=== PATIENT | female | born 1960 | race Caucasian/White ===

== ENCOUNTER 2021-07-16 17:58 | Inpatient (IN) | payer BC, SELFPAY ==
[2021-07-16] VITALS (7 sets, daily range): BP systolic 101–124; BP diastolic 48–75; PULSE 53–99; RESP 16–18; TEMP 36.3; O2SAT 91–97; BMI 25.3
--- NOTE | 2021-07-16 18:15 | XR_ITS ---
PROCEDURE INFORMATION: Exam: XR Chest Exam date and time: 07/16/2021 6:13 PM Age: 60 years old Clinical indication: Shortness of breath; Additional info: SOA TECHNIQUE: Imaging protocol: XR of the chest. Views: 2 views. COMPARISON: CR KUB KUB (SINGLE VIEW) 07/19/2015 9:05 AM FINDINGS: Lungs: Patchy ground-glass regions of opacification. Pleural spaces: Unremarkable. No pleural effusion. No pneumothorax. Heart/Mediastinum: Unremarkable. No cardiomegaly. Diaphragm: Hyperlucent changes are demonstrated. There is flattening of the hemidiaphragms. Increase in the lung volumes is demonstrated. Superimposed regions of parenchymal scarring in the upper and lower lobes are suggested. Bones/joints: Osteopenia. Scoliosis of the lower thoracic spine convexity to the left. IMPRESSION: 1. Chronic obstructive pulmonary disease. 2. Superimposed findings suggesting regions of interstitial lung disease. Could not exclude atypical viral process. Clinically correlate.
[2021-07-16 19:44] LABS: Coronavirus 19, PCR Not Detected (NotDetected); Influenza A, PCR Not Detected (NotDetected); Influenza B, PCR Not Detected (NotDetected)
[2021-07-16 20:01] LABS: Strep Scrn Group A (Rapid) Negative (Negative)
--- NOTE | 2021-07-16 21:06 | HMH.EDNVD ---
ED Disposition Clinical Impression: COPD with respiratory distress, acute, Severe sepsis with acute organ dysfunction, Hypokalemia Osteopenia Qualifiers: Osteopenia location: unspecified Qualified Code(s): M85.80 - Other specified disorders of bone density and structure, unspecified site Scoliosis Qualifiers: Scoliosis type: unspecified scoliosis Spinal region: thoracic Qualified Code(s): M41.9 - Scoliosis, unspecified Disposition: Admitted As Inpatient Condition on Discharge: Fair - Critical Care Critical Care Time: No Attestation: On 07/16/21, the high probability of a clinically significant, sudden or life threatening deterioration of the following system(s) required my full and direct attention, intervention and personal management. The time I documented below is in addition to time spent performing reported procedures but includes the following listed in this critical care notation. Medical Decision Making - Medical Records Medical records reviewed: Yes: I reviewed the patient's medical records. - Tin Inquiry Pt receiving controlled substance: No Vital Signs: 07/16/21 17:59 07/16/21 18:15 07/16/21 19:30 Temperature 97.3 F L Temperature Source Oral Pulse Rate 70 99 H Pulse Rate [Right Brachial] 53 L Respiratory Rate 16 18 Blood Pressure 111/68 104/71 L Blood Pressure [Right Arm] 121/72 Blood Pressure Mean 79 Blood Pressure Mean [Right Arm] 88 Blood Pressure Source Automatic Cuff Blood Pressure Source [Right Arm] Automatic Cuff Blood Pressure Position Sitting Blood Pressure Position [Right Arm] Sitting 02 Sat by Pulse Oximetry 91 L 94 L 92 L Oxygen Delivery Method Room Air Room Air Room Air 07/16/21 20:00 07/16/21 20:30 Temperature Temperature Source Pulse Rate 98 H 88 Pulse Rate [Right Brachial] Respiratory Rate Blood Pressure 124/75 112/66 Blood Pressure [Right Arm] Blood Pressure Mean 89 85 Blood Pressure Mean [Right Arm] Blood Pressure Source Blood Pressure Source [Right Arm] Blood Pressure Position Blood Pressure Position [Right Arm] 02 Sat by Pulse Oximetry 94 L Oxygen Delivery Method Room Air - Lab Data Lab results reviewed: Yes: I reviewed the patient's lab results. Lab Results 07/16/21 19:37: Group A Strep Rapid Negative 07/16/21 19:38: SARS-CoV-2 (PCR) Not detected, Influenza A Untype (PCR) Not detected, Influenza Type B (PCR) Not detected 07/16/21 21:07: WBC 23.6 H*, RBC 3.93 L, Hgb 13.0, Hct 39.3, MCV 100.0 H, MCH 33.2 H, MCHC 33.1, RDW 15.0, Plt Count 370, MPV 9.8, Neut % (Auto) 78.5, Lymph % (Auto) 13.6, [place] % (Auto) 4.6, Eos % (Auto) 0.7, Baso % (Auto) 2.6 H, Neut # (Auto) 18.6 H, Lymph # (Auto) 3.2, [place] # (Auto) 1.1 H, Eos # (Auto) 0.2, Baso # (Auto) 0.6 H, Total Counted 100, Neutrophils % (Manual) 65, Lymphocytes % (Manual) 30, Monocytes % (Manual) 4, Basophils % (Manual) 1.0, Platelet Estimate Normal, Anisocytosis 1+, Macrocytosis 1+, ESR 57 H 07/16/21 21:07: Sodium 134 L, Potassium 2.5 L*, Chloride 93 L, Carbon Dioxide 32 H, Anion Gap 11.5, BUN 10, Creatinine 1.20 H, Estimated Creat Clear 41, Estimated GFR 46 L, Est GFR ( Amer) 56 L, Glucose 85, Calcium 8.9, Total Bilirubin 0.4, AST 25, ALT 13, Alkaline Phosphatase 121, Troponin I < 0.01, C-Reactive Protein 263.4 H, NT-Pro-B Natriuret Pep 279 H, Total Protein 7.4, Albumin 3.6, Globulin 3.8 H, Albumin/Globulin Ratio 0.9 L, Procalcitonin 0.662, TSH 0.22 L, Thyroxine (T4) 9.2 07/16/21 21:07: Lactate 1.3 07/16/21 22:39: Specimen Source Right radial, O2 % 21, ABG pH 7.44, ABG pCO2 32.4 L, ABG pO2 54.3 L, ABG HCO3 21.6 L, ABG Total CO2 22.6 L, ABG O2 Saturation 89 L, ABG Base Excess -2.6 L, Greg Test Acceptable Result diagrams: 07/16/21 21:07 07/16/21 21:07 Orders (Tests/Meds): ED MEDICATIONS Generic Name Dose Route Start Last Admin Trade Name Freq PRN Reason Stop Dose Admin Sodium Chloride 1,000 mls @ 999 mls/hr 07/16/21 21:15 07/16/21 21:10 Sod Chlor 0.9% 1
--- NOTE | 2021-07-16 21:10 | ECG_ITS ---
APPROVED REPORT Exam: Resting ECG HR:84 bpm ECG Measurements Heart Rate 84 AXES KS 128 P 69 QRSd 82 QRS 60 QT 374 T 77 QTc 416 Conclusion SINUS RHYTHM INDETERMINATE AXIS NORMAL ECG UNCONFIRMED REPORT Electronically signed by : Martin Low MD 07/17/2021 17:23:09
[2021-07-16 21:18] LABS: Basophils # 0.6 K/mm3 (0-0.2); Basophils % 2.6 % (0.1-2.0); Eosinophils # 0.2 K/mm3 (0.0-0.4); Eosinophils % 0.7 % (0.1-12.0); Hematocrit 39.3 % (37.0-47.0); Lymphocytes # 3.2 K/mm3 (0.7-4.5); Lymphocytes % 13.6 % (10-50); Mean Corpuscular HGB Conc 33.1 g/dL (31.8-35.4); Mean Corpuscular Hemoglobin 33.2 pg (27.0-31.2); Mean Platelet Volume 9.8 fl (7.4-10.4); Monocytes # 1.1 K/mm3 (0.1-1.0); Monocytes % 4.6 % (1.7-9.3); Neutrophils # 18.6 K/mm3 (1.8-7.8); Neutrophils % 78.5 % (37.0-80.0); Platelet Count 370 K/mm3 (142-424); Red Blood Count 3.93 M/mm3 (4.20-5.40); White Blood Count 23.6 K/mm3 (4.8-10.8)
[2021-07-16 21:29] LABS: MANUAL DIFFERENTIAL MANUAL DIFFERENTIAL (MANUAL DIFF)
[2021-07-16 21:42] LABS: Alanine Aminotransferase 13 U/L (12-78); Albumin Level 3.6 g/dl (3.5-5.0); Albumin/Globulin Ratio 0.9 (1.1-1.8); Alkaline Phosphatase 121 U/L (38-126); Anion Gap 11.5 mEq/L (5-15); Aspartate Amino Transferase 25 U/L (14-36); Bilirubin,Total 0.4 mg/dl (0.2-1.3); Blood Urea Nitrogen 10 mg/dl (7-17); Calcium 8.9 mg/dl (8.4-10.2); Carbon Dioxide 32 mmol/L (22.0-30.0); Chloride 93 mmol/L (98-107); Creatinine Clearance Estimated 41 mL/min (50-200); Estimated Glomerular Filt Rate 46 ml/min (>60); GFR (African American) 56 ML/MIN (>60); Globulin 3.8 g/dL (1.3-3.2); Glucose 85 mg/dl (74-100); Sodium 134 mmol/L (136-145); Total Protein,Serum 7.4 g/dl (6.3-8.2)
[2021-07-16 21:48] LABS: C-Reactive Protein 263.4 mg/L (0-4)
[2021-07-16 21:49] LABS: Potassium 2.5 mmoL/L (3.5-5.1)
--- NOTE | 2021-07-16 21:52 | PC.NURSE ---
notified luis antonio of critical potassium
[2021-07-16 21:58] LABS: NT Pro Brain Natriuretic Pep. 279 pg/mL (0-125)
[2021-07-16 22:03] LABS: Procalcitonin 0.662 ng/mL (0.0-2.0); T4 (Thyroxine) 9.2 ug/dl (5.53-11.0)
[2021-07-16 22:15] LABS: Troponin I < 0.01 ng/ml (0.00-0.034)
[2021-07-16 22:16] LABS: Thyroid Stimulating Hormone 0.22 uIU/mL (0.465-4.68)
[2021-07-16 22:19] LABS: Anisocytosis 1+; Lymphocytes % 30 % (10-50); Macrocytosis 1+; Monocytes % 4 % (2-9); Neutrophils % 65 % (42-76); Platelet Estimate Normal; Total Cells Counted 100
[2021-07-16 22:25] LABS: Erythrocyte Sedimentation Rate 57 mm/hr (0-30)
[2021-07-16 22:26] LABS: Lactic Acid 1.3 mmol/L (0.7-2.1)
--- NOTE | 2021-07-16 22:40 | PC.NURSE ---
Dr. Allen s/w pt and family. Ambulated pt and she walked 5 feet and became SOA, dizziness and weak. Will obtain orthostatic BP
[2021-07-16 22:50] LABS: ABG Base Excess -2.6 mmol/L (-2.4-2.3); ABG HCO3 21.6 mmhg (22.0-26.0); ABG Oxygen Saturation 89 % (90-100); ABG PCO2 32.4 mmhg (35.0-45.0); ABG PH 7.44 mmol/L (7.35-7.45); ABG PO2 54.3 mmhg (80-100); ABG TCO2 22.6 mmhg (23-27); Allen's Test Acceptable; Oxygen 21 %; Source Right Radial
--- NOTE | 2021-07-16 23:44 | PC.NURSE ---
MD aware of ABG and would like to start pt on Vapotherm
[2021-07-17] VITALS (12 sets, daily range): BP systolic 102–113; BP diastolic 44–70; PULSE 65–102; RESP 16–22; TEMP 36.5–36.8; O2SAT 90–98; BMI 24.4
--- NOTE | 2021-07-17 00:12 | PC.NURSE ---
RT placed pt on vapotherm at 30L and 40%, pt tolerating well.
[2021-07-17 00:39] LABS: Troponin I < 0.01 ng/ml (0.00-0.034)
--- NOTE | 2021-07-17 01:32 | PC.NURSE ---
Patient arrived to the floor at this time via wheelchair.
[2021-07-17 03:48] LABS: Basophils # 0.2 K/mm3 (0-0.2); Basophils % 0.8 % (0.1-2.0); Eosinophils % 0.1 % (0.1-12.0); Hematocrit 36.9 % (37.0-47.0); Hemoglobin 12.1 g/dL (12.2-16.2); Lymphocytes # 1.9 K/mm3 (0.7-4.5); Lymphocytes % 8.7 % (10-50); Mean Corpuscular HGB Conc 32.7 g/dL (31.8-35.4); Mean Corpuscular Hemoglobin 33.2 pg (27.0-31.2); Mean Corpuscular Volume 101.4 fl (81-99); Mean Platelet Volume 9.7 fl (7.4-10.4); Monocytes # 0.2 K/mm3 (0.1-1.0); Neutrophils # 19.3 K/mm3 (1.8-7.8); Neutrophils % 89.3 % (37.0-80.0); Platelet Count 328 K/mm3 (142-424); Red Blood Count 3.64 M/mm3 (4.20-5.40); Red Cell Distribution Width 15.1 % (11.5-17.5)
[2021-07-17 03:49] LABS: White Blood Count 21.6 K/mm3 (4.8-10.8)
[2021-07-17 03:54] LABS: Anion Gap 15.2 mEq/L (5-15); Blood Urea Nitrogen 10 mg/dl (7-17); Calcium 8.1 mg/dl (8.4-10.2); Carbon Dioxide 24 mmol/L (22.0-30.0); Chloride 98 mmol/L (98-107); Creatinine Clearance Estimated 40 mL/min (50-200); Estimated Glomerular Filt Rate 46 ml/min (>60); GFR (African American) 56 ML/MIN (>60); Magnesium 1.7 mg/dl (1.6-2.3); Potassium 3.2 mmoL/L (3.5-5.1); Sodium 134 mmol/L (136-145)
[2021-07-17 03:56] LABS: Glucose 249 mg/dl (74-100)
[2021-07-17 04:09] LABS: Troponin I < 0.01 ng/ml (0.00-0.034)
--- NOTE | 2021-07-17 05:00 | PC.NURSE ---
Patient admitted to floor. Patient A&O x4. Patient tolerating vapotherm well sats in the high 90's. Productive cough noted. Patient now resting no new complaints at this time. VSS.
--- NOTE | 2021-07-17 09:15 | HMH.ACPN2 ---
Internal Medicine - PN: Subj *Date: 07/17/21 *Time: 18:58 Interval history: pt with slight improvement Exam Vital signs and Labs for Last 24 Hours: Temp Pulse Resp BP Pulse Ox 98.3 F 72 22 106/44 L 93 L 07/17/21 04:00 07/17/21 06:55 07/17/21 04:00 07/17/21 04:00 07/17/21 06:55 Laboratory Results - last 24 hr 07/16/21 19:37: Group A Strep Rapid Negative 07/16/21 19:38: SARS-CoV-2 (PCR) Not detected, Influenza A Untype (PCR) Not detected, Influenza Type B (PCR) Not detected 07/16/21 21:07: WBC 23.6 H*, RBC 3.93 L, Hgb 13.0, Hct 39.3, MCV 100.0 H, MCH 33.2 H, MCHC 33.1, RDW 15.0, Plt Count 370, MPV 9.8, Neut % (Auto) 78.5, Lymph % (Auto) 13.6, [place] % (Auto) 4.6, Eos % (Auto) 0.7, Baso % (Auto) 2.6 H, Neut # (Auto) 18.6 H, Lymph # (Auto) 3.2, [place] # (Auto) 1.1 H, Eos # (Auto) 0.2, Baso # (Auto) 0.6 H, Total Counted 100, Neutrophils % (Manual) 65, Lymphocytes % (Manual) 30, Monocytes % (Manual) 4, Basophils % (Manual) 1.0, Platelet Estimate Normal, Anisocytosis 1+, Macrocytosis 1+, ESR 57 H 07/16/21 21:07: Sodium 134 L, Potassium 2.5 L*, Chloride 93 L, Carbon Dioxide 32 H, Anion Gap 11.5, BUN 10, Creatinine 1.20 H, Estimated Creat Clear 41, Estimated GFR 46 L, Est GFR ( Amer) 56 L, Glucose 85, Calcium 8.9, Total Bilirubin 0.4, AST 25, ALT 13, Alkaline Phosphatase 121, Troponin I < 0.01, C-Reactive Protein 263.4 H, NT-Pro-B Natriuret Pep 279 H, Total Protein 7.4, Albumin 3.6, Globulin 3.8 H, Albumin/Globulin Ratio 0.9 L, Procalcitonin 0.662, TSH 0.22 L, Thyroxine (T4) 9.2 07/16/21 21:07: Lactate 1.3 07/16/21 22:39: Specimen Source Right radial, O2 % 21, ABG pH 7.44, ABG pCO2 32.4 L, ABG pO2 54.3 L, ABG HCO3 21.6 L, ABG Total CO2 22.6 L, ABG O2 Saturation 89 L, ABG Base Excess -2.6 L, Greg Test Acceptable 07/17/21 00:06: Troponin I < 0.01 07/17/21 03:35: Sodium 134 L, Potassium 3.2 L D, Chloride 98, Carbon Dioxide 24, Anion Gap 15.2 H, BUN 10, Creatinine 1.20 H, Estimated Creat Clear 40, Estimated GFR 46 L, Est GFR ( Amer) 56 L, Glucose 249 H D, Calcium 8.1 L, Magnesium 1.7, Troponin I < 0.01 07/17/21 03:35: WBC 21.6 H*, RBC 3.64 L, Hgb 12.1 L, Hct 36.9 L, MCV 101.4 H, MCH 33.2 H, MCHC 32.7, RDW 15.1, Plt Count 328, MPV 9.7, Neut % (Auto) 89.3 H, Lymph % (Auto) 8.7 L, [place] % (Auto) 1.0 L, Eos % (Auto) 0.1, Baso % (Auto) 0.8, Neut # (Auto) 19.3 H, Lymph # (Auto) 1.9, [place] # (Auto) 0.2, Eos # (Auto) 0.0, Baso # (Auto) 0.2 I & O for Last 24 hours: Intake & Output 07/14/21 07/15/21 07/16/21 07/17/21 11:59 11:59 11:59 11:59 Intake Total 1300 / 1300 Balance 1300 / 1300 Weight 108 lb 8 oz Microbiology Reports for the Last 24 Hours: Microbiology 07/16/21 21:50 Sputum - Expectorated Sputum Gram Stain - Final - Constitutional no acute distress - *Routine HEENT Exam Head: Present: normocephalic Eye: Present: EOMI, PERRL ENT: Present: mucous membranes dry - *Routine Neck Exam Absent: JVD - *Routine Respiratory Exam Present: decreased breath sounds, wheezes - *Routine Cardiovascular Exam Present: RRR, murmur - *Routine Abdominal Exam Present: soft - *Routine Extremities Exam Absent: calf tenderness - *Routine Skin Exam Present: intact - *Routine Neurological Exam Present: alert, CN II-XII intact - Routine Psychiatric Exam Present: normal affect Assessment and Plan (1) COPD with respiratory distress, acute Status: Acute Category: Medical Code(s): J44.1 - Chronic obstructive pulmonary disease with (acute) exacerbation (2) Osteopenia Status: Acute Qualifiers: Osteopenia location: unspecified Qualified Code(s): M85.80 - Other specified disorders of bone density and structure, unspecified site Category: Medical Code(s): M85.80 - Other specified disorders of bone density and structure, unspecified site (3) Scoliosis Status: Acute Qualifiers: Scoliosis type: unspecified scoliosis Spinal region: thoracic Qualified Code(s): M41.9 - Scolio
--- NOTE | 2021-07-17 13:13 | HMH.PHAVTE ---
[facility] Pharmacy VTE Monitoring - Patient Demographics Allergies/Adverse Reactions: Patient Allergies No Known Allergies Allergy (Verified 04/11/18 09:22) Height: 1.42 m Weight: 49.215 kg Patient Problems: Current Active Problems COPD with respiratory distress, acute (Acute) Osteopenia (Acute) Scoliosis (Acute) Severe sepsis with acute organ dysfunction (Acute) Hypokalemia (Acute) - VTE Risk Labs: VTE Related Lab Results Hgb 12.1 g/dL (12.2-16.2) L 07/17/21 03:35 Hct 36.9 % (37.0-47.0) L 07/17/21 03:35 Plt Count 328 K/mm3 (142-424) 07/17/21 03:35 BUN 10 mg/dl (7-17) 07/17/21 03:35 Creatinine 1.20 mg/dl (0.52-1.04) H 07/17/21 03:35 Estimated Creat Clear 40 mL/min (50-200) 07/17/21 03:35 Was VTE Risk Assessment Performed: Yes VTE Score: 3 VTE Risk Level: Low Risk Clinical Trial Participant: No - Prophylaxis VTE Prophylaxis Ordered?: Yes Types of VTE Prophylaxis: TEDS Knee High Location of Applied Device: Refused
--- NOTE | 2021-07-17 13:14 | HMH.PHAINT ---
MEDICATION RECONCILIATION COMPLETE USING LIST FROM MD OFFICE (DR. MARYBEL ROJAS) AND EXTERNAL PHARMACY FILL HISTORY.
--- NOTE | 2021-07-17 19:00 | HMH.HP ---
*Admission Date: 07/16/21 *Chief complaint: sob *History of present illness: this patient presented to the ed with progressive sob and prod cough over the last few days despite home meds - has known copd and tob use - pt was seen in the ed and noted to have resp failure and sepsis and was admitted with orders [facility] History I have reviewed the patient's past medical history: Yes Medical History: Reports:: Cancer (Past cervical CA) Denies:: Diabetes Mellitus Type 1, Diabetes Mellitus Type 2, Internal Pacemaker, Lung Disease, MRSA, Seizures *Have you ever received a pneumonia vaccine?: Yes *Have you received a flu vaccine this season?: No Other Medical History: Reports: Anemia, Arthritis Other Surgeries: Yes: Colonoscopy, Colon Resection, Other. No: Pacemaker Amputation: No - *Social History Last grade of school completed: 11th or 12th Smoking Status: Former smoker Tobacco Type: cigarettes # Packs/Day (cigarettes): 1 #Yrs smoked (if former smoker): 40 Smoking End Date: 07/14/21 Alcohol Intake: current Alcohol Intake Frequency:: holidays/special occasions only Substance Use Type: denies use *Occupational Status:: unemployed Housing: apartment Household Members: spouse, children *Travel in the last 8 weeks: None Family Hx:: Coronary Artery Disease, Hypertension Review of Systems - Review of Systems Review of systems:: pertinent systems reviewed and negative unless documented below - Constitutional Reports weakness, Denies fever(s) - Eyes Denies change in vision - ENT Denies sore throat - *Cardiovascular Reports shortness of breath - *Respiratory Reports change in phlegm color, Reports cough, Reports wheezing, Denies coughing up blood - *Gastrointestinal Denies abdominal pain - *Genitourinary Denies blood in urine - *Musculoskeletal Denies joint pain - Integumentary/Breasts Denies rash - *Neurologic Denies localized weakness - Psychiatric Reports anxiety Meds Home Medications Medication Instructions Recorded Confirmed Type ibuprofen 800 mg tablet 800 mg PO BID 03/07/18 07/16/21 History Adalimumab [Humira Pen] 40 mg SQ .Q2WEEK 07/16/21 07/17/21 History Albuterol Sulfate [Proair Hfa] 2 puff IH Q4HP PRN 07/16/21 07/16/21 History Escitalopram Oxalate [Lexapro] 20 mg PO DAILY 07/16/21 07/16/21 History Folic Acid [Folic Acid 1mg tablet] 1 mg PO DAILY 07/16/21 07/16/21 History Furosemide [Furosemide 20mg Tab*] 20 mg PO DAILY 07/16/21 07/16/21 History Gabapentin [Neurontin 600mg 600 mg PO DAILY 07/16/21 07/16/21 History tablet] Hydroxychloroquine Sulfate 200 mg PO DAILY 07/16/21 07/17/21 History [Plaquenil 200mg tablet] Potassium Chloride [Klor-con 20 20 meq PO BID 07/16/21 07/16/21 History mEq tablet] metHOTREXate sodium [metHOTREXate 15 mg PO WEEKLY 07/16/21 07/17/21 History 2.5mg Tablet] Famotidine [Pepcid] 40 mg PO DAILY 07/17/21 07/17/21 History Allergies Allergy/AdvReac Type Severity Reaction Status Date / Time No Known Allergies Allergy Verified 04/11/18 09:22 Exam Vital signs and Labs for Last 24 Hours: Temp Pulse Resp BP Pulse Ox 98.3 F 81 16 110/67 94 L 07/17/21 16:00 07/17/21 16:00 07/17/21 16:00 07/17/21 16:00 07/17/21 16:00 Laboratory Results - last 24 hr 07/16/21 19:37: Group A Strep Rapid Negative 07/16/21 19:38: SARS-CoV-2 (PCR) Not detected, Influenza A Untype (PCR) Not detected, Influenza Type B (PCR) Not detected 07/16/21 21:07: WBC 23.6 H*, RBC 3.93 L, Hgb 13.0, Hct 39.3, MCV 100.0 H, MCH 33.2 H, MCHC 33.1, RDW 15.0, Plt Count 370, MPV 9.8, Neut % (Auto) 78.5, Lymph % (Auto) 13.6, [place] % (Auto) 4.6, Eos % (Auto) 0.7, Baso % (Auto) 2.6 H, Neut # (Auto) 18.6 H, Lymph # (Auto) 3.2, [place] # (Auto) 1.1 H, Eos # (Auto) 0.2, Baso # (Auto) 0.6 H, Total Counted 100, Neutrophils % (Manual) 65, Lymphocytes % (Manual) 30, Monocytes % (Manual) 4, Basophils % (Manual) 1.0, Platelet Estimate Normal, Anisocytosis 1+, Macrocytosis 1+, ESR 57 H 06
[2021-07-18] VITALS (9 sets, daily range): BP systolic 98–121; BP diastolic 56–79; PULSE 58–111; RESP 16–22; TEMP 36.4–36.8; O2SAT 92–99; BMI 24.5
--- NOTE | 2021-07-18 04:00 | PC.NURSE ---
pt rested at intervals through night, coughing spells frequently noted, no productive cough, iv restarted, no other issues noted, vital signs stable, o2 at 4L pnc, lungs diminished.
--- NOTE | 2021-07-18 11:55 | HMH.ACPN2 ---
Internal Medicine - PN: Subj *Date: 07/18/21 *Time: 19:47 Interval history: doing better but still on o2 and sob with min exertion Exam Vital signs and Labs for Last 24 Hours: Temp Pulse Resp BP Pulse Ox 97.7 F 111 H 18 107/56 L 92 L 07/18/21 08:00 07/18/21 08:00 07/18/21 08:00 07/18/21 08:00 07/18/21 08:00 I & O for Last 24 hours: Intake & Output 07/15/21 07/16/21 07/17/21 07/18/21 11:59 11:59 11:59 11:59 Intake Total 1540 / 1540 2169 / 2169 Balance 1540 / 1540 2169 / 2169 Weight 108 lb 8 oz 109 lb 2.061 oz Microbiology Reports for the Last 24 Hours: Microbiology 07/16/21 19:37 Throat Group A Streptococcus Screen (LUCIUS) - Final Negative for Group A Streptococcus. 07/16/21 21:50 Sputum - Expectorated Sputum Gram Stain - Final 07/16/21 21:50 Sputum - Expectorated Sputum Sputum Culture - Preliminary - Constitutional no acute distress - *Routine HEENT Exam Head: Present: normocephalic Eye: Present: EOMI, PERRL ENT: Present: mucous membranes dry - *Routine Neck Exam Absent: JVD - *Routine Respiratory Exam Present: decreased breath sounds, prolonged expiratory phase - *Routine Cardiovascular Exam Present: RRR - *Routine Abdominal Exam Present: soft - *Routine Extremities Exam Absent: calf tenderness - *Routine Skin Exam Present: intact - *Routine Neurological Exam Present: alert, CN II-XII intact - Routine Psychiatric Exam Present: normal affect Assessment and Plan (1) COPD with respiratory distress, acute Status: Acute Category: Medical Code(s): J44.1 - Chronic obstructive pulmonary disease with (acute) exacerbation (2) Osteopenia Status: Acute Qualifiers: Osteopenia location: unspecified Qualified Code(s): M85.80 - Other specified disorders of bone density and structure, unspecified site Category: Medical Code(s): M85.80 - Other specified disorders of bone density and structure, unspecified site (3) Scoliosis Status: Acute Qualifiers: Scoliosis type: unspecified scoliosis Spinal region: thoracic Qualified Code(s): M41.9 - Scoliosis, unspecified Category: Medical Code(s): M41.9 - Scoliosis, unspecified (4) Severe sepsis with acute organ dysfunction Status: Acute Category: Medical Code(s): A41.9 - Sepsis, unspecified organism; R65.20 - Severe sepsis without septic shock (5) Hypokalemia Status: Acute Category: Medical Code(s): E87.6 - Hypokalemia
[2021-07-18 13:11] LABS: Hemoglobin A1C 5.3 % (4.0-6.0)
[2021-07-19] VITALS: BP 113/72; PULSE 75; PULSE 89; RESP 18; TEMP 36.8; O2SAT 95
[2021-07-19 04:00] VITALS: BP 117/63; PULSE 69; PULSE 70; RESP 18; TEMP 36.6; O2SAT 97
--- NOTE | 2021-07-19 04:00 | PC.NURSE ---
pt did rest well through the night related to coughing, productive at times, no complaints of pain, pt remains on room air with sats at 97%, no other issues or concerns at this time. lung sounds clear and diminished at bases.
[2021-07-19 05:00] VITALS: BMI 26.0
[2021-07-19 06:16] VITALS: PULSE 67; PULSE 70
[2021-07-19 08:00] VITALS: BP 121/78; PULSE 80; PULSE 86; RESP 18; TEMP 36.7; O2SAT 95
--- NOTE | 2021-07-19 08:00 | CA_ITS ---
APPROVED REPORT EXAM: Comprehensive 2D, Doppler, and color-flow Echocardiogram Water Safety Instructor: Homa Abraham RDCS Ht: 4 ft 7 in Wt: 109lbs BSA: 1.35 BP: 110/67 mmHg Indications: MURMUR,SOA,COPD M-Mode Dimensions RVDd 1.89 cm (0.9-2.6) LA Diam 1.87 cm (1.9-4.0) LVDd 4.82 cm (3.5-5.7) Ao Diam 3.03 cm (2.0-3.7) LVDs 3.22 cm (3.5-5.7) IVSd 0.44 cm (0.6-1.1) PWd 0.46 cm (0.6-1.1) EF (Teich) 61.70% FS 33.20% EDV (Teich) 108.60 mL ESV (Teich) 41.60 mL LV Diastology E Decel Time 243.00 (160-240 msec) E/A Ratio 1.5 Mitral Valve MV E Max Asa. 98.00 (40-130 cm/s) MV A Velocity 64.00 (40-130 cm/s) E/A Ratio 1.52 MV Decel. Time 243.00 (160-240 ms) MV PHT 71.00 ms Left Ventricle Left atrium is normal size, left ventricle is normal size, preserved left ventricular systolic function, estimated ejection fraction 55%, no regional wall motion abnormality, diastolic parameters are within normal range. There is no tissue Doppler performed. Right Ventricle Right atrium and right ventricle are normal size and contractility. Aortic Valve Aortic valve is minimally thickened and fibrosed, there is no aortic stenosis or aortic insufficiency. Mitral Valve Mitral valve grossly normal, there is trace mitral regurgitation. Tricuspid Valve Tricuspid valve grossly normal, there is trace tricuspid regurgitation, tricuspid regurgitation jet velocity is inadequate for calculation of the right ventricular systolic pressure. Pulmonic Valve Pulmonic valve is poorly visualized. Great Vessels Aortic root is normal size. Inferior vena cava normal size with normal inspiratory collapse. Pericardium No significant pericardial effusion noted. Conclusion 1. Normal left ventricular size, preserved left ventricular systolic function, estimated ejection fraction 55% with no regional wall motion abnormality, diastolic parameters are within normal range. 2. Trace mitral and tricuspid regurgitation. 3. No significant pericardial effusion noted. 4. Inferior vena cava is normal 7 normal spectral collapse. Electronically signed by : Deejay Freedman MD 07/19/2021 19:27:45
--- NOTE | 2021-07-19 10:07 | HMH.DCSUM ---
General - General Admission date:: 07/17/21 Discharge date: 07/19/21 HPI HPI: this patient presented to the ed with progressive sob and prod cough over the last few days despite home meds - has known copd and tob use - pt was seen in the ed and noted to have resp failure and sepsis and was admitted with orders Hospital Course Hospital Course: Microbiology 07/16/21 21:50 Sputum - Expectorated Sputum Gram Stain - Final 07/16/21 21:50 Sputum - Expectorated Sputum Sputum Culture - Final Normal Respiratory Katya 07/16/21 21:07 Blood Blood Culture - Preliminary NO GROWTH AFTER 48 HOURS 07/16/21 21:07 Blood Blood Culture - Preliminary NO GROWTH AFTER 48 HOURS 07/16/21 19:37 Throat Group A Streptococcus Screen (LUCIUS) - Final Negative for Group A Streptococcus. Discharge Plan (1) COPD with respiratory distress, acute- xray shows:Chronic obstructive pulmonary disease- slow taper of steroids and levaquin 750 mg po x1, and neb, will send referral to pulm as out pt, stop smoking (2) Osteopenia-continue meds and follow up with pcp (3) Scoliosis-follow up with pcp (4) Severe sepsis with acute organ dysfunction- pt states she is doing much better, weaned from o2. slow taper of steroids and levaquin 750 mg po x1, and neb. continue maintenance meds for copd (5) Hypokalemia- improved, follow up with pcp Objective Vital signs: Temp Pulse Resp BP Pulse Ox 98.0 F 86 18 121/78 95 07/19/21 08:00 07/19/21 08:00 07/19/21 08:00 07/19/21 08:00 07/19/21 08:00 no acute distress - *Routine HEENT Exam Head: Present: normocephalic Eye: Present: PERRL ENT: Present: mucous membranes moist - *Routine Neck Exam Present: supple - *Routine Respiratory Exam Present: wheezes - *Routine Cardiovascular Exam Present: RRR - *Routine Abdominal Exam Present: soft, normoactive bowel sounds. Absent: tenderness - *Routine Extremities Exam Absent: cyanosis, clubbing, edema - *Routine Skin Exam Present: warm. Absent: rash - *Routine Neurological Exam Present: alert, oriented X3 Results Labs on day of discharge: Labs from last 24 hours 07/18/21 12:35 Hemoglobin A1c 5.3 Preliminary micro results at discharge 07/16/21 21:07 Blood Culture - Preliminary Blood NO GROWTH AFTER 48 HOURS 07/16/21 21:07 Blood Culture - Preliminary Blood NO GROWTH AFTER 48 HOURS - Additional Comments rounded with dr salmon all orders per dr salmon DS: Diagnosis - Discharge Diagnosis (1) COPD with respiratory distress, acute Status: Acute (2) Osteopenia Status: Acute (3) Scoliosis Status: Acute (4) Severe sepsis with acute organ dysfunction Status: Acute (5) Hypokalemia Status: Acute Discharge Plan - Patient Discharge Instructions ACTIVITY: Continue current activity DIET: continue same diet Patient Instructions: Chronic Obstructive Pulmonary Disease, Sepsis, DI for Chronic Obstructive Pulmonary Disease, DI for Sepsis -- Adult, DI for Respiratory Failure, Respiratory Failure - Follow up Plan Follow up with: Danyelle Hawley MD [Physician] - 1 month Patsy Hair [Primary Care Provider] - 1 week Disposition: Home, Self-Care Condition at discharge:: Stable Home Medications: Home Medications Medication Instructions Recorded Confirmed Type ibuprofen 800 mg tablet 800 mg PO BID 03/07/18 07/16/21 History Adalimumab [Humira Pen] 40 mg SQ .Q2WEEK 07/16/21 07/17/21 History Albuterol Sulfate [Proair Hfa] 2 puff IH Q4HP PRN 07/16/21 07/16/21 History Escitalopram Oxalate [Lexapro] 20 mg PO DAILY 07/16/21 07/16/21 History Folic Acid [Folic Acid 1mg tablet] 1 mg PO DAILY 07/16/21 07/16/21 History Furosemide [Furosemide 20mg Tab*] 20 mg PO DAILY 07/16/21 07/16/21 History Gabapentin [Neurontin 600mg 600 mg PO DAILY 07/16/21
--- NOTE | 2021-07-20 15:10 | CARE MANAGER ---
Attempted post-discharge phone interview and no answer, will try again in the AM.
== END 2021-07-19 12:22 | disposition home or self-care (01) | DRG 189 ==
LOC: ER 22:42 → 2ND 07-17 00:08
PROVIDERS: Emergency Medicine; Admitting Provider Emergency Medicine; Emergency Provider Emergency Medicine; PCP Family Medicine; Visit Provider Emergency Medicine
DX: J96.90 Respiratory failure, unspecified, unspecified whether with hypoxia or hypercapnia (principal); J44.1 Chronic obstructive pulmonary disease with (acute) exacerbation; E87.6 Hypokalemia; M85.80 Other specified disorders of bone density and structure, unspecified site; Z85.41 Personal history of malignant neoplasm of cervix uteri; F17.210 Nicotine dependence, cigarettes, uncomplicated
CPT/HCPCS: 36415; 71046; 80048; 80053; 82803; 83036; 83605; 83735; 83880; 84145; 84436; 84443; 84484; 85007; 85025; 85651; 86140; 87040; 87070; 87205; 87430; 93005; 93306; 94640; 94760; 94761; 99285; C9803; G0238; J0456; J0696; U0003; U0005

== ENCOUNTER 2022-01-26 09:42 | Emergency (ER) | payer BC, SELFPAY ==
[2022-01-26 09:43] VITALS: BP 92/59; PULSE 97; RESP 18; TEMP 36.8; O2SAT 96; BMI 28.4
--- NOTE | 2022-01-26 09:55 | PC.NURSE ---
DR. PIERSON AT BEDSIDE
[2022-01-26 10:08] VITALS: BP 90/58; PULSE 81; RESP 17; TEMP 36.8; O2SAT 96
--- NOTE | 2022-01-26 11:11 | [facility].EDGENADL ---
Discharge Plan Disposition Patient Disposition: Home, Self-Care Condition: Fair Prescriptions Prescriptions: New valacyclovir [Valtrex] 1 gram tablet 1,000 mg PO Q8H 10 Days Qty: 30 0RF No Action ibuprofen 800 mg tablet 800 mg PO BID prednisone 10 mg tablet 10 mg PO DIRECTED Qty: 18 0RF Rx Instructions: Take 1 tablet (20mg) bid x 5 days; Take 1 tablet (10mg) daily x5 days; Take 1/2 tablet (5 mg) daily x 5 day; TAKE WITH FOOD nicotine 21 mg/24 hr patch 24 hour 21 mg TD DAILYP PRN (Reason: Nicotine Cravings) 30 Days Qty: 30 0RF levofloxacin 750 mg tablet 750 mg PO DAILY 1 Days Qty: 1 1RF [id number]-[id number]-[id number] 2-30-10 mg/5 mL syrup 5 ml PO Q4-6H PRN (Reason: Cough) 14 Days Qty: 100 0RF albuterol sulfate 90 mcg/actuation HFA aerosol inhaler 2 puff IH Q4HP PRN (Reason: Wheezing) Qty: 6.7 1RF gabapentin 600 MG tablet 600 mg PO DAILY potassium chloride 20 MEQ tablet 20 meq PO BID methotrexate sodium 2.5 MG tablet 15 mg PO WEEKLY folic acid 1 MG tablet 1 mg PO DAILY furosemide 20 MG tablet 20 mg PO DAILY hydroxychloroquine 200 MG tablet 200 mg PO DAILY escitalopram oxalate 20 MG tablet 20 mg PO DAILY adalimumab 40 MG/0.8 ML pen injector kit 40 mg SQ .Q2WEEK famotidine 40 MG tablet 40 mg PO DAILY benzonatate 100 MG capsule 100 mg PO BID PRN (Reason: Cough) Qty: 14 0RF albuterol sulfate 2.5 MG/NEB solution for nebulization 2.5 mg IH TID PRN (Reason: Wheezing) 30 Days Qty: 90 0RF Referrals Follow up/Referrals: Patsy Hair [Primary Care Provider] - See instructions Clinical Impressions Clinical Impression: HSV-1 infection Instructions Patient Instructions: DI for Cold Sores Discharge ED Provider: [facility] General Adult HPI General Chief complaint: Dental/Oral Stated complaint: possibly dehydrated, diarrhea Time Seen by Provider: 01/26/22 09:45 Mode of Arrival: Ambulatory Limitations: No Limitations Description of Symptoms (Recalled from ER Triage Doc. by RN): PT PRESENTS WITH BLISTERS TO MOUTHA ND LIPS X 3 DAYS History of Present Illness HPI narrative: Patient is a 61-year-old female who presents with concern for blisters to her lips. She says that her symptoms started 3 days ago. She says that she has had this happen in the past and they have self resolved but she says this is the worst it has ever been. She says that it is very painful. She denies any sores within her actual mouth. Denies any difficulty swallowing. Denies any headache. Denies any visual disturbances. Denies any chest or abdominal pain. She says that they started off as blisters and then have since crusted over. Related Data Home Medications Medication Instructions Recorded Confirmed ibuprofen 800 mg tablet 800 mg PO BID Pain 03/07/18 07/16/21 adalimumab 40 mg/0.8 mL 40 mg SQ .Q2WEEK rhuma arth 07/16/21 07/17/21 subcutaneous pen kit escitalopram oxalate 20 mg tablet 20 mg PO DAILY Depression 07/16/21 07/16/21 folic acid 1 mg tablet 1 mg PO DAILY Supplement 07/16/21 07/16/21 furosemide 20 mg tablet 20 mg PO DAILY Fluid 07/16/21 07/16/21 gabapentin 600 mg tablet 600 mg PO DAILY NEUROPATHY 07/16/21 07/16/21 hydroxychloroquine 200 mg tablet 200 mg PO DAILY Arthritis 07/16/21 07/17/21 methotrexate sodium 2.5 mg tablet 15 mg PO WEEKLY Arthritis 07/16/21 07/17/21 potassium chloride 20 mEq 20 meq PO BID Supplement 07/16/21 07/16/21 tablet,extended release(part/cryst) famotidine 40 mg tablet 40 mg PO DAILY GERD 07/17/21 07/17/21 Previous Rx's Medication Instructions Recorded albuterol sulfate 2.5 mg/3 mL 2.5 mg (3 mL) inhalation TID PRN 07/19/21 (0.083 %) solution for nebulization Wheezing 30 days #90 mL albuterol sulfate 90 mcg/actuation 2 puff inhalation Q4HP PRN 07/19/21 aerosol inhaler Wheezing #6.7 grams benzonatate 100 mg capsule 100 mg PO BID PRN Cough #14 caps 07/19/21 bromphenira
== END 2022-01-26 10:10 | disposition home or self-care (01) ==
PROVIDERS: Emergency Provider Student in an Organized Health Care Education/Training Program; PCP Family Medicine
DX: K13.70 Unspecified lesions of oral mucosa (principal); K13.0 Diseases of lips; B00.1 Herpesviral vesicular dermatitis; R05.9 Cough, unspecified; F17.210 Nicotine dependence, cigarettes, uncomplicated; Z79.1 Long term (current) use of non-steroidal anti-inflammatories (NSAID); Z79.51 Long term (current) use of inhaled steroids; Z79.52 Long term (current) use of systemic steroids; Z79.899 Other long term (current) drug therapy
CPT/HCPCS: 99283

== ENCOUNTER 2023-06-23 13:35 | Observation (INO) | payer OTHER, SELFPAY ==
[2023-06-23] VITALS (17 sets, daily range): BP systolic 111–156; BP diastolic 64–84; PULSE 69–112; RESP 15–21; TEMP 36.9; O2SAT 93–97; BMI 22.4; BMI 23.0
--- NOTE | 2023-06-23 13:59 | CT_ITS ---
FINAL REPORT CLINICAL HISTORY: dyspnea FINDINGS: Thin section axial CT images of the chest were obtained with contrast. 3D reformatted images were also obtained. This study was performed with techniques to keep radiation doses as low as reasonably achievable (ALARA). Individualized dose reduction techniques using automated exposure control or adjustment of mA and/or kV according to the patient''s size were employed. There is no evidence of pulmonary embolism. There is no evidence of thoracic aortic aneurysm or dissection. Multiple borderline sized mediastinal nodes are seen without evidence of adenopathy. No axillary mass or adenopathy is identified. Mild emphysema is noted with mild scarring. There are multiple small nodular opacities in the posterior right upper lobe worrisome for pneumonia or mycobacterial/fungal disease. There is no evidence of pleural effusion. The bony thorax is intact. IMPRESSION: No evidence of pulmonary embolism. Posterior right upper lobe nodular opacities worrisome for pneumonia or mycobacterial/fungal disease. Authenticated and ERN
--- NOTE | 2023-06-23 13:59 | CT_ITS ---
FINAL REPORT CLINICAL HISTORY: diffuse abd pain FINDINGS: CT OF THE ABDOMEN AND PELVIS WITH CONTRAST Axial CT images of the abdomen and pelvis were obtained after the administration of oral and iv contrast. Coronal reformatted images were also obtained and reviewed.This study was performed with techniques to keep radiation doses as low as reasonably achievable (ALARA). Individualized dose reduction techniques using automated exposure control or adjustment of mA and/or kV according to the patient's size were employed. Abdomen: The liver has an unremarkable appearance, without evidence of mass or biliary ductal dilatation. The spleen is unremarkable. No adrenal mass is present. The pancreas has an unremarkable appearance. The kidneys are normal, without evidence of mass or hydronephrosis. The aorta is normal in caliber. There are moderate vascular calcifications. There is no free fluid or adenopathy. There is a supraumbilical midline ventral hernia containing a nonobstructed loop of bowel. Pelvis: The appendix is not well-visualized. The urinary bladder is unremarkable. No inflammatory process is seen. There is no evidence of mass or adenopathy. There is no evidence of bowel obstruction. Dextroscoliosis is noted. There are postoperative changes in the mid pelvis and rectum. Postoperative changes are seen from left hip arthroplasty. IMPRESSION: Supraumbilical midline ventral hernia contains a nonobstructed loop of bowel. No acute inflammatory process. Reviewed, Interpreted and Dictated by Herman Silvestre III, MD Transcribed by Marie Loera Authenticated and . [facility]
--- NOTE | 2023-06-23 14:07 | [facility].EDGENADL ---
Discharge Plan Disposition Patient Disposition: Home, Self-Care Prescriptions Prescriptions: No Action ibuprofen 800 mg tablet 800 mg PO BID prednisone 10 mg tablet 10 mg PO DIRECTED Qty: 18 0RF Rx Instructions: Take 1 tablet (20mg) bid x 5 days; Take 1 tablet (10mg) daily x5 days; Take 1/2 tablet (5 mg) daily x 5 day; TAKE WITH FOOD nicotine 21 mg/24 hr patch 24 hour 21 mg TD DAILYP PRN (Reason: Nicotine Cravings) 30 Days Qty: 30 0RF levofloxacin 750 mg tablet 750 mg PO DAILY 1 Days Qty: 1 1RF stikfdafhncowje-pwpnfinos-SP 2-30-10 mg/5 mL syrup 5 ml PO Q4-6H PRN (Reason: Cough) 14 Days Qty: 100 0RF albuterol sulfate 90 mcg/actuation HFA aerosol inhaler 2 puff IH Q4HP PRN (Reason: Wheezing) Qty: 6.7 1RF gabapentin 600 MG tablet 600 mg PO DAILY potassium chloride 20 MEQ tablet 20 meq PO BID methotrexate sodium 2.5 MG tablet 15 mg PO WEEKLY folic acid 1 MG tablet 1 mg PO DAILY furosemide 20 MG tablet 20 mg PO DAILY hydroxychloroquine 200 MG tablet 200 mg PO DAILY escitalopram oxalate 20 MG tablet 20 mg PO DAILY adalimumab 40 MG/0.8 ML pen injector kit 40 mg SQ .Q2WEEK famotidine 40 MG tablet 40 mg PO DAILY benzonatate 100 MG capsule 100 mg PO BID PRN (Reason: Cough) Qty: 14 0RF albuterol sulfate 2.5 MG/NEB solution for nebulization 2.5 mg IH TID PRN (Reason: Wheezing) 30 Days Qty: 90 0RF valacyclovir [Valtrex] 1 gram tablet 1,000 mg PO Q8H 10 Days Qty: 30 0RF Referrals Follow up/Referrals: Patsy Hair [Primary Care Provider] - See instructions Clinical Impressions Clinical Impression: Acute exacerbation of chronic obstructive pulmonary disease, Abdominal pain, Immunosuppressed status, Sepsis Discharge ED Provider: Brandon Lux General Adult HPI <J Geoff Wu MD - Last Filed: 06/23/23 15:01> General Chief complaint: Weakness Stated complaint: cough, aches, weakness, diarrhea Time Seen by Provider: 06/23/23 13:52 Mode of Arrival: Wheelchair Source of Information: Patient Limitations: No Limitations Description of Symptoms (Recalled from ER Triage Doc. by RN): Patient reports to ED with cough, weakness, diarrhea, and decreased appetite for 1 week. History of Present Illness HPI narrative: Patient is a 62-year-old female here with multiple complaints. States that she feels significant abdominal pain over the last week with associated diarrhea also cough generalized fatigue and weakness and just not feeling well. Also has had decreased p.o. intake during that time. Has felt warm at home but has not had an objective fever. She is immunosuppressed chronically taking methotrexate and Humira for rheumatoid arthritis. She does states she has had increased cough sputum production wheezing and some shortness of breath has a known history of COPD. She has not smoked in the last week. No sick contacts that she is aware of. No blood in her stool and no vomiting. Related Data Home Medications Medication Instructions Recorded Confirmed ibuprofen 800 mg tablet 800 mg PO BID Pain 03/07/18 07/16/21 adalimumab 40 mg/0.8 mL 40 mg SQ .Q2WEEK rhuma arth 07/16/21 07/17/21 subcutaneous pen kit escitalopram oxalate 20 mg tablet 20 mg PO DAILY Depression 07/16/21 07/16/21 folic acid 1 mg tablet 1 mg PO DAILY Supplement 07/16/21 07/16/21 furosemide 20 mg tablet 20 mg PO DAILY Fluid 07/16/21 07/16/21 gabapentin 600 mg tablet 600 mg PO DAILY NEUROPATHY 07/16/21 07/16/21 hydroxychloroquine 200 mg tablet 200 mg PO DAILY Arthritis 07/16/21 07/17/21 methotrexate sodium 2.5 mg tablet 15 mg PO WEEKLY Arthritis 07/16/21 07/17/21 potassium chloride 20 mEq 20 meq PO BID Supplement 07/16/21 07/16/21 tablet,extended release(part/cryst) famotidine 40 mg tablet 40 mg PO DAILY GERD 07/17/21 07/17/21 Previous Rx's Medication Instructions Recorded albuterol sulfate 2.5 mg/3 mL 2.5 mg (3 mL) inhalation TID PRN 07/19/21 (0.083 %) solution for nebulization Wheezing 30 days #90 mL albuterol sulfate 90 mcg/actuation 2 puff inhalation Q4HP PRN 07/19/21 aerosol inhaler Wheezing #6.7 grams benzonatate 100 mg capsule 100 mg PO BID PRN Cough #14 caps 07/19/21 yqndstpgupkzwqk-yagbdcisylqjhka-QG 5 ml PO Q4-6H PRN Cough 14 days 07/19/21 2 mg-30 mg-10 mg/5 mL oral syrup #100 mL levofloxacin 750 mg tablet 750 mg PO DAILY 1 day #1 tab 07/19/21 nicotine 21 mg/24 hr daily 21 mg transdermal DAILYP PRN 07/19/21 transdermal patch Nicotine Cravings 30 days #30 patches prednisone 10 mg tablet 10 mg PO DIRECTED #18 tabs 07/19/21 valacyclovir 1 gram tablet 1,000 mg PO Q8H 10 days #30 tabs 01/26/22 (Valtrex) Allergies Allergy/AdvReac Type Severity Reaction Status Date / Time No Known Allergies Allergy Verified 04/11/18 09:22 [facility] <Hollis Wu MD - Last Filed: 06/23/23 15:01> [facility] Disclaimer: The information contained in this section may have been updated after the patient was seen, as this information can be updated by other users. Social History Smoking Status: Current every day smoker tobacco type: cigarettes packs per day: 1 alcohol intake: current alcohol intake frequency: holidays/special occasions only substance use type: denies use current occupational status: unemployed Travel in the last 8 weeks: None household members: spouse and children housing: apartment caffeine: Yes <Hollis Wu MD - Last Filed: 06/23/23 15:01> ROS Obtained: Yes All systems reviewed & no additional complaints except as documented Physical Exam <Hollis Wu MD - Last Filed: 06/23/23 15:01> General General appearance: cachectic Respiratory Respiratory exam: Present other (Nonfocal lung sounds there is some scant diffuse wheezing no significant respiratory distress she is able to speak in full sentences with normal oxygen saturations on room air) Cardiovascular Cardiovascular exam: Present normal rhythm and tachycardia (Heart rate 110 on my exam) Abdominal Exam Abdominal exam: Present other (Abdomen is nondistended however is diffusely tender no rebound or guarding) Neurological Exam Neurological exam: Present alert and oriented X3 Medical Decision Making <Hollis Wu MD - Last Filed: 06/23/23 15:01> Tin Inquiry Pt receiving controlled substance: No Vital Signs: 06/23/23 13:36 06/23/23 14:00 06/23/23 15:00 Temperature 98.5 F Temperature Source Oral Pulse Rate 101 H 96 H Pulse Rate [Right Radial] 106 H Respiratory Rate 20 15 Blood Pressure 128/75 121/75 Blood Pressure [Right Arm] 132/79 Blood Pressure Mean [Right Arm] 96 Blood Pressure Source [Right Arm] Automatic Cuff Blood Pressure Position [Right Arm] Supine 02 Sat by Pulse Oximetry 97 96 96 Oxygen Delivery Method Room Air Room Air Room Air 06/23/23 15:30 06/23/23 16:15 06/23/23 16:30 Temperature Temperature Source Pulse Rate 102 H 91 H 92 H Pulse Rate [Right Radial] Respiratory Rate 21 18 19 Blood Pressure 142/84 H 121/79 131/73 Blood Pressure [Right Arm] Blood Pressure Mean [Right Arm] Blood Pressure Source [Right Arm] Blood Pressure Position [Right Arm] 02 Sat by Pulse Oximetry 94 L 93 L 94 L Oxygen Delivery Method 06/23/23 17:00 06/23/23 17:30 06/23/23 18:00 Temperature Temperature Source Pulse Rate 87 80 80 Pulse Rate [Right Radial] Respiratory Rate 21 17 17 Blood Pressure 126/75 129/81 119/69 Blood Pressure [Right Arm] Blood Pressure Mean [Right Arm] Blood Pressure Source [Right Arm] Blood Pressure Position [Right Arm] 02 Sat by Pulse Oximetry 93 L 97 94 L Oxygen Delivery Method Lab Data Lab results reviewed: Yes I reviewed the patient's lab results. Lab Results 06/23/23 14:00: VBG pH 7.38, VBG pCO2 35.3, VBG pO2 40.1 H, VBG HCO3 20.2 L, VBG Total CO2 21.3 L, VBG O2 Saturation 76.6 H, VBG Base Excess -5.0 L, VBG Lactic Acid 2.0 06/23/23 14:04: Chlamy pneumoniae PCR Not detected, Adenovirus (PCR) Not detected, B. pertussis DNA (PCR) Not detected, Coronavirus OC43 (PCR) Not detected, Coronavirus HKU1 (PCR) Not detected, Coronavirus 229E (PCR) Not detected, SARS-CoV-2 (PCR) Not detected, Coronavirus NL63 (PCR) Not detected, Human Metapneumovir PCR Not detected, Influenza A (H1) PCR Not detected, Influ A (H1N1/09) PCR Not detected, Influenza A (H3) PCR Not detected, Influenza Type A (PCR) Not detected, Influenza Type B (PCR) Not detected, M. pneumoniae (PCR) Not detected, Parainfluenza 1 (PCR) Not detected, Parainfluenza 2 (PCR) Not detected, Parainfluenza 3 (PCR) Not detected, Parainfluenza 4 (PCR) Not detected, RSV (PCR) Not detected, Entero/Rhino (PCR) Not detected 06/23/23 14:14: WBC 14.3 H, RBC 4.13 L, Hgb 13.0, Hct 40.7, MCV 98.5, MCH 31.4 H, MCHC 31.8, RDW 16.1, Plt Count 290, MPV 9.0, Neut % (Auto) 82.4 H, Lymph % (Auto) 9.4 L, [place] % (Auto) 6.9, Eos % (Auto) 0.8, Baso % (Auto) 0.5, Neut # (Auto) 11.8 H, Lymph # (Auto) 1.4, [place] # (Auto) 1.0, Eos # (Auto) 0.1, Baso # (Auto) 0.1, Sodium 134 L, Potassium 3.2 L, Chloride 101, Carbon Dioxide 25, Anion Gap 11.2, BUN 8, Creatinine 0.90, Estimated Creat Clear 48, Estimated GFR 64, Est GFR ( Amer) 77, Glucose 148 H, Calcium 8.8, Phosphorus 3.3, Magnesium 2.1, Total Bilirubin 0.9, AST 29, ALT 22, Alkaline Phosphatase 95, Troponin I < 0.01, NT-Pro-B Natriuret Pep 308 H, Total Protein 7.7, Albumin 4.0, Globulin 3.7 H, Albumin/Globulin Ratio 1.1, Lipase 48 06/23/23 15:10: Lactate 1.1 06/23/23 16:06: Urine Color Yellow, Urine Appearance Clear, Urine pH 7.0, Ur Specific Lipscomb <= 1.005, Urine Protein Negative, Urine Glucose (UA) Negative, Urine Ketones Negative, Urine Blood 1+, Urine Nitrate Negative, Urine Bilirubin Negative, Urine Urobilinogen 1.0, Ur Leukocyte Esterase Negative, Urine RBC 3-5, Urine WBC Occasional, Ur Squamous Epith Cells Occasional, Urine Bacteria Trace 06/23/23 16:37: Troponin I < 0.01 06/23/23 14:14 06/23/23 14:14 Orders (Tests/Meds): ED MEDICATIONS Generic Name Dose Route Start Last Admin Trade Name Freq PRN Reason Stop Dose Admin Azithromycin 500 mg/ Sodium 250 mls @ 250 mls/hr 06/23/23 16:30 06/23/23 16:29 Chloride IV 07/03/23 16:29 250 mls/hr Q24H MARIPOSA Administration Sodium Chloride 10 ml 06/23/23 14:19 Sodium Chloride 0.9% 10ml Flush Syringe IV 07/23/23 14:18 NEEDED PRN Maintain IV Site Discontinued Medications Generic Name Dose Route Start Last Admin Trade Name Freq PRN Reason Stop Dose Admin Acetaminophen 1,000 mg 06/23/23 14:10 06/23/23 14:12 Acetaminophen 1,000mg/100ml Vial IV 06/23/23 14:11 1,000 mg ONCE ONE Administration Albuterol/Ipratropium 3 ml 06/23/23 13:58 06/23/23 14:10 Ipratropium/Albuterol 3 Ml Neb 06/23/23 13:59 3 ml ONCE ONE Administration Albuterol/Ipratropium 3 ml 06/23/23 19:01 06/23/23 19:05 Ipratropium/Albuterol 3 Ml [facility] 06/23/23 19:02 3 ml ONCE ONE Administration Lactated Ringer's 1,000 mls @ 999 mls/hr 06/23/23 14:00 06/23/23 14:10 Lactated Ringer's 1000 Ml Bag IV 06/23/23 15:00 999 mls/hr .Q1H1M MARIPOSA Administration Ceftriaxone Sodium 1 gm/ 50 mls @ 100 mls/hr 06/23/23 16:16 06/23/23 16:20 Sodium Chloride IV 06/23/23 16:45 100 mls/hr ONCE ONE Administration Lactated Ringer's 1,000 mls @ 999 mls/hr 06/23/23 16:16 06/23/23 16:20 Lactated Ringer's 1000 Ml Bag IV 06/23/23 17:16 999 mls/hr .Q1H1M ONE Administration Iopamidol 70 ml 06/23/23 14:48 06/23/23 14:49 Iopamidol-370 (76%);100ml Bottle IV 06/23/23 14:49 70 ml ONCE ONE Administration Methylprednisolone Sodium Succinate 125 mg 06/23/23 13:58 06/23/23 14:10 Methylprednisolone Sod Succ 125mg Vial IV 06/23/23 13:59 125 mg ONCE ONE Administration Potassium Chloride 40 meq 06/23/23 15:21 06/23/23 15:30 Potassium Chloride 20meq Tab PO 06/23/23 15:22 40 meq ONCE ONE Administration Sodium Chloride 10 ml 06/23/23 14:48 06/23/23 14:49 Sodium Chloride 0.9% 10ml Syr (Rad Only) IV 06/23/23 14:49 10 ml ONCE ONE Administration Sodium Chloride 50 ml 06/23/23 14:48 06/23/23 14:49 0.9 % Sodium Chloride 50 Ml Vial IV 06/23/23 14:49 50 ml ONCE ONE Administration ORDERS Category Date Time Status CT abdomen pelvis w con Stat Cat Scan 06/23/23 13:[address] angio chest PE protocol Stat Cat Scan 06/23/23 13:59 Completed BNP [NT Pro Brain Natriuretic Pep.] Stat Lab 06/23/23 14:14 Completed CBC w/Auto Diff [Complete Blood Count Auto Diff] Stat Lab 06/23/23 14:14 Completed CMP [Comprehensive Metabolic Panel] Stat Lab 06/23/23 14:14 Completed Full Resp Panel w/COVID ([facility]) Routine Lab 06/23/23 14:04 Completed Lactic Acid Stat Lab 06/23/23 15:10 Completed Lipase Stat Lab 06/23/23 14:14 Completed Magnesium Stat Lab 06/23/23 14:14 Completed Phosphorous Stat Lab 06/23/23 14:14 Completed Trop I [Troponin I] Stat Lab 06/23/23 14:14 Completed Troponin I Q3H Lab 06/23/23 16:37 Completed Troponin I Q3H Lab 06/23/23 20:00 Ordered UA [Urinalysis and Microscopic] Stat Lab 06/23/23 16:06 Completed Blood Culture Stat Micro 06/23/23 14:14 Received Venous Blood Gas Stat RT 06/23/23 14:00 Completed Medical Decision Narrative: 62-year-old female immune suppressed with above history and physical. She is tachycardic very ill-appearing and on my exam. Differential is broad which includes viral syndrome, COPD exacerbation, surgical pathology such as diffuse colitis, pulmonary embolism, pneumonia etc. Will get a CT scan of her chest abdomen pelvis cultures comprehensive respiratory viral panel and initiate IV fluids. She will also be given steroids and a breathing treatment for her respiratory distress Reassessment [address] scan of the patient's chest was performed at person interpreted which shows emphysematous changes but no focal consolidation or pulmonary embolism. CT scan of the patient's abdomen still pending also formal reads of both are pending. Patient does have a leukocytosis with a white blood cell count of 14 this in the setting of tachycardia and infectious concerns makes me concerned about sepsis. Remainder of her workup is still pending care will be transitioned to Dr. Nam Lux at 3 PM. <Brandon Lux MD - Last Filed: 06/23/23 19:35> Vital Signs: 06/23/23 13:36 06/23/23 14:00 06/23/23 15:00 Temperature 98.5 F Temperature Source Oral Pulse Rate 101 H 96 H Pulse Rate [Right Radial] 106 H Respiratory Rate 20 15 Blood Pressure 128/75 121/75 Blood Pressure [Right Arm] 132/79 Blood Pressure Mean [Right Arm] 96 Blood Pressure Source [Right Arm] Automatic Cuff Blood Pressure Position [Right Arm] Supine 02 Sat by Pulse Oximetry 97 96 96 Oxygen Delivery Method Room Air Room Air Room Air 06/23/23 15:30 06/23/23 16:15 06/23/23 16:30 Temperature Temperature Source Pulse Rate 102 H 91 H 92 H Pulse Rate [Right Radial] Respiratory Rate 21 18 19 Blood Pressure 142/84 H 121/79 131/73 Blood Pressure [Right Arm] Blood Pressure Mean [Right Arm] Blood Pressure Source [Right Arm] Blood Pressure Position [Right Arm] 02 Sat by Pulse Oximetry 94 L 93 L 94 L Oxygen Delivery Method 06/23/23 17:00 06/23/23 17:30 06/23/23 18:00 Temperature Temperature Source Pulse Rate 87 80 80 Pulse Rate [Right Radial] Respiratory Rate 21 17 17 Blood Pressure 126/75 129/81 119/69 Blood Pressure [Right Arm] Blood Pressure Mean [Right Arm] Blood Pressure Source [Right Arm] Blood Pressure Position [Right Arm] 02 Sat by Pulse Oximetry 93 L 97 94 L Oxygen Delivery Method Lab Data Lab Results 06/23/23 14:00: VBG pH 7.38, VBG pCO2 35.3, VBG pO2 40.1 H, VBG HCO3 20.2 L, VBG Total CO2 21.3 L, VBG O2 Saturation 76.6 H, VBG Base Excess -5.0 L, VBG Lactic Acid 2.0 06/23/23 14:04: Chlamy pneumoniae PCR Not detected, Adenovirus (PCR) Not detected, B. pertussis DNA (PCR) Not detected, Coronavirus OC43 (PCR) Not detected, Coronavirus HKU1 (PCR) Not detected, Coronavirus 229E (PCR) Not detected, SARS-CoV-2 (PCR) Not detected, Coronavirus NL63 (PCR) Not detected, Human Metapneumovir PCR Not detected, Influenza A (H1) PCR Not detected, Influ A (H1N1/09) PCR Not detected, Influenza A (H3) PCR Not detected, Influenza Type A (PCR) Not detected, Influenza Type B (PCR) Not detected, M. pneumoniae (PCR) Not detected, Parainfluenza 1 (PCR) Not detected, Parainfluenza 2 (PCR) Not detected, Parainfluenza 3 (PCR) Not detected, Parainfluenza 4 (PCR) Not detected, RSV (PCR) Not detected, Entero/Rhino (PCR) Not detected 06/23/23 14:14: WBC 14.3 H, RBC 4.13 L, Hgb 13.0, Hct 40.7, MCV 98.5, MCH 31.4 H, MCHC 31.8, RDW 16.1, Plt Count 290, MPV 9.0, Neut % (Auto) 82.4 H, Lymph % (Auto) 9.4 L, [place] % (Auto) 6.9, Eos % (Auto) 0.8, Baso % (Auto) 0.5, Neut # (Auto) 11.8 H, Lymph # (Auto) 1.4, [place] # (Auto) 1.0, Eos # (Auto) 0.1, Baso # (Auto) 0.1, Sodium 134 L, Potassium 3.2 L, Chloride 101, Carbon Dioxide 25, Anion Gap 11.2, BUN 8, Creatinine 0.90, Estimated Creat Clear 48, Estimated GFR 64, Est GFR ( Amer) 77, Glucose 148 H, Calcium 8.8, Phosphorus 3.3, Magnesium 2.1, Total Bilirubin 0.9, AST 29, ALT 22, Alkaline Phosphatase 95, Troponin I < 0.01, NT-Pro-B Natriuret Pep 308 H, Total Protein 7.7, Albumin 4.0, Globulin 3.7 H, Albumin/Globulin Ratio 1.1, Lipase 48 06/23/23 15:10: Lactate 1.1 06/23/23 16:06: Urine Color Yellow, Urine Appearance Clear, Urine pH 7.0, Ur Specific Lipscomb <= 1.005, Urine Protein Negative, Urine Glucose (UA) Negative, Urine Ketones Negative, Urine Blood 1+, Urine Nitrate Negative, Urine Bilirubin Negative, Urine Urobilinogen 1.0, Ur Leukocyte Esterase Negative, Urine RBC 3-5, Urine WBC Occasional, Ur Squamous Epith Cells Occasional, Urine Bacteria Trace 06/23/23 16:37: Troponin I < 0.01 Orders (Tests/Meds): ED MEDICATIONS Generic Name Dose Route Start Last Admin Trade Name Freq PRN Reason Stop Dose Admin Azithromycin 500 mg/ Sodium 250 mls @ 250 mls/hr 06/23/23 16:30 06/23/23 16:29 Chloride IV 07/03/23 16:29 250 mls/hr Q24H MARIPOSA Administration Sodium Chloride 10 ml 06/23/23 14:19 Sodium Chloride 0.9% 10ml Flush Syringe IV 07/23/23 14:18 NEEDED PRN Maintain IV Site Discontinued Medications Generic Name Dose Route Start Last Admin Trade Name Freq PRN Reason Stop Dose Admin Acetaminophen 1,000 mg 06/23/23 14:10 06/23/23 14:12 Acetaminophen 1,000mg/100ml Vial IV 06/23/23 14:11 1,000 mg ONCE ONE Administration Albuterol/Ipratropium 3 ml 06/23/23 13:58 06/23/23 14:10 Ipratropium/Albuterol 3 Ml Neb 06/23/23 13:59 3 ml ONCE ONE Administration Albuterol/Ipratropium 3 ml 06/23/23 19:01 06/23/23 19:05 Ipratropium/Albuterol 3 Ml Neb 06/23/23 19:02 3 ml ONCE ONE Administration Lactated Ringer's 1,000 mls @ 999 mls/hr 06/23/23 14:00 06/23/23 14:10 Lactated Ringer's 1000 Ml Bag IV 06/23/23 15:00 999 mls/hr .Q1H1M MARIPOSA Administration Ceftriaxone Sodium 1 gm/ 50 mls @ 100 mls/hr 06/23/23 16:16 06/23/23 16:20 Sodium Chloride IV 06/23/23 16:45 100 mls/hr ONCE ONE Administration Lactated Ringer's 1,000 mls @ 999 mls/hr 06/23/23 16:16 06/23/23 16:20 Lactated Ringer's 1000 Ml Bag IV 06/23/23 17:16 999 mls/hr .Q1H1M ONE Administration Iopamidol 70 ml 06/23/23 14:48 06/23/23 14:49 Iopamidol-370 (76%);100ml Bottle IV 06/23/23 14:49 70 ml ONCE ONE Administration Methylprednisolone Sodium Succinate 125 mg 06/23/23 13:58 06/23/23 14:10 Methylprednisolone Sod Succ 125mg Vial IV 06/23/23 13:59 125 mg ONCE ONE Administration Potassium Chloride 40 meq 06/23/23 15:21 06/23/23 15:30 Potassium Chloride 20meq Tab PO 06/23/23 15:22 40 meq ONCE ONE Administration Sodium Chloride 10 ml 06/23/23 14:48 06/23/23 14:49 Sodium Chloride 0.9% 10ml Syr (Rad Only) IV 06/23/23 14:49 10 ml ONCE ONE Administration Sodium Chloride 50 ml 06/23/23 14:48 06/23/23 14:49 0.9 % Sodium Chloride 50 Ml Vial IV 06/23/23 14:49 50 ml ONCE ONE Administration ORDERS Category Date Time Status CT abdomen pelvis w con Stat Cat Scan 06/23/23 13:[address] angio chest PE protocol Stat Cat Scan 06/23/23 13:59 Completed BNP [NT Pro Brain Natriuretic Pep.] Stat Lab 06/23/23 14:14 Completed CBC w/Auto Diff [Complete Blood Count Auto Diff] Stat Lab 06/23/23 14:14 Completed CMP [Comprehensive Metabolic Panel] Stat Lab 06/23/23 14:14 Completed Full Resp Panel w/COVID ([facility]) Routine Lab 06/23/23 14:04 Completed Lactic Acid Stat Lab 06/23/23 15:10 Completed Lipase Stat Lab 06/23/23 14:14 Completed Magnesium Stat Lab 06/23/23 14:14 Completed Phosphorous Stat Lab 06/23/23 14:14 Completed Trop I [Troponin I] Stat Lab 06/23/23 14:14 Completed Troponin I Q3H Lab 06/23/23 16:37 Completed Troponin I Q3H Lab 06/23/23 20:00 Ordered UA [Urinalysis and Microscopic] Stat Lab 06/23/23 16:06 Completed Blood Culture Stat Micro 06/23/23 14:14 Received Venous Blood Gas Stat RT 06/23/23 14:00 Completed Medical Decision Narrative: 62-year-old female immune suppressed with above history and physical. She is tachycardic very ill-appearing and on my exam. Differential is broad which includes viral syndrome, COPD exacerbation, surgical pathology such as diffuse colitis, pulmonary embolism, pneumonia etc. Will get a CT scan of her chest abdomen pelvis cultures comprehensive respiratory viral panel and initiate IV fluids. She will also be given steroids and a breathing treatment for her respiratory distress Reassessment [address] scan of the patient's chest was performed at person interpreted which shows emphysematous changes but no focal consolidation or pulmonary embolism. CT scan of the patient's abdomen still pending also formal reads of both are pending. Patient does have a leukocytosis with a white blood cell count of 14 this in the setting of tachycardia and infectious concerns makes me concerned about sepsis. Remainder of her workup is still pending care will be transitioned to Dr. Nam Lux at 3 PM. Brandon Lux upon assumption of care patient was hemodynamically stable, initial workup reviewed by me, hematologic labs remarkable for leukocytosis of 14.3, no acute anemia, compensated acid-base status, mild hypokalemia, initial troponin undetectably low. CT imaging conducted and formal read pending. Upon my evaluation patient had significant improvement improvement in her work of breathing, is currently having volume responsive tachycardia. Patient states that her biggest concern is her cough over the last week, she has chronic nonbloody diarrhea at baseline given that she has history of previous colon pathology status post surgical intervention with ostomy status post takedown. It is unchanged from her baseline. CT imaging concerning for posterior right upper lobe nodular opacities which may be reflective of pneumonia or mycobacterial/fungal disease. Patient is immunocompromised however she has leukocytosis with no suppression of specific cell lines and also has no specific mycobacterial risk factors with the exception of her home medications. Upon repeat evaluation patient appears improved from her initial presentation and shared decision-making discussion was had, patient has sepsis with pneumonia and feels uncomfortable going home at this time. Full sepsis bolus fluids will be deferred given the patient is euvolemic on my exam after previous resuscitation. The case was discussed with hospital medicine regarding management patient be admitted to their service for continued evaluation at this time. Critical Care <Hollis Wu MD - Last Filed: 06/23/23 15:01> Critical Care Time Critical Care Time: Yes Attestation: On 06/23/23, the high probability of a clinically significant, sudden or life threatening deterioration of the following system(s) required my full and direct attention, intervention and personal management. The time I documented below is in addition to time spent performing reported procedures but includes the following listed in this critical care notation. Total Time Total Critical Care Time: 35
[2023-06-23 14:08] LABS: Adenovirus,PCR Not Detected (NotDetected); Bordetella Pertussis Not Detected (NotDetected); Chlamydophila Pneumoniae, PCR Not Detected (NotDetected); Coronavirus 19, PCR Not Detected (NotDetected); Coronavirus 229E Not Detected (NotDetected); Coronavirus NL63 Not Detected (NotDetected); Coronavirus OC43 Not Detected (NotDetected); Coronovirus HKU1,PCR Not Detected (NotDetected); Human Metapneumovirus Not Detected (NotDetected); Influenza A, PCR Not Detected (NotDetected); Influenza AH1, 2009 Not Detected (NotDetected); Influenza AH1, PCR Not Detected (NotDetected); Influenza AH3,PCR Not Detected (NotDetected); Influenza B, PCR Not Detected (NotDetected); Mycoplasma Pneumoniae, PCR Not Detected (NotDetected); Parainfluenza 1, PCR Not Detected (NotDetected); Parainfluenza 2, PCR Not Detected (NotDetected); Parainfluenza 3, PCR Not Detected (NotDetected); Parainfluenza 4, PCR Not Detected (NotDetected); Respiratory Syncytial Virus Not Detected (NotDetected); Rhinovirus/Enterovirus Not Detected (NotDetected)
[2023-06-23] MEDS: METHYLPREDNISOLONE SOD SUCC 125MG VIAL 125 MG IV (14:10)
[2023-06-23] MEDS: LACTATED RINGERS 1000ML 1,000 ML 999 ML IV ×2 (14:10→16:20)
[2023-06-23] MEDS: IPRATROPIUM/ALBUTEROL 3 ML NEB IH ×3 (14:10→23:40)
[2023-06-23] MEDS: ACETAMINOPHEN 1,000MG/100ML VIAL 1000 MG IV (14:12)
--- NOTE | 2023-06-23 14:25 | PC.NURSE ---
Notified RT for VBG in lab
[2023-06-23 14:29] LABS: Basophils # 0.1 K/mm3 (0-0.2); Basophils % 0.5 % (0.1-2.0); Eosinophils # 0.1 K/mm3 (0.0-0.4); Eosinophils % 0.8 % (0.1-12.0); Hematocrit 40.7 % (37.0-47.0); Lymphocytes # 1.4 K/mm3 (0.7-4.5); Lymphocytes % 9.4 % (10-50); Mean Corpuscular HGB Conc 31.8 g/dL (31.8-35.4); Mean Corpuscular Hemoglobin 31.4 pg (27.0-31.2); Mean Corpuscular Volume 98.5 fl (81-99); Monocytes % 6.9 % (1.7-9.3); Neutrophils # 11.8 K/mm3 (1.8-7.8); Neutrophils % 82.4 % (37.0-80.0); Platelet Count 290 K/mm3 (142-424); Red Blood Count 4.13 M/mm3 (4.20-5.40); Red Cell Distribution Width 16.1 % (11.5-17.5); White Blood Count 14.3 K/mm3 (4.8-10.8)
[2023-06-23 14:32] LABS: Chloride 101 mmol/L (98-107); Potassium 3.2 mmoL/L (3.5-5.1); Sodium 134 mmol/L (136-145)
[2023-06-23 14:35] LABS: Alanine Aminotransferase 22 U/L (12-78); Albumin/Globulin Ratio 1.1 (1.1-1.8); Alkaline Phosphatase 95 U/L (38-126); Anion Gap 11.2 mEq/L (5-15); Aspartate Amino Transferase 29 U/L (14-36); Bilirubin,Total 0.9 mg/dl (0.2-1.3); Blood Urea Nitrogen 8 mg/dl (7-17); Carbon Dioxide 25 mmol/L (22.0-30.0); Creatinine Clearance Estimated 48 mL/min (50-200); Estimated Glomerular Filt Rate 64 ml/min (>60); GFR (African American) 77 ML/MIN (>60); Globulin 3.7 g/dL (1.3-3.2); Total Protein,Serum 7.7 g/dl (6.3-8.2)
[2023-06-23 14:36] LABS: Calcium 8.8 mg/dl (8.4-10.2); Glucose 148 mg/dl (74-100)
[2023-06-23 14:38] LABS: VBG HCO3 20.2 mmol/L (23-30); VBG Oxygen Saturation 76.6 % (50-70); VBG PCO2 35.3 mmol/L (35-51); VBG PH 7.38 mmol/L (7.31-7.41); VBG PO2 40.1 mmol/L (28-40); VBG Total CO2 21.3 mmol/L (23-27)
--- NOTE | 2023-06-23 14:39 | PC.NURSE ---
patient gone to CT at this time.
[2023-06-23] MEDS: 0.9 % SODIUM CHLORIDE 50 ML VIAL IV (14:49)
[2023-06-23] MEDS: SODIUM CHLORIDE 0.9% 10ML SYR (RAD ONLY) 10 ML IV (14:49)
[2023-06-23] MEDS: IOPAMIDOL-370 (76%);100ML BOTTLE 70 ML IV (14:49)
[2023-06-23 14:53] LABS: Magnesium 2.1 mg/dl (1.6-2.3); Phosphorous 3.3 mg/dl (2.5-4.5)
--- NOTE | 2023-06-23 14:54 | PC.NURSE ---
patient back in room at this time.
[2023-06-23 15:02] LABS: Troponin I < 0.01 ng/ml (0.00-0.034)
[2023-06-23 15:03] LABS: NT Pro Brain Natriuretic Pep. 308 pg/mL (0-125)
[2023-06-23 15:24] LABS: Lactic Acid 1.1 mmol/L (0.7-2.1)
[2023-06-23] MEDS: POTASSIUM CHLORIDE 20MEQ TAB 40 MEQ PO (15:30)
[2023-06-23 16:08] LABS: Lipase 48 U/L (23-300)
[2023-06-23 16:09] LABS: Microscopic, Urine URINE MICROSCOPIC (MICROSCOPIC)
[2023-06-23 16:13] LABS: Appearance,Urine CLEAR (Clear); Bilirubin,Urine Negative (Negative); Blood, Urine 1+ (Negative); Color,Urine YELLOW (Yellow); Glucose,Urine (UA) Negative (Negative); Ketones,Urine Negative (Negative); Leukocyte Esterase,Urine Negative (Negative); Nitrate,Urine Negative (Negative); Protein,Urine Negative (Negative); Specific Gravity, Urine <= 1.005 (1.005-1.030)
--- NOTE | 2023-06-23 16:14 | PC.NURSE ---
Rounded on patient, provided patient with warm blanket. No other needs voiced at this time.
[2023-06-23] MEDS: CEFTRIAXONE 1 GM 1 GM in 0.9 % SODIUM CHLORIDE 50 ML IV (16:20)
[2023-06-23] MEDS: AZITHROMYCIN 500 MG in 0.9 % SODIUM CHLORIDE 250 ML 250 MG IV (16:29)
[2023-06-23 16:33] LABS: Bacteria,Urine Trace /lpf; Squamous Epithelial Cell,Urine Occasional #/hpf (0-5); WBC,Urine Occasional #/hpf (0-3)
--- NOTE | 2023-06-23 16:40 | PC.NURSE ---
Notified lab of 2 hour trop sent up at this time.
--- NOTE | 2023-06-23 17:00 | PC.NURSE ---
Rounded on patient, helped with needs voiced at this time.
--- NOTE | 2023-06-23 17:02 | PC.NURSE ---
Rounded on patient, patient resting at this time. family at bedside.
[2023-06-23 17:41] LABS: Troponin I < 0.01 ng/ml (0.00-0.034)
--- NOTE | 2023-06-23 19:36 | PC.NURSE ---
called house carpenter helper for admission. pt being admitted to hospitalist for sepsis pna
--- NOTE | 2023-06-23 19:42 | P.HP_ITS ---
History of Present Illness *Admission Date: 06/23/23 *Reason for visit:: SOB, weakness and abdominal pain *History of present illness: This is a 62-year-old female PMHx of COPD, current smoker, non on home oxygen, RA on humira and methotrexate, history of perforated diverticulitis with co ncomitant resection and diverting loop ileostomy back in 2014 at which time she had a tubular adenoma, presented to ED with multiple complaints. States that she feels significant abdominal pain over the last week with associated diarrhea also cough generalized fatigue and weakness and just not feeling well. Also has had decreased p.o. intake during that time. She also report low grade fever, but had not measured. She does states she has had increased cough sputum production wheezing and some shortness of breath has a known history of COPD. She has not smoked in the last week. No sick contacts that she is aware of. No blood in her stool and no vomiting. Admitted for treatment. [facility] Disclaimer: The information contained in this section may have been updated after the patient was seen, as this information can be updated by other users. Medical History (Updated 06/24/23 @ 04:44 by Josh Buchanan APRN) Urinary tract infection Pneumonia Urinary incontinence Osteoarthritis Rheumatoid arthritis History of back pain Surgical History (Updated 06/23/23 @ 22:32 by Halley Whalen RN) History of hip replacement History of colonoscopy History of left hip replacement Family History (Updated 06/23/23 @ 22:32 by Halley Whalen RN) Other Family history of COPD (chronic obstructive pulmonary disease) Family history of arthritis Family history of cancer Family history of diabetes mellitus type I Family history of hypertension Social History Smoking Status: Current every day smoker tobacco type: cigarettes packs per day: 1 alcohol intake: current alcohol intake frequency: holidays/special occasions only substance use type: denies use current occupational status: unemployed Travel in the last 8 weeks: None household members: spouse and children housing: apartment caffeine: Yes Review of Systems Review of Systems Review of systems:: pertinent systems reviewed and negative unless documented below Meds Home Medications and Allergies Home Medications Medication Instructions Recorded Confirmed Type adalimumab 40 mg/0.8 mL 40 mg SQ [id number] 07/16/21 06/24/23 History subcutaneous pen kit escitalopram oxalate 20 mg tablet 20 mg PO DAILY 07/16/21 06/24/23 History folic acid 1 mg tablet 1 mg PO DAILY 07/16/21 06/24/23 History furosemide 20 mg tablet 20 mg PO DAILY 07/16/21 06/24/23 History hydroxychloroquine 200 mg tablet 200 mg PO DAILY 07/16/21 06/24/23 History methotrexate sodium 2.5 mg tablet 15 mg PO WEEKLY Arthritis 07/16/21 06/24/23 History potassium chloride 20 mEq 20 meq PO BID 07/16/21 06/24/23 History tablet,extended release(part/cryst) famotidine 40 mg tablet 40 mg PO DAILY 07/17/21 06/24/23 History albuterol sulfate 90 mcg/actuation 2 puff inhalation Q4HP PRN 07/19/21 06/24/23 Rx aerosol inhaler Wheezing #6.7 grams albuterol sulfate 2.5 mg/3 mL 2.5 mg IH TIDP PRN Wheezing 06/24/23 06/24/23 History (0.083 %) solution for nebulization alendronate 70 mg tablet 70 mg PO WEEKLY 06/24/23 06/24/23 History atorvastatin 40 mg tablet 40 mg PO HS 06/24/23 06/24/23 History azithromycin 500 mg tablet 500 mg PO DAILY 2 days #2 tabs 06/24/23 Rx cefdinir 300 mg capsule 300 mg PO BID 4 days #8 caps 06/24/23 Rx clopidogrel 75 mg tablet 75 mg PO DAILY 06/24/23 06/24/23 History diclofenac sodium 1 % topical gel 1 g topical HS 06/24/23 06/24/23 History duloxetine 60 mg capsule,delayed 60 mg PO HS 06/24/23 06/24/23 History release fluticasone fur. 100 mcg-umeclid 1 inh inhalation DAILY 30 days #28 06/24/23 Rx 62.5 mcg-vilant 25 mcg ea inhalat.powder (Trelegy Ellipta) gabapentin 800 mg tablet 800 mg PO BID 06/24/23 06/24/23 History lidocaine 5 % topical patch 1 patch topical DAILY 06/24/23 06/24/23 History mirtazapine 15 mg tablet 15 mg PO HS 06/24/23 06/24/23 History omeprazole 40 mg capsule,delayed 40 mg PO DAILY 06/24/23 06/24/23 History release prednisone 5 mg tablet 5 mg PO DAILYP PRN ARTHRITIS FLARE 06/24/23 06/24/23 History rimegepant 75 mg disintegrating 75 mg PO DAILYP PRN Migraine 06/24/23 06/24/23 History tablet (Nurtec ODT) Headache rivaroxaban 2.5 mg tablet (Xarelto) 2.5 mg PO BID 06/24/23 06/24/23 History terbinafine HCl 250 mg tablet 250 mg PO DAILY 06/24/23 06/24/23 History New Prescriptions to Start Prescriptions: azithromycin Braulio Soto cefdinir Braulio Soto [id number] [Trelegy Ellipta] Braulio Soto Allergies Allergy/AdvReac Type Severity Reaction Status Date / Time No Known Allergies Allergy Verified 04/11/18 09:22 Exam Data for Last 24 hours Vital signs and Labs for Last 24 Hours: Temp Pulse Resp BP Pulse Ox O2 Del Method 98.5 F 80 17 119/69 94 L Room Air 06/23/23 13:36 06/23/23 18:00 06/23/23 18:00 06/23/23 18:00 06/23/23 18:00 06/23/23 15:00 Laboratory Results - last 24 hr 06/23/23 14:00: VBG pH 7.38, VBG pCO2 35.3, VBG pO2 40.1 H, VBG HCO3 20.2 L, VBG Total CO2 21.3 L, VBG O2 Saturation 76.6 H, VBG Base Excess -5.0 L, VBG Lactic Acid 2.0 06/23/23 14:04: Chlamy pneumoniae PCR Not detected, Adenovirus (PCR) Not detected, B. pertussis DNA (PCR) Not detected, Coronavirus OC43 (PCR) Not detected, Coronavirus HKU1 (PCR) Not detected, Coronavirus 229E (PCR) Not detected, SARS-CoV-2 (PCR) Not detected, Coronavirus NL63 (PCR) Not detected, Human Metapneumovir PCR Not detected, Influenza A (H1) PCR Not detected, Influ A (H1N1/09) PCR Not detected, Influenza A (H3) PCR Not detected, Influenza Type A (PCR) Not detected, Influenza Type B (PCR) Not detected, M. pneumoniae (PCR) Not detected, Parainfluenza 1 (PCR) Not detected, Parainfluenza 2 (PCR) Not detected, Parainfluenza 3 (PCR) Not detected, Parainfluenza 4 (PCR) Not detected, RSV (PCR) Not detected, Entero/Rhino (PCR) Not detected 06/23/23 14:14: WBC 14.3 H, RBC 4.13 L, Hgb 13.0, Hct 40.7, MCV 98.5, MCH 31.4 H , MCHC 31.8, RDW 16.1, Plt Count 290, MPV 9.0, Neut % (Auto) 82.4 H, Lymph % (Auto) 9.4 L, [place] % (Auto) 6.9, Eos % (Auto) 0.8, Baso % (Auto) 0.5, Neut # (Auto) 11.8 H, Lymph # (Auto) 1.4, [place] # (Auto) 1.0, Eos # (Auto) 0.1, Baso # (Auto) 0.1, Sodium 134 L, Potassium 3.2 L, Chloride 101, Carbon Dioxide 25, Anion Gap 11.2, BUN 8, Creatinine 0.90, Estimated Creat Clear 48, Estimated GFR 64, Est GFR ( Amer) 77, Glucose 148 H, Calcium 8.8, Phosphorus 3.3, Magnesium 2.1, Total Bilirubin 0.9, AST 29, ALT 22, Alkaline Phosphatase 95, Troponin I < 0.01, NT-Pro-B Natriuret Pep 308 H, Total Protein 7.7, Albumin 4.0, Globulin 3.7 H, Albumin/Globulin Ratio 1.1, Lipase 48 06/23/23 15:10: Lactate 1.1 06/23/23 16:06: Urine Color Yellow, Urine Appearance Clear, Urine pH 7.0, Ur Specific [place] <= 1.005, Urine Protein Negative, Urine Glucose (UA) Negative, Urine Ketones Negative, Urine Blood 1+, Urine Nitrate Negative, Urine Bilirubin Negative, Urine Urobilinogen 1.0, Ur Leukocyte Esterase Negative, Urine RBC 3-5, Urine WBC Occasional, Ur Squamous Epith Cells Occasional, Urine Bacteria Trace 06/23/23 16:37: Troponin I < 0.01 I & O for Last 24 hours: Intake & Output 06/20/23 06/21/23 06/22/23 06/23/23 23:59 23:59 23:59 23:59 Weight 45.359 kg Constitutional Constitutional: mild distress, thin and cooperative *Routine HEENT Exam Head: Present normocephalic and atraumatic Eye: Present EOMI and PERRL ENT: Present mucous membranes moist *Routine Neck Exam Neck: Present supple; Absent lymphadenopathy *Routine Respiratory Exam Respiratory: Present CTA bilaterally, wheezes, diminished air movement and symmetric chest movement *Routine Cardiovascular Exam Cardiovascular: Present RRR, Normal S1, Normal S2 and tachycardia *Routine Abdominal Exam Abdominal: Present soft, normoactive bowel sounds, tenderness, guarding and surgical scars *Routine Rectal Exam Rectal:: deferred *Routine Genitalia Exam Genitalia:: deferred *Routine Extremities Exam Extremities: Absent cyanosis, clubbing or edema *Routine Skin Exam Skin: Present warm; Absent rash *Routine Neurological Exam Neurological: Present alert, oriented X3, normal reflexes and moving all extremities Routine Psychiatric Exam Psychiatric: Present normal thought process H&P: Result Imaging and Cardiology EKG: Status: image reviewed by me, Preliminary report and final report CT scan - chest: Status: image reviewed by me, Preliminary report and final report CT scan - abdomen: Status: image reviewed by me, Preliminary report and final report Assessment and Plan *Assessment and plan (1) Sepsis: Status: Acute Qualifiers: Acute respiratory failure type: with hypoxia Sepsis acute organ dysfunction status: with acute organ dysfunction Sepsis type: sepsis due to unspecified organism Severe sepsis acute organ dysfunction type: acute respiratory failure Severe sepsis shock status: without septic shock Qualified Code(s): A41.9 - Sepsis, unspecified organism; R65.20 - Severe sepsis without septic shock; J96.01 - Acute respiratory failure with hypoxia Category: Medical Code(s): A41.9 - Sepsis, unspecified organism (2) Pneumonia: Status: Acute Qualifiers: Laterality: right Lung location: upper lobe of lung Pneumonia type: due to unspecified organism Qualified Code(s): J18.9 - Pneumonia, unspecified organism Category: Medical Code(s): J18.9 - Pneumonia, unspecified organism (3) Acute exacerbation of chronic obstructive pulmonary disease: Status: Acute Category: Medical Code(s): J44.1 - Chronic obstructive pulmonary disease with (acute) exacerbation (4) Abdominal pain: Status: Acute Qualifiers: Abdominal location: unspecified location Qualified Code(s): R10.9 - Unspecified abdominal pain Category: Medical Code(s): R10.9 - Unspecified abdominal pain (5) Ventral incisional hernia without obstruction or gangrene: Status: Acute Category: Medical Code(s): K43.2 - Incisional hernia without obstruction or gangrene (6) Hypokalemia: Status: Acute Category: Medical Code(s): E87.6 - Hypokalemia (7) Immunosuppressed status: Status: Acute Category: Medical Code(s): D84.9 - Immunodeficiency, unspecified (8) Rheumatoid arthritis: Status: Acute Qualifiers: Rheumatoid arthritis location: unspecified site Rheumatoid factor presence: unspecified presence Qualified Code(s): M06.9 - Rheumatoid arthritis, unspecified Category: Medical Code(s): M06.9 - Rheumatoid arthritis, unspecified Plan 62-year-old female PMHx of COPD, current smoker, non on home oxygen, history of perforated diverticulitis with concomitant resection and diverting loop ileostomy back in 2014 at which time she had a tubular adenoma, presented to ED with abdominal pain over the last week with associated diarrhea, cough, fatigue and generalized weakness. She is immunosuppressed chronically taking methotrexate and Humira for rheumatoid arthritis. patient initially presented chronically ill appearance, work up positive for leukocytosis with a white blood cell count of 14 this in the setting of tachycardia and infectious, initiated sepsis protocols. mild hypokalemia, initial troponin undetectably low. CT of chest and abdomen obtained. concern for nodular right upper consolidation. On my assessment patient improved sepsis criteria, after fluid, douneb and initial antibiotic therapy. ED requested admission for inpatient management. agreed to proceed. Plan as follow: -Sepsis with out shock. Improved. secondary to right upper PNA Acute on chronic respiratory failure secondary to above, presented with COPD exacerbation: admit patient on continuos oxygen currently on 2L. wean off\ douneb Q 6h Started on zithromax, ceftriaxone 1g [address] of chest reviewed. the aspect nodular of the lesion, fungal, mycoplasma, even malignancy needs to be considered sputum culture BC pending continue IV maintenance. repeat and monitor labs daily VS per unit. monitor for sepsis or organs dysfunction - Abdominal pain. Improved after opiod administration secondary to ventral medial hernia, containing bowel. there is low concern to obstruction and/or encarceration. pain management. may need non urgent surgical consult -Hypokalemia: mild, likely secondary to loop diuretic replaced at ED. repeat labs . monitor for electrolytes imbalances -RA on inmunosupressed states as underlying complicated factor no on flare up pain will be manage tylenol and morphine Lovenox for DVT ppx. On protonix and famotidieb for GERD full code Rounded on patient after nurse practitioner. Personally examined and interviewed patient. Agree with exam findings and care plan as documented.
--- NOTE | 2023-06-23 19:44 | PC.NURSE ---
Report given to ESTHER Clarke
--- NOTE | 2023-06-23 19:54 | PC.NURSE ---
Patient arrived to floor via wheelchair from ED at 19:51.
[2023-06-23] MEDS: LIDOCAINE 2% 20ML VIAL 5 ML IH (20:17)
[2023-06-23 20:30] LABS: Troponin I < 0.01 ng/ml (0.00-0.034)
[2023-06-23] MEDS: PANTOPRAZOLE 40MG TABLET 40 MG PO (20:43)
[2023-06-23] MEDS: ENOXAPARIN 40MG/0.4ML SYRINGE 40 MG SQ (20:43)
[2023-06-23] MEDS: 0.9 % SODIUM CHLORIDE 1000ML 1,000 ML 50 ML IV (20:44)
--- NOTE | 2023-06-23 23:48 | PC.NURSE ---
RESP NOTE: PT ABLE TO PROVIDE SPUTUM SAMPLE WITHOUT INDUCTION. SPECIMEN SENT TO LAB.
[2023-06-24] VITALS (9 sets, daily range): BP systolic 95–128; BP diastolic 50–89; PULSE 70–110; RESP 16–20; TEMP 36.4–36.8; O2SAT 92–95; BMI 23.0
--- NOTE | 2023-06-24 04:48 | PC.NURSE ---
pt has done well through the night. pt had complaints of sob, 2L NC on for comfort. RA sats were >90. pt has a productive cough, sputum sample sent down. receiving iv fluids and breathing tx.
[2023-06-24] MEDS: IPRATROPIUM/ALBUTEROL 3 ML NEB IH ×2 (06:26→11:12)
[2023-06-24 06:52] LABS: Basophils % 0.2 % (0.1-2.0)
[2023-06-24 07:00] LABS: Eosinophils % 0.3 % (0.1-12.0); Hematocrit 36.3 % (37.0-47.0); Lymphocytes % 8.8 % (10-50); Mean Corpuscular HGB Conc 31.1 g/dL (31.8-35.4); Mean Corpuscular Hemoglobin 30.3 pg (27.0-31.2); Mean Corpuscular Volume 97.4 fl (81-99); Mean Platelet Volume 9.4 fl (7.4-10.4); Monocytes # 0.4 K/mm3 (0.1-1.0); Monocytes % 3.4 % (1.7-9.3); Neutrophils # 10.2 K/mm3 (1.8-7.8); Neutrophils % 87.4 % (37.0-80.0); Platelet Count 240 K/mm3 (142-424); Red Blood Count 3.73 M/mm3 (4.20-5.40); Red Cell Distribution Width 16.1 % (11.5-17.5); White Blood Count 11.7 K/mm3 (4.8-10.8)
[2023-06-24 07:01] LABS: Hemoglobin 11.3 g/dL (12.2-16.2)
[2023-06-24 07:02] LABS: MANUAL DIFFERENTIAL MANUAL DIFFERENTIAL (MANUAL DIFF)
[2023-06-24 07:08] LABS: Alanine Aminotransferase 18 U/L (12-78); Albumin Level 3.3 g/dl (3.5-5.0); Albumin/Globulin Ratio 1.1 (1.1-1.8); Alkaline Phosphatase 89 U/L (38-126); Anion Gap 9.8 mEq/L (5-15); Aspartate Amino Transferase 24 U/L (14-36); Bilirubin,Total 0.3 mg/dl (0.2-1.3); Blood Urea Nitrogen 8 mg/dl (7-17); Calcium 8.1 mg/dl (8.4-10.2); Carbon Dioxide 24 mmol/L (22.0-30.0); Chloride 107 mmol/L (98-107); Creatinine Clearance Estimated 63 mL/min (50-200); Estimated Glomerular Filt Rate 85 ml/min (>60); GFR (African American) 103 ML/MIN (>60); Globulin 3.1 g/dL (1.3-3.2); Glucose 143 mg/dl (74-100); Potassium 3.8 mmoL/L (3.5-5.1); Sodium 137 mmol/L (136-145); Total Protein,Serum 6.4 g/dl (6.3-8.2)
[2023-06-24 07:29] LABS: Lymphocytes % 10 % (10-50); Monocytes % 1 % (2-9); Neutrophils % 89 % (42-76); Total Cells Counted 100
[2023-06-24 07:31] LABS: Hypochromasia 1+; Platelet Estimate Normal
[2023-06-24] MEDS: PANTOPRAZOLE 40MG TABLET 40 MG PO (08:41)
[2023-06-24] MEDS: ENOXAPARIN 40MG/0.4ML SYRINGE 40 MG SQ (08:41)
[2023-06-24] MEDS: ACETAMINOPHEN 325MG TAB 650 MG PO (08:41)
--- NOTE | 2023-06-24 10:41 | HMH.PHAINT1 ---
Pharmacy Intervention Comments: MEDICATION RECONCILIATION COMPLETE USING EXTERNAL PHARMACY FILL HISTORY AND PATIENT INTERVIEW.
[2023-06-24] MEDS: FLUTICASONE/UMECLIDIN/VILANTER 100/62.5/25MCG INHALER 1 PUFF IH (11:12)
--- NOTE | 2023-06-24 11:54 | P.DS_ITS ---
General Admission date:: 06/23/23 Discharge date: 06/24/23 HPI HPI HPI: This is a 62-year-old female PMHx of COPD, current smoker, non on home oxygen, RA on humira and methotrexate, history of perforated diverticulitis with concomitant resection and diverting loop ileostomy back in 2014 at which time she had a tubular adenoma, presented to ED with multiple complaints. States that she feels significant abdominal pain over the last week with associated diarrhea also cough generalized fatigue and weakness and just not feeling well. Also has had decreased p.o. intake during that time. She also report low grade fever, but had not measured. She does states she has had increased cough sputum production wheezing and some shortness of breath has a known history of COPD. She has not smoked in the last week. No sick contacts that she is aware of. No blood in her stool and no vomiting. Admitted for treatment. Hospital Course Hospital Course Hospital Course: 62-year-old female PMHx of COPD, current smoker, non on home oxygen, history of perforated diverticulitis with concomitant resection and diverting loop ileostomy back in 2014 at which time she had a tubular adenoma, presented to ED with abdominal pain over the last week with associated diarrhea, cough, fatigue and generalized weakness. She is immunosuppressed chronically taking methotrexate and Humira for rheumatoid arthritis. patient initially presented chronically ill appearance, work up positive for leukocytosis with a white blood cell count of 14 this in the setting of tachycardia and infectious, initiated sepsis protocols. mild hypokalemia, initial troponin undetectably low. CT of chest and abdomen obtained. concern for nodular right upper consolidation. On my assessment patient improved sepsis criteria, after fluid, douneb and initial antibiotic therapy. ED requested admission for inpatient management. Medicine agreed to admit for further management. On room air by morning. White cell count improving. Stable to discharge home with outpatient therapy for community-acquired pneumonia. Would benefit from follow-up with pulmonology in the coming weeks given her emphysema and no establish care with pulmonology. Problems addressed as follows: -Sepsis with out shock. Resolved secondary to right upper PNA Acute on chronic respiratory failure secondary to above, presented with COPD exacerbation: Admitted for management overnight. Initially on 2 L oxygen. Weaned off by morning. No hypoxia below 92 with ambulation on morning of discharge. Overall doing well after receiving 1 dose of ceftriaxone and azithromycin. Transition to oral therapy to complete 5 days of cefdinir and 3 doses of 500 mg azithromycin. Continue inhalers at home. Started on Trelegy 100 inhaler. Would benefit from follow-up with pulmonology for further evaluation. Cultures obtained, still pending at discharge. Given clinical improvement and stability of patient, discharged home in the care of her . - Abdominal pain. Improved after opiod administration secondary to ventral medial hernia, containing bowel. there is low concern to obstruction and/or incarceration. Reducible on exam. -Hypokalemia: mild, likely secondary to loop diuretic. Replaced at ED. normal on morning labs at 3.8. -RA on inmunosupressed states as underlying complicated factor no on flare up. Resume home regimen at discharge. Stable to discharge home. Exam Data for Last 24 hours Vital signs and Labs for Last 24 Hours: Temp Pulse Resp BP Pulse Ox O2 Del Method O2 Flow Rate 98.0 F 99 H 20 98/59 L 92 L Room Air 2 06/24/23 11:06/24/23 11:06/24/23 11:06/24/23 11:06/24/23 11:06/24/23 11:06/24/23 06:53 Laboratory Results - last 24 hr 06/23/23 14:00: VBG pH 7.38, VBG pCO2 35.3, VBG pO2 40.1 H, VBG HCO3 20.2 L, VBG Total CO2 21.3 L, VBG O2 Saturation 76.6 H, VBG Base Excess -5.0 L, VBG Lactic Acid 2.0 06/23/23 14:04: Chlamy pneumoniae PCR Not detected, Adenovirus (PCR) Not dete cted, B. pertussis DNA (PCR) Not detected, Coronavirus OC43 (PCR) Not detected, Coronavirus HKU1 (PCR) Not detected, Coronavirus 229E (PCR) Not detected, SARS-CoV-2 (PCR) Not detected, Coronavirus NL63 (PCR) Not detected, Human Metapneumovir PCR Not detected, Influenza A (H1) PCR Not detected, Influ A (H1N1/09) PCR Not detected, Influenza A (H3) PCR Not detected, Influenza Type A (PCR) Not detected, Influenza Type B (PCR) Not detected, M. pneumoniae (PCR) Not detected, Parainfluenza 1 (PCR) Not detected, Parainfluenza 2 (PCR) Not detected, Parainfluenza 3 (PCR) Not detected, Parainfluenza 4 (PCR) Not detected, RSV (PCR) Not detected, Entero/Rhino (PCR) Not detected 06/23/23 14:14: WBC 14.3 H, RBC 4.13 L, Hgb 13.0, Hct 40.7, MCV 98.5, MCH 31.4 H , MCHC 31.8, RDW 16.1, Plt Count 290, MPV 9.0, Neut % (Auto) 82.4 H, Lymph % (Auto) 9.4 L, [place] % (Auto) 6.9, Eos % (Auto) 0.8, Baso % (Auto) 0.5, Neut # (Auto) 11.8 H, Lymph # (Auto) 1.4, [place] # (Auto) 1.0, Eos # (Auto) 0.1, Baso # (Auto) 0.1, Sodium 134 L, Potassium 3.2 L, Chloride 101, Carbon Dioxide 25, Anion Gap 11.2, BUN 8, Creatinine 0.90, Estimated Creat Clear 48, Estimated GFR 64, Est GFR ( Amer) 77, Glucose 148 H, Calcium 8.8, Phosphorus 3.3, Magnesium 2.1, Total Bilirubin 0.9, AST 29, ALT 22, Alkaline Phosphatase 95, Troponin I < 0.01, NT-Pro-B Natriuret Pep 308 H, Total Protein 7.7, Albumin 4.0, Globulin 3.7 H, Albumin/Globulin Ratio 1.1, Lipase 48 06/23/23 15:10: Lactate 1.1 06/23/23 16:06: Urine Color Yellow, Urine Appearance Clear, Urine pH 7.0, Ur Specific [place] <= 1.005, Urine Protein Negative, Urine Glucose (UA) Negative, Urine Ketones Negative, Urine Blood 1+, Urine Nitrate Negative, Urine Bilirubin Negative, Urine Urobilinogen 1.0, Ur Leukocyte Esterase Negative, Urine RBC 3-5, Urine WBC Occasional, Ur Squamous Epith Cells Occasional, Urine Bacteria Trace 06/23/23 16:37: Troponin I < 0.01 06/23/23 19:59: Troponin I < 0.01 06/24/23 06:33: WBC 11.7 H, RBC 3.73 L, Hgb 11.3 L D, Hct 36.3 L, MCV 97.4, MCH 30.3, MCHC 31.1 L, RDW 16.1, Plt Count 240, MPV 9.4, Neut % (Auto) 87.4 H, Lymph % (Auto) 8.8 L, [place] % (Auto) 3.4, Eos % (Auto) 0.3, Baso % (Auto) 0.2, Neut # (Auto) 10.2 H, Lymph # (Auto) 1.0, [place] # (Auto) 0.4, Eos # (Auto) 0.0, Baso # (Auto) 0.0, Total Counted 100, Neutrophils % (Manual) 89 H, Lymphocytes % (Manual) 10, Monocytes % (Manual) 1 L, Platelet Estimate Normal, Hypochromasia 1+, Sodium 137, Potassium 3.8, Chloride 107, Carbon Dioxide 24, Anion Gap 9.8, BUN 8, Creatinine 0.70 D, Estimated Creat Clear 63, Estimated GFR 85, Est GFR ( Amer) 103 D, Glucose 143 H, Calcium 8.1 L, Magnesium 2.0, Total Bilirubin 0.3, AST 24, ALT 18, Alkaline Phosphatase 89, Total Protein 6.4, Albumin 3.3 L D, Globulin 3.1, Albumin/Globulin Ratio 1.1 I & O for Last 24 hours: Intake & Output 06/21/23 06/22/23 06/23/23 06/24/23 23:59 23:59 23:59 23:59 Intake Total 470 / 470 Output Total 0 / 0 0 / 0 Balance 0 / 200 470 / 470 Weight 46.448 kg 46.448 kg Constitutional Constitutional: no acute distress, average body habitus and chronically ill appearing *Routine HEENT Exam Head: Present normocephalic Eye: Present EOMI and PERRL ENT: Present mucous membranes moist *Routine Neck Exam Neck: Present supple; Absent lymphadenopathy *Routine Respiratory Exam Respiratory: Present prolonged expiratory phase, wheezes and normal respiratory effort; Absent rhonchi or crackles *Routine Cardiovascular Exam Cardiovascular: Present RRR *Routine Abdominal Exam Abdominal: Present soft and normoactive bowel sounds; Absent tenderness *Routine Rectal Exam Patient deferred: visual exam *Routine Exam Patient deferred: external exam *Routine Extremities Exam Extremities: Absent cyanosis, clubbing or edema Comments: Changes in PIP and DIP joints consistent with arthritis *Routine Skin Exam Skin: Present warm; Absent rash *Routine Neurological Exam Neurological: Present alert, oriented X3 and moving all extremities; Absent altered mental status Results Data Completed and Pending Labs on day of discharge: Labs from last 24 hours 06/24/23 06/23/23 06/23/23 06:33 19:59 16:37 WBC 11.7 H RBC 3.73 L Hgb 11.3 L D Hct 36.3 L MCV 97.4 MCH 30.3 MCHC 31.1 L RDW 16.1 Plt Count 240 MPV 9.4 Neut % (Auto) 87.4 H Lymph % (Auto) 8.8 L [place] % (Auto) 3.4 Eos % (Auto) 0.3 Baso % (Auto) 0.2 Neut # (Auto) 10.2 H Lymph # (Auto) 1.0 [place] # (Auto) 0.4 Eos # (Auto) 0.0 Baso # (Auto) 0.0 Total Counted 100 Neutrophils % (Manual) 89 H Lymphocytes % (Manual) 10 Monocytes % (Manual) 1 L Platelet Estimate Normal Hypochromasia 1+ VBG pH VBG pCO2 VBG pO2 VBG HCO3 VBG Total CO2 VBG O2 Saturation VBG Base Excess VBG Lactic Acid Sodium 137 Potassium 3.8 Chloride 107 Carbon Dioxide 24 Anion Gap 9.8 BUN 8 Creatinine 0.70 D Estimated Creat Clear 63 Estimated GFR 85 Est GFR ( Amer) 103 D Glucose 143 H Lactate Calcium 8.1 L Phosphorus Magnesium 2.0 Total Bilirubin 0.3 AST 24 ALT 18 Alkaline Phosphatase 89 Troponin I < 0.01 < 0.01 NT-Pro-B Natriuret Pep Total Protein 6.4 Albumin 3.3 L D Globulin 3.1 Albumin/Globulin Ratio 1.1 Lipase Urine Color Urine Appearance Urine pH Ur Specific [place] Urine Protein Urine Glucose (UA) Urine Ketones Urine Blood Urine Nitrate Urine Bilirubin Urine Urobilinogen Ur Leukocyte Esterase Urine RBC Urine WBC Ur Squamous Epith Cells Urine Bacteria Chlamy pneumoniae PCR Adenovirus (PCR) B. pertussis DNA (PCR) Coronavirus OC43 (PCR) Coronavirus HKU1 (PCR) Coronavirus 229E (PCR) SARS-CoV-2 (PCR) Coronavirus NL63 (PCR) Human Metapneumovir PCR Influenza A (H1) PCR Influ A (H1N1/09) PCR Influenza A (H3) PCR Influenza Type A (PCR) Influenza Type B (PCR) M. pneumoniae (PCR) Parainfluenza 1 (PCR) Parainfluenza 2 (PCR) Parainfluenza 3 (PCR) Parainfluenza 4 (PCR) RSV (PCR) Entero/Rhino (PCR) 06/23/23 06/23/23 06/23/23 16:06 15:10 14:14 WBC 14.3 H RBC 4.13 L Hgb 13.0 Hct 40.7 MCV 98.5 MCH 31.4 H MCHC 31.8 RDW 16.1 Plt Count 290 MPV 9.0 Neut % (Auto) 82.4 H Lymph % (Auto) 9.4 L [place] % (Auto) 6.9 Eos % (Auto) 0.8 Baso % (Auto) 0.5 Neut # (Auto) 11.8 H Lymph # (Auto) 1.4 [place] # (Auto) 1.0 Eos # (Auto) 0.1 Baso # (Auto) 0.1 Total Counted Neutrophils % (Manual) Lymphocytes % (Manual) Monocytes % (Manual) Platelet Estimate Hypochromasia VBG pH VBG pCO2 VBG pO2 VBG HCO3 VBG Total CO2 VBG O2 Saturation VBG Base Excess VBG Lactic Acid Sodium 134 L Potassium 3.2 L Chloride 101 Carbon Dioxide 25 Anion Gap 11.2 BUN 8 Creatinine 0.90 Estimated Creat Clear 48 Estimated GFR 64 Est GFR ( Amer) 77 Glucose 148 H Lactate 1.1 Calcium 8.8 Phosphorus 3.3 Magnesium 2.1 Total Bilirubin 0.9 AST 29 ALT 22 Alkaline Phosphatase 95 Troponin I < 0.01 NT-Pro-B Natriuret Pep 308 H Total Protein 7.7 Albumin 4.0 Globulin 3.7 H Albumin/Globulin Ratio 1.1 Lipase 48 Urine Color Yellow Urine Appearance Clear Urine pH 7.0 Ur Specific [place] <= 1.005 Urine Protein Negative Urine Glucose (UA) Negative Urine Ketones Negative Urine Blood 1+ Urine Nitrate Negative Urine Bilirubin Negative Urine Urobilinogen 1.0 Ur Leukocyte Esterase Negative Urine RBC 3-5 Urine WBC Occasional Ur Squamous Epith Cells Occasional Urine Bacteria Trace Chlamy pneumoniae PCR Adenovirus (PCR) B. pertussis DNA (PCR) Coronavirus OC43 (PCR) Coronavirus HKU1 (PCR) Coronavirus 229E (PCR) SARS-CoV-2 (PCR) Coronavirus NL63 (PCR) Human Metapneumovir PCR Influenza A (H1) PCR Influ A (H1N1/) PCR Influenza A (H3) PCR Influenza Type A (PCR) Influenza Type B (PCR) M. pneumoniae (PCR) Parainfluenza 1 (PCR) Parainfluenza 2 (PCR) Parainfluenza 3 (PCR) Parainfluenza 4 (PCR) RSV (PCR) Entero/Rhino (PCR) 06/23/23 06/23/23 14:04 14:00 WBC RBC Hgb Hct MCV MCH MCHC RDW Plt Count MPV Neut % (Auto) Lymph % (Auto) [place] % (Auto) Eos % (Auto) Baso % (Auto) Neut # (Auto) Lymph # (Auto) [place] # (Auto) Eos # (Auto) Baso # (Auto) Total Counted Neutrophils % (Manual) Lymphocytes % (Manual) Monocytes % (Manual) Platelet Estimate Hypochromasia VBG pH 7.38 VBG pCO2 35.3 VBG pO2 40.1 H VBG HCO3 20.2 L VBG Total CO2 21.3 L VBG O2 Saturation 76.6 H VBG Base Excess -5.0 L VBG Lactic Acid 2.0 Sodium Potassium Chloride Carbon Dioxide Anion Gap BUN Creatinine Estimated Creat Clear Estimated GFR Est GFR ( Amer) Glucose Lactate Calcium Phosphorus Magnesium Total Bilirubin AST ALT Alkaline Phosphatase Troponin I NT-Pro-B Natriuret Pep Total Protein Albumin Globulin Albumin/Globulin Ratio Lipase Urine Color Urine Appearance Urine pH Ur Specific [place] Urine Protein Urine Glucose (UA) Urine Ketones Urine Blood Urine Nitrate Urine Bilirubin Urine Urobilinogen Ur Leukocyte Esterase Urine RBC Urine WBC Ur Squamous Epith Cells Urine Bacteria Chlamy pneumoniae PCR Not detected Adenovirus (PCR) Not detected B. pertussis DNA (PCR) Not detected Coronavirus OC43 (PCR) Not detected Coronavirus HKU1 (PCR) Not detected Coronavirus 229E (PCR) Not detected SARS-CoV-2 (PCR) Not detected Coronavirus NL63 (PCR) Not detected Human Metapneumovir PCR Not detected Influenza A (H1) PCR Not detected Influ A (H1N1/09) PCR Not detected Influenza A (H3) PCR Not detected Influenza Type A (PCR) Not detected Influenza Type B (PCR) Not detected M. pneumoniae (PCR) Not detected Parainfluenza 1 (PCR) Not detected Parainfluenza 2 (PCR) Not detected Parainfluenza 3 (PCR) Not detected Parainfluenza 4 (PCR) Not detected RSV (PCR) Not detected Entero/Rhino (PCR) Not detected DS: Diagnosis Discharge Diagnosis (1) Sepsis: Status: Acute Code(s): A41.9 - Sepsis, unspecified organism Qualifiers: Acute respiratory failure type: with hypoxia Sepsis acute organ dysfunction status: with acute organ dysfunction Sepsis type: sepsis due to unspecified organism Severe sepsis acute organ dysfunction type: acute respiratory failure Severe sepsis shock status: without septic shock Qualified Code(s): A41.9 - Sepsis, unspecified organism; R65.20 - Severe sepsis without septic shock; J96.01 - Acute respiratory failure with hypoxia (2) Pneumonia: Status: Acute Code(s): J18.9 - Pneumonia, unspecified organism Qualifiers: Laterality: right Lung location: upper lobe of lung Pneumonia type: due to unspecified organism Qualified Code(s): J18.9 - Pneumonia, unspecified organism (3) Acute exacerbation of chronic obstructive pulmonary disease: Status: Acute Code(s): J44.1 - Chronic obstructive pulmonary disease with (acute) exacerbation (4) Abdominal pain: Status: Acute Code(s): R10.9 - Unspecified abdominal pain Qualifiers: Abdominal location: unspecified location Qualified Code(s): R10.9 - Unspecified abdominal pain (5) Ventral incisional hernia without obstruction or gangrene: Status: Acute Code(s): K43.2 - Incisional hernia without obstruction or gangrene (6) Hypokalemia: Status: Acute Code(s): E87.6 - Hypokalemia (7) Immunosuppressed status: Status: Acute Code(s): D84.9 - Immunodeficiency, unspecified (8) Rheumatoid arthritis: Status: Acute Code(s): M06.9 - Rheumatoid arthritis, unspecified Qualifiers: Rheumatoid arthritis location: unspecified site Rheumatoid factor presence: unspecified presence Qualified Code(s): M06.9 - Rheumatoid arthritis, unspecified Meds Home Medications and Allergies Home Medications Medication Instructions Recorded Confirmed Type adalimumab 40 mg/0.8 mL 40 mg SQ [id number] 07/16/21 06/24/23 History subcutaneous pen kit escitalopram oxalate 20 mg tablet 20 mg PO DAILY 07/16/21 06/24/23 History folic acid 1 mg tablet 1 mg PO DAILY 07/16/21 06/24/23 History furosemide 20 mg tablet 20 mg PO DAILY 07/16/21 06/24/23 History hydroxychloroquine 200 mg tablet 200 mg PO DAILY 07/16/21 06/24/23 History methotrexate sodium 2.5 mg tablet 15 mg PO WEEKLY Arthritis 07/16/21 06/24/23 History potassium chloride 20 mEq 20 meq PO BID 07/16/21 06/24/23 History tablet,extended release(part/cryst) famotidine 40 mg tablet 40 mg PO DAILY 07/17/21 06/24/23 History albuterol sulfate 90 mcg/actuation 2 puff inhalation Q4HP PRN 07/19/21 06/24/23 Rx aerosol inhaler Wheezing #6.7 grams albuterol sulfate 2.5 mg/3 mL 2.5 mg IH TIDP PRN Wheezing 06/24/23 06/24/23 History (0.083 %) solution for nebulization alendronate 70 mg tablet 70 mg PO WEEKLY 06/24/23 06/24/23 History atorvastatin 40 mg tablet 40 mg PO HS 06/24/23 06/24/23 History azithromycin 500 mg tablet 500 mg PO DAILY 2 days #2 tabs 06/24/23 Rx cefdinir 300 mg capsule 300 mg PO BID 4 days #8 caps 06/24/23 Rx clopidogrel 75 mg tablet 75 mg PO DAILY 06/24/23 06/24/23 History diclofenac sodium 1 % topical gel 1 g topical HS 06/24/23 06/24/23 History duloxetine 60 mg capsule,delayed 60 mg PO HS 06/24/23 06/24/23 History release fluticasone fur. 100 mcg-umeclid 1 inh inhalation DAILY 30 days #28 06/24/23 Rx 62.5 mcg-vilant 25 mcg ea inhalat.powder (Trelegy Ellipta) gabapentin 800 mg tablet 800 mg PO BID 06/24/23 06/24/23 History lidocaine 5 % topical patch 1 patch topical DAILY 06/24/23 06/24/23 History mirtazapine 15 mg tablet 15 mg PO HS 06/24/23 06/24/23 History omeprazole 40 mg capsule,delayed 40 mg PO DAILY 06/24/23 06/24/23 History release prednisone 5 mg tablet 5 mg PO DAILYP PRN ARTHRITIS FLARE 06/24/23 06/24/23 History rimegepant 75 mg disintegrating 75 mg PO DAILYP PRN Migraine 06/24/23 06/24/23 History tablet (Nurtec ODT) Headache rivaroxaban 2.5 mg tablet (Xarelto) 2.5 mg PO BID 06/24/23 06/24/23 History terbinafine HCl 250 mg tablet 250 mg PO DAILY 06/24/23 06/24/23 History New Prescriptions to Start Prescriptions: Braulio Luz cefdinir Braulio Soto [id number] [Trelegy Ellipta] Braulio Soto Allergies Allergy/AdvReac Type Severity Reaction Status Date / Time No Known Allergies Allergy Verified 04/11/18 09:22 Discharge Plan Disposition Patient Disposition: Home, Self-Care Condition: Fair Follow up Plan Follow up with: Danyelle Hawley MD [Physician] - Enter time for follow up (please call for appointment ) Patsy Hair [Primary Care Provider] - Enter time for follow up (please call for appointment) Prescriptions/Medication Reconciliation: New Trelegy Ellipta 100-62.5-25 mcg Blister With Device 1 inh inhalation DAILY 30 Days Qty: 28 0RF azithromycin 500 mg tablet 500 mg PO DAILY 2 Days Qty: 2 0RF Rx Instructions: take first dose tonight cefdinir 300 mg capsule 300 mg PO BID 4 Days Qty: 8 0RF Continued albuterol sulfate 90 mcg/actuation HFA aerosol inhaler 2 puff IH Q4HP PRN (Reason: Wheezing) Qty: 6.7 1RF potassium chloride 20 MEQ tablet 20 meq PO BID methotrexate sodium 2.5 MG tablet 15 mg PO WEEKLY Rx Instructions: PATIENT TAKES ON MONDAYS folic acid 1 MG tablet 1 mg PO DAILY furosemide 20 MG tablet 20 mg PO DAILY hydroxychloroquine 200 MG tablet 200 mg PO DAILY escitalopram oxalate 20 MG tablet 20 mg PO DAILY adalimumab 40 MG/0.8 ML pen injector kit 40 mg SQ [id number] Rx Instructions: PATIENT TAKES ON MONDAYS EVERY 2 WEEKS famotidine 40 MG tablet 40 mg PO DAILY atorvastatin 40 mg tablet 40 mg PO HS alendronate 70 mg tablet 70 mg PO WEEKLY Rx Instructions: PATIENT TAKES ON FRIDAYS prednisone 5 mg tablet 5 mg PO DAILYP PRN (Reason: ARTHRITIS FLARE) Rx Instructions: PATIENT STATES SHE ONLY TAKES THIS DAILY NEEDED FOR AN ARTHRITIS FLARE. clopidogrel 75 mg tablet 75 mg PO DAILY omeprazole 40 mg capsule,delayed release(DR/EC) 40 mg PO DAILY terbinafine HCl 250 mg tablet 250 mg PO DAILY gabapentin 800 mg tablet 800 mg PO BID lidocaine 5 % adhesive patch,medicated 1 patch topical DAILY mirtazapine 15 mg tablet 15 mg PO HS diclofenac sodium 1 % gel 1 g TOPICAL HS Xarelto 2.5 mg tablet 2.5 mg PO BID Nurtec ODT 75 mg tablet,disintegrating 75 mg PO DAILYP PRN (Reason: Migraine Headache) albuterol sulfate 2.5 MG/NEB solution for nebulization 2.5 mg IH TIDP PRN (Reason: Wheezing) duloxetine 60 mg capsule,delayed release(DR/EC) 60 mg PO HS Problem Reconciliation Problems Reviewed?: Yes Patient Discharge Instructions ACTIVITY: Continue current activity DIET: continue same diet Patient Instructions: DI for Pneumonia -- Adult, DI for Shortness of Breath, DI for Muscle Weakness, DI for Sepsis -- Adult Providers Primary Care Provider: Patsy Hair Admit Provider: Braulio Soto Attending Provider: Braulio Soto
--- NOTE | 2023-06-24 14:10 | HMH.PHAINT1 ---
Pharmacy Intervention Comments: DISCHARGE MEDICATION COUNSELING PROVIDED. DISCUSSED STARTING THE FOLLOWING: -CEFDINIR (ANTIBIOTIC, TWICE DAILY, START TONIGHT, TAKE WITH FOOD, N/V/D POSSIBLE) -AZITHROMYCIN (ANTIBIOTIC, DAILY, START TONIGHT, TAKE WITH FOOD, N/V/D POSSIBLE) -TRELEGY (MAINTENANCE INHALER FOR COPD, HAS TO BE TAKEN DAILY TO BE EFFECTIVE, ONE PUFF DAILY, RINSE MOUTH AFTER USE TO AVOID THRUSH) PATIENT VERBALIZED NO QUESTIONS AT THIS TIME.
--- NOTE | 2023-06-26 13:05 | CARE MANAGER ---
Contacted patient related to hospital discharge. She states she still feels pretty lousy. She is taking her antibiotics and using nebulizers. She has not made her follow up appointments yet. She is going to call her PCP and I transferred her to pulmonology to make an appointment. ESTHER Hinton
== END 2023-06-24 14:57 | disposition home or self-care (01) ==
LOC: ER 16:32 → 2ND 19:54
PROVIDERS: Nurse Practitioner Family; Student in an Organized Health Care Education/Training Program; Admitting Provider Internal Medicine Adolescent Medicine; Emergency Provider Emergency Medicine; PCP Family Medicine; Visit Provider Internal Medicine Adolescent Medicine
DX: J96.01 Acute respiratory failure with hypoxia (principal); F17.210 Nicotine dependence, cigarettes, uncomplicated; Z79.899 Other long term (current) drug therapy; Z79.01 Long term (current) use of anticoagulants; D84.9 Immunodeficiency, unspecified; R06.02 Shortness of breath; J44.1 Chronic obstructive pulmonary disease with (acute) exacerbation; E87.6 Hypokalemia; M06.9 Rheumatoid arthritis, unspecified; K43.2 Incisional hernia without obstruction or gangrene
CPT/HCPCS: 36415; 71275; 74177; 80053; 81001; 82803; 83605; 83690; 83735; 83880; 84100; 84484; 85007; 85025; 87040; 87070; 87205; 87581; 87632; 87635; 87798; 94640; 99291; G0378; J0131; J0456; J0696; Q9967

== ENCOUNTER 2023-10-10 19:51 | Emergency (ER) | payer OTHER, SELFPAY ==
[2023-10-10] VITALS (8 sets, daily range): BP systolic 102–124; BP diastolic 63–71; PULSE 88–100; RESP 12–22; TEMP 36.7–37.2; O2SAT 92–100; BMI 28.4
--- NOTE | 2023-10-10 20:03 | HMH.EDGENADL ---
Discharge Plan Disposition Patient Disposition: Home, Self-Care Prescriptions Prescriptions: New prednisone 20 mg tablet 40 mg PO DAILY 5 Days Qty: 10 0RF No Action albuterol sulfate 90 mcg/actuation HFA aerosol inhaler 2 puff IH Q4HP PRN (Reason: Wheezing) Qty: 6.7 1RF potassium chloride 20 MEQ tablet 20 meq PO BID methotrexate sodium 2.5 MG tablet 15 mg PO WEEKLY Rx Instructions: PATIENT TAKES ON MONDAYS folic acid 1 MG tablet 1 mg PO DAILY furosemide 20 MG tablet 20 mg PO DAILY hydroxychloroquine 200 MG tablet 200 mg PO DAILY escitalopram oxalate 20 MG tablet 20 mg PO DAILY adalimumab 40 MG/0.8 ML pen injector kit 40 mg SQ .[id number] Rx Instructions: PATIENT TAKES ON MONDAYS EVERY 2 WEEKS famotidine 40 MG tablet 40 mg PO DAILY atorvastatin 40 mg tablet 40 mg PO HS alendronate 70 mg tablet 70 mg PO WEEKLY Rx Instructions: PATIENT TAKES ON FRIDAYS prednisone 5 mg tablet 5 mg PO DAILYP PRN (Reason: ARTHRITIS FLARE) Rx Instructions: PATIENT STATES SHE ONLY TAKES THIS DAILY NEEDED FOR AN ARTHRITIS FLARE. clopidogrel 75 mg tablet 75 mg PO DAILY omeprazole 40 mg capsule,delayed release(DR/EC) 40 mg PO DAILY terbinafine HCl 250 mg tablet 250 mg PO DAILY gabapentin 800 mg tablet 800 mg PO BID lidocaine 5 % adhesive patch,medicated 1 patch topical DAILY mirtazapine 15 mg tablet 15 mg PO HS diclofenac sodium 1 % gel 1 g TOPICAL HS Xarelto 2.5 mg tablet 2.5 mg PO BID Nurtec ODT 75 mg tablet,disintegrating 75 mg PO DAILYP PRN (Reason: Migraine Headache) albuterol sulfate 2.5 MG/NEB solution for nebulization 2.5 mg IH TIDP PRN (Reason: Wheezing) duloxetine 60 mg capsule,delayed release(DR/EC) 60 mg PO HS Trelegy Ellipta 100-62.5-25 mcg Blister With Device 1 inh inhalation DAILY 30 Days Qty: 28 0RF azithromycin 500 mg tablet 500 mg PO DAILY 2 Days Qty: 2 0RF Rx Instructions: take first dose tonight cefdinir 300 mg capsule 300 mg PO BID 4 Days Qty: 8 0RF Referrals Follow up/Referrals: Patsy Hair [Primary Care Provider] - See instructions Activity Restrictions/Add. Instructions Additional Instructions/Restrictions: Follow-up with your family doctor regarding this visit to the emergency department and need for orthopedic follow-up. Prednisone 40 mg the next 5 days. Be sure to ice your knee as well. Call your family doctor to establish care for this visit to the emergency department and schedule follow-up within 48 hours to ensure improvement. If you have any worsening of your condition or any other concerning signs or symptoms, return to the emergency department or your primary care doctor for further evaluation. Clinical Impressions Clinical Impression: Acute pain of left knee Print Language Print Language: Kittitian Discharge ED Provider: Ryley Kaplan General Adult HPI <LA Cox - Last Filed: 10/10/23 20:13> General Chief complaint: Recheck/Abnormal Lab/Rx Stated complaint: bilateral leg swelling , out of meds Time Seen by Provider: 10/10/23 19:57 Related Data Home Medications ?Medication ?Instructions ?Recorded ?Confirmed adalimumab 40 mg/0.8 mL 40 mg SQ .[id number] 07/16/21 06/24/23 subcutaneous pen kit escitalopram oxalate 20 mg tablet 20 mg PO DAILY 07/16/21 06/24/23 folic acid 1 mg tablet 1 mg PO DAILY 07/16/21 06/24/23 furosemide 20 mg tablet 20 mg PO DAILY 07/16/21 06/24/23 hydroxychloroquine 200 mg tablet 200 mg PO DAILY 07/16/21 06/24/23 methotrexate sodium 2.5 mg tablet 15 mg PO WEEKLY Arthritis 07/16/21 06/24/23 potassium chloride 20 mEq 20 meq PO BID 07/16/21 06/24/23 tablet,extended release(part/cryst) famotidine 40 mg tablet 40 mg PO DAILY 07/17/21 06/24/23 albuterol sulfate 2.5 mg/3 mL 2.5 mg IH TIDP PRN Wheezing 06/24/23 06/24/23 (0.083 %) solution for nebulizat
--- NOTE | 2023-10-10 20:07 | ECG_ITS ---
APPROVED REPORT Exam: Resting ECG HR:93 bpm ECG Measurements Heart Rate 93 AXES OH 146 P 69 QRSd 87 QRS 80 QT 356 T 75 QTc 406 Conclusion Sinus rhythm Electronically signed by : ETHAN DOVE, 10/10/2023 21:29:48
--- NOTE | 2023-10-10 20:18 | XR_ITS ---
PROCEDURE INFORMATION: Exam: XR Right Hip Exam date and time: 10/10/2023 8:24 PM Age: 63 years old Clinical indication: Injury or trauma; Other: Fall with severe pain after; Additional info: Right hip and knee pain after fall TECHNIQUE: Imaging protocol: Radiologic exam of the right hip. Views: 2 or 3 views hip with pelvis when performed. COMPARISON: CT ABDOMEN PELVIS W CON 06/23/2023 2:39 PM FINDINGS: Bones/joints: Osseous alignment is normal. No acute fracture. No significant arthritic change. Soft tissues: Unremarkable. IMPRESSION: Negative right hip
--- NOTE | 2023-10-10 20:18 | XR_ITS ---
PROCEDURE INFORMATION: Exam: XR Right Knee Exam date and time: 10/10/2023 8:24 PM Age: 63 years old Clinical indication: Injury or trauma; Other: Fall with severe pain after; Additional info: Moderat pain after fall TECHNIQUE: Imaging protocol: Radiologic exam of the right knee. Views: 3 views. COMPARISON: CR XR FEMUR RT 2V 10/10/2023 8:24 PM FINDINGS: Bones/joints: Bones are diffusely osteopenic. Chronic appearing deformity of the proximal tibial diaphysis and lateral tibial plateau compatible with old, healed fractures. No acute fracture. Moderate degenerative changes noted in the right knee. No significant joint fluid. Soft tissues: Normal. IMPRESSION: No acute abnormality. Chronic findings as noted.
--- NOTE | 2023-10-10 20:18 | XR_ITS ---
PROCEDURE INFORMATION: Exam: XR Left Hip Exam date and time: 10/10/2023 8:24 PM Age: 63 years old Clinical indication: Injury or trauma; Other: Fall with severe pain after; Additional info: Left hip and knee pain after fall TECHNIQUE: Imaging protocol: Radiologic exam of the left hip. Views: 2 or 3 views hip with pelvis when performed. COMPARISON: CT ABDOMEN PELVIS W CON 06/23/2023 2:39 PM FINDINGS: Bones/joints: Left hip prosthesis in place. No evidence of hardware failure or loosening. No acute fracture. Bones appear osteopenic. Degenerative changes noted in the lower lumbar spine Soft tissues: Unremarkable. IMPRESSION: No acute abnormality
--- NOTE | 2023-10-10 20:18 | XR_ITS ---
PROCEDURE INFORMATION: Exam: XR Left Femur Exam date and time: 10/10/2023 8:24 PM Age: 63 years old Clinical indication: Injury or trauma; Other: Fall with severe pain after; Additional info: Bilateral hip and knee pain after fall TECHNIQUE: Imaging protocol: Radiologic exam of the left femur. Views: 2 views. COMPARISON: CR XR FEMUR LT 2V 10/10/2023 8:24 PM FINDINGS: Bones/joints: Left hip prosthesis in place. Osseous alignment appears normal. No evidence of acute fracture. Mottled lucency and adjacent sclerosis noted in the mid femoral diaphysis. Adjacent nonaggressive appearing periosteal thickening. No frankly destructive changes noted. Soft tissues: Unremarkable. IMPRESSION: 1. No acute fracture 2. Mottled lucency in the mid femoral diaphysis possibly sequela of old injury, surgery or stress reaction. Infectious or neoplastic etiology not excluded. Correlation with prior studies recommended if available. If there is pain referable to this area, consider further evaluation with CT or MRI.
--- NOTE | 2023-10-10 20:18 | XR_ITS ---
PROCEDURE INFORMATION: Exam: XR Right Femur Exam date and time: 10/10/2023 8:24 PM Age: 63 years old Clinical indication: Injury or trauma; Other: Fall with severe pain after; Additional info: Bilateral hip and knee pain after fall TECHNIQUE: Imaging protocol: Radiologic exam of the right femur. Views: 2 views. COMPARISON: CR XR FEMUR RT 2V 10/10/2023 8:24 PM FINDINGS: Bones/joints: Bones appear osteopenic. Osseous alignment is normal. No acute fracture. Degenerative changes noted in the right knee. Soft tissues: Unremarkable. IMPRESSION: No acute abnormality.
--- NOTE | 2023-10-10 20:18 | XR_ITS ---
PROCEDURE INFORMATION: Exam: XR Left Knee Exam date and time: 10/10/2023 8:24 PM Age: 63 years old Clinical indication: Injury or trauma; Other: Fall with severe pain after; Additional info: Severe left knee pain after fall TECHNIQUE: Imaging protocol: Radiologic exam of the left knee. Views: 3 views. COMPARISON: CR XR FEMUR LT 2V 10/10/2023 8:24 PM FINDINGS: Bones/joints: Bones are diffusely osteopenic. Osseous alignment is normal. No acute fracture. No significant joint fluid. Soft tissues: Normal. IMPRESSION: No acute abnormality
--- NOTE | 2023-10-10 20:21 | PC.NURSE ---
patient placed on cafeteria monitor
[2023-10-10 20:45] LABS: Basophils % 0.4 % (0.1-2.0); Eosinophils # 0.3 K/mm3 (0.0-0.4); Hematocrit 33.3 % (37.0-47.0); Hemoglobin 10.3 g/dL (12.2-16.2); Lymphocytes # 2.6 K/mm3 (0.7-4.5); Lymphocytes % 29.4 % (10-50); Mean Corpuscular Volume 93.3 fl (81-99); Mean Platelet Volume 9.7 fl (7.4-10.4); Monocytes # 0.7 K/mm3 (0.1-1.0); Monocytes % 8.5 % (1.7-9.3); Neutrophils # 5.1 K/mm3 (1.8-7.8); Neutrophils % 58.7 % (37.0-80.0); Platelet Count 276 K/mm3 (142-424); Red Blood Count 3.57 M/mm3 (4.20-5.40); Red Cell Distribution Width 18.8 % (11.5-17.5); White Blood Count 8.7 K/mm3 (4.8-10.8)
[2023-10-10 21:06] LABS: Alanine Aminotransferase 17 U/L (12-78); Albumin Level 3.6 g/dl (3.5-5.0); Albumin/Globulin Ratio 1.2 (1.1-1.8); Alkaline Phosphatase 64 U/L (38-126); Anion Gap 7.2 mEq/L (5-15); Aspartate Amino Transferase 37 U/L (14-36); Bilirubin,Total 0.4 mg/dl (0.2-1.3); Blood Urea Nitrogen 12 mg/dl (7-17); Carbon Dioxide 30 mmol/L (22.0-30.0); Chloride 102 mmol/L (98-107); Creatinine Clearance Estimated 49 mL/min (50-200); Estimated Glomerular Filt Rate 50 ml/min (>60); GFR (African American) 61 ML/MIN (>60); Globulin 2.9 g/dL (1.3-3.2); Glucose 85 mg/dl (74-100); Potassium 4.2 mmoL/L (3.5-5.1); Sodium 135 mmol/L (136-145); Total Protein,Serum 6.5 g/dl (6.3-8.2)
[2023-10-10 21:17] LABS: Erythrocyte Sedimentation Rate 51 mm/hr (0-30)
== END 2023-10-10 22:50 | disposition home or self-care (01) ==
PROVIDERS: Emergency Provider Emergency Medicine; PCP Family Medicine
DX: M25.562 Pain in left knee (principal); W19.XXXA Unspecified fall, initial encounter; M25.551 Pain in right hip; M06.9 Rheumatoid arthritis, unspecified
CPT/HCPCS: 73502; 73552; 73562; 80053; 85025; 85651; 86140; 93005; 96374; 96375; 99284; J0131; J1885; J2919

== ENCOUNTER 2023-10-11 16:09 | Outpatient (CLI) | payer OTHER, SELFPAY ==
[2023-10-11 16:53] LABS: C-Reactive Protein 29.2 mg/L (0-4)
[2023-10-13 21:40] LABS: QuantiFERON-TB Gold Plus Negative (Negative)
== END 2023-10-11 23:59 | disposition home or self-care (01) ==
LOC: LAB 16:11
PROVIDERS: PCP Family Medicine; Visit Provider Internal Medicine Pulmonary Disease
DX: R06.09 Other forms of dyspnea (principal); J18.9 Pneumonia, unspecified organism; Z72.0 Tobacco use
CPT/HCPCS: 36415; 86140; 86480

== ENCOUNTER 2023-10-19 20:22 | Observation (INO) | payer OTHER, SELFPAY ==
[2023-10-19] VITALS (7 sets, daily range): BP systolic 104–128; BP diastolic 74–90; PULSE 83–105; RESP 16; TEMP 36.6; O2SAT 92–100; BMI 28.4
--- NOTE | 2023-10-19 21:27 | XR_ITS ---
PROCEDURE INFORMATION: Exam: XR Chest Exam date and time: 10/19/2023 9:40 PM Age: 63 years old Clinical indication: Shortness of breath; Additional info: SOB TECHNIQUE: Imaging protocol: Radiologic exam of the chest. Views: 2 views. COMPARISON: CT ANGIO CHEST PE PROTOCOL 06/23/2023 2:39 PM FINDINGS: Lungs: No evidence of acute pulmonary disease or infiltrates Pleural spaces: No large effusion or pneumothorax. Heart/Mediastinum: Stable cardiac and mediastinal contours. Bones/joints: No evidence of acute osseous abnormalities within the visualized portions of the thoracic spine and ribs. Osseous structures appear appropriate for patient age. IMPRESSION: No dense parenchymal consolidation, pleural effusion, or pneumothorax.
--- NOTE | 2023-10-19 21:27 | CT_ITS ---
PROCEDURE INFORMATION: Exam: CT Abdomen And Pelvis With Contrast Exam date and time: 10/19/2023 10:10 PM Age: 63 years old Clinical indication: Abdominal pain; Additional info: Upper abd pain TECHNIQUE: Imaging protocol: Computed tomography of the abdomen and pelvis with contrast. Radiation optimization: All CT scans at this facility use at least one of these dose optimization techniques: automated exposure control; mA and/or kV adjustment per patient size (includes targeted exams where dose is matched to clinical indication); or iterative reconstruction. Contrast material: ISOVUE; Contrast volume: 75 ml; Contrast route: IV; COMPARISON: 1. CT ABDOMEN PELVIS W CON 06/23/2023 2:39 PM 2. CR XR HIP LT 2-3V W/PELVIS 10/10/2023 8:24 PM 3. CR XR HIP RT 2-3V W/PELVIS 10/10/2023 8:24 PM FINDINGS: Lungs: Scattered areas of bronchial wall thickening which are likely chronic inflammatory. A few areas of subpleural reticulation are noted, nonspecific. Liver: Normal. Gallbladder and biliary ducts: No acute process. Pancreas: Normal. Spleen: Normal. Adrenal glands: The adrenal glands appear normal. Kidneys and ureters: There are no soft tissue renal masses or hydronephrosis. Stomach and bowel: The patient is status post prior partial colectomy. Appendix: No evidence of appendicitis. Intraperitoneal space: Unremarkable. Vasculature: There is atherosclerotic disease of the visualized aorta and its major branch vessels. The aorta demonstrates significant tortuosity. Lymph nodes: No lymphadenopathy. Urinary bladder: Unremarkable as visualized. Reproductive: The patient has undergone prior hysterectomy. Bones/joints: There is a left hip arthroplasty with associated streak artifact mildly limits evaluation of the pelvis. There is a dextroscoliotic curvature of the spine. There is diffuse degenerative disease of the visualized osseous structures. Soft tissues: There are calcifications within the buttocks which most likely reflect injection granulomas. There are postsurgical changes of the ventral abdominal wall. There is a supraumbilical abdominal hernia containing nonobstructed loop of bowel. IMPRESSION: Supraumbilical abdominal wall hernia containing a nonobstructed loop bowel. No acute obstructive or inflammatory pathology is seen.
[2023-10-19 21:42] LABS: Basophils # 0.1 K/mm3 (0-0.2); Basophils % 0.6 % (0.1-2.0); Eosinophils # 0.1 K/mm3 (0.0-0.4); Eosinophils % 0.7 % (0.1-12.0); Hematocrit 47.9 % (37.0-47.0); Hemoglobin 15.3 g/dL (12.2-16.2); Lymphocytes # 3.2 K/mm3 (0.7-4.5); Lymphocytes % 22.1 % (10-50); Mean Corpuscular HGB Conc 31.9 g/dL (31.8-35.4); Mean Corpuscular Volume 91.1 fl (81-99); Mean Platelet Volume 9.9 fl (7.4-10.4); Monocytes # 0.9 K/mm3 (0.1-1.0); Monocytes % 6.1 % (1.7-9.3); Neutrophils # 10.1 K/mm3 (1.8-7.8); Neutrophils % 70.4 % (37.0-80.0); Platelet Count 466 K/mm3 (142-424); Red Blood Count 5.26 M/mm3 (4.20-5.40); Red Cell Distribution Width 18.7 % (11.5-17.5); White Blood Count 14.4 K/mm3 (4.8-10.8)
--- NOTE | 2023-10-19 21:42 | HMH.EDGENADL ---
Discharge Plan Disposition Patient Disposition: Admitted Condition: Fair Chief Complaint: Abdominal Pain Prescriptions Prescriptions: No Action albuterol sulfate 90 mcg/actuation HFA aerosol inhaler 2 puff IH Q4HP PRN (Reason: Wheezing) Qty: 6.7 1RF potassium chloride 20 MEQ tablet 20 meq PO BID methotrexate sodium 2.5 MG tablet 15 mg PO WEEKLY Rx Instructions: PATIENT TAKES ON MONDAYS folic acid 1 MG tablet 1 mg PO DAILY furosemide 20 MG tablet 20 mg PO DAILY hydroxychloroquine 200 MG tablet 200 mg PO DAILY escitalopram oxalate 20 MG tablet 20 mg PO DAILY adalimumab 40 MG/0.8 ML pen injector kit 40 mg SQ .[id number] Rx Instructions: PATIENT TAKES ON MONDAYS EVERY 2 WEEKS famotidine 40 MG tablet 40 mg PO DAILY prednisone 20 mg tablet 40 mg PO DAILY 5 Days Qty: 10 0RF atorvastatin 40 mg tablet 40 mg PO HS alendronate 70 mg tablet 70 mg PO WEEKLY Rx Instructions: PATIENT TAKES ON FRIDAYS prednisone 5 mg tablet 5 mg PO DAILYP PRN (Reason: ARTHRITIS FLARE) Rx Instructions: PATIENT STATES SHE ONLY TAKES THIS DAILY NEEDED FOR AN ARTHRITIS FLARE. clopidogrel 75 mg tablet 75 mg PO DAILY omeprazole 40 mg capsule,delayed release(DR/EC) 40 mg PO DAILY terbinafine HCl 250 mg tablet 250 mg PO DAILY gabapentin 800 mg tablet 800 mg PO BID lidocaine 5 % adhesive patch,medicated 1 patch topical DAILY diclofenac sodium 1 % gel 1 g TOPICAL HS Xarelto 2.5 mg tablet 2.5 mg PO BID Nurtec ODT 75 mg tablet,disintegrating 75 mg PO DAILYP PRN (Reason: Migraine Headache) albuterol sulfate 2.5 MG/NEB solution for nebulization 2.5 mg inhalation TIDP PRN (Reason: Wheezing) duloxetine 60 mg capsule,delayed release(DR/EC) 60 mg PO HS Trelegy Ellipta 100-62.5-25 mcg Blister With Device 1 inh inhalation DAILY 30 Days Qty: 28 0RF Referrals Follow up/Referrals: Patsy Hiar [Primary Care Provider] - See instructions Clinical Impressions Clinical Impression: JAMISON (acute kidney injury), Abdominal pain, Nausea & vomiting Instructions Patient Instructions: DI for Acute Abdominal Pain Print Language Print Language: Albanian Discharge ED Provider: Kalen Pablo Adult HPI General Chief complaint: Abdominal Pain Stated complaint: body aches, vomiting Time Seen by Provider: 10/19/23 20:35 Mode of Arrival: Wheelchair Source of Information: Patient Limitations: No Limitations Description of Symptoms (Recalled from ER Triage Doc. by RN): Pt presents with overall body aches, decreased appettite, abdominal pain, nausea and vomiting x 2 days. Pt denies any recent falls or injury to knees but states they are both hurting as well. History of Present Illness HPI narrative: 63-year-old female with past medical history significant for interstitial lung disease, OA, RA, COPD, on Xarelto after having a hip surgery, presents today for evaluation concerning generalized weakness, myalgias, shortness of breath over the past couple days. She also reports that she continues to have knee pain after her fall and negative x-rays on 10/09. She has been ambulatory however. She denies have any chest pain, fevers, chills, nausea, vomiting but does report upper abdominal pain associated with her hernia. Continues to tolerate oral intake. No further complaints Related Data Home Medications ?Medication ?Instructions ?Recorded ?Confirmed adalimumab 40 mg/0.8 mL 40 mg SQ .[id number] 07/16/21 10/11/23 subcutaneous pen kit escitalopram oxalate 20 mg tablet 20 mg PO DAILY 07/16/21 10/11/23 folic acid 1 mg tablet 1 mg PO DAILY 07/16/21 10/11/23 furosemide 20 mg tablet 20 mg PO DAILY 07/16/21 10/11/23 hydroxychloroquine 200 mg tablet 200 mg PO DAILY 07/16/21 10/11/23 methotrexate sodium 2.5 mg tablet 15 mg PO WEEKLY Arthritis 07/16/21 10/11/23 potassium chloride 20 mEq 20 meq PO BI
[2023-10-19 21:53] LABS: Lactic Acid 1.9 mmol/L (0.7-2.1)
[2023-10-19 21:55] LABS: Coronavirus 19, PCR Not Detected (NotDetected); Influenza A, PCR Not Detected (NotDetected); Influenza B, PCR Not Detected (NotDetected)
[2023-10-19 22:04] LABS: Alanine Aminotransferase 42 U/L (12-78); Albumin Level 4.8 g/dl (3.5-5.0); Albumin/Globulin Ratio 1.2 (1.1-1.8); Alkaline Phosphatase 60 U/L (38-126); Anion Gap 14.8 mEq/L (5-15); Aspartate Amino Transferase 56 U/L (14-36); Bilirubin,Total 1.2 mg/dl (0.2-1.3); Blood Urea Nitrogen 33 mg/dl (7-17); Calcium 9.3 mg/dl (8.4-10.2); Carbon Dioxide 26 mmol/L (22.0-30.0); Chloride 99 mmol/L (98-107); Creatinine Clearance Estimated 32 mL/min (50-200); Estimated Glomerular Filt Rate 31 ml/min (>60); GFR (African American) 37 ML/MIN (>60); Globulin 4.1 g/dL (1.3-3.2); Glucose 114 mg/dl (74-100); Lipase 124 U/L (23-300); Potassium 4.8 mmoL/L (3.5-5.1); Sodium 135 mmol/L (136-145); Total Protein,Serum 8.9 g/dl (6.3-8.2)
[2023-10-19 22:09] LABS: D-Dimer 0.52 ug/mL (0.0-0.5)
[2023-10-19 22:19] LABS: Troponin I < 0.01 ng/ml (0.00-0.034)
--- NOTE | 2023-10-19 22:20 | ECG_ITS ---
APPROVED REPORT Exam: Resting ECG HR:87 bpm ECG Measurements Heart Rate 87 AXES ID 146 P 62 QRSd 68 QRS 110 QT 352 T 75 QTc 397 Conclusion SINUS RHYTHM POSSIBLE RIGHT VENTRICULAR HYPERTROPHY [SOME/ALL OF: PROMINENT R IN V1, LATE TRANSITION, RAD, TOM, SSS] NONSPECIFIC T-WAVE ABNORMALITY ABNORMAL ECG UNCONFIRMED REPORT Electronically signed by : SUDHIR VENCES, 10/20/2023 00:31:36
[2023-10-19 22:30] LABS: Lactate Venous 2.4 mmol/L (0.4-2.0); VBG Base Excess -0.4 mmol/L (-2.4-2.3); VBG HCO3 25.2 mmol/L (23-30); VBG Oxygen Saturation 71.8 % (50-70); VBG PCO2 46.9 mmol/L (35-51); VBG PH 7.35 mmol/L (7.31-7.41); VBG PO2 42.2 mmol/L (28-40); VBG Total CO2 26.6 mmol/L (23-27)
[2023-10-20] VITALS (7 sets, daily range): BP systolic 92–112; BP diastolic 58–72; PULSE 69–101; RESP 16–18; TEMP 36.6–37.6; O2SAT 91–97; BMI 27.7
--- NOTE | 2023-10-20 00:43 | PC.NURSE ---
pt arrived to floor via wheelchair @00:42
[2023-10-20 00:50] LABS: Troponin I < 0.01 ng/ml (0.00-0.034)
[2023-10-20 01:45] LABS: Reflex Lactic Add Lactic Reflex
--- NOTE | 2023-10-20 02:50 | EXP.HP ---
History of Present Illness *Admission Date: 10/19/23 *Reason for visit:: Abdominal pain with vomiting, COPD, elevated white count *History of present illness: Patient long-term smoker a very similar episode on 06/23/2023 admitted for a day, tuned up and released. Patient continues to smoke daily, on on multiple medications for her RA [facility] Disclaimer: The information contained in this section may have been updated after the patient was seen, as this information can be updated by other users. Medical History Fibrosis of lung Smoking greater than 30 pack years Pulmonary emphysema ILD (interstitial lung disease) HSV-1 infection Urinary tract infection Pneumonia Urinary incontinence Osteoarthritis Rheumatoid arthritis History of back pain Surgical History History of hip replacement History of colonoscopy History of left hip replacement Family History Other Family history of COPD (chronic obstructive pulmonary disease) Family history of arthritis Family history of cancer Family history of diabetes mellitus type I Family history of hypertension Social History Smoking Status: Current every day smoker tobacco type: cigarettes packs per day: 1 alcohol intake: current alcohol intake frequency: holidays/special occasions only substance use type: denies use current occupational status: unemployed Travel in the last 8 weeks: None household members: spouse and children housing: apartment caffeine: Yes Review of Systems Review of Systems Review of systems:: pertinent systems reviewed and negative unless documented below Review of systems (narrative): Patient comes in mainly for abdominal pain with some vomiting for her not particularly short of breath but some Constitutional Constitutional: Reports anorexia and Reports body ache(s) Eyes Eyes: Reports system reviewed and no additional complaints, except as documented ENT Ears, Nose, Mouth, and Throat: Reports system reviewed and no additional complaints, except as documented *Cardiovascular Cardiovascular: Reports system reviewed and no additional complaints, except as documented, Reports dyspnea and Reports dyspnea on exertion *Respiratory Respiratory: Reports as per HPI, Reports dyspnea and Reports dyspnea on exertion *Gastrointestinal Gastrointestinal: Reports abdominal pain and Reports bloating *Genitourinary Genitourinary: Reports system reviewed and no additional complaints, except as documented *Musculoskeletal Musculoskeletal: Reports atrophy, Reports myalgias and Reports stiffness Integumentary/Breasts Skin/Breast: Reports system reviewed and no additional complaints, except as documented *Neurologic Neurologic: Reports system reviewed and no additional complaints, except as documented Psychiatric Psychiatric: Reports system reviewed and no additional complaints, except as documented Endocrine Endocrine: Reports system reviewed and no additional complaints, except as documented Hematologic/Lymphatic Hematologic/Lymphatic: Reports system reviewed and no additional complaints, except as documented Allergic/Immunologic Allergic/Immunologic: Reports system reviewed and no additional complaints, except as documented Meds Home Medications and Allergies Home Medications ?Medication ?Instructions ?Recorded ?Confirmed ?Type adalimumab 40 mg/0.8 mL 40 mg SQ WEEKLY 07/16/21 10/20/23 History subcutaneous pen kit (Humira Pen) escitalopram oxalate 20 mg tablet 20 mg PO DAILY 07/16/21 10/20/23 History folic acid 1 mg tablet 1 mg PO DAILY 07/16/21 10/20/23 History furosemide 20 mg tablet 20 mg PO DAILY 07/16/21 10/20/23 History hydroxychloroquine 200 mg tablet 200 mg PO DAILY 07/16/21 10/20/23 History methotrexate sodium 2.5 mg tablet 15 mg PO WEEKLY Arthritis 0
[2023-10-20 03:14] LABS: Lactic Acid Follow Up (RFLX 1) 1.8 mmol/L (0.7-2.1)
[2023-10-20 03:27] LABS: Troponin I < 0.01 ng/ml (0.00-0.034)
--- NOTE | 2023-10-20 05:08 | PC.NURSE ---
Pt has remained alert and oriented most of the shift but did have a couple episodes of confusion throughout the night. He has remained on room air with O2 sats greater than 90%. Lung sounds clear and bowel sounds active in all quadrants. Pt has had around seven large bm throughout the shift. He states he feels much better after. He has complained of back pain a couple times this shift and was treated per the MAR. No complaints at this time, call light within reach.
--- NOTE | 2023-10-20 05:35 | PC.NURSE ---
Pt is A&OX4 and has tolerated room air. Expiratory wheezing heard in lungs and bowel sounds active in all quadrants. Pt has ambulated to the restroom with x1 assist. She has complained of leg pain and was treated per APR. No other complaints at this time, call light within reach.
[2023-10-20 05:54] LABS: Basophils # 0.1 K/mm3 (0-0.2); Basophils % 0.5 % (0.1-2.0); Eosinophils # 0.1 K/mm3 (0.0-0.4); Eosinophils % 1.1 % (0.1-12.0); Hematocrit 38.9 % (37.0-47.0); Lymphocytes # 1.8 K/mm3 (0.7-4.5); Lymphocytes % 17.6 % (10-50); Mean Corpuscular HGB Conc 31.1 g/dL (31.8-35.4); Mean Corpuscular Hemoglobin 28.7 pg (27.0-31.2); Mean Corpuscular Volume 92.3 fl (81-99); Mean Platelet Volume 9.5 fl (7.4-10.4); Monocytes # 0.6 K/mm3 (0.1-1.0); Monocytes % 6.3 % (1.7-9.3); Neutrophils # 7.6 K/mm3 (1.8-7.8); Neutrophils % 74.5 % (37.0-80.0); Platelet Count 307 K/mm3 (142-424); Red Blood Count 4.22 M/mm3 (4.20-5.40); Red Cell Distribution Width 18.8 % (11.5-17.5); White Blood Count 10.2 K/mm3 (4.8-10.8)
[2023-10-20 06:16] LABS: Lactic Acid 1.9 mmol/L (0.7-2.1)
[2023-10-20 06:17] LABS: Alanine Aminotransferase 32 U/L (12-78); Albumin Level 3.5 g/dl (3.5-5.0); Albumin/Globulin Ratio 1.3 (1.1-1.8); Alkaline Phosphatase 51 U/L (38-126); Anion Gap 9.8 mEq/L (5-15); Aspartate Amino Transferase 30 U/L (14-36); Bilirubin,Total 0.3 mg/dl (0.2-1.3); Blood Urea Nitrogen 32 mg/dl (7-17); Carbon Dioxide 27 mmol/L (22.0-30.0); Chloride 100 mmol/L (98-107); Estimated Glomerular Filt Rate 31 ml/min (>60); GFR (African American) 37 ML/MIN (>60); Globulin 2.8 g/dL (1.3-3.2); Glucose 138 mg/dl (74-100); Magnesium 2.1 mg/dl (1.6-2.3); Potassium 3.8 mmoL/L (3.5-5.1); Sodium 133 mmol/L (136-145); Total Protein,Serum 6.3 g/dl (6.3-8.2)
[2023-10-20 06:23] LABS: Creatinine Clearance Estimated 31 mL/min (50-200)
--- NOTE | 2023-10-20 09:13 | HMH.PHAINT1 ---
Pharmacy Intervention Comments: HOME MEDICATION LIST VERIFIED USING LIST FROM OUTPATIENT PHARMACY
[2023-10-20 09:23] LABS: Hemoglobin 12.1 g/dL (12.2-16.2)
--- NOTE | 2023-10-20 13:32 | HMH.PTEV ---
Physical Therapy Evaluation Rehab PT IP Evaluation Start: 10/20/23 11:35 Freq: ONCE Status: Active Protocol: Document 10/20/23 13:28 LUDIN (Rec: 10/20/23 13:31 LUDIN [id number]) Subjective/History History History Per H&P: Patient long-term smoker a very similar episode on 06/23/2023 admitted for a day, tuned up and released. Patient continues to smoke daily, on on multiple medications for her RA Subjective Subjective Pt lives at home with her in a single story home with 4 DUSTIN. Pt used a cane for Mod IND ambulation and was IND with mobility. Pt was driving prior. Pt has a daughter who can stay and help as needed. Pt owns a RW. New diagnosis of cancer in past 12 No months? Rehab PT IP Eval Objective Appearance Patient Behavior Appropriate,Cooperative Patient Orientation Person,Place Difficulty following instructions none Speech Pattern Clear Ambulation Patient Able to Ambulate Yes Ambulation Observation IP General Gait Pattern Observation Antalgic Gait Ambulation Distance (feet) 25 Ambulation Assistive Device None Ambulation Ability Contact Guard/Hand Hold Balance Ability to Arise Able, uses arms to help Sitting Balance Steady, safe Standing Balance Steady, wide stance Transfers Bed Transfer Ability Supervision/Stand by Sit to Stand Bed Transfer Ability Supervision/Stand by Rehab PT IP prob,goals,plan Problems Date of Evaluation: 10/20/23 PT IP Problems Bed Mobility,Transfers,Gait, Balance Rehab Potential Rehab Potential Good Equipment Needs Assistive Devices Rolling / Wheeled Walker Plan PT Intervention Plan Bed Mobility,Transfers,Balance ,Therapeutic Exercise Other Intervention Plan 1-2 times PT Plan Frequency Daily Duration LOS Discharge Goals Bed Transfer Ability Independent Sit to Stand Chair Transfer Ability Independent Ambulation Assistive Device Rolling Walker Ambulation Distance (feet) 30 Discharge Plan PT Discharge Plan Initial physical therapy evaluation performed. Patient presents below baseline at
--- NOTE | 2023-10-20 13:43 | HMH.OTEV ---
OT Inpatient Evaluation Rehab OT IP Evaluation Start: 10/20/23 11:35 Freq: ONCE Status: Active Protocol: Document 10/20/23 13:36 THEODORA (Rec[facility] 10/20/23 13[facility]43 [id number] Re[facility] OT IP Assessment Subjective History Pt oriented x3 on arrival. Pt agreeable to engage in therapy evaluation. Pt admitted on 10/19/23 due to JAMISON. History and physical report: Patient long-term smoker a very similar episode on 2023 admitted for a day, tuned up and released. Patient continues to smoke daily, on on multiple medications for her RA Subjective I think I am doing better. Prior to being in the hospital , pt lived at home with her . Pt claims normally she is independent with all ADLs and IADLS. She does use a cane at times during functional transfers. Pt also still drives. She has 4 steps to enter home, but lives in a single floor home. Pt reports having difficulty with transfers within the past few weeks. Pt does have a rolling walker at home. Pt's friend present and reports she plans to stay with patient upon her returning home to provide assistance as needed. Objective Patient Orientation Person,Place,Name Right Upper Extremity Gross ROM WFL Left Upper Extremity Gross ROM WFL Transfer Training Sit/Stand Transfer Assist Level Supervision/Stand by Rehab OT IP prob,goals,plan Problems Date of Evaluation: 10/20/23 OT IP Problems Bed Mobility,Transfers,Balance ,Self care,Safety Rehab Potential Rehab Potential Good Equipment Needs Assistive Devices Rolling / Wheeled Walker Plan OT intervention Plan Bed Mobility,Transfers,Balance ,Self care,Safety,Therapeutic Exercise OT Plan Frequency Daily Duration LOS Discharge Goals Bed Mobility Ability Standby Assist
--- NOTE | 2023-10-20 18:39 | EXP.ACUTE.PN ---
Subjective *Date: 10/20/23 *Time: 18:46 Interval history: Patient complains of shortness of breath, weakness for approximately 1 week prior to admission. Admits to history of COPD. States her rheumatoid arthritis is treated by manager science with methotrexate, folic acid, and Humira. Reports issues with bilateral knee pain for several months worse in the morning. Patient did complain of some abdominal discomfort during interview with Dr. Manjarrez today. Medical Exam Vital signs and Labs for Last 24 Hours: Vital Signs Temp Pulse Pulse Resp BP BP Pulse Ox 10/20/23 16:00 98.8 F 92 H 18 106/60 L 94 L 10/20/23 08:00 98 F 91 H 18 102/58 L 94 L 10/20/23 06:46 10/20/23 05:00 10/20/23 04:00 99.6 F 96 H 18 92/61 L 95 10/20/23 03:00 10/20/23 01:34 10/20/23 01:00 10/20/23 00:42 98 F 69 16 112/72 10/19/23 23:30 84 122/80 95 10/19/23 23:00 83 122/81 100 10/19/23 23:00 84 10/19/23 22:47 87 10/19/23 22:30 86 115/74 92 L 10/19/23 22:25 89 104/83 L 96 10/19/23 21:30 103 H 128/83 94 L 10/19/23 20:23 97.8 F 105 H 16 124/90 94 L O2 Del Method 10/20/23 16:00 Room Air 10/20/23 08:00 Room Air 10/20/23 06:46 Room Air 10/20/23 05:00 Room Air 10/20/23 04:00 Room Air 10/20/23 03:00 Room Air 10/20/23 01:34 Room Air 10/20/23 01:00 Room Air 10/20/23 00:42 Room Air 10/19/23 23:30 10/19/23 23:00 10/19/23 23:00 10/19/23 22:47 10/19/23 22:30 10/19/23 22:25 10/19/23 21:30 10/19/23 20:23 Room Air Intake and Output 09/08/0610/20/23 10/20/23 07:59 15:59 23:59 Intake Total 460 / 460 0 / 460 Output Total 200 / 200 0 / 200 0 / 200 Balance -200 / 260 460 / 260 0 / 260 Intake: Intake, Oral Amount 460 / 460 0 / 460 Output: Output, Urine Amount 200 / 200 0 / 200 0 / 200 Other: Weight 55.973 kg Patient Weight 10/20/23 23:59 Weight 55.973 kg Laboratory Results - last 24 hr 10/19/23 20:36: WBC 14.4 H, RBC 5.26, Hgb 15.3, Hct 47.9 H, MCV 91.1, MCH 29.0, MCHC 31.9, RDW 18.7 H, Plt Count 466 H, MPV 9.9, Neut % (Auto) 70.4, Lymph % (Auto) 22.1, [place] % (Auto) 6.1, Eos % (Auto) 0.7, Baso % (Auto) 0.6, Neut # (Auto) 10.1 H, Lymph # (Auto) 3.2, [place] # (Auto) 0.9, Eos # (Auto) 0.1, Baso # (Auto) 0.1, D-Dimer 0.52 H, Sodium 135 L, Potassium 4.8, Chloride 99, Carbon Dioxide 26, Anion Gap 14.8, BUN 33 H, Creatinine 1.70 H, Estimated Creat Clear 32, Estimated GFR 31 L, Est GFR ( Amer) 37 L, Glucose 114 H, Lactate 1.9, Calcium 9.3, Total Bilirubin 1.2, AST 56 H, ALT 42, Alkaline Phosphatase 60, Troponin I < 0.01, Total Protein 8.9 H D, Albumin 4.8, Globulin 4.1 H, Albumin/Globulin Ratio 1.2, Lipase 124 10/19/23 20:40: SARS-CoV-2 (PCR) Not detected, Influenza A Untype (PCR) Not detected, Influenza Type B (PCR) Not detected 10/19/23 21:27: VBG pH 7.35, VBG pCO2 46.9, VBG pO2 42.2 H, VBG HCO3 25.2, VBG Total CO2 26.6, VBG O2 Saturation 71.8 H, VBG Base Excess -0.4, VBG Lactic Acid 2.4 H 10/20/23 00:20: Troponin I < 0.01 10/20/23 02:40: Lactate 1.8, Troponin I < 0.01 10/20/23 05:31: WBC 10.2 D, RBC 4.22, Hgb 12.1 L D, Hct 38.9, MCV 92.3, MCH 28.7, MCHC 31.1 L, RDW 18.8 H, Plt Count 307 D, MPV 9.5, Neut % (Auto) 74.5, Lymph % (Auto) 17.6, [place] % (Auto) 6.3, Eos % (Auto) 1.1, Baso % (Auto) 0.5, Neut # (Auto) 7.6, Lymph # (Auto) 1.8, [place] # (Auto) 0.6, Eos # (Auto) 0.1, Baso # (Auto) 0.1, Sodium 133 L, Potassium 3.8 D, Chloride 100, Carbon Dioxide 27, Anion Gap 9.8, BUN 32 H, Creatinine 1.70 H, Estimated Creat Clear 31, Estimated GFR 31 L, Est GFR ( Amer) 37 L, Glucose 138 H D, Lactate 1.9, Calcium 8.0 L, Magnesium 2.1, Total Bilirubin 0.3, AST 30 D, ALT 32, Alkaline Phosphatase 51, Total Protein 6.3 D, Albumin 3.5 D, Globulin 2.8, Albumin/Globulin Ratio 1.3 I & O for Labs for Last 24 Hours: Intake & Output 10/17/23 10/18/23 10/19/23 10/20/23 23:59 23:59 23:59 23:59 Intake Tot
[2023-10-21] VITALS (8 sets, daily range): BP systolic 103–139; BP diastolic 58–78; PULSE 87–109; RESP 16–18; TEMP 36.6–37.2; O2SAT 91–97; BMI 27.7
--- NOTE | 2023-10-21 00:15 | PC.NURSE ---
Addendum entered by Jenna Johnston RN 10/21/23 00:20: cb within reach, no needs at this time Original Note: pt is pleasant, cooperative and doing well so far this shift, only complaints is generalized pain, treated per mar. pts son and his friends are at bs being loud at times. this nurse asked the visitors to lower voices, pt agreed. shut the room door.
--- NOTE | 2023-10-21 05:43 | PC.NURSE ---
Care taken over from ESTHER Crawford at 0100. pt has been asleep most of the shift. she is a&ox4 and has been ambulating to the bathroom independently this shift. she has not complained of any pain. pt informed of need for stool sample. no bm has been had yet this am. call light within reach, bed in low and locked position.
[2023-10-21 07:42] LABS: Basophils % 0.1 % (0.1-2.0); Eosinophils % 0.2 % (0.1-12.0); Hematocrit 34.9 % (37.0-47.0); Hemoglobin 10.5 g/dL (12.2-16.2); Lymphocytes # 0.7 K/mm3 (0.7-4.5); Lymphocytes % 8.9 % (10-50); Mean Corpuscular Hemoglobin 28.1 pg (27.0-31.2); Mean Corpuscular Volume 93.6 fl (81-99); Mean Platelet Volume 9.7 fl (7.4-10.4); Monocytes # 0.2 K/mm3 (0.1-1.0); Monocytes % 2.3 % (1.7-9.3); Neutrophils # 6.5 K/mm3 (1.8-7.8); Neutrophils % 88.5 % (37.0-80.0); Platelet Count 236 K/mm3 (142-424); Red Blood Count 3.73 M/mm3 (4.20-5.40); Red Cell Distribution Width 18.7 % (11.5-17.5); White Blood Count 7.4 K/mm3 (4.8-10.8)
[2023-10-21 07:44] LABS: MANUAL DIFFERENTIAL MANUAL DIFFERENTIAL (MANUAL DIFF)
[2023-10-21 07:48] LABS: Anion Gap 8.5 mEq/L (5-15); Blood Urea Nitrogen 28 mg/dl (7-17); Calcium 8.8 mg/dl (8.4-10.2); Carbon Dioxide 26 mmol/L (22.0-30.0); Chloride 108 mmol/L (98-107); Creatinine Clearance Estimated 37 mL/min (50-200); Estimated Glomerular Filt Rate 38 ml/min (>60); GFR (African American) 46 ML/MIN (>60); Glucose 174 mg/dl (74-100); Potassium 4.5 mmoL/L (3.5-5.1); Sodium 138 mmol/L (136-145)
[2023-10-21 08:28] LABS: Lymphocytes % 5 % (10-50); Monocytes % 1 % (2-9); Neutrophils % 94 % (42-76); Platelet Estimate Normal; RBC Morphology Normal; Total Cells Counted 100
--- NOTE | 2023-10-21 15:13 | PC.NURSE ---
pt has had no complaints this shift. pt ambulated w/ standby assistance in hallway. pt has remained a&ox4 this shift. pt has also remained on room air. no new orders at this time. call light within reach.
--- NOTE | 2023-10-21 16:19 | EXP.PN ---
Subjective *Date: 10/21/23 *Time: 16:19 Interval history: The patient is seen and examined at bedside today. I am accompanied by her nurse and the patient is accompanied by her friend. She reports that she is breathing better and has no GI symptomatology. Nursing staff report that she remains afebrile and saturating appropriately on room air. She was able to walk up and down the hallway with physical therapy. Her labs identified improved leukocytoses and downward trending creatinine to 1.4 with a baseline of 0.7. Exam Data for Last 24 hours Vital signs and Labs for Last 24 Hours: Temp Pulse Resp BP Pulse Ox O2 Del Method 98.7 F 108 H 16 103/69 L 91 L Room Air 10/21/23 08:00 10/21/23 11:14 10/21/23 08:00 10/21/23 08:00 10/21/23 11:14 10/21/23 14:57 Laboratory Results - last 24 hr 10/20/23 19:05: Procalcitonin 0.070 10/21/23 06:00: WBC 7.4 D, RBC 3.73 L, Hgb 10.5 L, Hct 34.9 L, MCV 93.6, MCH 28.1, MCHC 30.0 L, RDW 18.7 H, Plt Count 236, MPV 9.7, Neut % (Auto) 88.5 H, Lymph % (Auto) 8.9 L, [place] % (Auto) 2.3, Eos % (Auto) 0.2, Baso % (Auto) 0.1, Neut # (Auto) 6.5, Lymph # (Auto) 0.7, [place] # (Auto) 0.2, Eos # (Auto) 0.0, Baso # (Auto) 0.0, Total Counted 100, Neutrophils % (Manual) 94 H, Lymphocytes % (Manual) 5 L, Monocytes % (Manual) 1 L, Platelet Estimate Normal, RBC Morphology Normal, Sodium 138, Potassium 4.5, Chloride 108 H, Carbon Dioxide 26, Anion Gap 8.5, BUN 28 H, Creatinine 1.40 H, Estimated Creat Clear 37, Estimated GFR 38 L, Est GFR ( Amer) 46 L D, Glucose 174 H, Calcium 8.8, Magnesium 2.0 10/21/23 06:25: Procalcitonin 0.060 I & O for Last 24 hours: Intake & Output 10/18/23 10/19/23 10/20/23 10/21/23 23:59 23:59 23:59 23:59 Intake Total 920 / 920 1320 / 1320 Output Total 200 / 200 Balance 720 / 720 1320 / 1320 Weight 57.606 kg 55.973 kg 55.973 kg Constitutional Constitutional: no acute distress and cooperative *Routine HEENT Exam Head: Present normocephalic and atraumatic Eye: Present EOMI and PERRL ENT: Present mucous membranes moist *Routine Neck Exam Neck: Absent JVD *Routine Respiratory Exam Respiratory: Present rhonchi, wheezes, normal respiratory effort and symmetric chest movement; Absent respiratory distress *Routine Cardiovascular Exam Cardiovascular: Present RRR *Routine Abdominal Exam Abdominal: Present soft and normoactive bowel sounds; Absent tenderness *Routine Extremities Exam Extremities: Absent edema *Routine Skin Exam Skin: Absent rash *Routine Neurological Exam Neurological: Present alert, oriented X3, vision grossly intact, hearing grossly intact and normal speech; Absent sensory deficit or motor deficit Routine Psychiatric Exam Psychiatric: Present normal affect, cooperative and good insight Assessment and Plan *Assessment and plan (1) JAMISON (acute kidney injury): Status: Acute Category: Medical Code(s): N17.9 - Acute kidney failure, unspecified (2) Acute exacerbation of chronic obstructive pulmonary disease: Status: Acute Category: Medical Code(s): J44.1 - Chronic obstructive pulmonary disease with (acute) exacerbation (3) Tobacco dependence in remission: Status: Acute Category: Medical Code(s): F17.201 - Nicotine dependence, unspecified, in remission Plan 63-year-old female with recent hip surgery and rheumatoid arthritis medications. Acute kidney injury was identified. Problems addressed as follows: Acute kidney injury Baseline creatinine 0.7 Recent surgical procedure Home medications reviewed IV fluid resuscitation Trending electrolytes and creatinine with improvement noted Acute exacerbation of COPD Pulmonary fibrosis Tobacco dependence in remission Pulse oximetry monitoring Oxygen therapy to maintain appropriate oxygen saturations Now oxygenating appropriately on room air Appropriate saturations with ambulation CT chest imaging with emphysema Soumya/Zohaib inhalation therapy Steroid
[2023-10-22 04:00] VITALS: BP 121/77; PULSE 86; RESP 16; TEMP 36.6; O2SAT 95; BMI 30.4
--- NOTE | 2023-10-22 04:34 | PC.NURSE ---
63 yo fe, A/O x 4. She is able to ambulate to BR and reports feeling better . Pt was medicated with pain meds early in shift due to reports of left upper quad abd pain and pain to her knee. Pain meds effective and pt was able to rest through the night. VS WNL for pt. 02 sats maintained above 90s on RA.
[2023-10-22 06:49] VITALS: PULSE 86; PULSE 99; O2SAT 93
[2023-10-22 07:54] LABS: Basophils # 0.1 K/mm3 (0-0.2); Basophils % 0.3 % (0.1-2.0); Eosinophils % 0.2 % (0.1-12.0); Hematocrit 32.7 % (37.0-47.0); Hemoglobin 9.9 g/dL (12.2-16.2); Lymphocytes # 2.1 K/mm3 (0.7-4.5); Lymphocytes % 12.8 % (10-50); Mean Corpuscular HGB Conc 30.3 g/dL (31.8-35.4); Mean Corpuscular Hemoglobin 28.4 pg (27.0-31.2); Mean Corpuscular Volume 93.6 fl (81-99); Mean Platelet Volume 9.9 fl (7.4-10.4); Monocytes # 0.7 K/mm3 (0.1-1.0); Monocytes % 4.3 % (1.7-9.3); Neutrophils # 13.4 K/mm3 (1.8-7.8); Neutrophils % 82.4 % (37.0-80.0); Platelet Count 235 K/mm3 (142-424); Red Blood Count 3.49 M/mm3 (4.20-5.40); Red Cell Distribution Width 19.1 % (11.5-17.5); White Blood Count 16.3 K/mm3 (4.8-10.8)
[2023-10-22 08:01] LABS: MANUAL DIFFERENTIAL MANUAL DIFFERENTIAL (MANUAL DIFF)
[2023-10-22 08:04] LABS: Anion Gap 4.2 mEq/L (5-15); Blood Urea Nitrogen 25 mg/dl (7-17); Calcium 8.9 mg/dl (8.4-10.2); Carbon Dioxide 30 mmol/L (22.0-30.0); Chloride 109 mmol/L (98-107); Creatinine Clearance Estimated 44 mL/min (50-200); Estimated Glomerular Filt Rate 42 ml/min (>60); GFR (African American) 50 ML/MIN (>60); Glucose 89 mg/dl (74-100); Potassium 4.2 mmoL/L (3.5-5.1); Sodium 139 mmol/L (136-145)
[2023-10-22 08:14] VITALS: BP 122/69; PULSE 89; RESP 15; TEMP 36.4; O2SAT 93
[2023-10-22 08:28] LABS: Lymphocytes % 12 % (10-50); Monocytes % 5 % (2-9); Neutrophils % 83 % (42-76); Platelet Estimate Normal; RBC Morphology Normal; Total Cells Counted 100
[2023-10-22 08:46] LABS: Procalcitonin 0.064 ng/mL (0.0-2.0)
[2023-10-22 11:24] VITALS: PULSE 102; PULSE 99; O2SAT 91
--- NOTE | 2023-10-22 11:34 | EXP.DC.SUM ---
General Admission date:: 10/20/23 Discharge date: 10/22/23 HPI HPI HPI: 63-year-old female with past medical history significant for rheumatoid arthritis on multiple immunosuppressive therapies, interstitial lung disease, OA, COPD, on Xarelto after having a hip surgery, presents today for evaluation concerning generalized weakness, myalgias, shortness of breath over the past couple days. She also reports that she continues to have knee pain after her fall and negative x-rays on 10/09. She has been ambulatory however. She denies have any chest pain, fevers, chills, nausea, vomiting but does report upper abdominal pain associated with her hernia. Continues to tolerate oral intake. Labs identified JAMISON. Hospital Course Hospital Course Hospital Course: The patient was admitted to the telemetry unit. Imaging, labs and inflammatory markers were assessed and trended. She was provided IV fluid resuscitation with improving creatinine down to 1.3 with baseline 0.9. She continued on supplemental oxygen and inhalation therapy for chronic pulmonary disease. She was maintained on anticoagulation therapy for her recent orthopedic procedure. The patient identified improvement and interacted with ancillary staff. She requested to be discharged home to follow-up with her primary care provider and middleware administrator. She understands the importance of follow-up renal profile with PCP follow-up. We have recommended that she discuss her medications with her outpatient care team and recent renal function changes. I spent 35 minutes in [id number] time with the patient and nursing staff ([facility]) concerning the discharge process. We discussed the admitting diagnoses and hospital course. We discussed identified improvement and the patient's desire to be discharged. We reviewed inpatient studies and imaging. The patient voiced understanding on the importance of follow-up with her primary care provider and middleware administrator. The patient plans to be compliant with the medication regimen prescribed and follow-up appointments. She understands that she can return to the emergency department with any sudden changes or concerns. Exam Data for Last 24 hours Vital signs and Labs for Last 24 Hours: Temp Pulse Resp BP Pulse Ox O2 Del Method 97.5 F L 102 H 15 122/69 91 L Room Air 10/22/23 08:14 10/22/23 11:24 10/22/23 08:14 10/22/23 08:14 10/22/23 11:24 10/22/23 11:24 Laboratory Results - last 24 hr 10/22/23 07:15: WBC 16.3 H D, RBC 3.49 L, Hgb 9.9 L, Hct 32.7 L, MCV 93.6, MCH 28.4, MCHC 30.3 L, RDW 19.1 H, Plt Count 235, MPV 9.9, Neut % (Auto) 82.4 H, Lymph % (Auto) 12.8, [place] % (Auto) 4.3, Eos % (Auto) 0.2, Baso % (Auto) 0.3, Neut # (Auto) 13.4 H, Lymph # (Auto) 2.1, [place] # (Auto) 0.7, Eos # (Auto) 0.0, Baso # (Auto) 0.1, Total Counted 100, Neutrophils % (Manual) 83 H, Lymphocytes % (Manual) 12, Monocytes % (Manual) 5, Platelet Estimate Normal, RBC Morphology Normal, Sodium 139, Potassium 4.2, Chloride 109 H, Carbon Dioxide 30, Anion Gap 4.2 L, BUN 25 H, Creatinine 1.30 H, Estimated Creat Clear 44, Estimated GFR 42 L, Est GFR ( Amer) 50 L, Glucose 89, Calcium 8.9, Magnesium 2.0, Procalcitonin 0.064 I & O for Last 24 hours: Intake & Output 10/19/23 10/20/23 10/21/23 10/22/23 23:59 23:59 23:59 23:59 Intake Total 920 / 920 1860 / 2360 1220 / 1220 Output Total 200 / 200 0 / 0 Balance 720 / 720 1860 / 2360 1220 / 1220 Weight 57.606 kg 55.973 kg 55.973 kg 61.507 kg Microbiology Reports for the Last 24 Hours: Microbiology 10/20/23 19:20 Blood Blood Culture - Preliminary NO GROWTH AFTER 24 HOURS 10/20/23 19:25 Blood Blood Culture - Preliminary NO GROWTH AFTER 24 HOURS Constitutional Constitutional: no acute distress and cooperative *Routine HEENT Exam Head: Present normocephalic and atraumatic Eye: Present EOMI and PERRL ENT: Present mucous membranes moist *Routine
--- NOTE | 2023-10-24 13:32 | CARE MANAGER ---
Called and spoke with patient regarding recent discharge. She stated that she plans to call and schedule a f/u appt with PCP today. She voiced no concerns at time of call.
== END 2023-10-22 12:23 | disposition home or self-care (01) ==
LOC: ER 10-20 00:03 → 2ND 10-20 00:10
PROVIDERS: Nurse Practitioner Family; Admitting Provider Internal Medicine; Emergency Provider Emergency Medicine; PCP Family Medicine; Visit Provider Internal Medicine
DX: J44.1 Chronic obstructive pulmonary disease with (acute) exacerbation (principal); N17.9 Acute kidney failure, unspecified; R06.02 Shortness of breath; R11.2 Nausea with vomiting, unspecified; R10.10 Upper abdominal pain, unspecified; K43.9 Ventral hernia without obstruction or gangrene; D72.829 Elevated white blood cell count, unspecified; J43.9 Emphysema, unspecified; F17.210 Nicotine dependence, cigarettes, uncomplicated; M06.9 Rheumatoid arthritis, unspecified; M41.9 Scoliosis, unspecified; Z79.899 Other long term (current) drug therapy; Z79.620 Long term (current) use of immunosuppressive biologic
CPT/HCPCS: 36415; 71046; 74177; 80048; 80053; 82803; 83605; 83690; 83735; 84145; 84484; 85007; 85025; 85378; 87040; 87636; 93005; 94640; 97116; 97162; 97166; 99285; G0378; J0696; J2270; J2405; J2919; J7030; J7120; J7620; Q9967

== ENCOUNTER 2023-11-23 17:40 | Observation (INO) | payer MEDICARE, OTHER, SELFPAY ==
[2023-11-23] VITALS (10 sets, daily range): BP systolic 110–153; BP diastolic 59–99; PULSE 80–102; RESP 14–20; TEMP 36.7–36.9; O2SAT 95–97; BMI 28.7
--- NOTE | 2023-11-23 17:42 | ED_ITS ---
Discharge Plan Disposition Patient Disposition: Admitted Condition: Good Clinical Impressions Clinical Impression: Acute colitis, Immunosuppressed status, Hypokalemia Urinary tract infection Qualifiers: Urinary tract infection type: site unspecified Hematuria presence: with hematuria Qualified Code(s): N39.0 - Urinary tract infection, site not specified Discharge ED Provider: Gilmer Sahu General Adult HPI <LA Cox - Last Filed: 11/23/23 21:35> General Chief complaint: Nausea/Vomiting/Diarrhea Stated complaint: diarrhea Time Seen by Provider: 11/23/23 17:42 History of Present Illness HPI narrative: Patient presents for 3 days of nausea vomiting and diarrhea. Patient states that she has had nausea vomiting and diarrhea with any oral intake. She denies fever chills hemoptysis hematochezia melena hematemesis hematuria dysuria or abdominal pain. Patient does have rheumatoid arthritis and is chronically immunosuppressed with Biologics that she takes for rheumatoid arthritis. Patient also reports she has a known umbilical hernia however she is having no abdominal pain and is passing flatus easily Related Data Home Medications ?Medication ?Instructions ?Recorded ?Confirmed adalimumab 40 mg/0.8 mL 40 mg SQ WEEKLY 07/16/21 11/23/23 subcutaneous pen kit (Humira Pen) escitalopram oxalate 20 mg tablet 20 mg PO DAILY 07/16/21 11/23/23 folic acid 1 mg tablet 1 mg PO DAILY 07/16/21 11/23/23 furosemide 20 mg tablet 20 mg PO DAILY 07/16/21 11/23/23 hydroxychloroquine 200 mg tablet 200 mg PO DAILY 07/16/21 11/23/23 potassium chloride 20 mEq 20 meq PO DAILY 07/16/21 11/23/23 tablet,extended release(part/cryst) famotidine 40 mg tablet 40 mg PO DAILY 07/17/21 11/23/23 albuterol sulfate 2.5 mg/3 mL 2.5 mg inhalation TIDP PRN Wheezing 06/24/23 11/23/23 (0.083 %) solution for nebulization alendronate 70 mg tablet 70 mg PO WEEKLY 06/24/23 11/23/23 atorvastatin 40 mg tablet 40 mg PO HS 06/24/23 11/23/23 clopidogrel 75 mg tablet 75 mg PO DAILY 06/24/23 11/23/23 duloxetine 60 mg capsule,delayed 60 mg PO BID 06/24/23 11/23/23 release gabapentin 800 mg tablet 800 mg PO BID 06/24/23 11/23/23 omeprazole 40 mg capsule,delayed 40 mg PO DAILY 06/24/23 11/23/23 release prednisone 5 mg tablet 5 mg PO DAILYP PRN ARTHRITIS 06/24/23 11/23/23 FLAREUP rimegepant 75 mg disintegrating 75 mg PO DAILYP PRN Migraine 06/24/23 11/23/23 tablet (Nurtec ODT) Headache rivaroxaban 2.5 mg tablet (Xarelto) 2.5 mg PO BID 06/24/23 11/23/23 terbinafine HCl 250 mg tablet 250 mg PO DAILY 06/24/23 11/23/23 doxepin 25 mg capsule 10 mg PO HS 10/20/23 11/23/23 mirtazapine 15 mg tablet 15 mg PO DAILY 10/20/23 11/23/23 cyanocobalamin (vitamin B-12) 1,000 mcg IM MONTHLY 11/23/23 11/23/23 1,000 mcg/mL injection solution doxycycline hyclate 100 mg tablet 100 mg PO BID 11/23/23 11/23/23 hydrocodone 10 mg-acetaminophen 1 tab PO BID PRN chronic pain 11/23/23 11/23/23 325 mg tablet Previous Rx's ?Medication ?Instructions ?Recorded fluticasone fur. 100 mcg-umeclid 1 inh inhalation DAILY 30 days #28 06/24/23 62.5 mcg-vilant 25 mcg ea inhalat.powder (Trelegy Ellipta) Allergies Allergy/AdvReac Type Severity Reaction Status Date / Time No Known Allergies Allergy Verified 10/11/23 14:44 [facility] <LA Cox - Last Filed: 11/23/23 21:35> [facility] Disclaimer: The information contained in this section may have been updated after the patient was seen, as this information can be updated by other users. Medical History Acute exacerbation of chronic obstructive pulmonary disease Fibrosis of lung Smoking greater than 30 pack years Pulmonary emphysema ILD (interstitial lung disease) HSV-1 infection Urinary tract infection Pneumonia Urinary incontinence Osteoarthritis Rheumatoid arthritis History of back pain Surgical History History of hip replacement History of colonoscopy History of left hip replacement Family History Other Family history of COPD (chronic obstructive pulmonary disease) Family history of arthritis Family history of cancer Family history of diabetes mellitus type I Family history of hypertension Social History Smoking Status: Current every day smoker tobacco type: cigarettes packs per day: 1 alcohol intake: former substance use type: denies use current occupational status: unemployed Travel in the last 8 weeks: None household members: spouse and children housing: apartment caffeine: Yes Other Medical History Have you received the Flu Vaccine for this season: No Have you received the Pneumonia Vaccine: No <LA Cox - Last Filed: 11/23/23 21:35> ROS Obtained: Yes Systems reviewed as appropriate & no additional complaints except as documented Physical Exam <LA Cox - Last Filed: 11/23/23 21:35> General General appearance: alert and in no apparent distress Respiratory Respiratory exam: Present normal lung sounds bilaterally Cardiovascular Cardiovascular exam: Present regular rate Neurological Exam Neurological exam: Present alert and oriented X3 Medical Decision Making <LA Cox - Last Filed: 11/23/23 21:35> Medical Records Medical records reviewed: Yes I reviewed the patient's medical records. Screening: Per USPSTF and CDC recommendations, given the prevalence of disease in our region, it is our hospital?s policy to screen for HIV and viral Hepatitis for all patients aged 18 and over and those with ongoing risk factors. Tin Inquiry Pt receiving controlled substance: No Vital Signs: 11/23/23 17:41 11/23/23 18:18 11/23/23 18:30 Temperature 98.5 F Temperature Source Oral Pulse Rate 102 H 84 Pulse Rate [Right Radial] 94 H Respiratory Rate 20 Blood Pressure 153/99 H 132/89 Blood Pressure [Right Arm] 131/84 Blood Pressure Mean 103 Blood Pressure Mean [Right Arm] 99 02 Sat by Pulse Oximetry 96 97 96 Oxygen Delivery Method Room Air Room Air 11/23/23 19:02 11/23/23 19:30 11/23/23 20:00 Temperature Temperature Source Pulse Rate 91 H 92 H 88 Pulse Rate [Right Radial] Respiratory Rate 14 Blood Pressure 144/95 H 110/77 128/76 Blood Pressure [Right Arm] Blood Pressure Mean 111 Blood Pressure Mean [Right Arm] 02 Sat by Pulse Oximetry 95 95 96 Oxygen Delivery Method Room Air 11/23/23 20:30 11/23/23 21:00 11/23/23 21:37 Temperature 98.0 F Temperature Source Pulse Rate 90 80 83 Pulse Rate [Right Radial] Respiratory Rate 15 14 20 Blood Pressure 112/74 117/59 L 121/81 Blood Pressure [Right Arm] Blood Pressure Mean Blood Pressure Mean [Right Arm] 02 Sat by Pulse Oximetry 95 96 Oxygen Delivery Method Room Air Lab Data Lab results reviewed: Yes I reviewed the patient's lab results. Lab Results 11/23/23 18:06: WBC 6.5, RBC 4.69, Hgb 13.6, Hct 41.6, MCV 88.8, MCH 28.9, MCHC 32.6, RDW 19.0 H, Plt Count 269, MPV 9.4, Neut % (Auto) 54.8, Lymph % (Auto) 35.0, [place] % (Auto) 7.6, Eos % (Auto) 1.5, Baso % (Auto) 1.1, Neut # (Auto) 3.6, Lymph # (Auto) 2.3, [place] # (Auto) 0.5, Eos # (Auto) 0.1, Baso # (Auto) 0.1, Sodium 140, Potassium 2.9 L*, Chloride 105, Carbon Dioxide 27, Anion Gap 10.9, BUN 13, Creatinine 1.30 H, Estimated Creat Clear 42, Estimated GFR 42 L, Est GFR ( Amer) 50 L, Glucose 138 H, Lactate 1.7, Calcium 9.3, Magnesium 2.2, Total Bilirubin 0.6, AST 41 H, ALT 30, Alkaline Phosphatase 75, Total Protein 7.7, Albumin 4.6, Globulin 3.1, Albumin/Globulin Ratio 1.5, Procalcitonin 0.046 11/23/23 18:17: Urine Color Yellow, Urine Appearance Clear, Urine pH 6.0, Ur Specific Hamer >= 1.030, Urine Protein 1+ A, Urine Glucose (UA) Negative, Urine Ketones Trace, Urine Blood Negative, Urine Nitrate Negative, Urine Bilirubin Negative, Urine Urobilinogen 1.0, Ur Leukocyte Esterase Trace A, Urine RBC 3-5, Urine WBC 5-10, Ur Squamous Epith Cells 10-20, Urine Bacteria 4+, Urine Mucus 4+, Urine Yeast Occasional 11/23/23 18:19: SARS-CoV-2 (PCR) Not detected, Influenza A Untype (PCR) Not detected, Influenza Type B (PCR) Not detected 11/23/23 19:26: Stl Aeromonas (PCR) Not detected, Stl C. cayetanensis PCR Not detected, Stool Rotavirus (PCR) Not detected, Stl Adenov F 40/41 PCR Not detected, Stool Astrovirus (PCR) Not detected, Stool Campylobacter PCR Not detected, Stl C.difficile Tox PCR Not detected, Stool Cryptosporidium PCR Not detected, Stl E.coli Shiga Tox PCR Not detected, Stool E coli O157 PCR Not detected, Stl Enterotoxigenic E PCR Not detected, Stool EPEC (PCR) Not detected, Stool EAEC (PCR) Not detected, Stl E. histolytica PCR Not detected, Stool Giardia Lamblia PCR Not detected, Stool Salmonella PCR Not detected, Stool Sapovirus (PCR) Not detected, Stl P. shigelloides PCR Not detected, Stl Shigella/EIEC PCR Not detected, St Y.enterocolitica PCR Not detected, Stool Vibrio (PCR) Not detected, Stl Vibrio cholerae PCR Not detected, Stl Norovirus GI/GII PCR Not detected 11/23/23 18:06 11/23/23 18:06 Orders (Tests/Meds): ED MEDICATIONS Generic Name Dose Route Start Last Admin Trade Name Freq PRN Reason Stop Dose Admin Acetaminophen 650 mg 11/23/23 22:03 Acetaminophen 325mg Tab PO 12/23/23 22:02 Q4HP PRN Fever or Mild Pain (1-3) Doxepin HCl 10 mg 11/24/23 21:00 Doxepin Hcl 10 Mg Capsule PO 12/24/23 20:59 HS MARIPOSA Enoxaparin Sodium 40 mg 11/24/23 09:00 Enoxaparin 40mg/0.4ml Syringe SQ 12/24/23 08:59 DAILY MARIPOSA Potassium Chloride/Sodium Chloride 1,000 mls @ 100 mls/hr 11/23/23 19:00 11/23/23 19:15 Kcl 40 Meq-Ns 1,000ml Iv Soln IV 12/23/23 18:59 100 mls/hr .Q10H MARIPOSA Administration Melatonin 10 mg 11/24/23 21:00 Melatonin 5mg Tablet PO 12/24/23 20:59 HS MARIPOSA Ondansetron HCl 4 mg 11/23/23 22:03 Ondansetron 4mg/2ml Vial IV 12/23/23 22:02 Q8HP PRN Nausea Pantoprazole Sodium 40 mg 11/24/23 21:00 Pantoprazole 40mg Tablet PO 12/24/23 20:59 HS MARIPOSA Promethazine HCl 12.5 mg 11/23/23 22:03 Promethazine Hcl 25mg/Ml 1ml Vial IV 12/23/23 22:02 Q6HP PRN Nausea And Vomiting Sodium Chloride 10 ml 11/23/23 19:06 11/23/23 19:07 Sodium Chloride 0.9% 10ml Syr (Rad Only) IV 12/23/23 19:05 10 ml NEEDED PRN Administration Maintain IV Site Sodium Chloride 10 ml 11/23/23 22:03 Sodium Chloride 0.9% 10ml Flush Syringe IV 12/23/23 22:02 NEEDED PRN Maintain IV Site Sodium Chloride 10 ml 11/23/23 22:03 Sodium Chloride 0.9% 10ml Flush Syringe IV 12/23/23 22:02 NEEDED PRN Maintain IV Site Sodium Chloride 25 ml 11/23/23 22:03 Sodium Chloride 0.9% 25ml Bag IV 12/23/23 22:02 NEEDED PRN for Use with IV Promethazine Discontinued Medications Generic Name Dose Route Start Last Admin Trade Name Freq PRN Reason Stop Dose Admin Lactated Ringer's 1,000 mls @ 50 mls/hr 11/23/23 22:15 11/23/23 22:39 Lactated Ringer's 1000 Ml Bag IV 12/23/23 22:14 Not Given .Q20H MARIPOSA Iopamidol 75 ml 11/23/23 19:06 11/23/23 19:07 Iopamidol-370 (76%);100ml Bottle IV 11/23/23 19:07 75 ml ONCE ONE Administration Levofloxacin 250 mg 11/23/23 22:35 11/23/23 22:47 Levofloxacin 250mg Tab PO 11/23/23 22:36 Not Given ONCE ONE Levofloxacin 250 mg 11/24/23 11:00 Levofloxacin 250mg Tab PO 12/04/23 10:59 1100 [facility] Ondansetron HCl 4 mg 11/23/23 18:01 11/23/23 18:14 Ondansetron 4mg/2ml Vial IV 11/23/23 18:02 4 mg ONCE ONE Administration Potassium Chloride 60 meq 11/23/23 18:51 11/23/23 19:11 Potassium Chloride 20meq Tab PO 11/23/23 18:52 60 meq ONCE ONE Administration Trimethoprim/Sulfamethoxazole 1 each 11/23/23 20:29 11/23/23 20:37 Sulfa/Trimethoprim 1 Tablet PO 11/23/23 20:30 1 each ONCE ONE Administration ORDERS Category Date Time Status CT abdomen pelvis w con Stat Cat Scan 11/23/23 18:02 Completed CBC w/Auto Diff [Complete Blood Count Auto Diff] Stat Lab 11/23/23 18:06 Completed CMP [Comprehensive Metabolic Panel] Stat Lab 11/23/23 18:06 Completed Diarrhea 23 Panel, PCR Stat Lab 11/23/23 19:26 Completed Lactic Acid Stat Lab 11/23/23 18:06 Completed Magnesium Stat Lab 11/23/23 18:06 Completed Procalcitonin Stat Lab 11/23/23 18:06 Completed Rapid PCR Covid and Flu A/B Stat Lab 11/23/23 18:19 Completed UA [Urinalysis and Microscopic] Stat Lab 11/23/23 18:17 Completed Urine Culture Stat Micro 11/23/23 18:17 Received Medical Decision Narrative: In summary patient is a 63-year-old female who presents to the emergency department for evaluation of nausea vomiting diarrhea. Patient is hemodynamically stable upon arrival, afebrile. Physical exam is remarkable for a nontender abdomen with hyperactive bowel sounds normal breath sounds normal heart sounds normal sinus rhythm on the bedside monitor. Differential diagnosis includes immunosuppression, infectious or viral gastroenteritis, infection of other site including urinary or urinary tract infection etc. Initial workup will be conducted with hematologic labs CT scan abdomen pelvis urinalysis. Initial interventions include Zofran. Initial workup reviewed by me shows hypokalemia of 2.9 but a normal white count with no shift however urinalysis while appearing contaminated also has a significant bacteria and my informal interpretation of her CT scan abdomen pelvis shows ascending through mid transverse colon colitis, there are chronic appearing umbilical hernia that does not show any evidence of bowel obstruction prior to radiology read.. Upon repeat evaluation patient is able to tolerate oral intake without vomiting. Given this it is can take several hours to replete her potassium and results her diarrhea panel and given that the patient is immunosuppressed had interact discussion with hospital medicine about patient management and she will be admitted for further evaluation and care <Gilmer Sahu MD - Last Filed: 11/24/23 00:30> Vital Signs: 11/23/23 17:41 11/23/23 18:18 11/23/23 18:30 Temperature 98.5 F Temperature Source Oral Pulse Rate 102 H 84 Pulse Rate [Right Radial] 94 H Respiratory Rate 20 Blood Pressure 153/99 H 132/89 Blood Pressure [Right Arm] 131/84 Blood Pressure Mean 103 Blood Pressure Mean [Right Arm] 99 02 Sat by Pulse Oximetry 96 97 96 Oxygen Delivery Method Room Air Room Air 11/23/23 19:02 11/23/23 19:30 11/23/23 20:00 Temperature Temperature Source Pulse Rate 91 H 92 H 88 Pulse Rate [Right Radial] Respiratory Rate 14 Blood Pressure 144/95 H 110/77 128/76 Blood Pressure [Right Arm] Blood Pressure Mean 111 Blood Pressure Mean [Right Arm] 02 Sat by Pulse Oximetry 95 95 96 Oxygen Delivery Method Room Air 11/23/23 20:30 11/23/23 21:00 11/23/23 21:37 Temperature 98.0 F Temperature Source Pulse Rate 90 80 83 Pulse Rate [Right Radial] Respiratory Rate 15 14 20 Blood Pressure 112/74 117/59 L 121/81 Blood Pressure [Right Arm] Blood Pressure Mean Blood Pressure Mean [Right Arm] 02 Sat by Pulse Oximetry 95 96 Oxygen Delivery Method Room Air Lab Data Lab Results 11/23/23 18:06: WBC 6.5, RBC 4.69, Hgb 13.6, Hct 41.6, MCV 88.8, MCH 28.9, MCHC 32.6, RDW 19.0 H, Plt Count 269, MPV 9.4, Neut % (Auto) 54.8, Lymph % (Auto) 35.0, [place] % (Auto) 7.6, Eos % (Auto) 1.5, Baso % (Auto) 1.1, Neut # (Auto) 3.6, Lymph # (Auto) 2.3, [place] # (Auto) 0.5, Eos # (Auto) 0.1, Baso # (Auto) 0.1, Sodium 140, Potassium 2.9 L*, Chloride 105, Carbon Dioxide 27, Anion Gap 10.9, BUN 13, Creatinine 1.30 H, Estimated Creat Clear 42, Estimated GFR 42 L, Est GFR ( Amer) 50 L, Glucose 138 H, Lactate 1.7, Calcium 9.3, Magnesium 2.2, Total Bilirubin 0.6, AST 41 H, ALT 30, Alkaline Phosphatase 75, Total Protein 7.7, Albumin 4.6, Globulin 3.1, Albumin/Globulin Ratio 1.5, Procalcitonin 0.046 11/23/23 18:17: Urine Color Yellow, Urine Appearance Clear, Urine pH 6.0, Ur Specific [place] >= 1.030, Urine Protein 1+ A, Urine Glucose (UA) Negative, Urine Ketones Trace, Urine Blood Negative, Urine Nitrate Negative, Urine Bilirubin Negative, Urine Urobilinogen 1.0, Ur Leukocyte Esterase Trace A, Urine RBC 3-5, Urine WBC 5-10, Ur Squamous Epith Cells 10-20, Urine Bacteria 4+, Urine Mucus 4+, Urine Yeast Occasional 11/23/23 18:19: SARS-CoV-2 (PCR) Not detected, Influenza A Untype (PCR) Not detected, Influenza Type B (PCR) Not detected 11/23/23 19:26: Stl Aeromonas (PCR) Not detected, Stl C. cayetanensis PCR Not detected, Stool Rotavirus (PCR) Not detected, Stl Adenov F 40/41 PCR Not detected, Stool Astrovirus (PCR) Not detected, Stool Campylobacter PCR Not detected, Stl C.difficile Tox PCR Not detected, Stool Cryptosporidium PCR Not detected, Stl E.coli Shiga Tox PCR Not detected, Stool E coli O157 PCR Not detected, Stl Enterotoxigenic E PCR Not detected, Stool EPEC (PCR) Not detected, Stool EAEC (PCR) Not detected, Stl E. histolytica PCR Not detected, Stool Giardia Lamblia PCR Not detected, Stool Salmonella PCR Not detected, Stool Sapovirus (PCR) Not detected, Stl P. shigelloides PCR Not detected, Stl Shigella/EIEC PCR Not detected, St Y.enterocolitica PCR Not detected, Stool Vibrio (PCR) Not detected, Stl Vibrio cholerae PCR Not detected, Stl Norovirus GI/GII PCR Not detected Orders (Tests/Meds): ED MEDICATIONS Generic Name Dose Route Start Last Admin Trade Name Freq PRN Reason Stop Dose Admin Acetaminophen 650 mg 11/23/23 22:03 Acetaminophen 325mg Tab PO 12/23/23 22:02 Q4HP PRN Fever or Mild Pain (1-3) Doxepin HCl 10 mg 11/24/23 21:00 Doxepin Hcl 10 Mg Capsule PO 12/24/23 20:59 HS MARIPOSA Enoxaparin Sodium 40 mg 11/24/23 09:00 Enoxaparin 40mg/0.4ml Syringe SQ 12/24/23 08:59 DAILY [facility] Potassium Chloride/Sodium Chloride 1,000 mls @ 100 mls/hr 11/23/23 19:00 11/23/23 19:15 Kcl 40 Meq-Ns 1,000ml Iv Soln IV 12/23/23 18:59 100 mls/hr .Q10H MARIPOSA Administration Melatonin 10 mg 11/24/23 21:00 Melatonin 5mg Tablet PO 12/24/23 20:59 HS MARIPOSA Ondansetron HCl 4 mg 11/23/23 22:03 Ondansetron 4mg/2ml Vial IV 12/23/23 22:02 Q8HP PRN Nausea Pantoprazole Sodium 40 mg 11/24/23 21:00 Pantoprazole 40mg Tablet PO 12/24/23 20:59 HS MARIPOSA Promethazine HCl 12.5 mg 11/23/23 22:03 Promethazine Hcl 25mg/Ml 1ml Vial IV 12/23/23 22:02 Q6HP PRN Nausea And Vomiting Sodium Chloride 10 ml 11/23/23 19:06 11/23/23 19:07 Sodium Chloride 0.9% 10ml Syr (Rad Only) IV 12/23/23 19:05 10 ml NEEDED PRN Administration Maintain IV Site Sodium Chloride 10 ml 11/23/23 22:03 Sodium Chloride 0.9% 10ml Flush Syringe IV 12/23/23 22:02 NEEDED PRN Maintain IV Site Sodium Chloride 10 ml 11/23/23 22:03 Sodium Chloride 0.9% 10ml Flush Syringe IV 12/23/23 22:02 NEEDED PRN Maintain IV Site Sodium Chloride 25 ml 11/23/23 22:03 Sodium Chloride 0.9% 25ml Bag IV 12/23/23 22:02 NEEDED PRN for Use with IV Promethazine Discontinued Medications Generic Name Dose Route Start Last Admin Trade Name Freq PRN Reason Stop Dose Admin Lactated Ringer's 1,000 mls @ 50 mls/hr 11/23/23 22:15 11/23/23 22:39 Lactated Ringer's 1000 Ml Bag IV 12/23/23 22:14 Not Given .Q20H MARIPOSA Iopamidol 75 ml 11/23/23 19:06 11/23/23 19:07 Iopamidol-370 (76%);100ml Bottle IV 11/23/23 19:07 75 ml ONCE ONE Administration Levofloxacin 250 mg 11/23/23 22:35 11/23/23 22:47 Levofloxacin 250mg Tab PO 11/23/23 22:36 Not Given ONCE ONE Levofloxacin 250 mg 11/24/23 11:00 Levofloxacin 250mg Tab PO 12/04/23 10:59 1100 [facility] Ondansetron HCl 4 mg 11/23/23 18:01 11/23/23 18:14 Ondansetron 4mg/2ml Vial IV 11/23/23 18:02 4 mg ONCE ONE Administration Potassium Chloride 60 meq 11/23/23 18:51 11/23/23 19:11 Potassium Chloride 20meq Tab PO 11/23/23 18:52 60 meq ONCE ONE Administration Trimethoprim/Sulfamethoxazole 1 each 11/23/23 20:29 11/23/23 20:37 Sulfa/Trimethoprim 1 Tablet PO 11/23/23 20:30 1 each ONCE ONE Administration ORDERS Category Date Time Status CT abdomen pelvis w con Stat Cat Scan 11/23/23 18:02 Completed CBC w/Auto Diff [Complete Blood Count Auto Diff] Stat Lab 11/23/23 18:06 Completed CMP [Comprehensive Metabolic Panel] Stat Lab 11/23/23 18:06 Completed Diarrhea 23 Panel, PCR Stat Lab 11/23/23 19:26 Completed Lactic Acid Stat Lab 11/23/23 18:06 Completed Magnesium Stat Lab 11/23/23 18:06 Completed Procalcitonin Stat Lab 11/23/23 18:06 Completed Rapid PCR Covid and Flu A/B Stat Lab 11/23/23 18:19 Completed UA [Urinalysis and Microscopic] Stat Lab 11/23/23 18:17 Completed Urine Culture Stat Micro 11/23/23 18:17 Received ECG Data Tracing #1: I reviewed this ECG and interpreted as documented below: EKG interpreted by me, Richard Cosme MD, personally at 1999. Normal sinus rhythm. No ST elevations or depressions. No peaked or depressed T waves. Normal QTc of 441. Medical Decision Narrative: In summary patient is a 63-year-old female who presents to the emergency department for evaluation of nausea vomiting diarrhea. Patient is hemodynamically stable upon arrival, afebrile. Physical exam is remarkable for a nontender abdomen with hyperactive bowel sounds normal breath sounds normal heart sounds normal sinus rhythm on the bedside monitor. Differential diagnosis includes immunosuppression, infectious or viral gastroenteritis, infection of other site including urinary or urinary tract infection etc. Initial workup will be conducted with hematologic labs CT scan abdomen pelvis urinalysis. Initial interventions include Zofran. Initial workup reviewed by me shows hypokalemia of 2.9 but a normal white count with no shift however urinalysis while appearing contaminated also has a significant bacteria and my informal interpretation of her CT scan abdomen pelvis shows ascending through mid transverse colon colitis, there are chronic appearing umbilical hernia that does not show any evidence of bowel obstruction prior to radiology read.. Upon repeat evaluation patient is able to tolerate oral intake without vomiting. Given this it is can take several hours to replete her potassium and results her diarrhea panel and given that the patient is immunosuppressed had interact discussion with hospital medicine about patient management and she will be admitted for further evaluation and care. I, Gilmer Sahu MD, was present at the time of patient arrival to the emergency department and agree with plan and management as stated above. Critical Care <LA Cox - Last Filed: 11/23/23 21:35> Critical Care Time Critical Care Time: No
--- NOTE | 2023-11-23 18:02 | CT_ITS ---
PROCEDURE INFORMATION: Exam: CT Abdomen And Pelvis With Contrast Exam date and time: 11/23/2023 7:09 PM Age: 63 years old Clinical indication: Nausea and vomiting; Additional info: Nvd, immunosuppresed TECHNIQUE: Imaging protocol: Computed tomography of the abdomen and pelvis with contrast. Radiation optimization: All CT scans at this facility use at least one of these dose optimization techniques: automated exposure control; mA and/or kV adjustment per patient size (includes targeted exams where dose is matched to clinical indication); or iterative reconstruction. Contrast material: ISOVUE; Contrast volume: 75 ml; Contrast route: IV; COMPARISON: 1. CT ABDOMEN PELVIS W CON 10/19/2023 10:[address] ABDOMEN PELVIS W CON 06/23/2023 2:39 PM 3. CR XR HIP LT 2-3V W/PELVIS 10/10/2023 8:24 PM FINDINGS: Lungs: There are scattered areas of emphysema throughout the lungs. Scattered areas of bronchial wall thickening which are likely chronic inflammatory. A few areas of subpleural reticulation are noted, nonspecific. Liver: Normal. Gallbladder and biliary ducts: No acute process. Pancreas: Normal. Spleen: Normal. Adrenal glands: The adrenal glands appear normal. Kidneys and ureters: There are no soft tissue renal masses or hydronephrosis. Stomach and bowel: There is mild diffuse wall thickening of the colon. The patient is status post prior partial colectomy. Appendix: No evidence of appendicitis. Intraperitoneal space: Unremarkable. Vasculature: The aorta demonstrates significant tortuosity. There is atherosclerotic disease of the visualized aorta and its major branch vessels. Lymph nodes: No lymphadenopathy. Urinary bladder: Unremarkable as visualized. Reproductive: The patient has undergone prior hysterectomy. Bones/joints: There is a left hip arthroplasty with associated streak artifact mildly limits evaluation of the pelvis. There is diffuse degenerative disease of the visualized osseous structures. There is a dextroscoliotic curvature of the spine. Soft tissues: There is a supraumbilical hernia containing a loop of nonobstructed bowel. Other findings: Motion artifact mildly limits evaluation. IMPRESSION: Wall thickening of the colon extending from the cecum to the mid transverse colon is concerning for colitis.
[2023-11-23] MEDS: ONDANSETRON 4MG/2ML VIAL 4 MG IV (18:14)
[2023-11-23 18:16] LABS: Appearance,Urine CLEAR (Clear); Bilirubin,Urine Negative (Negative); Blood, Urine Negative (Negative); Color,Urine YELLOW (Yellow); Glucose,Urine (UA) Negative (Negative); Nitrate,Urine Negative (Negative); Specific Gravity, Urine >= 1.030 (1.005-1.030)
[2023-11-23 18:17] LABS: Microscopic, Urine URINE MICROSCOPIC (MICROSCOPIC)
[2023-11-23 18:25] LABS: Basophils # 0.1 K/mm3 (0-0.2); Basophils % 1.1 % (0.1-2.0); Eosinophils # 0.1 K/mm3 (0.0-0.4); Eosinophils % 1.5 % (0.1-12.0); Hematocrit 41.6 % (37.0-47.0); Hemoglobin 13.6 g/dL (12.2-16.2); Lymphocytes # 2.3 K/mm3 (0.7-4.5); Mean Corpuscular HGB Conc 32.6 g/dL (31.8-35.4); Mean Corpuscular Hemoglobin 28.9 pg (27.0-31.2); Mean Corpuscular Volume 88.8 fl (81-99); Mean Platelet Volume 9.4 fl (7.4-10.4); Monocytes # 0.5 K/mm3 (0.1-1.0); Monocytes % 7.6 % (1.7-9.3); Neutrophils # 3.6 K/mm3 (1.8-7.8); Neutrophils % 54.8 % (37.0-80.0); Platelet Count 269 K/mm3 (142-424); Red Blood Count 4.69 M/mm3 (4.20-5.40); White Blood Count 6.5 K/mm3 (4.8-10.8)
[2023-11-23 18:25] LABS: Coronavirus 19, PCR Not Detected (NotDetected); Influenza A, PCR Not Detected (NotDetected); Influenza B, PCR Not Detected (NotDetected)
[2023-11-23 18:27] LABS: Albumin Level 4.6 g/dl (3.5-5.0); Chloride 105 mmol/L (98-107); Sodium 140 mmol/L (136-145)
[2023-11-23 18:30] LABS: Alanine Aminotransferase 30 U/L (12-78); Albumin/Globulin Ratio 1.5 (1.1-1.8); Alkaline Phosphatase 75 U/L (38-126); Anion Gap 10.9 mEq/L (5-15); Aspartate Amino Transferase 41 U/L (14-36); Bilirubin,Total 0.6 mg/dl (0.2-1.3); Blood Urea Nitrogen 13 mg/dl (7-17); Carbon Dioxide 27 mmol/L (22.0-30.0); Creatinine Clearance Estimated 42 mL/min (50-200); Estimated Glomerular Filt Rate 42 ml/min (>60); GFR (African American) 50 ML/MIN (>60); Globulin 3.1 g/dL (1.3-3.2); Total Protein,Serum 7.7 g/dl (6.3-8.2)
[2023-11-23 18:31] LABS: Calcium 9.3 mg/dl (8.4-10.2); Glucose 138 mg/dl (74-100); Lactic Acid 1.7 mmol/L (0.7-2.1); Magnesium 2.2 mg/dl (1.6-2.3)
[2023-11-23 18:33] LABS: Leukocyte Esterase,Urine Trace (Negative); Protein,Urine 1+ (Negative)
[2023-11-23 18:34] LABS: Ketones,Urine Trace (Negative)
[2023-11-23 18:38] LABS: Bacteria,Urine 4+ /lpf
[2023-11-23 18:39] LABS: Mucus,Urine 4+ /lpf; Yeast,Urine Occasional /lpf
[2023-11-23 18:49] LABS: Potassium 2.9 mmoL/L (3.5-5.1)
--- NOTE | 2023-11-23 18:49 | PC.NURSE ---
Delano Unger PA-C notified critical potassium
[2023-11-23] MEDS: IOPAMIDOL-370 (76%);100ML BOTTLE 75 ML IV (19:07)
[2023-11-23] MEDS: SODIUM CHLORIDE 0.9% 10ML SYR (RAD ONLY) 10 ML IV (19:07)
[2023-11-23 19:11] LABS: Procalcitonin 0.046 ng/mL (0.0-2.0)
[2023-11-23] MEDS: POTASSIUM CHLORIDE 20MEQ TAB 60 MEQ PO (19:11)
[2023-11-23] MEDS: 0.9% NaCl w/40mEq KCL 1,000 ML 100 ML IV (19:15)
[2023-11-23 19:31] LABS: Adenovirus F 40/41, stool Not Detected (NotDetected); Astrovirus Not Detected (NotDetected); Campylobacter Not Detected (NotDetected); Clostridium Difficile A/B, PCR Not Detected (NotDetected); Cryptosporidium Not Detected (NotDetected); Cyclospora Cayetanesis Not Detected (NotDetected); Entamoeba histolytica Not Detected (NotDetected); Enteroaggregative E coli Not Detected (NotDetected); Enteropathogenic E coli Not Detected (NotDetected); Enterotoxigenic E coli Not Detected (NotDetected); Giardia lamblia Not Detected (NotDetected); Norovirus Not Detected (NotDetected); Plesimonas Shigalloides, PCR Not Detected (NotDetected); Rotavirus A Not Detected (NotDetected); Salmonella, PCR Not Detected (NotDetected); Sapovirus Not Detected (NotDetected); Shiga-like toxin E coli Not Detected (NotDetected); Shigella Enterovasive E coli Not Detected (NotDetected); Vibrio Cholerae Not Detected (NotDetected); Vibrio, PCR Not Detected (NotDetected); Yersinia Entercolitica, PCR Not Detected (NotDetected)
--- NOTE | 2023-11-23 19:58 | ECG_ITS ---
APPROVED REPORT Exam: Resting ECG HR:84 bpm ECG Measurements Heart Rate 84 AXES IA 151 P 76 QRSd 81 QRS 80 QT 399 T 75 QTc 441 Conclusion SINUS RHYTHM NORMAL ECG Electronically signed by : DIANA PRITCHARD, 11/24/2023 03:23:30
[2023-11-23] MEDS: SULFA/TRIMETHOPRIM 1 TABLET 1 EACH PO (20:37)
--- NOTE | 2023-11-23 21:36 | PC.NURSE ---
Called report to araceli arevalo on second floor and answered all questions
--- NOTE | 2023-11-23 22:16 | EXP.HP ---
History of Present Illness *Admission Date: 11/23/23 *Reason for visit:: Nausea vomiting diarrhea with colitis and hypokalemia *History of present illness: This 63-year-old female who looks much older than her stated age, has been having nausea vomiting and diarrhea with some abdominal discomfort. She has come to the emergency room for this reason. Patient was noted for renal insufficiency hypokalemia kalemia hyperglycemia and may be a mild urinary tract infection, CT scan of the abdomen pelvis shows thickening of the colon wall that would indicate colitis. This she also has a past medical history of rheumatoid arthritis on immune suppressive drugs. History of OA, long-term smoker with significant COPD. [facility] Disclaimer: The information contained in this section may have been updated after the patient was seen, as this information can be updated by other users. Medical History Acute exacerbation of chronic obstructive pulmonary disease Fibrosis of lung Smoking greater than 30 pack years Pulmonary emphysema ILD (interstitial lung disease) HSV-1 infection Urinary tract infection Pneumonia Urinary incontinence Osteoarthritis Rheumatoid arthritis History of back pain Surgical History History of hip replacement History of colonoscopy History of left hip replacement Family History Other Family history of COPD (chronic obstructive pulmonary disease) Family history of arthritis Family history of cancer Family history of diabetes mellitus type I Family history of hypertension Social History Smoking Status: Current every day smoker tobacco type: cigarettes packs per day: 1 alcohol intake: former substance use type: denies use current occupational status: unemployed Travel in the last 8 weeks: None household members: spouse and children housing: apartment caffeine: Yes Other Medical History Have you received the Flu Vaccine for this season: Yes Have you received the Pneumonia Vaccine: Yes Review of Systems Review of Systems Review of systems:: pertinent systems reviewed and negative unless documented below Constitutional Constitutional: Reports system reviewed and no additional complaints, except as documented, Reports poor appetite and Reports malaise Comments: Patient noted that she is fairly comfortable at the present time without too much nausea., States that she has had diarrhea for 4 days. But she answers questions well and is alert and oriented, family member that is in and is in the room also, and noting when discussing CODE STATUS the patient wanted to be a DNR. This will be done Eyes Eyes: Reports system reviewed and no additional complaints, except as documented ENT Ears, Nose, Mouth, and Throat: Reports system reviewed and no additional complaints, except as documented *Cardiovascular Cardiovascular: Reports system reviewed and no additional complaints, except as documented Comments: Denies any chest pain or chest tightness at this time *Respiratory Respiratory: Reports system reviewed and no additional complaints, except as documented and Reports chest congestion Comments: Patient states her last cigarette was 7 days ago, that she does not feel any more short of breath than normal *Gastrointestinal Gastrointestinal: Reports system reviewed and no additional complaints, except as documented and Reports abdominal pain Comments: Mild abdominal pain to palpation without guarding, patient states she is able to control her bowel and bladder at this time *Genitourinary Genitourinary: Reports system reviewed and no additional complaints, except as documented *Musculoskeletal Musculoskeletal: Reports system reviewed and no additional complaints, except as documented Comments: Patient noted she has no problem ambulating Integumentary/Breasts Skin/Breast: Reports system reviewed and no additional complaints, except as documented *Neurologic Neurologic: Reports system reviewed and no additional complaints, except as documented Psychiatric Psychiatric: Reports system reviewed and no additional complaints, except as documented Endocrine Endocrine: Reports system reviewed and no additional complaints, except as documented Hematologic/Lymphatic Hematologic/Lymphatic: Reports system reviewed and no additional complaints, except as documented Allergic/Immunologic Allergic/Immunologic: Reports system reviewed and no additional complaints, except as documented Meds Home Medications and Allergies Home Medications ?Medication ?Instructions ?Recorded ?Confirmed ?Type adalimumab 40 mg/0.8 mL 40 mg SQ WEEKLY 07/16/21 11/23/23 History subcutaneous pen kit (Humira Pen) escitalopram oxalate 20 mg tablet 20 mg PO DAILY 07/16/21 11/23/23 History folic acid 1 mg tablet 1 mg PO DAILY 07/16/21 11/23/23 History hydroxychloroquine 200 mg tablet 200 mg PO DAILY 07/16/21 11/23/23 History famotidine 40 mg tablet 40 mg PO DAILY 07/17/21 11/23/23 History albuterol sulfate 2.5 mg/3 mL 2.5 mg inhalation TIDP PRN Wheezing 06/24/23 11/23/23 History (0.083 %) solution for nebulization alendronate 70 mg tablet 70 mg PO WEEKLY 06/24/23 11/23/23 History atorvastatin 40 mg tablet 40 mg PO HS 06/24/23 11/23/23 History clopidogrel 75 mg tablet 75 mg PO DAILY 06/24/23 11/23/23 History duloxetine 60 mg capsule,delayed 60 mg PO BID 06/24/23 11/23/23 History release fluticasone fur. 100 mcg-umeclid 1 inh inhalation DAILY 30 days #28 06/24/23 11/23/23 Rx 62.5 mcg-vilant 25 mcg ea inhalat.powder (Trelegy Ellipta) gabapentin 800 mg tablet 800 mg PO BID 06/24/23 11/23/23 History omeprazole 40 mg capsule,delayed 40 mg PO DAILY 06/24/23 11/23/23 History release prednisone 5 mg tablet 5 mg PO DAILYP PRN ARTHRITIS 06/24/23 11/23/23 History FLAREUP rimegepant 75 mg disintegrating 75 mg PO DAILYP PRN Migraine 06/24/23 11/23/23 History tablet (Nurtec ODT) Headache rivaroxaban 2.5 mg tablet (Xarelto) 2.5 mg PO BIDWMEAL 06/24/23 11/24/23 History terbinafine HCl 250 mg tablet 250 mg PO DAILY 06/24/23 11/23/23 History doxepin 25 mg capsule 25 mg PO HS 10/20/23 11/24/23 History mirtazapine 15 mg tablet 15 mg PO DAILY 10/20/23 11/23/23 History cyanocobalamin (vitamin B-12) 1,000 mcg IM MONTHLY 11/23/23 11/23/23 History 1,000 mcg/mL injection solution doxycycline hyclate 100 mg tablet 100 mg PO BID 11/23/23 11/23/23 History hydrocodone 10 mg-acetaminophen 0.5 tab PO BIDP PRN Moderate Pain 11/23/23 11/24/23 History 325 mg tablet (Scale Score 5-6) furosemide 20 mg tablet 20 mg PO DAILY 11/24/23 11/24/23 History levofloxacin 250 mg tablet 250 mg PO 1100 5 days #5 tabs 11/24/23 Rx potassium chloride 20 mEq 20 meq PO DAILY 11/24/23 11/24/23 History tablet,extended release(part/cryst) New Prescriptions to Start Prescriptions: levofloxacin Braulio Soto Allergies Allergy/AdvReac Type Severity Reaction Status Date / Time No Known Allergies Allergy Verified 10/11/23 14:44 Exam Data for Last 24 hours Vital signs and Labs for Last 24 Hours: Temp Pulse Resp BP Pulse Ox O2 Del Method 98.0 F 83 20 121/81 96 Room Air 11/23/23 21:37 11/23/23 21:37 11/23/23 21:37 11/23/23 21:37 11/23/23 21:00 11/23/23 21:37 Laboratory Results - last 24 hr 11/23/23 18:06: WBC 6.5, RBC 4.69, Hgb 13.6, Hct 41.6, MCV 88.8, MCH 28.9, MCHC 32.6, RDW 19.0 H, Plt Count 269, MPV 9.4, Neut % (Auto) 54.8, Lymph % (Auto) 35.0, [place] % (Auto) 7.6, Eos % (Auto) 1.5, Baso % (Auto) 1.1, Neut # (Auto) 3.6, Lymph # (Auto) 2.3, [place]kinson # (Auto) 0.5, Eos # (Auto) 0.1, Baso # (Auto) 0.1, Sodium 140, Potassium 2.9 L*, Chloride 105, Carbon Dioxide 27, Anion Gap 10.9, BUN 13, Creatinine 1.30 H, Estimated Creat Clear 42, Estimated GFR 42 L, Est GFR ( Amer) 50 L, Glucose 138 H, Lactate 1.7, Calcium 9.3, Magnesium 2.2, Total Bilirubin 0.6, AST 41 H, ALT 30, Alkaline Phosphatase 75, Total Protein 7.7, Albumin 4.6, Globulin 3.1, Albumin/Globulin Ratio 1.5, Procalcitonin 0.046 11/23/23 18:17: Urine Color Yellow, Urine Appearance Clear, Urine pH 6.0, Ur Specific [place] >= 1.030, Urine Protein 1+ A, Urine Glucose (UA) Negative, Urine Ketones Trace, Urine Blood Negative, Urine Nitrate Negative, Urine Bilirubin Negative, Urine Urobilinogen 1.0, Ur Leukocyte Esterase Trace A, Urine RBC 3-5, Urine WBC 5-10, Ur Squamous Epith Cells 10-20, Urine Bacteria 4+, Urine Mucus 4+, Urine Yeast Occasional 11/23/23 18:19: SARS-CoV-2 (PCR) Not detected, Influenza A Untype (PCR) Not detected, Influenza Type B (PCR) Not detected I & O for Last 24 hours: Intake & Output 11/20/23 11/21/23 11/22/23 11/23/23 23:59 23:59 23:59 23:59 Weight 58.06 kg Radiology Reports for the Last 24 Hours: Reviewed CT scan, of abdomen and pelvis, reviewed narrative from radiologist Constitutional Constitutional: mild distress, thin and chronically ill appearing Comments: Patient appears at least 15 years older than her stated age, *Routine HEENT Exam Head: Present normocephalic and atraumatic Eye: Present EOMI and PERRL ENT: Present mucous membranes moist Comments: Patient does not have any teeth *Routine Neck Exam Neck: Present supple and full ROM Comments: Moves her neck well with no signs of discomfort or masses Routine Chest/Breast/Axilla Exam Comments: No lymphadenopathy or chest wall pain found patient able to take breath and expand both sides equally *Routine Respiratory Exam Respiratory: Present decreased breath sounds, wheezes, distant breath sounds, diminished air movement, normal respiratory effort and able to speak in complete sentences Comments: Patient is in no respiratory distress but on listening to her lungs posteriorly, significant decrease with adventitious sounds throughout inspiration and expiration. *Routine Cardiovascular Exam Cardiovascular: Present RRR, Normal S1 and Normal S2 Comments: Heart tones are distant but she does have brisk risk her capillary refill in her fingers. Skin turgor is poor , *Routine Abdominal Exam Abdominal: Present soft Comments: Hyperactive bowel sounds noted in all wesley. Generalized tenderness throughout abdomen *Routine Rectal Exam Rectal:: deferred *Routine Genitalia Exam Genitalia:: deferred *Routine Extremities Exam Extremities: Present pulses intact, normal capillary refill, tenderness and joint swelling Comments: Patient has several joints especially the joints of the hands and fingers, which showed rheumatoid arthritis swelling and decreased range of motion Routine Back/Spine/Pelvis Exam Back/Spine: Present full ROM Comments: Patient is able to stand walk and transfer without any assistance., She moves well in the bed with no significant back pain noted *Routine Skin Exam Skin: Present intact Comments: Skin turgor is actually poor, and she has darkening of the skin showing many years of smoking *Routine Neurological Exam Neurological: Present alert, oriented X3, moving all extremities, normal tone, vision grossly intact and hearing grossly intact Routine Psychiatric Exam Psychiatric: Present normal affect, normal thought process, cooperative and good judgment Comments: Pleasant, easy to talk with, answers questions well H&P: Result Impressions 1. Nauseating vomiting and diarrhea possible flareup of colitis. Changes in electrolytes., WBCs are not elevated but with her being on immunosuppressive drugs for the rheumatoid arthritis, this can be deceptive. Will consult GI. Monitor her labs and replace fluid and KCl as needed. Will continue on clear liquids as tolerated and treat nausea as needed, no plans to give anything to stop diarrhea at this time. 2. Significant COPD long-term smoker; will start on nebulizers. Her O2 saturation is good at this point in time and she has no cough, 3. Urinary tract infection: Labs indicate may be a mild urinary tract infection we will make sure that she has been covered by an antibiotic for tonight and treat as needed depending upon symptoms.. Imaging and Cardiology CT scan - abdomen: Additional comments: Showing some bowel wall thickening,. Without any free fluid Assessment and Plan *Assessment and plan (1) Acute colitis: Status: Acute Category: Medical Code(s): K52.9 - Noninfective gastroenteritis and colitis, unspecified (2) Hypokalemia: Status: Acute Category: Medical Code(s): E87.6 - Hypokalemia (3) Nausea & vomiting: Status: Acute Category: Medical Code(s): R11.2 - Nausea with vomiting, unspecified (4) Abdominal pain: Status: Acute Category: Medical Code(s): R10.9 - Unspecified abdominal pain (5) JAMISON (acute kidney injury): Status: Acute Category: Medical Code(s): N17.9 - Acute kidney failure, unspecified (6) Urinary tract infection: Status: Acute Qualifiers: Hematuria presence: with hematuria Urinary tract infection type: site unspecified Qualified Code(s): N39.0 - Urinary tract infection, site not specified; R31.9 - Hematuria, unspecified Category: Medical Code(s): N39.0 - Urinary tract infection, site not specified (7) Smoking greater than 30 pack years: Status: Acute Category: Social Hx Code(s): F17.210 - Nicotine dependence, cigarettes, uncomplicated (8) Rheumatoid arthritis: Status: Acute Qualifiers: Rheumatoid arthritis location: unspecified site Rheumatoid factor presence: unspecified presence Qualified Code(s): M06.9 - Rheumatoid arthritis, unspecified Category: Medical Code(s): M06.9 - Rheumatoid arthritis, unspecified Plan 63-year-old female with history of RA who presented with nausea, vomiting, abdominal pain. Workup in the ER concerning for colitis and UTI. Case discussed with ER physician, request admission for further management of colitis and UTI with advancement of diet. Medicine agreed to admit for further management. Problems addressed as follows: Colitis UTI - nausea vomiting abdominal pain and hypokalemia -Initiate clear liquids. Monitor for tolerance overnight. -Per my review of CT, has inflammation of colon from cecum to transverse - 1 dose of Bactrim given in the ER for urinary tract infection, further antibiotics pending urine culture and evaluation in the morning. - White count normal at 6.5. Urine abnormal with leuk esterase positive, 5-10 white cells, 4+ bacteria; repeat CBC, CMP, magnesium ordered for the morning. - Will treat abdominal pain as needed also treating diarrhea and nausea vomiting -GI consult placed over there not in the office on Monday. If symptoms improved, will transition to outpatient eval/referral Hypokalemia: Will continue upon normal saline with 40 of K tonight recheck labs in the a.m., IV at 100 an hour; Potassium low at 2.9. Kidney function normal with creatinine 1.3. COPD with wheezing, patient long-term smoker stated she does not need a nicotine patch, but will add DuoNebs regular every 6 to help her with the adventitious lung sounds, Full code Rounded on patient after nurse practitioner. Personally examined and interviewed patient. Agree with exam findings and care plan as documented. Adjustments made to plan above.
[2023-11-24] VITALS: BP 131/77; PULSE 79; RESP 19; TEMP 36.8; O2SAT 98
[2023-11-24] MEDS: MELATONIN 5MG TABLET 10 MG PO (00:34)
[2023-11-24] MEDS: DOXEPIN HCL 25 MG CAPSULE PO (00:35)
[2023-11-24 04:00] VITALS: BP 144/90; PULSE 83; PULSE 85; RESP 16; TEMP 37; O2SAT 95; BMI 28.8
--- NOTE | 2023-11-24 05:31 | PC.NURSE ---
Alert and oriented. Complained of feeling anxious once resting in bed, Fatou Quach APRN notified, reordered home medication and melatonin to assist. Pt has rested well since administration of medications per apr. Pt has not had any diarrhea since arriving, ambulates to bathroom with standby assist. Tolerating room air, O2 sat >90%, wheezing noted to bilateral upper lobes. Abdomen soft and nontender, hyperactive bowel sounds, passing gas. Call light in reach.
[2023-11-24 06:56] LABS: Albumin Level 3.2 g/dl (3.5-5.0); Basophils # 0.1 K/mm3 (0-0.2); Basophils % 1.1 % (0.1-2.0); Chloride 119 mmol/L (98-107); Eosinophils # 0.2 K/mm3 (0.0-0.4); Eosinophils % 2.7 % (0.1-12.0); Hematocrit 34.9 % (37.0-47.0); Lymphocytes # 1.8 K/mm3 (0.7-4.5); Lymphocytes % 33.5 % (10-50); Mean Corpuscular HGB Conc 32.7 g/dL (31.8-35.4); Mean Corpuscular Hemoglobin 29.4 pg (27.0-31.2); Mean Corpuscular Volume 89.9 fl (81-99); Mean Platelet Volume 9.9 fl (7.4-10.4); Monocytes # 0.5 K/mm3 (0.1-1.0); Monocytes % 8.6 % (1.7-9.3); Neutrophils % 54.2 % (37.0-80.0); Platelet Count 197 K/mm3 (142-424); Potassium 5.3 mmoL/L (3.5-5.1); Red Blood Count 3.89 M/mm3 (4.20-5.40); Red Cell Distribution Width 18.8 % (11.5-17.5); Sodium 142 mmol/L (136-145); White Blood Count 5.5 K/mm3 (4.8-10.8)
[2023-11-24 06:59] LABS: Alanine Aminotransferase 15 U/L (12-78); Albumin/Globulin Ratio 1.3 (1.1-1.8); Alkaline Phosphatase 68 U/L (38-126); Anion Gap 9.3 mEq/L (5-15); Aspartate Amino Transferase 27 U/L (14-36); Bilirubin,Total 0.6 mg/dl (0.2-1.3); Blood Urea Nitrogen 9 mg/dl (7-17); Calcium 8.3 mg/dl (8.4-10.2); Carbon Dioxide 19 mmol/L (22.0-30.0); Creatinine Clearance Estimated 49 mL/min (50-200); Estimated Glomerular Filt Rate 50 ml/min (>60); GFR (African American) 61 ML/MIN (>60); Globulin 2.5 g/dL (1.3-3.2); Glucose 81 mg/dl (74-100); Magnesium 2.1 mg/dl (1.6-2.3); Total Protein,Serum 5.7 g/dl (6.3-8.2)
[2023-11-24 07:45] LABS: C-Reactive Protein 0.9 mg/L (0-4)
[2023-11-24 07:50] VITALS: BP 154/94; PULSE 82; RESP 16; TEMP 37; O2SAT 97
--- NOTE | 2023-11-24 07:53 | HMH.PHAINT1 ---
Pharmacy Intervention Comments: MEDICATION RECONCILIATION COMPLETED ON PATIENT USING EXTERNAL FILL HISTORY FROM PHARMACY AND DISCHARGE SUMMARY FROM PREVIOUS ADMISSION. -HECTOR TAN, MADELINED
[2023-11-24] MEDS: DULOXETINE 30MG CAPSULE.DR 60 MG PO (07:58)
[2023-11-24] MEDS: predniSONE 5MG TAB 5 MG PO (07:59)
[2023-11-24] MEDS: MIRTAZAPINE 15 MG TABLET PO (07:59)
[2023-11-24] MEDS: RIVAROXABAN 2.5MG TABLET 2.5 MG PO (07:59)
[2023-11-24] MEDS: CLOPIDOGREL 75MG TAB 75 MG PO (07:59)
[2023-11-24] MEDS: GABAPENTIN 800MG TABLET 800 MG PO (07:59)
[2023-11-24] MEDS: CITALOPRAM 40MG TABLET 40 MG PO (07:59)
[2023-11-24 08:00] VITALS: PULSE 80
[2023-11-24 08:17] LABS: Hemoglobin 11.5 g/dL (12.2-16.2)
[2023-11-24] MEDS: FLUTICASONE/UMECLIDIN/VILANTER 100/62.5/25MCG INHALER 1 PUFF IH (11:44)
[2023-11-24 12:00] VITALS: BP 138/90; PULSE 90; RESP 16; TEMP 37; O2SAT 94
[2023-11-24 13:24] LABS: NT Pro Brain Natriuretic Pep. 150 pg/mL (0-125)
[2023-11-24 13:59] LABS: Chloride 114 mmol/L (98-107); Sodium 141 mmol/L (136-145)
[2023-11-24 14:00] LABS: Potassium 4.4 mmoL/L (3.5-5.1)
[2023-11-24 14:02] LABS: Blood Urea Nitrogen 8 mg/dl (7-17); Creatinine Clearance Estimated 42 mL/min (50-200); Estimated Glomerular Filt Rate 42 ml/min (>60); GFR (African American) 50 ML/MIN (>60)
[2023-11-24 14:03] LABS: Anion Gap 10.4 mEq/L (5-15); Calcium 8.8 mg/dl (8.4-10.2); Carbon Dioxide 21 mmol/L (22.0-30.0); Glucose 150 mg/dl (74-100)
--- NOTE | 2023-11-24 14:13 | EXP.DC.SUM ---
General Admission date:: 11/23/23 Discharge date: 11/24/23 HPI HPI HPI: This 63-year-old female who looks much older than her stated age, has been having nausea vomiting and diarrhea with some abdominal discomfort. She has come to the emergency room for this reason. Patient was noted for renal insufficiency hypokalemia kalemia hyperglycemia and may be a mild urinary tract infection, CT scan of the abdomen pelvis shows thickening of the colon wall that would indicate colitis. This she also has a past medical history of rheumatoid arthritis on immune suppressive drugs. History of OA, long-term smoker with significant COPD. Hospital Course Hospital Course Hospital Course: 63-year-old female with history of RA who presented with nausea, vomiting, abdominal pain. Workup in the ER concerning for colitis and UTI. Case discussed with ER physician, request admission for further management of colitis and UTI with advancement of diet. Medicine agreed to admit for further management. Did well overnight. Tolerating p.o. intake. Overall feeling better. Will continue antibiotics for UTI. Needs follow-up with GI as an outpatient. Stable discharge home. Problems addressed as follows: Colitis UTI - nausea vomiting abdominal pain and hypokalemia. Initiated on clear liquid diet. Tolerated overnight. Able to advance on day of discharge. Per my review of CT, has inflammation of colon from cecum to transverse. 1 dose of Bactrim given in the ER for urinary tract infection, will continue levofloxacin daily for 5 days to treat UTI. White count normal at 6.5. Urine abnormal with leuk esterase positive, 5-10 white cells, 4+ bacteria. Abdominal pain showed some improvement. No significant additional diarrhea. Concern for infectious versus inflammatory colitis. Patient already on Humira and hydroxychloroquine for RA. Stool lactoferrin and calprotectin ordered and pending at discharge. As she is tolerating oral intake and feeling better with normal white count of 5.5, will refer to GI as an outpatient. Hypokalemia: Replaced during admission. Normalized. In the mid 4 range at time of discharge. Magnesium normal at 2.1 COPD with wheezing, patient long-term smoker stated she does not need a nicotine patch. Treated with DuoNebs. Stable on room air during admission Total time spent on discharge 32 minutes in counseling, documentation, chart review, and direct care with patient. Exam Data for Last 24 hours Vital signs and Labs for Last 24 Hours: Temp Pulse Resp BP Pulse Ox O2 Del Method 98.6 F 90 16 138/90 94 L Room Air 11/24/23 12:00 11/24/23 12:00 11/24/23 12:00 11/24/23 12:00 11/24/23 12:00 11/24/23 12:00 Laboratory Results - last 24 hr 11/23/23 18:06: WBC 6.5, RBC 4.69, Hgb 13.6, Hct 41.6, MCV 88.8, MCH 28.9, MCHC 32.6, RDW 19.0 H, Plt Count 269, MPV 9.4, Neut % (Auto) 54.8, Lymph % (Auto) 35.0, [place] % (Auto) 7.6, Eos % (Auto) 1.5, Baso % (Auto) 1.1, Neut # (Auto) 3.6, Lymph # (Auto) 2.3, [place] # (Auto) 0.5, Eos # (Auto) 0.1, Baso # (Auto) 0.1, Sodium 140, Potassium 2.9 L*, Chloride 105, Carbon Dioxide 27, Anion Gap 10.9, BUN 13, Creatinine 1.30 H, Estimated Creat Clear 42, Estimated GFR 42 L, Est GFR ( Amer) 50 L, Glucose 138 H, Lactate 1.7, Calcium 9.3, Magnesium 2.2, Total Bilirubin 0.6, AST 41 H, ALT 30, Alkaline Phosphatase 75, Total Protein 7.7, Albumin 4.6, Globulin 3.1, Albumin/Globulin Ratio 1.5, Procalcitonin 0.046 11/23/23 18:17: Urine Color Yellow, Urine Appearance Clear, Urine pH 6.0, Ur Specific [place] >= 1.030, Urine Protein 1+ A, Urine Glucose (UA) Negative, Urine Ketones Trace, Urine Blood Negative, Urine Nitrate Negative, Urine Bilirubin Negative, Urine Urobilinogen 1.0, Ur Leukocyte Esterase Trace A, Urine RBC 3-5, Urine WBC 5-10, Ur Squamous Epith Cells 10-20, Urine Bacteria 4+, Urine Mucus 4+, Urine Yeast Occasional 11/23/23 18:19: SARS-CoV-2 (PCR) Not detected, Influenza A Untype (PCR) Not detected, Influenza Type B (PCR) Not detected 11/23/23 19:26: Stl Aeromonas (PCR) Not detected, Stl C. cayetanensis PCR Not detected, Stool Rotavirus (PCR) Not detected, Stl Adenov F 40/41 PCR Not detected, Stool Astrovirus (PCR) Not detected, Stool Campylobacter PCR Not detected, Stl C.difficile Tox PCR Not detected, Stool Cryptosporidium PCR Not detected, Stl E.coli Shiga Tox PCR Not detected, Stool E coli O157 PCR Not detected, Stl Enterotoxigenic E PCR Not detected, Stool EPEC (PCR) Not detected, Stool EAEC (PCR) Not detected, Stl E. histolytica PCR Not detected, Stool Giardia Lamblia PCR Not detected, Stool Salmonella PCR Not detected, Stool Sapovirus (PCR) Not detected, Stl P. shigelloides PCR Not detected, Stl Shigella/EIEC PCR Not detected, St Y.enterocolitica PCR Not detected, Stool Vibrio (PCR) Not detected, Stl Vibrio cholerae PCR Not detected, Stl Norovirus GI/GII PCR Not detected 11/24/23 06:03: WBC 5.5, RBC 3.89 L, Hgb 11.5 L D, Hct 34.9 L, MCV 89.9, MCH 29.4, MCHC 32.7, RDW 18.8 H, Plt Count 197 D, MPV 9.9, Neut % (Auto) 54.2, Lymph % (Auto) 33.5, [place] % (Auto) 8.6, Eos % (Auto) 2.7, Baso % (Auto) 1.1, Neut # (Auto) 3.0, Lymph # (Auto) 1.8, [place] # (Auto) 0.5, Eos # (Auto) 0.2, Baso # (Auto) 0.1, Sodium 142, Potassium 5.3 H D, Chloride 119 H, Carbon Dioxide 19 L, Anion Gap 9.3, BUN 9 D, Creatinine 1.10 H, Estimated Creat Clear 49, Estimated GFR 50 L, Est GFR ( Amer) 61 D, Glucose 81 D, Calcium 8.3 L, Magnesium 2.1, Total Bilirubin 0.6, AST 27 D, ALT 15 D, Alkaline Phosphatase 68, C-Reactive Protein 0.9, Total Protein 5.7 L D, Albumin 3.2 L D, Globulin 2.5, Albumin/Globulin Ratio 1.3 11/24/23 12:59: Sodium 141, Potassium 4.4, Chloride 114 H, Carbon Dioxide 21 L, Anion Gap 10.4, BUN 8, Creatinine 1.30 H, Estimated Creat Clear 42, Estimated GFR 42 L, Est GFR ( Amer) 50 L, Glucose 150 H D, Calcium 8.8, NT-Pro-B Natriuret Pep 150 H I & O for Last 24 hours: Intake & Output 11/21/23 11/22/23 11/23/23 11/24/23 23:59 23:59 23:59 23:59 Intake Total 0 / 0 Output Total 0 / 0 0 / 0 Balance 0 / 0 0 / 0 Weight 58.06 kg 58.06 kg Constitutional Constitutional: no acute distress, average body habitus, chronically ill appearing and cooperative *Routine HEENT Exam Head: Present normocephalic and atraumatic Eye: Present EOMI and PERRL ENT: Present mucous membranes moist *Routine Neck Exam Neck: Absent JVD *Routine Respiratory Exam Respiratory: Present crackles (fine in bases), normal respiratory effort and symmetric chest movement; Absent respiratory distress, rhonchi or wheezes *Routine Cardiovascular Exam Cardiovascular: Present RRR *Routine Abdominal Exam Abdominal: Present soft, normoactive bowel sounds and tenderness (mild in RLQ) *Routine Rectal Exam Patient deferred: visual exam *Routine Exam Patient deferred: external exam *Routine Extremities Exam Extremities: Absent cyanosis, clubbing or edema Comments: Prominent knuckles on hands, lateral deviation of fingers. Findings consistent with arthritis *Routine Skin Exam Skin: Present intact; Absent rash *Routine Neurological Exam Neurological: Present alert, oriented X3, vision grossly intact, hearing grossly intact and normal speech; Absent sensory deficit or motor deficit Routine Psychiatric Exam Psychiatric: Present normal affect, cooperative and good insight Results Data Completed and Pending Labs on day of discharge: Labs from last 24 hours 11/24/23 11/24/23 11/23/23 12:59 06:03 19:26 WBC 5.5 RBC 3.89 L Hgb 11.5 L D Hct 34.9 L MCV 89.9 MCH 29.4 MCHC 32.7 RDW 18.8 H Plt Count 197 D MPV 9.9 Neut % (Auto) 54.2 Lymph % (Auto) 33.5 [place] % (Auto) 8.6 Eos % (Auto) 2.7 Baso % (Auto) 1.1 Neut # (Auto) 3.0 Lymph # (Auto) 1.8 [place] # (Auto) 0.5 Eos # (Auto) 0.2 Baso # (Auto) 0.1 Sodium 141 142 Potassium 4.4 5.3 H D Chloride 114 H 119 H Carbon Dioxide 21 L 19 L Anion Gap 10.4 9.3 BUN 8 9 D Creatinine 1.30 H 1.10 H Estimated Creat Clear 42 49 Estimated GFR 42 L 50 L Est GFR ( Amer) 50 L 61 D Glucose 150 H D 81 D Lactate Calcium 8.8 8.3 L Magnesium 2.1 Total Bilirubin 0.6 AST 27 D ALT 15 D Alkaline Phosphatase 68 C-Reactive Protein 0.9 NT-Pro-B Natriuret Pep 150 H Total Protein 5.7 L D Albumin 3.2 L D Globulin 2.5 Albumin/Globulin Ratio 1.3 Procalcitonin Urine Color Urine Appearance Urine pH Ur Specific [place] Urine Protein Urine Glucose (UA) Urine Ketones Urine Blood Urine Nitrate Urine Bilirubin Urine Urobilinogen Ur Leukocyte Esterase Urine RBC Urine WBC Ur Squamous Epith Cells Urine Bacteria Urine Mucus Urine Yeast Stl Aeromonas (PCR) Not detected Stl C. cayetanensis PCR Not detected Stool Rotavirus (PCR) Not detected Stl Adenov F 40/41 PCR Not detected Stool Astrovirus (PCR) Not detected Stool Campylobacter PCR Not detected Stl C.difficile Tox PCR Not detected Stool Cryptosporidium PCR Not detected Stl E.coli Shiga Tox PCR Not detected Stool E coli O157 PCR Not detected Stl Enterotoxigenic E PCR Not detected Stool EPEC (PCR) Not detected Stool EAEC (PCR) Not detected Stl E. histolytica PCR Not detected Stool Giardia Lamblia PCR Not detected Stool Salmonella PCR Not detected Stool Sapovirus (PCR) Not detected Stl P. shigelloides PCR Not detected Stl Shigella/EIEC PCR Not detected St Y.enterocolitica PCR Not detected Stool Vibrio (PCR) Not detected Stl Vibrio cholerae PCR Not detected Stl Norovirus GI/GII PCR Not detected SARS-CoV-2 (PCR) Influenza A Untype (PCR) Influenza Type B (PCR) 11/23/23 11/23/23 11/23/23 18:19 18:17 18:06 WBC 6.5 RBC 4.69 Hgb 13.6 Hct 41.6 MCV 88.8 MCH 28.9 MCHC 32.6 RDW 19.0 H Plt Count 269 MPV 9.4 Neut % (Auto) 54.8 Lymph % (Auto) 35.0 [place] % (Auto) 7.6 Eos % (Auto) 1.5 Baso % (Auto) 1.1 Neut # (Auto) 3.6 Lymph # (Auto) 2.3 [place] # (Auto) 0.5 Eos # (Auto) 0.1 Baso # (Auto) 0.1 Sodium 140 Potassium 2.9 L* Chloride 105 Carbon Dioxide 27 Anion Gap 10.9 BUN 13 Creatinine 1.30 H Estimated Creat Clear 42 Estimated GFR 42 L Est GFR ( Amer) 50 L Glucose 138 H Lactate 1.7 Calcium 9.3 Magnesium 2.2 Total Bilirubin 0.6 AST 41 H ALT 30 Alkaline Phosphatase 75 C-Reactive Protein NT-Pro-B Natriuret Pep Total Protein 7.7 Albumin 4.6 Globulin 3.1 Albumin/Globulin Ratio 1.5 Procalcitonin 0.046 Urine Color Yellow Urine Appearance Clear Urine pH 6.0 Ur Specific [place] >= 1.030 Urine Protein 1+ A Urine Glucose (UA) Negative Urine Ketones Trace Urine Blood Negative Urine Nitrate Negative Urine Bilirubin Negative Urine Urobilinogen 1.0 Ur Leukocyte Esterase Trace A Urine RBC 3-5 Urine WBC 5-10 Ur Squamous Epith Cells 10-20 Urine Bacteria 4+ Urine Mucus 4+ Urine Yeast Occasional Stl Aeromonas (PCR) Stl C. cayetanensis PCR Stool Rotavirus (PCR) Stl Adenov F 40/41 PCR Stool Astrovirus (PCR) Stool Campylobacter PCR Stl C.difficile Tox PCR Stool Cryptosporidium PCR Stl E.coli Shiga Tox PCR Stool E coli O157 PCR Stl Enterotoxigenic E PCR Stool EPEC (PCR) Stool EAEC (PCR) Stl E. histolytica PCR Stool Giardia Lamblia PCR Stool Salmonella PCR Stool Sapovirus (PCR) Stl P. shigelloides PCR Stl Shigella/EIEC PCR St Y.enterocolitica PCR Stool Vibrio (PCR) Stl Vibrio cholerae PCR Stl Norovirus GI/GII PCR SARS-CoV-2 (PCR) Not detected Influenza A Untype (PCR) Not detected Influenza Type B (PCR) Not detected DS: Diagnosis Discharge Diagnosis (1) Acute colitis: Status: Acute Code(s): K52.9 - Noninfective gastroenteritis and colitis, unspecified (2) Hypokalemia: Status: Acute Code(s): E87.6 - Hypokalemia (3) Nausea & vomiting: Status: Acute Code(s): R11.2 - Nausea with vomiting, unspecified (4) Abdominal pain: Status: Acute Code(s): R10.9 - Unspecified abdominal pain (5) JAMISON (acute kidney injury): Status: Acute Code(s): N17.9 - Acute kidney failure, unspecified (6) Urinary tract infection: Status: Acute Code(s): N39.0 - Urinary tract infection, site not specified Qualifiers: Hematuria presence: with hematuria Urinary tract infection type: site unspecified Qualified Code(s): N39.0 - Urinary tract infection, site not specified; R31.9 - Hematuria, unspecified (7) Smoking greater than 30 pack years: Status: Acute Code(s): F17.210 - Nicotine dependence, cigarettes, uncomplicated (8) Rheumatoid arthritis: Status: Acute Code(s): M06.9 - Rheumatoid arthritis, unspecified Qualifiers: Rheumatoid arthritis location: unspecified site Rheumatoid factor presence: unspecified presence Qualified Code(s): M06.9 - Rheumatoid arthritis, unspecified Meds Home Medications and Allergies Home Medications ?Medication ?Instructions ?Recorded ?Confirmed ?Type adalimumab 40 mg/0.8 mL 40 mg SQ WEEKLY 07/16/21 11/23/23 History subcutaneous pen kit (Humira Pen) escitalopram oxalate 20 mg tablet 20 mg PO DAILY 07/16/21 11/23/23 History folic acid 1 mg tablet 1 mg PO DAILY 07/16/21 11/23/23 History hydroxychloroquine 200 mg tablet 200 mg PO DAILY 07/16/21 11/23/23 History famotidine 40 mg tablet 40 mg PO DAILY 07/17/21 11/23/23 History albuterol sulfate 2.5 mg/3 mL 2.5 mg inhalation TIDP PRN Wheezing 06/24/23 11/23/23 History (0.083 %) solution for nebulization alendronate 70 mg tablet 70 mg PO WEEKLY 06/24/23 11/23/23 History atorvastatin 40 mg tablet 40 mg PO HS 06/24/23 11/23/23 History clopidogrel 75 mg tablet 75 mg PO DAILY 06/24/23 11/23/23 History duloxetine 60 mg capsule,delayed 60 mg PO BID 06/24/23 11/23/23 History release fluticasone fur. 100 mcg-umeclid 1 inh inhalation DAILY 30 days #28 06/24/23 11/23/23 Rx 62.5 mcg-vilant 25 mcg ea inhalat.powder (Trelegy Ellipta) gabapentin 800 mg tablet 800 mg PO BID 06/24/23 11/23/23 History omeprazole 40 mg capsule,delayed 40 mg PO DAILY 06/24/23 11/23/23 History release prednisone 5 mg tablet 5 mg PO DAILYP PRN ARTHRITIS 06/24/23 11/23/23 History FLAREUP rimegepant 75 mg disintegrating 75 mg PO DAILYP PRN Migraine 06/24/23 11/23/23 History tablet (Nurtec ODT) Headache rivaroxaban 2.5 mg tablet (Xarelto) 2.5 mg PO BIDWMEAL 06/24/23 11/24/23 History terbinafine HCl 250 mg tablet 250 mg PO DAILY 06/24/23 11/23/23 History doxepin 25 mg capsule 25 mg PO HS 10/20/23 11/24/23 History mirtazapine 15 mg tablet 15 mg PO DAILY 10/20/23 11/23/23 History cyanocobalamin (vitamin B-12) 1,000 mcg IM MONTHLY 11/23/23 11/23/23 History 1,000 mcg/mL injection solution doxycycline hyclate 100 mg tablet 100 mg PO BID 11/23/23 11/23/23 History hydrocodone 10 mg-acetaminophen 0.5 tab PO BIDP PRN Moderate Pain 11/23/23 11/24/23 History 325 mg tablet (Scale Score 5-6) furosemide 20 mg tablet 20 mg PO DAILY 11/24/23 11/24/23 History levofloxacin 250 mg tablet 250 mg PO 1100 5 days #5 tabs 11/24/23 Rx potassium chloride 20 mEq 20 meq PO DAILY 11/24/23 11/24/23 History tablet,extended release(part/cryst) New Prescriptions to Start Prescriptions: levofloxacin Braulio Soto Allergies Allergy/AdvReac Type Severity Reaction Status Date / Time No Known Allergies Allergy Verified 10/11/23 14:44 Discharge Plan Disposition Patient Disposition: Home, Self-Care Condition: Good Follow up Plan Follow up with: Derik Jaimes II, MD [Staff Physician] - 12/07/23 11:30 am Prescriptions/Medication Reconciliation: New levofloxacin 250 mg Tablet 250 mg PO 1100 5 Days Qty: 5 0RF Continued folic acid 1 MG tablet 1 mg PO DAILY hydroxychloroquine 200 MG tablet 200 mg PO DAILY escitalopram oxalate 20 MG tablet 20 mg PO DAILY Humira Pen 40 MG/0.8 ML pen injector kit 40 mg SQ WEEKLY Rx Instructions: PATIENT TAKES ON MONDAYS famotidine 40 MG tablet 40 mg PO DAILY doxepin 25 mg capsule 25 mg PO HS mirtazapine 15 mg tablet 15 mg PO DAILY atorvastatin 40 mg tablet 40 mg PO HS alendronate 70 mg tablet 70 mg PO WEEKLY Rx Instructions: PATIENT TAKES ON FRIDAYS prednisone 5 mg tablet 5 mg PO DAILYP PRN (Reason: ARTHRITIS FLAREUP) Rx Instructions: PATIENT STATES SHE ONLY TAKES THIS DAILY NEEDED FOR AN ARTHRITIS FLARE. clopidogrel 75 mg tablet 75 mg PO DAILY omeprazole 40 mg capsule,delayed release(DR/EC) 40 mg PO DAILY terbinafine HCl 250 mg tablet 250 mg PO DAILY gabapentin 800 mg tablet 800 mg PO BID Xarelto 2.5 mg tablet 2.5 mg PO BIDWMEAL Nurtec ODT 75 mg tablet,disintegrating 75 mg PO DAILYP PRN (Reason: Migraine Headache) albuterol sulfate 2.5 MG/NEB solution for nebulization 2.5 mg inhalation TIDP PRN (Reason: Wheezing) duloxetine 60 mg capsule,delayed release(DR/EC) 60 mg PO BID Trelegy Ellipta 100-62.5-25 mcg Blister With Device 1 inh inhalation DAILY 30 Days Qty: 28 0RF hydrocodone-acetaminophen 10-325 mg tablet 0.5 tab PO BIDP PRN (Reason: Moderate Pain (Scale Score 5-6)) cyanocobalamin (vitamin B-12) 1,000 mcg/mL solution 1,000 mcg IM MONTHLY doxycycline hyclate 100 mg tablet 100 mg PO BID potassium chloride 20 mEq tablet,ER particles/crystals 20 meq PO DAILY Held furosemide 20 mg tablet 20 mg PO DAILY Hold Instructions: pending follow-up with PCP and repeat labs Problem Reconciliation Problems Reviewed?: Yes Patient Discharge Instructions ACTIVITY: Continue current activity DIET: continue same diet Patient Instructions: DI for Diarrhea and Traveler's Diarrhea -- Adult, DI for Nausea -- Adult, DI for Colitis Print Language: Czech Providers Primary Care Provider: Patsy Hair [place] Provider: Braulio Soto Attending Provider: Braulio Soto
--- NOTE | 2023-11-27 13:47 | CARE MANAGER ---
Called and spoke with patient regarding recent discharge. Patient stated that she is doing well, was aware of her scheduled f/u appt and has made changes to medication ordered at discharge. No concerns/questions voiced at time of call.
== END 2023-11-24 17:13 | disposition home or self-care (01) ==
LOC: ER 21:26 → 2ND 22:25
PROVIDERS: Nurse Practitioner Family; Physician Assistant; Admitting Provider Internal Medicine Adolescent Medicine; Emergency Provider Student in an Organized Health Care Education/Training Program; PCP Family Medicine; Visit Provider Internal Medicine Adolescent Medicine
DX: K52.9 Noninfective gastroenteritis and colitis, unspecified (principal); E87.6 Hypokalemia; R11.2 Nausea with vomiting, unspecified; N17.9 Acute kidney failure, unspecified; N39.0 Urinary tract infection, site not specified; F17.210 Nicotine dependence, cigarettes, uncomplicated; R31.9 Hematuria, unspecified; M06.9 Rheumatoid arthritis, unspecified; D84.9 Immunodeficiency, unspecified; J44.9 Chronic obstructive pulmonary disease, unspecified; Z79.899 Other long term (current) drug therapy
CPT/HCPCS: 36415; 74177; 80048; 80053; 81001; 83605; 83735; 83880; 84145; 85025; 86140; 87086; 87088; 87186; 87507; 87636; 93005; 99285; G0378; J2405; J7512; Q9967

== ENCOUNTER 2023-12-05 12:14 | Emergency (ER) | payer MEDICARE, SELFPAY ==
--- NOTE | 2023-12-05 12:28 | XR_ITS ---
PROCEDURE INFORMATION: Exam: XR Chest Exam date and time: 12/05/2023 1:11 PM Age: 63 years old Clinical indication: Cough and shortness of breath; Additional info: SOA, cough TECHNIQUE: Imaging protocol: Radiologic exam of the chest. Views: 2 views. COMPARISON: CT ABDOMEN PELVIS W CON 11/23/2023 7:09 PM FINDINGS: Lungs: There are subtle patchy opacities in the peripheral bilateral lower lungs. Lungs are otherwise clear. Pleural spaces: Unremarkable. No pleural effusion. No pneumothorax. Heart/Mediastinum: Unremarkable. No cardiomegaly. Bones/joints: Dextroscoliosis of the thoracic spine. IMPRESSION: There are subtle patchy opacities in the peripheral bilateral lower lungs. May be infectious or inflammatory.
--- NOTE | 2023-12-05 12:29 | HMH.EDGENADL ---
Discharge Plan Disposition Patient Disposition: Home, Self-Care Prescriptions Prescriptions: New azithromycin [Zithromax Z-Paolo] 250 mg tablet See Rx Instructions .ROUTE .COMPLEX Qty: 6 0RF Rx Instructions: For 250 mg dose pack: take 500 mg today (day 1), then 250 mg for 4 days (days 2-5) prednisone 50 mg tablet 50 mg PO DAILY 5 Days Qty: 5 0RF No Action folic acid 1 MG tablet 1 mg PO DAILY hydroxychloroquine 200 MG tablet 200 mg PO DAILY escitalopram oxalate 20 MG tablet 20 mg PO DAILY Humira Pen 40 MG/0.8 ML pen injector kit 40 mg SQ WEEKLY Rx Instructions: PATIENT TAKES ON MONDAYS famotidine 40 MG tablet 40 mg PO DAILY doxepin 25 mg capsule 25 mg PO HS mirtazapine 15 mg tablet 15 mg PO DAILY atorvastatin 40 mg tablet 40 mg PO HS alendronate 70 mg tablet 70 mg PO WEEKLY Rx Instructions: PATIENT TAKES ON FRIDAYS prednisone 5 mg tablet 5 mg PO DAILYP PRN (Reason: ARTHRITIS FLAREUP) Rx Instructions: PATIENT STATES SHE ONLY TAKES THIS DAILY NEEDED FOR AN ARTHRITIS FLARE. clopidogrel 75 mg tablet 75 mg PO DAILY omeprazole 40 mg capsule,delayed release(DR/EC) 40 mg PO DAILY terbinafine HCl 250 mg tablet 250 mg PO DAILY gabapentin 800 mg tablet 800 mg PO BID Xarelto 2.5 mg tablet 2.5 mg PO BIDWMEAL Nurtec ODT 75 mg tablet,disintegrating 75 mg PO DAILYP PRN (Reason: Migraine Headache) albuterol sulfate 2.5 MG/NEB solution for nebulization 2.5 mg inhalation TIDP PRN (Reason: Wheezing) duloxetine 60 mg capsule,delayed release(DR/EC) 60 mg PO BID Trelegy Ellipta 100-62.5-25 mcg Blister With Device 1 inh inhalation DAILY 30 Days Qty: 28 0RF hydrocodone-acetaminophen 10-325 mg tablet 0.5 tab PO BIDP PRN (Reason: Moderate Pain (Scale Score 5-6)) cyanocobalamin (vitamin B-12) 1,000 mcg/mL solution 1,000 mcg IM MONTHLY doxycycline hyclate 100 mg tablet 100 mg PO BID potassium chloride 20 mEq tablet,ER particles/crystals 20 meq PO DAILY furosemide 20 mg tablet 20 mg PO DAILY levofloxacin 250 mg Tablet 250 mg PO 1100 5 Days Qty: 5 0RF Referrals Follow up/Referrals: Patsy Hair [Primary Care Provider] - See instructions Activity Restrictions/Add. Instructions Additional Instructions/Restrictions: Take prednisone as prescribed, beginning tomorrow. Take azithromycin as prescribed. Use albuterol inhaler as needed. Please return the emerged part with any new, concerning, or worsening symptoms including but not limited to difficulty breathing, worsening shortness of breath. Clinical Impressions Clinical Impression: Shortness of breath, Acute exacerbation of chronic obstructive pulmonary disease (COPD) Print Language Print Language: Portuguese Discharge ED Provider: Armin Gramajo General Adult HPI General Chief complaint: Upper Respiratory Infection Stated complaint: soa, cough, congestion Time Seen by Provider: 12/05/23 12:17 Mode of Arrival: Ambulatory Source of Information: Patient Limitations: No Limitations History of Present Illness HPI narrative: This is a 63-year-old female with a history of COPD and rheumatoid arthritis who presents with cough, congestion, shortness of breath for the last 2 days. Reports nonproductive cough. Denies fever. Denies history of heart failure. Uses albuterol treatments as needed. Related Data Home Medications ?Medication ?Instructions ?Recorded ?Confirmed adalimumab 40 mg/0.8 mL 40 mg SQ WEEKLY 07/16/21 11/23/23 subcutaneous pen kit (Humira Pen) escitalopram oxalate 20 mg tablet 20 mg PO DAILY 07/16/21 11/23/23 folic acid 1 mg tablet 1 mg PO DAILY 07/16/21 11/23/23 hydroxychloroquine 200 mg tablet 200 mg PO DAILY 07/16/21 11/23/23 famotidine 40 mg tablet 40 mg PO DAILY 07/17/21 11/23/23 albuterol sulfate 2.5 mg/3 mL 2.5 mg inhalation TIDP PRN Wheezing 06/24/23 11/23/23 (0.083 %) solution for nebulization alendronate 70 mg tablet 70 mg PO WEEKLY 06/24/23 11/23/23 atorvastatin 40 mg tablet 40 mg PO HS 06/24/23 11/23/23 clopidogrel 75 mg tablet 75 mg PO DAILY 06/24/23 11/23/23 duloxetine 60 mg capsule,delayed 60 mg PO BID 06/24/23 11/23/23 release gabapentin 800 mg tablet 800 mg PO BID 06/24/23 11/23/23 omeprazole 40 mg capsule,delayed 40 mg PO DAILY 06/24/23 11/23/23 release prednisone 5 mg tablet 5 mg PO DAILYP PRN ARTHRITIS 06/24/23 11/23/23 FLAREUP rimegepant 75 mg disintegrating 75 mg PO DAILYP PRN Migraine 06/24/23 11/23/23 tablet (Nurtec ODT) Headache rivaroxaban 2.5 mg tablet (Xarelto) 2.5 mg PO BIDWMEAL 06/24/23 11/24/23 terbinafine HCl 250 mg tablet 250 mg PO DAILY 06/24/23 11/23/23 doxepin 25 mg capsule 25 mg PO HS 10/20/23 11/24/23 mirtazapine 15 mg tablet 15 mg PO DAILY 10/20/23 11/23/23 cyanocobalamin (vitamin B-12) 1,000 mcg IM MONTHLY 11/23/23 11/23/23 1,000 mcg/mL injection solution doxycycline hyclate 100 mg tablet 100 mg PO BID 11/23/23 11/23/23 hydrocodone 10 mg-acetaminophen 0.5 tab PO BIDP PRN Moderate Pain 11/23/23 11/24/23 325 mg tablet (Scale Score 5-6) furosemide 20 mg tablet 20 mg PO DAILY 11/24/23 11/24/23 potassium chloride 20 mEq 20 meq PO DAILY 11/24/23 11/24/23 tablet,extended release(part/cryst) Previous Rx's ?Medication ?Instructions ?Recorded fluticasone fur. 100 mcg-umeclid 1 inh inhalation DAILY 30 days #28 06/24/23 62.5 mcg-vilant 25 mcg ea inhalat.powder (Trelegy Ellipta) levofloxacin 250 mg tablet 250 mg PO 1100 5 days #5 tabs 11/24/23 azithromycin 250 mg tablet See Rx Instructions PO .COMPLEX #6 12/05/23 (Zithromax Z-Paolo) tabs prednisone 50 mg tablet 50 mg PO DAILY 5 days #5 tabs 12/05/23 Allergies Allergy/AdvReac Type Severity Reaction Status Date / Time No Known Allergies Allergy Verified 12/05/23 12:42 [facility] Disclaimer: The information contained in this section may have been updated after the patient was seen, as this information can be updated by other users. Medical History Acute exacerbation of chronic obstructive pulmonary disease Fibrosis of lung Smoking greater than 30 pack years Pulmonary emphysema ILD (interstitial lung disease) HSV-1 infection Urinary tract infection Pneumonia Urinary incontinence Osteoarthritis Rheumatoid arthritis History of back pain Surgical History History of hip replacement History of colonoscopy History of left hip replacement Family History Other Family history of COPD (chronic obstructive pulmonary disease) Family history of arthritis Family history of cancer Family history of diabetes mellitus type I Family history of hypertension Social History Smoking Status: Current every day smoker tobacco type: cigarettes packs per day: 1 alcohol intake: former substance use type: denies use current occupational status: unemployed Travel in the last 8 weeks: None household members: spouse and children housing: apartment caffeine: Yes Other Medical History Have you received the Flu Vaccine for this season: No Have you received the Pneumonia Vaccine: No ROS Obtained: Yes All systems reviewed & no additional complaints except as documented Physical Exam General General appearance: alert and in no apparent distress Eye Eye exam: Present normal appearance, PERRL and EOMI Respiratory Respiratory exam: Present normal lung sounds bilaterally, wheezes (Scattered, bilateral) and other (Bibasilar crackles); Absent respiratory distress Cardiovascular Cardiovascular exam: Present regular rate and normal rhythm Abdominal Exam Abdominal exam: Present soft and distention; Absent tenderness, guarding or rebound Extremities Exam Extremities exam: Present normal inspection Neurological Exam Neurological exam: Present alert and oriented X3 Skin Skin exam: Present warm and dry Medical Decision Making Medical Records Medical records reviewed: Yes I reviewed the patient's medical records. Screening: Per USPSTF and CDC recommendations, given the prevalence of disease in our region, it is our hospital?s policy to screen for HIV and viral Hepatitis for all patients aged 18 and over and those with ongoing risk factors. Tin Inquiry Pt receiving controlled substance: No Vital Signs: 12/05/23 12:30 12/05/23 12:37 12/05/23 13:00 Temperature 97.8 F Temperature Source Oral Pulse Rate 92 H 69 Pulse Rate [Left] 96 H Respiratory Rate 16 Blood Pressure 147/95 H 120/77 Blood Pressure [Right Arm] 137/95 H Blood Pressure Mean Blood Pressure Mean [Right Arm] 109 Blood Pressure Source [Right Arm] Automatic Cuff Blood Pressure Position [Right Arm] Sitting 02 Sat by Pulse Oximetry 94 L 95 99 Oxygen Delivery Method Room Air Room Air Room Air 12/05/23 13:30 12/05/23 14:00 12/05/23 14:27 Temperature 98.3 F Temperature Source Pulse Rate 95 H 101 H 77 Pulse Rate [Left] Respiratory Rate 18 Blood Pressure 136/80 126/81 126/81 Blood Pressure [Right Arm] Blood Pressure Mean 91 Blood Pressure Mean [Right Arm] Blood Pressure Source [Right Arm] Blood Pressure Position [Right Arm] 02 Sat by Pulse Oximetry 95 91 L Oxygen Delivery Method Room Air Lab Data Lab Results 12/05/23 12:31: WBC 5.6, RBC 4.03 L, Hgb 11.5 L, Hct 36.0 L, MCV 89.4, MCH 28.6, MCHC 32.0, RDW 18.9 H, Plt Count 273, MPV 10.2, Neut % (Auto) 54.0, Lymph % (Auto) 33.8, Fannin % (Auto) 7.8, Eos % (Auto) 3.8, Baso % (Auto) 0.7, Neut # (Auto) 3.0, Lymph # (Auto) 1.9, Fannin # (Auto) 0.4, Eos # (Auto) 0.2, Baso # (Auto) 0.0, Sodium 141, Potassium 3.6, Chloride 109 H, Carbon Dioxide 31 H, Anion Gap 4.6 L, BUN 9, Creatinine 1.10 H, Estimated Creat Clear 46, Estimated GFR 50 L, Est GFR ( Amer) 61, Glucose 91, Calcium 8.5, Total Bilirubin 0.5, AST 33, ALT 18, Alkaline Phosphatase 72, NT-Pro-B Natriuret Pep 592 H, Total Protein 6.3, Albumin 3.6, Globulin 2.7, Albumin/Globulin Ratio 1.3 12/05/23 12:37: HIV 1&2 Antibody Rapid Nonreactive 12/05/23 12:45: VBG pH 7.44 H, VBG pCO2 42.0, VBG pO2 70.0 H, VBG HCO3 27.7, VBG Total CO2 29.0 H, VBG O2 Saturation 93.5 H, VBG Base Excess 3.5 H, VBG Lactic Acid 1.5 12/05/23 12:31 12/05/23 12:31 Orders (Tests/Meds): ED MEDICATIONS Discontinued Medications Generic Name Dose Route Start Last Admin Trade Name Oscar PRN Reason Stop Dose Admin Albuterol/Ipratropium 9 ml 12/05/23 12:28 12/05/23 12:43 Ipratropium/Albuterol 3 Ml Neb IH 12/05/23 12:29 9 ml ONCE ONE Administration Methylprednisolone Sodium Succinate 125 mg 12/05/23 12:28 12/05/23 12:34 Methylprednisolone Sod Succ 125mg Vial IV 12/05/23 12:29 125 mg ONCE ONE Administration ORDERS Category Date Time Status Chest XR 2 view (NOT portable) [XR chest 2V] Stat Exams 12/05/23 12:28 Completed BNP [NT Pro Brain Natriuretic Pep.] Stat Lab 12/05/23 12:31 Completed CBC w/Auto Diff [Complete Blood Count Auto Diff] Stat Lab 12/05/23 12:31 Completed CMP [Comprehensive Metabolic Panel] Stat Lab 12/05/23 12:31 Completed HIV (1&2) Antibody Rapid Stat Lab 12/05/23 12:37 Completed Hep C Ab with Reflex to RNA Stat Lab 12/05/23 12:37 Received VBG [Venous Blood Gas] Stat RT 12/05/23 12:45 Completed ECG Data Tracing #1: I reviewed this ECG and interpreted as documented below: Normal sinus rhythm at a rate of 83, QTc 429, normal axis, no STEMI Medical Decision Narrative: In summary, this 63-year-old female with COPD and rheumatoid arthritis presents to the emergency department today with shortness of breath, cough, and congestion for the last 2 days. On initial evaluation patient is afebrile, hemodynamically stable, nontoxic-appearing, satting 94% on room air. Differential diagnosis includes but is not limited to COPD exacerbation, pneumonia, viral illness, CHF. Based on these concerns, I ordered CBC, CMP, BNP, two-view chest x-ray. EKG was independently interpreted by me as noted above. Patient received DuoNebs x 3 and 125 Solu-Medrol for treatment. Labs personally reviewed demonstrate no evidence of respiratory acidosis or CO2 retention on VBG, chronic anemia on CBC with hemoglobin of 11.5, mildly elevated BNP at 592 which could also be chronically elevated with patient's COPD, baseline renal function with a creatinine of 1.1. XR personally interpreted demonstrates patchy opacities in bilateral lower lungs which is likely consistent with viral etiology of patient's COPD exacerbation versus atypical infection. On reassessment patient was in stable condition with improvement in symptoms satting 95% on room air. Appropriate for discharge and outpatient management of COPD exacerbation. Was prescribed 5-day course of prednisone and azithromycin. She is to use albuterol at home as needed. Critical Care Critical Care Time Critical Care Time: No
[2023-12-05 12:30] VITALS: BP 147/95; PULSE 92; O2SAT 94
[2023-12-05] MEDS: METHYLPREDNISOLONE SOD SUCC 125MG VIAL 125 MG IV (12:34)
[2023-12-05 12:37] VITALS: BP 137/95; PULSE 96; RESP 16; TEMP 36.6; O2SAT 95; BMI 26.9
--- NOTE | 2023-12-05 12:38 | ECG_ITS ---
APPROVED REPORT Exam: Resting ECG HR:83 bpm ECG Measurements Heart Rate 83 AXES TX 153 P 59 QRSd 74 QRS 63 QT 389 T 70 QTc 429 Conclusion Sinus rhythm Electronically signed by : ETHAN DOVE, 12/05/2023 20:54:33
[2023-12-05] MEDS: IPRATROPIUM/ALBUTEROL 3 ML NEB 9 ML IH (12:43)
[2023-12-05 12:49] LABS: Lactate Venous 1.5 mmol/L (0.4-2.0); VBG Base Excess 3.5 mmol/L (-2.4-2.3); VBG HCO3 27.7 mmol/L (23-30); VBG Oxygen Saturation 93.5 % (50-70); VBG PH 7.44 mmol/L (7.31-7.41)
[2023-12-05 12:50] LABS: Basophils % 0.7 % (0.1-2.0); Eosinophils # 0.2 K/mm3 (0.0-0.4); Eosinophils % 3.8 % (0.1-12.0); Hemoglobin 11.5 g/dL (12.2-16.2); Lymphocytes # 1.9 K/mm3 (0.7-4.5); Lymphocytes % 33.8 % (10-50); Mean Corpuscular Hemoglobin 28.6 pg (27.0-31.2); Mean Corpuscular Volume 89.4 fl (81-99); Mean Platelet Volume 10.2 fl (7.4-10.4); Monocytes # 0.4 K/mm3 (0.1-1.0); Monocytes % 7.8 % (1.7-9.3); Platelet Count 273 K/mm3 (142-424); Red Blood Count 4.03 M/mm3 (4.20-5.40); Red Cell Distribution Width 18.9 % (11.5-17.5); White Blood Count 5.6 K/mm3 (4.8-10.8)
[2023-12-05 13:00] VITALS: BP 120/77; PULSE 69; O2SAT 99
[2023-12-05 13:01] LABS: Alanine Aminotransferase 18 U/L (12-78); Albumin Level 3.6 g/dl (3.5-5.0); Albumin/Globulin Ratio 1.3 (1.1-1.8); Alkaline Phosphatase 72 U/L (38-126); Anion Gap 4.6 mEq/L (5-15); Aspartate Amino Transferase 33 U/L (14-36); Bilirubin,Total 0.5 mg/dl (0.2-1.3); Blood Urea Nitrogen 9 mg/dl (7-17); Calcium 8.5 mg/dl (8.4-10.2); Carbon Dioxide 31 mmol/L (22.0-30.0); Chloride 109 mmol/L (98-107); Creatinine Clearance Estimated 46 mL/min (50-200); Estimated Glomerular Filt Rate 50 ml/min (>60); GFR (African American) 61 ML/MIN (>60); Globulin 2.7 g/dL (1.3-3.2); Glucose 91 mg/dl (74-100); Potassium 3.6 mmoL/L (3.5-5.1); Sodium 141 mmol/L (136-145); Total Protein,Serum 6.3 g/dl (6.3-8.2)
[2023-12-05 13:10] LABS: NT Pro Brain Natriuretic Pep. 592 pg/mL (0-125)
[2023-12-05 13:30] VITALS: BP 136/80; PULSE 95; O2SAT 95
[2023-12-05 13:55] LABS: HIV (1&2) Antibody Rapid NONREACTIVE (NONREACTIVE)
[2023-12-05 14:00] VITALS: BP 126/81; PULSE 101; O2SAT 91
[2023-12-05 14:27] VITALS: BP 126/81; PULSE 77; RESP 18; TEMP 36.8; O2SAT 97
[2023-12-06 09:20] LABS: HCV Ab Non Reactive (Non Reactive)
== END 2023-12-05 14:28 | disposition home or self-care (01) ==
PROVIDERS: Emergency Provider Student in an Organized Health Care Education/Training Program; PCP Family Medicine
DX: J44.1 Chronic obstructive pulmonary disease with (acute) exacerbation (principal); R05.9 Cough, unspecified; R09.81 Nasal congestion; R06.02 Shortness of breath
CPT/HCPCS: 71046; 80053; 82803; 83880; 85025; 86803; 87389; 93005; 96374; 99284; J2919; J7620

== ENCOUNTER 2023-12-13 17:25 | Emergency (ER) | payer MEDICARE, OTHER, SELFPAY ==
[2023-12-13 17:47] VITALS: BP 129/84; PULSE 105; RESP 16; TEMP 36.7; O2SAT 100; BMI 26.9
[2023-12-13 18:00] VITALS: BP 108/81; PULSE 78; O2SAT 96
[2023-12-13 18:08] LABS: Coronavirus 19, PCR Not Detected (NotDetected); Influenza A, PCR Not Detected (NotDetected); Influenza B, PCR Not Detected (NotDetected)
--- NOTE | 2023-12-13 18:09 | XR_ITS ---
PROCEDURE INFORMATION: Exam: XR Chest Exam date and time: 12/13/2023 6:31 PM Age: 63 years old Clinical indication: Cough and shortness of breath; Additional info: Cough, SOA TECHNIQUE: Imaging protocol: Radiologic exam of the chest. Views: 1 view. COMPARISON: CR Chest 12/05/2023 1:11 PM FINDINGS: Lungs: Unremarkable. No consolidation. Pleural spaces: Unremarkable. No pleural effusion. No pneumothorax. Heart/Mediastinum: Unremarkable. No cardiomegaly. Bones/joints: Unremarkable. IMPRESSION: Stable chest x-ray with no acute disease.
--- NOTE | 2023-12-13 18:12 | HMH.EDGENADL ---
Discharge Plan Disposition Patient Disposition: Home, Self-Care Condition: Good Prescriptions Prescriptions: New ondansetron 4 mg tablet,disintegrating 4 mg PO Q8H PRN (Reason: nausea and vomiting) 4 Days Qty: 12 0RF tcihzawynxejfxb-slfleecta-WO [Bromfed DM] 2-30-10 mg/5 mL syrup 5 ml PO Q6H PRN (Reason: cold symptoms) Qty: 118 0RF No Action folic acid 1 MG tablet 1 mg PO DAILY hydroxychloroquine 200 MG tablet 200 mg PO DAILY escitalopram oxalate 20 MG tablet 20 mg PO DAILY Humira Pen 40 MG/0.8 ML pen injector kit 40 mg SQ WEEKLY Rx Instructions: PATIENT TAKES ON MONDAYS famotidine 40 MG tablet 40 mg PO DAILY doxepin 25 mg capsule 25 mg PO HS mirtazapine 15 mg tablet 15 mg PO DAILY azithromycin [Zithromax Z-Paolo] 250 mg tablet See Rx Instructions .ROUTE .COMPLEX Qty: 6 0RF Rx Instructions: For 250 mg dose pack: take 500 mg today (day 1), then 250 mg for 4 days (days 2-5) prednisone 50 mg tablet 50 mg PO DAILY 5 Days Qty: 5 0RF atorvastatin 40 mg tablet 40 mg PO HS alendronate 70 mg tablet 70 mg PO WEEKLY Rx Instructions: PATIENT TAKES ON FRIDAYS prednisone 5 mg tablet 5 mg PO DAILYP PRN (Reason: ARTHRITIS FLAREUP) Rx Instructions: PATIENT STATES SHE ONLY TAKES THIS DAILY NEEDED FOR AN ARTHRITIS FLARE. clopidogrel 75 mg tablet 75 mg PO DAILY omeprazole 40 mg capsule,delayed release(DR/EC) 40 mg PO DAILY terbinafine HCl 250 mg tablet 250 mg PO DAILY gabapentin 800 mg tablet 800 mg PO BID Xarelto 2.5 mg tablet 2.5 mg PO BIDWMEAL Nurtec ODT 75 mg tablet,disintegrating 75 mg PO DAILYP PRN (Reason: Migraine Headache) albuterol sulfate 2.5 MG/NEB solution for nebulization 2.5 mg inhalation TIDP PRN (Reason: Wheezing) duloxetine 60 mg capsule,delayed release(DR/EC) 60 mg PO BID Trelegy Ellipta 100-62.5-25 mcg Blister With Device 1 inh inhalation DAILY 30 Days Qty: 28 0RF hydrocodone-acetaminophen 10-325 mg tablet 0.5 tab PO BIDP PRN (Reason: Moderate Pain (Scale Score 5-6)) cyanocobalamin (vitamin B-12) 1,000 mcg/mL solution 1,000 mcg IM MONTHLY doxycycline hyclate 100 mg tablet 100 mg PO BID potassium chloride 20 mEq tablet,ER particles/crystals 20 meq PO DAILY furosemide 20 mg tablet 20 mg PO DAILY levofloxacin 250 mg Tablet 250 mg PO 1100 5 Days Qty: 5 0RF Referrals Follow up/Referrals: Patsy Hair [Primary Care Provider] - See instructions Activity Restrictions/Add. Instructions Additional Instructions/Restrictions: You were evaluated in the emergency department today. At this time, we feel that you likely have a viral infection causing your symptoms. At this time, your labs are reassuring, your x-ray does not show any big pneumonia, and your lungs sound good and clear. Please keep an eye on symptoms as an outpatient and follow-up very closely with your primary care provider as well as your chemist intern, as you are high risk for developing pneumonia/COPD exacerbation given your history. 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 You may also take Tylenol and ibuprofen every 4-6 hours at home as needed for pain/fever. Make sure you stay hydrated. Return to the emergency department for new or worsening symptoms. Clinical Impressions Clinical Impression: Acute viral syndrome Instructions Patient Instructions: DI for Diarrhea and Traveler's Diarrhea -- Adult, DI for Viral Syndrome, DI for Nausea -- Adult Print Language Print Language: Icelandic Discharge ED Provider: Ana Jeronimo General Adult HPI General Chief complaint: Nausea/Vomiting/Diarrhea Stated complaint: nausea,headache,vomiting Time Seen by Provider: 12/13/23 17:48 Mode of Arrival: Wheelchair Source of Information: Patient and Relative Limitations: No Limitations Description of Symptoms (Recalled from ER Triage Doc. by RN): Pt. presents to the ED with complaints of diarrhea, chills, body aches, cough, congestion, and shortness of air for 2 days. She states she was exposed to covid last week. Denies fever or vomiting. History of Present Illness HPI narrative: This patient is a 63-year-old female with a history of tobacco dependence, pulmonary fibrosis, rheumatoid arthritis presented to the emergency department for evaluation with concern for chills, body aches, headache, sore throat, cough, congestion, shortness of breath, and nonbloody diarrhea for the last 2 days. She notes she was exposed to COVID last week. No fevers or vomiting. She does complain of some epigastric/chest pain on review of systems. She has not tried any medications at home for symptoms. No other concerns noted at this time. Related Data Home Medications ?Medication ?Instructions ?Recorded ?Confirmed adalimumab 40 mg/0.8 mL 40 mg SQ WEEKLY 07/16/21 11/23/23 subcutaneous pen kit (Humira Pen) escitalopram oxalate 20 mg tablet 20 mg PO DAILY 07/16/21 11/23/23 folic acid 1 mg tablet 1 mg PO DAILY 07/16/21 11/23/23 hydroxychloroquine 200 mg tablet 200 mg PO DAILY 07/16/21 11/23/23 famotidine 40 mg tablet 40 mg PO DAILY 07/17/21 11/23/23 albuterol sulfate 2.5 mg/3 mL 2.5 mg inhalation TIDP PRN Wheezing 06/24/23 11/23/23 (0.083 %) solution for nebulization alendronate 70 mg tablet 70 mg PO WEEKLY 06/24/23 11/23/23 atorvastatin 40 mg tablet 40 mg PO HS 06/24/23 11/23/23 clopidogrel 75 mg tablet 75 mg PO DAILY 06/24/23 11/23/23 duloxetine 60 mg capsule,delayed 60 mg PO BID 06/24/23 11/23/23 release gabapentin 800 mg tablet 800 mg PO BID 06/24/23 11/23/23 omeprazole 40 mg capsule,delayed 40 mg PO DAILY 06/24/23 11/23/23 release prednisone 5 mg tablet 5 mg PO DAILYP PRN ARTHRITIS 06/24/23 11/23/23 FLAREUP rimegepant 75 mg disintegrating 75 mg PO DAILYP PRN Migraine 06/24/23 11/23/23 tablet (Nurtec ODT) Headache rivaroxaban 2.5 mg tablet (Xarelto) 2.5 mg PO BIDWMEAL 06/24/23 11/24/23 terbinafine HCl 250 mg tablet 250 mg PO DAILY 06/24/23 11/23/23 doxepin 25 mg capsule 25 mg PO HS 10/20/23 11/24/23 mirtazapine 15 mg tablet 15 mg PO DAILY 10/20/23 11/23/23 cyanocobalamin (vitamin B-12) 1,000 mcg IM MONTHLY 11/23/23 11/23/23 1,000 mcg/mL injection solution doxycycline hyclate 100 mg tablet 100 mg PO BID 11/23/23 11/23/23 hydrocodone 10 mg-acetaminophen 0.5 tab PO BIDP PRN Moderate Pain 11/23/23 11/24/23 325 mg tablet (Scale Score 5-6) furosemide 20 mg tablet 20 mg PO DAILY 11/24/23 11/24/23 potassium chloride 20 mEq 20 meq PO DAILY 11/24/23 11/24/23 tablet,extended release(part/cryst) Previous Rx's ?Medication ?Instructions ?Recorded fluticasone fur. 100 mcg-umeclid 1 inh inhalation DAILY 30 days #28 06/24/23 62.5 mcg-vilant 25 mcg ea inhalat.powder (Trelegy Ellipta) levofloxacin 250 mg tablet 250 mg PO 1100 5 days #5 tabs 11/24/23 azithromycin 250 mg tablet See Rx Instructions PO .COMPLEX #6 12/05/23 (Zithromax Z-Paolo) tabs prednisone 50 mg tablet 50 mg PO DAILY 5 days #5 tabs 12/05/23 fxanyezpmegampo-kotjdfjzqgtzsgw-QK 5 ml PO Q6H PRN cold symptoms #118 12/13/23 2 mg-30 mg-10 mg/5 mL oral syrup mL (Bromfed DM) ondansetron 4 mg disintegrating 4 mg PO Q8H PRN nausea and 12/13/23 tablet vomiting 4 days #12 tabs Allergies Allergy/AdvReac Type Severity Reaction Status Date / Time No Known Allergies Allergy Verified 12/05/23 12:42 [facility] Disclaimer: The information contained in this section may have been updated after the patient was seen, as this information can be updated by other users. Medical History Acute exacerbation of chronic obstructive pulmonary disease Fibrosis of lung Smoking greater than 30 pack years Pulmonary emphysema ILD (interstitial lung disease) HSV-1 infection Urinary tract infection Pneumonia Urinary incontinence Osteoarthritis Rheumatoid arthritis History of back pain Surgical History History of hip replacement History of colonoscopy History of left hip replacement Family History Other Family history of COPD (chronic obstructive pulmonary disease) Family history of arthritis Family history of cancer Family history of diabetes mellitus type I Family history of hypertension Social History Smoking Status: Current every day smoker tobacco type: cigarettes packs per day: 1 alcohol intake: former substance use type: denies use current occupational status: unemployed Travel in the last 8 weeks: None household members: spouse and children housing: apartment caffeine: Yes Other Medical History Have you received the Flu Vaccine for this season: No Have you received the Pneumonia Vaccine: No ROS Obtained: Yes All systems reviewed & no additional complaints except as documented Physical Exam General General appearance: alert and in no apparent distress Head Head exam: atraumatic and normocephalic Eye Eye exam: Present normal appearance, PERRL and EOMI ENT ENT exam: Present normal exam, normal oropharynx, mucous membranes moist and normal external ear exam Neck Neck exam: Present normal inspection, full ROM and trachea midline; Absent tenderness Chest Chest inspection: Present normal inspection and symmetric chest wall rise; Absent tenderness Respiratory Respiratory exam: Present normal lung sounds bilaterally; Absent respiratory distress, wheezes, stridor or accessory muscle use Cardiovascular Cardiovascular exam: Present regular rate and normal rhythm Abdominal Exam Abdominal exam: Present soft; Absent distention, tenderness or guarding Extremities Exam Extremities exam: Present normal inspection, full ROM and normal capillary refill; Absent tenderness or edema Back Exam Back exam: Present normal inspection and full ROM; Absent tenderness Neurological Exam Neurological exam: Present alert, oriented X3, CN II-XII intact and normal gait; Absent motor sensory deficit Psychiatric Psychiatric exam: Present normal affect and normal mood Skin Skin exam: Present warm and dry Medical Decision Making Medical Records Medical records reviewed: Yes I reviewed the patient's medical records. Screening: Per USPSTF and CDC recommendations, given the prevalence of disease in our region, it is our hospital?s policy to screen for HIV and viral Hepatitis for all patients aged 18 and over and those with ongoing risk factors. Tin Inquiry Pt receiving controlled substance: No Vital Signs: 12/13/23 17:47 12/13/23 18:00 12/13/23 18:30 Temperature 98.1 F Temperature Source Oral Pulse Rate 78 91 H Pulse Rate [Right Brachial] 105 H Respiratory Rate 16 Blood Pressure 108/81 L 118/62 Blood Pressure [Left Arm] 129/84 Blood Pressure Mean 90 80 Blood Pressure Mean [Left Arm] 99 Blood Pressure Source Blood Pressure Source [Left Arm] Automatic Cuff Blood Pressure Position Blood Pressure Position [Left Arm] Sitting 02 Sat by Pulse Oximetry 100 96 96 Oxygen Delivery Method Room Air Room Air Room Air 12/13/23 19:42 Temperature 98.1 F Temperature Source Oral Pulse Rate 90 Pulse Rate [Right Brachial] Respiratory Rate 18 Blood Pressure 114/70 Blood Pressure [Left Arm] Blood Pressure Mean Blood Pressure Mean [Left Arm] Blood Pressure Source Automatic Cuff Blood Pressure Source [Left Arm] Blood Pressure Position Supine Blood Pressure Position [Left Arm] 02 Sat by Pulse Oximetry Oxygen Delivery Method Room Air Lab Data Lab results reviewed: Yes I reviewed the patient's lab results. Lab Results 12/13/23 17:19: WBC 10.2, RBC 4.64, Hgb 13.4, Hct 42.1, MCV 90.7, MCH 28.8, MCHC 31.8, RDW 18.1 H, Plt Count 265, MPV 10.2, Neut % (Auto) 76.0, Lymph % (Auto) 19.0, [place] % (Auto) 3.2, Eos % (Auto) 1.4, Baso % (Auto) 0.5, Neut # (Auto) 7.8, Lymph # (Auto) 1.9, [place] # (Auto) 0.3, Eos # (Auto) 0.2, Baso # (Auto) 0.1, Sodium 137, Potassium 4.6, Chloride 104, Carbon Dioxide 25, Anion Gap 12.6, BUN 15, Creatinine 1.00, Estimated Creat Clear 51, Estimated GFR 56 L, Est GFR ( Amer) 68, Glucose 136 H, Calcium 8.4, Total Bilirubin 0.9, AST 33, ALT 23, Alkaline Phosphatase 82, Troponin I < 0.01, Total Protein 7.1, Albumin 4.2, Globulin 2.9, Albumin/Globulin Ratio 1.4, Lipase 69 12/13/23 17:49: HIV 1&2 Antibody Rapid Nonreactive 12/13/23 18:02: SARS-CoV-2 (PCR) Not detected, Influenza A Untype (PCR) Not detected, Influenza Type B (PCR) Not detected 12/13/23 17:19 12/13/23 17:19 Orders (Tests/Meds): ED MEDICATIONS Discontinued Medications Generic Name Dose Route Start Last Admin Trade Name Oscar PRN Reason Stop Dose Admin Acetaminophen 1,000 mg 12/13/23 18:09 12/13/23 18:20 Acetaminophen 500mg Tab PO 12/13/23 18:10 1,000 mg ONCE ONE Administration Ketorolac Tromethamine 15 mg 12/13/23 18:09 12/13/23 18:20 Ketorolac 30mg/Ml Vial IV 12/13/23 18:10 15 mg ONCE ONE Administration Ondansetron HCl 4 mg 12/13/23 18:10 12/13/23 18:20 Ondansetron 4mg/2ml Vial IV 12/13/23 18:11 4 mg ONCE ONE Administration ORDERS Category Date Time Status CXR --portable [XR chest portable] Stat Exams 12/13/23 18:09 Completed CBC w/Auto Diff [Complete Blood Count Auto Diff] Stat Lab 12/13/23 17:19 Completed CMP [Comprehensive Metabolic Panel] Stat Lab 12/13/23 17:19 Completed HIV (1&2) Antibody Rapid Stat Lab 12/13/23 17:49 Completed Hep C Ab with Reflex to RNA Stat Lab 12/13/23 17:49 Received Lipase Stat Lab 12/13/23 17:19 Completed Rapid PCR Covid and Flu A/B Stat Lab 12/13/23 18:02 Completed Trop I [Troponin I] Stat Lab 12/13/23 17:19 Completed ECG Data Tracing #1: I reviewed this ECG and interpreted as documented below: Normal sinus rhythm with a ventricular rate of [address] changes concerning for ischemia. Normal axis and intervals ECG initial impression date: 12/13/23 ECG initial impression time: 18:20 Medical Decision Narrative: In summary, this patient is a 63-year-old female presenting to the Emergency Department for evaluation of headache, sore throat, cough, congestion, shortness of breath, epigastric pain, nausea, and diarrhea in the setting of recent COVID-19 exposure. Differential diagnoses considered include but are not limited to viral syndrome, pneumonia, COPD exacerbation, ACS, pancreatitis, colitis, dehydration, electrolyte derangement. Ruling out the most morbid conditions drove assessment. It should be noted patient's history includes COPD and rheumatoid arthritis which may or may not be at goal therapy. This complicates all aspects of care by increasing patient's risk for morbidity. I reviewed patient's past medical records and noted previous evaluation 8 days ago with concern for COPD exacerbation as well as evaluation just prior to that with concern for JAMISON. On exam, the patient is lying in bed in no acute distress with reassuring vital signs on cardiac telemetry. Cardiopulmonary and abdominal exams are benign. Workup included CBC, CMP, lipase, troponin, EKG, viral swab, chest x-ray. She was given IV Toradol, oral Tylenol, IV Zofran for symptomatic improvement. I independently interpreted x-ray prior to the radiologist read and noted no acute focal consolidation concerning for pneumonia. Please see their read for final interpretation. Labs were obtained that demonstrated no significant leukocytosis, no significant transaminitis, normal lipase, normal kidney function. On reassessment, the patient states she is feeling a lot better. She is able to tolerate oral intake. I feel she likely has viral syndrome. She is negative for COVID and flu, based on her constellation of symptoms this is my most likely diagnosis. Ultimately, I feel that she is appropriate for discharge home with instructions for supportive management and close follow-up with primary care and pulmonology. I do not feel antibiotics or steroids are indicated at this time, as she has no wheezing or evidence of COPD exacerbation. Critical Care Critical Care Time Critical Care Time: No
[2023-12-13 18:15] LABS: Basophils # 0.1 K/mm3 (0-0.2); Basophils % 0.5 % (0.1-2.0); Eosinophils # 0.2 K/mm3 (0.0-0.4); Eosinophils % 1.4 % (0.1-12.0); Hematocrit 42.1 % (37.0-47.0); Hemoglobin 13.4 g/dL (12.2-16.2); Lymphocytes # 1.9 K/mm3 (0.7-4.5); Mean Corpuscular HGB Conc 31.8 g/dL (31.8-35.4); Mean Corpuscular Hemoglobin 28.8 pg (27.0-31.2); Mean Corpuscular Volume 90.7 fl (81-99); Mean Platelet Volume 10.2 fl (7.4-10.4); Monocytes # 0.3 K/mm3 (0.1-1.0); Monocytes % 3.2 % (1.7-9.3); Neutrophils # 7.8 K/mm3 (1.8-7.8); Platelet Count 265 K/mm3 (142-424); Red Blood Count 4.64 M/mm3 (4.20-5.40); Red Cell Distribution Width 18.1 % (11.5-17.5); White Blood Count 10.2 K/mm3 (4.8-10.8)
--- NOTE | 2023-12-13 18:18 | ECG_ITS ---
APPROVED REPORT Exam: Resting ECG HR:89 bpm ECG Measurements Heart Rate 89 AXES [place] 135 P 66 QRSd 74 QRS 79 QT 380 T 74 QTc 427 Conclusion SINUS RHYTHM NORMAL ECG UNCONFIRMED REPORT Electronically signed by : ASHLEY LIND, 12/14/2023 06:51:11
[2023-12-13 18:20] LABS: Chloride 104 mmol/L (98-107)
[2023-12-13] MEDS: KETOROLAC 30MG/ML VIAL 15 MG IV (18:20)
[2023-12-13] MEDS: ACETAMINOPHEN 500MG TAB 1000 MG PO (18:20)
[2023-12-13] MEDS: ONDANSETRON 4MG/2ML VIAL 4 MG IV (18:20)
[2023-12-13 18:21] LABS: Albumin Level 4.2 g/dl (3.5-5.0); Potassium 4.6 mmoL/L (3.5-5.1); Sodium 137 mmol/L (136-145)
[2023-12-13 18:23] LABS: Blood Urea Nitrogen 15 mg/dl (7-17); Creatinine Clearance Estimated 51 mL/min (50-200); Estimated Glomerular Filt Rate 56 ml/min (>60); GFR (African American) 68 ML/MIN (>60)
[2023-12-13 18:24] LABS: Alanine Aminotransferase 23 U/L (12-78); Albumin/Globulin Ratio 1.4 (1.1-1.8); Alkaline Phosphatase 82 U/L (38-126); Anion Gap 12.6 mEq/L (5-15); Aspartate Amino Transferase 33 U/L (14-36); Bilirubin,Total 0.9 mg/dl (0.2-1.3); Calcium 8.4 mg/dl (8.4-10.2); Carbon Dioxide 25 mmol/L (22.0-30.0); Globulin 2.9 g/dL (1.3-3.2); Glucose 136 mg/dl (74-100); Lipase 69 U/L (23-300); Total Protein,Serum 7.1 g/dl (6.3-8.2)
[2023-12-13 18:30] VITALS: BP 118/62; PULSE 91; O2SAT 96
[2023-12-13 18:44] LABS: Troponin I < 0.01 ng/ml (0.00-0.034)
[2023-12-13 19:42] VITALS: BP 114/70; PULSE 90; RESP 18; TEMP 36.7; O2SAT 96
[2023-12-13 20:15] LABS: HIV (1&2) Antibody Rapid NONREACTIVE (NONREACTIVE)
[2023-12-15 08:21] LABS: HCV Ab Non Reactive (Non Reactive)
== END 2023-12-13 19:43 | disposition home or self-care (01) ==
PROVIDERS: Emergency Provider Emergency Medicine; PCP Family Medicine
DX: B34.9 Viral infection, unspecified (principal); R19.7 Diarrhea, unspecified; M79.10 Myalgia, unspecified site; R05.9 Cough, unspecified; R09.81 Nasal congestion; R06.02 Shortness of breath; R68.83 Chills (without fever); Z20.822 Contact with and (suspected) exposure to COVID-19
CPT/HCPCS: 71045; 80053; 83690; 84484; 85025; 86803; 87389; 87636; 93005; 96374; 96375; 99284; J1885; J2405

== ENCOUNTER 2024-01-22 11:13 | Outpatient (POV) | payer MEDICARE, OTHER, SELFPAY ==
[2024-01-22 11:18] VITALS: BP 139/79; PULSE 88; RESP 18; O2SAT 98; BMI 31.0
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
== END 2024-01-22 23:59 | disposition home or self-care (01) ==
PROVIDERS: PCP Family Medicine; Visit Provider Nurse Practitioner Family
DX: M25.561 Pain in right knee (principal); M25.562 Pain in left knee; G89.29 Other chronic pain; M54.50 Low back pain, unspecified; M25.511 Pain in right shoulder; Z73.89 Other problems related to life management difficulty; F17.210 Nicotine dependence, cigarettes, uncomplicated; Z96.642 Presence of left artificial hip joint; Z79.899 Other long term (current) drug therapy
CPT/HCPCS: 99202; G0463

== ENCOUNTER 2024-02-14 18:45 | Observation (INO) | payer MEDICARE, OTHER, SELFPAY ==
[2024-02-14 18:53] VITALS: BP 141/88; PULSE 98; RESP 22; TEMP 37.3; O2SAT 92; BMI 28.4
--- NOTE | 2024-02-14 19:07 | XR_ITS ---
PROCEDURE INFORMATION: Exam: XR Chest Exam date and time: 02/14/2024 7:17 PM Age: 63 years old Clinical indication: Cough and shortness of breath; Additional info: SOA cough productive TECHNIQUE: Imaging protocol: Radiologic exam of the chest. Views: 1 view. COMPARISON: CR XR CHEST PORTABLE 12/13/2023 6:31 PM FINDINGS: Lungs: Mildly low lung volumes with bronchovascular crowding. Bilateral lower lobe linear densities. Pleural spaces: No pleural effusion. No pneumothorax. Heart/Mediastinum: No cardiomegaly. Bones/joints: No acute findings. IMPRESSION: Bilateral lower lobe linear densities likely representing atelectasis although infection cannot be excluded.
--- NOTE | 2024-02-14 19:13 | [facility].EDCP ---
Discharge Plan Disposition Patient Disposition: Admitted Chief Complaint: Shortness of Breath/Dyspnea Prescriptions Prescriptions: No Action folic acid 1 MG tablet 1 mg PO DAILY hydroxychloroquine 200 MG tablet 200 mg PO DAILY escitalopram oxalate 20 MG tablet 20 mg PO DAILY Humira Pen 40 MG/0.8 ML pen injector kit 40 mg SQ WEEKLY Rx Instructions: PATIENT TAKES ON MONDAYS famotidine 40 MG tablet 40 mg PO DAILY doxepin 25 mg capsule 25 mg PO HS mirtazapine 15 mg tablet 15 mg PO DAILY atorvastatin 40 mg tablet 40 mg PO HS alendronate 70 mg tablet 70 mg PO WEEKLY Rx Instructions: PATIENT TAKES ON FRIDAYS clopidogrel 75 mg tablet 75 mg PO DAILY omeprazole 40 mg capsule,delayed release(DR/EC) 40 mg PO DAILY terbinafine HCl 250 mg tablet 250 mg PO DAILY gabapentin 800 mg tablet 800 mg PO BID Xarelto 2.5 mg tablet 2.5 mg PO BIDWMEAL Nurtec ODT 75 mg tablet,disintegrating 75 mg PO DAILYP PRN (Reason: Migraine Headache) albuterol sulfate 2.5 MG/NEB solution for nebulization 2.5 mg inhalation TIDP PRN (Reason: Wheezing) duloxetine 60 mg capsule,delayed release(DR/EC) 60 mg PO BID Trelegy Ellipta 100-62.5-25 mcg Blister With Device 1 inh inhalation DAILY 30 Days Qty: 28 0RF hydrocodone-acetaminophen 10-325 mg tablet 0.5 tab PO BIDP PRN (Reason: Moderate Pain (Scale Score 5-6)) cyanocobalamin (vitamin B-12) 1,000 mcg/mL solution 1,000 mcg IM MONTHLY doxycycline hyclate 100 mg tablet 100 mg PO BID potassium chloride 20 mEq tablet,ER particles/crystals 20 meq PO DAILY furosemide 20 mg tablet 20 mg PO DAILY lidocaine 5 % adhesive patch,medicated 1 patch topical DAILY Qty: 30 0RF Rx Instructions: leave on most painful area for up to 12 hrs lidocaine [Salonpas (lidocaine)] 4 % adhesive patch,medicated 1 patch topical DAILY PRN (Reason: pain) Qty: 30 0RF Referrals Follow up/Referrals: Patsy Hair [Primary Care Provider] - See instructions Clinical Impressions Clinical Impression: Acute hypoxemic respiratory failure, Pneumonia, Acute exacerbation of chronic obstructive pulmonary disease Print Language Print Language: French Discharge ED Provider: Rosaura,Ross A HPI General Chief Complaint: Shortness of Breath/Dyspnea Stated Complaint: ba cough soa diarrhea Time Seen by Provider: 02/14/24 18:51 Mode of Arrival: Family Vehicle Source of Information: Patient Limitations: No Limitations Description of Symptoms (Recalled from ER Triage Doc. by RN): Pt. presents to the ED with complaints shortness of air, productive cough, and wheezing for 2-3 days. She denies fevers. She does have COPD and states she feels like she is having a flare up . History of Present Illness HPI narrative: Please note that above description of symptoms, in this electronic medical record under categorization of recalled from ER triage doctor by RN are reflective of an initial nursing assessment, however, is not reflective of my full history and physical exam that was personally taken and clarified. Consequentially, this preceding description of symptoms, which may include the patient's categorized chief complaint in the EMR, do not reflect my personal clinical impression, and the ultimate description of history of present illness and patient stated complaints should be deferred to this section of the note. Unless stated otherwise or congruent with this section of the note, additional signs, symptoms, or incongruence should be interpreted as inaccurate with my clinical impression. Related Data Home Medications ?Medication ?Instructions ?Recorded ?Confirmed adalimumab 40 mg/0.8 mL 40 mg SQ WEEKLY 07/16/21 01/22/24 subcutaneous pen kit (Humira Pen) escitalopram oxalate 20 mg tablet 20 mg PO DAILY 07/16/21 01/22/24 folic acid 1 mg tablet 1 mg PO DAILY 07/16/21 01/22/24 hydroxychloroquine 200 mg tablet 200 mg PO DAILY 07/16/21 01/22/24 famotidine 40 mg tablet 40 mg PO DAILY 07/17/21 01/22/24 albuterol sulfate 2.5 mg/3 mL 2.5 mg inhalation TIDP PRN Wheezing 06/24/23 01/22/24 (0.083 %) solution for nebulization alendronate 70 mg tablet 70 mg PO WEEKLY 06/24/23 01/22/24 atorvastatin 40 mg tablet 40 mg PO HS 06/24/23 01/22/24 clopidogrel 75 mg tablet 75 mg PO DAILY 06/24/23 01/22/24 duloxetine 60 mg capsule,delayed 60 mg PO BID 06/24/23 01/22/24 release gabapentin 800 mg tablet 800 mg PO BID 06/24/23 01/22/24 omeprazole 40 mg capsule,delayed 40 mg PO DAILY 06/24/23 01/22/24 release rimegepant 75 mg disintegrating 75 mg PO DAILYP PRN Migraine 06/24/23 01/22/24 tablet (Nurtec ODT) Headache rivaroxaban 2.5 mg tablet (Xarelto) 2.5 mg PO BIDWMEAL 06/24/23 01/22/24 terbinafine HCl 250 mg tablet 250 mg PO DAILY 06/24/23 01/22/24 doxepin 25 mg capsule 25 mg PO HS 10/20/23 01/22/24 mirtazapine 15 mg tablet 15 mg PO DAILY 10/20/23 01/22/24 cyanocobalamin (vitamin B-12) 1,000 mcg IM MONTHLY 11/23/23 01/22/24 1,000 mcg/mL injection solution doxycycline hyclate 100 mg tablet 100 mg PO BID 11/23/23 01/22/24 hydrocodone 10 mg-acetaminophen 0.5 tab PO BIDP PRN Moderate Pain 11/23/23 01/22/24 325 mg tablet (Scale Score 5-6) furosemide 20 mg tablet 20 mg PO DAILY 11/24/23 01/22/24 potassium chloride 20 mEq 20 meq PO DAILY 11/24/23 01/22/24 tablet,extended release(part/cryst) Previous Rx's ?Medication ?Instructions ?Recorded fluticasone fur. 100 mcg-umeclid 1 inh inhalation DAILY 30 days #28 06/24/23 62.5 mcg-vilant 25 mcg ea inhalat.powder (Trelegy Ellipta) lidocaine 5 % topical patch 1 patch topical DAILY #30 ea 01/22/24 lidocaine 4 % topical patch 1 patch topical DAILY PRN pain #30 01/31/24 (Salonpas (lidocaine)) ea Allergies Allergy/AdvReac Type Severity Reaction Status Date / Time No Known Allergies Allergy Verified 12/05/23 12:42 [facility] Disclaimer: The information contained in this section may have been updated after the patient was seen, as this information can be updated by other users. Medical History Acute exacerbation of chronic obstructive pulmonary disease Fibrosis of lung Smoking greater than 30 pack years Pulmonary emphysema ILD (interstitial lung disease) HSV-1 infection Urinary tract infection Pneumonia Urinary incontinence Osteoarthritis Rheumatoid arthritis History of back pain Surgical History History of hip replacement History of colonoscopy History of left hip replacement Family History Other Family history of COPD (chronic obstructive pulmonary disease) Family history of arthritis Family history of cancer Family history of diabetes mellitus type I Family history of hypertension Social History (Updated 01/22/24 @ 11:40 by Zahra Coyne RN) Smoking Status: Current every day smoker tobacco type: cigarettes packs per day: 1 alcohol intake: former substance use type: denies use current occupational status: unemployed Travel in the last 8 weeks: None household members: spouse and children housing: apartment caffeine: Yes Have you lived/traveled outside [place] in past 30 days?: No Contact w/someone who lives/traveled outside [place] past 30 days?: No Exposure to someone with infectious disease in past 14 days?: No Do you have a fever (greater than 100.4 F or 38 C)?: No Have you tested positive for COVID-19: No Exposed to someone with COVID-19 in past 14 days?: No Do you have a sore throat?: No Do you have a cough?: Yes Do you have any weakness?: Yes Do you have any diarrhea?: Yes Are you experiencing any unusual bleeding?: No Do you have any muscle aches/pain?: No Do you have any abdominal pain?: No Are you experiencing loss of taste or smell?: No Other Medical History Have you received the Flu Vaccine for this season: Yes Have you received the Pneumonia Vaccine: No ROS Obtained: Yes All systems reviewed & no additional complaints except as documented Physical Exam General General appearance: alert and in distress (Mild respiratory distress) Neck Neck exam: Present trachea midline Chest Chest inspection: Present normal inspection and symmetric chest wall rise Respiratory Respiratory exam: Present respiratory distress, wheezes, accessory muscle use, prolonged expiratory phase and other (Tachypnea 25 to 30 breaths per min); Absent normal lung sounds bilaterally or stridor Cardiovascular Cardiovascular exam: Present regular rate, normal rhythm and other (Pulses equal and symmetric in upper and lower extremities) Extremities Exam Extremities exam: Absent edema Neurological Exam Neurological exam: Present alert, oriented X3 and CN II-XII intact Skin Skin exam: Present warm and dry; Absent cyanosis, diaphoresis or pallor HEART Score HEART Score HEART Score assessment performed?: Yes HEART Score: 4 Critical Care Critical Care Time Critical Care Time: Yes (Respiratory) Attestation: On 02/14/24, the high probability of a clinically significant, sudden or life threatening deterioration of the following system(s) required my full and direct attention, intervention and personal management. The time I documented below is in addition to time spent performing reported procedures but includes the following listed in this critical care notation. Total Time Total Critical Care Time: 45 Medical Decision Making Medical Records Medical records reviewed: Yes I reviewed the patient's medical records. Tin Inquiry Pt receiving controlled substance: No Tin was queried for this patient: No Vital Signs Vital Signs: 02/14/24 18:53 02/14/24 19:28 02/14/24 19:28 Temperature 99.2 F Temperature Source Oral Pulse Rate 93 H Pulse Rate [Right Brachial] 98 H Respiratory Rate 22 Blood Pressure [Right Arm] 141/88 H Blood Pressure Mean [Right Arm] 105 Blood Pressure Source [Right Arm] Automatic Cuff Blood Pressure Position [Right Arm] Sitting 02 Sat by Pulse Oximetry 92 L 92 L Oxygen Delivery Method Room Air Room Air Oxygen Flow Rate (LPM) 02/14/24 19:28 02/14/24 21:19 02/14/24 21:19 Temperature Temperature Source Pulse Rate 89 98 H 94 H Pulse Rate [Right Brachial] Respiratory Rate Blood Pressure [Right Arm] Blood Pressure Mean [Right Arm] Blood Pressure Source [Right Arm] Blood Pressure Position [Right Arm] 02 Sat by Pulse Oximetry Oxygen Delivery Method Oxygen Flow Rate (LPM) 02/14/24 21:19 Temperature Temperature Source Pulse Rate Pulse Rate [Right Brachial] Respiratory Rate Blood Pressure [Right Arm] Blood Pressure Mean [Right Arm] Blood Pressure Source [Right Arm] Blood Pressure Position [Right Arm] 02 Sat by Pulse Oximetry 94 L Oxygen Delivery Method Nasal Cannula Oxygen Flow Rate (LPM) 2 Lab Data Labs: Lab Results 02/14/24 19:07: VBG pH 7.40, VBG pCO2 42.8, VBG pO2 57.7 H, VBG HCO3 25.8, VBG Total CO2 27.1 H, VBG O2 Saturation 90.1 H, VBG Base Excess 1.0, VBG Lactic Acid 1.2 02/14/24 19:36: WBC 5.6, RBC 3.89 L, Hgb 10.7 L, Hct 34.0 L, MCV 87.4, MCH 27.5, MCHC 31.5 L, RDW 16.9, Plt Count 182, MPV 12.2 H, Neut % (Auto) 80.3 H, Lymph % (Auto) 17.1, [place] % (Auto) 2.2, Eos % (Auto) 0.0 L, Baso % (Auto) 0.2, Neut # (Auto) 4.5, Lymph # (Auto) 1.0, [place] # (Auto) 0.1, Eos # (Auto) 0.0, Baso # (Auto) 0.0, Sodium 138, Potassium 3.8, Chloride 106, Carbon Dioxide 27, Anion Gap 8.8, BUN 11, Creatinine 1.00, Estimated Creat Clear 54, Estimated GFR 56 L, Est GFR ( Amer) 68, Glucose 77, Calcium 8.5, Total Bilirubin 0.4, AST 36, ALT 17, Alkaline Phosphatase 60, Troponin I < 0.01, Total Protein 6.3, Albumin 3.6, Globulin 2.7, Albumin/Globulin Ratio 1.3 02/14/24 19:36 02/14/24 19:36 Response Orders (Tests/Meds): ED MEDICATIONS Discontinued Medications Generic Name Dose Route Start Last Admin Trade Name Freq PRN Reason Stop Dose Admin Albuterol/Ipratropium 9 ml 02/14/24 19:08 02/14/24 19:28 Ipratropium/Albuterol 3 Ml [facility] 02/14/24 19:09 9 ml ONCE ONE Administration Albuterol/Ipratropium 9 ml 02/14/24 20:37 02/14/24 21:19 Ipratropium/Albuterol 3 Ml Former[facility] 02/14/24 20:38 9 ml ONCE ONE Administration Magnesium Sulfate 2 gm in 50 mls @ 50 mls/hr 02/14/24 19:08 02/14/24 19:28 Magnesium Sulfate 2gm/50ml Premix IV 02/14/24 20:07 50 mls/hr ONCE ONE Administration Ceftriaxone Sodium 2 gm/ 100 mls @ 200 mls/hr 02/14/24 20:06 02/14/24 20:19 Sodium Chloride IV 02/14/24 20:35 200 mls/hr ONCE ONE Administration Methylprednisolone Sodium Succinate 125 mg 02/14/24 19:08 02/14/24 19:29 Methylprednisolone Sod Succ 125mg Vial IV 02/14/24 19:09 125 mg ONCE ONE Administration ORDERS Category Date Time Status CXR --portable [XR chest portable] Stat Exams 02/14/24 19:07 Completed CBC w/Auto Diff [Complete Blood Count Auto Diff] Stat Lab 02/14/24 19:36 Completed CMP [Comprehensive Metabolic Panel] Stat Lab 02/14/24 19:36 Completed Trop I [Troponin I] Stat Lab 02/14/24 19:36 Completed Troponin I Q3H Lab 02/14/24 22:15 Ordered Troponin I Q3H Lab 02/15/24 01:15 Ordered VBG [Venous Blood Gas] Stat RT 02/14/24 19:07 Completed MDM Narrative Medical Decision Narrative: 63-year-old female history of COPD still smoking a pack per day not on home oxygen presenting with shortness of breath. Patient states that she has been feeling short of breath for about the past 5 days. Getting worse progressively each day. Nonpositional, but it is exertional. No fevers or chills, but she now has a new cough that is productive of yellow sputum and more sputum than she is used to. Feeling generally weak, fatigued. No chest pain, nausea, vomiting, but she has had a couple episodes of nonbloody diarrhea. Sick contact with viral symptoms. History was obtained via conversation with patient. On arrival, patient hemodynamically stable, alert, [oriented x4, ][appropriate, ]GCS [15], moving all extremities spontaneously, pupils equal and reactive to light. Full physical exam performed and significant for chronically ill-appearing female in mild to moderate respiratory distress. She is tachypneic, using accessory muscles on expiration, breathing through pursed lips and has diffuse wheezes heard throughout expiration. Patient speaking in partial sentences. No focal breath sounds. Cardiac exam otherwise normal. No lower extremity edema. Differential includes COPD exacerbation, ACS, OH, pneumothorax, pneumonia, sepsis, among others. Patient was given Solu-Medrol, DuoNebs, IV magnesium for symptomatic management[ and correction of underlying abnormalities]. Patient placed on continuous cardiac monitoring and continuous pulse ox with initial blood pressure 141/88, heart rate 98, saturation 92% on room air. [Independent interpretation of EKG shows] sinus rhythm [address] or T wave changes concerning for acute ischemia. ME interval 141, QRS 77, QTc 414. Normal axis.. Workup independently interpreted and significant for nonactionable CBC. Patient's gas nonactionable as well. Chemistry overall normal. Troponin negative. Chest x-ray with opacity starting to form in the right lower lobe consistent with developing pneumonia. Patient was given oral Augmentin for this. Heart score 4. On reevaluation, patient is breathing much more easily and states that she feels a little bit better. Oxygen still within normal limits within the confines of COPD. On reevaluation, patient continuing to desaturate. Patient was given 3 more DuoNebs and supplemental oxygen. Patient was observed a couple of hours later and still desaturating into the mid to high 80s with increased respiratory rate with removal of supplemental oxygen. Hospital medicine was consulted and case was discussed, to be admitted. Given patient presentation, workup, history, this most likely represents COPD exacerbation in the setting of pneumonia with hypoxemic respiratory failure. Because patient high risk for clinical decompensation, deemed appropriate for inpatient admission. Results were relayed to patient who voiced understanding and patient was agreeable to inpatient admission and management. Patient was admitted to the hospital for further definitive management. Financial Center Manager disclaimer Much of this encounter note is an electronic chiller operator spoken language to printed text. Electronic chiller operator of the spoken language may permit errors. Although I have reviewed the note, some errors may still exist.
[2024-02-14 19:28] VITALS: PULSE 89; PULSE 93; O2SAT 92
[2024-02-14] MEDS: IPRATROPIUM/ALBUTEROL 3 ML NEB 9 ML IH ×2 (19:28→21:19)
[2024-02-14] MEDS: MAGNESIUM SULFATE IN WATER 2 GM/50 ML PIGGYBACK IV (19:28)
[2024-02-14] MEDS: METHYLPREDNISOLONE SOD SUCC 125MG VIAL 125 MG IV (19:29)
--- NOTE | 2024-02-14 19:35 | ECG_ITS ---
APPROVED REPORT Exam: Resting ECG HR:94 bpm ECG Measurements Heart Rate 94 AXES ID 141 P 77 QRSd 77 QRS 72 QT 363 T 80 QTc 414 Conclusion Sinus rhythm Electronically signed by : ETHAN DOVE, 02/14/2024 21:52:50
[2024-02-14 19:44] LABS: Basophils % 0.2 % (0.1-2.0); Hemoglobin 10.7 g/dL (12.2-16.2); Lymphocytes % 17.1 % (10-50); Mean Corpuscular HGB Conc 31.5 g/dL (31.8-35.4); Mean Corpuscular Hemoglobin 27.5 pg (27.0-31.2); Mean Corpuscular Volume 87.4 fl (81-99); Mean Platelet Volume 12.2 fl (7.4-10.4); Monocytes # 0.1 K/mm3 (0.1-1.0); Monocytes % 2.2 % (1.7-9.3); Neutrophils # 4.5 K/mm3 (1.8-7.8); Neutrophils % 80.3 % (37.0-80.0); Platelet Count 182 K/mm3 (142-424); Red Blood Count 3.89 M/mm3 (4.20-5.40); Red Cell Distribution Width 16.9 % (11.5-17.5); White Blood Count 5.6 K/mm3 (4.8-10.8)
[2024-02-14 19:47] LABS: Lactate Venous 1.2 mmol/L (0.4-2.0); VBG HCO3 25.8 mmol/L (23-30); VBG Oxygen Saturation 90.1 % (50-70); VBG PCO2 42.8 mmol/L (35-51); VBG PO2 57.7 mmol/L (28-40); VBG Total CO2 27.1 mmol/L (23-27)
[2024-02-14 19:51] LABS: Albumin Level 3.6 g/dl (3.5-5.0); Chloride 106 mmol/L (98-107); Sodium 138 mmol/L (136-145)
[2024-02-14 19:52] LABS: Potassium 3.8 mmoL/L (3.5-5.1)
[2024-02-14 19:54] LABS: Alanine Aminotransferase 17 U/L (12-78); Anion Gap 8.8 mEq/L (5-15); Aspartate Amino Transferase 36 U/L (14-36); Blood Urea Nitrogen 11 mg/dl (7-17); Carbon Dioxide 27 mmol/L (22.0-30.0); Creatinine Clearance Estimated 54 mL/min (50-200); Estimated Glomerular Filt Rate 56 ml/min (>60); GFR (African American) 68 ML/MIN (>60)
[2024-02-14 19:55] LABS: Albumin/Globulin Ratio 1.3 (1.1-1.8); Alkaline Phosphatase 60 U/L (38-126); Bilirubin,Total 0.4 mg/dl (0.2-1.3); Calcium 8.5 mg/dl (8.4-10.2); Globulin 2.7 g/dL (1.3-3.2); Glucose 77 mg/dl (74-100); Total Protein,Serum 6.3 g/dl (6.3-8.2)
[2024-02-14 20:07] LABS: Troponin I < 0.01 ng/ml (0.00-0.034)
[2024-02-14] MEDS: CEFTRIAXONE SODIUM 2 GM in 0.9 % SODIUM CHLORIDE 100 ML IV (20:19)
--- NOTE | 2024-02-14 20:26 | PC.NURSE ---
as per the MAR ceftraxione administered
[2024-02-14 21:19] VITALS: PULSE 94; PULSE 98; O2SAT 94
[2024-02-14 23:02] VITALS: BP 109/76; PULSE 103; RESP 20; TEMP 37.3; O2SAT 90
[2024-02-14 23:15] VITALS: O2SAT 92
[2024-02-14 23:30] VITALS: BP 109/76; PULSE 105; RESP 19; TEMP 37.1; O2SAT 93; BMI 25.1
--- NOTE | 2024-02-14 23:42 | PC.NURSE ---
Spoke with pt upon admission and pt stated that she wanted to be a full code. This nurse educated pt on what a full code status entailed. JERMAIN Hogue aware. Order changed
--- NOTE | 2024-02-14 23:45 | P.HP_ITS ---
<Statement entered by Fuentes Zapata MD - 02/20/24 22:27> I personally evaluated the patient and agree with the plan as outlined by the DIRECTOR SPECIAL EDUCATION. History of Present Illness *Admission Date: 02/14/24 *Reason for visit:: Acute exacerbation of COPD with increased oxygen requirements *History of present illness: Ms. Gonzalez is a 63-year-old female that is well-known to us. She has come in today little worse than she normally is. Complaining of shortness of breath c ough being ill for approximately a week, Patient has been seen by the ER and she has been admitted at least 3 times in the last 6 months.. Patient has over a [id number] history of smoking. Patient's weight has decreased from October 21 129 pounds to 111 pounds now. Are approximately a 14% body weight loss in 4 months. She looks more ill than she normally does and malnourished. I have spoken with the ER physician and examined her old records and present labs and chest x-ray. Remarkably her labs do not show anything particularly concerning at this time. Chest x-ray just shows chronic changes no acute, no accumulation of fluid.. The ER provider has given the equivalent of 6 nebulizers steroids antibiotics with very little improvement in the patient's condition. Most concerning is her lack of improvement with all she has received in the emergency room. She is still requiring oxygen and looks very frail and worn out. I spoke to the patient my concerns that if she did not improve if she worsened I might have to put her on BiPAP and if that did not work to possibly intubate her. So discussed with her what that meant she understood that and she decided to be a DNR/DNI. Have received a phone call from the nurse on the floor that the patient has changed her mind she is now full code. I do feel that there is a significant chance of decompensation in this patient over the next few days if treatment does not start to have some effect.. So I do agree with the ER provider that she needs to be admitted at this time. I will keep her on monitor cardiac and continuous ox monitoring while on the floor maximizing pulmonary toileting continuing antibiotics adding steroids and will make sure she gets her necessary home medications restarted as soon as possible. [facility] Disclaimer: The information contained in this section may have been updated after the patient was seen, as this information can be updated by other users. Medical History (Updated 02/15/24 @ 00:25 by Mykel Quach APRN) COPD with respiratory distress, acute Osteopenia Scoliosis Hypokalemia Abdominal pain Ventral incisional hernia without obstruction or gangrene Acute pain of left knee Abdominal pain JAMISON (acute kidney injury) Tobacco dependence in remission Nausea & vomiting Acute colitis Hypokalemia Urinary tract infection Acute exacerbation of chronic obstructive pulmonary disease (COPD) Low back pain Bilateral knee pain Right shoulder pain Acute exacerbation of chronic obstructive pulmonary disease Fibrosis of lung Smoking greater than 30 pack years Pulmonary emphysema ILD (interstitial lung disease) HSV-1 infection Urinary tract infection Pneumonia Urinary incontinence Osteoarthritis Rheumatoid arthritis History of back pain Surgical History History of hip replacement History of colonoscopy History of left hip replacement Family History Other Family history of COPD (chronic obstructive pulmonary disease) Family history of arthritis Family history of cancer Family history of diabetes mellitus type I Family history of hypertension Social History Smoking Status: Current every day smoker tobacco type: cigarettes packs per day: 1 alcohol intake: former substance use type: denies use current occupational status: unemployed Travel in the last 8 weeks: None household members: spouse and children housing: apartment caffeine: Yes Have you lived/traveled outside [place] in past 30 days?: No Contact w/someone who lives/traveled outside [place] past 30 days?: No Exposure to someone with infectious disease in past 14 days?: No Do you have a fever (greater than 100.4 F or 38 C)?: No Have you tested positive for COVID-19: No Exposed to someone with COVID-19 in past 14 days?: No Do you have a sore throat?: No Do you have a cough?: Yes Do you have any weakness?: Yes Do you have any diarrhea?: Yes Are you experiencing any unusual bleeding?: No Do you have any muscle aches/pain?: No Do you have any abdominal pain?: No Are you experiencing loss of taste or smell?: No Other Medical History Have you received the Flu Vaccine for this season: No Have you received the Pneumonia Vaccine: No Review of Systems Review of Systems Review of systems:: pertinent systems reviewed and negative unless documented below Review of systems (narrative): Patient is able to knowledge she understands all teaching given to her. But she is only able to speak in very quiet short phrases of 3-4 words Constitutional Constitutional: Reports as per HPI, Reports fatigue, Reports lethargy and Reports weight loss Comments: Loss of 14% body weight in the last 4 months Eyes Eyes: Reports as per HPI ENT Ears, Nose, Mouth, and Throat: Reports as per HPI and Reports dry mouth *Cardiovascular Cardiovascular: Reports as per HPI, Reports dyspnea and Reports dyspnea on exertion Comments: Patient denies any chest pain *Respiratory Respiratory: Reports as per HPI, Reports change in phlegm color, Reports chest congestion, Reports cough, Reports dyspnea, Reports dyspnea on exertion and Reports wheezing Comments: Very diminished in all wesley. Noting patient is on oxygen but is unable to talk in full sentences *Gastrointestinal Gastrointestinal: Reports as per HPI Comments: There was no abdominal pain to deep palpation *Genitourinary Genitourinary: Reports as per HPI *Musculoskeletal Musculoskeletal: Reports as per HPI and Reports atrophy Integumentary/Breasts Skin/Breast: Reports as per HPI *Neurologic Neurologic: Reports as per HPI Psychiatric Psychiatric: Reports as per HPI Endocrine Endocrine: Reports as per HPI and Reports fatigue Hematologic/Lymphatic Hematologic/Lymphatic: Reports as per HPI Allergic/Immunologic Allergic/Immunologic: Reports as per HPI and Reports wheezing Meds Home Medications and Allergies Home Medications ?Medication ?Instructions ?Recorded ?Confirmed ?Type adalimumab 40 mg/0.8 mL 40 mg SQ WEEKLY 07/16/21 01/22/24 History subcutaneous pen kit (Humira Pen) escitalopram oxalate 20 mg tablet 20 mg PO DAILY 07/16/21 01/22/24 History folic acid 1 mg tablet 1 mg PO DAILY 07/16/21 01/22/24 History hydroxychloroquine 200 mg tablet 200 mg PO DAILY 07/16/21 01/22/24 History famotidine 40 mg tablet 40 mg PO DAILY 07/17/21 01/22/24 History albuterol sulfate 2.5 mg/3 mL 2.5 mg inhalation TIDP PRN Wheezing 06/24/23 01/22/24 History (0.083 %) solution for nebulization alendronate 70 mg tablet 70 mg PO WEEKLY 06/24/23 01/22/24 History atorvastatin 40 mg tablet 40 mg PO HS 06/24/23 01/22/24 History clopidogrel 75 mg tablet 75 mg PO DAILY 06/24/23 01/22/24 History duloxetine 60 mg capsule,delayed 60 mg PO BID 06/24/23 01/22/24 History release fluticasone fur. 100 mcg-umeclid 1 inh inhalation DAILY 30 days #28 06/24/23 01/22/24 Rx 62.5 mcg-vilant 25 mcg ea inhalat.powder (Trelegy Ellipta) gabapentin 800 mg tablet 800 mg PO BID 06/24/23 01/22/24 History omeprazole 40 mg capsule,delayed 40 mg PO DAILY 06/24/23 01/22/24 History release rimegepant 75 mg disintegrating 75 mg PO DAILYP PRN Migraine 06/24/23 01/22/24 History tablet (Nurtec ODT) Headache rivaroxaban 2.5 mg tablet (Xarelto) 2.5 mg PO BIDWMEAL 06/24/23 01/22/24 History terbinafine HCl 250 mg tablet 250 mg PO DAILY 06/24/23 01/22/24 History doxepin 25 mg capsule 25 mg PO HS 10/20/23 01/22/24 History mirtazapine 15 mg tablet 15 mg PO DAILY 10/20/23 01/22/24 History cyanocobalamin (vitamin B-12) 1,000 mcg IM MONTHLY 11/23/23 01/22/24 History 1,000 mcg/mL injection solution doxycycline hyclate 100 mg tablet 100 mg PO BID 11/23/23 01/22/24 History hydrocodone 10 mg-acetaminophen 0.5 tab PO BIDP PRN Moderate Pain 11/23/2301/21 History 325 mg tablet (Scale Score 5-6) furosemide 20 mg tablet 20 mg PO DAILY 11/24/23 01/22/24 History potassium chloride 20 mEq 20 meq PO DAILY 11/24/23 01/22/24 History tablet,extended release(part/cryst) lidocaine 5 % topical patch 1 patch topical DAILY #30 ea 01/22/24 Rx lidocaine 4 % topical patch 1 patch topical DAILY PRN pain #30 01/31/24 Rx (Salonpas (lidocaine)) ea New Prescriptions to Start Prescriptions: Allergies Allergy/AdvReac Type Severity Reaction Status Date / Time No Known Allergies Allergy Verified 12/05/23 12:42 Exam Data for Last 24 hours Vital signs and Labs for Last 24 Hours: Temp Pulse Resp BP Pulse Ox O2 Del Method O2 Flow Rate 98.7 F 105 H 19 109/76 L 93 L Nasal Cannula 2 02/14/24 23:30 02/14/24 23:30 02/14/24 23:30 02/14/24 23:30 02/14/24 23:30 02/14/24 23:30 02/14/24 23:30 Laboratory Results - last 24 hr 02/14/24 19:07: VBG pH 7.40, VBG pCO2 42.8, VBG pO2 57.7 H, VBG HCO3 25.8, VBG Total CO2 27.1 H, VBG O2 Saturation 90.1 H, VBG Base Excess 1.0, VBG Lactic Acid 1.2 02/14/24 19:36: WBC 5.6, RBC 3.89 L, Hgb 10.7 L, Hct 34.0 L, MCV 87.4, MCH 27.5, MCHC 31.5 L, RDW 16.9, Plt Count 182, MPV 12.2 H, Neut % (Auto) 80.3 H, Lymph % (Auto) 17.1, [place] % (Auto) 2.2, Eos % (Auto) 0.0 L, Baso % (Auto) 0.2, Neut # (Auto) 4.5, Lymph # (Auto) 1.0, [place] # (Auto) 0.1, Eos # (Auto) 0.0, Baso # (Auto) 0.0, Sodium 138, Potassium 3.8, Chloride 106, Carbon Dioxide 27, Anion Gap 8.8, BUN 11, Creatinine 1.00, Estimated Creat Clear 54, Estimated GFR 56 L, Est GFR ( Amer) 68, Glucose 77, Calcium 8.5, Total Bilirubin 0.4, AST 36, ALT 17, Alkaline Phosphatase 60, Troponin I < 0.01, Total Protein 6.3, Albumin 3.6, Globulin 2.7, Albumin/Globulin Ratio 1.3 I & O for Last 24 hours: Intake & Output 02/12/24 02/13/24 02/14/24 02/15/24 05:59 05:59 05:59 05:59 Weight 111 lb 11.2 oz Radiology Reports for the Last 24 Hours: No acute findings on chest x-ray Constitutional Constitutional: moderate distress, thin, chronically ill appearing, disheveled and cooperative *Routine HEENT Exam Head: Present normocephalic and atraumatic Eye: Present EOMI, PERRL and normal accommodation ENT: Present mucous membranes moist and oropharynx clear Comments: Patient has no teeth and she did not bring her dentures with her *Routine Neck Exam Neck: Present supple and full ROM Routine Chest/Breast/Axilla Exam Comments: During the exam found no chest wall pain *Routine Respiratory Exam Respiratory: Present accessory muscle use, decreased breath sounds, prolonged expiratory phase, rales, respiratory distress, rhonchi, wheezes and diminished air movement Comments: All wesley have significantly decreased air movement in them. Rales and rhonchi throughout slight wheezing at end expiratory, after several nebulizer treatments *Routine Cardiovascular Exam Cardiovascular: Present RRR, Normal S1, Normal S2 and tachycardia Comments: No edema to lower extremities actually looks to be slightly dehydrated *Routine Abdominal Exam Abdominal: Present soft and normoactive bowel sounds Comments: No tenderness to palpation *Routine Rectal Exam Rectal:: deferred *Routine Genitalia Exam Genitalia:: deferred *Routine Extremities Exam Extremities: Present full ROM, pulses intact and normal capillary refill Comments: Both arms and legs extremely small limbs. Decrease in muscle mass there is no edema at all fact turgor is kind of poor, does have full sensation to all distal extremities able to move her feet and hands without any difficulty Routine Back/Spine/Pelvis Exam Back/Spine: Present full ROM Comments: Patient had really difficulty just sitting up in the bed. I had to help her not a lot of strength. But there was no sign of injury no sign of pain just deconditioning and being ill *Routine Skin Exam Skin: Present dry Comments: Patient's face slight redness around the nose the mouth very poor skin condition looks to be malnourished, very poor turgor, skin is thin there is really very little fat pad beneath *Routine Neurological Exam Neurological: Present alert, oriented X3, CN II-XII intact, vision grossly intact and hearing grossly intact Comments: Her speech is normal but she is just too out of breath to talk for more than 2 or 3 word, But she indicates to me that she does understand all the teaching I did for her, including CODE STATUS. And that there was a possibility if she did not improve and got worse she would have to be intubated Routine Psychiatric Exam Psychiatric: Present normal affect, normal thought process, cooperative and good insight Comments: Spoke to the patient she did not feel she would need a nicotine patch, she understands that the smoking has caused her lung disease and is part of the reason she is in the emergency room, H&P: Result Impressions 1. Exacerbation of COPD with slowly decreasing yellow lung function related to years of smoking and now with malnourishment and weight loss 2. Depression/anxiety. Also noting from formation received from a friend that was with her in the room that her is very demanding expecting her to do everything No indication of physical abuse 3. Weight loss in the last 4-month, poor nutrition just from visual exam Imaging and Cardiology Chest x-ray: Additional comments: No acute findings or consolidation just emphysema/COPD Assessment and Plan *Assessment and plan (1) Acute exacerbation of chronic obstructive pulmonary disease: Status: Acute Category: Medical Code(s): J44.1 - Chronic obstructive pulmonary disease with (acute) exacerbation (2) Pneumonia: Status: Acute Qualifiers: Pneumonia type: due to unspecified organism Laterality: bilateral Lung location: unspecified part of lung Qualified Code(s): J18.9 - Pneumonia, unspecified organism Category: Medical Code(s): J18.9 - Pneumonia, unspecified organism (3) Acute hypoxemic respiratory failure: Status: Acute Category: Medical Code(s): J96.01 - Acute respiratory failure with hypoxia (4) Acute viral syndrome: Status: Acute Category: Medical Code(s): B34.9 - Viral infection, unspecified (5) Shortness of breath: Status: Acute Category: Medical Code(s): R06.02 - Shortness of breath (6) Fibrosis of lung: Status: Acute Category: Medical Code(s): J84.10 - Pulmonary fibrosis, unspecified (7) Smoking greater than 30 pack years: Status: Acute Category: Social Hx Code(s): F17.210 - Nicotine dependence, cigarettes, uncomplicated (8) Pulmonary emphysema: Status: Acute Qualifiers: Emphysema type: unilateral Qualified Code(s): J43.0 - Unilateral pulmonary emphysema [MacLeod's syndrome] Category: Medical Code(s): J43.9 - Emphysema, unspecified (9) Rheumatoid arthritis: Status: Acute Qualifiers: Rheumatoid arthritis location: unspecified site Rheumatoid factor presence: unspecified presence Qualified Code(s): M06.9 - Rheumatoid arthritis, unspecified Category: Medical Code(s): M06.9 - Rheumatoid arthritis, unspecified Plan 1. For this acute exacerbation of pulmonary disease requiring increased use of oxygen potentially viral in nature. Also related to the fact that she has continued to smoke. Will maximize pulmonary toileting add steroids and antibiotics. Will continue the patient upon a monitor and continuous pulse ox for evaluation.. Plans to check venous blood gas as needed to adjust if needed to BiPAP and and worst-case to intubate as needed 2. Rheumatoid arthritis the patient is on multiple medicines that can affect her immune response., Noted long history of chronic pain 3. Weight loss and malnutrition will continue with regular diet. Have attempted to soft since she did not bring her dentures with her, in the future may need ovulation for of of why she is having a 14% weight loss of body mass in 4 months. May need complete workup to rule out a malignancy 4. The patient is very frail at this time I do feel there is a significant probability she will decompensate requiring BiPAP and may be in for an intubation over the next couple days if we do not see an improvement. Will continue IV fluid resuscitation as needed without causing fluid overload patient may need rally pack might be helpful.
[2024-02-15] MEDS: LEVALBUTEROL 1.25MG/3ML NEB 1.25 MG IH ×4 (01:08→14:06)
[2024-02-15] MEDS: IPRATROPIUM BROMIDE 0.5 MG/2.5ML SOLUTION IH ×4 (01:08→14:05)
[2024-02-15 01:09] VITALS: PULSE 94; PULSE 98
[2024-02-15 02:01] LABS: Troponin I < 0.01 ng/ml (0.00-0.034)
[2024-02-15 02:08] LABS: Troponin I < 0.01 ng/ml (0.00-0.034)
[2024-02-15 04:00] VITALS: BP 106/68; PULSE 103; RESP 22; TEMP 36.7; O2SAT 95; BMI 25.1
[2024-02-15] MEDS: ACETAMINOPHEN 325MG TAB 650 MG PO (04:09)
[2024-02-15 06:07] VITALS: PULSE 76; PULSE 77; O2SAT 97
[2024-02-15 06:28] LABS: Lactate Venous 1.6 mmol/L (0.4-2.0); VBG Base Excess 0.6 mmol/L (-2.4-2.3); VBG Oxygen Saturation 99.5 % (50-70); VBG PCO2 39.2 mmol/L (35-51); VBG PH 7.42 mmol/L (7.31-7.41); VBG PO2 202.1 mmol/L (28-40); VBG Total CO2 26.2 mmol/L (23-27)
[2024-02-15] MEDS: KETOROLAC 30MG/ML VIAL 15 MG IV (06:30)
[2024-02-15 07:08] LABS: Hematocrit 33.3 % (37.0-47.0); Hemoglobin 10.2 g/dL (12.2-16.2); Lymphocytes # 0.3 K/mm3 (0.7-4.5); Lymphocytes % 7.1 % (10-50); Mean Corpuscular HGB Conc 30.6 g/dL (31.8-35.4); Mean Corpuscular Hemoglobin 26.9 pg (27.0-31.2); Mean Corpuscular Volume 87.9 fl (81-99); Mean Platelet Volume 13.3 fl (7.4-10.4); Neutrophils # 3.8 K/mm3 (1.8-7.8); Neutrophils % 91.7 % (37.0-80.0); Platelet Count 156 K/mm3 (142-424); Red Blood Count 3.79 M/mm3 (4.20-5.40); Red Cell Distribution Width 16.8 % (11.5-17.5); White Blood Count 4.1 K/mm3 (4.8-10.8)
[2024-02-15 07:10] LABS: MANUAL DIFFERENTIAL MANUAL DIFFERENTIAL (MANUAL DIFF)
[2024-02-15 07:38] LABS: Alanine Aminotransferase 16 U/L (12-78); Albumin Level 3.4 g/dl (3.5-5.0); Albumin/Globulin Ratio 1.5 (1.1-1.8); Alkaline Phosphatase 54 U/L (38-126); Aspartate Amino Transferase 34 U/L (14-36); Bilirubin,Total 0.4 mg/dl (0.2-1.3); Blood Urea Nitrogen 12 mg/dl (7-17); Calcium 7.8 mg/dl (8.4-10.2); Carbon Dioxide 25 mmol/L (22.0-30.0); Chloride 105 mmol/L (98-107); Creatinine Clearance Estimated 47 mL/min (50-200); Estimated Glomerular Filt Rate 64 ml/min (>60); GFR (African American) 77 ML/MIN (>60); Globulin 2.2 g/dL (1.3-3.2); Glucose 115 mg/dl (74-100); Sodium 136 mmol/L (136-145); Total Protein,Serum 5.6 g/dl (6.3-8.2)
[2024-02-15 07:58] LABS: Hypochromasia 2+; Lymphocytes % 4 % (10-50); Neutrophils % 96 % (42-76); Platelet Estimate Normal; Total Cells Counted 100
[2024-02-15 08:00] VITALS: BP 115/74; PULSE 88; RESP 17; TEMP 36.8; O2SAT 93
[2024-02-15] MEDS: DOCUSATE SODIUM 100 MG CAPSULE PO (08:50)
[2024-02-15] MEDS: guaiFENesin 600 MG TAB.ER.12H PO (08:50)
[2024-02-15] MEDS: ENOXAPARIN 40MG/0.4ML SYRINGE 40 MG SUBCUT (08:50)
[2024-02-15] MEDS: METHYLPREDNISOLONE SOD SUCC 40MG VIAL 40 MG IV (08:50)
[2024-02-15 09:05] LABS: Free T4 (Free Thyroxine) 1.05 ng/dl (0.78-2.19)
[2024-02-15 09:22] LABS: NT Pro Brain Natriuretic Pep. 578 pg/mL (0-125)
[2024-02-15 09:40] LABS: Anion Gap 9.5 mEq/L (5-15); Potassium 3.5 mmoL/L (3.5-5.1)
[2024-02-15 09:43] LABS: Magnesium 2.3 mg/dl (1.6-2.3)
[2024-02-15 09:44] LABS: Thyroid Stimulating Hormone 0.44 uIU/mL (0.465-4.68)
[2024-02-15 09:45] LABS: Hemoglobin A1C 5.7 % (4.0-6.0)
[2024-02-15] MEDS: BUDESONIDE 0.5MG/2ML NEB 0.5 MG IH (10:03)
[2024-02-15 10:04] VITALS: PULSE 86; PULSE 88; O2SAT 96
[2024-02-15 11:29] VITALS: BMI 25.1
[2024-02-15] MEDS: FLUTICASONE/UMECLIDIN/VILANTER 100/62.5/25MCG INHALER 1 PUFF IH (11:41)
--- NOTE | 2024-02-15 14:00 | EXP.DC.SUM ---
General Admission date:: 02/14/24 HPI HPI HPI: Ms. Gonzalez is a 63-year-old female that is well-known to us. She has come in today little worse than she normally is. Complaining of shortness of breath cough being ill for approximately a week, Patient has been seen by the ER and she has been admitted at least 3 times in the last 6 months.. Patient has over a [id number] history of smoking. Patient's weight has decreased from October 21 129 pounds to 111 pounds now. Are approximately a 14% body weight loss in 4 months. She looks more ill than she normally does and malnourished. I have spoken with the ER physician and examined her old records and present labs and chest x-ray. Remarkably her labs do not show anything particularly concerning at this time. Chest x-ray just shows chronic changes no acute, no accumulation of fluid.. The ER provider has given the equivalent of 6 nebulizers steroids antibiotics with very little improvement in the patient's condition. Most concerning is her lack of improvement with all she has received in the emergency room. She is still requiring oxygen and looks very frail and worn out. I spoke to the patient my concerns that if she did not improve if she worsened I might have to put her on BiPAP and if that did not work to possibly intubate her. So discussed with her what that meant she understood that and she decided to be a DNR/DNI. Have received a phone call from the nurse on the floor that the patient has changed her mind she is now full code. I do feel that there is a significant chance of decompensation in this patient over the next few days if treatment does not start to have some effect.. So I do agree with the ER provider that she needs to be admitted at this time. I will keep her on monitor cardiac and continuous ox monitoring while on the floor maximizing pulmonary toileting continuing antibiotics adding steroids and will make sure she gets her necessary home medications restarted as soon as possible. Hospital Course Hospital Course Hospital Course: Janee Gonzalez is a 63 year old female who was admitted for COPD exacerbation. #Acute hypoxic respiratory failure #Acute COPD exacerbation #Suspected community acquired pneumonia - Clinically improved with Duoneb and Pulmicort breathing treatments, prednisone, antibiotics. - Weaned from 2L to room air. - Discharged with Trelegy 100, prednisone and levofloxacin for 4 more days. - Will follow-up with pulmonolgy within 1 week. Exam Data for Last 24 hours Vital signs and Labs for Last 24 Hours: Temp Pulse Resp BP Pulse Ox O2 Del Method O2 Flow Rate 98.3 F 86 17 115/74 96 Room Air 2 02/15/24 08:00 02/15/24 10:04 02/15/24 08:00 02/15/24 08:00 02/15/24 10:04 02/15/24 12:48 02/15/24 10:04 Laboratory Results - last 24 hr 02/14/24 19:07: VBG pH 7.40, VBG pCO2 42.8, VBG pO2 57.7 H, VBG HCO3 25.8, VBG Total CO2 27.1 H, VBG O2 Saturation 90.1 H, VBG Base Excess 1.0, VBG Lactic Acid 1.2 02/14/24 19:36: WBC 5.6, RBC 3.89 L, Hgb 10.7 L, Hct 34.0 L, MCV 87.4, MCH 27.5, MCHC 31.5 L, RDW 16.9, Plt Count 182, MPV 12.2 H, Neut % (Auto) 80.3 H, Lymph % (Auto) 17.1, [place] % (Auto) 2.2, Eos % (Auto) 0.0 L, Baso % (Auto) 0.2, Neut # (Auto) 4.5, Lymph # (Auto) 1.0, [place] # (Auto) 0.1, Eos # (Auto) 0.0, Baso # (Auto) 0.0, Sodium 138, Potassium 3.8, Chloride 106, Carbon Dioxide 27, Anion Gap 8.8, BUN 11, Creatinine 1.00, Estimated Creat Clear 54, Estimated GFR 56 L, Est GFR ( Amer) 68, Glucose 77, Calcium 8.5, Total Bilirubin 0.4, AST 36, ALT 17, Alkaline Phosphatase 60, Troponin I < 0.01, Total Protein 6.3, Albumin 3.6, Globulin 2.7, Albumin/Globulin Ratio 1.3 02/14/24 22:53: Troponin I < 0.01 02/15/24 01:25: Troponin I < 0.01 02/15/24 06:00: VBG pH 7.42 H, VBG pCO2 39.2, VBG pO2 202.1 H, VBG HCO3 25.0, VBG Total CO2 26.2, VBG O2 Saturation 99.5 H, VBG Base Excess 0.6, VBG Lactic Acid 1.6 02/15/24 06:13: WBC 4.1 L D, RBC 3.79 L, Hgb 10.2 L, Hct 33.3 L, MCV 87.9, MCH 26.9 L, MCHC 30.6 L, RDW 16.8, Plt Count 156, MPV 13.3 H, Neut % (Auto) 91.7 H, Lymph % (Auto) 7.1 L, [place] % (Auto) 1.0 L, Eos % (Auto) 0.0 L, Baso % (Auto) 0.0 L, Neut # (Auto) 3.8, Lymph # (Auto) 0.3 L, [place] # (Auto) 0.0 L, Eos # (Auto) 0.0, Baso # (Auto) 0.0, Total Counted 100, Neutrophils % (Manual) 96 H, Lymphocytes % (Manual) 4 L, Platelet Estimate Normal, Hypochromasia 2+, Sodium 136, Potassium 3.5, Chloride 105, Carbon Dioxide 25, Anion Gap 9.5, BUN 12, Creatinine 0.90, Estimated Creat Clear 47, Estimated GFR 64, Est GFR ( Amer) 77, Glucose 115 H D, Hemoglobin A1c 5.7, Lactate 1.0, Calcium 7.8 L, Magnesium 2.3, Total Bilirubin 0.4, AST 34, ALT 16, Alkaline Phosphatase 54, NT-Pro-B Natriuret Pep 578 H, Total Protein 5.6 L, Albumin 3.4 L, Globulin 2.2, Albumin/Globulin Ratio 1.5, TSH 0.44 L, Free T4 1.05 I & O for Last 24 hours: Intake & Output 02/12/24 02/13/24 02/14/24 02/15/24 23:59 23:59 23:59 23:59 Intake Total 620 / 620 Output Total 0 / 0 Balance 620 / 620 Weight 50.666 kg 50.66 kg Constitutional Constitutional: no acute distress *Routine HEENT Exam Head: Present normocephalic Eye: Present EOMI and PERRL ENT: Present mucous membranes moist *Routine Neck Exam Neck: Present supple; Absent lymphadenopathy *Routine Respiratory Exam Respiratory: Present CTA bilaterally *Routine Cardiovascular Exam Cardiovascular: Present RRR *Routine Abdominal Exam Abdominal: Present soft and normoactive bowel sounds; Absent tenderness *Routine Extremities Exam Extremities: Absent cyanosis, clubbing or edema *Routine Skin Exam Skin: Present warm; Absent rash *Routine Neurological Exam Neurological: Present alert and oriented X3 Results Data Completed and Pending Labs on day of discharge: Labs from last 24 hours 02/15/24 02/15/24 02/15/24 06:13 06:00 01:25 WBC 4.1 L D RBC 3.79 L Hgb 10.2 L Hct 33.3 L MCV 87.9 MCH 26.9 L MCHC 30.6 L RDW 16.8 Plt Count 156 MPV 13.3 H Neut % (Auto) 91.7 H Lymph % (Auto) 7.1 L [place] % (Auto) 1.0 L Eos % (Auto) 0.0 L Baso % (Auto) 0.0 L Neut # (Auto) 3.8 Lymph # (Auto) 0.3 L [place] # (Auto) 0.0 L Eos # (Auto) 0.0 Baso # (Auto) 0.0 Total Counted 100 Neutrophils % (Manual) 96 H Lymphocytes % (Manual) 4 L Platelet Estimate Normal Hypochromasia 2+ VBG pH 7.42 H VBG pCO2 39.2 VBG pO2 202.1 H VBG HCO3 25.0 VBG Total CO2 26.2 VBG O2 Saturation 99.5 H VBG Base Excess 0.6 VBG Lactic Acid 1.6 Sodium 136 Potassium 3.5 Chloride 105 Carbon Dioxide 25 Anion Gap 9.5 BUN 12 Creatinine 0.90 Estimated Creat Clear 47 Estimated GFR 64 Est GFR ( Amer) 77 Glucose 115 H D Hemoglobin A1c 5.7 Lactate 1.0 Calcium 7.8 L Magnesium 2.3 Total Bilirubin 0.4 AST 34 ALT 16 Alkaline Phosphatase 54 Troponin I < 0.01 NT-Pro-B Natriuret Pep 578 H Total Protein 5.6 L Albumin 3.4 L Globulin 2.2 Albumin/Globulin Ratio 1.5 TSH 0.44 L Free T4 1.05 02/14/24 02/14/24 02/14/24 22:53 19:36 19:07 WBC 5.6 RBC 3.89 L Hgb 10.7 L Hct 34.0 L MCV 87.4 MCH 27.5 MCHC 31.5 L RDW 16.9 Plt Count 182 MPV 12.2 H Neut % (Auto) 80.3 H Lymph % (Auto) 17.1 [place] % (Auto) 2.2 Eos % (Auto) 0.0 L Baso % (Auto) 0.2 Neut # (Auto) 4.5 Lymph # (Auto) 1.0 [place] # (Auto) 0.1 Eos # (Auto) 0.0 Baso # (Auto) 0.0 Total Counted Neutrophils % (Manual) Lymphocytes % (Manual) Platelet Estimate Hypochromasia VBG pH 7.40 VBG pCO2 42.8 VBG pO2 57.7 H VBG HCO3 25.8 VBG Total CO2 27.1 H VBG O2 Saturation 90.1 H VBG Base Excess 1.0 VBG Lactic Acid 1.2 Sodium 138 Potassium 3.8 Chloride 106 Carbon Dioxide 27 Anion Gap 8.8 BUN 11 Creatinine 1.00 Estimated Creat Clear 54 Estimated GFR 56 L Est GFR ( Amer) 68 Glucose 77 Hemoglobin A1c Lactate Calcium 8.5 Magnesium Total Bilirubin 0.4 AST 36 ALT 17 Alkaline Phosphatase 60 Troponin I < 0.01 < 0.01 NT-Pro-B Natriuret Pep Total Protein 6.3 Albumin 3.6 Globulin 2.7 Albumin/Globulin Ratio 1.3 TSH Free T4 DS: Diagnosis Discharge Diagnosis (1) Acute exacerbation of chronic obstructive pulmonary disease: Status: Acute Code(s): J44.1 - Chronic obstructive pulmonary disease with (acute) exacerbation (2) Pneumonia: Status: Acute Code(s): J18.9 - Pneumonia, unspecified organism Qualifiers: Laterality: bilateral Lung location: unspecified part of lung Pneumonia type: due to unspecified organism Qualified Code(s): J18.9 - Pneumonia, unspecified organism (3) Acute hypoxemic respiratory failure: Status: Acute Code(s): J96.01 - Acute respiratory failure with hypoxia (4) Acute viral syndrome: Status: Acute Code(s): B34.9 - Viral infection, unspecified (5) Shortness of breath: Status: Acute Code(s): R06.02 - Shortness of breath (6) Fibrosis of lung: Status: Acute Code(s): J84.10 - Pulmonary fibrosis, unspecified (7) Smoking greater than 30 pack years: Status: Acute Code(s): F17.210 - Nicotine dependence, cigarettes, uncomplicated (8) Pulmonary emphysema: Status: Acute Code(s): J43.9 - Emphysema, unspecified Qualifiers: Emphysema type: unilateral Qualified Code(s): J43.0 - Unilateral pulmonary emphysema [MacLeod's syndrome] (9) Rheumatoid arthritis: Status: Acute Code(s): M06.9 - Rheumatoid arthritis, unspecified Qualifiers: Rheumatoid arthritis location: unspecified site Rheumatoid factor presence: unspecified presence Qualified Code(s): M06.9 - Rheumatoid arthritis, unspecified Meds Home Medications and Allergies Home Medications ?Medication ?Instructions ?Recorded ?Confirmed ?Type adalimumab 40 mg/0.8 mL 40 mg SQ WEEKLY 07/16/21 02/15/24 History subcutaneous pen kit (Humira Pen) escitalopram oxalate 20 mg tablet 20 mg PO DAILY 07/16/21 02/15/24 History hydroxychloroquine 200 mg tablet 200 mg PO DAILY 07/16/21 02/15/24 History albuterol sulfate 2.5 mg/3 mL 2.5 mg inhalation TIDP PRN Wheezing 06/24/23 02/15/24 History (0.083 %) solution for nebulization duloxetine 60 mg capsule,delayed 60 mg PO BID 06/24/23 02/15/24 History release gabapentin 800 mg tablet 800 mg PO BID 06/24/23 02/15/24 History omeprazole 40 mg capsule,delayed 40 mg PO DAILY 06/24/23 02/15/24 History release cyanocobalamin (vitamin B-12) 1,000 mcg IM MONTHLY 11/23/23 02/15/24 History 1,000 mcg/mL injection solution hydrocodone 10 mg-acetaminophen 0.5 tab PO BIDP PRN Moderate Pain 11/23/23 02/15/24 History 325 mg tablet (Scale Score 5-6) cariprazine 1.5 mg capsule 1.5 mg PO DAILY 02/15/24 02/15/24 History (Vraylar) fluticasone fur. 100 mcg-umeclid 1 inh inhalation DAILY 30 days #60 02/15/24 Rx 62.5 mcg-vilant 25 mcg ea inhalat.powder (Trelegy Ellipta) levofloxacin 750 mg tablet 750 mg PO DAILY 4 days #4 tabs 02/15/24 Rx prednisone 20 mg tablet 20 mg PO DAILY 4 days #4 tabs 02/15/24 Rx albuterol sulfate 90 mcg/actuation 4 inh inhalation Q4H PRN shortness 02/22/24 Rx aerosol inhaler of breath or wheezing #8.5 grams amoxicillin 875 mg-potassium 1 tab PO BID 10 days #20 tabs 02/22/24 Rx clavulanate 125 mg tablet benzonatate 100 mg capsule 100 mg PO TID PRN cough 5 days #20 02/22/24 Rx caps bjnpkfatxzhoiyt-pzawtmwxdhpfolx-GI 5 ml PO Q6H PRN cold symptoms 7 02/22/24 Rx 2 mg-30 mg-10 mg/5 mL oral syrup days #118 mL New Prescriptions to Start Prescriptions: [id number]-[id number]-[id number] [Trelegy Ellipta] Fuentes Zapata levofloxacin Jodi,Fuentes prednisone Fuentes Zapata Allergies Allergy/AdvReac Type Severity Reaction Status Date / Time No Known Allergies Allergy Verified 12/05/23 12:42 Discharge Plan Disposition Patient Disposition: Home, Self-Care Condition: Fair Follow up Plan Follow up with: Danyelle Hawley MD [Physician] - 03/04/24 1:00 pm Patsy Hair [Primary Care Provider] - 02/21/24 10:45 am Prescriptions/Medication Reconciliation: New Trelegy Ellipta 100-62.5-25 mcg Blister With Device 1 inh inhalation DAILY 30 Days Qty: 60 0RF levofloxacin 750 mg tablet 750 mg PO DAILY 4 Days Qty: 4 0RF prednisone 20 mg tablet 20 mg PO DAILY 4 Days Qty: 4 0RF Continued hydroxychloroquine 200 MG tablet 200 mg PO DAILY escitalopram oxalate 20 MG tablet 20 mg PO DAILY Humira Pen 40 MG/0.8 ML pen injector kit 40 mg SQ WEEKLY Rx Instructions: PATIENT TAKES ON MONDAYS omeprazole 40 mg capsule,delayed release(DR/EC) 40 mg PO DAILY gabapentin 800 mg tablet 800 mg PO BID albuterol sulfate 2.5 MG/NEB solution for nebulization 2.5 mg inhalation TIDP PRN (Reason: Wheezing) duloxetine 60 mg capsule,delayed release(DR/EC) 60 mg PO BID hydrocodone-acetaminophen 10-325 mg tablet 0.5 tab PO BIDP PRN (Reason: Moderate Pain (Scale Score 5-6)) cyanocobalamin (vitamin B-12) 1,000 mcg/mL solution 1,000 mcg IM MONTHLY Vraylar 1.5 mg capsule 1.5 mg PO DAILY No Action albuterol sulfate 90 mcg/actuation HFA aerosol inhaler 4 inh inhalation Q4H PRN (Reason: shortness of breath or wheezing) Qty: 8.5 0RF Rx Instructions: 4 puffs every 4 hours for 48 hours then as needed for shortness of breath or wheezing following benzonatate 100 mg capsule 100 mg PO TID PRN (Reason: cough) 5 Days Qty: 20 0RF ctbhrhcallbubfr-jjtiqmfmt-PM 2-30-10 mg/5 mL syrup 5 ml PO Q6H PRN (Reason: cold symptoms) 7 Days Qty: 118 0RF amoxicillin-pot clavulanate 875-125 mg tablet 1 tab PO BID 10 Days Qty: 20 0RF Problem Reconciliation Problems Reviewed?: Yes Patient Discharge Instructions Print Language: [place]i Providers Primary Care Provider: Patsy Hair Admit Provider: Fuentes Zapata Attending Provider: Fuentes Zapata
[2024-02-15] MEDS: SODIUM CHLORIDE 3% 15ML NEB 3 ML IH (14:07)
[2024-02-15 14:08] VITALS: PULSE 93; PULSE 95; RESP 15; O2SAT 91
--- NOTE | 2024-02-20 11:20 | SW/DCPLANNER ---
Phoned patient x2 and left a call back number. Ish Castro [employer]
== END 2024-02-15 15:00 | disposition home or self-care (01) ==
LOC: ER 22:29 → 2ND 23:21
PROVIDERS: Nurse Practitioner Family; Admitting Provider Student in an Organized Health Care Education/Training Program; Emergency Provider Emergency Medicine; PCP Family Medicine; Visit Provider Student in an Organized Health Care Education/Training Program
DX: J44.1 Chronic obstructive pulmonary disease with (acute) exacerbation (principal); J18.9 Pneumonia, unspecified organism; J96.01 Acute respiratory failure with hypoxia; F17.210 Nicotine dependence, cigarettes, uncomplicated; J43.0 Unilateral pulmonary emphysema [MacLeod's syndrome]; M06.9 Rheumatoid arthritis, unspecified; Z79.69 Long term (current) use of other immunomodulators and immunosuppressants; Z79.51 Long term (current) use of inhaled steroids; Z79.01 Long term (current) use of anticoagulants
CPT/HCPCS: 36415; 71045; 80053; 82803; 83036; 83605; 83735; 83880; 84439; 84443; 84484; 85007; 85025; 85027; 93005; 94640; 99291; G0378; J0696; J1650; J1885; J2919; J3475; J7614; J7620; J7644

== ENCOUNTER 2024-02-22 16:52 | Emergency (ER) | payer MEDICARE, OTHER, SELFPAY ==
--- NOTE | 2024-02-22 16:53 | ECG_ITS ---
APPROVED REPORT Exam: Resting ECG HR:100 bpm ECG Measurements Heart Rate 100 AXES OK 144 P 69 QRSd 73 QRS 83 QT 347 T 79 QTc 404 Conclusion SINUS TACHYCARDIA NONSPECIFIC ST & T-WAVE ABNORMALITY ABNORMAL RHYTHM ECG UNCONFIRMED REPORT Electronically signed by : Braulio Wu, 02/22/2024 23:16:25
[2024-02-22 17:01] VITALS: PULSE 101; RESP 20; TEMP 36.8; O2SAT 88; BMI 24.6
[2024-02-22 17:07] VITALS: O2SAT 93
[2024-02-22 17:30] VITALS: BP 125/84; PULSE 97; O2SAT 91
--- NOTE | 2024-02-22 17:42 | XR_ITS ---
PROCEDURE INFORMATION: Exam: XR Chest Exam date and time: 02/22/2024 5:50 PM Age: 63 years old Clinical indication: Dyspnea TECHNIQUE: Imaging protocol: Radiologic exam of the chest. Views: 1 view. COMPARISON: CR XR CHEST PORTABLE 02/14/2024 7:17 PM FINDINGS: Lungs: No evidence of acute pulmonary disease or infiltrates Pleural spaces: No large effusion or pneumothorax. Heart/Mediastinum: Stable cardiac and mediastinal contours. Diaphragm: There is elevation of the right hemidiaphragm. Bones/joints: No evidence of acute osseous abnormalities within the visualized portions of the thoracic spine and ribs. Osseous structures appear appropriate for patient age. IMPRESSION: No dense parenchymal consolidation, pleural effusion, or pneumothorax.
[2024-02-22 17:46] LABS: Basophils % 0.4 % (0.1-2.0); Eosinophils # 0.1 K/mm3 (0.0-0.4); Eosinophils % 0.8 % (0.1-12.0); Hematocrit 38.7 % (37.0-47.0); Hemoglobin 12.3 g/dL (12.2-16.2); Lymphocytes # 2.3 K/mm3 (0.7-4.5); Lymphocytes % 21.7 % (10-50); Mean Corpuscular HGB Conc 31.8 g/dL (31.8-35.4); Mean Corpuscular Hemoglobin 27.5 pg (27.0-31.2); Mean Corpuscular Volume 86.4 fl (81-99); Mean Platelet Volume 13.6 fl (7.4-10.4); Monocytes # 0.5 K/mm3 (0.1-1.0); Monocytes % 4.8 % (1.7-9.3); Neutrophils # 7.6 K/mm3 (1.8-7.8); Neutrophils % 72.1 % (37.0-80.0); Platelet Count 211 K/mm3 (142-424); Red Blood Count 4.48 M/mm3 (4.20-5.40); Red Cell Distribution Width 16.4 % (11.5-17.5); White Blood Count 10.5 K/mm3 (4.8-10.8)
[2024-02-22 17:51] LABS: Albumin Level 3.9 g/dl (3.5-5.0); Chloride 107 mmol/L (98-107); Potassium 3.5 mmoL/L (3.5-5.1); Sodium 142 mmol/L (136-145)
--- NOTE | 2024-02-22 17:52 | ED_ITS ---
Discharge Plan Disposition Patient Disposition: Home, Self-Care Prescriptions Prescriptions: New albuterol sulfate 90 mcg/actuation HFA aerosol inhaler 4 inh inhalation Q4H PRN (Reason: shortness of breath or wheezing) Qty: 8.5 0RF Rx Instructions: 4 puffs every 4 hours for 48 hours then as needed for shortness of breath or wheezing following benzonatate 100 mg capsule 100 mg PO TID PRN (Reason: cough) 5 Days Qty: 20 0RF rxfbnvbnzpmxzov-ucrbanlli-YA 2-30-10 mg/5 mL syrup 5 ml PO Q6H PRN (Reason: cold symptoms) 7 Days Qty: 118 0RF amoxicillin-pot clavulanate 875-125 mg tablet 1 tab PO BID 10 Days Qty: 20 0RF No Action hydroxychloroquine 200 MG tablet 200 mg PO DAILY escitalopram oxalate 20 MG tablet 20 mg PO DAILY Humira Pen 40 MG/0.8 ML pen injector kit 40 mg SQ WEEKLY Rx Instructions: PATIENT TAKES ON MONDAYS omeprazole 40 mg capsule,delayed release(DR/EC) 40 mg PO DAILY gabapentin 800 mg tablet 800 mg PO BID albuterol sulfate 2.5 MG/NEB solution for nebulization 2.5 mg inhalation TIDP PRN (Reason: Wheezing) duloxetine 60 mg capsule,delayed release(DR/EC) 60 mg PO BID hydrocodone-acetaminophen 10-325 mg tablet 0.5 tab PO BIDP PRN (Reason: Moderate Pain (Scale Score 5-6)) cyanocobalamin (vitamin B-12) 1,000 mcg/mL solution 1,000 mcg IM MONTHLY Vraylar 1.5 mg capsule 1.5 mg PO DAILY Trelegy Ellipta 100-62.5-25 mcg Blister With Device 1 inh inhalation DAILY 30 Days Qty: 60 0RF levofloxacin 750 mg tablet 750 mg PO DAILY 4 Days Qty: 4 0RF prednisone 20 mg tablet 20 mg PO DAILY 4 Days Qty: 4 0RF Activity Restrictions/Add. Instructions Additional Instructions/Restrictions: Please follow-up with your primary care doctor early next week and return with any significant worsening of your symptoms. Clinical Impressions Clinical Impression: Acute exacerbation of chronic obstructive pulmonary disease, Influenza A Print Language Print Language: French Discharge ED Provider: Hollis Wu General Adult HPI General Chief complaint: Shortness of Breath/Dyspnea Stated complaint: Shortness of breath Time Seen by Provider: 02/22/24 17:37 Mode of Arrival: EMS Source of Information: Patient and EMS Limitations: No Limitations Description of Symptoms (Recalled from ER Triage Doc. by RN): pt c/o SOA and a productive cough with clear spututm. pt was seen here in the ED on 02/13, then d/c from med surg on 02/14. pt had a dx of PNA. pt reports she was never told anything about prescriptions so if any were called in she never picked them up. Pt states she is not feeling any worse shes just not feeling better. pt is 88% on RA, once placed on 2LNC she wewnt up to 93% pt received 1 duo neb and 125mg IV solumedrol in route. History of Present Illness HPI narrative: Patient is a 63-year-old female with a history of COPD presents today with increased cough sputum production shortness of breath. She does not wear supplemental oxygen at home. Denies any significant fevers or chills. States she has had recent hospitalizations. She did receive a DuoNeb and Solu-Medrol en route by EMS. Related Data Home Medications ?Medication ?Instructions ?Recorded ?Confirmed adalimumab 40 mg/0.8 mL 40 mg SQ WEEKLY 07/16/21 02/15/24 subcutaneous pen kit (Humira Pen) escitalopram oxalate 20 mg tablet 20 mg PO DAILY 07/16/21 02/15/24 hydroxychloroquine 200 mg tablet 200 mg PO DAILY 07/16/21 02/15/24 albuterol sulfate 2.5 mg/3 mL 2.5 mg inhalation TIDP PRN Wheezing 06/24/23 02/15/24 (0.083 %) solution for nebulization duloxetine 60 mg capsule,delayed 60 mg PO BID 06/24/23 02/15/24 release gabapentin 800 mg tablet 800 mg PO BID 06/24/23 02/15/24 omeprazole 40 mg capsule,delayed 40 mg PO DAILY 06/24/23 02/15/24 release cyanocobalamin (vitamin B-12) 1,000 mcg IM MONTHLY 11/23/23 02/15/24 1,000 mcg/mL injection solution hydrocodone 10 mg-acetaminophen 0.5 tab PO BIDP PRN Moderate Pain 11/23/23 02/15/24 325 mg tablet (Scale Score 5-6) cariprazine 1.5 mg capsule 1.5 mg PO DAILY 02/15/24 02/15/24 (Vraylar) Previous Rx's ?Medication ?Instructions ?Recorded fluticasone fur. 100 mcg-umeclid 1 inh inhalation DAILY 30 days #60 02/15/24 62.5 mcg-vilant 25 mcg ea inhalat.powder (Trelegy Ellipta) levofloxacin 750 mg tablet 750 mg PO DAILY 4 days #4 tabs 02/15/24 prednisone 20 mg tablet 20 mg PO DAILY 4 days #4 tabs 02/15/24 albuterol sulfate 90 mcg/actuation 4 inh inhalation Q4H PRN shortness 02/22/24 aerosol inhaler of breath or wheezing #8.5 grams amoxicillin 875 mg-potassium 1 tab PO BID 10 days #20 tabs 02/22/24 clavulanate 125 mg tablet benzonatate 100 mg capsule 100 mg PO TID PRN cough 5 days #20 02/22/24 caps fyvhkgnyuemyrwp-cxarszwojknzdho-JM 5 ml PO Q6H PRN cold symptoms 7 02/22/24 2 mg-30 mg-10 mg/5 mL oral syrup days #118 mL Allergies Allergy/AdvReac Type Severity Reaction Status Date / Time No Known Allergies Allergy Verified 12/05/23 12:42 [facility] Disclaimer: The information contained in this section may have been updated after the patient was seen, as this information can be updated by other users. Medical History (Updated 02/22/24 @ 19:17 by Hollis Wu MD) COPD with respiratory distress, acute Osteopenia Scoliosis Hypokalemia Abdominal pain Ventral incisional hernia without obstruction or gangrene Acute pain of left knee Abdominal pain JAMISON (acute kidney injury) Tobacco dependence in remission Nausea & vomiting Acute colitis Hypokalemia Urinary tract infection Acute exacerbation of chronic obstructive pulmonary disease (COPD) Low back pain Bilateral knee pain Right shoulder pain Acute exacerbation of chronic obstructive pulmonary disease Fibrosis of lung Smoking greater than 30 pack years Pulmonary emphysema ILD (interstitial lung disease) HSV-1 infection Urinary tract infection Pneumonia Urinary incontinence Osteoarthritis Rheumatoid arthritis History of back pain Surgical History History of hip replacement History of colonoscopy History of left hip replacement Family History Other Family history of COPD (chronic obstructive pulmonary disease) Family history of arthritis Family history of cancer Family history of diabetes mellitus type I Family history of hypertension Social History Smoking Status: Current every day smoker tobacco type: cigarettes packs per day: 1 alcohol intake: former substance use type: denies use current occupational status: unemployed Travel in the last 8 weeks: None household members: spouse and children housing: apartment caffeine: Yes Have you lived/traveled outside [place] in past 30 days?: No Contact w/someone who lives/traveled outside [place] past 30 days?: No Exposure to someone with infectious disease in past 14 days?: No Do you have a fever (greater than 100.4 F or 38 C)?: No Have you tested positive for COVID-19: No Exposed to someone with COVID-19 in past 14 days?: No Do you have a sore throat?: No Do you have a cough?: No Do you have any weakness?: No Do you have any diarrhea?: No Are you experiencing any unusual bleeding?: No Do you have any muscle aches/pain?: No Do you have any abdominal pain?: No Are you experiencing loss of taste or smell?: No Other Medical History Have you received the Flu Vaccine for this season: No Have you received the Pneumonia Vaccine: No ROS Obtained: Yes All systems reviewed & no additional complaints except as documented Physical Exam General General appearance: alert and in no apparent distress Respiratory Respiratory exam: Present other (No significant respiratory distress she is wheezing diffusely does have mild prolonged expiratory phase no focal adventitious lung sounds she is speaking to me in full sentences oxygen saturations with no supplemental oxygen 90% on my exam) Cardiovascular Cardiovascular exam: Present regular rate and normal rhythm Neurological Exam Neurological exam: Present alert and oriented X3 Medical Decision Making Medical Records Screening: Per USPSTF and CDC recommendations, given the prevalence of disease in our region, it is our hospital?s policy to screen for HIV and viral Hepatitis for all patients aged 18 and over and those with ongoing risk factors. Tin Inquiry Pt receiving controlled substance: No Vital Signs: 02/22/24 17:01 02/22/24 17:07 02/22/24 17:30 Temperature 98.2 F Temperature Source Oral Pulse Rate 97 H Pulse Rate [Left] 101 H Respiratory Rate 20 Blood Pressure 125/84 Blood Pressure Source [Right Arm] Automatic Cuff Blood Pressure Position [Right Arm] Sitting 02 Sat by Pulse Oximetry 88 L 93 L 91 L Oxygen Delivery Method Room Air Nasal Cannula Oxygen Flow Rate (LPM) 2 02/22/24 18:00 Temperature Temperature Source Pulse Rate 95 H Pulse Rate [Left] Respiratory Rate Blood Pressure 110/80 Blood Pressure Source [Right Arm] Blood Pressure Position [Right Arm] 02 Sat by Pulse Oximetry 91 L Oxygen Delivery Method Oxygen Flow Rate (LPM) Lab Data Lab results reviewed: Yes I reviewed the patient's lab results. Lab Results 02/22/24 16:55: WBC 10.5, RBC 4.48, Hgb 12.3, Hct 38.7, MCV 86.4, MCH 27.5, MCHC 31.8, RDW 16.4, Plt Count 211, MPV 13.6 H, Neut % (Auto) 72.1, Lymph % (Auto) 21.7, [place] % (Auto) 4.8, Eos % (Auto) 0.8, Baso % (Auto) 0.4, Neut # (Auto) 7.6, Lymph # (Auto) 2.3, [place] # (Auto) 0.5, Eos # (Auto) 0.1, Baso # (Auto) 0.0, Sodium 142, Potassium 3.5, Chloride 107, Carbon Dioxide 24, Anion Gap 14.5, BUN 13, Creatinine 1.00, Estimated Creat Clear 47, Estimated GFR 56 L, Est GFR ( Amer) 68, Glucose 197 H, Calcium 9.0, Total Bilirubin 0.5, AST 35, ALT 21, Alkaline Phosphatase 55, Troponin I < 0.01, Total Protein 7.0, Albumin 3.9, Globulin 3.1, Albumin/Globulin Ratio 1.3 02/22/24 18:37: SARS-CoV-2 (PCR) Not detected, Influenza A Untype (PCR) Detected A, Influenza Type B (PCR) Not detected 02/22/24 16:55 02/22/24 16:55 Orders (Tests/Meds): ED MEDICATIONS Discontinued Medications Generic Name Dose Route Start Last Admin Trade Name Freq PRN Reason Stop Dose Admin Albuterol/Ipratropium 3 ml 02/22/24 17:41 02/22/24 18:07 Ipratropium/Albuterol 3 Ml Neb IH 02/22/24 17:42 3 ml ONCE ONE Administration Dexamethasone Sodium Phosphate 10 mg 02/22/24 17:41 02/22/24 18:07 Dexamethasone 4mg/Ml 1ml Vial IV 02/22/24 17:42 10 mg ONCE ONE Administration Lactated Ringer's 1,000 mls @ 999 mls/hr 02/22/24 17:45 02/22/24 18:07 Lactated Ringer's 1000 Ml Bag IV 02/22/24 18:45 999 mls/hr .Q1H1M MARIPOSA Administration Magnesium Sulfate 2 gm in 50 mls @ 50 mls/hr 02/22/24 17:41 02/22/24 18:07 Magnesium Sulfate 2gm/50ml Premix IV 02/22/24 18:40 50 mls/hr ONCE ONE Administration ORDERS Category Date Time Status CXR --portable [XR chest portable] Stat Exams 02/22/24 17:42 Completed CBC w/Auto Diff [Complete Blood Count Auto Diff] Stat Lab 02/22/24 16:55 Completed CMP [Comprehensive Metabolic Panel] Stat Lab 02/22/24 16:55 Completed Rapid PCR Covid and Flu A/B Stat Lab 02/22/24 18:37 Completed Trop I [Troponin I] Stat Lab 02/22/24 16:55 Completed Troponin I Q3H Lab 02/22/24 20:45 Ordered Troponin I Q3H Lab 02/22/24 23:45 Ordered Medical Decision Narrative: 63-year-old presented today with increased cough sputum production wheezing consistent with a COPD exacerbation. Will get a chest x-ray to rule out pneumonia. Nebs steroids magnesium have been administered. She will be swabbed for COVID and flu and will be reassessed after this initial workup is completed. Reassessment 7:16 PM patient appears very well symptomatically improved vital signs have improved serial respiratory exams are normal. No supplemental oxygen is needed. Chest x-ray was performed which I personally interpreted which shows no focal consolidation or acute cardiopulmonary emergency. Labs unremarkable aside from having positive influenza A. Symptoms have been ongoing greater than 48 hours she is not a candidate for antiviral therapy. She is stable for outpatient management symptomatic care has been prescribed also antibiotics if prescribed that she may have a bacterial superinfection on top of her influenza and her COPD exacerbation. Return precautions emphasized patient was discharged in stable condition. Critical Care Critical Care Time Critical Care Time: No
[2024-02-22 17:54] LABS: Alanine Aminotransferase 21 U/L (12-78); Albumin/Globulin Ratio 1.3 (1.1-1.8); Alkaline Phosphatase 55 U/L (38-126); Anion Gap 14.5 mEq/L (5-15); Aspartate Amino Transferase 35 U/L (14-36); Bilirubin,Total 0.5 mg/dl (0.2-1.3); Blood Urea Nitrogen 13 mg/dl (7-17); Carbon Dioxide 24 mmol/L (22.0-30.0); Creatinine Clearance Estimated 47 mL/min (50-200); Estimated Glomerular Filt Rate 56 ml/min (>60); GFR (African American) 68 ML/MIN (>60); Globulin 3.1 g/dL (1.3-3.2); Glucose 197 mg/dl (74-100)
[2024-02-22 18:00] VITALS: BP 110/80; PULSE 95; O2SAT 91
[2024-02-22] MEDS: DEXAMETHASONE 4MG/ML 1ML VIAL 10 MG IV (18:07)
[2024-02-22] MEDS: IPRATROPIUM/ALBUTEROL 3 ML NEB IH (18:07)
[2024-02-22] MEDS: LACTATED RINGERS 1000ML 1,000 ML 999 ML IV (18:07)
[2024-02-22] MEDS: MAGNESIUM SULFATE IN WATER 2 GM/50 ML PIGGYBACK IV (18:07)
[2024-02-22 18:11] LABS: Troponin I < 0.01 ng/ml (0.00-0.034)
[2024-02-22 18:42] LABS: Coronavirus 19, PCR Not Detected (NotDetected); Influenza B, PCR Not Detected (NotDetected)
[2024-02-22 19:09] LABS: Influenza A, PCR Detected (NotDetected)
[2024-02-22 19:15] VITALS: BP 114/71; PULSE 90; RESP 14; TEMP 36.6; O2SAT 98
--- NOTE | 2024-02-22 19:17 | PC.NURSE ---
Patient IV removed. Catheter tip intact. Bleeding controlled.
--- NOTE | 2024-02-22 19:21 | PC.NURSE ---
Patient is in room waiting for ride.
== END 2024-02-22 19:52 | disposition home or self-care (01) ==
PROVIDERS: Emergency Provider Student in an Organized Health Care Education/Training Program; PCP Family Medicine
DX: J44.1 Chronic obstructive pulmonary disease with (acute) exacerbation (principal); R06.02 Shortness of breath; R05.8 Other specified cough
CPT/HCPCS: 71045; 80053; 84484; 85025; 87636; 93005; 96361; 96365; 96374; 99283; J1100; J3475; J7120; J7620

== ENCOUNTER 2024-02-29 16:25 | Outpatient (CLI) | payer MEDICARE, SELFPAY ==
[2024-02-29 17:25] LABS: C-Reactive Protein 63.1 mg/L (0-4)
[2024-03-01 13:09] LABS: Antinuclear Antibodies (ANA) Negative (Negative)
== END 2024-02-29 23:59 | disposition home or self-care (01) ==
LOC: LAB 16:26
PROVIDERS: PCP Family Medicine; Visit Provider Internal Medicine Pulmonary Disease
DX: R06.09 Other forms of dyspnea (principal); J84.9 Interstitial pulmonary disease, unspecified
CPT/HCPCS: 36415; 86038; 86140

== ENCOUNTER 2024-03-28 15:14 | Emergency (ER) | payer MEDICARE, MEDICAID, SELFPAY ==
[2024-03-28 15:32] VITALS: BP 99/64; PULSE 68; RESP 18; TEMP 36.3; O2SAT 98; BMI 25.3
[2024-03-28 15:41] LABS: Coronavirus 19, PCR Not Detected (NotDetected); Influenza A, PCR Not Detected (NotDetected); Influenza B, PCR Not Detected (NotDetected)
--- NOTE | 2024-03-28 16:43 | XR_ITS ---
PROCEDURE INFORMATION: Exam: XR Chest Exam date and time: 03/28/2024 4:55 PM Age: 63 years old Clinical indication: Shortness of breath; Sternal or substernal pain; Additional info: Cp SOA TECHNIQUE: Imaging protocol: Radiologic exam of the chest. Views: 1 view. COMPARISON: CR XR CHEST PORTABLE 02/22/2024 5:50 PM FINDINGS: Lungs: Unremarkable. No consolidation. Pleural spaces: Unremarkable. No pleural effusion. No pneumothorax. Heart/Mediastinum: Unremarkable. No cardiomegaly. Bones/joints: Old left-sided rib fractures redemonstrated. IMPRESSION: Stable chest x-ray with no acute disease.
--- NOTE | 2024-03-28 16:52 | ECG_ITS ---
APPROVED REPORT Exam: Resting ECG HR:85 bpm ECG Measurements Heart Rate 85 AXES VT 160 P 61 QRSd 65 QRS 42 QT 391 T 63 QTc 433 Conclusion SINUS RHYTHM NORMAL ECG Electronically signed by : DIANA PRITCHARD, 03/29/2024 06:03:41
[2024-03-28 16:53] VITALS: BP 138/84; PULSE 87; O2SAT 97
[2024-03-28 16:55] LABS: Basophils % 0.3 % (0.1-2.0); Eosinophils # 0.1 K/mm3 (0.0-0.4); Eosinophils % 0.9 % (0.1-12.0); Hematocrit 37.8 % (37.0-47.0); Hemoglobin 11.6 g/dL (12.2-16.2); Lymphocytes % 37.6 % (10-50); Mean Corpuscular HGB Conc 30.7 g/dL (31.8-35.4); Mean Corpuscular Hemoglobin 26.2 pg (27.0-31.2); Mean Corpuscular Volume 85.5 fl (81-99); Mean Platelet Volume 11.9 fl (7.4-10.4); Monocytes # 0.7 K/mm3 (0.1-1.0); Neutrophils # 5.7 K/mm3 (1.8-7.8); Neutrophils % 53.9 % (37.0-80.0); Platelet Count 352 K/mm3 (142-424); Red Blood Count 4.42 M/mm3 (4.20-5.40); Red Cell Distribution Width 17.6 % (11.5-17.5); White Blood Count 10.6 K/mm3 (4.8-10.8)
[2024-03-28] MEDS: ONDANSETRON 4MG/2ML VIAL 4 MG IV ×2 (16:55→19:22)
--- NOTE | 2024-03-28 16:55 | PC.NURSE ---
xr at bedside
[2024-03-28 17:00] VITALS: BP 116/82; PULSE 90; O2SAT 95
[2024-03-28 17:05] LABS: Albumin Level 4.7 g/dl (3.5-5.0); Chloride 103 mmol/L (98-107); Potassium 3.5 mmoL/L (3.5-5.1); Sodium 140 mmol/L (136-145)
[2024-03-28 17:08] LABS: Alanine Aminotransferase 23 U/L (12-78); Albumin/Globulin Ratio 1.1 (1.1-1.8); Alkaline Phosphatase 64 U/L (38-126); Anion Gap 13.5 mEq/L (5-15); Aspartate Amino Transferase 43 U/L (14-36); Bilirubin,Total 0.4 mg/dl (0.2-1.3); Blood Urea Nitrogen 13 mg/dl (7-17); Calcium 9.2 mg/dl (8.4-10.2); Carbon Dioxide 27 mmol/L (22.0-30.0); Creatinine Clearance Estimated 40 mL/min (50-200); Estimated Glomerular Filt Rate 46 ml/min (>60); GFR (African American) 55 ML/MIN (>60); Globulin 4.2 g/dL (1.3-3.2); Glucose 96 mg/dl (74-100); Lipase 81 U/L (23-300); Total Protein,Serum 8.9 g/dl (6.3-8.2)
[2024-03-28 17:20] LABS: Troponin I < 0.01 ng/ml (0.00-0.034)
[2024-03-28 17:30] VITALS: BP 130/77; PULSE 93; O2SAT 94
--- NOTE | 2024-03-28 17:42 | PC.NURSE ---
ROUNDED ON THE PT. THE PT VOICES THAT SHE DOES NOT NEED ANYTHING AT THIS TIME. CALL LIGHT IS WITHIN REACH OF THE PT.
--- NOTE | 2024-03-28 17:55 | HMH.EDGENADL ---
Discharge Plan Disposition Patient Disposition: Home, Self-Care Condition: Good Prescriptions Prescriptions: New ondansetron 4 mg tablet,disintegrating 4 mg PO DAILY 5 Days Qty: 5 0RF No Action Nurtec ODT 75 mg tablet,disintegrating 75 mg PO ONCE hydroxychloroquine 200 MG tablet 200 mg PO DAILY escitalopram oxalate 20 MG tablet 20 mg PO DAILY Humira Pen 40 MG/0.8 ML pen injector kit 40 mg SQ WEEKLY Rx Instructions: PATIENT TAKES ON MONDAYS omeprazole 40 mg capsule,delayed release(DR/EC) 40 mg PO DAILY gabapentin 800 mg tablet 800 mg PO BID albuterol sulfate 2.5 MG/NEB solution for nebulization 2.5 mg inhalation TIDP PRN (Reason: Wheezing) duloxetine 60 mg capsule,delayed release(DR/EC) 60 mg PO BID cyanocobalamin (vitamin B-12) 1,000 mcg/mL solution 1,000 mcg IM MONTHLY Vraylar 1.5 mg capsule 1.5 mg PO DAILY Trelegy Ellipta 100-62.5-25 mcg Blister With Device 1 inh inhalation DAILY 30 Days Qty: 60 0RF albuterol sulfate 90 mcg/actuation HFA aerosol inhaler 4 inh inhalation Q4H PRN (Reason: shortness of breath or wheezing) Qty: 8.5 0RF Rx Instructions: 4 puffs every 4 hours for 48 hours then as needed for shortness of breath or wheezing following benzonatate 100 mg capsule 100 mg PO TID PRN (Reason: cough) 5 Days Qty: 20 0RF yfobimslhadburd-tyvqtbvku-QC 2-30-10 mg/5 mL syrup 5 ml PO Q6H PRN (Reason: cold symptoms) 7 Days Qty: 118 0RF amoxicillin-pot clavulanate 875-125 mg tablet 1 tab PO BID 10 Days Qty: 20 0RF Referrals Follow up/Referrals: Patsy Hair [Primary Care Provider] - See instructions Activity Restrictions/Add. Instructions Additional Instructions/Restrictions: Rest. Increase your fluid intake. Take Zofran as prescribed. Follow-up with your PCP within 1 week. Return to the ED for worsening of condition. Clinical Impressions Clinical Impression: Nausea & vomiting Qualifiers: Vomiting type: unspecified Qualified Code(s): R11.2 - Nausea with vomiting, unspecified Diarrhea Qualifiers: Diarrhea type: unspecified type Qualified Code(s): R19.7 - Diarrhea, unspecified Instructions Patient Instructions: DI for Diarrhea and Traveler's Diarrhea -- Adult, DI for Diarrhea and Traveler's Diarrhea -- Child, DI for Nausea -- Adult, DI for Nausea -- Child Print Language Print Language: [place] Discharge ED Provider: Ryley Kaplan General Adult HPI <Aga Polo APRN - Last Filed: 03/28/24 21:27> General Chief complaint: Nausea/Vomiting/Diarrhea Stated complaint: chills, diarrhea Time Seen by Provider: 03/28/24 16:40 Mode of Arrival: Ambulatory Source of Information: Patient Limitations: No Limitations Description of Symptoms (Recalled from ER Triage Doc. by RN): Pt presents with c/o diarrhea since yesterday and fatigue/chills since monday. PT states she also has had a decreased appetite. History of Present Illness HPI narrative: Patient is a 63-year-old female presents to the ED with complaints of nausea, vomiting and diarrhea for the past several days. Patient states she has not been around anyone sick that she is aware of. She states she has not been on any recent antibiotics. Denies any abdominal pain. Related Data Home Medications ?Medication ?Instructions ?Recorded ?Confirmed adalimumab 40 mg/0.8 mL 40 mg SQ WEEKLY 07/16/21 02/29/24 subcutaneous pen kit (Humira Pen) escitalopram oxalate 20 mg tablet 20 mg PO DAILY 07/16/21 02/29/24 hydroxychloroquine 200 mg tablet 200 mg PO DAILY 07/16/21 02/29/24 albuterol sulfate 2.5 mg/3 mL 2.5 mg inhalation TIDP PRN Wheezing 06/24/23 02/29/24 (0.083 %) solution for nebulization duloxetine 60 mg capsule,delayed 60 mg PO BID 06/24/23 02/29/24 release gabapentin 800 mg tablet 800 mg PO BID 06/24/23 02/29/24 omeprazole 40 mg capsule,delayed 40 mg PO DAILY 06/24/23 02/29/24 release cyanocobalamin (vitamin B-12) 1,000 mcg IM MONTHLY 11/23/23 02/29/24 1,000 mcg/mL injection solution cariprazine 1.5 mg capsule 1.5 mg PO DAILY 02/15/24 02/29/24 (Vraylar) rimegepant 75 mg disintegrating 75 mg PO ONCE 02/29/24 02/29/24 tablet (Nurtec ODT) Previous Rx's ?Medication ?Instructions ?Recorded fluticasone fur. 100 mcg-umeclid 1 inh inhalation DAILY 30 days #60 02/15/24 62.5 mcg-vilant 25 mcg ea inhalat.powder (Trelegy Ellipta) albuterol sulfate 90 mcg/actuation 4 inh inhalation Q4H PRN shortness 02/22/24 aerosol inhaler of breath or wheezing #8.5 grams amoxicillin 875 mg-potassium 1 tab PO BID 10 days #20 tabs 02/22/24 clavulanate 125 mg tablet benzonatate 100 mg capsule 100 mg PO TID PRN cough 5 days #20 02/22/24 caps rfcrvqgxtkgjnio-rogycpyqozrynvb-PJ 5 ml PO Q6H PRN cold symptoms 7 02/22/24 2 mg-30 mg-10 mg/5 mL oral syrup days #118 mL ondansetron 4 mg disintegrating 4 mg PO DAILY 5 days #5 tabs 03/28/24 tablet Allergies Allergy/AdvReac Type Severity Reaction Status Date / Time No Known Allergies Allergy Verified 02/29/24 15:28 [facility] <Aga Polo APRN - Last Filed: 03/28/24 21:27> [facility] Disclaimer: The information contained in this section may have been updated after the patient was seen, as this information can be updated by other users. Medical History Influenza A Acute exacerbation of chronic obstructive pulmonary disease Acute viral syndrome Shortness of breath COPD with respiratory distress, acute Osteopenia Scoliosis Hypokalemia Abdominal pain Ventral incisional hernia without obstruction or gangrene Acute pain of left knee Abdominal pain JAMISON (acute kidney injury) Tobacco dependence in remission Nausea & vomiting Acute colitis Hypokalemia Urinary tract infection Acute exacerbation of chronic obstructive pulmonary disease (COPD) Low back pain Bilateral knee pain Right shoulder pain Acute exacerbation of chronic obstructive pulmonary disease Fibrosis of lung Smoking greater than 30 pack years Pulmonary emphysema ILD (interstitial lung disease) HSV-1 infection Urinary tract infection Pneumonia Urinary incontinence Osteoarthritis Rheumatoid arthritis History of back pain Surgical History History of hip replacement History of colonoscopy History of left hip replacement Family History Other Family history of COPD (chronic obstructive pulmonary disease) Family history of arthritis Family history of cancer Family history of diabetes mellitus type I Family history of hypertension Social History Smoking Status: Current every day smoker tobacco type: cigarettes packs per day: 1 alcohol intake: former substance use type: denies use current occupational status: unemployed Travel in the last 8 weeks: None household members: spouse and children housing: apartment caffeine: Yes Have you lived/traveled outside [place] in past 30 days?: No Contact w/someone who lives/traveled outside [place] past 30 days?: No Exposure to someone with infectious disease in past 14 days?: No Do you have a fever (greater than 100.4 F or 38 C)?: No Have you tested positive for COVID-19: No Exposed to someone with COVID-19 in past 14 days?: No Do you have a sore throat?: No Do you have a cough?: No Do you have any weakness?: No Do you have any diarrhea?: Yes Are you experiencing any unusual bleeding?: No Do you have any muscle aches/pain?: No Do you have any abdominal pain?: No Are you experiencing loss of taste or smell?: No Other Medical History Have you received the Flu Vaccine for this season: No Have you received the Pneumonia Vaccine: No <Aga Polo APRN - Last Filed: 03/28/24 21:27> ROS Obtained: Yes Systems reviewed as appropriate & no additional complaints except as documented Physical Exam <Aga Polo APRN - Last Filed: 03/28/24 21:27> General General appearance: alert and in no apparent distress Head Head exam: atraumatic and normocephalic Eye Eye exam: Present normal appearance and PERRL ENT ENT exam: Present normal exam Neck Neck exam: Present normal inspection Chest Chest inspection: Present normal inspection and symmetric chest wall rise; Absent tenderness Respiratory Respiratory exam: Present normal lung sounds bilaterally Cardiovascular Cardiovascular exam: Present regular rate Abdominal Exam Abdominal exam: Present soft and normal bowel sounds; Absent tenderness Extremities Exam Extremities exam: Present normal inspection and full ROM Back Exam Back exam: Present normal inspection and full ROM Neurological Exam Neurological exam: Present alert and oriented X3 Psychiatric Psychiatric exam: Present normal affect and normal mood Skin Skin exam: Present warm and dry Medical Decision Making <Aga Polo APRN - Last Filed: 03/28/24 21:27> Medical Records Screening: Per USPSTF and CDC recommendations, given the prevalence of disease in our region, it is our hospital?s policy to screen for HIV and viral Hepatitis for all patients aged 18 and over and those with ongoing risk factors. Tin Inquiry Pt receiving controlled substance: No Tin was queried for this patient: No Vital Signs: 03/28/24 15:32 03/28/24 16:53 03/28/24 17:00 Temperature 97.4 F L Temperature Source Oral Pulse Rate 87 90 Pulse Rate [Right] 68 Respiratory Rate 18 Blood Pressure 138/84 116/82 Blood Pressure [Right Arm] 99/64 L Blood Pressure Mean [Right Arm] 75 Blood Pressure Source Blood Pressure Source [Right Arm] Automatic Cuff Blood Pressure Position Blood Pressure Position [Right Arm] Sitting 02 Sat by Pulse Oximetry 98 97 95 Oxygen Delivery Method Room Air Room Air Room Air 03/28/24 17:30 03/28/24 20:17 Temperature 97.9 F Temperature Source Oral Pulse Rate 93 H 74 Pulse Rate [Right] Respiratory Rate 16 Blood Pressure 130/77 124/72 Blood Pressure [Right Arm] Blood Pressure Mean [Right Arm] Blood Pressure Source Automatic Cuff Blood Pressure Source [Right Arm] Blood Pressure Position Supine Blood Pressure Position [Right Arm] 02 Sat by Pulse Oximetry 94 L Oxygen Delivery Method Room Air Room Air Lab Data Lab Results 03/28/24 15:36: SARS-CoV-2 (PCR) Not detected, Influenza A Untype (PCR) Not detected, Influenza Type B (PCR) Not detected 03/28/24 16:42: WBC 10.6, RBC 4.42, Hgb 11.6 L, Hct 37.8, MCV 85.5, MCH 26.2 L, MCHC 30.7 L, RDW 17.6 H, Plt Count 352, MPV 11.9 H, Neut % (Auto) 53.9, Lymph % (Auto) 37.6, [place] % (Auto) 7.0, Eos % (Auto) 0.9, Baso % (Auto) 0.3, Neut # (Auto) 5.7, Lymph # (Auto) 4.0, [place] # (Auto) 0.7, Eos # (Auto) 0.1, Baso # (Auto) 0.0, Sodium 140, Potassium 3.5, Chloride 103, Carbon Dioxide 27, Anion Gap 13.5, BUN 13, Creatinine 1.20 H, Estimated Creat Clear 40, Estimated GFR 46 L, Est GFR ( Amer) 55 L, Glucose 96, Calcium 9.2, Total Bilirubin 0.4, AST 43 H, ALT 23, Alkaline Phosphatase 64, Troponin I < 0.01, Total Protein 8.9 H D, Albumin 4.7, Globulin 4.2 H, Albumin/Globulin Ratio 1.1, Lipase 81 03/28/24 17:53: Urine Color Yellow, Urine Appearance Sl cloudy, Urine pH 6.0, Ur Specific [place] 1.025, Urine Protein Trace, Urine Glucose (UA) Negative, Urine Ketones Trace, Urine Blood Negative, Urine Nitrate Negative, Urine Bilirubin 1+ A, Urine Urobilinogen 1.0, Ur Leukocyte Esterase Trace, Urine RBC Occasional, Urine WBC 10-20, Ur Squamous Epith Cells 5-10, Urine Bacteria 3+ 03/28/24 16:42 03/28/24 16:42 Orders (Tests/Meds): ED MEDICATIONS Discontinued Medications Generic Name Dose Route Start Last Admin Trade Name Oscar PRN Reason Stop Dose Admin Lactated Ringer's 500 mls @ 999 mls/hr 03/28/24 19:04 03/28/24 19:22 Lactated Ringer's 1000 Ml Bag IV 03/28/24 19:34 999 mls/hr .Q31M ONE Administration Ondansetron HCl 4 mg 03/28/24 16:44 03/28/24 16:55 Ondansetron 4mg/2ml Vial IV 03/28/24 16:45 4 mg ONCE ONE Administration Ondansetron HCl 4 mg 03/28/24 19:04 03/28/24 19:22 Ondansetron 4mg/2ml Vial IV 03/28/24 19:05 4 mg ONCE ONE Administration ORDERS Category Date Time Status CXR --portable [XR chest portable] Stat Exams 03/28/24 16:43 Completed CBC w/Auto Diff [Complete Blood Count Auto Diff] Stat Lab 03/28/24 16:42 Completed CMP [Comprehensive Metabolic Panel] Stat Lab 03/28/24 16:42 Completed Lipase Stat Lab 03/28/24 16:42 Completed Rapid PCR Covid and Flu A/B Stat Lab 03/28/24 15:36 Completed Trop I [Troponin I] Stat Lab 03/28/24 16:42 Completed Urinalysis and Microscopic Stat Lab 03/28/24 17:53 Completed Urine Culture Stat Micro 03/28/24 17:53 Received Medical Decision Narrative: In summary, patient is a 63-year-old female who presents to the ED with complaints of nausea, vomiting and diarrhea x 4 days. Patient states she is unable to eat or drink today due to symptoms. She adds that she had 1 episode of chest pain earlier that lasted approximately 1 hour, describes it as a chest pressure. Chest pressure resolved on its own. She has not been around anyone sick that she is aware of. She has not been on any recent antibiotics. Patient denies any abdominal pain. She has not taken anything prior to arrival. Patient denies fever, chills, body aches, headache, visual disturbances, shortness of breath, abdominal pain, dysuria. Differential diagnosis includes ACS, dissection, pulmonary embolism, pneumonia, pneumothorax, gastroenteritis, viral illness, among others Initial inventions include Zofran. Will obtain hematologic labs and chest x-ray. Initial workup reviewed by me. CBC unremarkable for any leukocytosis, stable H&H. CMP remarkable for creatinine of 1.20, BUN 13. GFR 46. Upon repeat evaluation, patient states her condition has improved. She was able to keep down a bottle of water while in the ED. I discussed with patient that I will send Zofran to the pharmacy. Advised her she will need to follow-up with her PCP within 7 days. We discussed return precautions to the ED and patient verbalized understanding. She was hemodynamically stable and ambulatory without difficulty from the ED. <Rlyey Kaplan MD - Last Filed: 03/28/24 22:06> Vital Signs: 03/28/24 15:32 03/28/24 16:53 03/28/24 17:00 Temperature 97.4 F L Temperature Source Oral Pulse Rate 87 90 Pulse Rate [Right] 68 Respiratory Rate 18 Blood Pressure 138/84 116/82 Blood Pressure [Right Arm] 99/64 L Blood Pressure Mean [Right Arm] 75 Blood Pressure Source Blood Pressure Source [Right Arm] Automatic Cuff Blood Pressure Position Blood Pressure Position [Right Arm] Sitting 02 Sat by Pulse Oximetry 98 97 95 Oxygen Delivery Method Room Air Room Air Room Air 03/28/24 17:30 03/28/24 20:17 Temperature 97.9 F Temperature Source Oral Pulse Rate 93 H 74 Pulse Rate [Right] Respiratory Rate 16 Blood Pressure 130/77 124/72 Blood Pressure [Right Arm] Blood Pressure Mean [Right Arm] Blood Pressure Source Automatic Cuff Blood Pressure Source [Right Arm] Blood Pressure Position Supine Blood Pressure Position [Right Arm] 02 Sat by Pulse Oximetry 94 L Oxygen Delivery Method Room Air Room Air Lab Data Lab Results 03/28/24 15:36: SARS-CoV-2 (PCR) Not detected, Influenza A Untype (PCR) Not detected, Influenza Type B (PCR) Not detected 03/28/24 16:42: WBC 10.6, RBC 4.42, Hgb 11.6 L, Hct 37.8, MCV 85.5, MCH 26.2 L, MCHC 30.7 L, RDW 17.6 H, Plt Count 352, MPV 11.9 H, Neut % (Auto) 53.9, Lymph % (Auto) 37.6, [place] % (Auto) 7.0, Eos % (Auto) 0.9, Baso % (Auto) 0.3, Neut # (Auto) 5.7, Lymph # (Auto) 4.0, [place] # (Auto) 0.7, Eos # (Auto) 0.1, Baso # (Auto) 0.0, Sodium 140, Potassium 3.5, Chloride 103, Carbon Dioxide 27, Anion Gap 13.5, BUN 13, Creatinine 1.20 H, Estimated Creat Clear 40, Estimated GFR 46 L, Est GFR ( Amer) 55 L, Glucose 96, Calcium 9.2, Total Bilirubin 0.4, AST 43 H, ALT 23, Alkaline Phosphatase 64, Troponin I < 0.01, Total Protein 8.9 H D, Albumin 4.7, Globulin 4.2 H, Albumin/Globulin Ratio 1.1, Lipase 81 03/28/24 17:53: Urine Color Yellow, Urine Appearance Sl cloudy, Urine pH 6.0, Ur Specific [place] 1.025, Urine Protein Trace, Urine Glucose (UA) Negative, Urine Ketones Trace, Urine Blood Negative, Urine Nitrate Negative, Urine Bilirubin 1+ A, Urine Urobilinogen 1.0, Ur Leukocyte Esterase Trace, Urine RBC Occasional, Urine WBC 10-20, Ur Squamous Epith Cells 5-10, Urine Bacteria 3+ Orders (Tests/Meds): ED MEDICATIONS Discontinued Medications Generic Name Dose Route Start Last Admin Trade Name Oscar PRN Reason Stop Dose Admin Lactated Ringer's 500 mls @ 999 mls/hr 03/28/24 19:04 03/28/24 19:22 Lactated Ringer's 1000 Ml Bag IV 03/28/24 19:34 999 mls/hr .Q31M ONE Administration Ondansetron HCl 4 mg 03/28/24 16:44 03/28/24 16:55 Ondansetron 4mg/2ml Vial IV 03/28/24 16:45 4 mg ONCE ONE Administration Ondansetron HCl 4 mg 03/28/24 19:04 03/28/24 19:22 Ondansetron 4mg/2ml Vial IV 03/28/24 19:05 4 mg ONCE ONE Administration ORDERS Category Date Time Status CXR --portable [XR chest portable] Stat Exams 03/28/24 16:43 Completed CBC w/Auto Diff [Complete Blood Count Auto Diff] Stat Lab 03/28/24 16:42 Completed CMP [Comprehensive Metabolic Panel] Stat Lab 03/28/24 16:42 Completed Lipase Stat Lab 03/28/24 16:42 Completed Rapid PCR Covid and Flu A/B Stat Lab 03/28/24 15:36 Completed Trop I [Troponin I] Stat Lab 03/28/24 16:42 Completed Urinalysis and Microscopic Stat Lab 03/28/24 17:53 Completed Urine Culture Stat Micro 03/28/24 17:53 Received Medical Decision Narrative: In summary, patient is a 63-year-old female who presents to the ED with complaints of nausea, vomiting and diarrhea x 4 days. Patient states she is unable to eat or drink today due to symptoms. She adds that she had 1 episode of chest pain earlier that lasted approximately 1 hour, describes it as a chest pressure. Chest pressure resolved on its own. She has not been around anyone sick that she is aware of. She has not been on any recent antibiotics. Patient denies any abdominal pain. She has not taken anything prior to arrival. Patient denies fever, chills, body aches, headache, visual disturbances, shortness of breath, abdominal pain, dysuria. Differential diagnosis includes ACS, dissection, pulmonary embolism, pneumonia, pneumothorax, gastroenteritis, viral illness, among others Initial inventions include Zofran. Will obtain hematologic labs and chest x-ray. Initial workup reviewed by me. CBC unremarkable for any leukocytosis, stable H&H. CMP remarkable for creatinine of 1.20, BUN 13. GFR 46. Upon repeat evaluation, patient states her condition has improved. She was able to keep down a bottle of water while in the ED. I discussed with patient that I will send Zofran to the pharmacy. Advised her she will need to follow-up with her PCP within 7 days. We discussed return precautions to the ED and patient verbalized understanding. She was hemodynamically stable and ambulatory without difficulty from the ED. I was consulted by the KIM, and we discussed the complexity of the problems being addressed. I approved the treatment and management plan for this patient's care in the Emergency Department, thus performing a substantive portion of the medical decision making. Ryley Kaplan MD Critical Care <Aga Polo, WHOLESALER - Last Filed: 03/28/24 21:27> Critical Care Time Critical Care Time: No
[2024-03-28 17:59] LABS: Microscopic, Urine URINE MICROSCOPIC (MICROSCOPIC)
[2024-03-28 18:18] LABS: Appearance,Urine SL CLOUDY (Clear); Blood, Urine Negative (Negative); Color,Urine YELLOW (Yellow); Glucose,Urine (UA) Negative (Negative); Ketones,Urine TRACE (Negative); Leukocyte Esterase,Urine TRACE (Negative); Nitrate,Urine Negative (Negative); Protein,Urine TRACE (Negative); Specific Gravity, Urine 1.025 (1.005-1.030)
[2024-03-28 18:51] LABS: Bilirubin,Urine 1+ (Negative)
[2024-03-28 19:06] LABS: Bacteria,Urine 3+ /lpf; RBC,Urine Occasional #/hpf (0-3)
[2024-03-28] MEDS: LACTATED RINGERS 1000ML 500 ML 999 ML IV (19:22)
--- NOTE | 2024-03-28 19:40 | PC.NURSE ---
Rounding complete; no needs at this time
--- NOTE | 2024-03-28 20:00 | PC.NURSE ---
Rounding done. No needs at this time.
[2024-03-28 20:17] VITALS: BP 124/72; PULSE 74; RESP 16; TEMP 36.6; O2SAT 98
--- NOTE | 2024-03-28 20:19 | PC.NURSE ---
IV removed. Catheter tip intact. Bleeding controlled.
--- NOTE | 2024-03-28 20:29 | PC.NURSE ---
Getting dressed and waiting for a ride
== END 2024-03-28 20:30 | disposition home or self-care (01) ==
PROVIDERS: Nurse Practitioner; Emergency Provider Emergency Medicine; PCP Family Medicine
DX: R19.7 Diarrhea, unspecified (principal); R11.2 Nausea with vomiting, unspecified; R53.83 Other fatigue; R68.83 Chills (without fever); R63.8 Other symptoms and signs concerning food and fluid intake; F17.210 Nicotine dependence, cigarettes, uncomplicated
CPT/HCPCS: 71045; 80053; 81001; 83690; 84484; 85025; 87086; 87636; 93005; 96361; 96374; 96375; 99284; J2405; J7120

== ENCOUNTER 2024-04-25 14:18 | Outpatient (CLI) | payer MEDICARE, SELFPAY ==
--- NOTE | 2024-04-25 14:18 | CT_ITS ---
FINAL REPORT TECHNIQUE: Axial images were obtained through the chest without contrast. High resolution technique was utilized with supine inspiration and expiration and prone inspiration sequences. This study was performed with techniques to keep radiation doses as low as reasonably achievable, (ALARA). Individualized dose reduction techniques using automated exposure control or adjustment of mA and/or kV according to the patient's size were employed. CLINICAL HISTORY: high resolution chest x3 supine inspiration, supine expiration, prone inspiration soa and nodule COMPARISON: 06/23/2023 FINDINGS: There is no mediastinal mass or adenopathy. There is moderate coronary artery calcification. There is a significant thoracolumbar scoliosis convex to the right measuring 70 degrees. Mild to moderate changes of centrilobular emphysema is identified. There is scarring in the lung bases. There is no significant air trapping. There is fibrosis at the bases. Paraseptal emphysema is seen in the lung bases bilaterally, stable from previous. IMPRESSION: Stable bibasilar pulmonary fibrosis and paraseptal emphysema in the lung bases. Reviewed, Interpreted and Dictated by Pietro Banks MD Transcribed by Ro Marcano Authenticated and . [facility]
[2024-04-25] MEDS: ALBUTEROL 0.083% 2.5 MG/3 ML NEB IH (15:30)
--- NOTE | 2024-04-25 15:30 | PC.NURSE ---
PFT and 6 Minute walk test completed without incident. Albuterol 0.083% given via HHN, per written protocol, Pt tolerated tx well.
== END 2024-04-25 23:59 | disposition home or self-care (01) ==
LOC: RAD 14:18
PROVIDERS: PCP Family Medicine; Visit Provider Internal Medicine Pulmonary Disease
DX: R06.09 Other forms of dyspnea (principal); J84.9 Interstitial pulmonary disease, unspecified
CPT/HCPCS: 71250; 94060; 94618; 94726; 94729; J7613

== ENCOUNTER 2024-05-27 18:13 | Emergency (ER) | payer MEDICARE, SELFPAY ==
[2024-05-27] VITALS (9 sets, daily range): BP systolic 114–136; BP diastolic 64–97; PULSE 78–104; RESP 13–19; TEMP 36.6; O2SAT 95–98; BMI 26.2
--- NOTE | 2024-05-27 18:17 | ED_ITS ---
<Statement entered by Hollis Wu MD - 05/27/24 22:51> I was consulted by the KIM, and we discussed the complexity of the problems being addressed. I approved the treatment and management plan for this patient's care in the emergency department, thus performing a substantive portion of the medical decision making. Hollis Wu MD, [place]HAM, FACEP Discharge Plan Disposition Patient Disposition: Home, Self-Care Condition: Good Prescriptions Prescriptions: New doxycycline hyclate 100 mg capsule 100 mg PO BID 10 Days Qty: 20 0RF No Action Nurtec ODT 75 mg tablet,disintegrating 75 mg PO ONCE Xarelto 2.5 mg tablet 2.5 mg PO DAILY furosemide 20 mg tablet 20 mg PO DAILY clopidogrel 75 mg tablet 75 mg PO DAILY mirtazapine 15 mg tablet 15 mg PO Anoro Ellipta 62.5-25 mcg/actuation blister with device 1 inh inhalation DAILY 30 Days Qty: 180 2RF nicotine (polacrilex) 2 mg gum 2 mg buccal Q2H PRN (Reason: nicotine cravings) Qty: 100 2RF hydroxychloroquine 200 MG tablet 200 mg PO DAILY escitalopram oxalate 20 MG tablet 20 mg PO DAILY Humira Pen 40 MG/0.8 ML pen injector kit 40 mg SQ WEEKLY Rx Instructions: PATIENT TAKES ON MONDAYS ondansetron 4 mg tablet,disintegrating 4 mg PO DAILY 5 Days Qty: 5 0RF omeprazole 40 mg capsule,delayed release(DR/EC) 40 mg PO DAILY gabapentin 800 mg tablet 800 mg PO BID albuterol sulfate 2.5 MG/NEB solution for nebulization 2.5 mg inhalation TIDP PRN (Reason: Wheezing) duloxetine 60 mg capsule,delayed release(DR/EC) 60 mg PO BID cyanocobalamin (vitamin B-12) 1,000 mcg/mL solution 1,000 mcg IM MONTHLY Vraylar 1.5 mg capsule 1.5 mg PO DAILY Trelegy Ellipta 100-62.5-25 mcg Blister With Device 1 inh inhalation DAILY 30 Days Qty: 60 0RF albuterol sulfate 90 mcg/actuation HFA aerosol inhaler 4 inh inhalation Q4H PRN (Reason: shortness of breath or wheezing) Qty: 8.5 0RF Rx Instructions: 4 puffs every 4 hours for 48 hours then as needed for shortness of breath or wheezing following Referrals Follow up/Referrals: Provider,Referral, [Primary Care Provider] - See instructions Activity Restrictions/Add. Instructions Additional Instructions/Restrictions: As we discussed please call your [employer] to have them come service your nebulizer machine. Please take your steroids to help. Please Follow-Up with Your PCP within 48 Hours If You Have Continued New or Worsening Signs or Symptoms or Return to the ER As Needed. Clinical Impressions Clinical Impression: Acute exacerbation of chronic obstructive pulmonary disease Print Language Print Language: Upper Sorbian Discharge ED Provider: Hollis Wu General Adult HPI General Chief complaint: Shortness of Breath/Dyspnea Stated complaint: SOA Time Seen by Provider: 05/27/24 18:16 History of Present Illness HPI narrative: Patient presents for evaluation of dyspnea. Patient has a past medical history of COPD and is a current smoker however she is not normally on home oxygen. Patient does have a home nebulizer machine however she reports that it is not working correctly so she was unable to nebulize. She gives a history of 2 days of increasing wheezing and shortness of breath. She denies fever chills chest pain hemoptysis hematochezia melena nausea vomiting diarrhea. Related Data Home Medications ?Medication ?Instructions ?Recorded ?Confirmed adalimumab 40 mg/0.8 mL 40 mg SQ WEEKLY 07/16/21 05/07/24 subcutaneous pen kit (Humira Pen) escitalopram oxalate 20 mg tablet 20 mg PO DAILY 07/16/21 05/07/24 hydroxychloroquine 200 mg tablet 200 mg PO DAILY 07/16/21 05/07/24 albuterol sulfate 2.5 mg/3 mL 2.5 mg inhalation TIDP PRN Wheezing 06/24/23 05/07/24 (0.083 %) solution for nebulization duloxetine 60 mg capsule,delayed 60 mg PO BID 06/24/23 05/07/24 release gabapentin 800 mg tablet 800 mg PO BID 06/24/23 05/07/24 omeprazole 40 mg capsule,delayed 40 mg PO DAILY 06/24/23 05/07/24 release cyanocobalamin (vitamin B-12) 1,000 mcg IM MONTHLY 11/23/23 05/07/24 1,000 mcg/mL injection solution cariprazine 1.5 mg capsule 1.5 mg PO DAILY 02/15/24 05/07/24 (Vraylar) rimegepant 75 mg disintegrating 75 mg PO ONCE 02/29/24 05/07/24 tablet (Nurtec ODT) clopidogrel 75 mg tablet 75 mg PO DAILY 05/07/24 05/07/24 furosemide 20 mg tablet 20 mg PO DAILY 05/07/24 05/07/24 mirtazapine 15 mg tablet 15 mg PO 05/07/24 05/07/24 rivaroxaban 2.5 mg tablet (Xarelto) 2.5 mg PO DAILY 05/07/24 05/07/24 Previous Rx's ?Medication ?Instructions ?Recorded fluticasone fur. 100 mcg-umeclid 1 inh inhalation DAILY 30 days #60 02/15/24 62.5 mcg-vilant 25 mcg ea inhalat.powder (Trelegy Ellipta) albuterol sulfate 90 mcg/actuation 4 inh inhalation Q4H PRN shortness 02/22/24 aerosol inhaler of breath or wheezing #8.5 grams ondansetron 4 mg disintegrating 4 mg PO DAILY 5 days #5 tabs 03/28/24 tablet nicotine (polacrilex) 2 mg gum 2 mg buccal Q2H PRN nicotine 05/13/24 cravings #100 ea umeclidinium 62.5 mcg-vilanterol 1 inh inhalation DAILY 30 days 05/13/24 25 mcg/actuation powdr for #180 ea inhalation (Anoro Ellipta) doxycycline hyclate 100 mg capsule 100 mg PO BID 10 days #20 caps 05/27/24 Allergies Allergy/AdvReac Type Severity Reaction Status Date / Time No Known Allergies Allergy Verified 05/07/24 13:05 [facility] Disclaimer: The information contained in this section may have been updated after the patient was seen, as this information can be updated by other users. Medical History Influenza A Acute exacerbation of chronic obstructive pulmonary disease Acute viral syndrome Shortness of breath COPD with respiratory distress, acute Osteopenia Scoliosis Hypokalemia Abdominal pain Ventral incisional hernia without obstruction or gangrene Acute pain of left knee Abdominal pain JAMISON (acute kidney injury) Tobacco dependence in remission Nausea & vomiting Acute colitis Hypokalemia Urinary tract infection Acute exacerbation of chronic obstructive pulmonary disease (COPD) Low back pain Bilateral knee pain Right shoulder pain Acute exacerbation of chronic obstructive pulmonary disease Fibrosis of lung Smoking greater than 30 pack years Pulmonary emphysema ILD (interstitial lung disease) HSV-1 infection Urinary tract infection Pneumonia Urinary incontinence Osteoarthritis Rheumatoid arthritis History of back pain Surgical History History of hip replacement History of colonoscopy History of left hip replacement Family History Other Family history of COPD (chronic obstructive pulmonary disease) Family history of arthritis Family history of cancer Family history of diabetes mellitus type I Family history of hypertension Social History Smoking Status: Current every day smoker tobacco type: cigarettes packs per day: 1 alcohol intake: former substance use type: denies use current occupational status: unemployed Travel in the last 8 weeks: None household members: spouse and children housing: apartment caffeine: Yes Have you lived/traveled outside [place] in past 30 days?: No Contact w/someone who lives/traveled outside [place] past 30 days?: No Exposure to someone with infectious disease in past 14 days?: No Do you have a fever (greater than 100.4 F or 38 C)?: No Have you tested positive for COVID-19: No Exposed to someone with COVID-19 in past 14 days?: No Do you have a sore throat?: No Do you have a cough?: No Do you have any weakness?: No Do you have any diarrhea?: No Are you experiencing any unusual bleeding?: No Do you have any muscle aches/pain?: No Do you have any abdominal pain?: No Are you experiencing loss of taste or smell?: No Other Medical History Have you received the Flu Vaccine for this season: No Have you received the Pneumonia Vaccine: Yes ROS Obtained: Yes Systems reviewed as appropriate & no additional complaints except as documented Physical Exam General General appearance: alert Respiratory Respiratory exam: Present wheezes Cardiovascular Cardiovascular exam: Present tachycardia Neurological Exam Neurological exam: Present alert, oriented X3 and CN II-XII intact Medical Decision Making Medical Records Medical records reviewed: Yes I reviewed the patient's medical records. Screening: Per USPSTF and CDC recommendations, given the prevalence of disease in our region, it is our hospital?s policy to screen for HIV and viral Hepatitis for all patients aged 18 and over and those with ongoing risk factors. Tin Inquiry Pt receiving controlled substance: No Vital Signs: 05/27/24 18:28 05/27/24 18:45 05/27/24 19:01 Temperature 97.9 F Temperature Source Oral Pulse Rate Pulse Rate [Left Radial] 101 H Respiratory Rate 19 Blood Pressure 123/89 126/74 Blood Pressure [Right Arm] 136/97 H Blood Pressure Mean 100 91 Blood Pressure Mean [Right Arm] 110 Blood Pressure Source Blood Pressure Position 02 Sat by Pulse Oximetry 96 Oxygen Delivery Method Room Air 05/27/24 19:15 05/27/24 19:30 05/27/24 19:45 Temperature Temperature Source Pulse Rate 104 H 102 H Pulse Rate [Left Radial] Respiratory Rate 14 14 Blood Pressure 134/79 121/71 116/69 Blood Pressure [Right Arm] Blood Pressure Mean 91 Blood Pressure Mean [Right Arm] Blood Pressure Source Blood Pressure Position 02 Sat by Pulse Oximetry 96 95 Oxygen Delivery Method 05/27/24 20:00 05/27/24 20:15 05/27/24 20:16 Temperature 97.9 F Temperature Source Oral Pulse Rate 103 H 103 H 78 Pulse Rate [Left Radial] Respiratory Rate 14 13 16 Blood Pressure 114/72 121/64 127/64 Blood Pressure [Right Arm] Blood Pressure Mean Blood Pressure Mean [Right Arm] Blood Pressure Source Automatic Cuff Blood Pressure Position Supine 02 Sat by Pulse Oximetry 95 96 Oxygen Delivery Method Room Air Lab Data Lab results reviewed: Yes I reviewed the patient's lab results. Lab Results 05/27/24 18:00: WBC 7.6, RBC 4.56, Hgb 12.8, Hct 40.7, MCV 89.3, MCH 28.1, MCHC 31.4 L, RDW 19.4 H, Plt Count 259, MPV 12.2 H, Neut % (Auto) 50.0, Lymph % (Auto) 42.9, Luna % (Auto) 5.8, Eos % (Auto) 1.1, Baso % (Auto) 0.1, Neut # (Auto) 3.8, Lymph # (Auto) 3.3, Luna # (Auto) 0.4, Eos # (Auto) 0.1, Baso # (Auto) 0.0, PT 10.3, INR 0.91, Sodium 138, Potassium 4.3, Chloride 104, Carbon Dioxide 24, Anion Gap 14.3, BUN 9, Creatinine 1.00, Estimated Creat Clear 49, E stimated GFR 56 L, Est GFR ( Amer) 68, Glucose 87, Calcium 9.0, Magnesium 2.0, Total Bilirubin 0.6, AST 42 H, ALT 25, Alkaline Phosphatase 86, Troponin I < 0.01, NT-Pro-B Natriuret Pep 2210 H, Total Protein 7.0, Albumin 3.9, Globulin 3.1, Albumin/Globulin Ratio 1.3, Procalcitonin 0.051 05/27/24 18:23: VBG pH 7.39, VBG pCO2 37.9, VBG pO2 125.6 H, VBG HCO3 22.5 L, VBG Total CO2 23.7, VBG O2 Saturation 98.3 H, VBG Base Excess -2.4, VBG Lactic Acid 2.1 H 05/27/24 18:52: HCV Ab SAKSHI w/Rflx PCR Qn Negative, HIV Ag/Ab Combo Qual Negative 05/27/24 19:25: Urine Color Yellow, Urine Appearance Clear, Urine pH 6.0, Ur Specific [place] >= 1.030, Urine Protein 1+ A, Urine Glucose (UA) Negative, Urine Ketones 1+, Urine Blood Negative, Urine Nitrate Negative, Urine Bilirubin Negative, Urine Urobilinogen 1.0, Ur Leukocyte Esterase Negative 05/27/24 18:00 05/27/24 18:00 Orders (Tests/Meds): ED MEDICATIONS Discontinued Medications Generic Name Dose Route Start Last Admin Trade Name Freq PRN Reason Stop Dose Admin Albuterol/Ipratropium 9 ml 05/27/24 18:20 05/27/24 18:40 Ipratropium/Albuterol 3 Ml Neb IH 05/27/24 18:21 9 ml ONCE ONE Administration Dexamethasone Sodium Phosphate 10 mg 05/27/24 18:20 05/27/24 18:37 Dexamethasone 4mg/Ml 5ml Mdv IV 05/27/24 18:21 10 mg ONCE ONE Administration ORDERS Category Date Time Status Chest XR 2 view (NOT portable) [XR chest 2V] Stat Exams 05/27/24 18:20 Completed BNP [NT Pro Brain Natriuretic Pep.] Stat Lab 05/27/24 18:00 Completed CBC w/Auto Diff [Complete Blood Count Auto Diff] Stat Lab 05/27/24 18:00 Completed CMP [Comprehensive Metabolic Panel] Stat Lab 05/27/24 18:00 Completed Full Resp Panel w/COVID ([facility]) Routine Lab 05/27/24 18:24 Received HIV Combo Stat Lab 05/27/24 18:52 Completed Hepatitis C Ab Qual. W/ RFX Stat Lab 05/27/24 18:52 Completed INR [Prothrombin Time INR] Stat Lab 05/27/24 18:00 Completed Magnesium Stat Lab 05/27/24 18:00 Completed Procalcitonin Stat Lab 05/27/24 18:00 Completed Trop I [Troponin I] Stat Lab 05/27/24 18:00 Completed UA [Urinalysis and Microscopic] Stat Lab 05/27/24 19:25 Results VBG [Venous Blood Gas] Stat RT 05/27/24 18:23 Completed Medical Decision Narrative: In summary patient is a 63-year-old female who presents to the emergency department for evaluation of dyspnea. Patient is normotensive at 136/97 slightly tachycardic at 101 with sinus tachycardia the bedside monitor breathing 19 times a minute satting at 96% on room air upon arrival, afebrile at 97.9.. Sickle exam is remarkable for end-expiratory wheezes in all 4 wesley however the right feels worse than the left, there is no accessory muscle use or increased work of breathing currently. Heart sounds are S1-S2 rapid but regular rate and rhythm without murmurs gallops rubs or thrills or dependent edema noted.. Differential diagnosis includes COPD exacerbation versus lower respiratory tract infection versus pneumonia etc. Initial workup will be conducted with hematologic labs plain film chest x-ray twelve-lead EKG.. Initial interventions include DuoNeb Decadron Toradol Tylenol. Initial workup reviewed by me shows her hematologic labs are nonactionable with normal white count with no neutrophilic shift VBG with a pH of 7.39 VBG lactic acid 2.1 NT proBNP of 2210 urinalysis is bland full respiratory panel is pending. Upon repeat evaluation patient had complete resolution of her wheezing and her dyspnea.. Given this patient is appropriate for discharge. A prescription for prednisone and doxycycline sent to her pharmacy. Patient will check the portal for her full respiratory panel. Patient to follow-up closely with her PCP for no improvement or worsening signs or symptoms or return to the ER as needed. Patient will contact her [employer] to service her nebulizer machine. Critical Care Critical Care Time Critical Care Time: Yes Attestation: On 05/27/24, the high probability of a clinically significant, sudden or life threatening deterioration of the following system(s) required my full and direct attention, intervention and personal management. The time I documented below is in addition to time spent performing reported procedures but includes the following listed in this critical care notation. Total Time Total Critical Care Time: 35
--- NOTE | 2024-05-27 18:20 | XR_ITS ---
PROCEDURE INFORMATION: Exam: XR Chest Exam date and time: 05/27/2024 6:17 PM Age: 63 years old Clinical indication: Dyspnea TECHNIQUE: Imaging protocol: Radiologic exam of the chest. Views: 2 views. COMPARISON: CT HR CHEST X3 04/25/2024 2:22 PM FINDINGS: Lungs: Unremarkable. No consolidation. Pleural spaces: Unremarkable. No pleural effusion. No pneumothorax. Heart/Mediastinum: Unremarkable. No cardiomegaly. Bones/joints: Remote left rib fractures. IMPRESSION: No acute findings.
--- NOTE | 2024-05-27 18:22 | ECG_ITS ---
APPROVED REPORT Exam: Resting ECG HR:95 bpm ECG Measurements Heart Rate 95 AXES TN 139 P 62 QRSd 74 QRS 61 QT 370 T 76 QTc 423 Conclusion SINUS RHYTHM NORMAL ECG UNCONFIRMED REPORT Electronically signed by : Braulio Wu, 05/27/2024 23:01:24
[2024-05-27 18:27] LABS: Lactate Venous 2.1 mmol/L (0.4-2.0); VBG Base Excess -2.4 mmol/L (-2.4-2.3); VBG HCO3 22.5 mmol/L (23-30); VBG Oxygen Saturation 98.3 % (50-70); VBG PCO2 37.9 mmol/L (35-51); VBG PH 7.39 mmol/L (7.31-7.41); VBG PO2 125.6 mmol/L (28-40); VBG Total CO2 23.7 mmol/L (23-27)
[2024-05-27 18:29] LABS: Adenovirus,PCR Not Detected (NotDetected); Bordetella Pertussis Not Detected (NotDetected); Chlamydophila Pneumoniae, PCR Not Detected (NotDetected); Coronavirus 19, PCR Not Detected (NotDetected); Coronavirus 229E Not Detected (NotDetected); Coronavirus NL63 Not Detected (NotDetected); Coronavirus OC43 Not Detected (NotDetected); Coronovirus HKU1,PCR Not Detected (NotDetected); Human Metapneumovirus Not Detected (NotDetected); Influenza A, PCR Not Detected (NotDetected); Influenza AH1, 2009 Not Detected (NotDetected); Influenza AH1, PCR Not Detected (NotDetected); Influenza AH3,PCR Not Detected (NotDetected); Influenza B, PCR Not Detected (NotDetected); Mycoplasma Pneumoniae, PCR Not Detected (NotDetected); Parainfluenza 1, PCR Not Detected (NotDetected); Parainfluenza 2, PCR Not Detected (NotDetected); Parainfluenza 3, PCR Not Detected (NotDetected); Parainfluenza 4, PCR Not Detected (NotDetected); Respiratory Syncytial Virus Not Detected (NotDetected); Rhinovirus/Enterovirus Not Detected (NotDetected)
[2024-05-27 18:32] LABS: Basophils % 0.1 % (0.1-2.0); Eosinophils # 0.1 K/mm3 (0.0-0.4); Eosinophils % 1.1 % (0.1-12.0); Hematocrit 40.7 % (37.0-47.0); Hemoglobin 12.8 g/dL (12.2-16.2); Lymphocytes # 3.3 K/mm3 (0.7-4.5); Lymphocytes % 42.9 % (10-50); Mean Corpuscular HGB Conc 31.4 g/dL (31.8-35.4); Mean Corpuscular Hemoglobin 28.1 pg (27.0-31.2); Mean Corpuscular Volume 89.3 fl (81-99); Mean Platelet Volume 12.2 fl (7.4-10.4); Monocytes # 0.4 K/mm3 (0.1-1.0); Monocytes % 5.8 % (1.7-9.3); Neutrophils # 3.8 K/mm3 (1.8-7.8); Nucleated Red Blood Cells # 0 10^3/uL; Nucleated Red Blood Cells % 0 %; Platelet Count 259 K/mm3 (142-424); Red Blood Count 4.56 M/mm3 (4.20-5.40); Red Cell Distribution Width 19.4 % (11.5-17.5); Red Cell Distribution Width-SD 64.5 fL; White Blood Count 7.6 K/mm3 (4.8-10.8)
[2024-05-27] MEDS: DEXAMETHASONE 4MG/ML 5ML MDV 10 MG IV (18:37)
[2024-05-27] MEDS: IPRATROPIUM/ALBUTEROL 3 ML NEB 9 ML IH (18:40)
[2024-05-27 18:41] LABS: INR 0.91 (0.9-1.1); Prothrombin Time 10.3 seconds (10.1-12.5)
[2024-05-27 19:00] LABS: Alanine Aminotransferase 25 U/L (12-78); Albumin Level 3.9 g/dl (3.5-5.0); Albumin/Globulin Ratio 1.3 (1.1-1.8); Alkaline Phosphatase 86 U/L (38-126); Anion Gap 14.3 mEq/L (5-15); Aspartate Amino Transferase 42 U/L (14-36); Bilirubin,Total 0.6 mg/dl (0.2-1.3); Blood Urea Nitrogen 9 mg/dl (7-17); Carbon Dioxide 24 mmol/L (22.0-30.0); Chloride 104 mmol/L (98-107); Creatinine Clearance Estimated 49 mL/min (50-200); Estimated Glomerular Filt Rate 56 ml/min (>60); GFR (African American) 68 ML/MIN (>60); Globulin 3.1 g/dL (1.3-3.2); Glucose 87 mg/dl (74-100); Potassium 4.3 mmoL/L (3.5-5.1); Sodium 138 mmol/L (136-145)
[2024-05-27 19:12] LABS: NT Pro Brain Natriuretic Pep. 2210 pg/mL (0-125)
[2024-05-27 19:17] LABS: Procalcitonin 0.051 ng/mL (0.0-2.0)
[2024-05-27 19:27] LABS: Troponin I < 0.01 ng/ml (0.00-0.034)
[2024-05-27 19:31] LABS: Microscopic, Urine URINE MICROSCOPIC (MICROSCOPIC)
--- NOTE | 2024-05-27 20:25 | PC.NURSE ---
Patient does not have a ride home; she is calling the [employer] to attempt to get a ride
[2024-05-27 20:28] LABS: Appearance,Urine CLEAR (Clear); Blood, Urine Negative (Negative); Color,Urine YELLOW (Yellow); Glucose,Urine (UA) Negative (Negative); Ketones,Urine 1+ (Negative); Leukocyte Esterase,Urine Negative (Negative); Nitrate,Urine Negative (Negative); Protein,Urine 1+ (Negative); Specific Gravity, Urine >= 1.030 (1.005-1.030)
[2024-05-27 20:38] LABS: Bilirubin,Urine Negative (Negative)
[2024-05-27 20:57] LABS: HIV Combo NEGATIVE (Negative)
[2024-05-27 21:05] LABS: Hepatitis C Ab Qual. W/ RFX NEGATIVE (Negative)
[2024-05-27 21:33] LABS: RBC,Urine Occasional #/hpf (0-3); Squamous Epithelial Cell,Urine 20-50 #/hpf (0-5)
[2024-05-27 21:34] LABS: Bacteria,Urine 3+ /lpf
--- NOTE | 2024-05-29 10:45 | PC.NURSE ---
I discussed the pts prelim urine micro results with . She states there is no change in treatment plan at this time.
== END 2024-05-27 21:19 | disposition home or self-care (01) ==
PROVIDERS: Physician Assistant; Emergency Provider Student in an Organized Health Care Education/Training Program
DX: J44.1 Chronic obstructive pulmonary disease with (acute) exacerbation (principal); F17.210 Nicotine dependence, cigarettes, uncomplicated; Z11.59 Encounter for screening for other viral diseases; Z11.4 Encounter for screening for human immunodeficiency virus [HIV]
CPT/HCPCS: 71046; 80053; 81001; 82803; 83735; 83880; 84145; 84484; 85025; 85610; 86803; 87086; 87088; 87186; 87389; 87633; 93005; 96374; 99291; J1100

== ENCOUNTER 2024-10-04 12:04 | Inpatient (IN) | payer MEDICARE, SELFPAY ==
--- OUTSIDE RECORDS SUMMARY | 2024-08-23 08:36 | XMS_ITS | Encounter Summary ---
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, unspecified ulceration site (HCC) Claudication of lower extremity with history of revascularization Procedures [facility] LOWER EXTREMITY ARTERIAL DUPLEX COMPLETE Amaris Sommer APRN [address]AN [address] [place] [address] Phone: tel: fax: Referral ID Status Reason Start Date Expiration Date Visits Re quested Visits Authorized [id number] Closed 08/10/2023 08/09/2024 1 1 Reason for Visit * Vascular Imaging (Routine) - Closed Specialty Diagnoses / Procedures Referred By Boubacar brown Referred To Contact Radiology Diagnoses PAD (peripheral artery disease) 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 [address] June, Amaris Camacho, BAKER PASTRY [address] CHAN [address] [place] [id number] PAD (peripheral artery disease); Claudication of lower extremity with history of revascularization Discharge Disposition: Home or Self Care Social History Tobacco Use Types Packs/Day Years Used Date Smoking Tobacco: Every Day Cigarettes 1 72.6 Started: 02/13/1977 Passive Smoke Exposure: Current Smokeless Tobacco: Never Comments:Quit in the past bu t always start back. Alcohol Use Standard Drinks/Week Comments Never 0 (1 standard drink = 0.6 oz pur e alcohol) occ PHQ-2 Answer Date Recorded PHQ-2 Total Score 0 04/06/2024 Sexually Active Control Partners Comments Not Currently Post-menopausal Male Comments No Sex and Gender Information Value Date Recorded Sex Assigned at Not on file Legal Sex Female 4:52 PM EDT Gender Identity Not on file Sexual Orientation Not on file documented as of this encounter Functional Status * Is the person deaf or does he/she have serious difficulty hearing? Answer Date of Assessment Author No 04/06/2024 9:40 AM Winnie Pinto RMA * Is the person blind or does he/she have serious difficulty seeing even when wearing glasses? Answer Date of Assessment Author No 04/06/2024 9:40 AM Winnie Pinto RMA * Does this person have serious difficulty walking or climbing stairs? Answer Date of Assessment Author No 04/06/2024 9:40 AM Winnie Pinto RMA * Does this person have difficulty dressing or bathing? Answer Date of Assessment Author No 04/06/2024 9:40 AM Winnie Pinto RMA * Because of a physical, mental or emotional condition, does this person have difficulty doing errands alone such as visiting a doctor's office or shopping? Answer Date of Assessment Author No 04/06/2024 9:40 AM Winnie Pinto RMA documented as of this encounter Mental Status * Because of a physical, mental or emotional condition, does this person have serious difficulty concentrating, remembering or making decisions? Answer Entry Date Author No 04/06/2024 9:40 AM DOMO Winnie Miller RMA documented in this encounter Medications at Time of Discharge albuterol (PROVENTIL) 2.5 mg /3 mL (0.083 %) Inhl Solution for NebulizationIndic ations:Dyspnea, unspecified type Take 3 mL by nebulization every 4 hours as needed for Wheezing. 1620 mL 07/02/2024 Brompheniramine-P seudoeph-DM 2-30-10 mg/5 mL Oral Syrup Take 10 mL by mouth every 4 hours as needed. 240 mL 1 07/22/2024 clotrimazole (LOTRIMIN) 1 % Top Cream Apply topically 2 times daily. 24 g 10/23/2021 cyanocobalamin 1,000 mcg/mL Inj SolutionIndicatio ns:Vitamin B 12 deficiency Inject 1 mL into the muscle every 30 days. [place]/syringe also please 1 mL 11 10/31/2023 diclofenac (VOLTAREN) 1 % Top Gel 07/19/2023 ferrous sulfate 325 mg (65 mg iron) Oral Tablet Take 1 Tablet by mouth daily. 90 Tablet 3 12/18/2023 folic acid (FOLVITE) 1 mg Oral Tablet Take 1 mg by mouth daily. HUMIRA PEN 40 mg/0.8 mL SubQ Pen Injector KitIndications:Rh eumatoid arthritis, involving unspecified site, unspecified whether rheumatoid factor present ([facility]) 07/22/2021 hydrOXYchloroQUIN E (PLAQUENIL) 200 mg Oral TabletIndications :Rheumatoid arthritis, involving unspecified site, unspecified whether rheumatoid factor present ([facility]) 07/09/2021 lidocaine (LIDODERM) 5 % Top Adhesive Patch, Medicated Place 1 Patch onto the skin daily. 30 Patch 11 06/05/2024 methotrexate 2.5 mg Oral Tablet Take 2.5 mg by mouth once a week. Take 6 tabs PO every week mirtazapine (REMERON) 15 mg Oral TabletIndications :Rheumatoid arthritis, involving unspecified site, unspecified whether rheumatoid factor present (HCC),Unintended weight loss Take 1 Tablet by mouth nightly. 90 Tablet 3 06/05/2024 mupirocin (BACTROBAN) 2 % Top OintmentIndicatio ns:Cellulitis of leg, left Apply topically 3 times daily. 15 g 10/23/2021 nicotine (NICODERM CQ) 21 mg/24 hr TD Patch [address] 1 Patch onto the skin every 24 hours. 28 Patch 1 12/16/2023 predniSONE (DELTASONE) 20 mg Oral TabletIndications :COPD with acute exacerbation (HCC) TAKE 3 TABLETS BY MOUTH ONCE A DAY FOR 3 DAYS THEN DECREASE BY 1 TABLET EVERY 3 DAYS UNTIL GONE 18 Tablet 2 07/03/2024 Syringe with Needle, Disp, (BD LUER-SUSAN SYRINGE) 3 mL 25 x 5/8 Misc Syringe USE DIRECTED ONCE MONTHLY 1 Each 06/05/2024 terbinafine HCL (LAMISIL) 250 mg Oral TabletIndications :Tinea pedis of both feet TAKE 1 TABLET BY MOUTH ONCE A DAY 30 Tablet 1 07/24/2024 triamcinolone (KENALOG) 0.1 % Top OintmentIndicatio ns:Cracked skin APPLY TOPICALLY TO AFFECTED AREA 2 TIMES A DAY FOR 10 DAYS 80 g 10/23/2021 gabapentin (NEURONTIN) 800 mg Oral TabletIndications :Rheumatoid arthritis, involving unspecified site, unspecified whether rheumatoid factor present (HCC),Vitamin B 12 deficiency,Gastro esophageal reflux disease without esophagitis,Immun ocompromised,Athe rosclerosis of [place] artery of both lower extremities with intermittent claudication,PAD (peripheral artery disease),Stage 3b chronic kidney disease (HCC) TAKE 1 TABLET BY MOUTH EVERY EVENING, MAY TAKE ADDITIONAL 1/2 TABLET EVERY MORNING AND EVERY AFTERNOON NEEDED 60 Tablet 08/02/2024 5 documented as of this encounter Discharge Disposition Disposition Code Departure Means Destination Home or Self Care documented in this encounter Plan of Treatment Upcoming Encounters Date Type Department Care Team (Late st Contact Info) Description 10/30/2024 9:40 AM EDT Office Visit [facility] [address] [address] Tiago Franz MD [address] [place] [address] [address] [place], [place] [id number] 01/20/2025 3:15 PM EST Office Visit [facility] Nephrology Amandeep [address] [place], [place] [id number] Crystal Osborne MD [address] [facility] [address] [place] [address] 09/25/2025 10:00 AM EDT Appointment [facility] [address] [facility] [address] [place] [address] Amaris Sommer [address] [place], [place] [id number] 09/25/2025 11:00 AM EDT Office Visit [facility] [address] [facility] [address] [place] [address] JuneAmaris APRN [address] [place] [address] [address] [place], [place] [id number] documented as of this encounter Goals Goal Patient Goal Type Associated Problems Recent Progress Patient-Stated? Author Eat better, exercise, reach an ideal body weight General No Vanna Rooney RMA Stay Tobacco Free Lifestyle No Vanna Rooney RMA documented as of this encounter Procedures Procedure Name Priority Date/Time Associated Diagnosis Comments [facility] LOWER EXTREMITY ARTERIAL DUPLEX COMPLETE Routine 08/23/2024 9:57 AM EDT PAD (peripheral artery disease) Claudication of lower extremity with history of revascularization documented in this encounter Results * [facility] LOWER EXTREMITY ARTERIAL DUPLEX COMPLETE (08/23/2024 9:57 AM EDT) Anatomical Region Laterality Modality Vascular, Leg Vascular Imaging 08/23/2024 8:41 AM EDT Impressions 08/23/2024 10:36 AM EDT Conclusions * RIGHT: * RABI: 1.03 Normal (1.14 on 08/08/23). * RDBI: .92 1st lower digit pressures and waveforms within healing range. * Triphasic Doppler flow pattern is noted throughout the right lower extremity. * Arterial atherosclerosis noted throughout the right lower extremity. * Patency of the right common femoral, proximal profunda femoris, superficial femoral, popliteal, posterior tibial, peroneal and anterior tibial arteries. * LEFT: * LABI: .53 Severe claudication (.84 on 08/08/23). * LDBI: .52 1st lower digit pressures and waveforms are Below the healing range. * Triphasic Doppler flow pattern is noted in the left NETWORK SYSTEMS CONSULTANT and SFA. Monophasic doppler flow pattern in the HOUSEKEEPING WORKER and NIURKA arteries. * Arterial atherosclerosis noted throughout the left lower extremity. * Patency of the left common femoral, proximal profunda femoris, proximal to mid superficial femoral artery. Occlusion of the distal superficial femoral and popliteal arteries. Reconstitution of arterial flow seen in the proximal posterior tibial arteries secondary to collateral vessels. Collateral vessels appear to be much smaller than the previous 08/08/23 study. Intermittent flow seen in the proximal and distal anterior tibial artery. Occlusion of the left peroneal artery. Narrative Procedure Note Abdiel Dale MD - 08/23/2024 IMPRESSION Conclusions * RIGHT: * RABI: 1.03 Normal (1.14 on 08/08/23). * RDBI: .92 1st lower digit pressures and waveforms within healingrange. * Triphasic Doppler flow pattern is noted throughout the right lower extremity. * Arterial atherosclerosis noted throughout the right lower extremity. * Patency of the right common femoral, proximal profunda femoris, superficial femoral, popliteal, posterior tibial, peroneal and anteriortibial arteries. * LEFT: * LABI: .53 Severe claudication (.84 on 08/08/23). * LDBI: .52 1st lower digit pressures and waveforms are Below thehealing range. * Triphasic Doppler flow pattern is noted in the left NETWORK SYSTEMS CONSULTANT and SFA. Monophasic doppler flow pattern in the HOUSEKEEPING WORKER and NIURKA arteries. * Arterial atherosclerosis noted throughout the left lower extremity. * Patency of the left common femoral, proximal profunda femoris,proximal to mid superficial femoral artery. Occlusion of the distal superficialfemoral and popliteal arteries. Reconstitution of arterial flow seen in theproximal posterior tibial arteries secondary to collateral vessels. Collateralvessels appear to be much smaller than the previous 08/08/23 study. Intermittentflow seen in the proximal and distal anterior tibial artery. Occlusion of theleft peroneal artery. us Amaris Camacho Ros BAKER PASTRY IMG VASCULAR ORDERABLES Final R esult documented in this encounter Visit Diagnoses Diagnosis PAD (peripheral artery disease) Unspecified disorders of arteries and arterioles Claudication of lower extremity with history of revascularization documented in this encounter Care Teams Chromium Plater Relationship Specialty Start Date End Date Patsy Hair MD [address] [id number] PCP - General Family Medicine 07/19/13 Crystal Osborne MD [address] [address] Internal Medicine-Nephrology 12/06/23 documented as of this encounter
--- OUTSIDE RECORDS SUMMARY | 2024-08-23 08:36 | XMS_ITS | Encounter Summary ---
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 LOWER EXTREMITY ARTERIAL DUPLEX COMPLETE Amaris Sommer APRN [address] [facility] [address] [place] [address] Phone: tel: fax: Referral ID Status Reason Start Date Expiration Date Visits Re quested Visits Authorized [id number] Closed 08/10/2023 08/09/2024 1 1 Encounter Details Date Type Department Care Team (Latest Contact Info) Description 08/23/2024 8:36 AM EDT - 08/23/2024 11:59 PM EDT Hospital Encounter [facility] [address] [place] [address] June, Amaris Camacho, SCALP TREATMENT OPERATOR [address] [facility] [address] [place] [id number] PAD (peripheral artery disease); Claudication of [...] mL into the muscle every 30 days. [place]/syringe also please 1 mL 11 10/31/2023 diclofenac [...] unspecified site, unspecified whether rheumatoid factor present ([facility]) 07/22/2021 hydrOXYchloroQUIN E (PLAQUENIL) 200 mg Oral TabletIndications :Rheumatoid arthritis, involving unspecified site, unspecified whether rheumatoid factor present ([facility]) 07/09/2021 lidocaine (LIDODERM) 5 % Top Adhesive [...] reflux disease without esophagitis,Immun ocompromised,Athe rosclerosis of [place] artery of both lower extremities with intermittent [...] 9:40 AM EDT Office Visit [facility] [address] [address] Tiago Franz MD [address] [place] [address] [address] [place], [place] [id number] 01/20/2025 3:15 PM EST Office Visit [facility] Nephrology [address]ep [address] [place], [place] [phone] Crystal Osborne MD [address] [facility] [address] [place] [address] 09/25/2025 10:00 AM EDT Appointment [facility] 20 [facility] [address] [place] [address] Amaris Sommer [address] [place], [place] [id number] 09/25/2025 11:00 AM EDT Office Visit [facility] [address] [facility] [address] [place] [address] JuneAmaris APRN [address] [place] [address] [address] [place], [place] [phone] documented as of this encounter Goals Goal Patient Goal Type Associated Problems Recent Progress Patient-Stated? Author Eat better, exercise, reach an ideal body weight General No Vanna Rooney RMA Stay Tobacco Free Lifestyle No Vanna Rooney RMA documented as of this encounter Procedures Procedure Name Priority Date/Time Associated Diagnosis Comments [facility] LOWER EXTREMITY ARTERIAL DUPLEX COMPLETE Routine 08/23/2024 9:57 AM EDT PAD (peripheral artery disease) Claudication of lower extremity with history of revascularization documented in this encounter Results * [facility] LOWER EXTREMITY ARTERIAL DUPLEX COMPLETE (08/23/2024 9:57 [...] flow pattern is noted in the left COAL TRAM DRIVER and SFA. Monophasic doppler flow pattern in the JIG BUILDER and NIURKA arteries. * Arterial atherosclerosis noted [...] flow pattern is noted in the left COAL TRAM DRIVER and SFA. Monophasic doppler flow pattern in the JIG BUILDER and [place] arteries. * Arterial atherosclerosis noted [...] theleft peroneal artery. us Amaris Camacho Ros SCALP TREATMENT OPERATOR IMG VASCULAR ORDERABLES Final R esult documented in this encounter Visit Diagnoses Diagnosis PAD (peripheral artery disease) Unspecified disorders of arteries and arterioles Claudication of lower extremity with history of revascularization documented in this encounter Care Teams Automobile Relocation Engineer Relationship Specialty Start Date End Date Patsy Hair MD [address] [id number] PCP - General Family Medicine 07/19/13 Crystal Osborne MD [address] [address] Internal Medicine-Nephrology 12/06/23 documented as of this encounter
--- OUTSIDE RECORDS SUMMARY | 2024-08-26 09:00 | XMS_ITS | Encounter Summary ---
Author Organization [place] [address] Care Team Providers [employer] Salesperson Name Role Phone Patsy Hair MD Primary Care Provider [phone] Crystal Osborne MD Unavailable [phone] Reason for Referral * Vascular Imaging (Routine) - Pending Review Specialty Diagnoses / Procedures Referred By Boubacar brown Referred To Contact Radiology Diagnoses PAD (peripheral artery disease) Claudication of lower extremity with history of revascularization Procedures [facility] LOWER EXTREMITY ARTERIAL DUPLEX COMPLETE Amaris Sommer APRN [address] [place] [phone] Phone: tel: fax: Referral ID Status Reason Start Date Expiration Date V isits Requested Visits Authorized [id number] Pending Review 08/26/2024 08/26/2025 1 1 Reason for Visit * Reason Comments Follow-up Encounter Details Date Type Department Care Team (Late st Contact Info) Description 08/26/2024 9:00 AM EDT Office Visit SEP Vascular Surg Edg [address] [facility] [address] [place] [phone] Amaris Sommer APRN [address] [place] [phone] PAD (peripheral artery disease) (Primary Dx); Claudication of lower extremity with history of revascularization; Atherosclerosis of lummi artery of both lower extremities with intermittent claudication; Stage 3a chronic kidney disease (HCC); Varicose veins of bilateral lower extremities with other complications; Cigarette nicotine dependence with nicotine-induced disorder; Rheumatoid arthritis of both hips, unspecified whether rheumatoid factor present (HCC) Social History Tobacco Use Types Packs/Day Years [...] on file documented as of this encounter Last Filed Vital Signs Vital Sign Reading Time Taken Comments Blood Pressure 108/78 08/26/2024 9:04 AM EDT Pulse 92 08/26/2024 8:58 AM EDT Temperature 36.3 C (97.4 F) 08/26/2024 8:58 AM EDT Respiratory Rate - - Oxygen Saturation - - Inhaled Oxygen Concentration - - Weight 50.8 kg (112 lb) 08/26/2024 8:58 AM EDT Height - - Body Mass Index 25.11 06/05/2024 10:39 AM EDT documented in this encounter Functional Status * Is the [...] Entry Date Author No 04/06/2024 9:40 AM Winnie Pinto RMA documented in this encounter Patient Instructions * Attachments The following attachments cannot be sent through Care Everywhere. * Atherosclerosis (Persian) documented in this encounter Progress Notes * Amaris Sommer APRN - 08/26/2024 9:00 AM EDT Patient of Dr. Santamaria Subjective: Ms. Gonzalez is here for a scheduled routine follow-up visit History of Present Illness The patient is a 63 y.o. female: Peripheral Arterial Disease Denies pain with ambulation. Reports cramping at night. Denies open wounds. Reports history of previous vascular procedures on legs. Takes statin, Plavix, and Xarelto daily. Daily smoker 1 ppd over 40 years. Vascular Surgery History: 02/16/2022: left SFA and popliteal artery atherectomy, left TPT and peroneal artery atherectomy (Hill Santamaria MD) I have confirmed and addended the above HPI, and therefore it represents my work. Amaris Sommer APRN HPI Patients past medical, family and social histories were reviewed and updated. There are no changes except as noted. 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 Iron deficiency anemia 12/18/2023 Acute colitis 12/16/2023 Acute pain of left knee 12/16/2023 Fibrosis of lung ([facility]) 12/16/2023 ILD (interstitial lung disease) ([facility]) 12/16/2023 Nausea & vomiting 12/16/2023 Urinary tract infection 12/16/2023 Abnormal x-ray of femur 10/11/2023 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 Chronic right shoulder pain 09/22/2023 Rotator cuff arthropathy of right shoulder 09/22/2023 Traumatic tear of right rotator cuff 09/22/2023 Immunosuppressed status 08/10/2023 Osteopenia 08/10/2023 Scoliosis 08/10/2023 Ventral incisional hernia without obstruction or gangrene 08/10/2023 COPD (chronic obstructive pulmonary disease) ([facility]) 08/10/2023 Atherosclerosis of lummi artery of both lower extremities with intermittent claudication 01/11/2022 Smoking 01/11/2022 Cigarette nicotine dependence with nicotine-induced disorder 01/11/2022 Varicose veins of bilateral lower extremities with other complications 01/11/2022 PAD (peripheral artery disease) 11/18/2021 Stage 3a chronic kidney disease ([facility]) 10/28/2021 History of colon polyps 10/01/2021 Immunocompromised 01/27/2021 Vitamin B 12 deficiency 09/05/2015 Gastroesophageal reflux disease without esophagitis 09/05/2015 Urinary incontinence 02/11/2011 Hand arthritis 02/11/2011 Pain medication agreement completed 01/10/2011 Menopause IBS (irritable bowel syndrome) 12/11/2010 Diverticulitis 12/11/2010 Arthritis, rheumatoid ([facility]) Generalized anxiety disorder Past Surgical History: Procedure Laterality Date ABDOMEN SURGERY CATARACT REMOVAL 09/22/2011 LEFT EYE CATARACT EXTRACTION WITH PHACOEMULSIFICATION AND INTRAOCULAR LENS ; Surgeon: Mitesh Hammond MD; Location: [facility]; Service: Ophthalmology CATARACT REMOVAL 10/06/2011 RIGHT EYE CATARACT EXTRACTION WITH PHACOEMULSIFICATION AND INTRAOCULAR LENS ; Surgeon: Mitesh Hammond MD; Location: [facility]; Service: Ophthalmology CERVIX SURGERY dysplasia COLON SURGERY COLONOSCOPY COLOSTOMY ECTOPIC SURGERY abdominal surgery ENDOMETRIAL ABLATION EYE SURGERY Both eyes cataracts IR ABDOMINAL AORTOGRAM SERIALOGRAM 02/16/2022 IR ABDOMINAL AORTOGRAM SERIALOGRAM 02/16/2022 Hill Santamaria MD [facility] IR IR ANGIOGRAM FEMORAL ARTERIO SHIFT 02/16/2022 IR ANGIOGRAM FEMORAL ARTERIO SHIFT 02/16/2022 Hill Santamaria MD [facility] IR IR ULTRASOUND GUIDED VASCULAR ACCESS 02/16/2022 IR ULTRASOUND GUIDED VASCULAR ACCESS 02/16/2022 Hill Santamaria MD [facility] IR JOINT REPLACEMENT Left hip LEG SURGERY fracture - both legs TUBAL LIGATION VASCULAR SURGERY Family History Problem Relation Age of Onset Hypertension Father High Blood Pressure Father Cancer Father Esopagal then spread everwhere High Cholesterol Father Colon Polyps Father Esophageal Cancer Father Irritable Bowel Syndrome Father Kidney Disease Paternal Grandmother O Diabetes Paternal Grandmother Arthritis Paternal Grandmother Diabetes Hearing Loss Paternal Grandmother Had to wear hearing aids. Hearing Loss Mother Sudden hearing loss Diabetes Brother Insulin no longer needed Anesth Problems Neg Hx Social History Tobacco Use Smoking status: Every Day Current packs/day: 1.00 Average packs/day: 1 pack/day for 72.5 years (72.5 ttl pk-yrs) Types: Cigarettes Start date: 02/13/1977 Passive exposure: Current Smokeless tobacco: Never Tobacco comments: Quit in the past but always start back. Substance Use Topics Alcohol use: Never Comment: occ Current Outpatient Medications Medication Instructions albuterol (PROVENTIL HFA;VENTOLIN HFA) 90 mcg/actuation Inhl HFA Aerosol Inhaler 2 Puffs, Inhalation, EVERY 4 HOURS PRN, for wheezing albuterol (PROVENTIL) 2.5 mg, Nebulization, EVERY 4 HOURS PRN alendronate (FOSAMAX) 70 mg, Oral, WEEKLY FOSAMAX ANORO ELLIPTA 62.5-25 mcg/actuation Inhl Disk with Device 1 Puff, DAILY atorvastatin (LIPITOR) 40 mg, Oral, DAILY Iabbwrhpvbqmfrj-Cmgtcojoa-PA 2-30-10 mg/5 mL Oral Syrup 10 mL, Oral, EVERY 4 HOURS PRN jzrkdhtfbx-cnslfjfp-ibwvdtkrag (BREZTRI AEROSPHERE) 160-9-4.8 mcg/actuation Inhl HFA Aerosol Inhaler 2 Puffs, Inhalation, 2 TIMES DAILY cariprazine (VRAYLAR) 1.5 mg, Oral, DAILY clopidogreL (PLAVIX) 75 mg, Oral, DAILY clotrimazole (LOTRIMIN) 1 % Top Cream Topical, 2 TIMES DAILY cyanocobalamin 1,000 mcg, Intramuscular, EVERY 30 DAYS, [place]/syringe also please cyclobenzaprine (FLEXERIL) 10 mg, Oral, EVERY 8 HOURS PRN diclofenac (VOLTAREN) 1 % Top Gel doxepin (SINEQUAN) 10 mg, Oral, NIGHTLY DULoxetine (CYMBALTA) 120 mg, Oral, DAILY escitalopram oxalate (LEXAPRO) 20 mg, Oral, DAILY famotidine (PEPCID) 40 mg, Oral, EVERY EVENING ferrous sulfate 325 mg, Oral, DAILY folic acid (FOLVITE) 1 mg, DAILY fUROsemide (LASIX) 20 mg Oral Tablet TAKE 1 TABLET BY MOUTH ONCE A DAY NEEDED FOR SWELLING gabapentin (NEURONTIN) 800 mg Oral Tablet TAKE 1 TABLET BY MOUTH EVERY EVENING, MAY TAKE ADDITIONAL1/2 TABLET EVERY MORNING AND EVERY AFTERNOON NEEDED HUMIRA PEN 40 mg/0.8 mL SubQ Pen Injector Kit No dose, route, or frequency recorded. hydrOXYchloroQUINE (PLAQUENIL) 200 mg Oral Tablet No dose, route, or frequency recorded. lidocaine (LIDODERM) 5 % Top Adhesive Patch, Medicated 1 Patch, Transdermal, DAILY methotrexate 2.5 mg, WEEKLY mirtazapine (REMERON) 15 mg, Oral, NIGHTLY mupirocin (BACTROBAN) 2 % Top Ointment Topical, 3 TIMES DAILY nicotine (NICODERM CQ) 21 mg/24 hr TD Patch 24 hr 1 Patch, Transdermal, *EVERY 24 HOURS omeprazole (PRILOSEC) 40 mg Oral Capsule, Delayed Release(E.C.) TAKE 1 CAPSULE BY MOUTH ONCE A DAY potassium chloride (KLOR-CON M) 20 mEq Oral Tab Sust.Rel. Particle/Crystal 20 mEq, Oral, DAILY predniSONE (DELTASONE) 20 mg Oral Tablet TAKE 3 TABLETS BY MOUTH ONCE A DAY FOR 3 DAYS THEN DECREASE BY 1 TABLET EVERY 3 DAYS UNTIL GONE rimegepant (NURTEC ODT) 75 mg Oral Tablet, Rapid Dissolve DISSOLVE 1 TABLET ON THE TONGUE EVERY 48 HOURS ONLY NEEDED FOR MIGRAINE Syringe with Needle, Disp, (BD LUER-SUSAN SYRINGE) 3 mL 25 x 5/8 Misc Syringe USE DIRECTED ONCE MONTHLY terbinafine HCL (LAMISIL) 250 mg, Oral, DAILY triamcinolone (KENALOG) 0.1 % Top Ointment APPLY TOPICALLY TO AFFECTED AREA 2 TIMES A DAY FOR 10 DAYS Xarelto 2.5 mg, Oral, 2 TIMES DAILY No Known Allergies Review of Systems Constitutional: Negative for appetite change, chills, fatigue and fever. Respiratory: Negative for chest tightness and shortness of breath. Cardiovascular: Negative for chest pain and leg swelling. Musculoskeletal: Negative for gait problem and joint swelling. Skin: Negative for color change and wound. All other systems reviewed and are negative. Objective: Vitals: 08/26/24 0858 08/26/24 0904 BP: 110/78 108/78 BP Location: Right arm Left arm Patient Position: Sitting Sitting Pulse: 92 Temp: 97.4 ??F (36.3 ??C) TempSrc: Forehead Weight: 112 lb (50.8 kg) Body mass index is 25.11 kg/m??. Physical Exam Vitals reviewed. Constitutional: Appearance: Normal appearance. She is well-developed. HENT: Head: Normocephalic and atraumatic. Eyes: General: No scleral icterus. Conjunctiva/sclera: Conjunctivae normal. Neck: Vascular: No JVD. Cardiovascular: Rate and Rhythm: Normal rate and regular rhythm. Pulses: Radial pulses are 2+ on the right side and 2+ on the left side. Femoral pulses are 2+ on the right side and 2+ on the left side. Dorsalis pedis pulses are 2+ on the right side and 0 on the left side. Posterior tibial pulses are 2+ on the right side and 0 on the left side. Heart sounds: Normal heart sounds, S1 normal and S2 normal. No murmur heard. Comments: Spider and reticular veins bilateral lower extremities with healed ulceration Trace BLE edema Left foot warm and pink, motor and sensation intact Pulmonary: Effort: Pulmonary effort is normal. Breath sounds: Normal breath sounds. No wheezing, rhonchi or rales. Abdominal: General: There is no abdominal bruit. Palpations: There is no pulsatile mass. Musculoskeletal: General: Normal range of motion. Cervical back: Normal range of motion. Right lower leg: Edema present. Left lower leg: Edema present. Skin: General: Skin is warm and dry. Neurological: Mental Status: She is alert and oriented to person, place, and time. Psychiatric: Attention and Perception: Attention and perception normal. Mood and Affect: Mood and affect normal. Speech: Speech normal. Behavior: Behavior normal. Behavior is cooperative. Thought Content: Thought content normal. Imaging: Peripheral Arterial Disease Imaging [facility] LOWER EXTREMITY ARTERIAL DUPLEX COMPLETE Result Date: 08/23/2024 Conclusions * RIGHT: * RABI: 1.03 Normal [...] LABI: .53 Severe claudication (.84 on 08/08/23). *LDBI: .52 1st lower digit pressures and waveforms are Below the healing range. * Triphasic Doppler flow pattern is noted in the left CYBERATHLETE and SFA. Monophasic doppler flow pattern in the CLOUD SERVICES ARCHITECT and NIURKA art eries. * Arterial atherosclerosis noted throughout the left [...] artery. Occlusion of the left peroneal artery. [facility] LOWER EXTREMITY ARTERIAL DUPLEX COMPLETE Result Date: 08/08/2023 Conclusions * RABI: 1.14 Normal RDBI: .95 Within healing range (Previous study 07/14/22 RABI: 1.2).* Occlusion of the left distal popliteal artery with a large collateral noted in the proximal popliteal artery just before the occlusion. * Patency of the right common femoral, proximal profunda femoris, superficial femoral, popliteal, posterior tibial, peroneal and anterior tibial arteries. * LABI: .84 Mild claudication LDBI: .61 Within healing range (Previous study 07/14/22 .79). * Occlusion of the left distal popliteal artery with a large collateral noted in the proximal popliteal artery justbefore the occlusion. * Patency of the left common femoral, proximal profunda femoris, superficial f emoral, proximal popliteal, posterior tibial and proximal and distal anterior tibial artery. Intermittent flow channel narrowing seen in the mid left anterior tibial artery. Occlusion of the left peroneal artery. * Right proximal posterior tibial artery 20-49% stenosis is new from the previous study of 07/14/22. Assessment and Plan: Janee Mendez was seen today for follow-up. Diagnoses and all orders for this visit: PAD (peripheral artery disease) - [place] US LOWER EXTREMITY ARTERIAL DUPLEX COMPLETE; Future Claudication of lower extremity with history of revascularization - [facility] LOWER EXTREMITY ARTERIAL DUPLEX COMPLETE; Future Atherosclerosis of lummi artery of both lower extremities with intermittent claudication Stage 3a chronic kidney disease (HCC) Varicose veins of bilateral lower extremities with other complications Cigarette nicotine dependence with nicotine-induced disorder Rheumatoid arthritis of both hips, unspecified whether rheumatoid factor present (HCC) Vanessa was seen today for a follow up for PAD. She denies claudication, rest pain and tissue loss. Reports intermittent cramping at night. Reports joint pain related to arthritis. Upon exam, BLE and feet are warm and pink. Motor and sensation intact. No tissue loss. Palpable right DP and PT pulse. Unable to palpate left DP or PT pulses. The PRADEEP was reviewed and shows triphasic flow throughout the RLE. There is occlusion of the left distal SFA/pop with reconstitution of flow in the proximal [employer]OUD [employer] ARCHITECT. RABO WNL. LABI 0.53, severe claudication range. Intervention is not currently indicated as she denies claudication, rest pain and is negative for tissue loss on exam. Advised to continue an exercise program, walking. Advised to call for any new symptoms including pain, numbness, discoloration or wounds that are not healing. Follow up: 1 year OV, PRADEEP prior Amaris Sommer APRN Cosigned by Sathish Greenfield MD at 08/26/2024 5:48 PM EDT Associated attestation - Sathish Greenfield MD - 08/26/2024 5:48 PM EDT I have provided supervision as needed. I provided medical management, monitoring and treatment of this patient. Sathish Greenfield MD documented in this encounter Plan of Treatment Upcoming Encounters Date Type Department Care Team (Late st Contact Info) Description 10/30/2024 9:40 AM EDT Office Visit [facility] H&V [address] [phone] Tiago Franz MD [address] [place] [address] 01/20/2025 3:15 PM EST Office Visit [facility] Nephrology Amandeep [address] [place] [address] Crystal Osborne MD [address] [place] [address] 09/25/2025 10:00 AM EDT Appointment [facility] OFC VASCULAR [address] [facility] [address] [place] [address] Amaris Sommer [address] [place] [address] 09/25/2025 11:00 AM EDT Office Visit [facility] Vascular Surg Edg [address] [facility] [address] [place] [address] Amaris Sommer [address] [place], [place] [id number] Scheduled Orders Name Type Priority Associated Diagnoses Orde r Schedule [facility] LOWER EXTREMITY ARTERIAL DUPLEX COMPLETE Imaging Cardiology Routine PAD (peripheral artery disease) Claudication of lower extremity with history of revascularization 1 Occurrences starting 08/26/2024 until 08/26/2026 documented as of this encounter Goals Goal Patient Goal Type Associated Problems Recent Progress Patient-Stated? Author Eat better, exercise, reach an ideal body weight General No Vanna Rooney RMA Stay Tobacco Free Lifestyle No Vanna Rooney RMA documented as of this encounter Visit Diagnoses Diagnosis PAD (peripheral artery disease)- Primary Unspecified disorders of arteries and arterioles Claudication of lower extremity with history of revascularization Atherosclerosis of lummi artery of both lower extremities with intermittent claudication Atherosclerosis of lummi arteries of the extremities with intermittent claudication Stage 3a chronic kidney disease (HCC) Varicose veins of bilateral lower extremities with other complications Cigarette nicotine dependence with nicotine-induced disorder Unspecified drug-induced mental disorder Rheumatoid arthritis of both hips, unspecified whether rheumatoid factor present (HCC) documented in this encounter Care Teams [employer] Salesperson Relationship Specialty Start Date End Date Patsy Hair MD [address] [place] [address] PCP - General Family Medicine 07/19/13 Crystal Osborne MD [address] [phone] Internal Medicine-Nephrology 12/06/23 documented as of this encounter
--- OUTSIDE RECORDS SUMMARY | 2024-08-26 09:00 | XMS_ITS | Encounter Summary ---
Author Organization [place] [address] Care Team Providers Care Medical Reception Specialist Name Role Phone Patsy Hair MD Primary Care Provider [phone] Crystal Osborne MD Unavailable [phone] Reason for Referral * Vascular Imaging (Routine) - Pending Review Specialty Diagnoses / Procedures Referred By Boubacar brown Referred To Contact Radiology Diagnoses PAD (peripheral artery disease) Claudication of lower extremity with history of revascularization Procedures [facility] LOWER EXTREMITY ARTERIAL DUPLEX COMPLETE Amaris Sommer APRN [address] [facility] [address] [place] [address] Phone: tel: fax: Referral ID Status Reason Start Date Expiration Date V isits Requested Visits Authorized [id number] Pending Review 08/26/2024 08/26/2025 1 1 Reason for Visit * Reason Comments Follow-up Encounter Details Date Type Department Care Team (Late st Contact Info) Description 08/26/2024 9:00 AM EDT Office Visit [facility] Vascular Surg Edg [address] [facility] [address] [place] [address] Amaris Sommer APRN [address] [facility] [facility] [facility] [address] [place] [address] PAD (peripheral artery disease) (Primary Dx); Claudication of lower extremity with history of revascularization; Atherosclerosis of [place] artery of both lower extremities with intermittent [...] be sent through Care Everywhere. * Atherosclerosis ([place]) documented in this encounter Progress Notes * [...] Colon polyp COPD (chronic obstructive pulmonary disease) ([facility]) Depression Encounter for blood transfusion GERD (gastroesophageal reflux disease) Headache(784.0) occasional Hyperlipidemia Hypoglycemia history of- not been a problem in awhile Irritable bowel syndrome Osteoarthritis Osteoporosis Patient Active Problem List Diagnosis Date Noted CYP2C9 intermediate metabolizer ([facility]) 01/19/2024 Iron deficiency anemia 12/18/2023 Acute colitis 12/16/2023 Acute pain of left knee 12/16/2023 Fibrosis of lung ([facility]) 12/16/2023 ILD (interstitial lung disease) ([facility]) 12/16/2023 Nausea & vomiting 12/16/2023 Urinary tract infection 12/16/2023 Abnormal x-ray of femur 10/11/2023 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 Chronic right shoulder pain 09/22/2023 Rotator cuff arthropathy of right shoulder 09/22/2023 Traumatic tear of right rotator cuff 09/22/2023 Immunosuppressed status 08/10/2023 Osteopenia 08/10/2023 Scoliosis 08/10/2023 Ventral incisional hernia without obstruction or gangrene 08/10/2023 COPD (chronic obstructive pulmonary disease) ([facility]) 08/10/2023 Atherosclerosis of [place] artery of both lower extremities with intermittent claudication 01/11/2022 Smoking 01/11/2022 Cigarette nicotine dependence with nicotine-induced disorder 01/11/2022 Varicose veins of bilateral lower extremities with other complications 01/11/2022 PAD (peripheral artery disease) 11/18/2021 Stage 3a chronic kidney disease ([facility]) 10/28/2021 History of colon polyps 10/01/2021 Immunocompromised 01/27/2021 Vitamin B 12 deficiency 09/05/2015 Gastroesophageal reflux disease without esophagitis 09/05/2015 Urinary incontinence 02/11/2011 Hand arthritis 02/11/2011 Pain medication agreement completed 01/10/2011 Menopause IBS (irritable bowel syndrome) 12/11/2010 Diverticulitis 12/11/2010 Arthritis, rheumatoid ([facility]) Generalized anxiety disorder Past Surgical History: Procedure Laterality Date ABDOMEN SURGERY CATARACT REMOVAL 09/22/2011 LEFT EYE CATARACT EXTRACTION WITH PHACOEMULSIFICATION AND INTRAOCULAR LENS ; Surgeon: Mitesh Hammond MD; Location: [facility]; Service: Ophthalmology CATARACT REMOVAL 10/06/2011 RIGHT EYE CATARACT EXTRACTION WITH PHACOEMULSIFICATION AND INTRAOCULAR LENS ; Surgeon: Mitesh Hammond MD; Location: [facility]; Service: Ophthalmology CERVIX SURGERY dysplasia COLON SURGERY [...] DAILY atorvastatin (LIPITOR) 40 mg, Oral, DAILY Mfhflobxotthsqz-Ubzadevsm-MC 2-30-10 mg/5 mL Oral Syrup 10 mL, Oral, EVERY 4 HOURS PRN qmflydknyg-mksicevu-jicqvikwzh (BREZTRI AEROSPHERE) 160-9-4.8 mcg/actuation Inhl HFA Aerosol Inhaler 2 Puffs, Inhalation, 2 TIMES DAILY cariprazine (VRAYLAR) 1.5 mg, Oral, DAILY clopidogreL (PLAVIX) 75 mg, Oral, DAILY clotrimazole (LOTRIMIN) 1 % Top Cream Topical, 2 TIMES DAILY cyanocobalamin 1,000 mcg, Intramuscular, EVERY 30 DAYS, [place]/syringe also please cyclobenzaprine (FLEXERIL) 10 mg, Oral, [...] flow pattern is noted in the left MILL OPERATOR and SFA. Monophasic doppler flow pattern in the CENTER MEDICAL SPECIALIST and NIURKA art eries. * Arterial atherosclerosis [...] artery. Occlusion of the left peroneal artery. [facility] LOWER EXTREMITY ARTERIAL DUPLEX COMPLETE Result [...] this visit: PAD (peripheral artery disease) - [place] LOWER EXTREMITY ARTERIAL DUPLEX COMPLETE; Future Claudication of lower extremity with history of revascularization - [facility] LOWER EXTREMITY ARTERIAL DUPLEX COMPLETE; Future Atherosclerosis of [place] artery of both lower extremities with intermittent [...] with reconstitution of flow in the proximal CENTER MEDICAL SPECIALIST. RABO WNL. LABI 0.53, severe claudication range. [...] 9:40 AM EDT Office Visit [facility] H&V [address] [address] Tiago Franz MD [address] [facility] [place] [address] 01/20/2025 3:15 PM EST Office Visit [facility] Nephrology Amandeep [address] [place] [address] Crystal Osborne MD [address] [facility] [address] [place] [address] 09/25/2025 10:00 AM EDT Appointment [facility] MED OFC VASCULAR 20 [facility] [address] [place] [address] Amaris Sommer [address] [place] [address] 09/25/2025 11:00 AM EDT Office Visit SEP Vascular Surg Edg [address] [facility] [address] [place] [address] Amaris Sommer [address] [place], [place] [id number] Scheduled Orders Name Type Priority Associated Diagnoses Orde r Schedule [facility] LOWER EXTREMITY ARTERIAL DUPLEX COMPLETE Imaging [...] extremity with history of revascularization Atherosclerosis of [place] artery of both lower extremities with intermittent claudication Atherosclerosis of [place] arteries of the extremities with intermittent claudication Stage 3a chronic kidney disease (HCC) Varicose veins of bilateral lower extremities with other complications Cigarette nicotine dependence with nicotine-induced disorder Unspecified drug-induced mental disorder Rheumatoid arthritis of both hips, unspecified whether rheumatoid factor present (HCC) documented in this encounter Care Teams Medical Reception Specialist Relationship Specialty Start Date End Date Patsy Hair MD [address] [place] [address] PCP - General Family Medicine 07/19/13 Crystal Osborne MD [address] [address] Internal Medicine-Nephrology 12/06/23 documented as of this encounter
--- OUTSIDE RECORDS SUMMARY | 2024-08-30 11:16 | XMS_ITS | Encounter Summary ---
Author Organization [place] [address] Care Team Providers Care Firmware Manager Name Role Phone Patsy Hair MD Primary Care Provider [phone] Crystal Osborne MD Unavailable [phone] Reason for Referral * MRI/CAT Scan (Routine) - Closed Specialty Diagnoses / Procedures Referred By Boubacar brown Referred To Contact Radiology Diagnoses Screening for malignant neoplasm of respiratory organ Personal history of tobacco use, presenting hazards to health Procedures CT LUNG CANCER SCREENING LOW DOSE Patsy Hair MD [address] [place] [address] Phone: tel: fax: Referral ID Status Reason Start Date Expiration Date Visits Re quested Visits Authorized [id number] Closed 09/01/2023 08/31/2024 1 1 Reason for Visit * MRI/CAT Scan (Routine) - Closed Specialty Diagnoses / Procedures Referred By Boubacar brown Referred To Contact Radiology Diagnoses Screening for malignant neoplasm of respiratory organ Personal history of tobacco use, presenting hazards to health Procedures CT LUNG CANCER SCREENING LOW DOSE Patsy Hair MD [address] [place] [address] Phone: tel: fax: Referral ID Status Reason Start Date Expiration Date Visits Re quested Visits Authorized [id number] Closed 09/01/2023 08/31/2024 1 1 Encounter Details Date Type Department Care Team (Late st Contact Info) Description 08/30/2024 11:16 AM EDT - 08/30/2024 11:59 PM EDT Hospital Encounter [facility] [address] [facility] [place], [place] [phone] Patsy Hair MD [address] [place], [place] [phone] Screening for malignant neoplasm of respiratory organ; Personal history of tobacco use, presenting hazards to health Discharge Disposition: Home or Self Care Social [...] Winnie Pinto RMA documented in this encounter Medications at [...] mL into the muscle every 30 days. [place]/syringe also please 1 mL 11 10/31/2023 diclofenac [...] unspecified site, unspecified whether rheumatoid factor present ([facility]) 07/22/2021 hydrOXYchloroQUIN E (PLAQUENIL) 200 mg Oral TabletIndications :Rheumatoid arthritis, involving unspecified site, unspecified whether rheumatoid factor present ([facility]) 07/09/2021 lidocaine (LIDODERM) 5 % Top Adhesive Patch, Medicated Place 1 Patch onto the skin daily. 30 Patch 11 06/05/2024 methotrexate 2.5 mg Oral Tablet Take 2.5 mg by mouth once a week. Take 6 tabs PO every week mirtazapine (REMERON) 15 mg Oral TabletIndications :Rheumatoid arthritis, involving unspecified site, unspecified whether rheumatoid factor present ([facility]),Unintended weight loss Take 1 Tablet by mouth [...] unspecified site, unspecified whether rheumatoid factor present ([facility]),Vitamin B 12 deficiency,Gastro esophageal reflux disease without esophagitis,Immun ocompromised,Athe rosclerosis of [place] artery of both lower extremities with intermittent [...] 9:40 AM EDT Office Visit [facility] H&V [address] [address] Tiago Franz MD [address] [place] [address] [place] [address] 01/20/2025 3:15 PM EST Office Visit [facility] Nephrology Amandeep [address] [place] [address] Crystal Osborne MD [address] [place] [address] 09/25/2025 10:00 AM EDT Appointment [facility] MED OFC VASCULAR [address] [facility] [address] [place] [address] May, Amaris Camacho [facility] [address] [facility] [facility] [address] [place], [place] [phone] 09/25/2025 11:00 AM EDT Office Visit SEP Vascular Surg Edg [address] [facility] [address] [place] [address] [address] [place], [place] [id number] documented as of this encounter Goals Goal Patient Goal Type Associated Problems Recent Progress Patient-Stated? Author Eat better, exercise, reach an ideal body weight General No Vanna Rooney RMA Stay Tobacco Free Lifestyle No Vanna Rooney RMA documented as of this encounter Procedures Procedure Name Priority Date/Time Associated Diagnosis Comments CT LUNG CANCER SCREENING LOW DOSE Routine 08/30/2024 11:35 AM EDT Screening for malignant neoplasm of respiratory organ Personal history of tobacco use, presenting hazards to health documented in this encounter Results * CT LUNG CANCER SCREENING LOW DOSE (08/30/2024 11:35 AM EDT) Anatomical Region Laterality Modality Lung Computed Tomogra phy 08/30/2024 11:3 5 AM EDT Impressions 08/30/2024 11:49 AM EDT 1. Unremarkable low-dose screening chest CT. 2. Ventral hernia upper abdomen containing colon. No definite obstruction or incarceration. RECOMMENDATION: Low Dose CT - 1 Yr A summary letter communicating these results will be mailed to the patient's address of record. - Note: Radiology results need to be interpreted within a comprehensive clinical context. If you have questions about the radiology report, please contact the office of the ordering clinician. [email or web address] Narrative 08/30/2024 11:[address] LUNG CANCER SCREENING LOW DOSE 08/30/2024 11:35 AM CLINICAL HISTORY: Asymptomatic patient meeting NCCN high risk criteria for lung screening. Z12.2-Encounter for screening for malignant neoplasm of respiratory hmcyxw-XJR-37-CM Z87.891-Personal history of nicotine lyvdaamztl-YRV-84-CM. COMPARISON: 08/30/2023 07/27/2021 PROCEDURE COMMENTS: Noncontrast, low-dose, multidetector CT chest per department protocol. Interactive 3-D postprocessing done by the reviewing physician on a [employer] workstation, using Maximum intensity projections (MIPS) and [employer] LUNG CAD for improved lesion detection. Ramos images archived to PACS. Dose 1 : CT DLP Total : 30.7 mGycm DLP Spiral Max : 30.7 mGycm Maximum CTDI Vol : 0.9 mGy SSDE : 1.278 mGy SSDE Diameter : 26.2 cm SSDE Source : [employer] FINDINGS: No suspicious pulmonary nodule. No acute inflammatory process. Heart and mediastinum unremarkable. There is a ventral hernia in the upper abdomen containing colon. No definite obstruction or incarceration. Coronary artery calcification: Moderate. FOLLOW-UP CODE: Lung-RADS Category 1: Negative: No nodule or definitely benign nodule(s). Continued ANNUAL LOW-DOSE SCREENING CT SCAN ([id number]) suggested if age <78. Lung-RADS Modifier S: Clinically Significant or Potentially Significant Findings (Non Lung Cancer) Procedure Note Jose Calix MD - 08/30/2024 CT LUNG CANCER SCREENING LOW DOSE 08/30/2024 11:35 AM CLINICAL HISTORY: Asymptomatic patient meeting NCCN high risk criteria forlung screening. Z12.2-Encounter for screening for malignant neoplasm ofrespiratory rciuzc-PHC-90-CM Z87.891-Personal history of nicotine sofsrxksrh-SES-69-CM. COMPARISON: 08/30/2023 07/27/2021 PROCEDURE COMMENTS: Noncontrast, low-dose, multidetector CT chest perdepartment protocol. Interactive 3-D postprocessing done by the reviewing physicianon a [employer] workstation, using Maximum intensity projections (MIPS) and [employer]UNG CAD for improved lesion detection. Ramos images archived to PACS. Dose 1 : CT DLP Total : 30.7 mGycm DLP Spiral Max : 30.7 mGycm Maximum CTDI Vol : 0.9 mGy SSDE : 1.278 mGy SSDE Diameter : 26.2 cm SSDE Source : [employer] FINDINGS: No suspicious pulmonary nodule. No acute inflammatory process. Heart and mediastinum unremarkable. There is a ventral hernia in theupper abdomen containing colon. No definite obstruction or incarceration. Coronary artery calcification: Moderate. FOLLOW-UP CODE: Lung-RADS Category 1: Negative: No nodule or definitelybenign nodule(s). Continued ANNUAL LOW-DOSE SCREENING [place] ([id number])suggested if age <78. Lung-RADS Modifier S: Clinically Significant or Potentially Significant Findings (Non Lung Cancer) IMPRESSION: 1. Unremarkable low-dose screening chest CT. 2. Ventral hernia upper abdomen containing colon. No definite obstructionor incarceration. RECOMMENDATION: Low Dose CT - 1 Yr A summary letter communicating these results will be mailed to thepatient's address of record. - Note: Radiology results need to be interpreted within a comprehensiveclinical context. If you have questions about the radiology report, please contactthe office of the ordering clinician. [email or web address] Patsy Hair MD [facility] CT ORDERABLES Final Result documented in this encounter Visit Diagnoses Diagnosis Screening for malignant neoplasm of respiratory organ Special screening for malignant neoplasm of the respiratory organs Personal history of tobacco use, presenting hazards to health documented in this encounter Care Teams Firmware Manager Relationship Specialty Start Date End Date Patsy Hair MD [address] [place] [address] PCP - General Family Medicine 07/19/13 Crystal Osborne MD [address] [place] [address] [address] [place] [address] Internal Medicine-Nephrology 12/06/23 documented as of this encounter
--- OUTSIDE RECORDS SUMMARY | 2024-08-30 11:16 | XMS_ITS | Encounter Summary ---
Author Organization [place] [address] Care Team Providers Care Wood Fence Erector Name Role Phone Patsy Hair MD Primary Care Provider [phone] Crystal Osborne MD Unavailable [phone] Reason for Referral * MRI/CAT Scan (Routine) - Closed Specialty Diagnoses / Procedures Referred By Boubacar brown Referred To Contact Radiology Diagnoses Screening for malignant neoplasm of respiratory organ Personal history of tobacco use, presenting hazards to health Procedures CT LUNG CANCER SCREENING LOW DOSE Patsy Hair MD [address] [place] [address] Phone: tel: fax: Referral ID Status Reason Start Date Expiration Date Visits Re quested Visits Authorized [id number] Closed 09/01/2023 08/31/2024 1 1 Reason for Visit * MRI/CAT Scan (Routine) - Closed Specialty Diagnoses / Procedures Referred By Boubacar brown Referred To Contact Radiology Diagnoses Screening for malignant neoplasm of respiratory organ Personal history of tobacco use, presenting hazards to health Procedures CT LUNG CANCER SCREENING LOW DOSE Patsy Hair MD [address] [place] [address] Phone: tel: fax: Referral ID Status Reason Start Date Expiration Date Visits Re quested Visits Authorized [id number] Closed 09/01/2023 08/31/2024 1 1 Encounter Details Date Type Department Care Team (Late st Contact Info) Description 08/30/2024 11:16 AM EDT - 08/30/2024 11:59 PM EDT Hospital Encounter [facility] [address] [facility]. [place], [place] [phone] Patsy Hair MD [address] [place], [place] [phone] Screening for malignant neoplasm of respiratory organ; [...] mL into the muscle every 30 days. [place]/syringe also please 1 mL 11 10/31/2023 diclofenac [...] site, unspecified whether rheumatoid factor present ([facility]) 07/22/2021 hydrOXYchloroQUIN E (PLAQUENIL) 200 mg Oral TabletIndications :Rheumatoid arthritis, involving unspecified site, unspecified whether rheumatoid factor present ([facility]) 07/09/2021 lidocaine (LIDODERM) 5 % Top Adhesive Patch, Medicated Place 1 Patch onto the skin daily. 30 Patch 11 06/05/2024 methotrexate 2.5 mg Oral Tablet Take 2.5 mg by mouth once a week. Take 6 tabs PO every week mirtazapine (REMERON) 15 mg Oral TabletIndications :Rheumatoid arthritis, involving unspecified site, unspecified whether rheumatoid factor present ([facility]),Unintended weight loss Take 1 Tablet by [...] site, unspecified whether rheumatoid factor present ([facility]),Vitamin B 12 deficiency,Gastro esophageal reflux disease without esophagitis,Immun ocompromised,Athe rosclerosis of [place] artery of both lower extremities with intermittent [...] 9:40 AM EDT Office Visit SEP H&V [address] [address] Tiago Franz MD [address] [place] [address] [place] [address] 01/20/2025 3:15 PM EST Office Visit [facility] Nephrology Amandepe [address] [place] [address] Crystal Osborne MD [address] [place] [address] 09/25/2025 10:00 AM EDT Appointment [facility] MED OFC VASCULAR 20 [facility] [address] [place] [address] May, Amaris Camacho [facility] [address] [facility] [address] [place], [place] [id number] 09/25/2025 11:00 AM EDT Office Visit SEP Vascular Surg Edg [address] [facility] [address] [place] [address] [address]is [address] [place], [place] [phone] documented as of this encounter Goals Goal [...] contact the office of the ordering clinician. [email or web address] Narrative 08/30/2024 11:[address] LUNG CANCER SCREENING LOW DOSE 08/30/2024 11:35 AM CLINICAL HISTORY: Asymptomatic patient meeting NCCN high risk criteria for lung screening. Z12.2-Encounter for screening for malignant neoplasm of respiratory kotmqp-LLM-66-CM Z87.891-Personal history of nicotine rfjhozghkc-ALL-11-CM. COMPARISON: 08/30/2023 07/27/2021 PROCEDURE COMMENTS: Noncontrast, low-dose, multidetector CT chest per department protocol. Interactive 3-D postprocessing done by the reviewing physician on a [employer] workstation, using Maximum intensity projections (MIPS) and [employer] LUNG CAD for improved lesion detection. Ramos images archived to PACS. Dose 1 : CT DLP Total : 30.7 mGycm DLP Spiral Max : 30.7 mGycm Maximum CTDI Vol : 0.9 mGy SSDE : 1.278 mGy SSDE Diameter : 26.2 cm SSDE Source : [employer] FINDINGS: No suspicious pulmonary nodule. No acute inflammatory process. Heart and mediastinum unremarkable. There is a ventral hernia in the upper abdomen containing colon. No definite obstruction or incarceration. Coronary artery calcification: Moderate. FOLLOW-UP CODE: Lung-RADS Category 1: Negative: No nodule or definitely benign nodule(s). Continued ANNUAL LOW-DOSE SCREENING CT SCAN (IMG [id number]) suggested if age <78. Lung-RADS Modifier S: Clinically Significant or Potentially Significant Findings (Non Lung Cancer) Procedure Note Jose Calix MD - 08/30/2024 CT LUNG CANCER SCREENING LOW DOSE 08/30/2024 11:35 AM CLINICAL HISTORY: Asymptomatic patient meeting NCCN high risk criteria forlung screening. Z12.2-Encounter for screening for malignant neoplasm ofrespiratory plzscz-ENK-55-CM Z87.891-Personal history of nicotine tplgnkprft-WOS-55-CM. COMPARISON: 08/30/2023 07/27/2021 PROCEDURE COMMENTS: Noncontrast, low-dose, multidetector CT chest perdepartment protocol. Interactive 3-D postprocessing done by the reviewing physicianon a [employer] workstation, using Maximum intensity projections (MIPS) and [employer] Aer[employer]G CAD for improved lesion detection. Ramos images [...] Continued ANNUAL LOW-DOSE SCREENING CT SCAN ([place] [id number])suggested if age <78. Lung-RADS Modifier S: Clinically [...] please contactthe office of the ordering clinician. [email or web address] Patsy Hair MD [facility] CT ORDERABLES Final Result documented in this encounter Visit Diagnoses Diagnosis Screening for malignant neoplasm of respiratory organ Special screening for malignant neoplasm of the respiratory organs Personal history of tobacco use, presenting hazards to health documented in this encounter Care Teams Wood Fence Erector Relationship Specialty Start Date End Date Patsy Hair MD [address] [place] [address] PCP - General Family Medicine 07/19/13 Crystal Osborne MD [address] [place] [address] [address] [place] [address] Internal Medicine-Nephrology 12/06/23 documented as of this encounter
--- OUTSIDE RECORDS SUMMARY | 2024-09-11 10:45 | XMS_ITS | Encounter Summary ---
Author Organization [place] [address] Care Team Providers Care Associate Director Of Biostatistics Name Role Phone Patsy Hair MD Primary Care Provider [phone] Crystal Osborne MD Unavailable [phone] Reason for Referral * Consultation (Routine) - Authorization Not Needed Specialty Diagnoses / Procedures Referred By Contac t Referred To Contact Cardiology Diagnoses Atherosclerosis of hopi artery of both lower extremities with intermittent claudication PAD (peripheral artery disease) Coronary artery calcification seen on CT scan Procedures IN OFFICE/OUTPATIENT NEW MODERATE MDM 45 MINUTES Patsy Hair MD [address] [place] [address] Phone: tel: fax: Chidi Enriquez MD [address] [place] [address] Phone: tel: fax: Referral ID Status Reason Start Date Expiration Date Visits Requested Visits Authorized [id number] Authorization Not Needed 09/11/2024 09/11/2025 99 99 Reason for Visit * Reason Comments Diarrhea Emesis Arthritis Medication Refill Encounter Details Date Type Department Care Team (Late st Contact Info) Description 09/11/2024 10:45 AM EDT Office Visit [facility] [address] [phone] Patsy Hair MD [address] [place] [address] Diverticulitis of large intestine without perforation or abscess without bleeding (Primary Dx); Rheumatoid arthritis, involving unspecified site, unspecified whether rheumatoid factor present (HCC); Vitamin B 12 deficiency; Gastroesophageal reflux disease without esophagitis; Immunocompromised; Atherosclerosis of hopi artery of both lower extremities with intermittent claudication; PAD (peripheral artery disease); Stage 3b chronic kidney disease (HCC); Wheeze; COPD with acute exacerbation (HCC); Generalized anxiety disorder; Recurrent major depression resistant to treatment; Generalized abdominal pain; Migraine without aura and without status migrainosus, not intractable; Peripheral edema; Ventral incisional hernia without obstruction or gangrene; Coronary artery calcification seen on CT scan Social History Tobacco Use Types Packs/Day Years Used Date Smoking Tobacco: Every Day Cigarettes 1 72.6 Started: 02/13/1977 Passive Smoke Exposure: Current Smokeless Tobacco: Never Tobacco Cessation:Ready to Q uit: Not Asked; Counseling Given: Not Answered Comments:Quit in the past but always start back. Alcohol Use Standard Drinks/Week [...] Sign Reading Time Taken Comments Blood Pressure 92/60 09/11/2024 10:43 AM EDT Pulse - - Temperature 36.7 C (98.1 F) 09/11/2024 10:43 AM EDT Respiratory Rate - - Oxygen Saturation - - Inhaled Oxygen Concentration - - Weight 48.5 kg (107 lb) 09/11/2024 10:43 AM EDT Height 142.2 cm (4' 8 ) 09/11/2024 10:43 AM EDT Body Mass Index 23.99 09/11/2024 10:43 AM EDT documented in this encounter Functional [...] Winnie Pinto RMA documented in this encounter Ordered Prescriptions Prescription Sig Dispense Quantity Refills Last Filled Start Date End Date fUROsemide (LASIX) 20 mg Oral TabletIndications: Peripheral edema TAKE 1 TABLET BY MOUTH ONCE A DAY NEEDED FOR SWELLING 90 Tablet 1 09/11/2024 ANORO ELLIPTA 62.5-25 mcg/actuation Inhl Disk with DeviceIndications: COPD with acute exacerbation (HCC) Inhale 1 Puff into the lungs daily. 60 Each 2 09/11/2024 atorvastatin (LIPITOR) 40 mg Oral Tablet Take 1 Tablet by mouth daily. 90 Tablet 3 09/11/2024 rimegepant (NURTEC ODT) 75 mg Oral Tablet, Rapid DissolveIndication s:Migraine without aura and without status migrainosus, not intractable DISSOLVE 1 TABLET ON THE TONGUE EVERY 48 HOURS ONLY NEEDED FOR MIGRAINE 8 Tablet 6 09/11/2024 omeprazole (PRILOSEC) 40 mg Oral Capsule, Delayed Release(E.C.) TAKE 1 CAPSULE BY MOUTH ONCE A DAY 90 Capsule 3 09/11/2024 famotidine (PEPCID) 40 mg Oral TabletIndications: Generalized abdominal pain Take 1 Tablet by mouth every evening. 90 Tablet 3 09/11/2024 escitalopram oxalate (LEXAPRO) 20 mg Oral TabletIndications: Generalized anxiety disorder Take 1 Tablet by mouth daily. 90 Tablet 3 09/11/2024 DULoxetine (CYMBALTA) 60 mg Oral Capsule, Delayed Release(E.C.)Indic ations:Generalized anxiety disorder,Recurrent major depression resistant to treatment Take 2 Capsules by mouth daily. 200 Capsule 1 09/11/2024 doxepin (SINEQUAN) 10 mg Oral Capsule Take 1 Capsule by mouth nightly. 90 Capsule 3 09/11/2024 clopidogreL (PLAVIX) 75 mg Oral Tablet Take 1 Tablet by mouth daily. 90 Tablet 3 09/11/2024 cariprazine (VRAYLAR) 1.5 mg Oral CapsuleIndications :Generalized anxiety disorder,Recurrent major depression resistant to treatment Take 1 Capsule by mouth daily. 90 Capsule 3 09/11/2024 alendronate (FOSAMAX) 70 mg Oral Tablet Take 1 Tablet by mouth once a week. 12 Tablet 3 09/11/2024 budesonide-glycopy r-formoterol (BREZTRI AEROSPHERE) 160-9-4.8 mcg/actuation Inhl HFA Aerosol InhalerIndications :COPD with acute exacerbation (HCC) Inhale 2 Puffs into the lungs 2 times daily. 10.7 g 11 09/11/2024 albuterol (PROVENTIL HFA;VENTOLIN HFA) 90 mcg/actuation Inhl HFA Aerosol InhalerIndications :Wheeze Inhale 2 Puffs into the lungs every 4 hours as needed. for wheezing 18 g 2 09/11/2024 rivaroxaban (XARELTO) 2.5 mg Oral Tablet Take 1 Tablet by mouth 2 times daily. 60 Tablet 5 09/11/2024 cyclobenzaprine (FLEXERIL) 10 mg Oral Tablet Take 1 Tablet by mouth every 8 hours as needed for Muscle spasms for up to 30 days. 90 Tablet 2 09/11/2024 gabapentin (NEURONTIN) 800 mg Oral TabletIndications: Rheumatoid arthritis, involving unspecified site, unspecified whether rheumatoid factor present (HCC),Vitamin B 12 deficiency,Gastroe sophageal reflux disease without esophagitis,Immuno compromised,Athero sclerosis of hopi artery of both lower extremities with intermittent claudication,PAD (peripheral artery disease),Stage 3b chronic kidney disease (HCC) TAKE 1 TABLET BY MOUTH EVERY EVENING MAY TAKE ADDITIONAL 1/2 TABLET EVERY MORNING AND EVERY AFTERNOON NEEDED 60 Tablet 09/11/2024 metroNIDAZOLE (FLAGYL) 500 mg Oral TabletIndications: Diverticulitis of large intestine without perforation or abscess without bleeding Take 1 Tablet by mouth 3 times daily for 7 days. 21 Tablet 09/11/2024 5 ciprofloxacin HCl (CIPRO) 500 mg Oral TabletIndications: Diverticulitis of large intestine without perforation or abscess without bleeding Take 1 Tablet by mouth 2 times daily for 7 days. 14 Tablet 09/11/2024 5 documented in this encounter Progress Notes * Patsy Hair MD - 09/11/2024 10:45 AM EDT Assessment & Plan 1. Diarrhea. - Ongoing diarrhea with associated cramping, despite taking Imodium. - No blood in the stool or high fever; unable to eat for the past 2 to 3 days. - History of diverticulitis with perforation and abscess. - Prescription for Cipro and Flagyl sent to pharmacy. 2. Ventral hernia. - Ventral hernia with colon protruding through, risk of twisting and infection. - Advised to consult with a surgeon, preferably Dr. Miner in [facility]. - Will inform the office if a surgeon is found in [facility]. - Incisional hernia likely related to previous colonoscopy. 3. Coronary artery disease. - History of coronary artery disease; has not seen a front tender in a long time. - Referral to Dr. Enriquez at the [facility] for cardiac evaluation. - Previously managed by a heart doctor; now needs follow-up. - Coronary artery disease also present in legs. 4. Lung screening. - Lung screening results are stable. - Repeat screening scheduled for next year. - No immediate concerns from the lung screening. Dx/Orders: Diagnoses and all orders for this visit: Diverticulitis of large intestine without perforation or abscess without bleeding - ciprofloxacin HCl (CIPRO) 500 mg Oral Tablet; Take 1 Tablet by mouth 2 times daily for 7 days. Dispense: 14 Tablet; Refill: 0 - metroNIDAZOLE (FLAGYL) 500 mg Oral Tablet; Take 1 Tablet by mouth 3 times daily for 7 days. Dispense: 21 Tablet; Refill: 0 - CBC WITH DIFF; Future - COMPREHENSIVE METABOLIC PANEL; Future - LIPID SCREEN; Future - TSH REFLEX TO FT4; Future - VITAMIN B12/ FOLIC ACID; Future - VITAMIN D 25 HYDROXY; Future Rheumatoid arthritis, involving unspecified site, unspecified whether rheumatoid factor present (HCC) (Chronic) - gabapentin (NEURONTIN) 800 mg Oral Tablet; TAKE 1 TABLET BY MOUTH EVERY EVENING MAY TAKE ADDITIONAL 1/2 TABLET EVERY MORNING AND EVERY AFTERNOON NEEDED Dispense: 60 Tablet; Refill: 0 - CBC WITH DIFF; Future - COMPREHENSIVE METABOLIC PANEL; Future - LIPID SCREEN; Future - TSH REFLEX TO FT4; Future - VITAMIN B12/ FOLIC ACID; Future - VITAMIN D 25 HYDROXY; Future - methylPREDNISolone acetate (DEPO-Medrol) injection 120 mg - ketorolac (TORADOL) injection 60 mg Vitamin B 12 deficiency - gabapentin (NEURONTIN) 800 mg Oral Tablet; TAKE 1 TABLET BY MOUTH EVERY EVENING MAY TAKE ADDITIONAL 1/2 TABLET EVERY MORNING AND EVERY AFTERNOON NEEDED Dispense: 60 Tablet; Refill: 0 - CBC WITH DIFF; Future - COMPREHENSIVE METABOLIC PANEL; Future - LIPID SCREEN; Future - TSH REFLEX TO FT4; Future - VITAMIN B12/ FOLIC ACID; Future - VITAMIN D 25 HYDROXY; Future Gastroesophageal reflux disease without esophagitis - gabapentin (NEURONTIN) 800 mg Oral Tablet; TAKE 1 TABLET BY MOUTH EVERY EVENING MAY TAKE ADDITIONAL 1/2 TABLET EVERY MORNING AND EVERY AFTERNOON NEEDED Dispense: 60 Tablet; Refill: 0 - CBC WITH DIFF; Future - COMPREHENSIVE METABOLIC PANEL; Future - LIPID SCREEN; Future - TSH REFLEX TO FT4; Future - VITAMIN B12/ FOLIC ACID; Future - VITAMIN D 25 HYDROXY; Future Immunocompromised (Chronic) Overview: On humira. rheumatology Orders: - gabapentin (NEURONTIN) 800 mg Oral Tablet; TAKE 1 TABLET BY MOUTH EVERY EVENING MAY TAKE ADDITIONAL 1/2 TABLET EVERY MORNING AND EVERY AFTERNOON NEEDED Dispense: 60 Tablet; Refill: 0 - CBC WITH DIFF; Future - COMPREHENSIVE METABOLIC PANEL; Future - LIPID SCREEN; Future - TSH REFLEX TO FT4; Future - VITAMIN B12/ FOLIC ACID; Future - VITAMIN D 25 HYDROXY; Future Atherosclerosis of hopi artery of both lower extremities with intermittent claudication (Chronic) - gabapentin (NEURONTIN) 800 mg Oral Tablet; TAKE 1 TABLET BY MOUTH EVERY EVENING MAY TAKE ADDITIONAL 1/2 TABLET EVERY MORNING AND EVERY AFTERNOON NEEDED Dispense: 60 Tablet; Refill: 0 - AMB REFERRAL TO CARDIOLOGY - CBC WITH DIFF; Future - COMPREHENSIVE METABOLIC PANEL; Future - LIPID SCREEN; Future - TSH REFLEX TO FT4; Future - VITAMIN B12/ FOLIC ACID; Future - VITAMIN D 25 HYDROXY; Future PAD (peripheral artery disease) (Chronic) Overview: Worse on the left leg Orders: - gabapentin (NEURONTIN) 800 mg Oral Tablet; TAKE 1 TABLET BY MOUTH EVERY EVENING MAY TAKE ADDITIONAL 1/2 TABLET EVERY MORNING AND EVERY AFTERNOON NEEDED Dispense: 60 Tablet; Refill: 0 - AMB REFERRAL TO CARDIOLOGY - CBC WITH DIFF; Future - COMPREHENSIVE METABOLIC PANEL; Future - LIPID SCREEN; Future - TSH REFLEX TO FT4; Future - VITAMIN B12/ FOLIC ACID; Future - VITAMIN D 25 HYDROXY; Future Stage 3b chronic kidney disease (HCC) (Chronic) - gabapentin (NEURONTIN) 800 mg Oral Tablet; TAKE 1 TABLET BY MOUTH EVERY EVENING MAY TAKE ADDITIONAL 1/2 TABLET EVERY MORNING AND EVERY AFTERNOON NEEDED Dispense: 60 Tablet; Refill: 0 - CBC WITH DIFF; Future - COMPREHENSIVE METABOLIC PANEL; Future - LIPID SCREEN; Future - TSH REFLEX TO FT4; Future - VITAMIN B12/ FOLIC ACID; Future - VITAMIN D 25 HYDROXY; Future Wheeze - albuterol (PROVENTIL HFA;VENTOLIN HFA) 90 mcg/actuation Inhl HFA Aerosol Inhaler; Inhale 2 Puffs into the lungs every 4 hours as needed. for wheezing Dispense: 18 g; Refill: 2 - CBC WITH DIFF; Future - COMPREHENSIVE METABOLIC PANEL; Future - LIPID SCREEN; Future - TSH REFLEX TO FT4; Future - VITAMIN B12/ FOLIC ACID; Future - VITAMIN D 25 HYDROXY; Future COPD with acute exacerbation (HCC) (Chronic) - vvtzoklrxj-jqpknwma-pyphbvdptq (BREZTRI AEROSPHERE) 160-9-4.8 mcg/actuation Inhl HFA Aerosol Inhaler; Inhale 2 Puffs into the lungs 2 times daily. Dispense: 10.7 g; Refill: 11 - ANORO ELLIPTA 62.5-25 mcg/actuation Inhl Disk with Device; Inhale 1 Puff into the lungs daily. Dispense: 60 Each; Refill: 2 - CBC WITH DIFF; Future - COMPREHENSIVE METABOLIC PANEL; Future - LIPID SCREEN; Future - TSH REFLEX TO FT4; Future - VITAMIN B12/ FOLIC ACID; Future - VITAMIN D 25 HYDROXY; Future Generalized anxiety disorder - cariprazine (VRAYLAR) 1.5 mg Oral Capsule; Take 1 Capsule by mouth daily. Dispense: 90 Capsule; Refill: 3 - DULoxetine (CYMBALTA) 60 mg Oral Capsule, Delayed Release(E.C.); Take 2 Capsules by mouth daily. Dispense: 200 Capsule; Refill: 1 - escitalopram oxalate (LEXAPRO) 20 mg Oral Tablet; Take 1 Tablet by mouth daily. Dispense: 90 Tablet; Refill: 3 - CBC WITH DIFF; Future - COMPREHENSIVE METABOLIC PANEL; Future - LIPID SCREEN; Future - TSH REFLEX TO FT4; Future - VITAMIN B12/ FOLIC ACID; Future - VITAMIN D 25 HYDROXY; Future Recurrent major depression resistant to treatment (Chronic) - cariprazine (VRAYLAR) 1.5 mg Oral Capsule; Take 1 Capsule by mouth daily. Dispense: 90 Capsule; Refill: 3 - DULoxetine (CYMBALTA) 60 mg Oral Capsule, Delayed Release(E.C.); Take 2 Capsules by mouth daily. Dispense: 200 Capsule; Refill: 1 - CBC WITH DIFF; Future - COMPREHENSIVE METABOLIC PANEL; Future - LIPID SCREEN; Future - TSH REFLEX TO FT4; Future - VITAMIN B12/ FOLIC ACID; Future - VITAMIN D 25 HYDROXY; Future Generalized abdominal pain - famotidine (PEPCID) 40 mg Oral Tablet; Take 1 Tablet by mouth every evening. Dispense: 90 Tablet;Refill: 3 - CBC WITH DIFF; Future - COMPREHENSIVE METABOLIC PANEL; Future - LIPID SCREEN; Future - TSH REFLEX TO FT4; Future - VITAMIN B12/ FOLIC ACID; Future - VITAMIN D 25 HYDROXY; Future Migraine without aura and without status migrainosus, not intractable - rimegepant (NURTEC ODT) 75 mg Oral Tablet, Rapid Dissolve; DISSOLVE 1 TABLET ON THE TONGUE EVERY 48 HOURS ONLY NEEDED FOR MIGRAINE Dispense: 8 Tablet; Refill: 6 - CBC WITH DIFF; Future - COMPREHENSIVE METABOLIC PANEL; Future - LIPID SCREEN; Future - TSH REFLEX TO FT4; Future - VITAMIN B12/ FOLIC ACID; Future - VITAMIN D 25 HYDROXY; Future Peripheral edema - fUROsemide (LASIX) 20 mg Oral Tablet; TAKE 1 TABLET BY MOUTH ONCE A DAY NEEDED FOR SWELLING Dispense: 90 Tablet; Refill: 1 - CBC WITH DIFF; Future - COMPREHENSIVE METABOLIC PANEL; Future - LIPID SCREEN; Future - TSH REFLEX TO FT4; Future - VITAMIN B12/ FOLIC ACID; Future - VITAMIN D 25 HYDROXY; Future Ventral incisional hernia without obstruction or gangrene - CBC WITH DIFF; Future - COMPREHENSIVE METABOLIC PANEL; Future - LIPID SCREEN; Future - TSH REFLEX TO FT4; Future - VITAMIN B12/ FOLIC ACID; Future - VITAMIN D 25 HYDROXY; Future Coronary artery calcification seen on CT scan - AMB REFERRAL TO CARDIOLOGY - CBC WITH DIFF; Future - COMPREHENSIVE METABOLIC PANEL; Future - LIPID SCREEN; Future - TSH REFLEX TO FT4; Future - VITAMIN B12/ FOLIC ACID; Future - VITAMIN D 25 HYDROXY; Future Other orders - cyclobenzaprine (FLEXERIL) 10 mg Oral Tablet; Take 1 Tablet by mouth every 8 hours as needed for Muscle spasms for up to 30 days. Dispense: 90 Tablet; Refill: 2 - rivaroxaban (XARELTO) 2.5 mg Oral Tablet; Take 1 Tablet by mouth 2 times daily. Dispense: 60 Tablet; Refill: 5 - alendronate (FOSAMAX) 70 mg Oral Tablet; Take 1 Tablet by mouth once a week. Dispense: 12 Tablet;Refill: 3 - clopidogreL (PLAVIX) 75 mg Oral Tablet; Take 1 Tablet by mouth daily. Dispense: 90 Tablet; Refill: 3 - doxepin (SINEQUAN) 10 mg Oral Capsule; Take 1 Capsule by mouth nightly. Dispense: 90 Capsule; Refill: 3 - omeprazole (PRILOSEC) 40 mg Oral Capsule, Delayed Release(E.C.); TAKE 1 CAPSULE BY MOUTH ONCE A DAY Dispense: 90 Capsule; Refill: 3 - atorvastatin (LIPITOR) 40 mg Oral Tablet; Take 1 Tablet by mouth daily. Dispense: 90 Tablet; Refill: 3 No follow-ups on file. Subjective Vanessa Gonzalez is a 63 y.o. female Chief Complaint Patient presents with Diarrhea Emesis Arthritis Medication Refill Diarrhea This is a new problem. The current episode started in the past 7 days. The problem occurs 2 to 4 times per day. The problem has been unchanged. Associated symptoms include arthralgias and vomiting. Emesis This is a new problem. The current episode started in the past 7 days. The problem occurs 2 to 4 times per day. The problem has been unchanged. Associated symptoms include arthralgias and diarrhea. Arthritis This is a chronic problem. The current episode started more than 1 year ago. The problem occurs constantly. The problem is unchanged. Medication Refill This is a new problem. The current episode started today. The problem occurs constantly. The problem has been unchanged. Associated symptoms include arthralgias and vomiting. History of Present Illness The patient presents for evaluation of diarrhea, ventral hernia, and coronary artery disease. She reports ongoing diarrhea, although the vomiting has ceased. She has not noticed any blood in her stool or experienced high fevers. Despite taking Imodium, she continues to experience cramping. Anattempt to eat this morning resulted in immediate diarrhea. She feels weak and suspects overexertion over the weekend may have contributed to her current state. She has not eaten anything for the past 2 to 3 days. She considered seeking emergency care in [facility] but decided against it. She is not currently on any blood pressure medication. She has a history of diverticulitis with perforation and abscess. She mentions an issue identified during a lung screening but is unsure of the details. The screening is scheduled to be repeated next year. She has coronary artery disease in her heart and legs. She does not currently see a front tender and is interested in finding one in [facility] or [place]. She has a ventral hernia in her abdomen that is causing discomfort. She is interested in having it repaired if possible. She wonders if it could be related to a previous colonoscopy. She has an appointment with her crm administrator tomorrow. PAST SURGICAL HISTORY: Colonoscopy Review of Systems Constitutional: Negative. HENT: Negative. Respiratory: Negative. Cardiovascular: Negative. Gastrointestinal: Positive for diarrhea and vomiting. Genitourinary: Negative. Musculoskeletal: Positive for arthralgias, arthritis and back pain. Negative for gait problem. Skin: Negative. Psychiatric/Behavioral: Positive for sleep disturbance. Negative for self-injury and suicidal ideas. The patient is nervous/anxious. Objective Blood pressure 92/60, temperature 98.1 ??F (36.7 ??C), height 4' 8 (1.422 m), weight 107 lb (48.5 kg), not currently . Body mass index is 23.99 kg/m??. Physical Exam Respiratory: Clear to auscultation, no wheezing, rales or rhonchi Physical Exam Vitals and nursing note reviewed. HENT: Head: Normocephalic. Cardiovascular: Rate and Rhythm: Normal rate. Heart sounds: No murmur heard. Pulmonary: Effort: Pulmonary effort is normal. Breath sounds: No wheezing. Abdominal: Palpations: Abdomen is soft. Tenderness: There is no abdominal tenderness. Musculoskeletal: General: Tenderness present. Neurological: General: No focal deficit present. Mental Status: She is alert. Psychiatric: Mood and Affect: Mood normal. Results Imaging - Lung screening: Stable results Results for orders placed or performed in visit on 09/11/24 CBC WITH DIFF Result Value Ref Range WBC 7.6 3.7 - 10.3 x10(3)/mcL RBC 4.99 3.90 - 5.20 x10(6)/mcL Hgb 15.2 11.2 - 15.7 g/dL Hct 46.9 (H) 34.0 - 45.0 % MCV 94.0 80.0 - 100.0 fL MCH 30.5 26.0 - 34.0 pg MCHC 32.4 30.7 - 35.5 g/dL RDW 14.4 <=14.9 % Platelet 253 155 - 369 x10(3)/mcL MPV 13.0 (H) 8.8 - 12.5 fL Neut Percent 53.4 % Imm Gran% 0.3 % Lymph Percent 36.4 % [place] Percent 6.2 % Eos Percent 3.2 % Baso Percent 0.5 % Neut # 4.1 1.6 - 6.1 x10(3)/mcL IMMGRAN# 0.0 0.0 - 0.1 x10(3)/mcL Lymph # 2.8 1.2 - 3.9 x10(3)/mcL [place] # 0.5 0.3 - 0.9 x10(3)/mcL Eos# 0.2 0.0 - 0.5 x10(3)/mcL Baso # 0.0 0.0 - 0.1 x10(3)/mcL COMPREHENSIVE METABOLIC PANEL Result Value Ref Range Sodium 142 136 - 145 mmol/L Potassium 3.1 (L) 3.5 - 5.0 mmol/L Chloride 103 98 - 107 mmol/L Total CO2 28 22 - 29 mmol/L Anion Gap 11 7 - 16 mmol/L Calcium 9.2 8.8 - 10.4 mg/dL Glucose Lvl 123 (H) 70 - 99 mg/dL BUN 10 8 - 23 mg/dL Creatinine 1.37 (H) 0.51 - 1.30 mg/dL Albumin 3.9 3.2 - 4.6 gm/dL Total Protein 7.1 6.4 - 8.3 gm/dL Bili Total 0.4 0.2 - 1.3 mg/dL ALT 11 <=41 U/L AST 24 <=40 U/L Alk Phos 73 36 - 123 U/L eGFR (CKD-EPIcr 2020) 44 (L) >=60 mL/min/1.73 m2 LIPID SCREEN Result Value Ref Range Cholesterol 189 <200 mg/dL Triglyceride 93 <150 mg/dL HDL 86 >=40 mg/dL LDL Calculated 87 <100 mg/dL Non-HDL-C Calculated 103 <=129 mg/dL Fasting Specimen? Yes None TSH REFLEX TO FT4 Result Value Ref Range TSH Reflex 1.730 0.270 - 4.200 mcIU/mL Narrative Ingestion of eh doses of biotin (>5 mg/day) taken within 8 hours of drawing blood sample can interfere with this immunoassay test. VITAMIN B12/ FOLIC ACID Result Value Ref Range Vitamin B12 >1,600 (H) 232 - 1,245 pg/mL Folate >16.00 >=4.80 ng/mL Narrative Ingestion of eh doses of biotin (>5 mg/day) taken within 8 hours of drawing blood sample can interfere with this immunoassay test. VITAMIN D 25 HYDROXY Result Value Ref Range Vit D 25 OH 44.0 30.0 - 150.0 ng/mL The provider educated the patient (or legal practice representative) on the use of the ambient listening artificial intelligence tool, App[employer]io. They were informed that this AI tool processes the conversation to generate a clinical note with the expected benefit of improved accuracy while achieving an improved encounter experience for the patient and provider.?The provider explained that the medical information captured by the AI tool including, but not limited to, diagnoses and treatment plan would be protected in accordance with applicable privacy laws and that all diagnoses and treatment decisions would be made by the provider. The provider explained that the note generated will be reviewed bythe provider for accuracy to minimize potential errors.? The patient was given an opportunity to ask questions and opt out of proceeding with the use of the AI tool. After being informed of such information, the patient (or legal practice representative), and each individual in attendance with the patient, verbally consented to the use of the AI tool. documented in this encounter Plan of Treatment Upcoming Encounters Date Type Department Care Team (Late st Contact Info) Description 10/30/2024 9:40 AM EDT Office Visit [facility] [place] [address] [place] [address] Tiago Franz MD [address] [place], [place] [id number] 01/20/2025 3:15 PM EST Office Visit [facility] Nephrology [address] [place] [address] Crystal Osborne MD [address] [facility] [address] [place] [address] 09/25/2025 10:00 AM EDT Appointment [facility] [address] [facility] [address] [place] [address] JuneAmaris APRN [address] [place] [address] [address] [place], [place] [id number] 09/25/2025 11:00 AM EDT Office Visit [facility] [address] [place] [address] [address] [place] [address] JuneAmaris APRN [address] [place] [address] [address] [place], [place] [id number] Scheduled Referrals Name Type Priority Associated Diagnoses Orde r Schedule AMB REFERRAL TO CARDIOLOGY Outpatient Referral Routine Atherosclerosis of hopi artery of both lower extremities with intermittent claudication PAD (peripheral artery disease) Coronary artery calcification seen on CT scan Ordered: 09/11/2024 documented as of this encounter Goals Goal Patient Goal Type Associated Problems Recent Progress Patient-Stated? Author Eat better, exercise, reach an ideal body weight General No Vanna Rooney RMA Stay Tobacco Free Lifestyle No Vanna Rooney RMA documented as of this encounter Procedures Procedure Name Priority Date/Time Associated Diagnosis Comments VITAMIN B12/ FOLIC ACID Routine 09/11/2024 11:17 AM EDT Rheumatoid arthritis, involving unspecified site, unspecified whether rheumatoid factor present (HCC) Vitamin B 12 deficiency Gastroesophageal reflux disease without esophagitis Immunocompromised Atherosclerosis of hopi artery of both lower extremities with intermittent claudication PAD (peripheral artery disease) Stage 3b chronic kidney disease (HCC) Wheeze COPD with acute exacerbation (HCC) Generalized anxiety disorder Recurrent major depression resistant to treatment Generalized abdominal pain Migraine without aura and without status migrainosus, not intractable Peripheral edema Diverticulitis of large intestine without perforation or abscess without bleeding Ventral incisional hernia without obstruction or gangrene Coronary artery calcification seen on CT scan TSH REFLEX TO FT4 Routine 09/11/2024 11: 17 AM EDT Rheumatoid arthritis, involving unspecified site, unspecified whether rheumatoid factor present (HCC) Vitamin B 12 deficiency Gastroesophageal reflux disease without esophagitis Immunocompromised Atherosclerosis of hopi artery of both lower extremities with intermittent claudication PAD (peripheral artery disease) Stage 3b chronic kidney disease (HCC) Wheeze COPD with acute exacerbation (HCC) Generalized anxiety disorder Recurrent major depression resistant to treatment Generalized abdominal pain Migraine without aura and without status migrainosus, not intractable Peripheral edema Diverticulitis of large intestine without perforation or abscess without bleeding Ventral incisional hernia without obstruction or gangrene Coronary artery calcification seen on CT scan VITAMIN D 25 HYDROXY Routine 09/11/2024 11:17 AM EDT Rheumatoid arthritis, involving unspecified site, unspecified whether rheumatoid factor present (HCC) Vitamin B 12 deficiency Gastroesophageal reflux disease without esophagitis Immunocompromised Atherosclerosis of hopi artery of both lower extremities with intermittent claudication PAD (peripheral artery disease) Stage 3b chronic kidney disease (HCC) Wheeze COPD with acute exacerbation (HCC) Generalized anxiety disorder Recurrent major depression resistant to treatment Generalized abdominal pain Migraine without aura and without status migrainosus, not intractable Peripheral edema Diverticulitis of large intestine without perforation or abscess without bleeding Ventral incisional hernia without obstruction or gangrene Coronary artery calcification seen on CT scan CBC WITH DIFF Routine 09/11/2024 11:17 AM EDT Rheumatoid arthritis, involving unspecified site, unspecified whether rheumatoid factor present (HCC) Vitamin B 12 deficiency Gastroesophageal reflux disease without esophagitis Immunocompromised Atherosclerosis of hopi artery of both lower extremities with intermittent claudication PAD (peripheral artery disease) Stage 3b chronic kidney disease (HCC) Wheeze COPD with acute exacerbation (HCC) Generalized anxiety disorder Recurrent major depression resistant to treatment Generalized abdominal pain Migraine without aura and without status migrainosus, not intractable Peripheral edema Diverticulitis of large intestine without perforation or abscess without bleeding Ventral incisional hernia without obstruction or gangrene Coronary artery calcification seen on CT scan LIPID SCREEN Routine 09/11/2024 11:17 AM EDT Rheumatoid arthritis, involving unspecified site, unspecified whether rheumatoid factor present (HCC) Vitamin B 12 deficiency Gastroesophageal reflux disease without esophagitis Immunocompromised Atherosclerosis of hopi artery of both lower extremities with intermittent claudication PAD (peripheral artery disease) Stage 3b chronic kidney disease (HCC) Wheeze COPD with acute exacerbation (HCC) Generalized anxiety disorder Recurrent major depression resistant to treatment Generalized abdominal pain Migraine without aura and without status migrainosus, not intractable Peripheral edema Diverticulitis of large intestine without perforation or abscess without bleeding Ventral incisional hernia without obstruction or gangrene Coronary artery calcification seen on CT scan COMPREHENSIVE METABOLIC PANEL Routine 09/11/2024 11:17 AM EDT Rheumatoid arthritis, involving unspecified site, unspecified whether rheumatoid factor present (HCC) Vitamin B 12 deficiency Gastroesophageal reflux disease without esophagitis Immunocompromised Atherosclerosis of hopi artery of both lower extremities with intermittent claudication PAD (peripheral artery disease) Stage 3b chronic kidney disease (HCC) Wheeze COPD with acute exacerbation (HCC) Generalized anxiety disorder Recurrent major depression resistant to treatment Generalized abdominal pain Migraine without aura and without status migrainosus, not intractable Peripheral edema Diverticulitis of large intestine without perforation or abscess without bleeding Ventral incisional hernia without obstruction or gangrene Coronary artery calcification seen on CT scan documented in this encounter Results * VITAMIN D 25 HYDROXY (09/11/2024 11:17 AM EDT) Vit D 25 OH 44.0 30.0 - 150.0 ng/mL 09/11/2024 5:04 PM EDT We Comment: Preferred: >= 30 ng/mL Insufficient: 21-29 ng/mL Deficient <= 20 ng/mL Possible Toxicity: >150 ng/mL Samples should not be taken from patients receiving therapy with high biotin doses (i.e. > 5 mg/day) until at least 8 hours following the last biotin administration. Blood VENOUS BLOOD / Unknown Venipuncture / Unknown 09/11/2024 11:17 AM EDT 09/11/2024 11:17 AM EDT Patsy Hair MD CHEMISTRY ORDERABLES Final Res ult Performing Organization Address [facility] Phone Number [facility] [employer], [place] [address] * (ABNORMAL) VITAMIN B12/ FOLIC ACID (09/11/2024 11:17 AM EDT) Vitamin B12 >1,600(H) 232 - 1,245 pg/mL 09/11/2024 5:04 PM EDT [facility] [facility] Folate >16.00 >=4.80 ng/mL 09/11/2024 5:04 PM EDT [facility] [employer] Blood VENOUS BLOOD / Unknown Venipuncture / Unknown 09/11/2024 11:17 AM EDT 09/11/2024 11:17 AM EDT Narrative [facility] [employer] - 09/11/2024 5:04 PM EDT Ingestion of eh doses of biotin (>5 mg/day) taken within 8 hours of drawing blood sample can interfere with this immunoassay test. us Patsy Hair MD CHEMISTRY ORDERABLES Final Res ult Performing Organization Address [facility] Phone Number [facility] [employer] [address] * TSH REFLEX TO FT4 (09/11/2024 11:17 AM EDT) TSH Reflex 1.730 0.270 - 4.200 mcIU/mL 09/11/2024 3:17 PM EDT [facility] [employer] Blood VENOUS BLOOD / Unknown Venipuncture / Unknown 09/11/2024 11:17 AM EDT 09/11/2024 11:17 AM EDT Narrative [facility] [employer] - 09/11/2024 3:17 PM EDT Ingestion of eh doses of biotin (>5 mg/day) taken within 8 hours of drawing blood sample can interfere with this immunoassay test. us Patsy Hair MD CHEMISTRY ORDERABLES Final Res ult We [address] [facility] , [place] [address] * LIPID SCREEN (09/11/2024 11:17 AM EDT) Cholesterol 189 <200 mg/dL 09/11/2024 3:17 PM EDT We Comment: < 200 Desirable 200 - 239 Borderline High >= 240 High Triglyceride 93 <150 mg/dL 09/11/2024 3:17 PM EDT We Comment: < 150 Normal 150 - 199 Borderline High 200 - 499 High >= 500 Very High HDL 86 >=40 mg/dL 09/11/2024 3:17 PM EDT We Comment: > 60 Optimal 40 - 60 Acceptable < 40 Low LDL Calculated 87 <100 mg/dL 09/11/2024 3:17 PM EDT We Comment: < 100 Optimal 100 - 129 Near or above optimal 130 - 159 Borderline High 160 - 189 High >= 190 Very High The National Institutes of Health (NIH) equation is used for all lipid panels that report calculated LDL (LDL-C). Non-HDL-C Calculated 103 <=129 mg/dL 09/11/2024 3:17 PM EDT We Comment: <130 Desirable 130-159 Above Desirable 160-189 Borderline High 190-219 High >= 220 Very High Fasting Specimen? Yes None 025 3:17 PM EDT We Blood VENOUS BLOOD / Unknown Venipuncture / Unknown 09/11/2024 11:17 AM EDT 09/11/2024 11:17 AM EDT us Patsy Hair MD CHEMISTRY ORDERABLES Final Res ult Performing Organization Address City/[facility]/ZIP Co de Phone Number We [address] [facility] , [place] [address] * (ABNORMAL) COMPREHENSIVE METABOLIC PANEL (09/11/2024 11:17 AM EDT) Sodium 142 136 - 145 mmol/L 09/11/2024 3:17 PM EDT [facility] Potassium 3.1(L) 3.5 - 5.0 mmol/L 09/11/2024 3:17 PM EDT [facility] Chloride 103 98 - 107 mmol/L 09/11/2024 3:17 PM EDT [facility] Total CO2 28 22 - 29 mmol/L 09/11/2024 3:17 PM EDT [facility] Anion Gap 11 7 - 16 mmol/L 09/11/2024 3:17 PM EDT [facility] Calcium 9.2 8.8 - 10.4 mg/dL 09/11/2024 3:17 PM EDT [facility] Glucose Lvl 123(H) 70 - 99 mg/dL 09/11/2024 3:17 PM EDT [facility] BUN 10 8 - 23 mg/dL 09/11/2024 3:17 PM EDT [facility] Creatinine 1.37(H) 0.51 - 1.30 mg/dL 09/11/2024 3:17 PM EDT [facility] Albumin 3.9 3.2 - 4.6 gm/dL 09/11/2024 3:17 PM EDT [facility] Total Protein 7.1 6.4 - 8.3 gm/dL 09/11/2024 3:17 PM EDT [facility] Bili Total 0.4 0.2 - 1.3 mg/dL 09/11/2024 3:17 PM EDT [facility] ALT 11 <=41 U/L 09/11/2024 3:17 PM EDT [facility] AST 24 <=40 U/L 09/11/2024 3:17 PM EDT [facility] Alk Phos 73 36 - 123 U/L 09/11/2024 3:17 PM EDT [facility] eGFR (CKD-EPIcr 2020) 44(L) >=60 mL/min/1.7 3 m2 09/11/2024 3:17 PM EDT [facility] Comment:Estimated GFR was ca lculated using the CKD-EPIcr (2020) equation refit without race. The equation is recommended by the National Kidney [employer] - [place] [employer] Neph[employer] Task Force. Blood VENOUS BLOOD / Unknown Venipuncture / Unknown 09/11/2024 11:17 AM EDT 09/11/2024 11:17 AM EDT us Patsy Hair MD CHEMISTRY ORDERABLES Final Res ult [facility] [address] [facility] , [place] [address] * (ABNORMAL) CBC WITH DIFF (09/11/2024 11:17 AM EDT) WBC 7.6 3.7 - 10.3 x10(3)/mcL 09/11/2024 2:35 PM EDT [facility] RBC 4.99 3.90 - 5.20 x10(6)/mcL 09/11/2024 2:35 PM EDT [facility] Hgb 15.2 11.2 - 15.7 g/dL 09/11/2024 2:35 PM EDT [facility] Hct 46.9(H) 34.0 - 45.0 % 09/11/2024 2:35 PM EDT [facility] MCV 94.0 80.0 - 100.0 fL 09/11/2024 2:35 PM EDT [facility] MCH 30.5 26.0 - 34.0 pg 09/11/2024 2:35 PM EDT [facility] MCHC 32.4 30.7 - 35.5 g/dL 09/11/2024 2:35 PM EDT [facility] RDW 14.4 <=14.9 % 09/11/2024 2:35 PM EDT [facility] Platelet 253 155 - 369 x10(3)/mcL 09/11/2024 2:35 PM EDT [facility] MPV 13.0(H) 8.8 - 12.5 fL 09/11/2024 2:35 PM EDT [facility] Neut Percent 53.4 % 09/11/2024 2:35 PM EDT [facility] Comment:Neutrophils equals s egs plus bands Imm Gran% 0.3 % 09/11/2024 2:35 PM EDT [facility] Comment:Automated count of m etamyelocytes, myelocytes and promyelocytes. Lymph Percent 36.4 % 09/11/2024 2:35 PM EDT [facility] [place] Percent 6.2 % 09/11/2024 2:35 PM EDT [facility] Eos Percent 3.2 % 09/11/2024 2:35 PM EDT [facility] Baso Percent 0.5 % 09/11/2024 2:35 PM EDT [facility] Neut # 4.1 1.6 - 6.1 x10(3)/mcL 09/11/2024 2:35 PM EDT [facility] Comment:Neutrophils equals s egs plus bands IMMGRAN# 0.0 0.0 - 0.1 x10(3)/mcL 09/11/2024 2:35 PM EDT [facility] Comment:Automated count of m etamyelocytes, myelocytes and promyelocytes. An absolute IG <0.1 is reported as 0.0. Lymph # 2.8 1.2 - 3.9 x10(3)/mcL 09/11/2024 2:35 PM EDT [facility] [place] # 0.5 0.3 - 0.9 x10(3)/mcL 09/11/2024 2:35 PM EDT [facility] Eos# 0.2 0.0 - 0.5 x10(3)/mcL 09/11/2024 2:35 PM EDT [facility] Baso # 0.0 0.0 - 0.1 x10(3)/mcL 09/11/2024 2:35 PM EDT [facility] Blood VENOUS BLOOD / Unknown Venipuncture / Unknown 09/11/2024 11:17 AM EDT 09/11/2024 11:17 AM EDT us Patsy Hair MD HEMATOLOGY ORDERABLES Final Re sult [facility] [address] [facility] , [address] [place] [id number] documented in this encounter Visit Diagnoses Diagnosis Diverticulitis of large intestine without perforation or abscess without bleeding- Primary Diverticulitis of colon (without mention of hemorrhage) Rheumatoid arthritis, involving unspecified site, unspecified whether rheumatoid factor present (HCC) Vitamin B 12 deficiency Other B-complex deficiencies Gastroesophageal reflux disease without esophagitis Esophageal reflux Immunocompromised Unspecified immunity deficiency Atherosclerosis of hopi artery of both lower extremities with intermittent claudication Atherosclerosis of hopi arteries of the extremities with intermittent claudication PAD (peripheral artery disease) Unspecified disorders of arteries and arterioles Stage 3b chronic kidney disease (HCC) Wheeze Wheezing COPD with acute exacerbation (HCC) Obstructive chronic bronchitis with exacerbation Generalized anxiety disorder Recurrent major depression resistant to treatment Major depressive disorder, recurrent episode, unspecified Generalized abdominal pain Abdominal pain, generalized Migraine without aura and without status migrainosus, not intractable Migraine without aura, without mention of intractable migraine without mention of status migrainosus Peripheral edema Edema Ventral incisional hernia without obstruction or gangrene Coronary artery calcification seen on CT scan documented in this encounter Administered Medications Inactive Administered Medications - up to 1 most recent administrations Medication Order MAR Action Action Date Dose Rate Site ketorolac (TORADOL) injection 60 mg 60 mg, Intramuscular, ONCE, 1 dose, On Mon09/11/24 at 1130, For IM Administration: Give undiluted, slowly and deeply into the muscle., Dx: 1. Rheumatoid arthritis, involving unspecified site, unspecified whether rheumatoid factor present (HCC)Indications:Rheumat oid arthritis, involving unspecified site, unspecified whether rheumatoid factor present (HCC) Given 09/11/2024 11:23 AM EDT 60 mg Left Upper Outer Quadrant methylPREDNISolone acetate (DEPO-Medrol) injection 120 mg 120 mg, Intramuscular, ONCE, 1 dose, On Mon09/11/24 at 1130, Dx: 1. Rheumatoid arthritis, involving unspecified site, unspecified whether rheumatoid factor present (HCC)Indications:Rheumat oid arthritis, involving unspecified site, unspecified whether rheumatoid factor present (HCC) Given 09/11/2024 11:24 AM EDT 120 mg Left Upper Outer Quadrant documented in this encounter Discontinued Medications Medication Sig Discontinue Reason Start Date End Da te fUROsemide (LASIX) 20 mg Oral TabletIndications:Perip heral edema TAKE 1 TABLET BY MOUTH ONCE A DAY NEEDED FOR SWELLING Reorder 10/11/2023 09/11/2024 atorvastatin (LIPITOR) 40 mg Oral Tablet Take 1 Tablet by mouth daily. Reorder 05/15/2024 09/11/2024 ANORO ELLIPTA 62.5-25 mcg/actuation Inhl Disk with Device Inhale 1 Puff into the lungs daily. Reorder 05/13/2024 09/11/2024 alendronate (FOSAMAX) 70 mg Oral Tablet Take 1 Tablet by mouth once a week. Reorder 06/05/2024 09/11/2024 cariprazine (VRAYLAR) 1.5 mg Oral CapsuleIndications:Gene ralized anxiety disorder,Recurrent major depression resistant to treatment Take 1 Capsule by mouth daily. Reorder 06/05/2024 09/11/2024 clopidogreL (PLAVIX) 75 mg Oral Tablet Take 1 Tablet by mouth daily. Reorder 06/05/2024 09/11/2024 doxepin (SINEQUAN) 10 mg Oral Capsule Take 1 Capsule by mouth nightly. Reorder 06/05/2024 09/11/2024 escitalopram oxalate (LEXAPRO) 20 mg Oral TabletIndications:Gener alized anxiety disorder Take 1 Tablet by mouth daily. Reorder 06/05/2024 09/11/2024 famotidine (PEPCID) 40 mg Oral TabletIndications:Gener alized abdominal pain Take 1 Tablet by mouth every evening. Reorder 06/05/2024 09/11/2024 omeprazole (PRILOSEC) 40 mg Oral Capsule, Delayed Release(E.C.) TAKE 1 CAPSULE BY MOUTH ONCE A DAY Reorder 06/05/2024 09/11/2024 DULoxetine (CYMBALTA) 60 mg Oral Capsule, Delayed Release(E.C.)Indication s:Generalized anxiety disorder,Recurrent major depression resistant to treatment Take 2 Capsules by mouth daily. Reorder 06/05/2024 09/11/2024 rimegepant (NURTEC ODT) 75 mg Oral Tablet, Rapid DissolveIndications:Rodney kevyn without aura and without status migrainosus, not intractable DISSOLVE 1 TABLET ON THE TONGUE EVERY 48 HOURS ONLY NEEDED FOR MIGRAINE Reorder 06/05/2024 09/11/2024 vzgycmnsyr-lqakdsmj-tko moterol (BREZTRI AEROSPHERE) 160-9-4.8 mcg/actuation Inhl HFA Aerosol InhalerIndications:COPD with acute exacerbation (HCC) Inhale 2 Puffs into the lungs 2 times daily. Reorder 07/02/2024 09/11/2024 albuterol (PROVENTIL HFA;VENTOLIN HFA) 90 mcg/actuation Inhl HFA Aerosol InhalerIndications:Whee ze INHALE 2 PUFFS BY MOUTH EVERY 4 HOURS NEEDED FOR WHEEZING Reorder 08/13/2024 09/11/2024 XARELTO 2.5 mg Oral Tablet TAKE ONE TABLET BY MOUTH 2 TIMES A DAY Reorder 08/22/2024 09/11/2024 cyclobenzaprine (FLEXERIL) 10 mg Oral Tablet Take 1 Tablet by mouth every 8 hours as needed for Muscle spasms for up to 30 days. Reorder 08/23/2024 09/11/2024 gabapentin (NEURONTIN) 800 mg Oral TabletIndications:Rheum atoid arthritis, involving unspecified site, unspecified whether rheumatoid factor present ([facility]),Vitamin B 12 deficiency,Gastroesopha geal reflux disease without esophagitis,Immunocompr omised,Atherosclerosis of hopi artery of both lower extremities with intermittent claudication,PAD (peripheral artery disease),Stage 3b chronic kidney disease (HCC) TAKE 1 TABLET BY MOUTH EVERY EVENING, MAY TAKE ADDITIONAL 1/2 TABLET EVERY MORNING AND EVERY AFTERNOON NEEDED Reorder 09/02/2024 09/11/2024 documented as of this encounter Care Teams Associate Director Of Biostatistics Relationship Specialty Start Date End Date Patsy Hair MD [address] [place] [address] PCP - General Family Medicine 07/19/13 Crystal Osborne MD [address] [facility] [address] [place] [address] Internal Medicine-Nephrology 12/06/23 documented as of this encounter
--- OUTSIDE RECORDS SUMMARY | 2024-09-11 10:45 | XMS_ITS | Encounter Summary ---
Author Organization [place] [address] Care Team Providers Care Rn Gynecology Name Role Phone Patsy Hair MD Primary Care Provider [phone] Crystal Osborne MD Unavailable [phone] Reason for Referral * Consultation (Routine) - Authorization Not Needed Specialty Diagnoses / Procedures Referred By Contac t Referred To Contact Cardiology Diagnoses Atherosclerosis of [place] artery of both lower extremities with intermittent claudication PAD (peripheral artery disease) Coronary artery calcification seen on CT scan Procedures [place] OFFICE/OUTPATIENT NEW MODERATE MDM 45 MINUTES Patsy Hair MD [address] [place] [address] Phone: tel: fax: Chidi Enriquez MD [address] [place] [address] Phone: tel: fax: Referral ID Status Reason Start Date Expiration Date Visits Requested Visits Authorized [id number] Authorization Not Needed 09/11/2024 09/11/2025 99 99 Reason for Visit * Reason Comments Diarrhea Emesis Arthritis Medication Refill Encounter Details Date Type Department Care Team (Late st Contact Info) Description 09/11/2024 10:45 AM EDT Office Visit [facility] [address] [place] [id number] Patsy Hair MD [address] [place] [address] Diverticulitis of large intestine without perforation or abscess without bleeding (Primary Dx); Rheumatoid arthritis, involving unspecified site, unspecified whether rheumatoid factor present (HCC); Vitamin B 12 deficiency; Gastroesophageal reflux disease without esophagitis; Immunocompromised; Atherosclerosis of guid[place] artery of both lower extremities with intermittent [...] reflux disease without esophagitis,Immuno compromised,Athero sclerosis of guidivil[place] artery of both lower extremities with intermittent [...] with a surgeon, preferably Dr. Miner in [facility]. - Will inform the office if a surgeon is found in [facility]. - Incisional hernia likely related to previous colonoscopy. 3. Coronary artery disease. 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 - Referral to Dr. Enriquez at the [facility] for cardiac evaluation. - Previously managed by [...] VITAMIN D 25 HYDROXY; Future Atherosclerosis of guid[place] artery of both lower extremities with intermittent [...] COPD with acute exacerbation (HCC) (Chronic) - dyovfopsct-fntbuptw-ekljqpztsb (BREZTRI AEROSPHERE) 160-9-4.8 mcg/actuation Inhl HFA Aerosol [...] days. She considered seeking emergency care in [facility] but decided against it. She is [...] legs. She does not currently see a member of the legislative council and is interested in finding one in [facility] or [place]. She has a ventral hernia in her abdomen that is causing discomfort. She is interested in having it repaired if possible. She wonders if it could be related to a previous colonoscopy. She has an appointment with her housecleaner tomorrow. PAST SURGICAL HISTORY: Colonoscopy Review of [...] Gran% 0.3 % Lymph Percent 36.4 % Ellis Percent 6.2 % Eos Percent 3.2 % Baso Percent 0.5 % Neut # 4.1 1.6 - 6.1 x10(3)/mcL IMMGRAN# 0.0 0.0 - 0.1 x10(3)/mcL Lymph # 2.8 1.2 - 3.9 x10(3)/mcL Ellis # 0.5 0.3 - 0.9 x10(3)/mcL Eos# [...] The provider educated the patient (or legal termite control representative) on the use of the ambient listening artificial intelligence tool, EGT. They were informed that this AI tool [...] of such information, the patient (or legal termite control representative), and each individual in attendance with the patient, verbally consented to the use of the AI tool. documented in this encounter Plan of Treatment Upcoming Encounters Date Type Department Care Team (Late st Contact Info) Description 10/30/2024 9:40 AM EDT Office Visit [facility] [address] [place] [address] Tiago Franz MD [address] [place], [place] [id number] 01/20/2025 3:15 PM EST Office Visit [facility] Nephrology [address] [place] [address] Crystal Osborne MD [address] [facility] [address] [place] [address] 09/25/2025 10:00 AM EDT Appointment [facility] [address] [facility] [address] [place] [address] JuneAmaris APRN [address] [place] [address] [address] [place], [place] [id number] 09/25/2025 11:00 AM EDT Office Visit [facility] [address] [place] [address] [address] [place] [address] JuneAmaris APRN [address] [place] [address] [address] [place], [place] [id number] Scheduled Referrals Name Type Priority Associated Diagnoses Orde r Schedule AMB REFERRAL TO CARDIOLOGY Outpatient Referral Routine Atherosclerosis of guid[place] artery of both lower extremities with intermittent [...] reflux disease without esophagitis Immunocompromised Atherosclerosis of [place] artery of both lower extremities with intermittent [...] reflux disease without esophagitis Immunocompromised Atherosclerosis of guid[place] artery of both lower extremities with intermittent [...] reflux disease without esophagitis Immunocompromised Atherosclerosis of guid[place] artery of both lower extremities with intermittent [...] reflux disease without esophagitis Immunocompromised Atherosclerosis of guid[place] artery of both lower extremities with intermittent [...] reflux disease without esophagitis Immunocompromised Atherosclerosis of guid[place] artery of both lower extremities with intermittent [...] reflux disease without esophagitis Immunocompromised Atherosclerosis of guid[place] artery of both lower extremities with intermittent [...] - 150.0 ng/mL 09/11/2024 5:04 PM EDT [facility] Comment: Preferred: >= 30 ng/mL Insufficient: 21-29 [...] ORDERABLES Final Res ult Performing Organization Address [facility] Phone Number [facility] [employer], [place] [address] * (ABNORMAL) VITAMIN B12/ FOLIC ACID (09/11/2024 11:17 AM EDT) Vitamin B12 >1,600(H) 232 - 1,245 pg/mL 09/11/2024 5:04 PM EDT [facility] Folate >16.00 >=4.80 ng/mL 09/11/2024 5:04 PM EDT [facility] 2 Minutes Blood VENOUS BLOOD / Unknown Venipuncture / Unknown 09/11/2024 11:17 AM EDT 09/11/2024 11:17 AM EDT Narrative [facility] 2 Minutes - 09/11/2024 5:04 PM EDT Ingestion of eh doses of biotin (>5 mg/day) taken within 8 hours of drawing blood sample can interfere with this immunoassay test. us Patsy Hair MD CHEMISTRY ORDERABLES Final Res ult Performing Organization Address [facility] Phone Number [facility] [employer] [address] * TSH REFLEX TO FT4 (09/11/2024 11:17 AM EDT) TSH Reflex 1.730 0.270 - 4.200 mcIU/mL 09/11/2024 3:17 PM EDT [facility] 2 Minutes Blood VENOUS BLOOD / Unknown Venipuncture / Unknown 09/11/2024 11:17 AM EDT 09/11/2024 11:17 AM EDT Narrative [facility] 2 Minutes - 09/11/2024 3:17 PM EDT Ingestion of eh doses of biotin (>5 mg/day) taken within 8 hours of drawing blood sample can interfere with this immunoassay test. us Patsy Hair MD CHEMISTRY ORDERABLES Final Res ult [facility] [address] [facility] , [place] [address] * LIPID SCREEN (09/11/2024 11:17 AM EDT) Cholesterol 189 <200 mg/dL 09/11/2024 3:17 PM EDT [facility] Comment: < 200 Desirable 200 - 239 Borderline High >= 240 High Triglyceride 93 <150 mg/dL 09/11/2024 3:17 PM EDT [facility] Comment: < 150 Normal 150 - 199 Borderline High 200 - 499 High >= 500 Very High HDL 86 >=40 mg/dL 09/11/2024 3:17 PM EDT [facility] Comment: > 60 Optimal 40 - 60 Acceptable < 40 Low LDL Calculated 87 <100 mg/dL 09/11/2024 3:17 PM EDT [facility] Comment: < 100 Optimal 100 - 129 Near or above optimal 130 - 159 Borderline High 160 - 189 High >= 190 Very High The National Institutes of Health (NIH) equation is used for all lipid panels that report calculated LDL (LDL-C). Non-HDL-C Calculated 103 <=129 mg/dL 09/11/2024 3:17 PM EDT [facility] Comment: <130 Desirable 130-159 Above Desirable 160-189 Borderline High 190-219 High >= 220 Very High Fasting Specimen? Yes None 025 3:17 PM EDT [facility] Blood VENOUS BLOOD / Unknown Venipuncture / Unknown 09/11/2024 11:17 AM EDT 09/11/2024 11:17 AM EDT us Patsy Hair MD CHEMISTRY ORDERABLES Final Res ult Performing Organization Address City/[facility]/ZIP Co de Phone Number [facility] [address] [facility] , [place] [address] * (ABNORMAL) COMPREHENSIVE METABOLIC PANEL [...] recommended by the National Kidney Foundation - [place] [employer] of Nephrology Task Force. Blood VENOUS BLOOD / Unknown Venipuncture / Unknown 09/11/2024 11:17 AM EDT 09/11/2024 11:17 AM EDT us Patsy Hair MD CHEMISTRY ORDERABLES Final Res ult [facility] [address] [facility] , [place] [address] * (ABNORMAL) CBC WITH DIFF (09/11/2024 11:17 [...] 09/11/2024 2:35 PM EDT [facility] Comment:Automated count of m etamyelocytes, myelocytes and promyelocytes. Lymph Percent 36.4 % 09/11/2024 2:35 PM EDT [facility] Ellis Percent 6.2 % 09/11/2024 2:35 PM EDT [facility] Eos Percent 3.2 % 09/11/2024 2:35 PM EDT [facility] Baso Percent 0.5 % 09/11/2024 2:35 PM EDT [facility] Neut # 4.1 1.6 - 6.1 x10(3)/mcL 09/11/2024 2:35 PM EDT [facility] Comment:Neutrophils equals s egs plus bands IMMGRAN# 0.0 0.0 - 0.1 x10(3)/mcL 09/11/2024 2:35 PM EDT [facility] Comment:Automated count of m etamyelocytes, myelocytes and promyelocytes. An absolute IG <0.1 is reported as 0.0. Lymph # 2.8 1.2 - 3.9 x10(3)/mcL 09/11/2024 2:35 PM EDT [facility] Ellis # 0.5 0.3 - 0.9 x10(3)/mcL 09/11/2024 2:35 PM EDT [facility] Eos# 0.2 0.0 - 0.5 x10(3)/mcL 09/11/2024 2:35 PM EDT [facility] Baso # 0.0 0.0 - 0.1 x10(3)/mcL 09/11/2024 2:35 PM EDT [facility] Blood VENOUS BLOOD / Unknown Venipuncture / Unknown 09/11/2024 11:17 AM EDT 09/11/2024 11:17 AM EDT us Patsy Hair MD HEMATOLOGY ORDERABLES Final Re sult [facility] [address] [facility] , [address] [place] [id number] documented in this encounter Visit Diagnoses Diagnosis Diverticulitis of large intestine without perforation or abscess without bleeding- Primary Diverticulitis of colon (without mention of hemorrhage) Rheumatoid arthritis, involving unspecified site, unspecified whether rheumatoid factor present (HCC) Vitamin B 12 deficiency Other B-complex deficiencies Gastroesophageal reflux disease without esophagitis Esophageal reflux Immunocompromised Unspecified immunity deficiency Atherosclerosis of guid[place] artery of both lower extremities with intermittent claudication Atherosclerosis of [place] arteries of the extremities with intermittent claudication [...] ONLY NEEDED FOR MIGRAINE Reorder 06/05/2024 09/11/2024 rwlerhyugn-xnmggslx-sgj moterol (BREZTRI AEROSPHERE) 160-9-4.8 mcg/actuation Inhl HFA [...] unspecified site, unspecified whether rheumatoid factor present ([facility]),Vitamin B 12 deficiency,Gastroesopha geal reflux disease without esophagitis,Immunocompr omised,Atherosclerosis of [place] artery of both lower extremities with intermittent claudication,PAD (peripheral artery disease),Stage 3b chronic kidney disease (HCC) TAKE 1 TABLET BY MOUTH EVERY EVENING, MAY TAKE ADDITIONAL 1/2 TABLET EVERY MORNING AND EVERY AFTERNOON NEEDED Reorder 09/02/2024 09/11/2024 documented as of this encounter Care Teams Rn Gynecology Relationship Specialty Start Date End Date Patsy Hair MD [address] [place] [address] PCP - General Family Medicine 07/19/13 Crystal Osborne MD [address] [facility] [address] [place] [address] Internal Medicine-Nephrology 12/06/23 documented as of this encounter
--- OUTSIDE RECORDS SUMMARY | 2024-09-20 08:45 | XMS_ITS | Encounter Summary ---
Author Organization [place] [address] Care Team Providers Care Revolving Field Assembler Name Role Phone Patsy Hair MD Primary Care Provider Crystal Osborne MD Unavailable [phone] Reason for Visit * Reason Comments Lab Orders Encounter Details Date Type Department Care Team (Latest Contact Info) Description 09/20/2024 8:45 AM EDT Clinical Support [facility] [address] [place] [address] Shani Jimenez MA Decreased potassium in the blood Social History Tobacco Use Types Packs/Day Years [...] Winnie Pinto RMA documented in this encounter Plan of Treatment Upcoming Encounters Date Type Department Care Team (Late st Contact Info) Description 10/30/2024 9:40 AM EDT Office Visit [facility] [place] [address] [place] [address] Tiago Franz MD [address] [facility] [place] [id number] 01/20/2025 3:15 PM EST Office Visit [facility] Nephrology [address]ep [address] [place] [address] Crystal Osborne MD [address] [facility] [address] [place] [address] 09/25/2025 10:00 AM EDT Appointment [facility] VASCULAR [address] [facility] [address] [place] [address] Amaris Sommer APRN [address] [facility] [address] [place] [address] 09/25/2025 11:00 AM EDT Office Visit [facility] [address] [facility] [address] [place] [address] Amaris Sommer APRN [address] [place] [address] [address] [place] [address] documented as of this encounter Goals Goal Patient Goal Type Associated Problems Recent Progress Patient-Stated? Author Eat better, exercise, reach an ideal body weight General No Vanna Rooney RMA Stay Tobacco Free Lifestyle No Vanna Rooney RMA documented as of this encounter Procedures Procedure Name Priority Date/Time Associated Diagnosis Comments COMPREHENSIVE METABOLIC PANEL Routine 09/20/2024 8:42 AM EDT Decreased potassium in the blood documented in this encounter Results * (ABNORMAL) COMPREHENSIVE METABOLIC PANEL (09/20/2024 8:42 AM EDT) Sodium 143 136 - 145 mmol/L 09/20/2024 4:30 PM EDT [facility] Potassium 4.1 3.5 - 5.0 mmol/L 09/20/2024 4:30 PM EDT [facility] Chloride 109(H) 98 - 107 mmol/L 09/20/2024 4:30 PM EDT [facility] Total CO2 22 22 - 29 mmol/L 09/20/2024 4:30 PM EDT [facility] Anion Gap 12 7 - 16 mmol/L 09/20/2024 4:30 PM EDT [facility] Calcium 8.9 8.8 - 10.4 mg/dL 09/20/2024 4:30 PM EDT [facility] Glucose Lvl 98 70 - 99 mg/dL 09/20/2024 4:30 PM EDT [facility] BUN 12 8 - 23 mg/dL 09/20/2024 4:30 PM EDT [facility] Creatinine 1.38(H) 0.51 - 1.30 mg/dL 09/20/2024 4:30 PM EDT [facility] Albumin 3.9 3.2 - 4.6 gm/dL 09/20/2024 4:30 PM EDT [facility] Total Protein 6.6 6.4 - 8.3 gm/dL 09/20/2024 4:30 PM EDT [facility] Bili Total 0.3 0.2 - 1.3 mg/dL 09/20/2024 4:30 PM EDT [facility] ALT 12 <=41 U/L 09/20/2024 4:30 PM EDT [facility] AST 21 <=40 U/L 09/20/2024 4:30 PM EDT [facility] Alk Phos 59 36 - 123 U/L 09/20/2024 4:30 PM EDT [facility] eGFR (CKD-EPIcr 2020) 43(L) >=60 mL/min/1.7 3 m2 09/20/2024 4:30 PM EDT [facility] Comment:Estimated GFR was ca lculated using the CKD-EPIcr (2020) equation refit without race. The equation is recommended by the National Kidney Foundation - [place] [employer] of Nephrology Task Force. Blood VENOUS BLOOD / Unknown Venipuncture / Unknown 09/20/2024 8:42 AM EDT 09/20/2024 8:42 AM EDT us Patsy Hair MD CHEMISTRY ORDERABLES Final Res ult [facility], [facility] [address] [facility], [place] [address] documented in this encounter Visit Diagnoses Diagnosis Decreased potassium in the blood Hypopotassemia documented in this encounter Care Teams Revolving Field Assembler Relationship Specialty Start Date End Date Patsy Hair MD [address] [place] [address] PCP - General Family Medicine 07/19/13 Crystal Osborne MD [address] [place] [address] Internal Medicine-Nephrology 12/06/23 documented as of this encounter
--- OUTSIDE RECORDS SUMMARY | 2024-09-20 08:45 | XMS_ITS | Encounter Summary ---
Author Organization [place] [address] Care Team Providers Care Naturalist Name Role Phone Patsy Hair MD Primary Care Provider [phone] Crystal Osborne MD Unavailable [phone] Reason for Visit * Reason Comments Lab Orders Encounter Details Date Type Department Care Team (Latest Contact Info) Description 09/20/2024 8:45 AM EDT Clinical Support [facility] [address] [place] [address] Shani Jimenez MA Decreased potassium [...] 9:40 AM EDT Office Visit [facility] [place] [address] [place] [address] Tiago Franz MD [address] [facility] [place] [id number] 01/20/2025 3:15 PM EST [facility] Am[address]ep [address] [place] [address] Crystal Osborne MD [address] [facility] [address] [place] [address] 09/25/2025 10:00 AM EDT Appointment [facility] VASCULAR [address] [facility] [address] [place] [address] Amaris Sommer APRN [address] [facility] [address] [place] [address] 09/25/2025 11:00 AM EDT Office Visit [facility] [address] [facility] [address] [place] [address] Amaris Sommer APRN [address] [place] [address] [address] [place] [address] documented as of this encounter [...] 09/20/2024 4:30 PM EDT [facility] Bili Total 0.3 0.2 - 1.3 mg/dL 09/20/2024 4:30 PM EDT [facility] ALT 12 <=41 U/L 09/20/2024 4:30 PM EDT [facility] AST 21 <=40 U/L 09/20/2024 4:30 PM EDT [facility] Alk Phos 59 36 - 123 U/L 09/20/2024 4:30 PM EDT [facility] eGFR (CKD-EPIcr 2020) 43(L) >=60 mL/min/1.7 3 m2 09/20/2024 4:30 PM EDT [facility] Comment:Estimated GFR was ca lculated using the CKD-EPIcr (2020) equation refit without race. The equation is recommended by the National Kidney Foundation - [place] Society of Nephrology Task Force. Blood VENOUS BLOOD / Unknown Venipuncture / Unknown 09/20/2024 8:42 AM EDT 09/20/2024 8:42 AM EDT us Patsy Hair MD CHEMISTRY ORDERABLES Final Res ult [facility], [facility] [address] [facility], [place] [address] documented in this encounter Visit Diagnoses Diagnosis Decreased potassium in the blood Hypopotassemia documented in this encounter Care Teams Naturalist Relationship Specialty Start Date End Date Patsy Hair MD [address] [place] [address] PCP - General Family Medicine 07/19/13 Crystal Osborne MD [address] [place] [address] Internal Medicine-Nephrology 12/06/23 documented as of this encounter
[2024-10-04] VITALS (15 sets, daily range): BP systolic 110–154; BP diastolic 74–92; PULSE 91–116; RESP 14–25; TEMP 36.6–37.6; O2SAT 90–97; BMI 23.6; BMI 24.3
--- NOTE | 2024-10-04 12:12 | ECG_ITS ---
APPROVED REPORT Exam: Resting ECG HR:109 bpm ECG Measurements Heart Rate 109 AXES ME 126 P 58 QRSd 69 QRS 74 QT 335 T 72 QTc 399 Conclusion SINUS TACHYCARDIA ABNORMAL RHYTHM ECG No STEMI Electronically signed by : DIANA PRITCHARD, 10/05/2024 07:42:28
--- OUTSIDE RECORDS SUMMARY | 2024-10-04 12:16 | XMS_ITS | Encounter Summary ---
Author Organization [place] [address] Care Team Providers Care Fur Cutting Machine Operator Name Role Phone Patsy Hair MD Primary Care Provider [phone] Crystal Osborne MD Unavailable [phone] Reason for Referral * MRI/CAT Scan (Routine) - Pending Review Specialty Diagnoses / Procedures Referred By Contac t Referred To Contact Radiology Diagnoses Screening for malignant neoplasm of respiratory organ Personal history of tobacco use, presenting hazards to health Procedures CT LUNG CANCER SCREENING LOW DOSE Patsy Hair MD [address] [place] [address] Phone: tel: fax: Referral ID Status Reason Start Date Expiration Date V isits Requested Visits Authorized [id number] Pending Review 08/30/2024 11/30/2025 1 1 Encounter Details Date Type Department Care Team (Late st Contact Info) Description 08/30/2024 Orders Only [facility] 100 [place] [address] Patsy Hair MD [address] [place] [address] Screening for malignant neoplasm of respiratory organ (Primary Dx); Personal history of tobacco use, presenting hazards to health Social History Tobacco Use Types Packs/Day Years [...] 9:40 AM EDT Office Visit [facility] [address] [address] Tiago Franz MD [address] [place] [address] [address], [place] [address] 01/20/2025 3:15 PM EST Office Visit [facility] Nephrology Amandeep [address] [place], [place] [phone] Crystal Osborne MD [address] [facility] [address] [place] [address] 09/25/2025 10:00 AM EDT Appointment [facility] VASCULAR [address] [place] [address] [address] [place] [address] [address] [place] [address] 09/25/2025 11:00 AM EDT Office Visit [facility] [address] [place] [address] [address] [place] [address] [address] [place], [place] [id number] Scheduled Orders Name Type Priority Associated Diagnoses Orde r Schedule CT LUNG CANCER SCREENING LOW DOSE Imaging Routine Screening for malignant neoplasm of respiratory organ Personal history of tobacco use, presenting hazards to health Expected: 08/31/2025, Expires: 11/30/2025 documented as of this encounter Goals Goal Patient Goal Type Associated Problems Recent Progress Patient-Stated? Author Eat better, exercise, reach an ideal body weight General No Vanna Rooney RMA Stay Tobacco Free Lifestyle No Vanna Rooney RMA documented as of this encounter Visit Diagnoses Diagnosis Screening for malignant neoplasm of respiratory organ- Primary Special screening for malignant neoplasm of the respiratory organs Personal history of tobacco use, presenting hazards to health documented in this encounter Care Teams Fur Cutting Machine Operator Relationship Specialty Start Date End Date Patsy Hair MD 100 [place], [place] [id number] PCP - General Family Medicine 07/19/13 Crystal Osborne MD [address] [place] [address] Internal Medicine-Nephrology 12/06/23 documented as of this encounter
--- OUTSIDE RECORDS SUMMARY | 2024-10-04 12:16 | XMS_ITS | Encounter Summary ---
Author Organization [place] [address] Care Team Providers Care Core Composer Feeder Name Role Phone Patsy Hair MD Primary Care Provider [phone] Crystal Osborne MD Unavailable [phone] Reason for Visit * Reason Comments Medication Refill Encounter Details Date Type Department Care Team (Late st Contact Info) Description 08/27/2024 Refill [facility] 100 [place] [address] Patsy Hair MD [address] [place], [place] [id number] Medication Refill Social History Tobacco Use Types Packs/Day Years [...] Date Author No 04/06/2024 9:40 AM Winnie Pitno RMA documented in this encounter Plan of Treatment Upcoming Encounters Date Type Department Care Team (Late st Contact Info) Description 10/30/2024 9:40 AM EDT Office Visit [facility] [place] 238 [place] [address] Tiago Franz MD [address] [facility] [address] 01/20/2025 3:15 PM EST Office Visit [facility] Nephrology Amandeep [address] [place] [address] Crystal Osborne MD [address] [facility] [address] [place] [address] 09/25/2025 10:00 AM EDT Appointment [facility] VASCULAR [address] [place] [address] Amaris Sommer APRN [address] [facility] [address] [place] [address] 09/25/2025 11:00 AM EDT Office Visit [facility] [address] [place] [address] [facility] APRN [address] [facility] [address] [place], [place] [id number] documented as of this encounter Goals Goal Patient Goal Type Associated Problems Recent Progress Patient-Stated? Author Eat better, exercise, reach an ideal body weight General No Vanna Rooney, RMAyaz Stay Tobacco Free Lifestyle No Vanna Rooney RMAyaz documented as of this encounter Visit Diagnoses Not on filedocumented in this encounter Care Teams Core Composer Feeder Relationship Specialty Start Date End Date Patsy Hair MD 100 [place], [place] [phone] PCP - General Family Medicine 07/19/13 [place] Osborne MD [address] [place] [address] [address] [place] [address] Internal Medicine-Nephrology 12/06/23 documented as of this encounter
--- OUTSIDE RECORDS SUMMARY | 2024-10-04 12:16 | XMS_ITS | Encounter Summary ---
Author Organization [facility] Address [address] [place] [address] Care Team Providers Care Opener Tender Name Role Phone Patsy Hair MD Primary Care Provider [phone] Crystal Osborne MD Unavailable [phone] Reason for Visit * Reason Onset Date Comments Results 09/03/2024 Encounter Details Date Type Department Care Team (Noelle Contact Info) Description 09/03/2024 Telephone [facility] ATTN: Appointments in this department are performed at various locations in the community on our Cardiovascular mobile health unit. You can look online to verify your site or call [phone] [address] Promise Marroquin, ESTHER Results Social History Tobacco Use Types Packs/Day Years [...] of Assessment Author No 04/06/2024 9:40 AM EST Winnie Miller RMA * Because of a physical, mental [...] Winnie Pinto RMA documented in this encounter Miscellaneous Notes * Telephone Encounter - Promise Marroquin RN - 09/03/2024 11:12 AM EDT Discussed results and recs of LCS with pt including the significant finding, they verbalized understanding. Pt plans to reach out to pcp for futher recs regarding significant finding. documented in this encounter Plan of Treatment Upcoming Encounters Date Type Department Care Team (Late st Contact Info) Description 10/30/2024 9:40 AM EDT Office Visit [facility] [place] 238 [place] [address] Tiago Franz MD [address] [place] [address] [place] [address] 01/20/2025 3:15 PM EST Office Visit [facility] Nephrology Amandeep [address] [place] [address] Crystal Osborne MD [address] [facility] [address] [place] [address] 09/25/2025 10:00 AM EDT Appointment [facility] VASCULAR 20 [facility] [address] [place] [address] Amaris Sommer [employer] [address] [place] [address] [address] [place] [address] 09/25/2025 11:00 AM EDT Office Visit [facility] 20 [facility] [address] [place] [address] Amaris Sommer [employer] [place], [place] [phone] documented as of this encounter Goals Goal Patient Goal Type Associated Problems Recent Progress Patient-Stated? Author Eat better, exercise, reach an ideal body weight General No Vanna Rooney, RMA Stay Tobacco Free Lifestyle No Vanna Rooney, RMA documented as of this encounter Visit Diagnoses Not on filedocumented in this encounter Care Teams Opener Tender Relationship Specialty Start Date End Date Patsy Hair MD [address] [place] [id number] PCP - General Family Medicine 07/19/13 [place] Osborne MD [address] [place] [address] Internal Medicine-Nephrology 12/06/23 documented as of this encounter
--- OUTSIDE RECORDS SUMMARY | 2024-10-04 12:16 | XMS_ITS | Encounter Summary ---
Author Organization [place] [address] Care Team Providers Care Packaging Inspector Name Role Phone Patsy Hair MD Primary Care Provider [phone] Crystal Osborne MD Unavailable [phone] Reason for Visit * Reason Onset Date Comments Symptoms (Only Use If Pt Pushes Back On Scheduli ng A Visit) 09/03/2024 Hernia Encounter Details Date Type Department Care Team (Late st Contact Info) Description 09/03/2024 Telephone [facility] 100 [place] [address] Patsy Hair MD [address] [place] [id number] Symptoms (Only Use If Pt Pushes Back On Scheduling A Visit) (Hernia) Social History Tobacco Use Types Packs/Day Years [...] Assessment Author No 04/06/2024 9:40 AM DOMO Miller Winniekavon Hurley ALESIA * Is the person blind or does he/she have serious difficulty seeing even when wearing glasses? Answer Date of Assessment Author No 04/06/2024 9:40 AM DOMO Miller Winniekavon Hurley RMA * Does this person have serious difficulty walking or climbing stairs? Answer Date of Assessment Author No 04/06/2024 9:40 AM DOMO MillerWinnie RMA * Does this person have difficulty dressing or bathing? Answer Date of Assessment Author No 04/06/2024 9:40 AM Salome Pintokavon Hurley RMA * Because of a physical, mental or emotional condition, does this person have difficulty doing errands alone such as visiting a doctor's office or shopping? Answer Date of Assessment Author No 04/06/2024 9:40 AM DOMO Miller Winniekavon Hurley ALESIA documented as of this encounter Mental Status * Because of a physical, mental or emotional condition, does this person have serious difficulty concentrating, remembering or making decisions? Answer Entry Date Author No 04/06/2024 9:40 AM Salome Pintokavon Hurley ALESIA documented in this encounter Miscellaneous Notes * Telephone Encounter - Flakito De La Torre RMA - 09/03/2024 5:00 PM EDT Left message informing Pt. Instructed to call back with which specialist she is needing. * Telephone Encounter - Patsy Hair MD - 09/03/2024 4:53 PM EDT Recommend gastroenterology or if she sees a visible bulge rec general surgery * Telephone Encounter - Lyssa Whitlock - 09/03/2024 11:15 AM EDT Select the most appropriate reason for this telephone message: Symptoms Call Who is reporting the symptoms: Patient What symptom(s) is the patient experiencing: Hernia in upper stomach that causes pain.Pt is lookingfor advice from her pcp in regards to what is best to do and if she should see a specialist. How long have symptoms been present: 2 year(s) ago Has the patient been seen for this:Yes Has the patient tried anything to relieve the symptoms and did it help: No If pain, what level on scale 1-10 (10 being the greatest): 7 Desired Outcome: Advice Pharmacy & Location: [facility] - [place] [address] - [address] [place] [address] [address] - [phone] [place] [address], [place] [address] SHANDA #: -- Return Method of Communication: Phone Call Was patient transferred to Nurse Triage for additional help? N/A Additional Information: N/A documented in this encounter Plan of Treatment Upcoming Encounters Date Type Department Care Team (Late st Contact Info) Description 10/30/2024 9:40 AM EDT Office Visit [facility] [place] 238 [place] [address] Tiago Franz MD [address] [place] [address] 01/20/2025 3:15 PM EST Office Visit [facility] Nephrology Amandeep 238 [place] [address] Crystal Osborne MD [address] [facility] [address] [place] [address] 09/25/2025 10:00 AM EDT Appointment [facility] VASCULAR [address] [place] [address] Drive [address] [place] [address] Amaris Somemr APRN [address] [place] [address] [address] [place] [address] 09/25/2025 11:00 AM EDT Office Visit [facility] [address] [place] [address] [address] [place] [address] [facility] APRN [address] [facility] [address] [place], [place] [id number] documented as of this encounter Goals Goal Patient Goal Type Associated Problems Recent Progress Patient-Stated? Author Eat better, exercise, reach an ideal body weight General No Vanna Rooney RMA Stay Tobacco Free Lifestyle No Vanna Rooney RMA documented as of this encounter Visit Diagnoses Not on filedocumented in this encounter Care Teams Packaging Inspector Relationship Specialty Start Date End Date Patsy Hair MD 100 [place], [place] [id number] PCP - General Family Medicine 07/19/13 [place] Osborne MD 0 [facility] [address] [place] [address] Internal Medicine-Nephrology 12/06/23 documented as of this encounter
--- OUTSIDE RECORDS SUMMARY | 2024-10-04 12:16 | XMS_ITS | Encounter Summary ---
Author Organization [place] [address] Care Team Providers Care Cleaning Staff Supervisor Name Role Phone Patsy Hair MD Primary Care Provider [phone] Crystal Osborne MD Unavailable [phone] Encounter Details Date Type Department Care Team (Late st Contact Info) Description 09/20/2024 Orders Only [facility] 100 [place] [address] Patsy Hair MD 100 [place] [address] Decreased potassium in the blood (Primary Dx) Social History Tobacco Use Types Packs/Day Years [...] 9:40 AM EDT Office Visit [facility] [place] 238 [place] [address] Tiago Franz MD [address] [place] [address] 01/20/2025 3:15 PM EST Office Visit [facility] Nephrology Amandeep 238 [place] [address] Crystal Osborne MD [address] [facility] [address] [place] [address] 09/25/2025 10:00 AM EDT Appointment [facility] [address] [facility] [address] [place] [address] Amaris Sommer APRN [address] [facility] [address] [address] 09/25/2025 11:00 AM EDT Office Visit [facility] [address] [facility] [address] [place] [address] Amaris Sommer APRN [address] [facility] [address] [place] [address] documented as of this encounter Goals Goal Patient Goal Type Associated Problems Recent Progress Patient-Stated? Author Eat better, exercise, reach an ideal body weight General No Vanna Rooney RMAyaz Stay Tobacco Free Lifestyle No Vanna Rooney RMAyaz documented as of this encounter Results * (ABNORMAL) COMPREHENSIVE METABOLIC [...] 4:30 PM EDT [facility] Bili Total 0.3 0.2 - 1.3 mg/dL 09/20/2024 4:30 PM EDT [facility] ALT 12 <=41 U/L 09/20/2024 4:30 PM EDT [facility] AST 21 <=40 U/L 09/20/2024 4:30 PM EDT [facility] Alk Phos 59 36 - 123 U/L 09/20/2024 4:30 PM EDT [facility] eGFR (CKD-EPIcr 2020) 43(L) >=60 mL/min/1.7 3 m2 09/20/2024 4:30 PM EDT [facility] Comment:Estimated GFR was ca lculated using the CKD-EPIcr (2020) equation refit without race. The equation is recommended by the National Kidney Foundation - [place] [employer] of Nephrology Task Force. Blood VENOUS BLOOD / Unknown Venipuncture / Unknown 09/20/2024 8:42 AM EDT 09/20/2024 8:42 AM EDT us Patsy Hair MD CHEMISTRY ORDERABLES Final Res ult [facility] [address] [facility], [address] [place] [id number] documented in this encounter Visit Diagnoses Diagnosis Decreased potassium in the blood- Primary Hypopotassemia documented in this encounter Care Teams Cleaning Staff Supervisor Relationship Specialty Start Date End Date Patsy Hair MD 100 [place] [address] PCP - General Family Medicine 07/19/13 Crystal Osborne MD [address] [facility] [address] [place] [address] Internal Medicine-Nephrology 12/06/23 documented as of this encounter
--- OUTSIDE RECORDS SUMMARY | 2024-10-04 12:16 | XMS_ITS | Encounter Summary ---
Author Organization [place] [address] Care Team Providers Care Choir Singer Name Role Phone Patsy Hair MD Primary Care Provider [phone] Crystal Osborne MD Unavailable Reason for Visit * Reason Onset Date Comments Relaying Information 09/24/2024 Case Manage ment Plan from [facility] faxed Encounter Details Date Type Department Care Team (Late st Contact Info) Description 09/24/2024 Telephone [facility] [address] [place] [address] Patsy Hair MD [address] [place] [address] Relaying Information (Case Management Plan from [facility] faxed) Social History Tobacco Use Types Packs/Day Years [...] Author No 04/06/2024 9:40 AM Winnie Pinto Mei, ALESIA * Is the person blind or does he/she have serious difficulty seeing even when wearing glasses? Answer Date of Assessment Author No 04/06/2024 9:40 AM Winnie Pinto, VALEA * Does this person have serious difficulty walking or climbing stairs? Answer Date of Assessment Author No 04/06/2024 9:40 AM Winnie Pinto Mei VALEA * Does this person have difficulty dressing or bathing? Answer Date of Assessment Author No 04/06/2024 9:40 AM Winnie Pinto MeiVALEA * Because of a physical, mental or emotional condition, does this person have difficulty doing errands alone such as visiting a doctor's office or shopping? Answer Date of Assessment Author No 04/06/2024 9:40 AM Winnie Pinto Mei ALESIA documented as of this encounter Mental Status * Because of a physical, mental or emotional condition, does this person have serious difficulty concentrating, remembering or making decisions? Answer Entry Date Author No 04/06/2024 9:40 AM Winnie Pinto Mei ALESIA documented in this encounter Miscellaneous Notes * Telephone Encounter - Promise Mccann - 09/24/2024 4:39 PM EDT Select the most appropriate reason for this telephone message: Relaying Information Relaying Information Who is Calling: Insurance Company/Law Office [facility]: Brigitte (include office company andcaller's name) What information is the caller relaying:Patient called [facility] Case Management reporting the following: - Using tobacco products (unsure of how much) - Limited mobility concerns (falls in the home) - Chronic Pain (over 8 medication for this) - Reported COPD - End Stage Renal Disease. [facility] is following up with PCP who participates in the case management program to develop a care plan for the patient. This care plan was faxed to the provider by the weapons electrical engineering officer yesterday. If this fax is returned, Brigitte does not need a return call back. Further follow-up needed? No Return Method of Communication:N/A Additional Information:N/A documented in this encounter Plan of Treatment Upcoming Encounters Date Type Department Care Team (Late st Contact Info) Description 10/30/2024 9:40 AM EDT Office Visit [facility] [place] [address] [place] [address] Tiago Franz MD [address] [facility] [address] [place] [id number] 01/20/2025 3:15 PM EST Office Visit [facility] Nephrology [address] [place] [address] Crystal Osborne MD 0 [facility] [address] [place] [address] 09/25/2025 10:00 AM EDT Appointment [facility] 20 [facility] [address] [place] [address] Amaris Sommer [address] [place] [address] 09/25/2025 11:00 AM EDT Office Visit [facility] [address] [facility] [address] [place] [address] [address]is [address] [place] [address] documented as of this encounter Goals Goal Patient Goal Type Associated Problems Recent Progress Patient-Stated? Author Eat better, exercise, reach an ideal body weight General No Vanna Rooney RMAyaz Stay Tobacco Free Lifestyle No Vanna Rooney RMA documented as of this encounter Visit Diagnoses Not on filedocumented in this encounter Care Teams Choir Singer Relationship Specialty Start Date End Date Patsy Hair MD [address] [place] [address] PCP - General Family Medicine 07/19/13 Crystal Osborne MD [address] [facility] [address] [place] [address] Internal Medicine-Nephrology 12/06/23 documented as of this encounter
--- OUTSIDE RECORDS SUMMARY | 2024-10-04 12:16 | XMS_ITS | Encounter Summary ---
Author Organization [place] [address] Care Team Providers Care Label Pinker Name Role Phone Patsy Hair MD Primary Care Provider Crystal Osborne MD Unavailable [phone] Reason for Visit * Reason Comments Medication Refill Encounter Details Date Type Department Care Team (Late st Contact Info) Description 09/02/2024 Refill [facility] [address] [place] [address] Patsy Hair MD 100 [place], [place] [id number] Medication Refill Social History Tobacco Use Types [...] Refills Last Filled Start Date End Date gabapentin (NEURONTIN) 800 mg Oral TabletIndications: Rheumatoid arthritis, involving unspecified site, unspecified whether rheumatoid factor present (HCC),Vitamin B 12 deficiency,Gastroe sophageal reflux disease without esophagitis,Immuno compromised,Athero sclerosis of navajo artery of both lower extremities with intermittent claudication,PAD (peripheral artery disease),Stage 3b chronic kidney disease (HCC) TAKE 1 TABLET BY MOUTH EVERY EVENING, MAY TAKE ADDITIONAL 1/2 TABLET EVERY MORNING AND EVERY AFTERNOON NEEDED 60 Tablet 09/02/2024 documented in this encounter Miscellaneous Notes * Telephone Encounter - Angel Crawford DO - 09/02/2024 11:39 AM EDT Med refilled * Telephone Encounter - Becca Dinh MA - 09/02/2024 11:26 AM EDT Last refill 08/02/24 [place] 06/05/24 documented in this encounter Plan of Treatment Upcoming Encounters Date Type Department Care Team (Late st Contact Info) Description 10/30/2024 9:40 AM EDT Office Visit [facility] [place] [address] [place] [address] Tiago Franz MD [address] [facility] [place], [place] [id number] 01/20/2025 3:15 PM EST Office Visit [facility] Nephrology Am[address] [place] [address] Crystal Osborne MD [address] [facility] [address] [place] [address] 09/25/2025 10:00 AM EDT Appointment [facility] 20 [facility] [address] [place] [address] Amaris Sommer APRN [address] [facility] [facility] [address] [place], [place] [id number] 09/25/2025 11:00 AM EDT Office Visit [facility] 20 [facility] [address] [place] [address] Amaris Sommer BOILERMAKER PIPE FITTER [address] [place] [address] [address] [place], [place] [id number] documented as of this encounter Goals Goal Patient Goal Type Associated Problems Recent Progress Patient-Stated? Author Eat better, exercise, reach an ideal body weight General No Vanna Rooney RMA Stay Tobacco Free Lifestyle No Vanna Rooney RMA documented as of this encounter Visit Diagnoses Diagnosis Rheumatoid arthritis, involving unspecified site, unspecified whether rheumatoid factor present ([facility]) Vitamin B 12 deficiency Other B-complex deficiencies Gastroesophageal reflux disease without esophagitis Esophageal reflux Immunocompromised Unspecified immunity deficiency Atherosclerosis of navajo artery of both lower extremities with intermittent claudication Atherosclerosis of navajo arteries of the extremities with intermittent claudication PAD (peripheral artery disease) Unspecified disorders of arteries and arterioles Stage 3b chronic kidney disease (HCC) documented in this encounter Discontinued Medications Medication Sig Discontinue Reason Start Date End Da te gabapentin (NEURONTIN) 800 mg Oral TabletIndications:Rheum atoid arthritis, involving unspecified site, unspecified whether rheumatoid factor present (HCC),Vitamin B 12 deficiency,Gastroesopha geal reflux disease without esophagitis,Immunocompr omised,Atherosclerosis of navajo artery of both lower extremities with intermittent claudication,PAD (peripheral artery disease),Stage 3b chronic kidney disease (HCC) TAKE 1 TABLET BY MOUTH EVERY EVENING, MAY TAKE ADDITIONAL 1/2 TABLET EVERY MORNING AND EVERY AFTERNOON NEEDED 08/02/2024 09/02/2024 documented as of this encounter Care Teams Label Pinker Relationship Specialty Start Date End Date Patsy Hair MD 100 [place] [address] PCP - General Family Medicine 07/19/13 Crystal Osborne MD [address] [place] [phone] Internal Medicine-Nephrology 12/06/23 documented as of this encounter
--- OUTSIDE RECORDS SUMMARY | 2024-10-04 12:16 | XMS_ITS | Encounter Summary ---
Author Organization [facility] [place] [address] Care Team Providers Care Machine Former Name Role Phone Patsy Hair MD Primary Care Provider [phone] Crystal Osborne MD Unavailable [phone] Encounter Details Date Type Department Care Team (Latest Contact Info) Description 08/22/2024 Travel Social History Tobacco Use Types Packs/Day Years [...] Assessment Author No 04/06/2024 9:40 AM EST Miller, Winnie Mei, RMA * Does this person have difficulty [...] 9:40 AM EDT Office Visit [facility] [place] [address] [place] [phone] Tiago Franz MD [address] [facility] [address] 01/20/2025 3:15 PM EST Office Visit [facility] Nephrology Amandeep [address] [place] [address] Crystal Osborne MD [address] [facility] [address] [place] [address] 09/25/2025 10:00 AM EDT Appointment [facility] [address] [place] [address] [address] [place] [address] Amaris Sommer APRN [address] [place] [address] [address] [place] [address] 09/25/2025 11:00 AM EDT Office Visit [facility] 20 [facility] [address] [place] [address] Amaris Sommer APRN [address] [place] [address] [address] [place] [address] documented as of this encounter Goals Goal Patient Goal Type Associated Problems Recent Progress Patient-Stated? Author Eat better, exercise, reach an ideal body weight General No Vanna Rooney RMA Stay Tobacco Free Lifestyle No Vanna Rooney RMA documented as of this encounter Visit Diagnoses Not on filedocumented in this encounter Care Teams Machine Former Relationship Specialty Start Date End Date Patsy Hair MD [address] [place] [id number] PCP - General Family Medicine 07/19/13 Crystal Osborne MD [address] [address] Internal Medicine-Nephrology 12/06/23 documented as of this encounter
--- OUTSIDE RECORDS SUMMARY | 2024-10-04 12:16 | XMS_ITS | Encounter Summary ---
Author Organization [place] [address] Care Team Providers Care Business Analytics Faculty Member Name Role Phone Patsy Hair MD Primary Care Provider [phone] Crystal Osborne MD Unavailable Reason for Visit * Reason Comments Medication Refill Encounter Details Date Type Department Care Team (Late st Contact Info) Description 08/22/2024 Refill [facility] 20 [facility] [address] [place] [address] Hill Santamaria MD 20 [facility] [address] [place] [address] Medication Refill Social History Tobacco Use Types [...] Refills Last Filled Start Date End Date XARELTO 2.5 mg Oral Tablet TAKE ONE TABLET BY MOUTH 2 TIMES A DAY 60 Tablet 5 08/22/2024 09/11/2024 documented in this encounter Plan of Treatment Upcoming Encounters Date Type Department Care Team (Late st Contact Info) Description 10/30/2024 9:40 AM EDT Office Visit [facility] [place] [address] [place] [address] iTago Franz MD 1 [place] [address] 01/20/2025 3:15 PM EST Office Visit [facility] Nephrology Amandeep [address] [place] [address] Crystal Osborne MD 830 [facility] [address] [place] [address] 09/25/2025 10:00 AM EDT Appointment [facility] 20 [facility] [address] [place] [address] June, Amaris Camacho LIVESTOCK FARMWORKER [address] [facility] [address] [place] [address] 09/25/2025 11:00 AM EDT Office Visit [facility] 20 [facility] [address] [place] [address] JuneAmaris APRN [address] [facility] [address] [place], [place] [id number] documented as of this encounter Goals Goal Patient Goal Type Associated Problems Recent Progress Patient-Stated? Author Eat better, exercise, reach an ideal body weight General No Vanna Rooney RMA Stay Tobacco Free Lifestyle No Vanna Rooney RMA documented as of this encounter Visit Diagnoses Not on filedocumented in this encounter Discontinued Medications Medication Sig Discontinue Reason Start Date End Da te rivaroxaban (XARELTO) 2.5 mg Oral Tablet TAKE ONE TABLET BY MOUTH 2 TIMES A DAY 10/18/2023 08/22/2024 documented as of this encounter Care Teams Business Analytics Faculty Member Relationship Specialty Start Date End Date Patsy Hair MD [address] [place], [place] [id number] PCP - General Family Medicine 07/19/13 Crystal Osborne MD [address] [place] [address] Internal Medicine-Nephrology 12/06/23 documented as of this encounter
--- OUTSIDE RECORDS SUMMARY | 2024-10-04 12:16 | XMS_ITS | Encounter Summary ---
Author Organization [place] [address] Care Team Providers Care Instructor Of Spanish Name Role Phone Patsy Hair MD Primary Care Provider [phone] Crystal Osborne MD Unavailable [phone] Reason for Visit * Reason Comments Medication Refill Encounter Details Date Type Department Care Team (Late st Contact Info) Description 08/10/2024 Refill [facility] 100 [place] [phone] Patsy Hair MD [address] [place], [place] [id number] Medication Refill Social History Tobacco Use Types [...] Refills Last Filled Start Date End Date albuterol (PROVENTIL HFA;VENTOLIN HFA) 90 mcg/actuation Inhl HFA Aerosol InhalerIndications :Wheeze INHALE 2 PUFFS BY MOUTH EVERY 4 HOURS NEEDED FOR WHEEZING 18 g 2 08/13/2024 documented in this encounter Miscellaneous Notes * Telephone Encounter - Itzel Webster CPhT - 08/13/2024 7:22 AM EDT Albuterol Future Visit: na Last Assessed Visit: 04/06/24 Follow-Up Date: 10/04/24 All protocols passed. Refills approved and sent to requesting pharmacy. Routed to [facility] if applicable. documented in this encounter Plan of Treatment Upcoming Encounters Date Type Department Care Team (Late st Contact Info) Description 10/30/2024 9:40 AM EDT Office Visit [facility] [address] [address] Tiago Franz MD [address] [facility] [place] [address] 01/20/2025 3:15 PM EST Office Visit [facility] Nephrology Amandeep [address] [place], [place] [phone] Crystal Osborne MD [address] [place] [address] [place] [address] 09/25/2025 10:00 AM EDT Appointment [facility] 20 [facility] [address] [place] [address] Amaris Sommer [address] [place] [address] 09/25/2025 11:00 AM EDT Office Visit [facility] 20 [facility] [address] [place] [address] Amaris Sommer [address] [place] [address] documented as of this encounter Goals Goal Patient Goal Type Associated Problems Recent Progress Patient-Stated? Author Eat better, exercise, reach an ideal body weight General No Vanna Rooney RMA Stay Tobacco Free Lifestyle No Vanna Rooney RMA documented as of this encounter Visit Diagnoses Diagnosis Wheeze Wheezing documented in this encounter Discontinued Medications Medication Sig Discontinue Reason Start Date End Da te albuterol (PROVENTIL HFA;VENTOLIN HFA) 90 mcg/actuation Inhl HFA Aerosol InhalerIndications:Whee ze INHALE 2 PUFFS BY MOUTH EVERY 4 HOURS NEEDED FOR WHEEZING 06/12/2024 08/13/2024 documented as of this encounter Care Teams Instructor Of Spanish Relationship Specialty Start Date End Date Patsy Hair MD [address] [place] [address] PCP - General Family Medicine 07/19/13 Crystal Osborne MD [address] [facility] [address] [place] [address] Internal Medicine-Nephrology 12/06/23 documented as of this encounter
--- OUTSIDE RECORDS SUMMARY | 2024-10-04 12:16 | XMS_ITS | Encounter Summary ---
Author Organization [facility] Address [address] [place] [address] Care Team Providers Care Hot Stamp Operator Name Role Phone Patsy Hair MD Primary Care Provider Reason for Visit * Reason Comments Med Refill Encounter Details Date Type Department Care Team (Late st Contact Info) Description 09/30/2024 Refill [facility] [address] [place] [address] Marta Willis L, ACTIVITIES COORDINATOR [address] [place] [address] Social History Tobacco Use Types Packs/Day Years Used Date Smoking Tobacco: Every Day Cigarettes 1 15 Smokeless Tobacco: Never Comments:Quit from time to t debra but always go back to smoking 1 oack a day- 01/18/24 Alcohol Use Standard Drinks/Week Comments Never 0 (1 standard drink = 0.6 oz pure alcohol) Alcoholic Drinks/day: Occasional alcohol use PHQ-2 Answer Date Recorded Patient Health Questionnaire-2 Score 0 01/18/2024 PHQ-2A Answer Date Recorded Patient Health Questionnaire-2 Score 0 08/22/2022 Comments No Sex and Gender Information Value Date Recorded Sex Assigned at Female 05/12/2021 10:43 AM EDT Legal Sex Female 5:59 PM EDT Gender Identity Female 05/12/2021 10:43 AM EDT Sexual Orientation Straight 05/12/2021 10 :43 AM EDT documented as of this encounter Miscellaneous Notes * Telephone Encounter - Duncan Carrillo PharmD - 10/04/2024 7:42 AM EDT 1 medication(s) has been denied per protocol due to: Patient needs appointment * Telephone Encounter - Rosalia Hall - 2024 4:39 PM EDT LVM for PT to call to r/s. PT no showed last appt, letter sent w/ no response. documented in this encounter Plan of Treatment Not on file documented as of this encounter Visit Diagnoses Not on filedocumented in this encounter Additional Health Concerns Assessment Noted Time A fall risk assessment has been complete d for the patient 01/18/2024 8:55 AM EST A Body Mass Index follow-up plan has been documented for the patient 01/18/2024 9:38 AM EST documented as of this encounter Care Teams Hot Stamp Operator Relationship Specialty Start Date End Date Patsy Hair MD [address] [place] [address] PCP - General 06/26/20 documented as of this encounter
--- OUTSIDE RECORDS SUMMARY | 2024-10-04 12:16 | XMS_ITS | Clinical Summary ---
Author Organization [facility] Address [address] [place] [address] Care Team Providers Care Second Hand Name Role Phone Patsy Hair MD Primary Care Provider [phone] Allergies No known active allergies Medications triamcinolone (Kenalog) 0.1 % ointment 1 Active potassium chloride CR (Klor-Con M20) 20 MEQ ER tablet 9 Active ondansetron (Zofran) 4 MG tablet 1 Active furosemide (Lasix) 20 MG tablet 8 Active fluticasone-salm eterol (Advair Diskus) 250-50 MCG/DOSE diskus inhaler 0 Active DULoxetine (Cymbalta) [address] capsule 0 Active Nurtec 75 MG tablet dispersible 1 Active albuterol 108 (90 Base) MCG/ACT inhaler Inhale 2 puffs every 4 (four) hours if needed. 1 Active escitalopram (Lexapro) 20 MG tablet Take 1 tablet (20 mg) by mouth 1 (one) time each day. 1 Active gabapentin (Neurontin) 600 MG tablet if needed. 2 Active valACYclovir (Valtrex) 1 g tablet 2 Active benzonatate (Tessalon) 100 MG capsule 2 Active famotidine (Pepcid) 40 MG tablet 2 Active ofloxacin (Floxin) 0.3 % otic solution 2 Active alendronate (Fosamax) 70 MG tablet 3 Active clopidogrel (Plavix) 75 MG tablet 3 Active DULoxetine (Cymbalta) [address] capsule 3 Active gabapentin (Neurontin) 800 MG tablet 3 Active Xarelto 2.5 MG tablet 3 Active Anoro Ellipta 62.5-25 MCG/ACT aerosol powder 3 Active omeprazole (PriLOSEC) [address] capsule 3 Active brompheniramine- pseudoephedrine- DM 30-2-10 MG/5ML syrup 3 Active terbinafine (LamISIL) 250 MG tablet 3 Active predniSONE (Deltasone) 5 MG tablet Take 3 tablets for 5 days, then take 2 tablets for 5 days, then take 1 tablet for 5 days. 30 tablet 3 Active atorvastatin (Lipitor) 40 MG tablet Take 1 tablet (40 mg) by mouth 1 (one) time each day. 3 Active dextromethorphan -guaiFENesin (MUCINEX DM MAX STRENGTH) 60-1200 MG 12 hr tablet Take 1 tablet by mouth 2 (two) times a day if needed. 3 Active HYDROcodone-acet aminophen ([place]) 10-325 MG tablet Take 0.5 tablets (5 mg of hydrocodone) by mouth 2 (two) times a day if needed. 3 Active levoFLOXacin (Levaquin) 500 MG tablet 3 Active promethazine-dex tromethorphan (Phenergan-DM) 6.25-15 MG/5ML syrup Take 5 mL by mouth every 6 (six) hours if needed. 3 Active traMADol (Ultram) 50 MG tablet Take 1 tablet (50 mg) by mouth every 6 (six) hours if needed. 4 Active predniSONE (Deltasone) 5 MG tablet TAKE 1 TO 2 TABLETSBY MOUTH ONCE A DAY NEEDED FOR SEVERE PAIN 30 tablet 4 Active folic acid (Folvite) 1 MG tablet Take 1 tablet (1,000 mcg) by mouth 1 (one) time each day. 30 tablet 11 4 Active methotrexate 2.5 MG tabletIndication s:Seropositive rheumatoid arthritis of multiple sites (CMS/HCC) TAKE 6 TABLETS BYMOUTH ONCE WEEKLY 24 tablet 4 Active predniSONE (Deltasone) 5 MG tablet TAKE 1 TO 2 TABLETS BY MOUTH ONCE A DAY NEEDED FOR SEVERE PAIN 30 tablet 2 4 Active cyclobenzaprine (Flexeril) 10 MG tablet Take 1 tablet (10 mg) by mouth 3 (three) times a day if needed for muscle spasms for up to 21 days. 32 tablet 4 Active diclofenac (Voltaren) 1 % topical gelIndications:C hronic right shoulder pain APPLY 2 GRAMS TO AFFECTED AREA 2 TIMES A DAY 300 g 4 Active predniSONE (Deltasone) 5 MG tablet TAKE 1 TO 2 TABLETS BY MOUTH ONCE A DAY NEEDED FOR SEVERE PAIN 30 tablet 4 Active hydroxychloroqui ne (Plaquenil) 200 MG tablet TAKE ONE TABLET BY MOUTH ONCE A DAY 30 tablet 4 Active Adalimumab (Humira, 2 Pen,) 40 MG/0.8ML Auto-injector KitIndications:S eropositive rheumatoid arthritis of multiple sites (CMS/HCC) Inject 40 mg under the skin 1 (one) time per week. 4 each 4 4 Active lidocaine (Lidoderm) 5 % patchIndications :Left shoulder pain, unspecified chronicity,Traum atic tear of right rotator cuff, unspecified tear extent, initial encounter Apply 1 patch topically 1 (one) time each day over 12 hours. Remove & discard patch within 12 hours or as directed by . 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 09/22/2023 Tobacco abuse 09/22/2023 Traumatic tear of right rotator cuff 09/22/2023 Chronic right shoulder pain 09/22/2023 Rheumatoid arthritis involving multiple sites Stage 3 chronic kidney disease 09/22/2023 Rotator cuff arthropathy of right shoulder 09/21 Resolved Problems Problem Noted Date Diagnosed Date Resolved Date Generalized anxiety disorder 01/18/2024 01/18/2024 Iron deficiency anemia 12/18/202301/17 Acute colitis 12/16/2023 01/18/2024 Fibrosis of lung 12/16/2023 01/18/2024 ILD (interstitial lung disease) 12/16/2023 01/18/2024 Urinary tract infection 12/16/202306/2023 Abnormal findings on diagnos tic imaging of limbs 11/08/2023 01/18/2024 Migraine without aura, not i ntractable, without status migrainosus 10/31/2023 01/18/2024 JAMISON (acute kidney injury) 10/22/2023 Diverticulosis of intestine, part unspecified, without perforation or abscess without bleeding 10/22/2023 01/18/2024 Elevated white blood cell count, unspecified 01/18/2024 Abdominal pain 10/19/2023 01/18/2024 Shortness of breath 10/19/2023 01/18/20 Nausea & vomiting 10/19/2023 01/18/2024 Abnormal x-ray of femur 10/11/202306/2023 Localized edema 10/11/2023 01/18/2024 Tachycardia, unspecified 10/10/202306/2023 Unspecified injury of right hip, initial encounter 10/10/2023 01/18/2024 Cellulitis of right lower limb 10/02/2023 01/18/2024 Chondrocostal junction syndrome (tietze) 10/02/2023 01/18/2024 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 01/18/2024 Strain of muscle(s) and tend on(s) of the rotator cuff of right shoulder, initial encounter 09/22/2023 01/18/2024 Unspecified protein-calorie malnutrition 09/22/2023 01/18/2024 Chronic patellofemoral pain of right knee 08/30/2023 01/18/2024 Overview (01/18/2024): Feels like shooting and knee is warm to the touch. It?s hard to get comfortable before going to sleep. Pain is worse when I get up and continues throughout the day Anemia, unspecified 08/28/2023 01/18/20 Hypokalemia 08/28/2023 01/18/2024 Immunosuppressed status 08/10/202306/2023 Osteopenia 08/10/2023 01/18/2024 Scoliosis 08/10/2023 01/18/2024 Unspecified injury of right shoulder and upper arm, initial encounter 08/09/2023 01/18/2024 Pneumonia 06/24/2023 01/18/2024 Other nonspecific abnormal f inding of lung field 06/23/2023 01/18/2024 Ventral incisional hernia wi thout obstruction or gangrene 06/23/2023 01/18/2024 Abnormal weight loss 06/09/2023 024 Benign neoplasm of ascending colon 06/07/2023 01/18/2024 Unspecified fall, initial encounter 05/12/2023 01/18/2024 Activity, unspecified 04/24/20232023 Other displaced fracture of upper end of unspecified humerus, initial encounter for closed fracture 04/24/2023 01/18/2024 Effusion, right shoulder 04/24/202306/2023 Other fall from one level to another, initial encounter 04/04/2023 01/18/2024 Other specified disorders of bone density and structure, left shoulder 04/04/2023 01/18/2024 Generalized hyperhidrosis 03/22/2023 Spinal stenosis, site unspecified 03/22/2023 01/18/2024 Immunodeficiency, unspecified 12/22/2022 01/18/2024 Fatigue 11/13/2022 01/18/2024 Overview (01/18/2024): Had bronchitis and a cough also pneumonia for almost 6 weeks. Starts to go away and comes back. Missed 6 humira injections and have taken 2 since. Pain in both upper arms 11/13/2022 1206/2023 Overview (01/18/2024): Patient n with movement, lifting continuously Atherosclerosis of tunica-biloxi ar addi of both lower extremities with intermittent claudication 01/11/2022 01/18/2024 Cigarette nicotine dependenc e with nicotine-induced disorder 01/11/2022 01/18/2024 Atherosclerosis of tunica-biloxi ar addi of both lower extremities with bilateral ulceration 01/11/2022 01/18/2024 Ulcer of extremity due to ch ronic venous insufficiency 01/11/2022 01/18/2024 Varicose veins of bilateral lower extremities with other complications 01/11/2022 01/18/2024 History of colon polyps 10/01/202106/2023 Overview (01/18/2024): Diverticulitis with history of resection and tubular adenoma [address] silva at [facility] Wrist pain 01/01/2020 01/18/2024 Acute bronchitis, unspecified 04/17/2019 01/18/2024 S/P total hip arthroplasty 09/26/2018 1 03/20/2023 Basal cell carcinoma of skin, unspecified 08/14/2018 01/18/2024 Osteoarthritis of left hip 07/18/2018 1 03/20/2023 Gastroesophageal reflux dise ase without esophagitis 09/05/2015 01/18/2024 Vitamin B 12 deficiency 09/05/201506/2023 Symptomatic menopausal or fe male climacteric states 02/28/2013 01/18/2024 Urinary incontinence 02/11/2011 024 Diverticulitis 12/11/2010 01/18/2024 IBS (irritable bowel syndrome) 12/11/2010 01/18/2024 Encounters Date Type Department Care Team Description 09/30/2024 Refill [facility] [address] [place] [address] Marta Willis, BASS GUITAR TEACHER 09/02/2024 Refill [facility] [address] [place] [address] Marta Willis, BASS GUITAR TEACHER 07/31/2024 Telephone [facility] [address] [place] [address] Braulio Scott 07/16/2024 Telephone [facility] [address] [place] [address] Batch, Macho J, PharmD from Last 3 Months Immunizations Immunization Administration Dates Next Due Influenza Vaccine, Quadrivalent, Adjuvanted 11/14,11/24/2009 Influenza, recombinant, quad rivalent, injectable, preservative free 11/26/2021 Influenza, seasonal, injectable, preservative fr ee 12/16/2023 Moderna COVID-19 Vaccine (Clinical Exercise Specialist) 12+ years ,10/08/2020 Pneumococcal 20-ventura Conj Vaccine 07/09/2021 Tdap 10/01/2021,09/21/2011 Family History Medical History Relation Name Comments No Known Problems Brother 1 Diabetes Brother 2 Tim [place] neurological disorder Brother 2 Tim [place] Cancer Father Vern [place] Hypertension Father Vern [place] Arthritis Maternal Grandmother Danay Lopez Hearing loss Mother Alvina [place] Hypertension Mother Alvina Erin Arthritis Other 1 Other cancer Other 2 Heart Problem Other 3 Arthritis Paternal Grandmother Izzy [place] Diabetes Paternal Grandmother Izzy Erin Kidney disease Paternal Grandmother Izzy Erin Fibromyalgia Sister Char Calix Heart disease Sister Charasia Calix Relation Name Status Comments Brother 1 Brother 2 Tim Erin Father Vern [place] Maternal Grandmother Danay Lopez Mother Alvina Blackmoncaid Other 1 Other 2 Other 3 Paternal Grandmother Izzy Erin Sister Char Jaymaría Calix Social History Tobacco Use Types Packs/Day Years [...] Orientation Straight 05/12/2021 10 :43 AM EDT Last Filed Vital Signs Vital Sign Reading Time Taken Comments Blood Pressure 117/79 01/18/2024 8:47 AM EST Pulse 91 01/18/2024 8:47 AM EST Temperature 36.9 C (98.4 F) 01/18/2024 8:47 AM EST Respiratory Rate 16 03/07/2023 2:11 PM EST Oxygen Saturation 97% 01/18/2024 8:47 AM EST Inhaled Oxygen Concentration - - Weight 56.3 kg (124 lb 1.9 oz) 01/18/2024 8:47 A M EST Height 135.9 cm (4' 5.5 ) 01/18/2024 8:47 AM EST Body Mass Index 30.49 01/18/2024 8:47 AM EST Plan of Treatment Health Maintenance Due Date Last Done Comments [facility]-Infant/Child/Adol SDOH Screenings 1962 [facility]- SDOH Screenings 1980 [facility]-Adult SDOH Screenings 1980 [facility]-Zoster Vaccines (1 of 2) 1981 [facility]-HPV/Cotest 1992 CT Colonography 10/04/2007 Colonoscopy 10/04/2007 FIT-DNA 10/04/2007 FIT 10/04/2007 FOBT 10/04/2007 Sigmoidoscopy 10/04/2007 [facility]-Colorectal Cancer Screening 10/04/2007 [id number] Vaccine (3 - Moderna risk series) 12/08/2020 11/10/2020, 10/08/2020 [facility]-RSV Vaccine: 60+ Years or (1 - Risk 60-74 years 1-dose series) 2022 [facility]-Bone Density Scan 11/24/2022 11/24/2021, 022 [facility]-Influenza Vaccine (#1) 10/14/202412/15, 11/26/2021, 12/11/2010, Additional history exists [facility]-Medicare Annual Wellness (AWV) 12/15/2024 12/16/2023 [facility]-Depression Screening 01/17/2025 01/18/2024 [facility]-Cervical Cancer Screening 03/30/2025 [facility]-Pap Smear 03/30/2025 03/30/2022 [facility]-Breast Cancer Screening 04/16/2025 03/0 05/2023, 04/17/2023, 04/27/2021, Additional history exists [facility]-DTaP,Tdap,and Td Vaccines (3 - Td or Tdap) 10/02/2031 10/01/2021, 09/21/2011 [facility]-HIV Screening Completed 12/31/2019 [facility]-Hepatitis C Screening Completed 12/31/2019 [facility]-Pneumococcal Vaccine: 50+ Years Completed 07/09/2021 [facility]-Lung Cancer Screening Discontinued 08/30/2023, [facility]-Obesity Intervention Completed 024, 09/22/2023, 08/09/2023, Additional history exists HPV Vaccines Aged Out No longer eligi ble based on patient's age to complete this topic [facility]-HIB Vaccines Aged Out No longer e ligible based on patient's age to complete this topic [facility]-Hepatitis A Vaccines Aged Out No longer eligible based on patient's age to complete this topic [facility]-IPV Vaccines Aged Out No longer e ligible based on patient's age to complete this topic [facility]-Rotavirus Vaccines Aged Out No lo nger eligible based on patient's age to complete this topic Procedures Procedure Name Priority Date/Time Associated Diagnosis Comments HEPATITIS C ANTIBODY W/REFLEX TO HCV QUANT PCR Routine 12/31/2019 10:47 AM EST HIV 1/2 ANTIBODY/ANTIGEN SCREEN WITH REFLEX TO HIV I/II DIFFERENTIATION Routine 12/31/2019 10:47 AM EST from Last 3 Months or Most Recently Relevant to Health Maintenance Results * HIV 1 & 2 Antibody/Antigen Screen (12/31/2019 10:47 AM EST) HIV 1 Result NONREACTIVE Screening for HIV 1 and 2 antibodies is NONREACTIVE. No confirmatory testing is required. SUNQUEST 12/31/2019 10:4 7 AM EST 12/31/2019 12:05 PM EST us Yarelis Hutchison BASS GUITAR TEACHER, DNP LAB BLOOD ORDERABLE S Final Result SUNQUEST * Hepatitis C Antibody (12/31/2019 10:47 AM EST) Hepatitis C Antibody NEGATIVE Reference Range: Negative SUNQUEST 12/31/2019 10:4 7 AM EST 12/31/2019 12:05 PM EST us Yarelis Hutchison BASS GUITAR TEACHER, DNP LAB BLOOD ORDERABLE S Final Result SUNQUEST from Last 3 Months or Most Recently Relevant to Health Maintenance Insurance [employer] Care Teams Second Hand Relationship Specialty Start Date End Date Patsy Hair MD [address] [place] [id number] PCP - General 06/26/20
--- OUTSIDE RECORDS SUMMARY | 2024-10-04 12:16 | XMS_ITS | Encounter Summary ---
Author Organization [facility] [place] [address] Care Team Providers Care Tool Lapper Hand Name Role Phone Patsy Hair MD Primary Care Provider [phone] Crystal Osborne MD Unavailable [phone] Reason for Visit * Reason Onset Date Comments Medication Refill 09/24/2024 Encounter Details Date Type Department Care Team (Late st Contact Info) Description 09/24/2024 Refill [facility] [address] [place] [id number] Patsy Hair MD [address] [place] [address] Medication Refill Social History Tobacco Use Types [...] 9:40 AM EDT Office Visit [facility] [address] [place] [address] Tiago Franz MD [address] [place] [address] 01/20/2025 3:15 PM EST Office Visit [facility] Neph[facility] [address] [place] [address] Crystal Osborne MD [address] [facility] [address] [place] [address] 09/25/2025 10:00 AM EDT Appointment [facility] [address] [place] [address] Amaris Sommer APRN [address] [place] [address] 09/25/2025 11:00 AM EDT Office Visit [facility] [address] [place] [address] Amaris Sommer APRN [address] [place], [place] [id number] documented as of this encounter Goals Goal Patient Goal Type Associated Problems Recent Progress Patient-Stated? Author Eat better, exercise, reach an ideal body weight General No Vanna Rooney, RMA Stay Tobacco Free Lifestyle No Vanna Rooney RMA documented as of this encounter Visit Diagnoses Diagnosis Wheeze Wheezing COPD with acute exacerbation (HCC) Obstructive chronic bronchitis with exacerbation documented in this encounter Care Teams Tool Lapper Hand Relationship Specialty Start Date End Date Patsy Hair MD [address] [place] [address] PCP - General Family Medicine 07/19/13 Crystal Osborne MD [address] [facility] [facility] [address] [place] [address] Internal Medicine-Nephrology 12/06/23 documented as of this encounter
--- OUTSIDE RECORDS SUMMARY | 2024-10-04 12:16 | XMS_ITS | Encounter Summary ---
Author Organization [facility] Address [address] [place] [address] Care Team Providers Care Printing Estimator Name Role Phone Patsy Hair MD Primary Care Provider [phone] Reason for Visit * Reason Comments Med Refill Encounter Details Date Type Department Care Team (Late st Contact Info) Description 09/02/2024 Refill [facility] [address] [place] [address] Marta Willis L, BREAK AND LOAD OPERATOR [address] [place] [address] Social History Tobacco Use Types [...] as of this encounter Miscellaneous Notes * Progress Notes - Christine Fermin, PharmD - 09/09/2024 7:35 AM EDT 1 medication(s) has been denied per protocol due to: Patient with appt today documented in this encounter Plan of Treatment [...] documented as of this encounter Care Teams Printing Estimator Relationship Specialty Start Date End Date Patsy Hair MD [address] [place] [address] PCP - General 06/26/20 documented as of this encounter
--- OUTSIDE RECORDS SUMMARY | 2024-10-04 12:16 | XMS_ITS | Clinical Summary ---
Author Organization [facility] Address [address] [place] [address] Care Team Providers Care Clinical Trial Head Name Role Phone Patsy Hair MD Primary Care Provider [phone] Source Comments This information has been disclosed to you from confidential records protectedfrom disclosure by state law. You shall make no further disclosure of thisinformation without the specific, written, and informed release of theindividual to whom it pertains, or as otherwise permitted by law. A generalauthorization for the release of medical or other information is not sufficientfor the purposes of therelease of HIV test results or diagnoses. [id number] Allergies No known active allergies Medications acetaminophen (TYLENOL) 500 MG tablet Take by mouth. 11/24/2018 Active DULoxetine (CYMBALTA) 60 MG capsule Take by mouth. 11/15/2018 Active furosemide (LASIX) 20 MG tablet 0 12/12/2018 Active ibuprofen (ADVIL,MOTRIN) 800 MG tablet 0 12/12/2018 Activ e omeprazole (PRILOSEC) 20 MG capsule 0 12/29/2018 Active potassium chloride (KLOR-CON M20) 20 MEQ tablet Take 20 mEq by mouth 2 times a day. 0 12/29/2018 Active cyanocobalamin (VITAMIN B-12) 500 MCG tablet Take 500 mcg by mouth daily. Active Social History Tobacco Use Types Packs/Day Years Used Date Smoking Tobacco: Every Day Cigarettes Smokeless Tobacco: Never Alcohol Use Standard Drinks/Week Comments Yes 0 (1 standard drink = 0.6 oz pur e alcohol) Comments Unknown Sex and Gender Information Value Date Recorded Sex Assigned at Not on file Legal Sex Female 7:49 AM EDT Gender Identity Not on file Sexual Orientation Not on file Last Filed Vital Signs Vital Sign Reading Time Taken Comments Blood Pressure 128/78 01/03/2019 11:07 AM EST Pulse - - Temperature - - Respiratory Rate - - Oxygen Saturation - - Inhaled Oxygen Concentration - - Weight - - Height - - Body Mass Index - - Plan of Treatment Not on file Insurance [facility] Address: [facility] [id number] [place] [address] Care Teams Clinical Trial Head Relationship Specialty Start Date End Date Patsy Hair MD PCP - General Family Medicine 12/10/18
--- OUTSIDE RECORDS SUMMARY | 2024-10-04 12:16 | XMS_ITS | Clinical Summary ---
Author Organization [facility] Address [address] [place] [address] Phone Care Team Providers Care Forestry Consultant Name Role Phone Patsy Hair MD Primary Care Provider [phone] Crystal Osborne MD Unavailable [phone] Allergies No known active allergies Medications folic acid (FOLVITE) 1 mg Oral Tablet Take 1 mg by mouth daily. Active methotrexate 2.5 mg Oral Tablet Take 2.5 mg by mouth once a week. Take 6 tabs PO every week Active hydrOXYchloroQUI NE (PLAQUENIL) 200 mg Oral TabletIndication s:Rheumatoid arthritis, involving unspecified site, unspecified whether rheumatoid factor present ([facility]) 07/10/19 22 Active HUMIRA PEN 40 mg/0.8 mL SubQ Pen Injector KitIndications:R heumatoid arthritis, involving unspecified site, unspecified whether rheumatoid factor present ([facility]) 07/23/19 22 Active triamcinolone (KENALOG) 0.1 % Top OintmentIndicati ons:Cracked skin APPLY TOPICALLY TO AFFECTED AREA 2 TIMES A DAY FOR 10 DAYS 80 g 10/24/19 22 Active clotrimazole (LOTRIMIN) 1 % Top Cream Apply topically 2 times daily. 24 g 10/24/19 22 Active mupirocin (BACTROBAN) 2 % Top OintmentIndicati ons:Cellulitis of leg, left Apply topically 3 times daily. 15 g 10/24/19 22 Active diclofenac (VOLTAREN) 1 % Top Gel 07/19/19 24 Active cyanocobalamin 1,000 mcg/mL Inj SolutionIndicati ons:Vitamin B 12 deficiency Inject 1 mL into the muscle every 30 days. [place]/syringe also please 1 mL 10/31/19 24 Active nicotine (NICODERM CQ) 21 mg/24 hr TD Patch [address] 1 Patch onto the skin every 24 hours. 28 Patch 1 12/16/19 24 Active ferrous sulfate 325 mg (65 mg iron) Oral Tablet Take 1 Tablet by mouth daily. 90 Tablet 3 12/18/19 24 Active Syringe with Needle, Disp, (BD LUER-SUSAN SYRINGE) 3 mL 25 x 5/8 Misc Syringe USE DIRECTED ONCE MONTHLY 1 Each 06/06/19 25 Active lidocaine (LIDODERM) 5 % Top Adhesive Patch, Medicated Place 1 Patch onto the skin daily. 30 Patch 06/06/19 25 Active mirtazapine (REMERON) 15 mg Oral TabletIndication s:Rheumatoid arthritis, involving unspecified site, unspecified whether rheumatoid factor present (HCC),Unintended weight loss Take 1 Tablet by mouth nightly. 90 Tablet 3 06/06/19 25 Active albuterol (PROVENTIL) 2.5 mg /3 mL (0.083 %) Inhl Solution for NebulizationIndi cations:Dyspnea, unspecified type Take 3 mL by nebulization every 4 hours as needed for Wheezing. 1620 mL 07/03/19 25 Active predniSONE (DELTASONE) 20 mg Oral TabletIndication s:COPD with acute exacerbation (HCC) TAKE 3 TABLETS BY MOUTH ONCE A DAY FOR 3 DAYS THEN DECREASE BY 1 TABLET EVERY 3 DAYS UNTIL GONE 18 Tablet 2 07/04/19 25 Active Brompheniramine- Pseudoeph-DM 2-30-10 mg/5 mL Oral Syrup Take 10 mL by mouth every 4 hours as needed. 240 mL 1 07/23/19 25 Active terbinafine HCL (LAMISIL) 250 mg Oral TabletIndication s:Tinea pedis of both feet TAKE 1 TABLET BY MOUTH ONCE A DAY 30 Tablet 1 07/25/19 25 Active potassium chloride (KLOR-CON M) 20 mEq Oral Tab Sust.Rel. Particle/Crystal Indications:Hypo kalemia Take 1 Tablet by mouth daily. 90 Tablet 3 09/10/19 25 Active gabapentin (NEURONTIN) 800 mg Oral TabletIndication s:Rheumatoid arthritis, involving unspecified site, unspecified whether rheumatoid factor present ([facility]),Vitamin B 12 deficiency,Gastr oesophageal reflux disease without esophagitis,Immu nocompromised,At herosclerosis of [place] artery of both lower extremities with intermittent claudication,PAD (peripheral artery disease),Stage 3b chronic kidney disease (HCC) TAKE 1 TABLET BY MOUTH EVERY EVENING MAY TAKE ADDITIONAL 1/2 TABLET EVERY MORNING AND EVERY AFTERNOON NEEDED 60 Tablet 09/12/19 25 Active cyclobenzaprine (FLEXERIL) 10 mg Oral Tablet Take 1 Tablet by mouth every 8 hours as needed for Muscle spasms for up to 30 days. 90 Tablet 2 09/12/19 25 025 Active rivaroxaban (XARELTO) 2.5 mg Oral Tablet Take 1 Tablet by mouth 2 times daily. 60 Tablet 5 09/12/19 25 Active albuterol (PROVENTIL HFA;VENTOLIN HFA) 90 mcg/actuation Inhl HFA Aerosol InhalerIndicatio ns:Wheeze Inhale 2 Puffs into the lungs every 4 hours as needed. for wheezing 18 g 2 09/12/19 25 Active budesonide-glyco pyr-formoterol (BREZTRI AEROSPHERE) 160-9-4.8 mcg/actuation Inhl HFA Aerosol InhalerIndicatio ns:COPD with acute exacerbation ([facility]) Inhale 2 Puffs into the lungs 2 times daily. 10.7 g 11 09/12/19 25 Active alendronate (FOSAMAX) 70 mg Oral Tablet Take 1 Tablet by mouth once a week. 12 Tablet 3 09/12/19 25 Active cariprazine (VRAYLAR) 1.5 mg Oral CapsuleIndicatio ns:Generalized anxiety disorder,Recurre nt major depression resistant to treatment Take 1 Capsule by mouth daily. 90 Capsule 3 09/12/19 25 Active clopidogreL (PLAVIX) 75 mg Oral Tablet Take 1 Tablet by mouth daily. 90 Tablet 3 09/12/19 25 Active doxepin (SINEQUAN) 10 mg Oral Capsule Take 1 Capsule by mouth nightly. 90 Capsule 3 09/12/19 25 Active DULoxetine (CYMBALTA) 60 mg Oral Capsule, Delayed Release(E.C.)Ind ications:General ized anxiety disorder,Recurre nt major depression resistant to treatment Take 2 Capsules by mouth daily. 200 Capsule 1 09/12/19 25 Active escitalopram oxalate (LEXAPRO) 20 mg Oral TabletIndication s:Generalized anxiety disorder Take 1 Tablet by mouth daily. 90 Tablet 3 09/12/19 25 Active famotidine (PEPCID) 40 mg Oral TabletIndication s:Generalized abdominal pain Take 1 Tablet by mouth every evening. 90 Tablet 3 09/12/19 25 Active omeprazole (PRILOSEC) 40 mg Oral Capsule, Delayed Release(E.C.) TAKE 1 CAPSULE BY MOUTH ONCE A DAY 90 Capsule 3 09/12/19 25 Active rimegepant (NURTEC ODT) 75 mg Oral Tablet, Rapid DissolveIndicati ons:Migraine without aura and without status migrainosus, not intractable DISSOLVE 1 TABLET ON THE TONGUE EVERY 48 HOURS ONLY NEEDED FOR MIGRAINE 8 Tablet 6 09/12/19 25 Active atorvastatin (LIPITOR) 40 mg Oral Tablet Take 1 Tablet by mouth daily. 90 Tablet 3 09/12/19 25 Active ANORO ELLIPTA 62.5-25 mcg/actuation Inhl Disk with DeviceIndication s:COPD with acute exacerbation (HCC) Inhale 1 Puff into the lungs daily. 60 Each 2 09/12/19 25 Active fUROsemide (LASIX) 20 mg Oral TabletIndication s:Peripheral edema TAKE 1 TABLET BY MOUTH ONCE A DAY NEEDED FOR SWELLING 90 Tablet 1 09/12/19 25 Active ciprofloxacin HCl (CIPRO) 500 mg Oral TabletIndication s:Diverticulitis of large intestine without perforation or abscess without bleeding Take 1 Tablet by mouth 2 times daily for 7 days. 14 Tablet 09/12/19 25 025 metroNIDAZOLE (FLAGYL) 500 mg Oral TabletIndication s:Diverticulitis of large intestine without perforation or abscess without bleeding Take 1 Tablet by mouth 3 times daily for 7 days. 21 Tablet 09/12/19 25 025 Hospital, Clinic, or Other Facility Administered Medication Ordered Dose Route Frequency Start Date End Date Status methylPREDNISolone acetate (DEPO-Medrol) injection 120 mgIndications:Rheumatoid arthritis, involving unspecified site, unspecified whether rheumatoid factor present (HCC) 120 mg IM ONCE 09/11/2024 09/11/2024 Ended ketorolac (TORADOL) injection 60 mgIndications:Rheumatoid arthritis, involving unspecified site, unspecified whether rheumatoid factor present (HCC) 60 mg IM ONCE 09/11/2024 09/11/2024 Ended Active Problems Patient Care Coordination No te Formatting of this note migh t be different from the original. Care gap audit completed by Lisa Gerber RN on 12/21/2021. CSTA: 06/01/18 (TYPE): Chronic pain KEN: 04/15/17, 03/15/17 UDS: 06/01/18 GALO: 06/01/18 01/11/22 KEN #[id number] (as expected) Hill Santamaria MD Problem Noted Date Diagnosed Date CYP2C9 intermediate metabolizer 01/19/2024 Assessment & Plan (06/08/2024 7:02 PM EDT): stable Iron deficiency anemia 12/18/2023 Acute colitis 12/16/2023 Acute pain of left knee 12/16/2023 Fibrosis of lung 12/16/2023 ILD (interstitial lung disease) 12/16/2023 Nausea & vomiting 12/16/2023 Urinary tract infection 12/16/2023 Abnormal x-ray of femur 10/11/2023 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 Chronic right shoulder pain 09/22/2023 Rotator cuff arthropathy of right shoulder 09/21 Traumatic tear of right rotator cuff 09/22/2023 Immunosuppressed status 08/10/2023 Osteopenia 08/10/2023 Scoliosis 08/10/2023 Ventral incisional hernia without obstruction or gangrene 08/10/2023 COPD (chronic obstructive pulmonary disease) Atherosclerosis of [place] ar addi of both lower extremities with intermittent claudication 01/11/2022 Assessment & Plan (06/08/2024 7:02 PM EDT): Orders: gabapentin (NEURONTIN) 800 mg Oral Tablet; TAKE ONE TABLET BY MOUTH EVERY NIGHT, MAY TAKE ADDITIONAL 1/2 TABLET IN THE MORNING AND 1/2 TABLET IN THE AFTERNOON IF NEEDED Assessment & Plan (04/09/2024 9:52 PM EST): stable Assessment & Plan (12/17/2023 9:49 PM EST): stable Orders: PHARMACOGENOMIC PANEL; Future PHARMACOGENOMIC PANEL Smoking 01/11/2022 Cigarette nicotine dependenc e with nicotine-induced disorder 01/11/2022 Varicose veins of bilateral lower extremities with other complications 01/11/2022 PAD (peripheral artery disease) 11/18/2021 Overview (11/18/2021): Worse on the left leg Assessment & Plan (06/08/2024 7:02 PM EDT): Orders: gabapentin (NEURONTIN) 800 mg Oral Tablet; TAKE ONE TABLET BY MOUTH EVERY NIGHT, MAY TAKE ADDITIONAL 1/2 TABLET IN THE MORNING AND 1/2 TABLET IN THE AFTERNOON IF NEEDED Assessment & Plan (04/09/2024 9:52 PM EST): stable Assessment & Plan (12/17/2023 9:49 PM EST): stable Orders: PHARMACOGENOMIC PANEL; Future PHARMACOGENOMIC PANEL Stage 3a chronic kidney disease 10/28/2021 History of colon polyps 10/01/2021 Overview (10/01/2021): Diverticulitis with history of resection and tubular adenoma [address] silva at [facility] 01/27/2021 Overview (01/27/2021): On [facility]. rheumatology Assessment & Plan (06/08/2024 7:02 PM EDT): Orders: gabapentin (NEURONTIN) 800 mg Oral Tablet; TAKE ONE TABLET BY MOUTH EVERY NIGHT, MAY TAKE ADDITIONAL 1/2 TABLET IN THE MORNING AND 1/2 TABLET IN THE AFTERNOON IF NEEDED Assessment & Plan (04/09/2024 9:52 PM EST): stable Assessment & Plan (12/17/2023 9:49 PM EST): stable Orders: PHARMACOGENOMIC PANEL; Future PHARMACOGENOMIC PANEL Vitamin B 12 deficiency 09/05/2015 Assessment & Plan (06/08/2024 7:02 PM EDT): Orders: gabapentin (NEURONTIN) 800 mg Oral Tablet; TAKE ONE TABLET BY MOUTH EVERY NIGHT, MAY TAKE ADDITIONAL 1/2 TABLET IN THE MORNING AND 1/2 TABLET IN THE AFTERNOON IF NEEDED Assessment & Plan (04/09/2024 9:52 PM EST): Assessment & Plan (12/17/2023 9:49 PM EST): Orders: cyanocobalamin injection 1,000 mcg PHARMACOGENOMIC PANEL; Future PHARMACOGENOMIC PANEL Gastroesophageal reflux disease without esophagi tis 09/05/2015 Assessment & Plan (06/08/2024 7:02 PM EDT): Orders: gabapentin (NEURONTIN) 800 mg Oral Tablet; TAKE ONE TABLET BY MOUTH EVERY NIGHT, MAY TAKE ADDITIONAL 1/2 TABLET IN THE MORNING AND 1/2 TABLET IN THE AFTERNOON IF NEEDED Assessment & Plan (04/09/2024 9:52 PM EST): Assessment & Plan (12/17/2023 9:49 PM EST): Orders: PHARMACOGENOMIC PANEL; Future PHARMACOGENOMIC PANEL Urinary incontinence 02/11/2011 Hand arthritis 02/11/2011 Pain medication agreement completed 01/10/2011 IBS (irritable bowel syndrome) 12/11/2010 Assessment & Plan (12/17/2023 9:49 PM EST): Orders: PHARMACOGENOMIC PANEL; Future PHARMACOGENOMIC PANEL Diverticulitis 12/11/2010 Arthritis, rheumatoid Assessment & Plan (06/08/2024 7:02 PM EDT): stable Orders: mirtazapine (REMERON) 15 mg Oral Tablet; Take 1 Tablet by mouth nightly. gabapentin (NEURONTIN) 800 mg Oral Tablet; TAKE ONE TABLET BY MOUTH EVERY NIGHT, MAY TAKE ADDITIONAL 1/2 TABLET IN THE MORNING AND 1/2 TABLET IN THE AFTERNOON IF NEEDED Assessment & Plan (04/09/2024 9:52 PM EST): stable Orders: ketorolac (TORADOL) injection 60 mg Assessment & Plan (12/17/2023 9:49 PM EST): Orders: HYDROcodone-acetaminophen (NORCO) 10-325 mg Oral Tablet; Take 0.5 Tablets by mouth 2 times daily as needed for Chronic Pain (G89.29). AMB RE[facility]ERRAL TO [facility] PHARMACOGENOMIC PANEL; Future PHARMACOGENOMIC PANEL stable Generalized anxiety disorder Assessment & Plan (06/08/2024 7:02 PM EDT): Orders: cariprazine (VRAYLAR) 1.5 mg Oral Capsule; Take 1 Capsule by mouth daily. escitalopram oxalate (LEXAPRO) 20 mg Oral Tablet; Take 1 Tablet by mouth daily. DULoxetine (CYMBALTA) 60 mg Oral Capsule, Delayed Release(E.C.); Take 2 Capsules by mouth daily. Assessment & Plan (04/09/2024 9:52 PM EST): Assessment & Plan (12/17/2023 9:49 PM EST): Orders: PHARMACOGENOMIC PANEL; Future PHARMACOGENOMIC PANEL Menopause Resolved Problems Problem Noted Date Diagnosed Date Resolved Date JAMISON (acute kidney injury) 12/16/2023 Malnutrition due to renal disease 09/22/2023 12/17/2023 Atherosclerosis of [place] ar addi of both lower extremities with bilateral ulceration 01/11/2022 06/08/2024 Ulcer of extremity due to ch ronic venous insufficiency 01/11/2022 06/08/2024 Basal cell carcinoma of skin, unspecified 08/14/2018 08/10/2023 Overview (08/10/2023): Ileostomy in place 09/05/2015 8 Overview (09/05/2015): Due to diverticulitis surgery Encounters Date Type Department Care Team Description 09/24/2024 Refill [facility] [address] [place] [address] Patsy Hair MD Medication Refill 09/24/2024 Telephone [facility] [address] [place], [place] [phone] Patsy Hair MD Relaying Information (Case Management Plan from [facility] faxed) 09/20/2024 8:45 AM EDT Clinical Support [facility] [address] [place], [place] [phone] Shani Jimenez MA Decreased potassium in the blood 09/20/2024 Results Follow-Up [facility] [address] [place], [place] [phone] Patsy Hair MD COMPREHENSIVE METABOLIC PANEL 09/20/2024 Orders Only [facility] [place] [phone] Patsy Hair MD Decreased potassium in the blood (Primary Dx) 09/18/2024 Travel 09/15/2024 Results Follow-Up [facility] [place], [place] [phone] Patsy Hair MD CBC WITH DIFF, COMPREHENSIVE METABOLIC PANEL, LIPID SCREEN, Additional followed-up results: 3 09/11/2024 10:45 AM EDT Office Visit [facility] [place], [place] [phone] Patsy Hair MD Diverticulitis of large intestine without perforation or abscess without bleeding (Primary Dx); Rheumatoid arthritis, involving unspecified site, unspecified whether rheumatoid factor present (HCC); Vitamin B 12 deficiency; Gastroesophageal reflux disease without esophagitis; Immunocompromised; Atherosclerosis of [place] artery of both lower extremities with intermittent claudication; PAD (peripheral artery disease); Stage 3b chronic kidney disease (HCC); Wheeze; COPD with acute exacerbation (HCC); Generalized anxiety disorder; Recurrent major depression resistant to treatment; Generalized abdominal pain; Migraine without aura and without status migrainosus, not intractable; Peripheral edema; Ventral incisional hernia without obstruction or gangrene; Coronary artery calcification seen on CT scan 09/11/2024 Telephone [facility] [address] [place] [phone] Yulissa Conti, Clerical Staff Referral 09/09/2024 [facility] Nephrology [place] [address] [place], [place] [id number] Crystal Osborne MD Medication Refill 09/03/[address] [phone] Patsy Hair MD Symptoms (Only Use If Pt Pushes Back On Scheduling A Visit) (Hernia) 09/03/2024 Telephone [facility] ATTN: Appointments in this department are performed at various locations in the community on our Cardiovascular mobile health unit. You can look online to verify your site or call [phone] [address] [facility] Marroquin RN Results 09/02/2024 Refill [facility] [address] [place] [phone] Patsy Hair MD Medication Refill 08/30/2024 11:16 AM EDT - 08/30/2024 11:59 PM EDT Hospital Encounter [address] [place] [address] Patsy Hair MD Screening for malignant neoplasm of respiratory organ; Personal history of tobacco use, presenting hazards to health Discharge Disposition: Home or Self Care 08/30/2024 Orders Only [facility] [address] [place] [phone] Patsy Hair MD Screening for malignant neoplasm of respiratory organ (Primary Dx); Personal history of tobacco use, presenting hazards to health 08/27/[address] [phone] Patsy Hair MD Medication Refill 08/26/2024 9:00 AM EDT Office Visit [facility] [address] [facility] [address] [place] [address] Amaris Sommer APRN PAD (peripheral artery disease) (Primary Dx); Claudication of lower extremity with history of revascularization; Atherosclerosis of [place] artery of both lower extremities with intermittent claudication; Stage 3a chronic kidney disease (HCC); Varicose veins of bilateral lower extremities with other complications; Cigarette nicotine dependence with nicotine-induced disorder; Rheumatoid arthritis of both hips, unspecified whether rheumatoid factor present (HCC) 08/23/2024 8:36 AM EDT - 08/23/2024 11:59 PM EDT Hospital Encounter [facility] [address] [facility] [place] [address] Amaris Sommer APRN PAD (peripheral artery disease); Claudication of lower extremity with history of revascularization Discharge Disposition: Home or Self Care 08/23/2024 Telephone [facility] [address] [place] [address] Patsy Hair MD Relaying Information (pt stating has had cramps in legs and feet at night time for the last 3 week/ pt is taking the potassium and looking for advice ) 08/22/2024 Travel 08/22/2024 Refill [facility] [address] [facility] [address] [place] [phone] Hill Santamaria MD Medication Refill 08/10/2024 Refill [facility] [address] [place] [phone] Patsy Hair MD Medication Refill 08/02/2024 Refill [facility] [address] [place] [address] Patsy Hair MD Medication Refill 08/01/2024 Refill [facility] [address] [place] [phone] Patsy Hair MD Medication Refill 07/23/2024 Refill [facility] [address] [place] [phone] Patsy Hair MD Medication Refill 07/21/2024 Refill [facility] [address] [place] [phone] Patsy Hair MD Medication Refill from Last 3 Months Immunizations Immunization Administration Dates Next Due Influenza Seasonal Injectable PF 12/16/2023 Influenza Vaccine Quadrivalent Adjuvanted 2010,11/24/2009 Influenza Vaccine, Unspecified Formulation 12/11,11/24/2009 Influenza Virus Vaccine Quadrivalant, Flublok Moderna SARS-CoV-2 Vaccine 12+ Yrs (Light blue b order) 11/10/2020,10/08/2020 Pneumococcal Conjugate Vaccine 20 Valent 022 Tdap 10/01/2021,09/21/2011 Surgical History Surgery Date Site/Laterality Comments LEG SURGERY fracture - both legs ECTOPIC SURGERY abdominal surgery CERVIX SURGERY dysplasia ENDOMETRIAL ABLATION CATARACT REMOVAL 09/22/2011 Eye/Left LEFT EYE CATARACT EXTRACTION WITH PHACOEMULSIFICATION AND INTRAOCULAR LENS ; Surgeon: Mitesh Hammond MD; Location: [facility]; Service: Ophthalmology Medical devices from this surgery are in the Medical Devices section. CATARACT REMOVAL 10/06/2011 Right RIGHT EYE CATARACT EXTRACTION WITH PHACOEMULSIFICATION AND INTRAOCULAR LENS ; Surgeon: Mitesh Hammond MD; Location: [facility]; Service: Ophthalmology Medical devices from this surgery are in the Medical Devices section. IR ANGIOGRAM FEMORAL ARTERIO SHIFT 02/16/2022 IR ANGIOGRAM FEMORAL ARTERIO SHIFT 02/16/2022 Hill Santamaria MD [facility] IR IR ULTRASOUND GUIDED VASCULAR ACCESS 02/16/2022 IR ULTRASOUND GUIDED VASCULAR ACCESS 02/16/2022 Hill Santamaria MD EDG IR IR ABDOMINAL AORTOGRAM SERIALOGRAM 02/16/2022 IR ABDOMINAL AORTOGRAM SERIALOGRAM 02/16/2022 Hill Santamaria MD EDG IR COLON SURGERY JOINT REPLACEMENT Left hip EYE SURGERY Both eyes cataracts TUBAL LIGATION ABDOMEN SURGERY VASCULAR SURGERY COLONOSCOPY COLOSTOMY Medical History Medical History Date Comments Arthritis Rheumatoid arthr itis Anxiety Irritable bowel syndrome Osteoarthritis Headache(784.0) occasional Hypoglycemia history of- no t been a problem in awhile COPD (chronic obstructive pu lmonary disease) (HCC) Hyperlipidemia Basal cell carcinoma of skin , unspecified 08/14/2018 Formatting of this note migh t be different from the original. Allergy Anemia Osteoporosis GERD (gastroesophageal reflux disease) Encounter for blood transfusion Cataract Depression Chronic kidney disease Colon polyp Family History Medical History Relation Name Comments Diabetes Brother Tim Nickerson Insulin no long er needed Cancer Father Janee Gonzalez Esopagal th en spread everwhere Colon Polyps Father Janee Gonzalez Esophageal Cancer Father Janee Gonzalez High Blood Pressure Father Janee Gonzalez High Cholesterol Father Janee Gonzalez Hypertension Father Janee Gonzalez Irritable Bowel Syndrome Father Janee Gonzalez Hearing Loss Mother Alvina Khan Sudden hearing loss Arthritis Paternal Grandmother Janee pinon Diabetes Paternal Grandmother Janee Gonzalez Hearing Loss Paternal Grandmother Janee Gonzalez Had to wear hearing aids. Kidney Disease Paternal Grandmother Janee Gonzalez O Anesth Problems Neg Hx Relation Name Status Comments Brother Tim Nickerson Alive Father Janee Gonzalez Mother Alvina Khan Alive Paternal Grandmother Janee Gonzalez Social History Tobacco Use Types Packs/Day Years [...] on file Sexual Orientation Not on file Obstetrics History Last Filed Vital Signs Vital Sign Reading Time Taken Comments Blood Pressure 92/60 09/11/2024 10:43 AM EDT Pulse 92 08/26/2024 8:58 AM EDT Temperature 36.7 C (98.1 F) 09/11/2024 10:43 AM EDT Respiratory Rate 16 06/07/2023 2:19 PM EDT Oxygen Saturation 100% 06/07/2023 2:19 PM EDT Inhaled Oxygen Concentration - - Weight 48.5 kg (107 lb) 09/11/2024 10:43 AM EDT Height 142.2 cm (4' 8 ) 09/11/2024 10:43 AM EDT Body Mass Index 23.99 09/11/2024 10:43 AM EDT Plan of Treatment Upcoming Encounters Date Type Department Care Team (Late st Contact Info) Description 10/30/2024 9:40 AM EDT Office Visit [facility] [address] [phone] Tiago Franz MD [address] [place] [address] [id number] 01/20/2025 3:15 PM EST Office Visit [facility] Nephrology [place] [address] [place] [address] Crystal Osborne MD [address] [facility] [address] [place] [address] 09/25/2025 10:00 AM EDT Appointment [facility] [address] [place] [address] June[employer]maris NETWORK ACCOUNT MANAGER [address] [facility] [address] [place], [place] [id number] 09/25/2025 11:00 AM EDT Office Visit [facility] [address] [facility] [address] [place] [address] JuneAmaris APRN [address] [place] [address] [address] [place] [address] Health Maintenance Due Date Last Done Comments Zoster (1 of 2) 1981 HPV/Pap Cotest 1992 FIT 10/04/2007 Sigmoidoscopy 10/04/2007 Virtual Colonography 10/04/2007 COVID-19 Vaccine (3 - Moderna risk series) 12/08/2020 11/10/2020, 10/08/2020 RSV or 60+ (1 - Risk 60-74 years 1-dose series) 2022 Cologuard 05/19/2023 05/18/2020, 05/18/2020 Influenza Vaccine (#1) 2024 , 11/26/2021, 04/15/2017 (Declined), Additional history exists Wellness Exam Medicare 12/16/2024 12/16/2023 Cervical Cancer Screening 03/30/2025 Pap Smear 03/30/2025 03/30/2022, 12/0 09/2013 (Declined), 02/13/2009 Breast Cancer Screening 04/16/2025 04/17/19, 04/27/2021, 11/15/2018, Additional history exists Low Dose Lung Cancer Screening 08/30/2025 08/30/2024, 08/30/2023, 07/27/2021 Colon Cancer Screening 06/06/2028 Colonoscopy 06/06/2028 06/07/2023, 03/29/2018 DTaP/TDaP/Td (3 - Td or Tdap) 10/02/2031 10/01/2021, 09/21/2011 Hepatitis C Screening Completed 09/03/2016 Pneumococcal Vaccine 50+ Completed 07/09/2021 Hepatitis B Vaccine Aged Out No longe r eligible based on patient's age to complete this topic Meningococcal B Vaccine Aged Out No l onger eligible based on patient's age to complete this topic Goals Goal Patient Goal Type Associated Problems Recent Progress Patient-Stated? Author Eat better, exercise, reach an ideal body weight General No Vanna Rooney RMA Stay Tobacco Free Lifestyle No Vanna Rooney RMA Medical Devices Implanted Type Area Catering Coordinator Device Identifier Shelf Expiration Date Model / Serial / Lot Lens Intraocular 24.5 Diopter Acrysof Iq 13.0mm Length 6.0mm Aspheric Optic 0 Degree Modified-L Haptic - [id number] Implanted:Qty: 1 on 09/22/2011 by Mitesh Hammond MD at [facility] Left: Eye YE LAB:SURG 02/14/2016 [id number] / [id number] / Lens Intraocular 23.5 Diopter Acrysof Iq 13.0mm Length 6.0mm Aspheric Optic 0 Degree Modified-L Haptic - [id number] Implanted:Qty: 1 on 10/06/2011 by Mitesh Hammond MD at [facility] YE LAB:SURG 06/13/2016 [id number] / [id number] / Procedures Procedure Name Priority Date/Time Associated Diagnosis Comments COMPREHENSIVE METABOLIC PANEL Routine 09/20/2024 8:42 AM EDT Decreased potassium in the blood VITAMIN D 25 HYDROXY Routine 09/11/2024 11:17 AM EDT Rheumatoid arthritis, involving unspecified site, unspecified whether rheumatoid factor present (HCC) Vitamin B 12 deficiency Gastroesophageal reflux disease without esophagitis Immunocompromised Atherosclerosis of [place] artery of both lower extremities with intermittent [...] artery calcification seen on CT scan VITAMIN B12/ FOLIC ACID Routine 09/11/2024 11:17 AM EDT Rheumatoid arthritis, involving unspecified site, unspecified whether rheumatoid factor present (HCC) Vitamin B 12 deficiency Gastroesophageal reflux disease without esophagitis Immunocompromised Atherosclerosis of [place] artery of both lower extremities with intermittent [...] reflux disease without esophagitis Immunocompromised Atherosclerosis of [place] artery of both lower extremities with intermittent [...] reflux disease without esophagitis Immunocompromised Atherosclerosis of [place] artery of both lower extremities with intermittent [...] reflux disease without esophagitis Immunocompromised Atherosclerosis of [place] artery of both lower extremities with intermittent [...] reflux disease without esophagitis Immunocompromised Atherosclerosis of [place] artery of both lower extremities with intermittent [...] Coronary artery calcification seen on CT scan CT LUNG CANCER SCREENING LOW DOSE Routine 08/30/2024 11:35 AM EDT Screening for malignant neoplasm of respiratory organ Personal history of tobacco use, presenting hazards to health AR US LOWER EXTREMITY ARTERIAL DUPLEX COMPLETE Routine 08/23/2024 9:57 AM EDT PAD (peripheral artery disease) Claudication of lower extremity with history of revascularization COLONOSCOPY Routine 06/07/2023 1:47 PM EDT Weight loss Nausea MM MAMMO DIGITAL YOVANY SCREEN BILAT Routine 04/17/2023 9:09 AM EST Unintended weight loss Encounter for screening mammogram for breast cancer FIELD HUMAN RESOURCES MANAGER CYTOLOGY REQUEST (PAP ONLY) Routine 03/30/2022 11:44 AM EST Pap smear for cervical cancer screening COLOGUARD Routine 05/18/2020 10:58 AM EDT Screening for colon cancer HCV ANTIBODY SCREEN W/ REFLEX Routine 09/03/2016 9:20 AM EDT Need for hepatitis C screening test from Last 3 Months or Most Recently Relevant to Health Maintenance Results * (ABNORMAL) COMPREHENSIVE METABOLIC PANEL (09/20/2024 8:42 AM EDT) Only the most recent of2 resultswithin the time period is included. Sodium 143 136 - 145 mmol/L 09/20/2024 [...] 09/20/2024 4:30 PM EDT [facility] Bili Total 0.3 0.2 - 1.3 mg/dL 09/20/2024 4:30 PM EDT [facility] ALT 12 <=41 U/L 09/20/2024 4:30 PM EDT [facility] AST 21 <=40 U/L 09/20/2024 4:30 PM EDT [facility] Alk Phos 59 36 - 123 U/L 09/20/2024 4:30 PM EDT [facility] eGFR (CKD-EPIcr 2020) 43(L) >=60 mL/min/1.7 3 m2 09/20/2024 4:30 PM EDT [facility] Comment:Estimated GFR was ca lculated using the CKD-EPIcr (2020) equation refit without race. The equation is recommended by the National Kidney Foundation - [place] [employer] of Nephrology Task Force. Blood VENOUS BLOOD / Unknown Venipuncture / Unknown 09/20/2024 8:42 AM EDT 09/20/2024 8:42 AM EDT us Patsy Hair MD CHEMISTRY ORDERABLES Final Res ult [facility] [address] [facility] , [place] [address] * (ABNORMAL) VITAMIN B12/ FOLIC ACID (09/11/2024 11:17 AM EDT) Vitamin B12 >1,600(H) 232 - 1,245 pg/mL 09/11/2024 5:04 PM EDT [facility] Folate >16.00 >=4.80 ng/mL 09/11/2024 5:04 PM EDT [facility] [employer], [facility] Blood VENOUS BLOOD / Unknown Venipuncture / Unknown 09/11/2024 11:17 AM EDT 09/11/2024 11:17 AM EDT Narrative [facility] - 09/11/2024 5:04 PM EDT Ingestion of eh doses of biotin (>5 mg/day) taken within 8 hours of drawing blood sample can interfere with this immunoassay test. us Patsy Hair MD CHEMISTRY ORDERABLES Final Res ult Performing Organization Address [facility] de Phone Number [facility] [employer] [address] [place] [address] , [place] [address] * TSH REFLEX TO FT4 (09/11/2024 11:17 AM EDT) Pathologist [facility] [place] TSH Reflex 1.730 0.270 - 4.200 mcIU/mL 09/11/2024 3:17 PM EDT [facility] [employer] Blood VENOUS BLOOD / Unknown Venipuncture / Unknown 09/11/2024 11:17 AM EDT 09/11/2024 11:17 AM EDT Narrative [facility] [employer] - 09/11/2024 3:17 PM EDT Ingestion of eh doses of biotin (>5 mg/day) taken within 8 hours of drawing blood sample can interfere with this immunoassay test. us Patsy Hair MD CHEMISTRY ORDERABLES Final Res ult Performing Organization Address [facility] de Phone Number [facility] [employer] [address] [place] [address] , [place] [address] * VITAMIN D 25 HYDROXY (09/11/2024 11:17 AM EDT) Pathologist [facility] Vit D 25 OH 44.0 30.0 - 150.0 ng/mL 09/11/2024 5:04 PM EDT [employer] Comment: Preferred: >= 30 ng/mL Insufficient: 21-29 [...] ORDERABLES Final Res ult Performing Organization Address [facility] Co de Phone Number [facility] [address] [facility] , [place] [address] * (ABNORMAL) CBC WITH DIFF (09/11/2024 11:17 AM EDT) [facility] WBC 7.6 3.7 - 10.3 x10(3)/mcL 09/11/2024 [...] 2:35 PM EDT [facility] [place] Percent 6.2 % 09/11/2024 2:35 PM EDT [facility] Eos Percent 3.2 % 09/11/2024 2:35 PM EDT [facility] [employer], [facility] Baso Percent 0.5 % 09/11/2024 2:35 PM EDT [facility] Neut # 4.1 1.6 - 6.1 x10(3)/[facility] 09/11/2024 2:35 PM EDT [facility] [employer], [facility] Comment:Neutrophils equals s egs plus bands IMMGRAN# 0.0 0.0 - 0.1 x10(3)/[facility] 09/11/2024 2:35 PM EDT [facility] [employer], [facility] Comment:Automated count of m etamyelocytes, myelocytes and promyelocytes. An absolute IG <0.1 is reported as 0.0. Lymph # 2.8 1.2 - 3.9 x10(3)/[facility] 09/11/2024 2:35 PM EDT [facility] [employer], [facility] [place] # 0.5 0.3 - 0.9 x10(3)/[facility] 09/11/2024 2:35 PM EDT [facility] Eos# 0.2 0.0 - 0.5 x10(3)/[facility] 09/11/2024 2:35 PM EDT [facility] [employer], [facility] Baso # 0.0 0.0 - 0.1 x10(3)/[facility] 09/11/2024 2:35 PM EDT [facility] [employer], [facility] Blood VENOUS BLOOD / Unknown Venipuncture / Unknown 09/11/2024 11:17 AM EDT 09/11/2024 11:17 AM EDT us Patsy Hair MD HEMATOLOGY ORDERABLES Final Re sult [facility] [address] [facility] , [place] [address] * LIPID SCREEN (09/11/2024 11:17 AM EDT) Cholesterol 189 <200 mg/dL 09/11/2024 3:17 PM EDT [facility] [employer], [facility] Comment: < 200 Desirable 200 - 239 Borderline High >= 240 High Triglyceride 93 <150 mg/dL 09/11/2024 3:17 PM EDT [facility] [employer], [facility] Comment: < 150 Normal 150 - 199 Borderline High 200 - 499 High >= 500 Very High HDL 86 >=40 mg/dL 09/11/2024 3:17 PM EDT [facility] Comment: > 60 Optimal 40 - 60 Acceptable < 40 Low LDL Calculated 87 <100 mg/dL 09/11/2024 3:17 PM EDT [facility] Comment: < 100 Optimal 100 - 129 Near or above optimal 130 - 159 Borderline High 160 - 189 High >= 190 Very High The National Institutes of Health (NIH) equation is used for all lipid panels that report calculated LDL (LDL-C). Non-HDL-C Calculated 103 <=129 mg/dL 09/11/2024 3:17 PM EDT [facility] Comment: <130 Desirable 130-159 Above Desirable 160-189 Borderline High 190-219 High >= 220 Very High Fasting Specimen? Yes None 025 3:17 PM EDT [facility] Blood VENOUS BLOOD / Unknown Venipuncture / Unknown 09/11/2024 11:17 AM EDT 09/11/2024 11:17 AM EDT us Patsy Hair MD CHEMISTRY ORDERABLES Final Res ult [facility] [employer] [address] [facility] , [place] [address] * CT LUNG CANCER SCREENING LOW DOSE [...] contact the office of the ordering clinician. [email or web address] Narrative 08/30/2024 11:[address] LUNG CANCER SCREENING LOW DOSE 08/30/2024 11:35 AM CLINICAL HISTORY: Asymptomatic patient meeting NCCN high risk criteria for lung screening. Z12.2-Encounter for screening for malignant neoplasm of respiratory zpxwza-KWI-00-CM Z87.891-Personal history of nicotine hjjnfvntho-GXR-24-CM. COMPARISON: 08/30/2023 07/27/2021 PROCEDURE COMMENTS: Noncontrast, low-dose, multidetector CT chest per department protocol. Interactive 3-D postprocessing done by the reviewing physician on a SYNGO workstation, using Maximum intensity projections (MIPS) and SYNGO LUNG CAD for improved lesion detection. Ramos images archived to PACS. Dose 1 : CT DLP Total : 30.7 mGycm DLP Spiral Max : 30.7 mGycm Maximum CTDI Vol : 0.9 mGy SSDE : 1.278 mGy SSDE Diameter : 26.2 cm SSDE Source : [employer] FINDINGS: No suspicious pulmonary nodule. No acute inflammatory process. Heart and mediastinum unremarkable. There is a ventral hernia in the upper abdomen containing colon. No definite obstruction or incarceration. Coronary artery calcification: Moderate. FOLLOW-UP CODE: Lung-RADS Category 1: Negative: No nodule or definitely benign nodule(s). Continued ANNUAL LOW-DOSE SCREENING CT SCAN (IMG 14195) suggested if age <78. Lung-RADS Modifier S: Clinically Significant or Potentially Significant Findings (Non Lung Cancer) Procedure Note Jose Calix MD - 08/30/2024 CT LUNG CANCER SCREENING LOW DOSE 08/30/2024 11:35 AM CLINICAL HISTORY: Asymptomatic patient meeting NCCN high risk criteria forlung screening. Z12.2-Encounter for screening for malignant neoplasm ofrespiratory wazdut-YAY-84-CM Z87.891-Personal history of nicotine qpbzgsessb-TRH-01-CM. COMPARISON: 08/30/2023 07/27/2021 PROCEDURE COMMENTS: Noncontrast, low-dose, multidetector CT chest perdepartment protocol. Interactive 3-D postprocessing done by the reviewing physicianon a SYNGO workstation, using Maximum intensity projections (MIPS) and SYNGOLUNG CAD for improved lesion detection. Ramos images [...] Continued ANNUAL LOW-DOSE SCREENING CT SCAN (IM [id number])suggested if age <78. Lung-RADS Modifier S: Clinically [...] please contactthe office of the ordering clinician. [email or web address] Patsy Hair MD [facility] ORDERABLES Final Result * [facility] LOWER EXTREMITY ARTERIAL DUPLEX COMPLETE (08/23/2024 9:57 [...] flow pattern is noted in the left CORRECTIONAL FACILITY NURSE and SFA. Monophasic doppler flow pattern in the BRADLEY LINEBACKER CREWMEMBER and [place] arteries. * Arterial atherosclerosis noted [...] flow pattern is noted in the left CORRECTIONAL FACILITY NURSE and SFA. Monophasic doppler flow pattern in the BRADLEY LINEBACKER CREWMEMBER and [place] arteries. * Arterial atherosclerosis noted [...] Occlusion of theleft peroneal artery. us Amaris Sommer NETWORK ACCOUNT MANAGER IMG VASCULAR ORDERABLES Final R esult * COLONOSCOPY (06/07/2023 1:47 PM EDT) Anatomical Region Laterality Modality Endoscopy Narrative 06/07/2023 1:51 PM EDT Table formatting from the original result was not included. Findings One sessile, adenomatous-appearing polyp measuring 5-9 mm in the ascending colon; performed cold snare with complete en bloc removal and retrieved specimen Recommendation Await pathology results - Repeat colonoscopy likely in 5 years Indication Nausea, Weight loss Staff Staff Role Desmond Palomares MD Performing Provider Kayla Gomez RN Director Instructional Material Terell Aiken CRNA CRNA Medications See Anesthesia Record. Preprocedure A history and physical has been performed, and patient medication allergies have been reviewed. The patient's tolerance of previous anesthesia has been reviewed. The risks and benefits of the procedure and the sedation options and risks were discussed with the patient. All questions were answered and informed consent obtained. ASA 3 - Patient with severe systemic disease Details of the Procedure The patient underwent monitored anesthesia care, which was administered by an anesthesia professional. The patient's blood pressure, heart rate, level of consciousness, oxygen, respirations, ECG and ETCO2 were monitored throughout the procedure. A digital rectal exam was performed. The scope was introduced through the anus and advanced to the cecum. Retroflexion was performed in the rectum. Bowel prep was adequate. The patient experienced no blood loss. The procedure was not difficult. The patient tolerated the procedure well. There were no apparent adverse events. Patient provided education and educated on specific discharge instructions. Patient educated on medications given during the procedure and new medications for discharge. Patient verbalizes understanding of discharge education. Patient stable and awaiting transport for discharge. Events Procedure Events Event Event Time ENDO SCOPE IN TIME 06/07/2023 1:35 PM ENDO CECUM REACHED 06/07/2023 1:38 PM ENDO SCOPE OUT TIME 06/07/2023 1:46 PM Specimens ID Type Source Tests Collected by Time 1 : Ascending colon polypectomy via cold snare Tissue Large Intestine, Right/Ascending Colon PATHOLOGY TISSUE REQUEST Desmond Palomares MD 06/07/2023 1341 Anesthesia Event Time In Patient In - Proc. Room 01:27 PM Patient Out - Proc. Room 01:47 PM us Desmond Palomares MD ENDOSCOPY PROCEDURE ORDERABL ES Final Result * MM MAMMO DIGITAL YOVANY SCREEN BILAT (04/17/2023 9:09 AM EST) Anatomical Region Laterality Modality Breast Bilateral Mammography 04/17/2023 10:2 0 AM EST Impressions 04/17/2023 10:20 AM EST Negative ([id number]-Bqiantvb-5) ~ RECOMMENDATION: Routine screening mammogram in 1 year. ~ DISCLAIMER * Any patient with a palpable abnormality, unexplained by breast imaging, should be managed on clinical basis by the attending physician. * Breast imaging has a false negative rate of 15%. * The patient was notified by mail of the results of this examination. *The patient's information was entered into a reminder system with a target due date for the next mammogram, in accordance with the [place] [employer] and the Society of Breast Imaging recommendations. Narrative 04/17/2023 10:20 AM EST Procedure:MM MAMMO DIGITAL YOVANY SCREEN BILAT ~ Reason for exam: screening, asymptomatic. R63.4-Abnormal weight pxjh-TZR-67-CM Z12.31-Encounter for screening mammogram for malignant neoplasm of rvdget-DVO-67-CM ~ MM MAMMO DIGITAL YOVANY SCREEN BILAT Bilateral CC and MLO view(s) were taken. There are scattered fibroglandular densities. Prior study comparison: Compared with prior studies the most recent being 04/27/21, 11/15/18 No mammographic evidence of malignancy. ~ Procedure Note mAparo Ugalde MD - 04/17/2023 Procedure:MM MAMMO DIGITAL YOVANY SCREEN BILAT ~ Reason for exam: screening, asymptomatic. R63.4-Abnormal weight koji-IWR-01-CM Z12.31-Encounter for screening mammogram for malignant neoplasm of mfvzxa-LXM-42-CM ~ MM MAMMO DIGITAL YOVANY SCREEN BILAT Bilateral CC and MLO view(s) were taken. There are scattered fibroglandular densities. Prior study comparison: Compared with prior studies the most recentbeing 04/27/21, 11/15/18 No mammographic evidence of malignancy. ~ IMPRESSION: Negative (CXB-Eeyhoasb-9) ~ RECOMMENDATION: Routine screening mammogram in 1 year. ~ DISCLAIMER * Any patient with a palpable abnormality, unexplained by breast imaging, should be managed on clinical basis by the attending physician. * Breast imaging has a false negative rate of 15%. * The patient was notified by mail of the results of this examination. *The patient's information was entered into a reminder system with atarget due date for the next mammogram, in accordance with the [place] [employer] and the Society of Breast Imaging recommendations. us Patsy Hair MD IM MAMMOGRAPHY ORDERABLES Fin al Result * (ABNORMAL) FIELD HUMAN RESOURCES MANAGER CYTOLOGY REQUEST (PAP ONLY) (03/30/2022 11:44 AM EST) CASE REPORT Gynecologic Cytology Report Case: [id number] Authorizing Provider: Patsy Hair MD Collected: 03/30/2022 1144 Ordering Location: [facility] Received: 03/30/2022 1144 First Screen: Noah Fermin, NANCY Pathologist: Shelli Cunningham MD Specimen: LIQUID-BASED PAP - CERVICAL/ENDOCERV ICAL, Cervix, Endocervical 03/31/2022 12:50 PM EST [facility] PAP FINAL DIAGNOSIS Low grade squamous intraepithelial lesion(A) 03/31/2022 12:50 PM EST [facility] at 1250 EST MICROSCOPIC DESCRIPTION Microscopic examination is performed and the findings corroborate the diagnosis. 03/31/2022 12:50 PM EST [facility] PAP SMEAR ADEQUACY Satisfactory for evaluation 03/31/2022 12:50 PM EST [facility] ENDOCERVICAL T-ZONE Transformation zone absent. 03/31/2022 12:50 PM EST [facility] EMBEDDED IMAGES 12:50 PM EST [facility] PAP DISCLAIMER The Pap Smear is a screening test that aids in the detection of cervical cancer and cancer precursors. Both false positive and false negative results can occur. The test should be used at regular intervals, and positive results should be confirmed before definitive therapy. Processed using the ThinPrep Gas Pumping Station Helper Automated cytology screening device (Leostream). 03/31/2022 12:50 PM EST [facility] Thin Prep ENDOCERVICAL STRUCTURE / Unknown 03/30/2022 11:44 AM EST 03/30/2022 11:44 AM EST us Patsy Hair MD CYTOLOGY ORDERABLES Final Resu lt [facility] [address] [place] [address] [phone] * COLOGUARD (05/18/2020 10:58 AM EDT) COLOGUARD CLINICAL REPORT Negative Not Applicable [facility] Comment: A negative result indicates a low likelihood that a colorectal cancer (CRC) or an advanced adenoma (adenomatous polyps with more advanced pre-malignant features) is present. The chance that a person with a negative Cologuard test has a colorectal cancer is less than 1 in 1500 (negative predictive value >99.9%) or has an advanced adenoma is less than 5.3% (negative predictive value 94.7%). These data are based on a prospective cross-sectional screening study of 10,000 individuals at average risk for colorectal cancer who were screened with both Cologuard and colonoscopy. (Flako Alexander et al, N Engl J Med 2014;370(14):2697-7843) The normal value (reference range) for this assay is negative. COLOGUARD RE-SCREENING RECOMMENDATION: Periodic routine colorectal cancer screening is an important part of preventive healthcare for asymptomatic persons at average risk for colorectal cancer. Following a negative Cologuard result, the [place] [employer] Society and U.S. Multi-Society Task Force screening guidelines recommend a Cologuard re-screening interval of 3 years. References: [place] [employer] Society (ACS). Colorectal cancer prevention and early detection. [place], [place]: [place] [employer] Society; [updated 2015Jun 06]. https://www.cancer.org/cancer/jxdcw-eoiiwz-jziokc/vvviizahz-iyeuhpqyt-sqxidqn/ac s-rec ommendations.html. Accessed October 13, 2017; Karl DK, Efrain LYN, Isacc DOBBS, Colorectal Cancer Screening: Recommendations for Physicians and Patients from the U.S. Multi-Society Task Force on Colorectal Cancer Screening, Am J Gastroenterology 2017; 112:4740-7998. TEST TYPE: Composite algorithmic analysis of stool DNA-biomarkers with hemoglobin immunoassay. Quantitative values of individual biomarkers are not reportable and are not associated with individual biomarker result reference ranges. PRECAUTIONS AND LIMITATIONS: Cologuard is intended for colorectal cancer screening of adults of either sex, 45 years or older, who are at average-risk for colorectal cancer (CRC). Cologuard has been approved for use by the U.S. FDA. Cologuard may produce a false negative or false positive result. A negative Cologuard test result does not guarantee the absence of CRC or advanced adenoma (pre-cancer). Patients with a negative Cologuard test result should be advised to continue participating in a colorectal cancer screening program. The screening interval for Cologuard is currently recommended at an interval of every 3 years by the [place] [employer] Society and U.S. Multi-Society Task Force. A false positive result occurs when Cologuard produces a positive result, even though a colonoscopy may not find colorectal cancer or precancerous polyps. The performance of Cologuard has been established in a cross sectional study (i.e., single point in time) of average-risk adults aged 50-84. Cologuard performance in patients ages 45 to 49 years was estimated by sub-group analysis of near-age groups. Cologuard performance data in a 10,000 patient pivotal study using colonoscopy as the reference method can be accessed at the following location: www.[employer].SeeMore Interactive/results. Additional description of the Cologuard test process, warnings and precautions can be found at www.cologuardtest.com. Rx only. Stool specimen (specimen) 05/18/2020 10:58 AM EDT 05/19/2020 5:43 PM EDT us Patsy Hair MD [employer] [facility] - ORDERABLES Fin al Result [employer] [address] [place] [address], [facility] [employer] [facility] [place] [address] * HEPATITIS C ANTIBODY - SCREENING (09/03/2016 9:20 AM EDT) Hep C Ab Negative Negative [facility] Blood specimen (specimen) 09/03/2016 9:20 AM EDT 09/03/2016 3:54 PM EDT us Patsy Hair MD HEMATOLOGY ORDERABLES Final Re sult [place] [place] [address] from Last 3 Months or Most Recently Relevant to Health Maintenance Insurance DUAL COMPLETE HMO [place] DUAL COMPLETE O [place] Care Teams Forestry Consultant Relationship Specialty Start Date End Date Patsy Hair MD [address] [id number] PCP - General Family Medicine 07/19/13 Crystal Osborne MD [address] [phone] Internal Medicine-Nephrology 12/06/23
--- OUTSIDE RECORDS SUMMARY | 2024-10-04 12:16 | XMS_ITS | Encounter Summary ---
Author Organization [place] [address] Care Team Providers Care Can Striper Name Role Phone Patsy Rojas MD Primary Care Provider [phone] Crystal Osborne MD Unavailable [phone] Reason for Visit * Reason Onset Date Comments Relaying Information 08/23/2024 pt stating has had cramps in legs and feet at night time for the last 3 week/ pt is taking the potassium and looking for advice Encounter Details Date Type Department Care Team (Late st Contact Info) Description 08/23/2024 [facility]phone [facility] [address] [place] [address] Patsy Rojas MD [address] [place] [address] Relaying Information (pt stating has had cramps in legs and feet at night time for the last 3 week/ pt is taking the potassium and looking for advice ) Social History Tobacco Use Types Packs/Day Years [...] Refills Last Filled Start Date End Date cyclobenzaprine (FLEXERIL) 10 mg Oral Tablet Take 1 Tablet by mouth every 8 hours as needed for Muscle spasms for up to 30 days. 90 Tablet 1 08/23/2024 09/11/2024 documented in this encounter Miscellaneous Notes * Telephone Encounter - Becca Dinh MA - 08/23/2024 5:40 PM EDT Pt notified * Addendum Note - Patsy Rojas MD - 08/23/2024 5:35 PM EDTAddended by: PATSY ROJAS on: 08/23/2024 05:35 PM Modules accepted: Orders * Telephone Encounter - Patsy Rojas MD - 08/23/2024 5:35 PM EDT Med sent * Telephone Encounter - Héctor Garcia - 08/23/2024 10:11 AM EDT Select the most appropriate reason for this telephone message: Relaying Information Relaying Information Who is Calling: Patient What information is the caller relaying:pt stating has had cramps in legs and feet at night time for the last 3 week/ pt is taking the potassium and looking for advice Further follow-up needed? Yes Return Method of Communication:Phone call Additional Information:N/A documented in this encounter Plan of Treatment Upcoming Encounters Date Type Department Care Team (Late st Contact Info) Description 10/30/2024 9:40 AM EDT Office Visit [facility] [place] [address] [place] [address] Tiago Franz MD [address] [place] [address] 01/20/2025 3:15 PM EST Office Visit [facility] Nephrology Amandeep [address] [place] [address] Crystal Osborne MD [address] [facility] [address] [place] [address] 09/25/2025 10:00 AM EDT Appointment [facility] [address] [place] [address] Amaris Sommer APRN [address] [facility] [address] [place] [address] 09/25/2025 11:00 AM EDT Office Visit [facility] [address] [place] [address] MayAmaris APRN [address] [facility] [address] [address] [place] [address] documented as of this encounter Goals Goal Patient Goal Type Associated Problems Recent Progress Patient-Stated? Author Eat better, exercise, reach an ideal body weight General No Vanna Rooney RMA Stay Tobacco Free Lifestyle No Vanna Rooney RMA documented as of this encounter Visit Diagnoses Not on filedocumented in this encounter Care Teams Can Striper Relationship Specialty Start Date End Date Patsy Rojas MD [address] [place] [address] PCP - General Family Medicine 07/19/13 Crystal Osborne MD [address] [facility] [address] [place] [address] Internal Medicine-Nephrology 12/06/23 documented as of this encounter
--- OUTSIDE RECORDS SUMMARY | 2024-10-04 12:16 | XMS_ITS | Encounter Summary ---
Author Organization [place] [address] Care Team Providers Care Meat Specialist Name Role Phone Patsy Hair MD Primary Care Provider [phone] Crystal Osborne MD Unavailable [phone] Encounter Details Date Type Department Care Team (Late st Contact Info) Description 09/20/2024 Results Follow-Up [facility] [address] [place] [id number] Patsy Hair MD [address] [place] [address] COMPREHENSIVE METABOLIC PANEL Social History Tobacco Use Types Packs/Day Years [...] 9:40 AM EDT Office Visit [facility] [place] [address] [place] [address] Tiago Franz MD [address] [facility] [place] [id number] 01/20/2025 3:15 PM EST Office Visit [facility] Nephrology Amandeep [address] [place] [address] Crystal Osborne MD [address] [facility] [address] [place] [address] 09/25/2025 10:00 AM EDT Appointment [facility] [address] [place] [address] Amaris Sommer APRN [address] [facility] [address] [address] 09/25/2025 11:00 AM EDT Office Visit [facility] [address] [place] [address] Amaris Sommer APRN [address] [facility] [address] [address] [place], [place] [id number] documented as of this encounter Goals Goal Patient Goal Type Associated Problems Recent Progress Patient-Stated? Author Eat better, exercise, reach an ideal body weight General No Vanna Rooney RMA Stay Tobacco Free Lifestyle No Vanna Rooney RMA documented as of this encounter Visit Diagnoses Not on filedocumented in this encounter Care Teams Meat Specialist Relationship Specialty Start Date End Date Patsy Hair MD [address] [place], [place] [id number] PCP - General Family Medicine 07/19/13 Crystal Osborne MD [address] [place] [address] [address] [place] [address] Internal Medicine-Nephrology 12/06/23 documented as of this encounter
--- NOTE | 2024-10-04 12:17 | XR_ITS ---
PROCEDURE INFORMATION: Exam: XR Chest Exam date and time: 10/04/2024 12:32 PM Age: 64 years old Clinical indication: Shortness of breath; Additional info: SOA TECHNIQUE: Imaging protocol: Radiologic exam of the chest. Views: 1 view. COMPARISON: CT HR CHEST X3 04/25/2024 2:22 PM FINDINGS: Lungs: Increased markings in the lungs suggestive of interstitial lung disease. Pleural spaces: Unremarkable. No pleural effusion. No pneumothorax. Heart/Mediastinum: Unremarkable. No cardiomegaly. Bones/joints: Healed left rib fractures. Arthritic changes in the shoulders with a questionable right rotator cuff tear. IMPRESSION: Interstitial lung disease.
--- OUTSIDE RECORDS SUMMARY | 2024-10-04 12:17 | XMS_ITS | Encounter Summary ---
Author Organization [facility] Address [address] [place] [address] Care Team Providers Care Fiber Artist Name Role Phone Patsy Hair MD Primary Care Provider Crystal Osborne MD Unavailable [phone] Reason for Visit * Reason Onset Date Comments Medication Refill 09/09/2024 Encounter Details Date Type Department Care Team (Late st Contact Info) Description 09/09/2024 Refill [facility] Nephrology [place] [address] [facility] [address] [place] [address] Crystal Osborne MD [address] [place] [address] Medication Refill Social History Tobacco Use Types [...] Refills Last Filled Start Date End Date potassium chloride (KLOR-CON M) 20 mEq Oral Tab Sust.Rel. Particle/CrystalInd ications:Hypokalemi a Take 1 Tablet by mouth daily. 90 Tablet 3 09/09/2024 documented in this encounter Plan of Treatment Upcoming Encounters Date Type Department Care Team (Late st Contact Info) Description 10/30/2024 9:40 AM EDT Office Visit [facility] [place] [address] [place] [address] Tiago Franz MD [address] [place] [address] [place] [address] 01/20/2025 3:15 PM EST Office Visit [facility] Nephrology Amandeep [address] [place] [address] Crystal Osborne MD [address] [place] [address] [address] [place] [address] 09/25/2025 10:00 AM EDT Appointment [facility] [address] [facility] [address] [place] [address] June, Amaris Camacho [employer] ASSEMBLER [address] [facility] [address] [place], [place] [id number] 09/25/2025 11:00 AM EDT Office Visit [facility] [address] [facility] [address] [place] [address] Amaris Sommer APRN [address] [facility] [address] [place], [place] [id number] documented as of this encounter Goals Goal Patient Goal Type Associated Problems Recent Progress Patient-Stated? Author Eat better, exercise, reach an ideal body weight General No Vanna Rooney RMA Stay Tobacco Free Lifestyle No Vanna Rooney RMA documented as of this encounter Visit Diagnoses Diagnosis Hypokalemia Hypopotassemia documented in this encounter Discontinued Medications Medication Sig Discontinue Reason Start Date End Da te potassium chloride (KLOR-CON M) 20 mEq Oral Tab Sust.Rel. Particle/CrystalIndicati ons:Hypokalemia Take 1 Tablet by mouth daily. Reorder 08/28/2023 09/09/2024 documented as of this encounter Care Teams Fiber Artist Relationship Specialty Start Date End Date Patsy Hair MD [address] [place], [place] [id number] PCP - General Family Medicine 07/19/13 Crystal Osborne MD [address] [place] [address] Internal Medicine-Nephrology 12/06/23 documented as of this encounter
--- OUTSIDE RECORDS SUMMARY | 2024-10-04 12:17 | XMS_ITS | Encounter Summary ---
Author Organization [place] [address] Care Team Providers Care Dairy Inspector Name Role Phone Patsy Hair MD Primary Care Provider [phone] Crystal Osborne MD Unavailable [phone] Reason for Visit * Reason Onset Date Comments Referral 09/11/2024 Encounter Details Date Type Department Care Team (Late Contact Info) Description 09/11/2024 Telephone [facility] [address] [place] [address] Yulissa Conti, Clerical Staff Referral Social History Tobacco Use Types Packs/Day Years [...] Assessment Author No 04/06/2024 9:40 AM Winnie Pinot RMA * Is the person blind or does he/she have serious difficulty seeing even when wearing glasses? Answer Date of Assessment Author No 04/06/2024 9:40 AM Winnie Pinto RMA * Does this person have serious difficulty walking or climbing stairs? Answer Date of Assessment Author No 04/06/2024 9:40 AM Winnie Pinto RMAyaz * Does this person have difficulty dressing or bathing? Answer Date of Assessment Author No 04/06/2024 9:40 AM DOMO MillerWinnie ALESIA * Because of a physical, mental or [...] No 04/06/2024 9:40 AM DOMO Winnie Miller ALESIA documented in this encounter Miscellaneous Notes * Telephone Encounter - Yulissa Conti, Clerical Staff - 09/11/2024 1:46 PM EDT Left message to schedule an appointment per pcp referral documented in this encounter Plan of Treatment Upcoming Encounters Date Type Department Care Team (Late st Contact Info) Description 10/30/2024 9:40 AM EDT Office Visit [facility] [place] [address] [place] [address] Tiago Franz MD [address] [place] [id number] 01/20/2025 3:15 PM EST Office Visit [facility] Nephrology Amandeep [address] [place] [address] Crystal Osborne MD [address] [facility] [address] [place] [address] 09/25/2025 10:00 AM EDT Appointment [facility] [address] [facility] [address] [place] [address] MayAmaris SHIPWRIGHT SUPERVISOR [address] [facility] [address] [place] [address] 09/25/2025 11:00 AM EDT Office Visit [facility] [address] [facility] [address] [place] [address] Amaris Sommer APRN [address] [facility] [address] [place], [place] [id number] documented as of this encounter Goals Goal Patient Goal Type Associated Problems Recent Progress Patient-Stated? Author Eat better, exercise, reach an ideal body weight General No Vanna Rooney RMA Stay Tobacco Free Lifestyle No Vanna Rooney RMA documented as of this encounter Visit Diagnoses Not on filedocumented in this encounter Care Teams Dairy Inspector Relationship Specialty Start Date End Date Patsy Hair MD [address] [place], [place] [id number] PCP - General Family Medicine 07/19/13 Crystal Osborne MD [address] [facility] [address] [place] [address] Internal Medicine-Nephrology 12/06/23 documented as of this encounter
--- OUTSIDE RECORDS SUMMARY | 2024-10-04 12:17 | XMS_ITS | Encounter Summary ---
Author Organization [facility] [address] Care Team Providers Care Sanitizer Name Role Phone Patsy Hair MD Primary Care Provider [phone] Crystal Osborne MD Unavailable [phone] Encounter Details Date Type Department Care Team (Latest Contact Info) Description 09/18/2024 Travel Social History Tobacco Use Types Packs/Day [...] 9:40 AM EDT Office Visit [facility] [place] [address] [place] [address] Tiago Franz MD [address] [facility] [place] [address] 01/20/2025 3:15 PM EST Office Visit [facility] Nephrology Amandeep [address] [place] [address] Crystal Osborne MD [address] [facility] [address] [place] [address] 09/25/2025 10:00 AM EDT Appointment [facility] [address] [place] [address] [address] [place] [address] Amaris Sommer APRN [address] [place] [address] [address] [place] [address] 09/25/2025 11:00 AM EDT Office Visit [facility] [address] [facility] [address] [place] [address] Amaris Sommer APRN [address] [place] [address] [address] [place] [address] documented as of this encounter Goals Goal Patient Goal Type Associated Problems Recent Progress Patient-Stated? Author Eat better, exercise, reach an ideal body weight General No Vanna Rooney RMA Stay Tobacco Free Lifestyle No Vanna Rooney RMA documented as of this encounter Visit Diagnoses Not on filedocumented in this encounter Care Teams Sanitizer Relationship Specialty Start Date End Date Patsy Hair MD [address] [place] [id number] PCP - General Family Medicine 07/19/13 Crystal Osborne MD [address] [address] Internal Medicine-Nephrology 12/06/23 documented as of this encounter
--- OUTSIDE RECORDS SUMMARY | 2024-10-04 12:17 | XMS_ITS | Encounter Summary ---
Author Organization [facility] Address [address] [place] [address] Care Team Providers Care Poultry Boner Name Role Phone Patsy Hair MD Primary Care Provider [phone] Reason for Visit * Reason Onset Date Comments Med Refill 03/30/2021 Encounter Details Date Type Department Care Team (Late st Contact Info) Description 03/30/2021 Refill [facility] [address] [place] [address] Yarelis Hutchison, PRODUCT TEST SPECIALIST, DNP [address] [address] Social History Tobacco Use Types Packs/Day Years Used Date Smoking Tobacco: Every Day Cigarettes Smokeless Tobacco: Never Alcohol Use Standard Drinks/Week Comments Never 0 (1 standard drink = 0.6 oz pure alcohol) Alcoholic Drinks/day: Occasional alcohol use PHQ-2 Answer Date Recorded Patient Health Questionnaire-2 Score 0 11/13/2020 Comments No Sex and Gender Information Value Date Recorded Sex Assigned at Female 05/12/2021 10:43 AM EDT Legal Sex Female 5:59 PM EDT Gender Identity Female 05/12/2021 10:43 AM EDT Sexual Orientation Straight 05/12/2021 10 :43 AM EDT documented as of this encounter Plan of Treatment Not on file documented as of this encounter Visit Diagnoses Not on filedocumented in this encounter Additional Health Concerns Assessment Noted Time A fall risk assessment has been complete d for the patient 11/23/2020 2:47 PM EDT documented as of this encounter Care Teams Poultry Boner Relationship Specialty Start Date End Date Patsy Hair MD [address] [place] [address] PCP - General 06/26/20 documented as of this encounter
--- OUTSIDE RECORDS SUMMARY | 2024-10-04 12:17 | XMS_ITS | Encounter Summary ---
Author Organization [place] [address] Care Team Providers Care Church History Teacher Name Role Phone Patsy Hair MD Primary Care Provider [phone] Crystal Osborne MD Unavailable [phone] Reason for Visit * Reason Onset Date Comments Results 09/15/2024 Lab result given Encounter Details Date Type Department Care Team (Late Contact Info) Description 09/15/2024 Results Follow-Up [facility] [address] [place] [address] Patsy Hair MD [address] [place] [address] CBC WITH DIFF, COMPREHENSIVE METABOLIC PANEL, LIPID SCREEN, Additional followed-up results: 3 Social History Tobacco Use Types Packs/Day Years [...] No 04/06/2024 9:40 AM Winnie Pinto Mei, VALEA * Is the person blind or does he/she have serious difficulty seeing even when wearing glasses? Answer Date of Assessment Author No 04/06/2024 9:40 AM Winnie Pinto Mei, VALEA * Does this person have serious difficulty walking or climbing stairs? Answer Date of Assessment Author No 04/06/2024 9:40 AM Winnie Pinto Mei VALEA * Does this person have difficulty dressing or bathing? Answer Date of Assessment Author No 04/06/2024 9:40 AM Winnie Pinto Mei, VALEA * Because of a physical, mental or [...] encounter Miscellaneous Notes * Telephone Encounter - Lisa Arriaga MA - 09/16/2024 3:43 PM EDT Images from the original note were not included. Select the most appropriate reason for this telephone message: Patient Calling for Results Patient called for results on Which Provider ordered the test? Dr Hair Date of test: Please call patient to make the appt for the lab to be rechecked. Advised patient of: abnormal result. Patient Instructions/ Questions: please call patient to schedule for labs to be rechecked. She states she did miss some doses of the potassium. Medications Ordered/Pended (if yes, list medication): No Medications/Orders Needed (if yes, list orders): No Pharmacy Location Verified: No Other: Results given to patient Low potassium is she taking her supplement? Needs 40meq for 3 days then back to normal. Recheck this week. CBC WITH DIFF; COMPREHENSIVE METABOLIC PANEL; LIPID SCREEN; TSH REFLEX TO FT4; VITAMIN B12/ FOLIC ACID (1 more orders) documented in this encounter Plan of Treatment Upcoming Encounters Date Type Department Care Team (Late st Contact Info) Description 10/30/2024 9:40 AM EDT Office Visit [facility] [place] [address] [place] [address] Tiago Franz MD [address] [facility] [address] [place] [id number] 01/20/2025 3:15 PM EST Office Visit [facility] Nephrology Amandeep [address] [place] [address] Crystal Osborne MD [address] [facility] [address] [place] [address] 09/25/2025 10:00 AM EDT Appointment [facility] 20 [facility] [address] [place] [address] [place] [address] 09/25/2025 11:00 AM EDT Office Visit [facility] [address] [facility] [address] [place] [address] [place] [address] [place] [address] documented as of this encounter Goals Goal Patient Goal Type Associated Problems Recent Progress Patient-Stated? Author Eat better, exercise, reach an ideal body weight General No Vanna Rooney RMA Stay Tobacco Free Lifestyle No Vanna Rooney RMA documented as of this encounter Visit Diagnoses Not on filedocumented in this encounter Care Teams Church History Teacher Relationship Specialty Start Date End Date Patsy Hair MD [address] [place] [address] PCP - General Family Medicine 07/19/13 Crystal Osborne MD [address] [facility] [address] [place] [address] Internal Medicine-Nephrology 12/06/23 documented as of this encounter
--- NOTE | 2024-10-04 12:19 | ED_ITS ---
<Statement entered by Roldan Mendez MD - 10/04/24 18:11> I consulted the KIM, and we discussed the complexity of the problems being addressed. I approved the treatment and management plan for this patient's care in the emergency department, thus performing a substantial portion of the medical decision making. Will MD Vanessa Discharge Plan Disposition Patient Disposition: Admitted Condition: Fair Clinical Impressions Clinical Impression: ILD (interstitial lung disease), Acute exacerbation of chronic obstructive airways disease Discharge ED Provider: Roldan Mendez General Adult HPI General Chief complaint: Shortness of Breath/Dyspnea Stated complaint: SOA Time Seen by Provider: 10/04/24 12:14 Mode of Arrival: EMS Source of Information: Patient Limitations: No Limitations History of Present Illness HPI narrative: 64-year-old female presents the emergency department via EMS for shortness of breath, that started last night, worsened today, with productive cough, patient denies any fever or chills, denies any recent sick contacts, denies any chest pain, denies any abdominal pain nausea vomiting constipation diarrhea, melena hematochezia hematemesis, no urinary type symptomatology, patient is a current everyday smoker, denies any alcohol or drug use, other past medical history is consistent with COPD, interstitial lung disease, rheumatoid arthritis, she is on anticoagulation therapy with Xarelto, GERD, MDD and MAUREEN. Initial triage vitals are notable for tachycardia, and SpO2 is 93 to 94% on room air, does place patient on 2 L nasal cannula. Please note that above description of symptoms, in this electronic medical record under categorization of recalled from ER triage doctor by RN are reflective of an initial nursing assessment, however, is not reflective of my full history and physical exam that was personally taken and clarified. Consequentially, this preceding description of symptoms, which may include the patient's categorized chief complaint in the EMR, do not reflect my personal clinical impression, and the ultimate description of history of present illness and patient stated complaints should be deferred to this section of the note. Unless stated otherwise or congruent with this section of the note, additional signs, symptoms, or incongruence should be interpreted as inaccurate with my clinical impression. Onset (ago): day(s) Related Data Home Medications ?Medication ?Instructions ?Recorded ?Confirmed adalimumab 40 mg/0.8 mL 40 mg SQ DIRECTED 5 10/04/24 subcutaneous pen kit (Humira Pen) albuterol sulfate 90 mcg/actuation 2 puff inhalation Q 4HP PRN Wheezing 10/04/24 10/04/24 aerosol inhaler alendronate 70 mg tablet 70 mg PO WEEKLY 10/04/24 atorvastatin 40 mg tablet 40 mg PO DAILY 10/04/2409/14 budesonide 160 mcg-glycopyr 9 2 puff inhalation BID 10/04/24 mcg-formot 4.8 mcg/actuation HFA inhaler (Breztri Aerosphere) cariprazine 1.5 mg capsule 1.5 mg PO DAILY 10/04/24 (Vraylar) clopidogrel 75 mg tablet 75 mg PO DAILY 10/04/2409/14 cyanocobalamin (vitamin B-12) 1,000 mcg IM MONTHLY 10/04/24 1,000 mcg/mL injection solution cyclobenzaprine 10 mg tablet 10 mg PO Q8HP PRN Muscle Spasm 10/04/24 10/04/24 doxepin 10 mg capsule 10 mg PO HS 10/04/24 5 escitalopram oxalate 20 mg tablet 20 mg PO DAILY 10/0410/04/24 famotidine 40 mg tablet 40 mg PO DAILY 10/04/2409/14 ferrous sulfate 325 mg (65 mg 325 mg PO DAILY 10/04/24 10/04/24 iron) tablet (FeroSul) furosemide 20 mg tablet 20 mg PO DAILY 10/04/2409/14 gabapentin 800 mg tablet 800 mg PO BID 10/04/2410/04 lidocaine 5 % topical patch 1 patch transdermal DAILY 10/04/24 10/04/24 mirtazapine 15 mg tablet 15 mg PO HS 10/04/24 5 omeprazole 40 mg capsule,delayed 40 mg PO DAILY 10/04/24 release potassium chloride 20 mEq 20 meq PO DAILY 10/04/24 tablet,extended release(part/cryst) prednisone 20 mg tablet 20 mg PO DIRECTED 5 10/04/24 rimegepant 75 mg disintegrating 75 mg PO DAILYP PRN Mi graine 10/04/24 10/04/24 tablet (Nurtec ODT) Headache rivaroxaban 2.5 mg tablet (Xarelto) 2.5 mg PO BID 09/1410/04/24 terbinafine HCl 250 mg tablet 250 mg PO DAILY 10/04/24 10/04/24 umeclidinium 62.5 mcg-vilanterol 1 inh inhalation ILEANA Y 10/04/24 10/04/24 25 mcg/actuation powdr for inhalation (Anoro Ellipta) Allergies Allergy/AdvReac Type Severity Reaction Status Date / Time No Known Allergies Allergy Verified 05/07/24 13:05 [facility] Disclaimer: The information contained in this section may have been updated after the patient was seen, as this information can be updated by other users. Medical History Influenza A Acute exacerbation of chronic obstructive pulmonary disease Acute viral syndrome Shortness of breath COPD with respiratory distress, acute Osteopenia Scoliosis Hypokalemia Abdominal pain Ventral incisional hernia without obstruction or gangrene Acute pain of left knee Abdominal pain JAMISON (acute kidney injury) Tobacco dependence in remission Nausea & vomiting Acute colitis Hypokalemia Urinary tract infection Acute exacerbation of chronic obstructive pulmonary disease (COPD) Low back pain Bilateral knee pain Right shoulder pain Acute exacerbation of chronic obstructive pulmonary disease Fibrosis of lung Smoking greater than 30 pack years Pulmonary emphysema ILD (interstitial lung disease) HSV-1 infection Urinary tract infection Pneumonia Urinary incontinence Osteoarthritis Rheumatoid arthritis History of back pain Surgical History History of hip replacement History of colonoscopy History of left hip replacement Family History Other Family history of COPD (chronic obstructive pulmonary disease) Family history of arthritis Family history of cancer Family history of diabetes mellitus type I Family history of hypertension Social History Smoking Status: Current every day smoker tobacco type: cigarettes packs per day: 1 alcohol intake: former substance use type: denies use current occupational status: unemployed Travel in the last 8 weeks?: None household members: spouse and children housing: apartment caffeine: Yes Have you lived/traveled outside [place] in past 30 days?: No Contact w/someone who lives/traveled outside [place] past 30 days?: No Exposure to someone with infectious disease in past 14 days?: No Do you have a fever (greater than 100.4 F or 38 C)?: No Have you tested positive for COVID-19?: No Exposed to someone with COVID-19 in past 14 days?: No Do you have a sore throat?: No Do you have a cough?: No Do you have any weakness?: No Do you have any diarrhea?: No Are you experiencing any unusual bleeding?: No Do you have any muscle aches/pain?: No Do you have any abdominal pain?: No Are you experiencing loss of taste or smell?: No Other Medical History Have you received the Flu Vaccine for this season: No Have you received the Pneumonia Vaccine: Yes ROS Obtained: Yes All systems reviewed & no additional complaints except as documented Physical Exam General General appearance: alert and in no apparent distress Head Head exam: atraumatic and normocephalic Eye Eye exam: Present PERRL and EOMI ENT ENT exam: Present mucous membranes moist Neck Neck exam: Present normal inspection Chest Chest inspection: Present normal inspection and symmetric chest wall rise Respiratory Respiratory exam: Present wheezes, prolonged expiratory phase and other (Moderate to severe wheezes auscultated throughout lungs bilaterally, audible wheezes noted); Absent normal lung sounds bilaterally or respiratory distress Cardiovascular Cardiovascular exam: Present normal rhythm and tachycardia Abdominal Exam Abdominal exam: Present soft and hernia; Absent tenderness, guarding, rebound or rigidity Extremities Exam Extremities exam: Present normal inspection Neurological Exam Neurological exam: Present alert and oriented X3 Psychiatric Psychiatric exam: Present normal affect Skin Skin exam: Present warm and dry Medical Decision Making Medical Records Medical records reviewed: Yes I reviewed the patient's medical records. Screening: Per USPSTF and CDC recommendations, given the prevalence of disease in our region, it is our hospital?s policy to screen for HIV and viral Hepatitis for all patients aged 18 and over and those with ongoing risk factors. Tin Inquiry Pt receiving controlled substance: No Tin was queried for this patient: No Vital Signs: 10/04/24 12:03 10/04/24 12:41 10/04/24 13:21 Temperature 99.7 F H Temperature Source Oral Pulse Rate 116 H Pulse Rate [Left Radial] 115 H Respiratory Rate 17 25 H Blood Pressure Blood Pressure [Right Arm] 154/91 H Blood Pressure Mean Blood Pressure Mean [Right Arm] 112 Blood Pressure Source [Right Arm] Automatic Cuff Blood Pressure Position [Right Arm] Sitting 02 Sat by Pulse Oximetry 95 97 96 Oxygen Delivery Method Room Air Nasal Cannula Nasal Cannula Oxygen Flow Rate (LPM) 2 2 10/04/24 13:30 10/04/24 14:00 10/04/24 14:15 Temperature Temperature Source Pulse Rate 114 H 105 H 110 H Pulse Rate [Left Radial] Respiratory Rate 24 22 23 Blood Pressure 145/82 H 145/83 H Blood Pressure [Right Arm] Blood Pressure Mean 117 103 Blood Pressure Mean [Right Arm] Blood Pressure Source [Right Arm] Blood Pressure Position [Right Arm] 02 Sat by Pulse Oximetry 95 93 L 92 L Oxygen Delivery Method Nasal Cannula Room Air Room Air Oxygen Flow Rate (LPM) 2 10/04/24 14:30 Temperature Temperature Source Pulse Rate 109 H Pulse Rate [Left Radial] Respiratory Rate 22 Blood Pressure 131/87 Blood Pressure [Right Arm] Blood Pressure Mean 109 Blood Pressure Mean [Right Arm] Blood Pressure Source [Right Arm] Blood Pressure Position [Right Arm] 02 Sat by Pulse Oximetry 92 L Oxygen Delivery Method Nasal Cannula Oxygen Flow Rate (LPM) 2 Lab Data Lab results reviewed: Yes I reviewed the patient's lab results. Lab Results 10/04/24 12:15: SARS-CoV-2 (PCR) Not detected, Influenza A Untype (PCR) Not detected, Influenza Type B (PCR) Not detected 10/04/24 12:25: WBC 11.6 H, RBC 4.22, Hgb 13.2, Hct 39.7, MCV 94.1, MCH 31.3 H, MCHC 33.2, RDW 15.1, Plt Count 204, MPV 12.6 H, Neut % (Auto) 67.6, Lymph % (Auto) 19.2, [place] % (Auto) 10.9 H, Eos % (Auto) 1.6, Baso % (Auto) 0.2, Neut # (Auto) 7.9 H, Lymph # (Auto) 2.2, [place] # (Auto) 1.3 H, Eos # (Auto) 0.2, Baso # (Auto) 0.0, PT 10.7, INR 0.96, Sodium 137, Potassium 3.6, Chloride 106, Carbon Dioxide 26, Anion Gap 8.6, BUN 11, Creatinine 0.90, Estimated Creat Clear 47, Estimated GFR 63, Est GFR ( Amer) 77, Glucose 81, Calcium 8.3 L, Magnesium 1.7, Total Bilirubin 0.8, AST 42 H, ALT 25, Alkaline Phosphatase 92, Troponin I < 0.01, NT-Pro-B Natriuret Pep 1170 H, Total Protein 7.4, Albumin 3.9, Globulin 3.5 H, Albumin/Globulin Ratio 1.1, Lipase 22 L 10/04/24 12:41: VBG pH 7.42 H, VBG pCO2 41.9, VBG pO2 90.2 H, VBG HCO3 26.4, VBG Total CO2 27.7 H, VBG O2 Saturation 96.8 H, VBG Base Excess 1.9, VBG Lactic Acid 1.3 10/04/24 12:25 10/04/24 12:25 Orders (Tests/Meds): ED MEDICATIONS Generic Name Dose Route Start Last Admin Trade Name Freq PRN Reason Stop Dose Admin Acetaminophen 650 mg 10/04/24 14:22 Acetaminophen 325mg Tab PO 11/03/24 14:21 Q4HP PRN Fever or Mild Pain (1-3) Albuterol/Ipratropium 3 ml 10/04/24 18:00 Ipratropium/Albuterol 3 Ml [facility] 11/03/24 17:59 Q6RT MARIPOSA Levalbuterol HCl 1.25 mg 10/04/24 14:22 Levalbuterol 1.25mg/3ml [facility] 11/03/24 14:21 Q4HP PRN Shortness Of Breath Nicotine 21 mg 10/04/24 14:22 Nicotine 21mg/24hr Patch TD 11/03/24 14:21 DAILYP PRN Nicotine Cravings Discontinued Medications Generic Name Dose Route Start Last Admin Trade Name Freq PRN Reason Stop Dose Admin Albuterol/Ipratropium 6 ml 10/04/24 12:17 10/04/24 12:33 Ipratropium/Albuterol 3 Ml [facility] 10/04/24 12:18 6 ml ONCE ONE Administration Azithromycin 500 mg/ Sodium 250 mls @ 250 mls/hr 10/04/24 13:26 10/04/24 13:58 Chloride IV 10/04/24 13:27 250 mls/hr ONCE ONE Administration Methylprednisolone Sodium Succinate 125 mg 10/04/24 12:18 10/04/24 12:33 Methylprednisolone Sod Succ 125mg Vial IV 10/04/24 12:19 125 mg ONCE ONE Administration ORDERS Category Date Time Status XR chest portable Stat Exams 10/04/24 12:17 Completed Complete Blood Count Auto Diff AMLAB Lab 10/05/24 06:00 Ordered Complete Blood Count Auto Diff Stat Lab 10/04/24 12:25 Completed Comprehensive Metabolic Panel AMLAB Lab 10/05/24 06:00 Ordered Comprehensive Metabolic Panel Stat Lab 10/04/24 12:25 Completed Full Resp Panel w/COVID ([facility]) Routine Lab 10/04/24 12:15 Received Lipase Stat Lab 10/04/24 12:25 Completed Magnesium AMLAB Lab 10/05/24 06:00 Ordered Magnesium Stat Lab 10/04/24 12:25 Completed NT Pro Brain Natriuretic Pep. Stat Lab 10/04/24 12:25 Completed PT INR [Prothrombin Time INR] Stat Lab 10/04/24 12:25 Completed Rapid PCR Covid and Flu A/B Stat Lab 10/04/24 12:15 Completed Troponin I Q3H Lab 10/04/24 15:30 Ordered Troponin I Q3H Lab 10/04/24 18:30 Ordered Troponin I Stat Lab 10/04/24 12:25 Completed Blood Culture Stat Micro 10/04/24 13:55 Received VBG [Venous Blood Gas] Stat RT 10/04/24 12:41 Completed Medical Decision Narrative: 64-year-old female presents emergency department with shortness of air and productive cough, differential diagnose include but not limited to COPD exacerbation, new onset/acute CHF exacerbation, electrolyte disturbance, cardiac arrhythmia, pneumonia, costochondritis, ACS, acute URI among others. I discussed this patient's case with the attending physician Will obtain basic laboratory studies, CXR, EKG, lipase level magnesium level proBNP coags, rapid PCR COVID and flu, troponin, VBG, will give 6 mm DuoNeb and 125 mg Solu-Medrol IV. CBC noted for mild leukocytosis 11.6 Coag within normal limits Minimal hypercalcemia at 8.3, AST is mildly elevated at 42, troponin within normal limits proBNP is 1170. I reviewed the patient's chest x-ray along with corresponding radiologic report, interstitial lung disease. VBG is notable for pH of 7.42, pCO2 within normals, PO2 is mildly elevated at 27.7 Will give 500 mg IV azithromycin for COPD exacerbation. Rapid PCR COVID and flu were negative I discussed this patient's case with the hospitalist on-call Dr. Soto in person at approximately 2:05 PM, he is in agreement with the current admission plan/treatment plan, for acute COPD exacerbation with new onset oxygen requirement, patient will be admitted to hospital medicine. Discussed need for admission with the patient at the bedside patient agreed with current treatment plan/admission plan. Will add on full respiratory panel via hospitalist request. Critical Care Critical Care Time Critical Care Time: Yes Attestation: On 10/04/24, the high probability of a clinically significant, sudden or life threatening deterioration of the following system(s) required my full and direct attention, intervention and personal management. The time I documented below is in addition to time spent performing reported procedures but includes the following listed in this critical care notation. Total Time Total Critical Care Time: 30
[2024-10-04 12:22] LABS: Coronavirus 19, PCR Not Detected (NotDetected); Influenza A, PCR Not Detected (NotDetected); Influenza B, PCR Not Detected (NotDetected)
[2024-10-04] MEDS: METHYLPREDNISOLONE SOD SUCC 125MG VIAL 125 MG IV (12:33)
[2024-10-04] MEDS: IPRATROPIUM/ALBUTEROL 3 ML NEB 6 ML IH (12:33)
[2024-10-04 12:42] LABS: Hematocrit 39.7 % (37.0-47.0); Hemoglobin 13.2 g/dL (12.2-16.2); Immature Granulocytes % 0.5 %; Mean Corpuscular HGB Conc 33.2 g/dL (31.8-35.4); Mean Corpuscular Hemoglobin 31.3 pg (27.0-31.2); Mean Corpuscular Volume 94.1 fl (81-99); Nucleated Red Blood Cells % 0 %; Platelet Count 204 K/mm3 (142-424); Red Blood Count 4.22 M/mm3 (4.20-5.40); Red Cell Distribution Width-SD 52.1 fL; White Blood Count 11.6 K/mm3 (4.8-10.8)
[2024-10-04 12:50] LABS: Albumin Level 3.9 g/dl (3.5-5.0); Chloride 106 mmol/L (98-107); Sodium 137 mmol/L (136-145)
[2024-10-04 12:50] LABS: Lactate Venous 1.3 mmol/L (0.4-2.0); VBG HCO3 26.4 mmol/L (23-30); VBG PCO2 41.9 mmol/L (35-51); VBG PH 7.42 mmol/L (7.31-7.41); VBG PO2 90.2 mmol/L (28-40)
[2024-10-04 12:51] LABS: Potassium 3.6 mmoL/L (3.5-5.1)
[2024-10-04 12:52] LABS: Lipase 22 U/L (23-300)
[2024-10-04 12:53] LABS: Alanine Aminotransferase 25 U/L (12-78); Albumin/Globulin Ratio 1.1 (1.1-1.8); Anion Gap 8.6 mEq/L (5-15); Aspartate Amino Transferase 42 U/L (14-36); Blood Urea Nitrogen 11 mg/dl (7-17); Carbon Dioxide 26 mmol/L (22.0-30.0); Creatinine Clearance Estimated 47 mL/min (50-200); Creatinine,Serum 0.90 mg/dl (0.52-1.04); Estimated Glomerular Filt Rate 63 ml/min (>60); GFR (African American) 77 ML/MIN (>60); Globulin 3.5 g/dL (1.3-3.2); INR 0.96 (0.9-1.1); Magnesium 1.7 mg/dl (1.6-2.3); Prothrombin Time 10.7 seconds (10.1-12.5); Total Protein,Serum 7.4 g/dl (6.3-8.2)
[2024-10-04 12:54] LABS: Alkaline Phosphatase 92 U/L (38-126); Bilirubin,Total 0.8 mg/dl (0.2-1.3); Calcium 8.3 mg/dl (8.4-10.2); Glucose 81 mg/dl (74-100)
[2024-10-04 13:02] LABS: NT Pro Brain Natriuretic Pep. 1170 pg/mL (0-125)
[2024-10-04 13:07] LABS: Troponin I < 0.01 ng/ml (0.00-0.034)
[2024-10-04] MEDS: AZITHROMYCIN 500 MG in 0.9 % SODIUM CHLORIDE 250 ML 250 MG IV (13:58)
[2024-10-04 14:16] LABS: Adenovirus,PCR Not Detected (NotDetected); Chlamydophila Pneumoniae, PCR Not Detected (NotDetected); Coronavirus 19, PCR Not Detected (NotDetected); Coronovirus HKU1,PCR Not Detected (NotDetected); Influenza A, PCR Not Detected (NotDetected); Influenza AH1, 2009 Not Detected (NotDetected); Influenza AH1, PCR Not Detected (NotDetected); Influenza AH3,PCR Not Detected (NotDetected); Influenza B, PCR Not Detected (NotDetected); Mycoplasma Pneumoniae, PCR Not Detected (NotDetected); Parainfluenza 1, PCR Not Detected (NotDetected); Parainfluenza 2, PCR Not Detected (NotDetected); Parainfluenza 3, PCR Not Detected (NotDetected); Parainfluenza 4, PCR Not Detected (NotDetected)
--- NOTE | 2024-10-04 14:24 | EXP.HP ---
History of Present Illness *Admission Date: 10/04/24 *Reason for visit:: dyspnea *History of present illness: Ms. Gonzalez is a 64-year-old female with rheumatoid arthritis, on immune modulating therapy, continues to smoke cigarettes, and has progressing interstitial lung disease. Presented to the ER with complaint of worsening shortness of breath over the past 24 hours. Has had a mildly productive cough today. Denies any fever or chills. No nausea or vomiting. No known recent sick contacts. Last saw pulmonology in April and is supposed to be using Anoro inhaler. On arrival to the ED, found to have low oxygen of about 90% on room air with increased work of breathing. Also found to be tachypneic and tachycardic. Initiated on supplemental oxygen for goal sats in the mid 90s. Received nebulizer treatment with some improvement in shortness of breath but remained tachycardic and tachypneic. White count of 11.6. Elevated temperature at 99.7, not frankly febrile. BNP elevated 1170. Medicine consulted for admission and further management due to COPD exacerbation given underlying immunosuppression, risk of decompensation, and initial oxygen requirement. Increased work of breathing noted when entering the room. Prolonged expiratory phase. Able to complete short sentences. Unable to give long answers due to dyspnea. Appears chronically ill. No nausea or vomiting. Denies any chest pain. Does have some edema in her right leg. Says this is increased recently. [facility] Disclaimer: The information contained in this section may have been updated after the patient was seen, as this information can be updated by other users. Medical History Influenza A Acute exacerbation of chronic obstructive pulmonary disease Acute viral syndrome Shortness of breath COPD with respiratory distress, acute Osteopenia Scoliosis Hypokalemia Abdominal pain Ventral incisional hernia without obstruction or gangrene Acute pain of left knee Abdominal pain JAMISON (acute kidney injury) Tobacco dependence in remission Nausea & vomiting Acute colitis Hypokalemia Urinary tract infection Acute exacerbation of chronic obstructive pulmonary disease (COPD) Low back pain Bilateral knee pain Right shoulder pain Acute exacerbation of chronic obstructive pulmonary disease Fibrosis of lung Smoking greater than 30 pack years Pulmonary emphysema ILD (interstitial lung disease) HSV-1 infection Urinary tract infection Pneumonia Urinary incontinence Osteoarthritis Rheumatoid arthritis History of back pain Surgical History History of hip replacement History of colonoscopy History of left hip replacement Family History Other Family history of COPD (chronic obstructive pulmonary disease) Family history of arthritis Family history of cancer Family history of diabetes mellitus type I Family history of hypertension Social History (Updated 10/04/24 @ 15:16 by Yarelis Rdz RN) Smoking Status: Current every day smoker tobacco type: cigarettes packs per day: 1 alcohol intake: former substance use type: denies use current occupational status: unemployed Travel in the last 8 weeks?: None household members: spouse and children housing: apartment caffeine: Yes Contact w/someone who lives/traveled outside [place] past 30 days?: No Exposure to someone with infectious disease in past 14 days?: No Do you have a fever (greater than 100.4 F or 38 C)?: No Have you tested positive for COVID-19?: No Exposed to someone with COVID-19 in past 14 days?: No Do you have a sore throat?: No Do you have a cough?: No Do you have any weakness?: No Are you experiencing any nausea/vomitting?: No Do you have any diarrhea?: No Are you experiencing any unusual bleeding?: No Do you have any muscle aches/pain?: No Do you have any abdominal pain?: No Are you experiencing loss of taste or smell?: No Other Medical History Have you received the Flu Vaccine for this season: No Have you received the Pneumonia Vaccine: Yes Review of Systems Review of Systems Review of systems (narrative): 14 point review of systems performed, pertinent positives and negatives as per HPI Meds Home Medications and Allergies Home Medications ?Medication ?Instructions ?Recorded ?Confirmed ?Type adalimumab 40 mg/0.8 mL 40 mg SQ DIRECTED 10/04/24 10/04/24 History subcutaneous pen kit (Humira Pen) albuterol sulfate 90 mcg/actuation 2 puff inhalation Q4HP PRN Wheezing 10/04/24 10/04/24 History aerosol inhaler alendronate 70 mg tablet 70 mg PO WEEKLY 10/04/24 10/04/24 History atorvastatin 40 mg tablet 40 mg PO DAILY 10/04/24 10/04/24 History budesonide 160 mcg-glycopyr 9 2 puff inhalation BID 10/04/24 10/04/24 History mcg-formot 4.8 mcg/actuation HFA inhaler (Breztri Aerosphere) cariprazine 1.5 mg capsule 1.5 mg PO DAILY 10/04/24 10/04/24 History (Vraylar) clopidogrel 75 mg tablet 75 mg PO DAILY 10/04/24 10/04/24 History cyanocobalamin (vitamin B-12) 1,000 mcg IM MONTHLY 10/04/24 10/04/24 History 1,000 mcg/mL injection solution cyclobenzaprine 10 mg tablet 10 mg PO Q8HP PRN Muscle Spasm 10/04/24 10/04/24 History escitalopram oxalate 20 mg tablet 20 mg PO DAILY 10/04/24 10/04/24 History famotidine 40 mg tablet 40 mg PO DAILY 10/04/24 10/04/24 History ferrous sulfate 325 mg (65 mg 325 mg PO DAILY 10/04/24 10/04/24 History iron) tablet (FeroSul) furosemide 20 mg tablet 20 mg PO DAILY 10/04/24 10/04/24 History gabapentin 800 mg tablet 800 mg PO BID 10/04/24 10/04/24 History lidocaine 5 % topical patch 1 patch transdermal DAILY 10/04/24 10/04/24 History mirtazapine 15 mg tablet 15 mg PO HS 10/04/24 10/04/24 History omeprazole 40 mg capsule,delayed 40 mg PO DAILY 10/04/24 10/04/24 History release potassium chloride 20 mEq 20 meq PO DAILY 10/04/24 10/04/24 History tablet,extended release(part/cryst) prednisone 20 mg tablet 20 mg PO DIRECTED 10/04/24 10/04/24 History rimegepant 75 mg disintegrating 75 mg PO DAILYP PRN Migraine 10/04/24 10/04/24 History tablet (Nurtec ODT) Headache rivaroxaban 2.5 mg tablet (Xarelto) 2.5 mg PO BID 10/04/24 10/04/24 History terbinafine HCl 250 mg tablet 250 mg PO DAILY 10/04/24 10/04/24 History New Prescriptions to Start Prescriptions: Allergies Allergy/AdvReac Type Severity Reaction Status Date / Time No Known Allergies Allergy Verified 05/07/24 13:05 Exam Data for Last 24 hours Vital signs and Labs for Last 24 Hours: Temp Pulse Resp BP Pulse Ox O2 Del Method O2 Flow Rate 99.7 F H 110 H 23 145/83 H 92 L Room Air 2 10/04/24 12:03 10/04/24 14:15 10/04/24 14:15 10/04/24 14:00 10/04/24 14:15 10/04/24 14:15 10/04/24 13:30 Laboratory Results - last 24 hr 10/04/24 12:15: SARS-CoV-2 (PCR) Not detected, Influenza A Untype (PCR) Not detected, Influenza Type B (PCR) Not detected 10/04/24 12:25: WBC 11.6 H, RBC 4.22, Hgb 13.2, Hct 39.7, MCV 94.1, MCH 31.3 H, MCHC 33.2, RDW 15.1, Plt Count 204, MPV 12.6 H, Neut % (Auto) 67.6, Lymph % (Auto) 19.2, [place] % (Auto) 10.9 H, Eos % (Auto) 1.6, Baso % (Auto) 0.2, Neut # (Auto) 7.9 H, Lymph # (Auto) 2.2, [place] # (Auto) 1.3 H, Eos # (Auto) 0.2, Baso # (Auto) 0.0, PT 10.7, INR 0.96, Sodium 137, Potassium 3.6, Chloride 106, Carbon Dioxide 26, Anion Gap 8.6, BUN 11, Creatinine 0.90, Estimated Creat Clear 47, Estimated GFR 63, Est GFR ( Amer) 77, Glucose 81, Calcium 8.3 L, Magnesium 1.7, Total Bilirubin 0.8, AST 42 H, ALT 25, Alkaline Phosphatase 92, Troponin I < 0.01, NT-Pro-B Natriuret Pep 1170 H, Total Protein 7.4, Albumin 3.9, Globulin 3.5 H, Albumin/Globulin Ratio 1.1, Lipase 22 L 10/04/24 12:41: VBG pH 7.42 H, VBG pCO2 41.9, VBG pO2 90.2 H, VBG HCO3 26.4, VBG Total CO2 27.7 H, VBG O2 Saturation 96.8 H, VBG Base Excess 1.9, VBG Lactic Acid 1.3 I & O for Last 24 hours: Intake & Output 10/01/24 10/02/24 10/03/24 10/04/24 23:59 23:59 23:59 23:59 Weight 51.256 kg Constitutional Constitutional: mild distress, average body habitus, chronically ill appearing and cooperative *Routine HEENT Exam Head: Present normocephalic Eye: Present EOMI and PERRL ENT: Present mucous membranes moist Comments: Edentulous *Routine Neck Exam Neck: Present supple; Absent lymphadenopathy *Routine Respiratory Exam Respiratory: Present accessory muscle use, prolonged expiratory phase, respiratory distress, rhonchi, wheezes and crackles *Routine Cardiovascular Exam Cardiovascular: Present RRR and tachycardia *Routine Abdominal Exam Abdominal: Present soft and normoactive bowel sounds; Absent tenderness *Routine Rectal Exam Rectal:: deferred *Routine Genitalia Exam Genitalia:: deferred *Routine Extremities Exam Extremities: Present edema (2+ to knee in right leg, 1+ in left leg); Absent cyanosis or clubbing *Routine Skin Exam Skin: Present intact and warm; Absent rash *Routine Neurological Exam Neurological: Present alert, oriented X3 and moving all extremities; Absent altered mental status Assessment and Plan *Assessment and plan (1) Acute exacerbation of chronic obstructive pulmonary disease: Status: Acute Category: Medical Code(s): J44.1 - Chronic obstructive pulmonary disease with (acute) exacerbation (2) Shortness of breath: Status: Inactive Category: Medical Code(s): R06.02 - Shortness of breath (3) Fibrosis of lung: Status: Acute Category: Medical Code(s): J84.10 - Pulmonary fibrosis, unspecified (4) Smoking greater than 30 pack years: Status: Acute Category: Social Hx Code(s): F17.210 - Nicotine dependence, cigarettes, uncomplicated (5) Pulmonary emphysema: Status: Acute Qualifiers: Emphysema type: unilateral Qualified Code(s): J43.0 - Unilateral pulmonary emphysema [MacLeod's syndrome] Category: Medical Code(s): J43.9 - Emphysema, unspecified (6) Rheumatoid arthritis: Status: Acute Qualifiers: Rheumatoid arthritis location: unspecified site Rheumatoid factor presence: unspecified presence Qualified Code(s): M06.9 - Rheumatoid arthritis, unspecified Category: Medical Code(s): M06.9 - Rheumatoid arthritis, unspecified (7) SIRS (systemic inflammatory response syndrome): Problem Comment: Present on admission Status: Acute Category: Medical Code(s): R65.10 - Systemic inflammatory response syndrome (SIRS) of non-infectious origin without acute organ dysfunction Plan 64-year-old female with RA, interstitial lung disease, COPD on immune modulating therapy. Presents with 24 hours of worsening shortness of breath. In mild distress on arrival to the ER. Had some report response to nebulizers but was still having significant work of breathing. Discussed case with ER provider, request admission for management overnight with nebulizers, steroids, close monitoring due to risk for decompensation. I decided to admit for further care. Problems addressed as follows: COPD exacerbation Interstitial lung disease SIRS -Presents with increased work of breathing, tachycardia with heart rate consistently above 90 and tachypnea w/ respiratory rate consistently above 20. Meeting SIRS criteria. - Comprehensive respiratory panel negative. No focal consolidation on chest imaging. - New oxygen requirement. Goal sats greater 90%. Wean as tolerated - Continue DuoNebs every 6 hours scheduled, lev albuterol every 4 hours as needed - Initiate steroids, received methylprednisolone in the ER. Continue 40 mg prednisone p.o. for 5 days. Initiated on ceftriaxone once, plan to continue cefdinir for 5 days of therapy for COPD exacerbation - Recommend follow-up with pulmonology in 2 to 3 weeks after discharge when stable to discharge home - Increased interstitial/reticular markings on chest x-ray per my review on admission. No focal consolidation or effusions noted. - White count 11.6. Hemoglobin 13.2. Kidney function normal with BUN 11, creatinine 0.9. Potassium 3.6. Repeat CBC, CMP, magnesium ordered for the morning Suspected HFpEF exacerbation - Last echo performed 07/19/2021. Had normal EF at 55%. Did not appear to have diastolic dysfunction at that time. Repeat echo obtained. Presentation concerning for CHF exacerbation with elevated BNP of 1100 and edema in her legs. - Repeat echo obtained that preliminarily shows EF preserved, - Will diurese with Lasix 40 mg IV once and monitor for improvement given edema in legs and congestion on chest imaging per my review - Will resume home Lasix at increased dose of 40 mg daily while admitted Continue home medications for chronic conditions as follows: - Lipitor 40 mg daily - Vraylar 1.5 mg daily - Plavix 75 mg daily - Flexeril 10 mg every 8 hours as needed - Lexapro 20 mg daily for mood disorder - Famotidine 40 daily for GERD - Continue gabapentin 800 mg twice a day for neuropathy - Continue mirtazapine 15 mg nightly for sleep and mood - Continue Xarelto 2.5 mg twice daily Full code Cardiac diet Xarelto as above
--- NOTE | 2024-10-04 14:54 | PC.NURSE ---
PAtient report called ayah Wolf RN.
--- NOTE | 2024-10-04 14:55 | HMH.PHAINT1 ---
Pharmacy Intervention Comments: MEDICATION RECONCILIATION COMPLETED ON PATIENT USING EXTERNAL FILL HISTORY FROM PHARMACY. -HECTOR TAN, MADELINED
--- NOTE | 2024-10-04 15:15 | CA_ITS ---
APPROVED REPORT EXAM: Comprehensive 2D, Doppler, and color-flow Echocardiogram Instant Print Operator: Suad Soto RT(R) Ht: 4 ft 8 in Wt: 113lbs BSA: 1.39 BP: 145/83 mmHg Indications: COPD, smoker, coughing throughout exam. 2D Dimensions LVEF (Clancy's) 55.40 % F: 54 - 74 LV Volume 76.00 mL F: 46 - 106 LV Volume Index 54.7 mL/m2 F: 29 - 61 EF AP4 46.90 % EF AP2 62.4 % EF BP 55.4 % GL Strain -15.3 % M-Mode Dimensions RVDd 1.93 cm (0.9-2.6) LA Diam 2.93 cm (1.9-4.0) LVDd 4.21 cm (3.5-5.7) LVDs 2.96 cm (3.5-5.7) IVSd 0.80 cm (0.6-1.1) PWd 0.80 cm (0.6-1.1) EF (Teich) 57.10% FS 29.70% EDV (Teich) 79.00 mL ESV (Teich) 33.90 mL LV Diastology E Decel Time 150 (160-240 msec) E/A Ratio 0.6 Mitral Valve MV E Max Asa. 64.0 (40-130 cm/s) MV A Velocity 105.0 (40-130 cm/s) E/A Ratio 0.61 MV PHT 44.0 ms Left Ventricle The left ventricle is normal size. Left ventricular systolic function is low normal. There is increased left ventricular wall thickness. There is normal LV segmental wall motion. The left ventricular diastolic function is normal. LVEF is 50% Right Ventricle The right ventricle is normal size. The right ventricular systolic function is normal. Atria The left atrium size is normal. The right atrium size is normal. There is no color Doppler evidence of interatrial shunt. Aortic Valve The aortic valve is mildly thickened. There is no hemodynamically significant aortic valvular stenosis. No aortic regurgitation is present. Mitral Valve The mitral valve is normal in structure. No evidence of mitral valve stenosis. Trace mitral regurgitation is present. Tricuspid Valve The tricuspid valve leaflets are thin and pliable. Trace tricuspid regurgitation. There is insufficient TR jet to estimate RVSP. Pulmonic Valve The pulmonary valve is grossly normal in structure. Trace pulmonic valve regurgitation is present. Great Vessels The aortic root is normal in size. IVC is normal in size and collapses >50% with inspiration. Pericardium There is no pericardial effusion. Other Information Study Quality: Fair Conclusion Low-normal LV systolic function. Normal RV size and function. No significant valvular stenosis or regurgitation. Electronically signed by : Alisia Henderson MD 10/04/2024 19:26:16
[2024-10-04] MEDS: LEVALBUTEROL 1.25MG/3ML NEB 1.25 MG IH (15:34)
--- NOTE | 2024-10-04 15:50 | DIET.NUTRFU ---
RD consulted secondary to chewing issues, patient has no teeth. Upon interview patient agreed to a chopped diet to help with po intake
[2024-10-04 16:07] LABS: Troponin I < 0.01 ng/ml (0.00-0.034)
--- NOTE | 2024-10-04 16:11 | PC.WOUNDNOTE ---
right anterior thigh
--- NOTE | 2024-10-04 16:12 | PC.WOUNDNOTE ---
left anterior silva
[2024-10-04] MEDS: FUROSEMIDE 40MG/4ML VIAL 40 MG IV (16:49)
[2024-10-04] MEDS: FLUTICASONE/UMECLIDIN/VILANTER 200/62.5/25MCG INHALER 1 PUFF IH (16:49)
[2024-10-04] MEDS: IPRATROPIUM/ALBUTEROL 3 ML NEB IH ×2 (17:50→23:28)
--- NOTE | 2024-10-04 18:30 | PC.NURSE ---
vital signs stable, patient's breathing is labored, inspiratory and expiratory wheezes. patient is on RA at baseline, 1L NC applied currently, sats 93-95. patient being diuresed, hat in BSC to measure output. called RT for PRN xopenex. call light in reach, bed in lowest position.
[2024-10-04 19:09] LABS: Troponin I < 0.01 ng/ml (0.00-0.034)
[2024-10-04] MEDS: GABAPENTIN 800MG TABLET 800 MG PO (20:15)
[2024-10-04] MEDS: MIRTAZAPINE 15 MG TABLET PO (20:15)
[2024-10-04] MEDS: PANTOPRAZOLE 40MG TABLET 40 MG PO (20:15)
[2024-10-05] VITALS (9 sets, daily range): BP systolic 101–140; BP diastolic 69–97; PULSE 79–113; RESP 16–20; TEMP 36.6–36.8; O2SAT 89–94; BMI 24.0
--- NOTE | 2024-10-05 02:36 | PC.NURSE ---
Pt AOx4, pleasant. Intermittently resting throughout shift. Pt is on 1 L O2 with no success of weaning down so far. O2 drops below 90 when trying to titrate down, but pt is resting at this time. Respirations even and unlabored. Wheezes audible. Resting in low, locked bed with call light in reach.
[2024-10-05 06:12] LABS: Hematocrit 37.3 % (37.0-47.0); Hemoglobin 12.2 g/dL (12.2-16.2); Immature Granulocytes % 0.6 %; Mean Corpuscular HGB Conc 32.7 g/dL (31.8-35.4); Mean Corpuscular Hemoglobin 31.0 pg (27.0-31.2); Mean Corpuscular Volume 94.9 fl (81-99); Nucleated Red Blood Cells % 0 %; Platelet Count 205 K/mm3 (142-424); Red Blood Count 3.93 M/mm3 (4.20-5.40); Red Cell Distribution Width-SD 52.3 fL; White Blood Count 10.9 K/mm3 (4.8-10.8)
[2024-10-05] MEDS: IPRATROPIUM/ALBUTEROL 3 ML NEB IH ×4 (06:17→23:15)
[2024-10-05] MEDS: FLUTICASONE/UMECLIDIN/VILANTER 200/62.5/25MCG INHALER 1 PUFF IH (06:17)
[2024-10-05 06:23] LABS: Albumin Level 3.6 g/dl (3.5-5.0); Chloride 105 mmol/L (98-107); Sodium 138 mmol/L (136-145)
[2024-10-05 06:24] LABS: Potassium 3.4 mmoL/L (3.5-5.1)
[2024-10-05 06:26] LABS: Alanine Aminotransferase 21 U/L (12-78); Albumin/Globulin Ratio 1.1 (1.1-1.8); Alkaline Phosphatase 85 U/L (38-126); Anion Gap 9.4 mEq/L (5-15); Aspartate Amino Transferase 31 U/L (14-36); Bilirubin,Total 0.3 mg/dl (0.2-1.3); Blood Urea Nitrogen 17 mg/dl (7-17); Carbon Dioxide 27 mmol/L (22.0-30.0); Creatinine Clearance Estimated 41 mL/min (50-200); Creatinine,Serum 1.10 mg/dl (0.52-1.04); Estimated Glomerular Filt Rate 50 ml/min (>60); GFR (African American) 61 ML/MIN (>60); Globulin 3.2 g/dL (1.3-3.2); Total Protein,Serum 6.8 g/dl (6.3-8.2)
[2024-10-05 06:27] LABS: Calcium 7.9 mg/dl (8.4-10.2); Glucose 110 mg/dl (74-100); Magnesium 2.0 mg/dl (1.6-2.3)
[2024-10-05] MEDS: ESCITALOPRAM 20MG TABLET 20 MG PO (09:05)
[2024-10-05] MEDS: CLOPIDOGREL 75MG TAB 75 MG PO (09:05)
[2024-10-05] MEDS: FUROSEMIDE 40 MG TABLET PO (09:05)
[2024-10-05] MEDS: FAMOTIDINE 20MG TABLET 40 MG PO (09:05)
[2024-10-05] MEDS: POTASSIUM CHLORIDE 20MEQ TAB 40 MEQ PO (09:08)
[2024-10-05] MEDS: ATORVASTATIN 40MG TABLET 40 MG PO (09:08)
[2024-10-05] MEDS: GABAPENTIN 800MG TABLET 800 MG PO ×2 (09:09→20:00)
[2024-10-05] MEDS: CEFDINIR 125MG/5ML ORAL SUSP 60ML 300 MG PO ×2 (09:12→20:00)
--- NOTE | 2024-10-05 16:12 | EXP.PN ---
Subjective *Date: 10/05/24 *Time: 16:12 Interval history: seen at bedside, no fevers overnight, denied CP, SOB, complains of wheezing Exam Data for Last 24 hours Vital signs and Labs for Last 24 Hours: Temp Pulse Resp BP Pulse Ox O2 Del Method O2 Flow Rate 97.8 F 111 H 16 108/69 L 90 L Room Air 1 10/05/24 07:46 10/05/24 11:22 10/05/24 07:46 10/05/24 07:46 10/05/24 11:22 10/05/24 11:22 10/05/24 08:00 Laboratory Results - last 24 hr 10/04/24 18:15: Troponin I < 0.01 10/05/24 06:00: WBC 10.9 H, RBC 3.93 L, Hgb 12.2, Hct 37.3, MCV 94.9, MCH 31.0, MCHC 32.7, RDW 14.9, Plt Count 205, MPV 12.5 H, Neut % (Auto) 72.0, Lymph % (Auto) 18.5, [place] % (Auto) 8.6, Eos % (Auto) 0.1, Baso % (Auto) 0.2, Neut # (Auto) 7.8, Lymph # (Auto) 2.0, [place] # (Auto) 0.9, Eos # (Auto) 0.0, Baso # (Auto) 0.0, Sodium 138, Potassium 3.4 L, Chloride 105, Carbon Dioxide 27, Anion Gap 9.4, BUN 17 D, Creatinine 1.10 H D, Estimated Creat Clear 41, Estimated GFR 50 L, Est GFR ( Amer) 61 D, Glucose 110 H D, Calcium 7.9 L, Magnesium 2.0 D, Total Bilirubin 0.3, AST 31 D, ALT 21, Alkaline Phosphatase 85, Total Protein 6.8, Albumin 3.6, Globulin 3.2, Albumin/Globulin Ratio 1.1 I & O for Last 24 hours: Intake & Output 10/02/24 10/03/24 10/04/24 10/05/24 23:59 23:59 23:59 23:59 Intake Total 450 / 950 770 / 770 Output Total 1700 / 1700 650 / 650 Balance -1250 / -750 120 / 120 Weight 49.215 kg 48.4 kg Microbiology Reports for the Last 24 Hours: Microbiology 10/04/24 13:55 Blood Blood Culture - Preliminary NO GROWTH AFTER 24 HOURS 10/04/24 13:55 Blood Blood Culture - Preliminary NO GROWTH AFTER 24 HOURS Constitutional Constitutional: no acute distress *Routine HEENT Exam Head: Present normocephalic Eye: Present EOMI and PERRL ENT: Present mucous membranes moist *Routine Neck Exam Neck: Present supple; Absent lymphadenopathy *Routine Respiratory Exam Respiratory: Present decreased breath sounds and wheezes *Routine Cardiovascular Exam Cardiovascular: Present RRR *Routine Abdominal Exam Abdominal: Present soft and normoactive bowel sounds; Absent tenderness *Routine Extremities Exam Extremities: Absent cyanosis, clubbing or edema *Routine Skin Exam Skin: Present warm; Absent rash *Routine Neurological Exam Neurological: Present alert and oriented X3 Assessment and Plan *Assessment and plan (1) Acute exacerbation of chronic obstructive pulmonary disease: Status: Acute Category: Medical Code(s): J44.1 - Chronic obstructive pulmonary disease with (acute) exacerbation (2) Shortness of breath: Status: Inactive Category: Medical Code(s): R06.02 - Shortness of breath (3) Fibrosis of lung: Status: Acute Category: Medical Code(s): J84.10 - Pulmonary fibrosis, unspecified (4) Smoking greater than 30 pack years: Status: Acute Category: Social Hx Code(s): F17.210 - Nicotine dependence, cigarettes, uncomplicated (5) Pulmonary emphysema: Status: Acute Qualifiers: Emphysema type: unilateral Qualified Code(s): J43.0 - Unilateral pulmonary emphysema [MacLeod's syndrome] Category: Medical Code(s): J43.9 - Emphysema, unspecified (6) Rheumatoid arthritis: Status: Acute Qualifiers: Rheumatoid arthritis location: unspecified site Rheumatoid factor presence: unspecified presence Qualified Code(s): M06.9 - Rheumatoid arthritis, unspecified Category: Medical Code(s): M06.9 - Rheumatoid arthritis, unspecified (7) SIRS (systemic inflammatory response syndrome): Problem Comment: Present on admission Status: Acute Category: Medical Code(s): R65.10 - Systemic inflammatory response syndrome (SIRS) of non-infectious origin without acute organ dysfunction Plan 64-year-old female with RA, interstitial lung disease, COPD on immune modulating therapy. Presents with 24 hours of worsening shortness of breath. In mild distress on arrival to the ER. Had some report response to nebulizers but was still having significant work of breathing. COPD exacerbation Interstitial lung disease SIRS -Presents with increased work of breathing, tachycardia with heart rate consistently above 90 and tachypnea w/ respiratory rate consistently above 20. Meeting SIRS criteria. - Comprehensive respiratory panel negative. No focal consolidation on chest imaging. - New oxygen requirement. Goal sats greater 90%. Wean as tolerated - Continue DuoNebs every 6 hours scheduled, lev albuterol every 4 hours as needed - Initiate steroids, received methylprednisolone in the ER. Continue 40 mg prednisone p.o. for 5 days. Initiated on ceftriaxone once, plan to continue cefdinir for 5 days of therapy for COPD exacerbation - Recommend follow-up with pulmonology in 2 to 3 weeks after discharge when stable to discharge home - Increased interstitial/reticular markings on chest x-ray per my review on admission. No focal consolidation or effusions noted. Suspected HFpEF exacerbation - Last echo performed 07/19/2021. Had normal EF at 55%. Did not appear to have diastolic dysfunction at that time. Repeat echo obtained. Presentation concerning for CHF exacerbation with elevated BNP of 1100 and edema in her legs. - Repeat echo obtained that preliminarily shows EF preserved, - Will diurese with Lasix 40 mg IV once and monitor for improvement given edema in legs and congestion on CXR - Will resume home Lasix at increased dose of 40 mg daily while admitted Continue home medications for chronic conditions as follows: - Lipitor 40 mg daily - Vraylar 1.5 mg daily - Plavix 75 mg daily - Flexeril 10 mg every 8 hours as needed - Lexapro 20 mg daily for mood disorder - Famotidine 40 daily for GERD - Continue gabapentin 800 mg twice a day for neuropathy - Continue mirtazapine 15 mg nightly for sleep and mood - Continue Xarelto 2.5 mg twice daily Full code Cardiac diet Xarelto as above continue above management and monitor overnight
[2024-10-05] MEDS: ACETAMINOPHEN 325MG TAB 650 MG PO (16:19)
[2024-10-05] MEDS: PANTOPRAZOLE 40MG TABLET 40 MG PO (20:00)
[2024-10-05] MEDS: MIRTAZAPINE 15 MG TABLET PO (20:00)
[2024-10-06] VITALS (9 sets, daily range): BP systolic 132–144; BP diastolic 75–92; PULSE 80–122; RESP 16–18; TEMP 36.6–37.3; O2SAT 88–98; BMI 25.2
--- NOTE | 2024-10-06 01:39 | PC.NURSE ---
Pt AOx4, pleasant. No acute changes so far in shift. Pt is currently on 1L O2 with stats in the 90s. She denies pain or any additional needs continually throughout shift. She is currently resting in bed with eyes closed. Respirations even and unlabored. Bed is low, locked, and call light is in reach.
[2024-10-06] MEDS: IPRATROPIUM/ALBUTEROL 3 ML NEB IH ×4 (06:01→22:54)
[2024-10-06] MEDS: FLUTICASONE/UMECLIDIN/VILANTER 200/62.5/25MCG INHALER 1 PUFF IH (06:01)
[2024-10-06] MEDS: FUROSEMIDE 40 MG TABLET PO (08:26)
[2024-10-06] MEDS: ESCITALOPRAM 20MG TABLET 20 MG PO (08:26)
[2024-10-06] MEDS: GABAPENTIN 800MG TABLET 800 MG PO ×2 (08:27→20:00)
[2024-10-06] MEDS: FAMOTIDINE 20MG TABLET 40 MG PO (08:27)
[2024-10-06] MEDS: POTASSIUM CHLORIDE 20MEQ TAB 40 MEQ PO (08:27)
[2024-10-06] MEDS: ATORVASTATIN 40MG TABLET 40 MG PO (08:27)
[2024-10-06] MEDS: CLOPIDOGREL 75MG TAB 75 MG PO (08:27)
[2024-10-06] MEDS: CEFDINIR 125MG/5ML ORAL SUSP 60ML 300 MG PO ×2 (08:28→20:00)
--- OUTSIDE RECORDS SUMMARY | 2024-10-06 16:23 | XMS_ITS | Encounter Summary ---
Author Organization [facility] Address [address] [address] [facility] [place] [address] Care Team Providers Care Foundry Hand Name Role Phone Patsy Hair MD Primary Care Provider [phone] Crystal Osborne MD Unavailable [phone] Reason for Visit * Reason Onset Date Comments Results 09/03/2024 Encounter Details Date Type Department Care Team (Noelle Contact Info) Description 09/03/2024 Telephone [facility] E[facility]AS ATTN: Appointments in this department are performed at various locations in the community on our Cardiovascular mobile health unit. You can look online to verify your site or call [phone] [address] Promise Marroquin, ESTHER Results Social History Tobacco [...] 9:40 AM EDT Office Visit [facility] [place] [address] [place] [address] Tiago Franz MD [address] [place] [address] [place] [address] 01/20/2025 3:15 PM EST Office Visit [facility] Nephrology [address] [address] [place] [address] Crystal Osborne MD [address] [facility] [address] [place] [address] 09/25/2025 10:00 AM EDT Appointment [facility] 20 [facility] [address] [place] [address] Amaris Sommer HARPOONER [address] [place] [address] [address] [place] [address] 09/25/2025 11:00 AM EDT Office Visit [facility] 20 [facility] [address] [place] [address] Amaris Sommer [address] [place], [place] [id number] documented as of this encounter Goals Goal Patient Goal Type Associated Problems Recent Progress Patient-Stated? Author Eat better, exercise, reach an ideal body weight General No Vanna Rooney, RMA Stay Tobacco Free Lifestyle No Vanna Rooney, RMA documented as of this encounter Visit Diagnoses Not on filedocumented in this encounter Care Teams Foundry Hand Relationship Specialty Start Date End Date Patsy Hair MD [address] [place] [id number] PCP - General Family Medicine 07/19/13 Crystal Osborne MD [address] [place] [address] Internal Medicine-Nephrology 12/06/23 documented as of this encounter
--- OUTSIDE RECORDS SUMMARY | 2024-10-06 16:23 | XMS_ITS | Encounter Summary ---
Author Organization [place] [address] Care Team Providers Care Rpg Programmer Name Role Phone Patsy Rojas MD Primary Care Provider [phone] Crystal Osborne MD Unavailable [phone] Reason for Visit * Reason Onset Date Comments Relaying Information 08/23/2024 pt stating has had cramps in legs and feet at night time for the last 3 week/ pt is taking the potassium and looking for advice Encounter Details Date Type Department Care Team (Late st Contact Info) Description 08/23/2024 Telephone [facility] [address] [place] [address] Patsy Rojas MD 100 [place] [address] Relaying Information (pt stating has had cramps [...] 9:40 AM EDT Office Visit [facility] [place] [address] [place] [address] Tiago Franz MD 7[address] [facility] [place] [address] 01/20/2025 3:15 PM EST Office Visit [facility] Nephrology Amandeep [address] [place] [address] Crystal Osborne MD [address] [facility] [address] [place] [address] 09/25/2025 10:00 AM EDT Appointment [facility]ASCULAR [address] [facility] [address] [place] [address] Amaris Sommer APRN [address] [facility] [address] [place] [address] 09/25/2025 11:00 AM EDT Office Visit [facility] [address] [facility] [address] [place] [address] MayAmaris APRN [address] [facility] [address] [place] [address] documented as of this encounter Goals Goal Patient Goal Type Associated Problems Recent Progress Patient-Stated? Author Eat better, exercise, reach an ideal body weight General No Vanna Rooney RMA Stay Tobacco Free Lifestyle No Vanna Rooney RMA documented as of this encounter Visit Diagnoses Not on filedocumented in this encounter Care Teams Rpg Programmer Relationship Specialty Start Date End Date Patsy Rojas MD 100 [place] [address] PCP - General Family Medicine 07/19/13 Crystal Osborne MD [address] [facility] [address] [place] [address] Internal Medicine-Nephrology 12/06/23 documented as of this encounter
--- OUTSIDE RECORDS SUMMARY | 2024-10-06 16:23 | XMS_ITS | Clinical Summary ---
Author Organization [facility] Address [address] [place] [address] Care Team Providers Care Purchase Price Analyst Name Role Phone Patsy Hair MD Primary Care Provider [phone] Allergies No known active allergies Medications triamcinolone [...] day if needed. 3 Active HYDROcodone-acet aminophen ([place]) 10-325 MG tablet Take 0.5 tablets (5 [...] n with movement, lifting continuously Atherosclerosis of inupiat ar addi of both lower extremities with intermittent claudication 01/11/2022 01/18/2024 Cigarette nicotine dependenc e with nicotine-induced disorder 01/11/2022 01/18/2024 Atherosclerosis of inupiat ar addi of both lower extremities with bilateral ulceration 01/11/2022 01/18/2024 Ulcer of extremity due to ch ronic venous insufficiency 01/11/2022 01/18/2024 Varicose veins of bilateral lower extremities with other complications 01/11/2022 01/18/2024 History of colon polyps 10/01/202106/2023 Overview (01/18/2024): Diverticulitis with history of resection and tubular adenoma [address] silva at [facility] Wrist pain 01/01/2020 01/18/2024 Acute bronchitis, unspecified [...] Type Department Care Team Description 09/30/2024 Refill [facility] [address] [place] [address] Marta Willis, ION EXCHANGE OPERATOR 09/02/2024 [facility]ill [facility] [address] [place] [address] Marta Willis, ION EXCHANGE OPERATOR 07/31/2024 Telephone [facility] [address] [place] [address] Braulio Scott 07/16/2024 Telephone [facility] [address] [place] [address] Batch, Macho J, PharmD from Last 3 Months Immunizations Immunization Administration Dates Next Due Influenza Vaccine, Quadrivalent, Adjuvanted 11/14,11/24/2009 Influenza, recombinant, quad rivalent, injectable, preservative free 11/26/2021 Influenza, seasonal, injectable, preservative fr ee 12/16/2023 Moderna COVID-19 Vaccine (Direct Marketing Specialist) 12+ years ,10/08/2020 Pneumococcal 20-ventura Conj Vaccine 07/09/2021 Tdap 10/01/2021,09/21/2011 Family History Medical History Relation Name Comments No Known Problems Brother 1 Diabetes Brother 2 Tim Earp neurological disorder Brother 2 Tim Earp Cancer Father Vern Earp Hypertension Father Vern Earp Arthritis Maternal Grandmother Danay Lopez Hearing loss Mother Alvina Earp Hypertension Mother Alvina Erin Arthritis Other 1 Other cancer Other 2 Heart Problem Other 3 Arthritis Paternal Grandmother Izzy Earp Diabetes Paternal Grandmother Izzy Erin Kidney disease Paternal Grandmother Izzy Erin Fibromyalgia Sister Char Calix Heart disease Sister Charasia Calix Relation Name Status Comments Brother 1 Brother 2 Tim Erin Father Vern Earp Maternal Grandmother Danay Lopez Mother Alvina Blackmoncaid [...] 10/04/2007 Sigmoidoscopy 10/04/2007 [facility]-Colorectal Cancer Screening 10/04/2007 [id number] Vaccine (3 - Moderna risk series) 12/08/2020 [...] 12/31/2019 12:05 PM EST us Yarelis Hutchison ION EXCHANGE OPERATOR, DNP LAB BLOOD ORDERABLE S Final Result [facility] * Hepatitis C Antibody (12/31/2019 10:47 AM EST) Hepatitis C Antibody NEGATIVE Reference Range: Negative [facility] 12/31/2019 10:4 7 AM EST 12/31/2019 12:05 PM EST us Yarelis Hutchison ION EXCHANGE OPERATOR, DNP LAB BLOOD ORDERABLE S Final Result [facility]QUEST from Last 3 Months or Most Recently Relevant to Health Maintenance Insurance [facility] MEDICARE Care Teams Purchase Price Analyst Relationship Specialty Start Date End Date Patsy Hair MD [address] [place] [address] PCP - General 06/26/20
--- OUTSIDE RECORDS SUMMARY | 2024-10-06 16:23 | XMS_ITS | Clinical Summary ---
Author Organization [facility] Address [address] [place] [address] Care Team Providers Care Vice President Of Human Resources Name Role Phone Patsy Hair MD Primary Care Provider [phone] Source Comments This information has been disclosed [...] therelease of HIV test results or diagnoses. [id number] Allergies No known active allergies Medications [...] Plan of Treatment Not on file Insurance [employer] Care Teams Vice President Of Human Resources Relationship Specialty Start Date End Date Patsy Hair MD PCP - General Family Medicine 12/10/18
--- OUTSIDE RECORDS SUMMARY | 2024-10-06 16:23 | XMS_ITS | Encounter Summary ---
Author Organization [place] [address] Care Team Providers Care Trash Collector Truck Driver Name Role Phone Patsy Hair MD Primary Care Provider [phone] Crystal Osborne MD Unavailable [phone] Reason for Visit * Reason Onset Date Comments Symptoms (Only Use If Pt Pushes Back On Scheduli ng A Visit) 09/03/2024 Hernia Encounter Details Date Type Department Care Team (Late st Contact Info) Description 09/03/2024 Telephone [facility] [address] [place] [address] Patsy Hair MD [address] [place] [id number] Symptoms (Only Use If Pt Pushes Back [...] 7 Desired Outcome: Advice Pharmacy & Location: [facility] - [place] [address] - [address] [address] S - [phone] [place] [address], [place] [address] SHANDA #: -- Return Method of Communication: Phone Call Was patient transferred to Nurse Triage for additional help? N/A Additional Information: N/A documented in this encounter Plan of Treatment Upcoming Encounters Date Type Department Care Team (Late st Contact Info) Description 10/30/2024 9:40 AM EDT Office Visit [facility] [place] [address] [place] [address] Tiago Franz MD [address] [facility] [place] [address] 01/20/2025 3:15 PM EST Office Visit [facility] Nephrology Amande[address] [place] [address] Crystal Osborne MD [address] [facility] [address] [place] [address] 09/25/2025 10:00 AM EDT Appointment [facility] VASCULAR [address] [place] [address] Drive [address] [place] [address] Amaris Sommer APRN [address] [place] [address] [address] [place] [address] 09/25/2025 11:00 AM EDT Office Visit [facility] [address] [place] [address] [address] [place] [address] MayAmaris APRN [address] [facility] [address] [place], [place] [id number] documented as of this encounter Goals Goal Patient Goal Type Associated Problems Recent Progress Patient-Stated? Author Eat better, exercise, reach an ideal body weight General No Vanna Rooney RMA Stay Tobacco Free Lifestyle No Vanna Rooney RMA documented as of this encounter Visit Diagnoses Not on filedocumented in this encounter Care Teams Trash Collector Truck Driver Relationship Specialty Start Date End Date Patsy Hair MD 100 [place], [place] [address] PCP - General Family Medicine 07/19/13 Crystal Osborne MD [address] [facility] [address] [place] [address] Internal Medicine-Nephrology 12/06/23 documented as of this encounter
--- OUTSIDE RECORDS SUMMARY | 2024-10-06 16:23 | XMS_ITS | Encounter Summary ---
Author Organization [facility] [place] [address] Care Team Providers Care Discharge Planner Name Role Phone Patsy Hair MD Primary Care Provider [phone] Crystal Osborne MD Unavailable [phone] Encounter Details Date Type Department Care Team [...] of Assessment Author No 04/06/2024 9:40 AM Wninie Pinto RMA * Is the person blind [...] 9:40 AM EDT Office Visit [facility] [place] [address] [place] [address] Tiago Franz MD [address] [place] [address] 01/20/2025 3:15 PM EST Office Visit [facility] Nephrology Amandeep [address] [place] [address] Crystal Osborne MD [address] [facility] [address] [place] [address] 09/25/2025 10:00 AM EDT Appointment [facility] [address] [place] [address] [address] [place] [address] Amaris Sommer APRN [address] [place] [address] [address] [place] [address] 09/25/2025 11:00 AM EDT Office Visit [facility] 20 [facility] [address] [place] [address] Amaris Sommer APRN [address] [place] [address] [address] [place] [address] documented as of this encounter Goals Goal Patient Goal Type Associated Problems Recent Progress Patient-Stated? Author Eat better, exercise, reach an ideal body weight General No Vanna Rooney RMA Stay Tobacco Free Lifestyle No Vanna Rooney RMA documented as of this encounter Visit Diagnoses Not on filedocumented in this encounter Care Teams Discharge Planner Relationship Specialty Start Date End Date Patsy Hair MD [address] [place] [id number] PCP - General Family Medicine 07/19/13 Crystal Osborne MD [address] [address] Internal Medicine-Nephrology 12/06/23 documented as of this encounter
--- OUTSIDE RECORDS SUMMARY | 2024-10-06 16:23 | XMS_ITS | Encounter Summary ---
Author Organization [place] [address] Care Team Providers Care Operations Representative Name Role Phone Patsy Hair MD Primary Care Provider [phone] Crystal Osborne MD Unavailable [phone] Reason for Visit * Reason Comments Medication Refill Encounter Details Date Type Department Care Team (Late st Contact Info) Description 09/02/2024 Refill [facility] 100 [place] [address] Patsy Hair MD 100 [place], [place] [id number] Medication Refill Social History Tobacco Use Types [...] reflux disease without esophagitis,Immuno compromised,Athero sclerosis of stillaguamish artery of both lower extremities with intermittent claudication,PAD (peripheral artery disease),Stage 3b chronic kidney disease (HCC) TAKE 1 TABLET BY MOUTH EVERY EVENING, MAY TAKE ADDITIONAL 1/2 TABLET EVERY MORNING AND EVERY AFTERNOON NEEDED 60 Tablet 09/02/2024 documented in this encounter Miscellaneous Notes * Telephone Encounter - Angel Crawofrd DO - 09/02/2024 11:39 AM EDT Med refilled * Telephone Encounter - Becca Dinh MA - 09/02/2024 11:26 AM EDT Last refill 08/02/24 [facility] 06/05/24 documented in this encounter Plan of Treatment Upcoming Encounters Date Type Department Care Team (Late st Contact Info) Description 10/30/2024 9:40 AM EDT Office Visit [facility] [place] [address] [place] [address] Tiago Franz MD [address] [facility] [place], [place] [address] 01/20/2025 3:15 PM EST Office Visit [facility] Nephrology Amandeep [address] [place] [address] Crystal Osborne MD [address]30 [facility] [address] [place] [address] 09/25/2025 10:00 AM EDT Appointment [facility]ASC[facility] 20 [facility] [address] [place] [address] Amaris Sommer APRN [address] [facility] [address] [place], [place] [address] 09/25/2025 11:00 AM EDT Office Visit [facility] 20 [facility] [address] [place] [address] Amaris Sommer WOOL AND PELT GRADER [address] [place] [address] [address] [place], [place] [address] documented as of this encounter Goals Goal Patient Goal Type Associated Problems Recent Progress Patient-Stated? Author Eat better, exercise, reach an ideal body weight General No Vanna Rooney RMA Stay Tobacco Free Lifestyle No Vanna Rooney RMA documented as of this encounter Visit Diagnoses Diagnosis Rheumatoid arthritis, involving unspecified site, unspecified whether rheumatoid factor present ([facility]) Vitamin B 12 deficiency Other B-complex deficiencies Gastroesophageal reflux disease without esophagitis Esophageal reflux Immunocompromised Unspecified immunity deficiency Atherosclerosis of stillaguamish artery of both lower extremities with intermittent claudication Atherosclerosis of stillaguamish arteries of the extremities with intermittent claudication [...] geal reflux disease without esophagitis,Immunocompr omised,Atherosclerosis of stillaguamish artery of both lower extremities with intermittent claudication,PAD (peripheral artery disease),Stage 3b chronic kidney disease (HCC) TAKE 1 TABLET BY MOUTH EVERY EVENING, MAY TAKE ADDITIONAL 1/2 TABLET EVERY MORNING AND EVERY AFTERNOON NEEDED 08/02/2024 09/02/2024 documented as of this encounter Care Teams Operations Representative Relationship Specialty Start Date End Date Patsy Hair MD 100 [place] [address] PCP - General Family Medicine 07/19/13 Crystal Osborne MD [address] [place] [address] Internal Medicine-Nephrology 12/06/23 documented as of this encounter
--- OUTSIDE RECORDS SUMMARY | 2024-10-06 16:23 | XMS_ITS | Encounter Summary ---
Author Organization [facility] Address [address] [place] [address] Care Team Providers Care Catcher Filter Tip Name Role Phone Patsy Hair MD Primary Care Provider Reason for Visit * Reason Comments Med Refill Encounter Details Date Type Department Care Team (Late st Contact Info) Description 09/02/2024 Refill [place] [facility] [address] [place] [address] Marta Willis L, CLAIM INVESTIGATOR [address] [place] [address] Social History Tobacco Use Types [...] documented as of this encounter Care Teams Catcher Filter Tip Relationship Specialty Start Date End Date Patsy Hair MD [address] [place] [address] PCP - General 06/26/20 documented as of this encounter
--- OUTSIDE RECORDS SUMMARY | 2024-10-06 16:23 | XMS_ITS | Encounter Summary ---
Author Organization [place] [address] Care Team Providers Care Lead Teacher Name Role Phone Patsy Hair MD Primary Care Provider [phone] Crystal Osborne MD Unavailable [phone] Reason for Visit * Reason Comments Medication Refill Encounter Details Date Type Department Care Team (Late st Contact Info) Description 08/27/2024 Refill [facility] 100 [place] [address] Patsy Hair MD 100 [place], [place] [id number] Medication Refill Social History Tobacco Use Types [...] 9:40 AM EDT Office Visit [facility] [place] [address] [place] [address] Tiago Franz MD [address] [facility] [place] [address] 01/20/2025 3:15 PM EST Office Visit [facility] Nephrology Am[address] [place] [address] Crystal Osborne MD [address] [facility] [address] [place] [address] 09/25/2025 10:00 AM EDT Appointment [facility] [address] [facility] [address] [place] [address] Amrais Sommer APRN 20 [facility] [address] [place] [address] 09/25/2025 11:00 AM EDT Office Visit [facility] [address] [facility] [address] [place] [address] JuneAmaris APRN [address] [facility] [address] [place], [place] [address] documented as of this encounter Goals Goal Patient Goal Type Associated Problems Recent Progress Patient-Stated? Author Eat better, exercise, reach an ideal body weight General No Vanna Rooney, RMAyaz Stay Tobacco Free Lifestyle No Vanna Rooney RMAyaz documented as of this encounter Visit Diagnoses Not on filedocumented in this encounter Care Teams Lead Teacher Relationship Specialty Start Date End Date Patsy Hair MD 100 [place], [place] [id number] PCP - General Family Medicine 07/19/13 Crystal Osborne MD [address] [place] [address] [address] [place] [address] Internal Medicine-Nephrology 12/06/23 documented as of this encounter
--- OUTSIDE RECORDS SUMMARY | 2024-10-06 16:23 | XMS_ITS | Encounter Summary ---
Author Organization [place] [address] Care Team Providers Care Product Craftsman Name Role Phone Patsy Hair MD Primary Care Provider [phone] Crystal Osborne MD Unavailable [phone] Reason for Referral * MRI/CAT Scan (Routine) - Pending Review Specialty Diagnoses / Procedures Referred By Contac t Referred To Contact Radiology Diagnoses Screening for malignant neoplasm of respiratory organ Personal history of tobacco use, presenting hazards to health Procedures CT LUNG CANCER SCREENING LOW DOSE Patsy Hair MD [address] [place] [address] Phone: tel: fax: Referral ID Status Reason Start Date Expiration Date V isits Requested Visits Authorized [id number] Pending Review 08/30/2024 11/30/2025 1 1 Encounter Details Date Type Department Care Team (Late st Contact Info) Description 08/30/2024 Orders Only [facility] 100 [place] [address] Patsy Hair MD 100 [place] [address] Screening for malignant neoplasm of respiratory organ [...] 9:40 AM EDT Office Visit [facility] [address] [address] Tiago Franz MD [address] [place] [address] [address] [place] [address] 01/20/2025 3:15 PM EST Office Visit [facility] Nephrology Amandeep [address] [place], [place] [address] Crystal Osborne MD [address] [facility] [address] [place] [address] 09/25/2025 10:00 AM EDT Appointment [facility] [address] [place] [address] [address] [place] [address] [place] [address] 09/25/2025 11:00 AM EDT Office Visit [facility] [address] [place] [address] [address] [place] [address] [place], [place] [address] Scheduled Orders Name Type Priority Associated Diagnoses [...] health documented in this encounter Care Teams Product Craftsman Relationship Specialty Start Date End Date Patsy Hair MD 100 [place], [place] [address] PCP - General Family Medicine 07/19/13 Crystal Osborne MD [address] [place] [address] Internal Medicine-Nephrology 12/06/23 documented as of this encounter
--- OUTSIDE RECORDS SUMMARY | 2024-10-06 16:23 | XMS_ITS | Encounter Summary ---
Author Organization Healthcare Address [address] [place] [address] Care Team Providers Care Radiologist Name Role Phone Patsy Hair MD Primary Care Provider [phone] Reason for Visit * Reason Comments Med Refill Encounter Details Date Type Department Care Team (Late st Contact Info) Description 09/30/2024 Refill [facility] [address] [place] [address] Marta Willis L, PANTS MAKER [address] [place] [address] Social History Tobacco Use Types [...] documented as of this encounter Care Teams Radiologist Relationship Specialty Start Date End Date Patsy Hair MD [address] [place] [address] PCP - General 06/26/20 documented as of this encounter
--- OUTSIDE RECORDS SUMMARY | 2024-10-06 16:24 | XMS_ITS | Encounter Summary ---
Author Organization [facility] Address [address] [place] [address] Care Team Providers Care Entertainment Centre Manager Name Role Phone Patsy Hair MD Primary Care Provider [phone] Reason for Visit * Reason Onset Date Comments Med Refill 03/30/2021 Encounter Details Date Type Department Care Team (Late st Contact Info) Description 03/30/2021 Refill [facility] [address] [place] [address] Yarelis Hutchison, RADIO REPORTER, DNP [address] [address] Social History Tobacco Use Types [...] documented as of this encounter Care Teams Entertainment Centre Manager Relationship Specialty Start Date End Date Patsy Hair MD 19 [place] [address] PCP - General 06/26/20 documented as of this encounter
--- OUTSIDE RECORDS SUMMARY | 2024-10-06 16:24 | XMS_ITS | Encounter Summary ---
Author Organization [place] [address] Care Team Providers Care Public Health Outreach Worker Name Role Phone Patsy Hair MD Primary Care Provider [phone] Crystal Osborne MD Unavailable [phone] Reason for Visit * Reason Comments Medication Refill Encounter Details Date Type Department Care Team (Late st Contact Info) Description 08/10/[address] [facility] 100 [place] [id number] Patsy Hair MD 100 [place], [place] [id number] Medication Refill Social History Tobacco Use Types [...] and sent to requesting pharmacy. Routed to [facility] if applicable. documented in this encounter Plan of Treatment Upcoming Encounters Date Type Department Care Team (Late st Contact Info) Description 10/30/2024 9:40 AM EDT Office Visit [facility] [address] [address] Tiago Franz MD 711 [facility] [place] [address] 01/20/2025 3:15 PM EST Office Visit [facility] Nephrology Amandeep [address] [place], [place] [id number] Crystal Osborne MD 830 [facility] [address] [place] [address] 09/25/2025 10:00 AM EDT Appointment [facility] VASCULAR 20 [facility] [address] [place] [phone] Amaris Sommer [address] [place] [address] 09/25/2025 11:00 AM EDT Office Visit [facility] 20 [facility] [address] [place] [address] Amaris Sommer [address] [place] [address] documented as of this encounter Goals Goal [...] documented as of this encounter Care Teams Public Health Outreach Worker Relationship Specialty Start Date End Date Patsy Hair MD 100 [place] [address] PCP - General Family Medicine 07/19/13 Crystal Osborne MD [address] [facility] [address] [place] [address] Internal Medicine-Nephrology 12/06/23 documented as of this encounter
--- OUTSIDE RECORDS SUMMARY | 2024-10-06 16:24 | XMS_ITS | Encounter Summary ---
Author Organization [place] [address] Care Team Providers Care Spot Machine Operator Name Role Phone Patsy Hair MD Primary Care Provider [phone] Crystal Osborne MD Unavailable [phone] Reason for Visit * Reason Onset Date Comments Referral 09/11/2024 Encounter Details Date Type Department Care Team (Late Contact Info) Description 09/11/2024 Telephone [facility] [address] [place] [address] Yulissa Conti, Clerical Staff Referral [...] 9:40 AM EDT Office Visit [facility] [place] [address] [place] [address] Tiago Franz MD [address] [place] [id number] 01/20/2025 3:15 PM EST Office Visit [facility] Nephrology Amandeep [address] [place] [address] Crystal Osborne MD [address] [facility] [address] [place] [address] 09/25/2025 10:00 AM EDT Appointment [facility] VASCULAR 20 [facility] [address] [place] [address] MayAmaris DONOR RELATIONS OFFICER [address] [facility] [address] [place] [address] 09/25/2025 11:00 AM EDT Office Visit [facility] 20 [facility] [address] [place] [address] Amaris Sommer APRN [address] [facility] [address] [address] [place], [place] [id number] documented as of this encounter Goals Goal Patient Goal Type Associated Problems Recent Progress Patient-Stated? Author Eat better, exercise, reach an ideal body weight General No Vanna Rooney RMA Stay Tobacco Free Lifestyle No Vanna Rooney RMA documented as of this encounter Visit Diagnoses Not on filedocumented in this encounter Care Teams Spot Machine Operator Relationship Specialty Start Date End Date Patsy Hair MD 100 [place], [place] [id number] PCP - General Family Medicine 07/19/13 Crystal Osborne MD [address] [facility] [address] [place] [address] Internal Medicine-Nephrology 12/06/23 documented as of this encounter
--- OUTSIDE RECORDS SUMMARY | 2024-10-06 16:24 | XMS_ITS | Encounter Summary ---
Author Organization [place] [address] Care Team Providers Care Thermal Cutting Tracer Machine Operator Name Role Phone Patsy Hair MD Primary Care Provider [phone] Crystal Osborne MD Unavailable [phone] Encounter Details Date Type Department Care Team (Late st Contact Info) Description 09/20/2024 Results Follow-Up [facility] 100 [place] [phone] Patsy Hair MD 100 [place] [address] COMPREHENSIVE METABOLIC PANEL Social History Tobacco Use [...] 9:40 AM EDT Office Visit [facility] [place] [address] [place] [address] Tiago Franz MD 711 [facility] [place] [id number] 01/20/2025 3:15 PM EST Office Visit [facility] Nephrology Amandeep [address] [place] [address] Crystal Osborne MD [address] [facility] [address] [place] [address] 09/25/2025 10:00 AM EDT Appointment [facility] VASCULAR [address] [facility] [address] [place] [address] Amaris Sommer APRN 20 [facility] [address] [address] 09/25/2025 11:00 AM EDT Office Visit [facility] [address] [facility] [address] [place] [address] Amaris Sommer APRN [address] [facility] [address] [place], [place] [id number] documented as of this encounter Goals Goal Patient Goal Type Associated Problems Recent Progress Patient-Stated? Author Eat better, exercise, reach an ideal body weight General No Vanna Rooney RMA Stay Tobacco Free Lifestyle No Vanna Rooney RMA documented as of this encounter Visit Diagnoses Not on filedocumented in this encounter Care Teams Thermal Cutting Tracer Machine Operator Relationship Specialty Start Date End Date Patsy Hair MD 100 [place], [place] [id number] PCP - General Family Medicine 07/19/13 Crystal Osborne MD [address] [place] [address] [address] [place] [address] Internal Medicine-Nephrology 12/06/23 documented as of this encounter
--- OUTSIDE RECORDS SUMMARY | 2024-10-06 16:24 | XMS_ITS | Encounter Summary ---
Author Organization [facility] Address [address] [place] [address] Care Team Providers Care Medical Researcher Name Role Phone Patsy Hair MD Primary Care Provider [phone] Crystal Osborne MD Unavailable [phone] Reason for Visit * Reason Onset Date Comments Medication Refill 09/09/2024 Encounter Details Date Type Department Care Team (Late st Contact Info) Description 09/09/2024 Refill [facility] Nephrology [place] [address] [facility] [address] [place] [address] Crystal Osborne MD [address] [place] [address] Medication Refill Social History Tobacco [...] 9:40 AM EDT Office Visit [facility] [place] [address] [place] [address] Tiago Franz MD [address] [place] [address] [place] [address] 01/20/2025 3:15 PM EST Office Visit [facility] Nephrology Amandeep [address] [place] [address] Crystal Osborne MD [address] [place] [address] [address] [place] [address] 09/25/2025 10:00 AM EDT Appointment [facility]ASCULAR 20 [facility] [address] [place] [address] June, Amaris Camacho COACH CLEANER [address] [facility] [address] [place], [place] [id number] 09/25/2025 11:00 AM EDT Office Visit [facility] 20 [facility] [address] [place] [address] Amaris Sommer APRN [address] [facility] [address] [place], [place] [phone] documented as of this encounter Goals Goal [...] documented as of this encounter Care Teams Medical Researcher Relationship Specialty Start Date End Date Patsy Hair MD 100 [place], [place] [id number] PCP - General Family Medicine 07/19/13 Crystal Osborne MD [address] [place] [address] Internal Medicine-Nephrology 12/06/23 documented as of this encounter
--- OUTSIDE RECORDS SUMMARY | 2024-10-06 16:24 | XMS_ITS | Encounter Summary ---
Author Organization [place] [address] Care Team Providers Care Medical Psychotherapist Name Role Phone Patsy Hair MD Primary Care Provider [phone] Crystal Osborne MD Unavailable [phone] Reason for Visit * Reason Onset Date Comments Medication Refill 09/24/2024 Encounter Details Date Type Department Care Team (Late st Contact Info) Description 09/24/2024 Refill [facility] 100 [place] [id number] Patsy Hair MD 100 [place] [address] Medication Refill Social History Tobacco Use Types [...] 9:40 AM EDT Office Visit [facility] [place] 238 [place] [address] Tiago Franz MD 711 [facility] [place] [address] 01/20/2025 3:15 PM EST Office Visit [facility] Nephrology Amandeep [address] [place] [address] Crystal Osborne MD 830 [facility] [address] [place] [address] 09/25/2025 10:00 AM EDT Appointment [facility]ASCULAR [address] [facility] [address] [place] [address] Amaris Sommer APRN 20 [facility] [address] [place] [address] 09/25/2025 11:00 AM EDT Office Visit [facility] [address] [facility] [address] [place] [address] Amaris Sommer APRN 20 [facility] [address] [place], [place] [id number] documented as of this encounter Goals Goal Patient Goal Type Associated Problems Recent Progress Patient-Stated? Author Eat better, exercise, reach an ideal body weight General No Vanna Rooney, RMA Stay Tobacco Free Lifestyle No Vanna Rooney RMA documented as of this encounter Visit Diagnoses Diagnosis Wheeze Wheezing COPD with acute exacerbation (HCC) Obstructive chronic bronchitis with exacerbation documented in this encounter Care Teams Medical Psychotherapist Relationship Specialty Start Date End Date Patsy Hair MD 100 [place] [address] PCP - General Family Medicine 07/19/13 Crystal Osborne MD 830 [facility] [address] [place] [address] Internal Medicine-Nephrology 12/06/23 documented as of this encounter
--- OUTSIDE RECORDS SUMMARY | 2024-10-06 16:24 | XMS_ITS | Encounter Summary ---
Author Organization [place] [address] Care Team Providers Care Volleyball Player Name Role Phone Patsy Hair MD Primary Care Provider Crystal Osborne MD Unavailable [phone] Reason for Visit * Reason Onset Date Comments Relaying Information 09/24/2024 Case Manage ment Plan from [facility] faxed Encounter Details Date Type Department Care Team (Late st Contact Info) Description 09/24/2024 Telephone [facility] 100 [place] [address] Patsy Hair MD 100 [place] [address] Relaying Information (Case Management Plan from [facility] faxed) Social History Tobacco Use Types [...] Information Who is Calling: Insurance Company/Law Office [facility]: Brigitte (include office company andcaller's name) What information is the caller relaying:Patient called [facility] Case Management reporting the following: - Using tobacco products (unsure of how much) - Limited mobility concerns (falls in the home) - Chronic Pain (over 8 medication for this) - Reported COPD - End Stage Renal Disease. [facility] is following up with PCP who participates in the case management program to develop a care plan for the patient. This care plan was faxed to the provider by the foreign service officer yesterday. If this fax is returned, Brigitte does not need a return call back. Further follow-up needed? No Return Method of Communication:N/A Additional Information:N/A documented in this encounter Plan of Treatment Upcoming Encounters Date Type Department Care Team (Late st Contact Info) Description 10/30/2024 9:40 AM EDT Office Visit [facility] [place] [address] [place] [address] Tiago Franz MD [address] [facility] [address] [place] [id number] 01/20/2025 3:15 PM EST Office Visit [facility] Nephrology Amandeep [address] [place] [address] Crystal Osborne MD 0 [facility] [address] [place] [address] 09/25/2025 10:00 AM EDT Appointment [facility] VASCULAR 20 [facility] [address] [place] [address] Amaris Sommer [address] [place] [address] 09/25/2025 11:00 AM EDT Office Visit [facility] 20 [facility] [address] [place] [address] [address]Amaris [address] [place] [address] documented as of this encounter Goals Goal Patient Goal Type Associated Problems Recent Progress Patient-Stated? Author Eat better, exercise, reach an ideal body weight General No Vanna Rooney RMAyaz Stay Tobacco Free Lifestyle No Vanna Rooney RMA documented as of this encounter Visit Diagnoses Not on filedocumented in this encounter Care Teams Volleyball Player Relationship Specialty Start Date End Date Patsy Hair MD 100 [place] [address] PCP - General Family Medicine 07/19/13 Crystal Osborne MD [address] [facility] [address] [place] [address] Internal Medicine-Nephrology 12/06/23 documented as of this encounter
--- OUTSIDE RECORDS SUMMARY | 2024-10-06 16:24 | XMS_ITS | Encounter Summary ---
Author Organization [facility] [place] [address] Care Team Providers Care Food Service Specialist Name Role Phone Patsy Hair MD Primary Care Provider [phone] Crystal Osborne MD Unavailable [phone] Encounter Details Date Type Department Care Team [...] 9:40 AM EDT Office Visit [facility] [place] [address] [place] [phone] Tiago Franz MD 711 [place] [address] 01/20/2025 3:15 PM EST Office Visit [facility] Nephrology Amandeep [address] [place] [address] Crystal Osborne MD 830 [facility] [address] [place] [address] 09/25/2025 10:00 AM EDT Appointment [facility]ASCULAR [address] [place] [address] [address] [place] [address] Amaris Sommer APRN [address] [place] [address] [address] [place] [address] 09/25/2025 11:00 AM EDT Office Visit [facility] 20 [facility] [address] [place] [address] Amaris Sommer APRN [address] [place] [address] [address] [place] [address] documented as of this encounter Goals Goal Patient Goal Type Associated Problems Recent Progress Patient-Stated? Author Eat better, exercise, reach an ideal body weight General No Vanna Rooney RMA Stay Tobacco Free Lifestyle No Vanna Rooney RMA documented as of this encounter Visit Diagnoses Not on filedocumented in this encounter Care Teams Food Service Specialist Relationship Specialty Start Date End Date Patsy Hair MD 100 [place] [id number] PCP - General Family Medicine 07/19/13 Crystal Osborne MD [address] [address] Internal Medicine-Nephrology 12/06/23 documented as of this encounter
--- OUTSIDE RECORDS SUMMARY | 2024-10-06 16:24 | XMS_ITS | Clinical Summary ---
Author Organization [facility] Address [address] [place] [address] Phone Care Team Providers Care Clerk Name Role Phone Patsy Hair MD Primary Care Provider [phone] Crystal Osborne MD Unavailable [phone] Allergies No known active allergies Medications folic acid (FOLVITE) 1 mg Oral Tablet Take 1 mg by mouth daily. Active methotrexate 2.5 mg Oral Tablet Take 2.5 mg by mouth once a week. Take 6 tabs PO every week Active hydrOXYchloroQUI NE (PLAQUENIL) 200 mg Oral TabletIndication s:Rheumatoid arthritis, involving unspecified site, unspecified whether rheumatoid factor present ([facility]) 07/10/19 22 Active HUMIRA PEN 40 mg/0.8 mL SubQ Pen Injector KitIndications:R heumatoid arthritis, involving unspecified site, unspecified whether rheumatoid factor present ([facility]) 07/23/19 22 Active triamcinolone (KENALOG) 0.1 % [...] mL into the muscle every 30 days. [place]/syringe also please 1 mL 10/31/19 24 Active [...] factor present ([facility]),Vitamin B 12 deficiency,Gastr oesophageal reflux disease without esophagitis,Immu nocompromised,At herosclerosis of northern [place] artery of both lower extremities with intermittent [...] HFA Aerosol InhalerIndicatio ns:COPD with acute exacerbation ([facility]) Inhale 2 Puffs into the lungs 2 [...] 03/15/17 UDS: 06/01/18 GALO: 06/01/18 01/11/22 KEN #[id number] (as expected) Hill Santamaria MD Problem Noted [...] COPD (chronic obstructive pulmonary disease) Atherosclerosis of northern [place] ar addi of both lower extremities with [...] tubular adenoma [address] silva at [facility] 01/27/2021 Overview (01/27/2021): [facility] rheumatology Assessment & Plan (06/08/2024 7:02 PM [...] to renal disease 09/22/2023 12/17/2023 Atherosclerosis of northern [place] ar addi of both lower extremities with bilateral ulceration 01/11/2022 06/08/2024 Ulcer of extremity due to ch ronic venous insufficiency 01/11/2022 06/08/2024 Basal cell carcinoma of skin, unspecified 08/14/2018 08/10/2023 Overview (08/10/2023): Ileostomy in place 09/05/2015 8 Overview (09/05/2015): Due to diverticulitis surgery Encounters Date Type Department Care Team Description 09/24/2024 Refill [facility] [address] [place] [address] Patsy Hair MD Medication Refill 09/24/2024 Telephone [facility] [address] [place], [place] [address] Patsy Hair MD Relaying Information (Case Management Plan from [facility] faxed) 09/20/2024 8:45 AM EDT Clinical Support [...] reflux disease without esophagitis; Immunocompromised; Atherosclerosis of northern che[place] artery of both lower extremities with intermittent [...] CT scan 09/11/2024 Telephone [facility]PT[facility] [address] [place] [address] Yulissa Conti, Clerical Staff Referral 09/09/2024 [facility] [address] [place], [place] [id number] Crystal Osborne MD Medication Refill 09/03/[address] [address] Patsy Hair MD Symptoms (Only Use If Pt Pushes Back On Scheduling A Visit) (Hernia) 09/03/2024 Telephone [facility] ECHO VAS ATTN: Appointments in this department are performed at various locations in the community on our Cardiovascular mobile health unit. You can look online to verify your site or call [phone] [address] Promise Marroquin RN Results 09/02/2024 Refill [facility] [address] [place] [address] Patsy Hair MD Medication Refill 08/30/2024 11:16 AM EDT - 08/30/2024 11:59 PM EDT Hospital Encounter [address] [place] [address] Patsy Hair MD Screening for malignant neoplasm of respiratory organ; Personal history of tobacco use, presenting hazards to health Discharge Disposition: Home or Self Care 08/30/2024 Orders Only [facility] [address] [place] [address] Patsy Hair MD Screening for malignant neoplasm of respiratory organ (Primary Dx); Personal history of tobacco use, presenting hazards to health 08/27/[address] [address] Patsy Hair MD Medication Refill 08/26/2024 9:00 AM EDT Office Visit [facility] [address] [facility] [address] [place] [address] Amaris Sommer APRN PAD (peripheral artery disease) (Primary Dx); Claudication of lower extremity with history of revascularization; Atherosclerosis of northern [place] artery of both lower extremities with intermittent claudication; Stage 3a chronic kidney disease (HCC); Varicose veins of bilateral lower extremities with other complications; Cigarette nicotine dependence with nicotine-induced disorder; Rheumatoid arthritis of both hips, unspecified whether rheumatoid factor present (HCC) 08/23/2024 8:36 AM EDT - 08/23/2024 11:59 PM EDT Hospital Encounter [facility] [address] [facility] [place] [address] Amaris Sommer APRN PAD (peripheral artery disease); Claudication of lower extremity with history of revascularization Discharge Disposition: Home or Self Care 08/23/2024 Telephone [facility] [address] [place] [address] Patsy Hair MD Relaying Information (pt stating has had cramps in legs and feet at night time for the last 3 week/ pt is taking the potassium and looking for advice ) 08/22/2024 Travel 08/22/2024 Refill [facility] [address] [facility] [address] [place] [address] Hill Santamaria MD Medication Refill 08/10/2024 Refill [facility] [address] [place] [address] Patsy Hair MD Medication Refill 08/02/2024 Refill [facility] [address] [place] [address] Patsy Hair MD Medication Refill 08/01/2024 Refill [facility] [address] [place] [address] Patsy Hair MD Medication Refill 07/23/2024 Refill [facility] [address] [place] [address] Patsy Hair MD Medication Refill 07/21/2024 Refill [facility] [address] [place] [address] Patsy Hair MD Medication Refill [...] LENS ; Surgeon: Mitesh Hammond MD; Location: [facility]; Service: Ophthalmology Medical devices from this surgery are in the Medical Devices section. CATARACT REMOVAL 10/06/2011 Right RIGHT EYE CATARACT EXTRACTION WITH PHACOEMULSIFICATION AND INTRAOCULAR LENS ; Surgeon: Mitesh Hammond MD; Location: [facility]; Service: Ophthalmology Medical devices from this [...] AM EDT Office Visit [facility] [address] [address] Tiago Franz MD [address] [place] [address] DR [facility] 01/20/2025 3:15 PM EST Office Visit [facility] Nephrology Amandeep [address] [place] [address] Crystal Osborne MD [address] [facility] [address] [place] [address] 09/25/2025 10:00 AM EDT Appointment [facility] [address] [place] [address] JuneAmaris BANKING SERVICES CLERK [address] [facility] [address] [place], [place] [phone] 09/25/2025 11:00 AM EDT Office Visit [facility] [address] [facility] [address] [place] [address] JuneAmaris APRN [address] [place] [address] [address] [place] [address] Health Maintenance Due Date Last Done Comments [...] Rooney RMA Medical Devices Implanted Type Area Qualitative Field Project Manager Device Identifier Shelf Expiration Date Model / Serial / Lot Lens Intraocular 24.5 Diopter Acrysof Iq 13.0mm Length 6.0mm Aspheric Optic 0 Degree Modified-L Haptic - [id number] Implanted:Qty: 1 on 09/22/2011 by Mitesh Hammond MD at [facility] Left: Eye YE LAB:SURG 02/14/2016 [id number]. [id number] / [id number] / Lens Intraocular 23.5 Diopter Acrysof Iq 13.0mm Length 6.0mm Aspheric Optic 0 Degree Modified-L Haptic - [id number] Implanted:Qty: 1 on 10/06/2011 by Mitesh Hammond MD at [facility] YE LAB:SURG 06/13/2016 [id number]. [id number] / [id number] / Procedures Procedure Name Priority Date/Time Associated Diagnosis Comments COMPREHENSIVE METABOLIC PANEL Routine 09/20/2024 8:42 AM EDT Decreased potassium in the blood VITAMIN D 25 HYDROXY Routine 09/11/2024 11:17 AM EDT Rheumatoid arthritis, involving unspecified site, unspecified whether rheumatoid factor present (HCC) Vitamin B 12 deficiency Gastroesophageal reflux disease without esophagitis Immunocompromised Atherosclerosis of northern [place] artery of both lower extremities with intermittent [...] reflux disease without esophagitis Immunocompromised Atherosclerosis of northern [place] artery of both lower extremities with intermittent [...] reflux disease without esophagitis Immunocompromised Atherosclerosis of northern [place] artery of both lower extremities with intermittent [...] reflux disease without esophagitis Immunocompromised Atherosclerosis of northern [place] artery of both lower extremities with intermittent [...] reflux disease without esophagitis Immunocompromised Atherosclerosis of northern [place] artery of both lower extremities with intermittent [...] reflux disease without esophagitis Immunocompromised Atherosclerosis of northern [place] artery of both lower extremities with intermittent [...] of tobacco use, presenting hazards to health HI US LOWER EXTREMITY ARTERIAL DUPLEX COMPLETE Routine 08/23/2024 9:57 AM EDT PAD (peripheral artery disease) Claudication of lower extremity with history of revascularization COLONOSCOPY Routine 06/07/2023 1:47 PM EDT Weight loss Nausea MM MAMMO DIGITAL YOVANY SCREEN BILAT Routine 04/17/2023 9:09 AM EST Unintended weight loss Encounter for screening mammogram for breast cancer RAILWAY SIGNALLING ENGINEER CYTOLOGY REQUEST (PAP ONLY) Routine 03/30/2022 11:44 [...] 09/20/2024 4:30 PM EDT [facility] Bili Total 0.3 0.2 - 1.3 mg/dL 09/20/2024 4:[address] [facility] ALT 12 <=41 U/L 09/20/2024 4:[address] [facility] AST 21 <=40 U/L 09/20/2024 4:[address] [facility] Alk Phos 59 36 - 123 U/L 09/20/2024 4:30 PM EDT [facility] eGFR (CKD-EPIcr 2020) 43(L) >=60 mL/min/1.7 3 m2 09/20/2024 4:30 PM EDT [facility] Comment:Estimated GFR was ca lculated using the CKD-EPIcr (2020) equation refit without race. The equation is recommended by the National Kidney Foundation - [place] Society of Nephrology Task Force. Blood VENOUS BLOOD / Unknown Venipuncture / Unknown 09/20/2024 8:42 AM EDT 09/20/2024 8:42 AM EDT us Patsy Hair MD CHEMISTRY ORDERABLES Final Res ult [facility] [address] [facility] , [place] [address] * (ABNORMAL) VITAMIN B12/ FOLIC ACID (09/11/2024 11:17 AM EDT) Vitamin B12 >1,600(H) 232 - 1,245 pg/mL 09/11/2024 5:[address] [facility] Folate >16.00 >=4.80 ng/mL 09/11/2024 5:04 PM EDT [facility], [facility] Blood VENOUS BLOOD / Unknown Venipuncture / Unknown 09/11/2024 11:17 AM EDT 09/11/2024 11:17 AM EDT Narrative [facility] - 09/11/2024 5:04 PM EDT Ingestion of eh doses of biotin (>5 mg/day) taken within 8 hours of drawing blood sample can interfere with this immunoassay test. us Patsy Hair MD CHEMISTRY ORDERABLES Final Res ult Performing Organization Address [facility] de Phone Number [facility] [employer] [address] [place] [address] , [place] [address] * TSH REFLEX TO FT4 (09/11/2024 11:17 AM EDT) Pathologist [facility] TSH Reflex 1.730 0.270 - 4.200 mcIU/mL 09/11/2024 3:17 PM EDT [facility] [employer] Blood VENOUS BLOOD / Unknown Venipuncture / Unknown 09/11/2024 11:17 AM EDT 09/11/2024 11:17 AM EDT Narrative [facility] [employer] - 09/11/2024 3:17 PM EDT Ingestion of eh doses of biotin (>5 mg/day) taken within 8 hours of drawing blood sample can interfere with this immunoassay test. us Patsy Hair MD CHEMISTRY ORDERABLES Final Res ult Performing Organization Address [facility] de Phone Number [facility] [employer] [address] [place] [address] , [place] [address] * VITAMIN D 25 HYDROXY (09/11/2024 11:17 AM EDT) Pathologist [facility] Vit D 25 OH 44.0 30.0 - 150.0 ng/mL 09/11/2024 5:04 PM EDT [employer] Comment: Preferred: >= 30 ng/mL Insufficient: 21-29 [...] ORDERABLES Final Res ult Performing Organization Address [facility] Co de Phone Number [facility] [address] [facility] , [place] [address] * (ABNORMAL) CBC WITH DIFF (09/11/2024 11:17 AM EDT) [facility] WBC 7.6 3.7 - 10.3 x10(3)/mcL 09/11/2024 [...] 2:35 PM EDT [facility] Hanson Percent 6.2 % 09/11/2024 2:35 PM EDT [facility] Eos Percent 3.2 % 09/11/2024 2:35 PM EDT [facility], [facility] Baso Percent 0.5 % 09/11/2024 2:35 PM EDT [facility] Neut # 4.1 1.6 - 6.1 x10(3)/[facility] 09/11/2024 2:35 PM EDT [facility], [facility] Comment:Neutrophils equals s egs plus bands IMMGRAN# 0.0 0.0 - 0.1 x10(3)/[facility] 09/11/2024 2:35 PM EDT [facility], [facility] Comment:Automated count of m etamyelocytes, myelocytes and promyelocytes. An absolute IG <0.1 is reported as 0.0. Lymph # 2.8 1.2 - 3.9 x10(3)/[facility] 09/11/2024 2:35 PM EDT [facility], [facility] Hanson # 0.5 0.3 - 0.9 x10(3)/[facility] 09/11/2024 2:35 PM EDT [facility], [facility] Eos# 0.2 0.0 - 0.5 x10(3)/[facility] 09/11/2024 2:35 PM EDT [facility], [facility] Baso # 0.0 0.0 - 0.1 x10(3)/[facility] 09/11/2024 2:35 PM EDT [facility], [facility] Blood VENOUS BLOOD / Unknown Venipuncture / Unknown 09/11/2024 11:17 AM EDT 09/11/2024 11:17 AM EDT us Patsy Hair MD HEMATOLOGY ORDERABLES Final Re sult [facility] [address] [facility] , [place] [address] * LIPID SCREEN (09/11/2024 11:17 AM EDT) Cholesterol 189 <200 mg/dL 09/11/2024 3:17 PM EDT [facility], [facility] Comment: < 200 Desirable 200 - 239 Borderline High >= 240 High Triglyceride 93 <150 mg/dL 09/11/2024 3:17 PM EDT [facility], [facility] Comment: < 150 Normal 150 - 199 Borderline High 200 - 499 High >= 500 Very High HDL 86 >=40 mg/dL 09/11/2024 3:17 PM EDT [employer] Comment: > 60 Optimal 40 - 60 Acceptable < 40 Low LDL Calculated 87 <100 mg/dL 09/11/2024 3:17 PM EDT [employer] Comment: < 100 Optimal 100 - 129 Near or above optimal 130 - 159 Borderline High 160 - 189 High >= 190 Very High The National Institutes of Health (NIH) equation is used for all lipid panels that report calculated LDL (LDL-C). Non-HDL-C Calculated 103 <=129 mg/dL 09/11/2024 3:17 PM EDT [employer] Comment: <130 Desirable 130-159 Above Desirable 160-189 Borderline High 190-219 High >= 220 Very High Fasting Specimen? Yes None 025 3:17 PM EDT [employer] Blood VENOUS BLOOD / Unknown Venipuncture / Unknown 09/11/2024 11:17 AM EDT 09/11/2024 11:17 AM EDT us Patsy Hair MD CHEMISTRY ORDERABLES Final Res ult [facility] [employer] [address] [facility] , [place] [address] * CT LUNG CANCER SCREENING LOW DOSE [...] contact the office of the ordering clinician. [email or web address] Narrative 08/30/2024 11:[address] LUNG CANCER SCREENING LOW DOSE 08/30/2024 11:35 AM CLINICAL HISTORY: Asymptomatic patient meeting NCCN high risk criteria for lung screening. Z12.2-Encounter for screening for malignant neoplasm of respiratory dwthdp-XXZ-89-CM Z87.891-Personal history of nicotine fydvvhgzzr-EVD-51-CM. COMPARISON: 08/30/2023 07/27/2021 PROCEDURE COMMENTS: Noncontrast, low-dose, [...] Diameter : 26.2 cm SSDE Source : [facility] FINDINGS: No suspicious pulmonary nodule. No acute inflammatory process. Heart and mediastinum unremarkable. There is a ventral hernia in the upper abdomen containing colon. No definite obstruction or incarceration. Coronary artery calcification: Moderate. FOLLOW-UP CODE: Lung-RADS Category 1: Negative: No nodule or definitely benign nodule(s). Continued ANNUAL LOW-DOSE SCREENING CT SCAN (IMG 03548) suggested if age <78. Lung-RADS Modifier S: Clinically Significant or Potentially Significant Findings (Non Lung Cancer) Procedure Note Jose Calix MD - 08/30/2024 CT LUNG CANCER SCREENING LOW DOSE 08/30/2024 11:35 AM CLINICAL HISTORY: Asymptomatic patient meeting NCCN high risk criteria forlung screening. Z12.2-Encounter for screening for malignant neoplasm ofrespiratory foywov-LAQ-88-CM Z87.891-Personal history of nicotine afjcrhfmnm-TYH-52-CM. COMPARISON: 08/30/2023 07/27/2021 PROCEDURE COMMENTS: Noncontrast, low-dose, [...] Continued ANNUAL LOW-DOSE SCREENING CT SCAN ([place] 73546)suggested if age <78. Lung-RADS Modifier S: Clinically [...] please contactthe office of the ordering clinician. [email or web address] Patsy Hair MD [facility] CT ORDERABLES Final Result * [facility] LOWER EXTREMITY ARTERIAL DUPLEX COMPLETE (08/23/2024 [...] flow pattern is noted in the left EMAIL PRODUCTION SPECIALIST and SFA. Monophasic doppler flow pattern in the O AND M SUPERVISOR and NIURKA arteries. * Arterial atherosclerosis noted [...] flow pattern is noted in the left EMAIL PRODUCTION SPECIALIST and SFA. Monophasic doppler flow pattern in the O AND M SUPERVISOR and NIURKA arteries. * Arterial atherosclerosis noted [...] of theleft peroneal artery. us Amaris Sommer BANKING SERVICES CLERK IMG VASCULAR ORDERABLES Final R esult * [...] Palomares MD Performing Provider Kayla Gomez RN Boat Tender Terell Aiken CRNA CRNA Medications See Anesthesia [...] EST Impressions 04/17/2023 10:20 AM EST Negative (SHQ-Nynzrzup-5) ~ RECOMMENDATION: Routine screening mammogram in 1 [...] the next mammogram, in accordance with the [place] [employer] and the Society of Breast Imaging recommendations. Narrative 04/17/2023 10:20 AM EST Procedure:MM MAMMO DIGITAL YOVANY SCREEN BILAT ~ Reason for exam: screening, asymptomatic. R63.4-Abnormal weight ihrm-YMH-37-CM Z12.31-Encounter for screening mammogram for malignant neoplasm of pqgxkt-HDS-42-CM ~ MM MAMMO DIGITAL YOVANY SCREEN BILAT Bilateral CC and MLO view(s) were taken. There are scattered fibroglandular densities. Prior study comparison: Compared with prior studies the most recent being 04/27/21, 11/15/18 No mammographic evidence of malignancy. ~ Procedure Note Amparo Ugalde MD - 04/17/2023 Procedure:MM MAMMO DIGITAL YOVANY SCREEN BILAT ~ Reason for exam: screening, asymptomatic. R63.4-Abnormal weight qpcx-MXN-05-CM Z12.31-Encounter for screening mammogram for malignant neoplasm of wthnoc-TJQ-45-CM ~ MM MAMMO DIGITAL YOVANY SCREEN BILAT Bilateral CC and MLO view(s) were taken. There are scattered fibroglandular densities. Prior study comparison: Compared with prior studies the most recentbeing 04/27/21, 11/15/18 No mammographic evidence of malignancy. ~ IMPRESSION: Negative (SWN-Khcxtuww-3) ~ RECOMMENDATION: Routine screening mammogram in 1 [...] the next mammogram, in accordance with the [place] [employer] and the Society of Breast Imaging recommendations. us Patys Hair MD IM MAMMOGRAPHY ORDERABLES Fin al Result * (ABNORMAL) RAILWAY SIGNALLING ENGINEER CYTOLOGY REQUEST (PAP ONLY) (03/30/2022 11:44 AM EST) CASE REPORT Gynecologic Cytology Report Case: [id number] Authorizing Provider: Patsy Hair MD Collected: 03/30/2022 1144 Ordering Location: [facility] Received: 03/30/2022 1144 First Screen: Noah Fermin, NANCY Pathologist: Shelli Cunningham MD Specimen: LIQUID-BASED PAP - CERVICAL/ENDOCERV ICAL, Cervix, Endocervical 03/31/2022 12:50 PM EST [facility] PAP FINAL DIAGNOSIS Low grade squamous intraepithelial lesion(A) 03/31/2022 12:50 PM EST [facility] at 1250 EST MICROSCOPIC DESCRIPTION Microscopic examination is performed and the findings corroborate the diagnosis. 03/31/2022 12:50 PM EST [facility] PAP SMEAR ADEQUACY Satisfactory for evaluation 03/31/2022 12:50 PM EST [facility] ENDOCERVICAL T-ZONE Transformation zone absent. 03/31/2022 12:50 PM EST [facility] EMBEDDED IMAGES 12:50 PM EST [facility] PAP DISCLAIMER The Pap Smear is a screening test that aids in the detection of cervical cancer and cancer precursors. Both false positive and false negative results can occur. The test should be used at regular intervals, and positive results should be confirmed before definitive therapy. Processed using the ThinPrep Quahogger Automated cytology screening device ([employer] 03/31/2022 12:50 PM EST [facility] Thin Prep ENDOCERVICAL STRUCTURE / Unknown 03/30/2022 11:44 AM EST 03/30/2022 11:44 AM EST us Patsy Hair MD CYTOLOGY ORDERABLES Final Resu lt [facility] [address] [place] [address] [phone] * COLOGUARD (05/18/2020 10:58 AM EDT) COLOGUARD CLINICAL REPORT Negative Not Applicable [facility] Comment: A negative result indicates [...] Alexander et al, N Engl J Med 2014;370(14):3044-7515) The normal value (reference range) for this assay is negative. COLOGUARD RE-SCREENING RECOMMENDATION: Periodic routine colorectal cancer screening is an important part of preventive healthcare for asymptomatic persons at average risk for colorectal cancer. Following a negative Cologuard result, the [place] Cancer Society and U.S. Multi-Society Task Force screening guidelines recommend a Cologuard re-screening interval of 3 years. References: [place] [employer] Society (ACS). Colorectal cancer prevention and early detection. [place], [place]: [place] [employer] Society; [updated 2015Jun 06]. https://www.cancer.org/cancer/nbkqh-efnmqd-rrtmhd/fktdehyhk-swkfepdyo-tcmrqfj/ac s-rec ommendations.html. Accessed October 13, 2017; Karl DK, Efrain LYN, Isacc DOBBS, Colorectal Cancer Screening: Recommendations for Physicians and Patients from the U.S. Multi-Society Task Force on Colorectal Cancer Screening, Am J Gastroenterology 2017; 112:6773-1733. TEST TYPE: Composite algorithmic analysis of stool [...] interval of every 3 years by the [place] Cancer Society and U.S. Multi-Society Task Force. [...] can be accessed at the following location: www.[employer].Independent IP/results. Additional description of the Cologuard test process, warnings and precautions can be found at www.cologuardtest.com. Rx only. Stool specimen (specimen) 05/18/2020 10:58 AM EDT 05/19/2020 5:43 PM EDT us Patsy Hair MD [employer] [facility] - ORDERABLES Fin al Result [employer] [address] [place] [address], [facility] [place] [address] * HEPATITIS C ANTIBODY - SCREENING (09/03/2016 9:20 AM EDT) Hep C Ab Negative Negative [facility] Blood specimen (specimen) 09/03/2016 9:20 AM EDT 09/03/2016 3:54 PM EDT us Patsy Hair MD HEMATOLOGY ORDERABLES Final Re s[place] [address] from Last 3 Months or Most Recently Relevant to Health Maintenance Insurance DUAL COMPLETE HMO [place] D[place] O [place] Care Teams Clerk Relationship Specialty Start Date End Date Patsy Hair MD [address] [place] [id number] PCP - General Family Medicine 07/19/13 Crystal Osborne MD [address] [phone] Internal Medicine-Nephrology 12/06/23
--- OUTSIDE RECORDS SUMMARY | 2024-10-06 16:24 | XMS_ITS | Encounter Summary ---
Author Organization [place] [address] Care Team Providers Care Stock Layer Name Role Phone Patsy Hair MD Primary Care Provider [phone] Crystal Osborne MD Unavailable [phone] Reason for Visit * Reason Onset Date Comments Results 09/15/2024 Lab result given Encounter Details Date Type Department Care Team (Late Contact Info) Description 09/15/2024 Results Follow-Up [facility] [address] [place] [id number] Patsy Hair MD [address] [place] [address] CBC WITH DIFF, COMPREHENSIVE METABOLIC PANEL, LIPID [...] 9:40 AM EDT Office Visit [facility] [place] [address] [place] [address] Tiago Franz MD [address] [facility] [address] [address] [place] [id number] 01/20/2025 3:15 PM EST Office Visit [facility] Nephrology Amandeep [address] [place] [address] Crystal Osborne MD 0 [facility] [address] [place] [address] 09/25/2025 10:00 AM EDT Appointment [facility] [address] [facility] [address] [place] [address] [place] [address] 09/25/2025 11:00 AM EDT Office Visit [facility] 20 [facility] [address] [place] [address] [facility] [address] [place] [address] documented as of this encounter Goals Goal Patient Goal Type Associated Problems Recent Progress Patient-Stated? Author Eat better, exercise, reach an ideal body weight General No Vanna Rooney RMA Stay Tobacco Free Lifestyle No Vanna Rooney RMA documented as of this encounter Visit Diagnoses Not on filedocumented in this encounter Care Teams Stock Layer Relationship Specialty Start Date End Date Patsy Hair MD [address] [place] [address] PCP - General Family Medicine 07/19/13 Crystal Osborne MD [address] [facility] [address] [place] [address] Internal Medicine-Nephrology 12/06/23 documented as of this encounter
--- OUTSIDE RECORDS SUMMARY | 2024-10-06 16:24 | XMS_ITS | Encounter Summary ---
Author Organization [place] [address] Care Team Providers Care Therapist Phys Name Role Phone Patsy Hair MD Primary Care Provider [phone] Crystal Osborne MD Unavailable [phone] Reason for Visit * Reason Comments Medication Refill Encounter Details Date Type Department Care Team (Late st Contact Info) Description 08/22/2024 Refill [facility] 20 [facility] [address] [place] [phone] Hill Santamaria MD 20 [facility] [address] [place] [address] Medication Refill Social History Tobacco Use Types [...] 9:40 AM EDT Office Visit [facility] [place] [address] [place] [address] Tiago Franz MD 1 [place] [address] 01/20/2025 3:15 PM EST Office Visit [facility] Nephrology Amandeep [address] [place] [address] Crystal Osborne MD [address] [facility] [address] [place] [address] 09/25/2025 10:00 AM EDT Appointment [facility] 20 [facility] [address] [place] [address] June, Amaris Camacho POURER OFF [address] [facility] [address] [place] [address] 09/25/2025 11:00 AM EDT Office Visit [facility] 20 [facility] [address] [place] [address] JuneAmaris APRN [address] [facility] [address] [place], [place] [id number] documented as of this encounter Goals Goal [...] documented as of this encounter Care Teams Therapist Phys Relationship Specialty Start Date End Date Patsy Hair MD [address] [place], [place] [id number] PCP - General Family Medicine 07/19/13 Crystal Osborne MD [address] [place] [address] Internal Medicine-Nephrology 12/06/23 documented as of this encounter
--- OUTSIDE RECORDS SUMMARY | 2024-10-06 16:24 | XMS_ITS | Encounter Summary ---
Author [place] [address] Care Team Providers Care Psychiatric Nurse Practitioner Name Role Phone Patsy Hair MD Primary Care Provider [phone] Crystal Osborne MD Unavailable [phone] Encounter Details Date Type Department Care Team (Late st Contact Info) Description 09/20/2024 Orders Only [facility] 100 [place] [phone] Patsy Hair MD [address] [place] [address] Decreased potassium in the blood (Primary Dx) [...] 9:40 AM EDT Office Visit [facility] [place] [address] [place] [address] Tiago Franz MD [address] [facility] [place] [place] [address] 01/20/2025 3:15 PM EST Office Visit [facility] Nephrology Amandeep [address] [place] [address] Crystal Osborne MD [address] [facility] [address] [place] [address] 09/25/2025 10:00 AM EDT Appointment [facility] [address] [facility] [address] [place] [address] Amaris Sommer APRN 20 [facility] [address] [address] 09/25/2025 11:00 AM EDT Office Visit [facility] [address] [facility] [address] [place] [address] Amaris Sommer APRN [address] [facility] [address] [place] [address] documented as of this encounter [...] 09/20/2024 4:30 PM EDT [facility] eGFR (CKD-EPIcr 2020) 43(L) >=60 mL/min/1.7 3 m2 09/20/2024 4:30 PM EDT [facility] Comment:Estimated GFR was ca lculated using the CKD-EPIcr (2020) equation refit without race. The equation is recommended by the National Kid[employer] Foundation - [place] [employer] of Nephrology Task Force. Blood VENOUS BLOOD / Unknown Venipuncture / Unknown 09/20/2024 8:42 AM EDT 09/20/2024 8:42 AM EDT us Patsy Hair MD CHEMISTRY ORDERABLES Final Res ult [facility] [address] [facility], [address] [place] [id number] documented in this encounter Visit Diagnoses Diagnosis Decreased potassium in the blood- Primary Hypopotassemia documented in this encounter Care Teams Psychiatric Nurse Practitioner Relationship Specialty Start Date End Date Patsy Hair MD [address] [place] [address] PCP - General Family Medicine 07/19/13 Crystal Osborne MD [address] [facility] [address] [place] [address] Internal Medicine-Nephrology 12/06/23 documented as of this encounter
--- NOTE | 2024-10-06 16:37 | EXP.PN ---
Subjective *Date: 10/06/24 *Time: 16:37 Interval history: Patient is seen and evaluated at the bedside, patient denies chest pain shortness of breath nausea vomiting today. complains of wheezing in chest Exam Data for Last 24 hours Vital signs and Labs for Last 24 Hours: Temp Pulse Resp BP Pulse Ox O2 Del Method O2 Flow Rate 98.2 F 119 H 18 144/92 H 92 L Nasal Cannula 1 10/06/24 08:00 10/06/24 12:54 10/06/24 08:00 10/06/24 08:00 10/06/24 12:54 10/06/24 14:45 10/06/24 14:45 I & O for Last 24 hours: Intake & Output 10/03/24 10/04/24 10/05/24 10/06/24 23:59 23:59 23:59 23:59 Intake Total 450 / 950 1944 / 1944 720 / 720 Output Total 1700 / 1700 750 / 750 900 / 900 Balance -1250 / -750 1194 / 1194 -180 / -180 Weight 49.215 kg 48.4 kg 50.916 kg Microbiology Reports for the Last 24 Hours: Microbiology 10/04/24 13:55 Blood Blood Culture - Preliminary NO GROWTH AFTER 48 HOURS 10/04/24 13:55 Blood Blood Culture - Preliminary NO GROWTH AFTER 48 HOURS Constitutional Constitutional: no acute distress *Routine HEENT Exam Head: Present normocephalic Eye: Present EOMI and PERRL ENT: Present mucous membranes moist *Routine Neck Exam Neck: Present supple; Absent lymphadenopathy *Routine Respiratory Exam Respiratory: Present decreased breath sounds and wheezes *Routine Cardiovascular Exam Cardiovascular: Present RRR *Routine Abdominal Exam Abdominal: Present soft and normoactive bowel sounds; Absent tenderness *Routine Extremities Exam Extremities: Absent cyanosis, clubbing or edema *Routine Skin Exam Skin: Present warm; Absent rash *Routine Neurological Exam Neurological: Present alert and oriented X3 Assessment and Plan *Assessment and plan (1) Acute exacerbation of chronic obstructive pulmonary disease: Status: Acute Category: Medical Code(s): J44.1 - Chronic obstructive pulmonary disease with (acute) exacerbation (2) Shortness of breath: Status: Inactive Category: Medical Code(s): R06.02 - Shortness of breath (3) Fibrosis of lung: Status: Acute Category: Medical Code(s): J84.10 - Pulmonary fibrosis, unspecified (4) Smoking greater than 30 pack years: Status: Acute Category: Social Hx Code(s): F17.210 - Nicotine dependence, cigarettes, uncomplicated (5) Pulmonary emphysema: Status: Acute Qualifiers: Emphysema type: unilateral Qualified Code(s): J43.0 - Unilateral pulmonary emphysema [MacLeod's syndrome] Category: Medical Code(s): J43.9 - Emphysema, unspecified (6) Rheumatoid arthritis: Status: Acute Qualifiers: Rheumatoid arthritis location: unspecified site Rheumatoid factor presence: unspecified presence Qualified Code(s): M06.9 - Rheumatoid arthritis, unspecified Category: Medical Code(s): M06.9 - Rheumatoid arthritis, unspecified (7) SIRS (systemic inflammatory response syndrome): Problem Comment: Present on admission Status: Acute Category: Medical Code(s): R65.10 - Systemic inflammatory response syndrome (SIRS) of non-infectious origin without acute organ dysfunction Plan 64-year-old female with RA, interstitial lung disease, COPD on immune modulating therapy. Presents with 24 hours of worsening shortness of breath. In mild distress on arrival to the ER. Had some report response to nebulizers but was still having significant work of breathing. COPD exacerbation Interstitial lung disease SIRS - Continue DuoNebs every 6 hours scheduled, lev albuterol every 4 hours as needed - Continue 40 mg prednisone p.o. for 5 days. on cefdinir for 5 days of therapy for COPD exacerbation - Recommend follow-up with pulmonology in 2 to 3 weeks after discharge when stable to discharge home - Increased interstitial/reticular markings on chest x-ray per my review on admission. No focal consolidation or effusions noted. continue breathing treatment and steroids today Suspected HFpEF exacerbation - Last echo performed 07/19/2021. Had normal EF at 55%. Did not appear to have diastolic dysfunction at that time. Repeat echo obtained. Presentation concerning for CHF exacerbation with elevated BNP of 1100 and edema in her legs. - Repeat echo obtained that preliminarily shows EF preserved, - resume home Lasix at increased dose of 40 mg daily while admitted Continue home medications for chronic conditions as follows: - Lipitor 40 mg daily - Vraylar 1.5 mg daily - Plavix 75 mg daily - Flexeril 10 mg every 8 hours as needed - Lexapro 20 mg daily for mood disorder - Famotidine 40 daily for GERD - Continue gabapentin 800 mg twice a day for neuropathy - Continue mirtazapine 15 mg nightly for sleep and mood - Continue Xarelto 2.5 mg twice daily Full code Cardiac diet Xarelto as above continue above management and monitor overnight, likely dc 1-2 days pending improvement
--- NOTE | 2024-10-06 18:26 | PC.NURSE ---
nO ACUTE CHANGES SINCE PREVIOUS ASSESSMENT. 1LNC FOR O2 SUPPORT. HAS RESTED IN BED FOR MOST OF SHIFT. WHEEZING NOTED ON AUSCULTATION. INTERMITTENT COUGH ALSO NOTED.
[2024-10-06] MEDS: PANTOPRAZOLE 40MG TABLET 40 MG PO (20:00)
[2024-10-06] MEDS: MIRTAZAPINE 15 MG TABLET PO (20:00)
[2024-10-06] MEDS: ACETAMINOPHEN 325MG TAB 650 MG PO (20:05)
--- NOTE | 2024-10-07 02:14 | PC.NURSE ---
Pt AOx4, pleasant. Ambulated in the hallway with x1 assist earlier in the shift. Walked around the floor twice. She is currently on 1L O2. Resting in bed with eyes closed. Respirations even and unlabored. Bed low, locked, and call light is in reach.
[2024-10-07 04:00] VITALS: BP 122/88; PULSE 108; RESP 16; TEMP 36.6; O2SAT 99; BMI 24.7
[2024-10-07] MEDS: IPRATROPIUM/ALBUTEROL 3 ML NEB IH ×2 (06:23→10:22)
[2024-10-07 06:24] VITALS: PULSE 83; PULSE 87; O2SAT 95
[2024-10-07] MEDS: FLUTICASONE/UMECLIDIN/VILANTER 200/62.5/25MCG INHALER 1 PUFF IH (06:24)
[2024-10-07 06:25] LABS: Hematocrit 40.0 % (37.0-47.0); Hemoglobin 13.3 g/dL (12.2-16.2); Immature Granulocytes % 1.2 %; Mean Corpuscular HGB Conc 33.3 g/dL (31.8-35.4); Mean Corpuscular Hemoglobin 31.2 pg (27.0-31.2); Mean Corpuscular Volume 93.9 fl (81-99); Nucleated Red Blood Cells % 0 %; Platelet Count 222 K/mm3 (142-424); Red Blood Count 4.26 M/mm3 (4.20-5.40); Red Cell Distribution Width-SD 51.6 fL; White Blood Count 15.4 K/mm3 (4.8-10.8)
[2024-10-07 06:30] LABS: Chloride 99 mmol/L (98-107); Potassium 4.1 mmoL/L (3.5-5.1); Sodium 138 mmol/L (136-145)
[2024-10-07 06:33] LABS: Anion Gap 11.1 mEq/L (5-15); Blood Urea Nitrogen 25 mg/dl (7-17); Calcium 9.5 mg/dl (8.4-10.2); Carbon Dioxide 32 mmol/L (22.0-30.0); Creatinine Clearance Estimated 35 mL/min (50-200); Creatinine,Serum 1.30 mg/dl (0.52-1.04); Estimated Glomerular Filt Rate 42 ml/min (>60); GFR (African American) 50 ML/MIN (>60); Glucose 104 mg/dl (74-100)
[2024-10-07 08:00] VITALS: BP 120/82; PULSE 100; RESP 16; TEMP 36.7; O2SAT 93
[2024-10-07] MEDS: ATORVASTATIN 40MG TABLET 40 MG PO (08:47)
[2024-10-07] MEDS: FAMOTIDINE 20MG TABLET 40 MG PO (08:47)
[2024-10-07] MEDS: FUROSEMIDE 40 MG TABLET PO (08:47)
[2024-10-07] MEDS: CLOPIDOGREL 75MG TAB 75 MG PO (08:47)
[2024-10-07] MEDS: ESCITALOPRAM 20MG TABLET 20 MG PO (08:47)
[2024-10-07] MEDS: POTASSIUM CHLORIDE 20MEQ TAB 40 MEQ PO (08:48)
[2024-10-07] MEDS: CEFDINIR 125MG/5ML ORAL SUSP 60ML 300 MG PO (08:49)
[2024-10-07] MEDS: GABAPENTIN 800MG TABLET 800 MG PO (08:54)
[2024-10-07 10:22] VITALS: PULSE 80; PULSE 82
--- NOTE | 2024-10-07 13:06 | EXP.DC.SUM ---
General Admission date:: 10/04/24 HPI HPI HPI: Ms. Gonzalez is a 64-year-old female with rheumatoid arthritis, on immune modulating therapy, continues to smoke cigarettes, and has progressing interstitial lung disease. Presented to the ER with complaint of worsening shortness of breath over the past 24 hours. Has had a mildly productive cough today. Denies any fever or chills. No nausea or vomiting. No known recent sick contacts. Last saw pulmonology in April and is supposed to be using Anoro inhaler. On arrival to the ED, found to have low oxygen of about 90% on room air with increased work of breathing. Also found to be tachypneic and tachycardic. Initiated on supplemental oxygen for goal sats in the mid 90s. Received nebulizer treatment with some improvement in shortness of breath but remained tachycardic and tachypneic. White count of 11.6. Elevated temperature at 99.7, not frankly febrile. BNP elevated 1170. Medicine consulted for admission and further management due to COPD exacerbation given underlying immunosuppression, risk of decompensation, and initial oxygen requirement. Increased work of breathing noted when entering the room. Prolonged expiratory phase. Able to complete short sentences. Unable to give long answers due to dyspnea. Appears chronically ill. No nausea or vomiting. Denies any chest pain. Does have some edema in her right leg. Says this is increased recently. Hospital Course Hospital Course Hospital Course: Janee Gonzalez is a 64-year-old female who presented with shortness of breath and was admitted for acute COPD exacerbation. #Acute hypoxic respiratory failure #Acute COPD exacerbation ? Presented with shortness of breath, restricted airway. VBG did not show acute hypercapnia. ? Respiratory panel normal. CXR without infection. ? Clinically improved with DuoNebs, steroids, cefdinir. Continues to be mildly wheezy, but ambulating without issues. Weaned from 2 L to room air. ? Discharged with Trelegy, prednisone, doxycycline, nicotine gum. ? Will follow-up with PCP and pulmonology. #HFpEF exacerbation ? Improved with IV Lasix diuresis. Initial BNP 1170. ECHO shows LVEF 50%. ? Increased Lasix from 20 to 40 mg daily. ? Referred to cardiology to follow-up within 2 weeks. Continue home medications for chronic conditions as follows: - Lipitor 40 mg daily - Vraylar 1.5 mg daily - Plavix 75 mg daily for CAD - Flexeril 10 mg every 8 hours as needed - Lexapro 20 mg daily for mood disorder - Famotidine 40 daily for GERD - Continue gabapentin 800 mg twice a day for neuropathy - Continue mirtazapine 15 mg nightly for sleep and mood - Continue Xarelto 2.5 mg twice daily Exam Data for Last 24 hours Vital signs and Labs for Last 24 Hours: Temp Pulse Resp BP Pulse Ox O2 Del Method O2 Flow Rate 98.1 F 82 16 120/82 93 L Room Air 2 10/07/24 08:00 10/07/24 10:22 10/07/24 08:00 10/07/24 08:00 10/07/24 08:00 10/07/24 10:42 10/07/24 06:24 Laboratory Results - last 24 hr 10/07/24 06:12: WBC 15.4 H D, RBC 4.26, Hgb 13.3, Hct 40.0, MCV 93.9, MCH 31.2, MCHC 33.3, RDW 14.8, Plt Count 222, MPV 12.4 H, Neut % (Auto) 69.8, Lymph % (Auto) 22.9, Morris % (Auto) 5.6, Eos % (Auto) 0.3, Baso % (Auto) 0.2, Neut # (Auto) 10.8 H, Lymph # (Auto) 3.5, Morris # (Auto) 0.9, Eos # (Auto) 0.1, Baso # (Auto) 0.0, Sodium 138, Potassium 4.1 D, Chloride 99, Carbon Dioxide 32 H, Anion Gap 11.1, BUN 25 H D, Creatinine 1.30 H, Estimated Creat Clear 35, Estimated GFR 42 L, Est GFR ( Amer) 50 L, Glucose 104 H, Calcium 9.5 I & O for Last 24 hours: Intake & Output 10/04/24 10/05/24 10/06/24 10/07/24 23:59 23:59 23:59 23:59 Intake Total 450 / 950 1944 / 1944 1140 / 1362 1162 / 1162 Output Total 1700 / 1700 750 / 750 1150 / 1150 0 / 0 Balance -1250 / -750 1194 / 1194 -10 / 212 1162 / 1162 Weight 49.215 kg 48.4 kg 50.916 kg 50.009 kg Microbiology Reports for the Last 24 Hours: Microbiology 10/04/24 13:55 Blood Blood Culture - Preliminary NO GROWTH AFTER 48 HOURS 10/04/24 13:55 Blood Blood Culture - Preliminary NO GROWTH AFTER 48 HOURS Constitutional Constitutional: no acute distress *Routine HEENT Exam Head: Present normocephalic Eye: Present EOMI and PERRL ENT: Present mucous membranes moist *Routine Neck Exam Neck: Present supple; Absent lymphadenopathy *Routine Respiratory Exam Respiratory: Present wheezes *Routine Cardiovascular Exam Cardiovascular: Present RRR *Routine Abdominal Exam Abdominal: Present soft and normoactive bowel sounds; Absent tenderness *Routine Extremities Exam Extremities: Absent cyanosis, clubbing or edema *Routine Skin Exam Skin: Present warm; Absent rash *Routine Neurological Exam Neurological: Present alert and oriented X3 Results Data Completed and Pending Labs on day of discharge: Labs from last 24 hours 10/07/24 06:12 WBC 15.4 H D RBC 4.26 Hgb 13.3 Hct 40.0 MCV 93.9 MCH 31.2 MCHC 33.3 RDW 14.8 Plt Count 222 MPV 12.4 H Neut % (Auto) 69.8 Lymph % (Auto) 22.9 Morris % (Auto) 5.6 Eos % (Auto) 0.3 Baso % (Auto) 0.2 Neut # (Auto) 10.8 H Lymph # (Auto) 3.5 Morris # (Auto) 0.9 Eos # (Auto) 0.1 Baso # (Auto) 0.0 Sodium 138 Potassium 4.1 D Chloride 99 Carbon Dioxide 32 H Anion Gap 11.1 BUN 25 H D Creatinine 1.30 H Estimated Creat Clear 35 Estimated GFR 42 L Est GFR ( Amer) 50 L Glucose 104 H Calcium 9.5 Preliminary micro results at discharge 10/04/24 13:55 Blood Culture - Preliminary Blood NO GROWTH AFTER 48 HOURS 10/04/24 13:55 Blood Culture - Preliminary Blood NO GROWTH AFTER 48 HOURS DS: Diagnosis Discharge Diagnosis (1) Acute exacerbation of chronic obstructive pulmonary disease: Status: Acute Code(s): J44.1 - Chronic obstructive pulmonary disease with (acute) exacerbation (2) Fibrosis of lung: Status: Acute Code(s): J84.10 - Pulmonary fibrosis, unspecified (3) Smoking greater than 30 pack years: Status: Acute Code(s): F17.210 - Nicotine dependence, cigarettes, uncomplicated (4) Pulmonary emphysema: Status: Acute Code(s): J43.9 - Emphysema, unspecified Qualifiers: Emphysema type: unilateral Qualified Code(s): J43.0 - Unilateral pulmonary emphysema [MacLeod's syndrome] (5) Rheumatoid arthritis: Status: Acute Code(s): M06.9 - Rheumatoid arthritis, unspecified Qualifiers: Rheumatoid arthritis location: unspecified site Rheumatoid factor presence: unspecified presence Qualified Code(s): M06.9 - Rheumatoid arthritis, unspecified (6) SIRS (systemic inflammatory response syndrome): Status: Acute Code(s): R65.10 - Systemic inflammatory response syndrome (SIRS) of non-infectious origin without acute organ dysfunction Problem details: Present on admission Meds Home Medications and Allergies Home Medications ?Medication ?Instructions ?Recorded ?Confirmed ?Type adalimumab 40 mg/0.8 mL 40 mg SQ DIRECTED 10/04/24 10/04/24 History subcutaneous pen kit (Humira Pen) albuterol sulfate 90 mcg/actuation 2 puff inhalation Q4HP PRN Wheezing 10/04/24 10/04/24 History aerosol inhaler alendronate 70 mg tablet 70 mg PO WEEKLY 10/04/24 10/04/24 History atorvastatin 40 mg tablet 40 mg PO DAILY 10/04/24 10/04/24 History cariprazine 1.5 mg capsule 1.5 mg PO DAILY 10/04/24 10/04/24 History (Vraylar) clopidogrel 75 mg tablet 75 mg PO DAILY 10/04/24 10/04/24 History cyanocobalamin (vitamin B-12) 1,000 mcg IM MONTHLY 10/04/24 10/04/24 History 1,000 mcg/mL injection solution cyclobenzaprine 10 mg tablet 10 mg PO Q8HP PRN Muscle Spasm 10/04/24 10/04/24 History escitalopram oxalate 20 mg tablet 20 mg PO DAILY 10/04/24 10/04/24 History famotidine 40 mg tablet 40 mg PO DAILY 10/04/24 10/04/24 History ferrous sulfate 325 mg (65 mg 325 mg PO DAILY 10/04/24 10/04/24 History iron) tablet (FeroSul) fluticasone fur. 200 mcg-umeclid 1 inh inhalation DAILY 30 days #60 10/04/24 Rx 62.5 mcg-vilant 25 mcg ea inhalat.powder (Trelegy Ellipta) gabapentin 800 mg tablet 800 mg PO BID 10/04/24 10/04/24 History lidocaine 5 % topical patch 1 patch transdermal DAILY 10/04/24 10/04/24 History mirtazapine 15 mg tablet 15 mg PO HS 10/04/24 10/04/24 History omeprazole 40 mg capsule,delayed 40 mg PO DAILY 10/04/24 10/04/24 History release potassium chloride 20 mEq 20 meq PO DAILY 10/04/24 10/04/24 History tablet,extended release(part/cryst) rimegepant 75 mg disintegrating 75 mg PO DAILYP PRN Migraine 10/04/24 10/04/24 History tablet (Nurtec ODT) Headache rivaroxaban 2.5 mg tablet (Xarelto) 2.5 mg PO BID 10/04/24 10/04/24 History terbinafine HCl 250 mg tablet 250 mg PO DAILY 10/04/24 10/04/24 History doxycycline monohydrate 100 mg 100 mg PO BID 2 days #4 caps 10/07/24 Rx capsule furosemide 40 mg tablet 40 mg PO DAILY 30 days #30 tabs 10/07/24 Rx nicotine (polacrilex) 4 mg gum 4 mg buccal Q2H #40 ea 10/07/24 Rx prednisone 20 mg tablet 40 mg (2 x 20 mg) PO DAILY 2 days 10/07/24 Rx #4 tabs New Prescriptions to Start Prescriptions: doxycycline monohydrate Fuentes Zapata fshjrfjkodc-hdvelhziz-vaoiatac [Trelegy Ellipta] Braulio Soto furosemide Fuentes Zapata nicotine (polacrilex) Fuentes Zapata prednisone Fuentes Zapata Allergies Allergy/AdvReac Type Severity Reaction Status Date / Time No Known Allergies Allergy Verified 05/07/24 13:05 Discharge Plan Disposition Patient Disposition: Home, Self-Care Condition: Fair Discharge Order Discharge Orders: Discharge Order (Routine); Ordered 10/07/24 Ordered By: Fuentes Zapata Follow up Plan Follow up with: Valery Patel APRN [Nurse Practitioner, Cardiology] - 10/21/24 10:30 am Referral Note: Heart failure Danyelle Hawley MD [Physician, Pulmonology] - 11/21/24 11:00 am Prescriptions/Medication Reconciliation: Wilfredo Swain 200-62.5-25 mcg Blister With Device 1 inh inhalation DAILY 30 Days Qty: 60 0RF prednisone 20 mg Tablet 40 mg PO DAILY 2 Days Qty: 4 0RF doxycycline monohydrate 100 mg capsule 100 mg PO BID 2 Days Qty: 4 0RF furosemide 40 mg Tablet 40 mg PO DAILY 30 Days Qty: 30 0RF nicotine (polacrilex) 4 mg gum 4 mg buccal Q2H Qty: 40 0RF Continued cyclobenzaprine 10 mg tablet 10 mg PO Q8HP PRN (Reason: Muscle Spasm) Patient Comments: TAKE 1 TABLET BY MOUTH EVERY 8 HOURS NEEDED FOR MUSCLE SPASMS atorvastatin 40 mg tablet 40 mg PO DAILY famotidine 40 mg tablet 40 mg PO DAILY alendronate 70 mg tablet 70 mg PO WEEKLY clopidogrel 75 mg tablet 75 mg PO DAILY omeprazole 40 mg capsule,delayed release(DR/EC) 40 mg PO DAILY terbinafine HCl 250 mg tablet 250 mg PO DAILY potassium chloride 20 mEq tablet,ER particles/crystals 20 meq PO DAILY Patient Comments: TAKE 1 TABLET BY MOUTH ONCE A DAY gabapentin 800 mg tablet 800 mg PO BID cyanocobalamin (vitamin B-12) 1,000 mcg/mL solution 1,000 mcg IM MONTHLY Patient Comments: INJECT 1 ML INTRAMUSCULARLY ONCE MONTHLY ferrous sulfate [FeroSul] 325 mg (65 mg iron) tablet 325 mg PO DAILY Patient Comments: TAKE ONE TABLET BY MOUTH ONCE A DAY lidocaine 5 % adhesive patch,medicated 1 patch transdermal DAILY mirtazapine 15 mg tablet 15 mg PO HS albuterol sulfate 90 mcg/actuation HFA aerosol inhaler 2 puff INHALATION Q4HP PRN (Reason: Wheezing) Patient Comments: INHALE 2 PUFFS BY MOUTH EVERY 4 HOURS NEEDED FOR WHEEZING escitalopram oxalate 20 mg tablet 20 mg PO DAILY Humira Pen 40 mg/0.8 mL pen injector kit 40 mg SQ DIRECTED Vraylar 1.5 mg capsule 1.5 mg PO DAILY rivaroxaban [Xarelto] 2.5 mg tablet 2.5 mg PO BID Nurtec ODT 75 mg tablet,disintegrating 75 mg PO DAILYP PRN (Reason: Migraine Headache) Discontinued prednisone 20 mg tablet 20 mg PO DIRECTED furosemide 20 mg tablet 20 mg PO DAILY Breztri Aerosphere 160-9-4.8 mcg/actuation HFA aerosol inhaler 2 puff INHALATION BID Problem Reconciliation Problems Reviewed?: Yes Patient Discharge Instructions Patient Instructions: Stop Light COPD, Stop Light Heart Failure Print Language: Haitian Providers Primary Care Provider: Provider,Referral Admit Provider: Braulio Soto Attending Provider: Braulio Soto
--- NOTE | 2024-10-08 10:26 | SW/DCPLANNER ---
Spoke with patient on the phone. Patient stated that she is doing well. Patient stated that she is aware of her upcoming appointments. Patient stated that she was able to get her new medicine picked up. Patient stated that she has no concerns or questions at this time. Ish Perez
== END 2024-10-07 15:32 | disposition home or self-care (01) | DRG 190 ==
LOC: ER 14:14 → 2ND 15:08
PROVIDERS: Internal Medicine; Physician Assistant; Admitting Provider Internal Medicine Adolescent Medicine; Emergency Provider Student in an Organized Health Care Education/Training Program; Visit Provider Internal Medicine Adolescent Medicine
DX: J44.1 Chronic obstructive pulmonary disease with (acute) exacerbation (principal); I50.33 Acute on chronic diastolic (congestive) heart failure; J96.01 Acute respiratory failure with hypoxia; D84.9 Immunodeficiency, unspecified; R65.10 Systemic inflammatory response syndrome (SIRS) of non-infectious origin without acute organ dysfunction; M06.9 Rheumatoid arthritis, unspecified; J84.10 Pulmonary fibrosis, unspecified; F17.210 Nicotine dependence, cigarettes, uncomplicated; K21.9 Gastro-esophageal reflux disease without esophagitis; F32.9 Major depressive disorder, single episode, unspecified; J43.9 Emphysema, unspecified; F41.1 Generalized anxiety disorder; Z79.01 Long term (current) use of anticoagulants; Z79.02 Long term (current) use of antithrombotics/antiplatelets; Z79.899 Other long term (current) drug therapy; Z11.52 Encounter for screening for COVID-19
CPT/HCPCS: 0223U; 36415; 71045; 80048; 80053; 82803; 83690; 83735; 83880; 84484; 85025; 85610; 87040; 87636; 93005; 93306; 94640; 94760; 94761; 99285; J0456; J0696; J1938; J2919; J7050; J7614

== ENCOUNTER 2024-11-07 11:31 | Outpatient (CLI) | payer MEDICARE, SELFPAY ==
--- OUTSIDE RECORDS SUMMARY | 2024-09-11 10:45 | XMS_ITS | Encounter Summary ---
Author Organization [place] [address] Care Team Providers Care Transmission Systems Operator Name Role Phone Patsy Hair MD Primary Care Provider [phone] Crystal Osborne MD Unavailable [phone] Reason for Referral * Consultation (Routine) - Authorization Not Needed Specialty Diagnoses / Procedures Referred By Contac t Referred To Contact Cardiology Diagnoses Atherosclerosis of [place] artery of both lower extremities with intermittent claudication PAD (peripheral artery disease) Coronary artery calcification seen on CT scan Procedures MT OFFICE/OUTPATIENT NEW MODERATE MDM 45 MINUTES Patsy Hair MD [address] [place] [address] Phone: tel: fax: Chidi Enriquez MD [address] [place] [address] Phone: tel: fax: Referral ID Status Reason Start Date Expiration Date Visits Requested Visits Authorized [id number] Authorization Not Needed 09/11/2024 09/11/2025 99 99 Reason for Visit * Reason Comments Diarrhea Emesis Arthritis Medication Refill Encounter Details Date Type Department Care Team (Late st Contact Info) Description 09/11/2024 10:45 AM EDT Office Visit [facility] [address] [place] [phone] Patsy Hair MD 100 [place] [address] Diverticulitis of large intestine without perforation or abscess without bleeding (Primary Dx); Rheumatoid arthritis, involving unspecified site, unspecified whether rheumatoid factor present (HCC); Vitamin B 12 deficiency; Gastroesophageal reflux disease without esophagitis; Immunocompromised; Atherosclerosis of [place] artery of both lower extremities with intermittent [...] Date Smoking Tobacco: Every Day Cigarettes 1 72.7 Started: 02/13/1977 Passive Smoke Exposure: Current Smokeless [...] 2 times daily. 60 Tablet 5 09/11/2024 gabapentin (NEURONTIN) 800 mg Oral TabletIndications: Rheumatoid arthritis, involving unspecified site, unspecified whether rheumatoid factor present (HCC),Vitamin B 12 deficiency,Gastroe sophageal reflux disease without esophagitis,Immuno compromised,Athero sclerosis of [place] artery of both lower extremities with intermittent [...] for 7 days. 14 Tablet 09/11/2024 5 cyclobenzaprine (FLEXERIL) 10 mg Oral Tablet Take 1 Tablet by mouth every 8 hours as needed for Muscle spasms for up to 30 days. 90 Tablet 2 09/11/2024 5 documented in this encounter Progress [...] with a surgeon, preferably Dr. Miner in [facility]. - Will inform the office if a surgeon is found in [facility]. - Incisional hernia likely related to previous colonoscopy. 3. Coronary artery disease. - History of coronary artery disease; has not seen a building surveyor in a long time. - Referral to Dr. Enriquez at the [facility] for cardiac evaluation. - Previously [...] VITAMIN D 25 HYDROXY; Future Atherosclerosis of [place] artery of both lower extremities with intermittent [...] COPD with acute exacerbation (HCC) (Chronic) - enrafrbvaf-frlftcub-zkiqkaruyu (BREZTRI AEROSPHERE) 160-9-4.8 mcg/actuation Inhl HFA Aerosol [...] Delayed Release(E.C.); Take 2 Capsules by mouth daily.Dispense: 200 Capsule; Refill: 1 - escitalopram oxalate [...] by mouth once a week. Dispense: 12 Tablet; Refill: 3 - clopidogreL (PLAVIX) 75 mg Oral [...] days. She considered seeking emergency care in [facility] but decided against it. She is [...] legs. She does not currently see a building surveyor and is interested in finding one in [facility] or [place]. She has a ventral hernia in her abdomen that is causing discomfort. She is interested in having it repaired if possible. She wonders if it could be related to a previous colonoscopy. She has an appointment with her community relations liaison tomorrow. PAST SURGICAL HISTORY: Colonoscopy Review of [...] Gran% 0.3 % Lymph Percent 36.4 % [place] Percent 6.2 % Eos Percent 3.2 % Baso Percent 0.5 % Neut # 4.1 1.6 - 6.1 x10(3)/mcL IMMGRAN# 0.0 0.0 - 0.1 x10(3)/mcL Lymph # 2.8 1.2 - 3.9 x10(3)/mcL [place] # 0.5 0.3 - 0.9 x10(3)/mcL Eos# [...] The provider educated the patient (or legal medical sales representative) on the use of the ambient listening artificial intelligence tool, SmashChart. They were informed that this AI tool [...] of such information, the patient (or legal medical sales representative), and each individual in attendance with the patient, verbally consented to the use of the AI tool. documented in this encounter Plan of Treatment Upcoming Encounters Date Type Department Care Team (Late st Contact Info) Description 12/16/2024 8:30 AM EST Appointment [facility] [address] [place], [place] [address] [place] [address] Tiago Franz MD [address] [place] [address] [address] [facility] 12/16/2024 9:30 AM EST Appointment GRT STRESS TEST [address] [place] [address] Tiago Franz MD [address] [place] [address] [place] [address] 12/16/2024 12:15 PM EST Appointment [facility] VASCULAR LAB [address] [place], [place] [address] [address] Tiago Franz MD [address] [place] [address] [place] [address] 01/20/2025 3:15 PM EST Office Visit [facility] Nephrology Amandeep [address] [place] [address] Crystal Osborne MD [address] [place] [address] [address] [place] [address] 02/26/2025 10:40 AM EST Office Visit [facility] [place] [address] [place] [address] Tiago Franz MD [address] [place] [address] [place] [address] 09/25/2025 10:00 AM EDT Appointment [facility] VASCULAR [address] [place] [address] Amaris Sommer APRN [address] [facility] [address] [place] [address] 09/25/2025 11:00 AM EDT Office Visit [facility] [address] [place] [address] MayAmaris APRN [address] [facility] [address] [place] [address] Scheduled Referrals Name Type Priority Associated Diagnoses Orde r Schedule AMB REFERRAL TO CARDIOLOGY Outpatient Referral Routine Atherosclerosis of [place] artery of both lower extremities with intermittent [...] reflux disease without esophagitis Immunocompromised Atherosclerosis of [place] artery of both lower extremities with intermittent [...] reflux disease without esophagitis Immunocompromised Atherosclerosis of [place] artery of both lower extremities with intermittent [...] reflux disease without esophagitis Immunocompromised Atherosclerosis of [place] artery of both lower extremities with intermittent [...] reflux disease without esophagitis Immunocompromised Atherosclerosis of [place] artery of both lower extremities with intermittent [...] reflux disease without esophagitis Immunocompromised Atherosclerosis of [place] artery of both lower extremities with intermittent [...] reflux disease without esophagitis Immunocompromised Atherosclerosis of [place] artery of both lower extremities with intermittent [...] - 150.0 ng/mL 09/11/2024 5:04 PM EDT [facility] Comment: Preferred: >= 30 ng/mL Insufficient: 21-29 [...] MD CHEMISTRY ORDERABLES Final Res ult [facility] [address] [facility], [address] [place] [id number] * (ABNORMAL) VITAMIN B12/ FOLIC ACID (09/11/2024 11:17 AM EDT) Vitamin B12 >1,600(H) 232 - 1,245 pg/mL 09/11/2024 5:04 PM EDT PREFERRED [employer], [employer] Folate >16.00 >=4.80 ng/mL 09/11/2024 5:04 PM EDT [facility] Blood VENOUS BLOOD / Unknown Venipuncture / Unknown 09/11/2024 11:17 AM EDT 09/11/2024 11:17 AM EDT Narrative [facility] - 09/11/2024 5:04 PM EDT Ingestion of eh doses of biotin (>5 mg/day) taken within 8 hours of drawing blood sample can interfere with this immunoassay test. us Patsy Hair MD CHEMISTRY ORDERABLES Final Res ult Performing Organization Address [facility]/ZIP Co de Phone Number [facility] [address] [facility] , [place] [address] * TSH REFLEX TO FT4 (09/11/2024 11:17 AM EDT) TSH Reflex 1.730 0.270 - 4.200 mcIU/mL 09/11/2024 3:17 PM EDT [facility] Blood VENOUS BLOOD / Unknown Venipuncture / Unknown 09/11/2024 11:17 AM EDT 09/11/2024 11:17 AM EDT Narrative [facility] - 09/11/2024 3:17 PM EDT Ingestion of eh doses of biotin (>5 mg/day) taken within 8 hours of drawing blood sample can interfere with this immunoassay test. us Patsy Hair MD CHEMISTRY ORDERABLES Final Res ult Performing Organization Address [facility] de Phone Number [facility] [address] [facility] , [place] [address] * LIPID SCREEN (09/11/2024 11:17 AM EDT) Cholesterol 189 <200 mg/dL 09/11/2024 3:17 PM EDT [facility] Comment: < 200 Desirable 200 - 239 Borderline High >= 240 High Triglyceride 93 <150 mg/dL 09/11/2024 3:17 PM EDT [facility] Comment: < 150 Normal 150 - 199 Borderline High 200 - 499 High >= 500 Very High HDL 86 >=40 mg/dL 09/11/2024 3:17 PM EDT [facility] Comment: > 60 Optimal 40 - 60 Acceptable < 40 Low LDL Calculated 87 <100 mg/dL 09/11/2024 3:17 PM EDT [facility] Comment: < 100 Optimal 100 - 129 Near or above optimal 130 - 159 Borderline High 160 - 189 High >= 190 Very High The National Institutes of Health (NIH) equation is used for all lipid panels that report calculated LDL (LDL-C). Non-HDL-C Calculated 103 <=129 mg/dL 09/11/2024 3:17 PM EDT [facility] Comment: <130 Desirable 130-159 Above Desirable 160-189 Borderline High 190-219 High >= 220 Very High Fasting Specimen? Yes None 025 3:17 PM EDT [facility] Blood VENOUS BLOOD / Unknown Venipuncture / Unknown 09/11/2024 11:17 AM EDT 09/11/2024 11:17 AM EDT us Patsy Hair MD CHEMISTRY ORDERABLES Final Res ult [facility] [address] [facility] , [place] [address] * (ABNORMAL) COMPREHENSIVE METABOLIC PANEL (09/11/2024 11:17 [...] 09/11/2024 3:17 PM EDT [facility] Comment:Estimated GFR was ca lculated using the CKD-EPIcr (2020) equation refit without race. The equation is recommended by the National Kidney Foundation - [place] [employer] of Nephrology Task Force. Blood VENOUS BLOOD / Unknown Venipuncture / Unknown 09/11/2024 11:17 AM EDT 09/11/2024 11:17 AM EDT us Patsy Hair MD CHEMISTRY ORDERABLES Final Res ult [facility] [address] [facility] , [place] [address] * (ABNORMAL) CBC WITH DIFF (09/11/2024 11:17 AM EDT) WBC 7.6 3.7 - 10.3 x10(3)/mcL 09/11/2024 2:35 PM EDT [facility] RBC 4.99 3.90 - 5.20 x10(6)/mcL 09/11/2024 2:35 PM EDT [facility] Hgb 15.2 11.2 - 15.7 g/dL 09/11/2024 2:35 PM EDT [facility] Hct 46.9(H) 34.0 - 45.0 % 09/11/2024 2:35 PM EDT [facility] MCV 94.0 80.0 - 100.0 fL 09/11/2024 2:35 PM EDT [facility] MCH 30.5 26.0 - 34.0 pg 09/11/2024 2:35 PM EDT [facility] MCHC 32.4 30.7 - 35.5 g/dL 09/11/2024 2:35 PM EDT [facility] RDW 14.4 <=14.9 % 09/11/2024 2:35 PM EDT [facility] Platelet 253 155 - 369 x10(3)/mcL 09/11/2024 2:35 PM EDT [facility] MPV 13.0(H) 8.8 - 12.5 fL 09/11/2024 2:35 PM EDT [facility] Neut Percent 53.4 % 09/11/2024 2:35 PM EDT [facility] Comment:Neutrophils equals s egs plus bands Imm Gran% 0.3 % 09/11/2024 2:35 PM EDT [facility] Comment:Automated count of m etamyelocytes, myelocytes and promyelocytes. Lymph Percent 36.4 % 09/11/2024 2:35 PM EDT [facility] [place] Percent 6.2 % 09/11/2024 2:35 PM EDT [facility] Eos Percent 3.2 % 09/11/2024 2:35 PM EDT [facility] Baso Percent 0.5 % 09/11/2024 2:35 PM EDT [facility] Neut # 4.1 1.6 - 6.1 x10(3)/mcL 09/11/2024 2:35 PM EDT [facility] Comment:Neutrophils equals s egs plus bands IMMGRAN# 0.0 0.0 - 0.1 x10(3)/mcL 09/11/2024 2:35 PM EDT [facility] Comment:Automated count of m etamyelocytes, myelocytes and promyelocytes. An absolute IG <0.1 is reported as 0.0. Lymph # 2.8 1.2 - 3.9 x10(3)/mcL 09/11/2024 2:35 PM EDT [facility] [place] # 0.5 0.3 - 0.9 x10(3)/[facility] 09/11/2024 2:35 PM EDT [facility] Eos# 0.2 0.0 - 0.5 x10(3)/[facility] 09/11/2024 2:35 PM EDT [facility], [facility] Baso # 0.0 0.0 - 0.1 x10(3)/[facility] 09/11/2024 2:35 PM EDT [facility] Blood VENOUS BLOOD / Unknown Venipuncture / Unknown 09/11/2024 11:17 AM EDT 09/11/2024 11:17 AM EDT us Patsy Hair MD HEMATOLOGY ORDERABLES Final Re sult [facility] [employer] [address] [facility] , [place] [address] documented in this encounter Visit Diagnoses Diagnosis Diverticulitis of large intestine without perforation or abscess without bleeding- Primary Diverticulitis of colon (without mention of hemorrhage) Rheumatoid arthritis, involving unspecified site, unspecified whether rheumatoid factor present (HCC) Vitamin B 12 deficiency Other B-complex deficiencies Gastroesophageal reflux disease without esophagitis Esophageal reflux Immunocompromised Unspecified immunity deficiency Atherosclerosis of [place] artery of both lower extremities with intermittent claudication Atherosclerosis of [place] arteries of the extremities with intermittent claudication [...] 60 mg, Intramuscular, ONCE, 1 dose, On 7/30/25 at 1130, For IM Administration: Give undiluted, [...] ONLY NEEDED FOR MIGRAINE Reorder 06/05/2024 09/11/2024 fpqshwxotl-jvfnslhx-ehe moterol (BREZTRI AEROSPHERE) 160-9-4.8 mcg/actuation Inhl HFA [...] whether rheumatoid factor present (HCC),Vitamin B 12 deficiency,Gastroesopha geal reflux disease without esophagitis,Immunocompr omised,Atherosclerosis of [place] artery of both lower extremities with intermittent claudication,PAD (peripheral artery disease),Stage 3b chronic kidney disease (HCC) TAKE 1 TABLET BY MOUTH EVERY EVENING, MAY TAKE ADDITIONAL 1/2 TABLET EVERY MORNING AND EVERY AFTERNOON NEEDED Reorder 09/02/2024 09/11/2024 documented as of this encounter Care Teams Transmission Systems Operator Relationship Specialty Start Date End Date Patsy Hair MD [address] [place] [id number] PCP - General Family Medicine 07/19/13 Crystal Osborne MD [address] [place] [phone] Internal Medicine-Nephrology 12/06/23 documented as of this encounter
--- OUTSIDE RECORDS SUMMARY | 2024-09-20 08:45 | XMS_ITS | Encounter Summary ---
Author [place] [address] Care Team Providers Care Vocational Examiner Name Role Phone Patsy Hair MD Primary Care Provider [phone] Crystal Osborne MD Unavailable [phone] Reason for Visit * Reason Comments Lab Orders Encounter Details Date Type Department Care Team (Latest Contact Info) Description 09/20/2024 8:45 AM EDT Clinical Support [facility] [address] [place] [address] Shani Jimenez MA Decreased potassium [...] of Assessment Author No 04/06/2024 9:40 AM DOMO Winnie Miller RMAyaz documented as of this encounter Mental Status * Because of a physical, mental or emotional condition, does this person have serious difficulty concentrating, remembering or making decisions? Answer Entry Date Author No 04/06/2024 9:40 AM Winnie Pinto VALEAyaz documented in this encounter Plan of Treatment Upcoming Encounters Date Type Department Care Team (Late st Contact Info) Description 12/16/2024 8:30 AM EST Appointment [facility] [address] [place] [address] Tiago Franz MD [address] [place] [address] [place] [address] 12/16/2024 9:30 AM EST Appointment [facility]RT STRESS TEST [address] [place] [address] Tiago Franz MD [address] [place] [address] [place] [address] 12/16/2024 12:15 PM EST Appointment [facility] VASCULAR LAB [address] [place] [address] Tiago Franz MD [address] [place] [address] [place] [address] 01/20/2025 3:15 PM EST Office Visit [facility] Nephrology Amandeep [address] [place] [address] Crystal Osborne MD [address] [facility] [address] [place] [address] 02/26/2025 10:40 AM EST Office Visit [facility] [place] [address] [place] [address] Tiago Franz MD [address] [facility] [place] [address] 09/25/2025 10:00 AM EDT Appointment [facility] VASCULAR [address] [facility] [address] [place] [address] [facility] [address] [place] [address] 09/25/2025 11:00 AM EDT Office Visit [facility] [address] [facility] [address] [place] [address] Amaris Sommer [address] [place] [address] documented as of this encounter Goals Goal [...] 09/20/2024 4:30 PM EDT [facility] Total CO2 22 22 - 29 mmol/L 09/20/2024 4:30 PM EDT [facility] Anion Gap 12 7 - 16 mmol/L 09/20/2024 4:30 PM EDT [facility] Calcium 8.9 8.8 - 10.4 mg/dL 09/20/2024 4:30 PM EDT [facility] Glucose Lvl 98 70 - 99 mg/dL 09/20/2024 4:30 PM EDT [facility] BUN 12 8 - 23 mg/dL 09/20/2024 4:30 PM EDT [facility] Creatinine 1.38(H) 0.51 - 1.30 mg/dL 09/20/2024 4:30 PM EDT [facility] Albumin 3.9 3.2 - 4.6 gm/dL 09/20/2024 4:30 PM EDT [facility] Total Protein 6.6 6.4 - 8.3 gm/dL 09/20/2024 4:30 PM EDT [facility] Bili Total 0.3 0.2 - 1.3 mg/dL 09/20/2024 4:30 PM EDT [facility] ALT 12 <=41 U/L 09/20/2024 4:30 PM EDT [facility] AST 21 <=40 U/L 09/20/2024 4:30 PM EDT [facility] Alk Phos 59 36 - 123 U/L 09/20/2024 4:30 PM EDT [facility] eGFR (CKD-EPIcr 2020) 43(L) >=60 mL/min/1.7 3 m2 09/20/2024 4:30 PM EDT [facility] Comment:Estimated GFR was ca lculated using the CKD-EPIcr (2020) equation refit without race. The equation is recommended by the National Kidney Foundation - [place] [employer] of Nephrology Task Force. Blood VENOUS BLOOD / Unknown Venipuncture / Unknown 09/20/2024 8:42 AM EDT 09/20/2024 8:42 AM EDT us Patsy Hair MD CHEMISTRY ORDERABLES Final Res ult [facility] [address] [facility], [address] [place], [place] [id number] documented in this encounter Visit Diagnoses Diagnosis Decreased potassium in the blood Hypopotassemia documented in this encounter Care Teams Vocational Examiner Relationship Specialty Start Date End Date Patsy Hair MD [address] [place] [id number] PCP - General Family Medicine 07/19/13 Crystal Osborne MD [address] [facility] [address] [place] [address] Internal Medicine-Nephrology 12/06/23 documented as of this encounter
--- OUTSIDE RECORDS SUMMARY | 2024-10-11 10:15 | XMS_ITS | Encounter Summary ---
Author [place] [address] Care Team Providers Care Sign Wirer Name Role Phone Patsy Hair MD Primary Care Provider [phone] Crystal Osborne MD Unavailable [phone] Reason for Referral * Consultation (Routine) - Authorization Not Needed Specialty Diagnoses / Procedures Referred By Contgonsalo t Referred To Contact Ophthalmology Diagnoses Visual disturbance Procedures ME OFFICE/OUTPATIENT NEW MODERATE MDM 45 MINUTES Patsy Hair MD [address] [place] [address] Phone: tel: fax: Herman Reid MD [address] [facility] [address] [place] [address] Phone: tel: fax: Referral ID Status Reason Start Date Expiration Date Visits Requested Visits Authorized [id number] Authorization Not Needed 10/11/2024 10/11/2025 99 99 Question Answer Provider Options First Available Reason for Visit * Reason Comments Hospital Follow Up Encounter Details Date Type Department Care Team (Late st Contact Info) Description 10/11/2024 10:15 AM EDT Office Visit [facility] [address] [place] [address] Patsy Hair MD [address] [place], [place] [phone] Community acquired pneumonia of left lower lobe of lung (Primary Dx); Visual disturbance; Chronic obstructive pulmonary disease, unspecified COPD type (HCC); CYP2C9 intermediate metabolizer (HCC); Fibrosis of lung (HCC); ILD (interstitial lung disease) ([facility]) Social History Tobacco Use Types Packs/Day Years Used Date Smoking Tobacco: Every Day Cigarettes 1 72.7 Started: 02/13/1977 Passive Smoke Exposure: Current Smokeless Tobacco: Never Tobacco Cessation:Ready to Q uit: Yes; Counseling Given: Not Answered Comments:Quit in the [...] Sign Reading Time Taken Comments Blood Pressure 98/60 10/11/2024 10:35 AM EDT Pulse 88 10/11/2024 10:35 AM EDT Temperature 36.7 C (98.1 F) 10/11/2024 10:35 AM EDT Respiratory Rate - - Oxygen Saturation 97% 10/11/2024 10:35 AM EDT Inhaled Oxygen Concentration - - Weight 48.3 kg (106 lb 6.4 oz) 10/11/2024 10:35 AM EDT Height 142.2 cm (4' 8 ) 10/11/2024 10:35 AM EDT Body Mass Index 23.85 10/11/2024 10:35 AM EDT documented in this encounter Functional [...] AM DOMO Miller Winniekavon Hurley ALESIA * Does this person have difficulty dressing or bathing? Answer Date of Assessment Author No 04/06/2024 9:40 AM Winnie Pinto Mei ALESIA * Because of a physical, mental [...] Pinto Mei ALESIA documented in this encounter Ordered Prescriptions Prescription Sig Dispense Quantity Refills Last Filled Start Date End Date cefdinir (OMNICEF) 300 mg Oral CapsuleIndications :Community acquired pneumonia of left lower lobe of lung Take 1 Capsule by mouth 2 times daily for 10 days. 20 Capsule 10/11/2024 documented in this encounter Progress Notes * Patsy Hair MD - 10/11/2024 10:15 AM EDT Assessment & Plan 1. Pneumonia: - She was recently hospitalized for pneumonia in the left lung and is currently on antibiotics and steroids. - She reports feeling better but still has some respiratory symptoms. - A Solu-Medrol injection will be administered today to provide fast-acting relief. - She will continue her antibiotic regimen for another day as prescribed during her hospital stay. Additional antibiotics will be provided to ensure the infection is fully treated. 2. Blurry vision: - She reports experiencing blurry vision and double vision for the past few months, which has not improved with her current glasses. - The potential impact of steroids on her vision was discussed, but the duration of her symptoms suggests another underlying cause. - A referral to an editorial assistant will be made for further evaluation and management. Dx/Orders: Diagnoses and all orders for this visit: Community acquired pneumonia of left lower lobe of lung - cefdinir (OMNICEF) 300 mg Oral Capsule; Take 1 Capsule by mouth 2 times daily for 10 days. 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 Subjective Vanessa A Carlos is a 64 y.o. female Chief Complaint Patient presents with Hospital Follow Up Hospital Follow-Up: Hospital/ER Follow-Up: Ms. Gonzalez is a 64 y.o. female here for hospital follow up. She was admitted 10/04 and discharged 10/08 with a diagnosis of Pneumonia and COPD. She was at [facility] discharge summary, most recent labs and imaging, admission notes reviewed: No She is compliant with discharge medications / treatment. She is not having medication side effects. Coding Attestation I certify the following are true: 1. Communication with the patient was made within 2 business days of discharge. 2. Medical decision making of medium complexity. 3. Face to face visit within 7 days. 4. Patient has been hospitalized within the last 30 days. Code Complexity Face to face [id number] High complexity within 7 days 35484 High complexity 8-14 days 68347 Medium complexity Within 14 days History of Present Illness The patient is a 64-year-old female who presents for evaluation of pneumonia and blurry vision. She was recently diagnosed with pneumonia, which exacerbated her COPD. This led to a hospitalization at [facility], where she received antibiotics and steroids. She reports feeling better today and is scheduled to complete her antibiotic course tomorrow. She has been experiencing blurry vision and double vision for the past few months. These symptoms persist even when she wears her glasses. Despite these visual disturbances, she continues to drive cautiously. Review of Systems Constitutional: Negative for fatigue and fever. HENT: Negative. Respiratory: Positive for cough. Cardiovascular: Negative. Gastrointestinal: Negative. Genitourinary: Negative. Musculoskeletal: Positive for arthralgias and back pain. Skin: Negative. Psychiatric/Behavioral: Negative for self-injury, sleep disturbance and suicidal ideas. The patientis nervous/anxious. Objective Blood pressure 98/60, pulse 88, temperature 98.1 ??F (36.7 ??C), temperature source Forehead, height 4' 8 (1.422 m), weight 106 lb 6.4 oz (48.3 kg), SpO2 97%, not currently . Body mass index is 23.85 kg/m??. Physical Exam Respiratory: Coarse breath sounds noted in the left lung. Physical Exam Vitals and nursing note reviewed. HENT: Head: Normocephalic. Cardiovascular: Rate and Rhythm: Normal rate. Pulmonary: Effort: Pulmonary effort is normal. Breath sounds: Wheezing present. Abdominal: Palpations: Abdomen is soft. Musculoskeletal: General: Tenderness present. Neurological: Mental Status: She is alert. Results The provider educated the patient (or legal welding equipment sales representative) on the use of the ambient listening artificial intelligence tool, My Pick Box. They were informed that this AI tool [...] of such information, the patient (or legal welding equipment sales representative), and each individual in attendance with the patient, verbally consented to the use of the AI tool. documented in this encounter Plan of Treatment Upcoming Encounters Date Type Department Care Team (Late st Contact Info) Description 12/16/2024 8:30 AM EST Appointment [facility] [address] [place], [place] [phone] Tiago Franz MD [address] [place] [address] [place] [address] 12/16/2024 9:30 AM EST Appointment [facility] [address] [place] [address] Tiago Franz MD [address] [place] [address] [place] [address] 12/16/2024 12:15 PM EST Appointment [facility] [address] [place] [address] Tiago Franz MD [address] [place] [address] [place] [address] 01/20/2025 3:15 PM EST Office Visit [facility] Nephrology Amandeep [address] [place] [address] Crystal Osborne MD [address] [place] [address] [place] [phone] 02/26/2025 10:40 AM EST Office Visit [facility] [address] [phone] Tiago Franz MD [address] [place] [address] [address] [place] [id number] 09/25/2025 10:00 AM EDT Appointment [facility] [address] [place] [address] [place] [phone] Amaris Sommer APRN [address] [place] [address] DR CHAN [address] [place] [address] 09/25/2025 11:00 AM EDT Office Visit [facility] [address] [place] [address] [place] [phone] Amaris Sommer APRN [address] [place] [address] DR CHAN [address] [place] [id number] Scheduled Referrals Name Type Priority Associated Diagnoses Order Schedule AMB REFERRAL TO OPHTHALMOLOGY Outpatient Referral Routine Visual disturbance Ordered: 10/11/2024 documented as of this encounter Goals Goal Patient Goal Type Associated Problems Recent Progress Patient-Stated? 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 Community acquired pneumonia of left lower lobe of lungIndications:Communit y acquired pneumonia of left lower lobe of lung Given 10/11/2024 11:19 AM EDT 125 mg Left upper gluteus documented in this encounter Historical Medications * This list may reflect changes made after this encounter. fUROsemide (LASIX) 40 mg Oral Tablet Take 40 mg by mouth daily. 10/07/2024 TRELEGY ELLIPTA 200-62.5-25 mcg Inhl Disk with Device Inhale 1 Puff into the lungs daily. 10/05/2024 doxycycline monohydrate (MONODOX) 100 mg Oral Capsule Take 100 mg by mouth 2 times daily. 10/07/2024 added in this encounter Care Teams Sign Wirer Relationship Specialty Start Date End Date Patsy Hair MD [address] [place] [address] PCP - General Family Medicine 07/19/13 Crystal Osborne MD [address] [facility] [address] [place] [address] Internal Medicine-Nephrology 12/06/23 documented as of this encounter
--- OUTSIDE RECORDS SUMMARY | 2024-10-30 09:40 | XMS_ITS | Encounter Summary ---
Author Organization [place] [address] Care Team Providers Care Ornamental Metal Fabricator Apprentice Name Role Phone Patsy Hair MD Primary Care Provider [phone] Crystal Osborne MD Unavailable [phone] Reason for Referral * Stress (Routine) - Pending Review Specialty Diagnoses / Procedures Referred By Contac t Referred To Contact Radiology Diagnoses Routine adult health maintenance SOB (shortness of breath) Smoker Chronic bronchitis, unspecified chronic bronchitis type (HCC) Abnormal CT scan of heart ASCVD (arteriosclerotic cardiovascular disease) Primary hypertension Procedures ST STRESS TEST Tiago Valle MD [address] [place] [address] Phone: tel: fax: Referral ID Status Reason Start Date Expiration Date V isits Requested Visits Authorized [id number] Pending Review 10/30/2024 10/30/2026 1 1 * Nuclear Medicine (Routine) - Pending Review Specialty Diagnoses / Procedures Referred By Contac t Referred To Contact Radiology Diagnoses Routine adult health maintenance SOB (shortness of breath) Smoker Chronic bronchitis, unspecified chronic bronchitis type (HCC) Abnormal CT scan of heart ASCVD (arteriosclerotic cardiovascular disease) Primary hypertension Procedures NM MYOCARDIAL PERFUSION SPECT STRESS AND REST Tiago Franz MD [address] [place] [address] Phone: tel: fax: Referral ID Status Reason Start Date Expiration Date V isits Requested Visits Authorized [id number] Pending Review 10/30/2024 10/30/2025 5 5 * Echo (Routine) - Pending Review Specialty Diagnoses / Procedures Referred By Boubacar brown Referred To Contact Radiology Diagnoses Routine adult health maintenance SOB (shortness of breath) Smoker Chronic bronchitis, unspecified chronic bronchitis type (HCC) Abnormal CT scan of heart ASCVD (arteriosclerotic cardiovascular disease) Primary hypertension Procedures EC ECHOCARDIOGRAM COMPLETE W DOPPLER AND COLOR FLOW MAPPING Tiago Franz MD [address] [place] [address] Phone: tel: fax: Referral ID Status Reason Start Date Expiration Date V isits Requested Visits Authorized [id number] Pending Review 10/30/2024 10/30/2026 1 1 Reason for Visit * Reason Comments New Patient DATA ARCHITECT MANAGER, Rfl by Dr. Hair for atherosclerosis of [place]qu[place]mi[place] artery of both lower extremities. * Consultation (Routine) - Authorization Not Needed Specialty Diagnoses / Procedures Referred By Boubacar brown Referred To Contact Cardiology Diagnoses Atherosclerosis of [place] artery of both lower extremities with intermittent claudication PAD (peripheral artery disease) Coronary artery calcification seen on CT scan Procedures [place] OFFICE/OUTPATIENT NEW MODERATE MDM 45 MINUTES Patsy Hair MD [address] [place] [address] Phone: tel: fax: Chidi Enriquez MD [address] [place] [address] Phone: tel: fax: Referral ID Status Reason Start Date Expiration Date Visits Requested Visits Authorized [id number] Authorization Not Needed 09/11/2024 09/11/2025 99 99 Encounter Details Date Type Department Care Team (Latest Contact Info) Description 10/30/2024 9:40 AM EDT Office Visit [facility] [address] [address] Tiago Franz MD [address] [facility] [place] [address] Routine adult health maintenance (Primary Dx); SOB [...] documented in this encounter Progress Notes * Tiago Franz MD - 10/30/2024 9:40 AM EDT [...] mouth daily., Disp: 90 Tablet, Rfl: 3 Pyuobnzdwkwzhen-Nlneoycfu-VB 2-30-10 mg/5 mL Oral Syrup, Take 10 mL by mouth every 4 hours as needed., Disp: 240 mL, Rfl: 1 tnxnthooes-xxffhfmx-opvyrwdjma (BREZTRI AEROSPHERE) 160-9-4.8 mcg/actuation Inhl HFA Aerosol [...] mL into the muscle every 30 days. [place]/syringe also please, Disp: 1 mL, Rfl: 11 [...] Transportation Needs: High Risk (09/20/2024) Received from [facility] SDOH Screening 4. has lack of transportation kept you from attending medical appointments, meetings, work, or fromgetting things needed for daily living? select all that apply.: Yes, it has kept me from medical appointments Physical Activity: Not on file Stress: Not on file Social Connections: Not on file Intimate Partner Violence: Low Risk (11/01/2020) Received from [facility] Intimate Partner Violence Insults You: [...] ; Surgeon: Mitesh Hammond MD; Location: [facility]; Service: Ophthalmology CATARACT REMOVAL 10/06/2011 RIGHT EYE CATARACT EXTRACTION WITH PHACOEMULSIFICATION AND INTRAOCULAR LENS ; Surgeon: Mitesh Hammond MD; Location: [facility]; Service: Ophthalmology CERVIX SURGERY dysplasia COLON SURGERY COLONOSCOPY COLOSTOMY ECTOPIC SURGERY abdominal surgery ENDOMETRIAL ABLATION EYE SURGERY Both eyes cataracts IR ABDOMINAL AORTOGRAM SERIALOGRAM 02/16/2022 IR ABDOMINAL AORTOGRAM SERIALOGRAM 02/16/2022 Hill Santamaria MD [facility] IR IR ANGIOGRAM FEMORAL ARTERIO [place] 02/16/2022 IR ANGIOGRAM FEMORAL ARTERIO [place] 02/16/2022 Hill Santmaaria MD [facility] IR IR ULTRASOUND GUIDED VASCULAR [...] of left knee 12/16/2023 Fibrosis of lung ([facility]) 12/16/2023 ILD (interstitial lung disease) ([facility]) 12/16/2023 Nausea & vomiting 12/16/2023 Urinary tract infection 12/16/2023 Abnormal x-ray of femur 10/11/2023 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 Chronic right shoulder pain 09/22/2023 Rotator cuff arthropathy of right shoulder 09/22/2023 Traumatic tear of right rotator cuff 09/22/2023 Immunosuppressed status 08/10/2023 Osteopenia 08/10/2023 Scoliosis 08/10/2023 Ventral incisional hernia without obstruction or gangrene 08/10/2023 COPD (chronic obstructive pulmonary disease) (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 rheumatology Vitamin B 12 deficiency 09/05/2015 Gastroesophageal [...] Please call with any concerns or questions Tiago Franz MD FAC documented in this encounter Plan of Treatment Upcoming Encounters Date Type Department Care Team (Late st Contact Info) Description 12/16/2024 8:30 AM EST Appointment [facility] N[facility] MED [address] [place] [address] Tiago Franz MD [address] [place] [address] [place] [address] 12/16/2024 9:30 AM EST Appointment GRT STRESS TEST [address] [place] [address] Tiago Franz MD [address] [place] [address] [place] [address] 12/16/2024 12:15 PM EST Appointment [facility] [address] [place] [address] Tiago Franz MD [address] [place] [address] [place] [address] 01/20/2025 3:15 PM EST Office Visit [facility] Nephrology [address] [place] [address] Crystal Osborne MD [address] [facility] [address] [place] [address] 02/26/2025 10:40 AM EST Office Visit [facility] [place] [address] [place] [address] Tiago Franz MD [address] [facility] [place], [place] [id number] 09/25/2025 10:00 AM EDT Appointment [facility] VASCULAR [address] [facility] [address] [place] [address] [address] [place] [address] 09/25/2025 11:00 AM EDT Office Visit [facility] V[facility] Surg [facility] [address] [facility] [address] [place] [address] Amaris Sommer [address] [place], [place] [id number] Scheduled Orders Name Type Priority Associated Diagnoses Orde r Schedule EC ECHOCARDIOGRAM COMPLETE W DOPPLER AND COLOR FLOW MAPPING Imaging Cardiology Routine Routine adult health maintenance SOB (shortness of breath) Smoker Chronic bronchitis, unspecified chronic bronchitis type (HCC) Abnormal CT scan of heart ASCVD (arteriosclerotic cardiovascular disease) Primary hypertension 1 Occurrences starting 10/30/2024 until 10/30/2026 NM MYOCARDIAL PERFUSION SPECT STRESS AND REST Imaging Cardiology Routine Routine adult health maintenance SOB (shortness of breath) Smoker Chronic bronchitis, unspecified chronic bronchitis type (HCC) Abnormal CT scan of heart ASCVD (arteriosclerotic cardiovascular disease) Primary hypertension 1 Occurrences starting 10/30/2024 until 10/30/2025 ST STRESS TEST [facility] Imaging Cardiology Routine Routine adult health maintenance SOB (shortness of breath) Smoker Chronic bronchitis, unspecified chronic bronchitis type (HCC) Abnormal CT scan of heart ASCVD (arteriosclerotic cardiovascular disease) Primary hypertension 1 Occurrences starting 10/30/2024 until 10/30/2025 documented as of this encounter Goals Goal [...] maintenance documented in this encounter Results * POCT EKG (10/30/2024 9:44 AM EDT) 10/30/2024 9:44 AM EDT Impressions [facility] OFFICE - 10/30/2024 9:44 AM EDT NSR HR 84 Tiago Frnaz MD POINT OF CARE CARDIOLOGY F inal [...] hypertension documented in this encounter Care Teams Ornamental Metal Fabricator Apprentice Relationship Specialty Start Date End Date Patsy Hair MD [address] [phone] PCP - General Family Medicine 07/19/13 Crystal Osborne MD [address] [facility] [address] [place] [id number] Internal Medicine-Nephrology 12/06/23 documented as of this encounter
--- OUTSIDE RECORDS SUMMARY | 2024-10-31 13:50 | XMS_ITS | Encounter Summary ---
Author Organization Healthcare Address [address] [place] [address] Care Team Providers Care Merchandise Adjustment Clerk Name Role Phone Patsy Hair MD Primary Care Provider [phone] Reason for Visit * Reason Comments Follow-up Encounter Details Date Type Department Care Team (Late st Contact Info) Description 10/31/2024 1:50 PM EDT Office Visit [facility] [address], [address] [place] [address] Marta Willis L, UI ENGINEER [address] [place] [address] Seropositive rheumatoid arthritis of multiple [...] (10/31/24): Pt reports she was hospitalized at [facility] for COPD exacerbation and PNA. Pt follows [...] Acute colitis 12/16/2023 JAMISON (acute kidney injury) ([facility]) 10/22/2023 Anemia Anemia, unspecified 08/28/2023 Anxiety Atherosclerosis of deering artery of both lower extremities with bilateral ulceration 01/11/2022 Atherosclerosis of deering artery of both lower extremities with intermittent [...] disorder 01/11/2022 COPD (chronic obstructive pulmonary disease) ([facility]) Diverticulitis 12/11/2010 Diverticulosis of intestine, part unspecified, without perforation or abscess without bleeding 10/22/2023 Effusion, right shoulder 04/24/2023 Elevated white blood cell count, unspecified 10/21/2023 Fatigue 11/13/2022 Had bronchitis and a cough also pneumonia for almost 6 weeks. Starts to go away and comes back. Missed 6 humira injections and have taken 2 since. 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 Hypokalemia 08/28/2023 IBS (irritable bowel syndrome) 12/11/2010 ILD (interstitial lung disease) ([facility]) 12/16/2023 Immunodeficiency, unspecified ([facility]) 12/22/2022 Immunosuppressed status ([facility]) 08/10/2023 Iron deficiency anemia 12/18/2023 Localized edema 10/11/2023 Low back pain Migraine without aura, not intractable, without status migrainosus 10/31/2023 Nausea & vomiting 10/19/2023 Osteoarthritis Osteoarthritis of left hip 07/18/2018 Osteopenia 08/10/2023 Other displaced fracture of upper end of unspecified humerus, initial encounter for closed xpwalycq25/11/2024 Other fall from one level to another, [...] History of anxiety Pneumonia 06/24/2023 Rheumatoid arthritis ([facility]) S/P total hip arthroplasty 09/26/2018 Scoliosis 08/10/2023 [...] arm, initial encounter 08/09/2023 Unspecified protein-calorie malnutrition ([facility]) 09/22/2023 Urinary incontinence 02/11/2011 Urinary tract infection 12/16/2023 Varicose veins of bilateral lower extremities with other complications 01/11/2022 Ventral incisional hernia without obstruction or gangrene 06/23/2023 Vitamin B 12 deficiency 09/05/2015 Wrist pain 01/01/2020 Past Surgical History: Procedure Laterality Date CERVIX SURGERY N/A Cervical surgery from [facility] COLONOSCOPY N/A Colonoscopy from [facility] HIP ARTHROPLASTY JOINT REPLACEMENT TOTAL HIP ARTHROPLASTY N/A Hip replacement from [facility] VASCULAR SURGERY 2022 Social History Socioeconomic History [...] Partner Violence: Low Risk (11/01/2020) Received from [facility] Intimate Partner Violence Insults You: Not on [...] Grandmother Izzy Khan Diabetes Paternal Grandmother Izzy hKan Kidney disease Paternal Grandmother Izzy Khan No [...] [facility]umat[facility]. Rapid 3 score: 2.5/30 CDAI: 0 Assessment/Plan Diagnosis Plan 1. Seropositive rheumatoid arthritis of multiple sites (CMS/HCC) methotrexate 2.5 MG tablet 1. Seropositive Rheumatoid Arthritis (RF 47; CCP 86 7; MATT (1:160; speckled): - Continue MTX 10 mg/week - Continue folic acid 1 mg/day - Continue HCQ 200 mg/day. - Continue weekly Humira 2. High risk medication use 3. senior care use of immunosuppressant Labs from 09/06 WNL 3. Osteoarthritis multiple sites -most of her pain appears to be mechanical in nature -per pt she has been referred to pain clinic -new low back pain with sciatica, imaging shows degenerative changes 4. Right shoulder injury -continues to follow with ortho, pt reports she is trying to get PT scheduled 5. CKD Pt follows with [facility] nephrology. Reviewed note from 05/07. RTC in [...] Description 03/20/2025 12:50 PM EST Office Visit [facility] Medicine Specialties [address] [place] [address] Marta Willis APRN [address] [place] [address] documented as of this encounter Visit Diagnoses Diagnosis Seropositive rheumatoid arthritis of multiple sites ([facility]) documented in this encounter Additional Health Concerns Assessment Noted Time A fall risk assessment has been complete d for the patient 10/31/2024 1:52 PM EDT A Body Mass Index follow-up plan has been documented for the patient 10/31/2024 2:40 PM EDT documented as of this encounter Care Teams Merchandise Adjustment Clerk Relationship Specialty Start Date End Date Patsy Hair MD [address] [place] [address] PCP - General 06/26/20 documented as of this encounter
--- OUTSIDE RECORDS SUMMARY | 2024-11-07 11:34 | XMS_ITS | Clinical Summary ---
Author Organization [facility] Address [address] [place] [address] Care Team Providers Care Transition Coach Name Role Phone Patsy Hair MD Primary Care Provider Source Comments This information has been disclosed [...] therelease of HIV test results or diagnoses. [id number] Allergies No known active allergies Medications [...] Plan of Treatment Not on file Insurance [facility] Address: [facility] [id number] [place] [address] Care Teams Transition Coach Relationship Specialty Start Date End Date Patsy Hair MD PCP - General Family Medicine 12/10/18
--- OUTSIDE RECORDS SUMMARY | 2024-11-07 11:34 | XMS_ITS | Encounter Summary ---
Author Organization [facility] Address [address] [place] [address] Care Team Providers Care Bilingual Teacher Assistant Name Role Phone Patsy Hair MD Primary Care Provider [phone] Encounter Details Date Type Department Care Team (Latest Contact Info) Description 10/31/2024 Travel Social History Tobacco Use Types Packs/Day [...] AM EDT documented as of this encounter Functional Status * Over the past 2 weeks, how often have you been bothered by any of the following problems? Question Answer Date of Assessment Author Little interest or pleasure in doing things Not at all 10/31/2024 1:51 PM EDT Rakel Willingham Feeling down, depressed, or hopeless Not at all 10/31/2024 1:51 PM EDT Tarsha, Rakel A Patient Health Questionnaire -2 Score 0 10/31/2024 1:51 PM EDT Rakel Willingahm documented as of this encounter Plan of Treatment Upcoming Encounters Date Type Department Care Team (Late st Contact Info) Description 03/20/2025 12:50 PM EST Office Visit [place] [facility] [address] [place] [address] Marta Willis L, REHAB CONSULTANT [address] [place] [address] documented as of this encounter Visit Diagnoses Not on filedocumented in this encounter Additional Health Concerns Assessment Noted Time A fall risk assessment has been complete d for the patient 10/31/2024 1:52 PM EDT A Body Mass Index follow-up plan has been documented for the patient 10/31/2024 2:40 PM EDT documented as of this encounter Care Teams Bilingual Teacher Assistant Relationship Specialty Start Date End Date Patsy Hair MD [address] [place] [address] PCP - General 06/26/20 documented as of this encounter
--- OUTSIDE RECORDS SUMMARY | 2024-11-07 11:34 | XMS_ITS | Clinical Summary ---
Author Organization [facility] Address [address] [place] [address] Care Team Providers Care Siebel Consultant Name Role Phone Patsy Hair MD Primary Care Provider [phone] Allergies No known active allergies Medications triamcinolone (Kenalog) 0.1 % ointment 021 Active potassium chloride CR (Klor-Con M20) 20 MEQ ER tablet 019 Active ondansetron (Zofran) 4 MG tablet 021 Active DULoxetine (Cymbalta) [address] capsule 020 Active Nurtec 75 MG tablet dispersible 021 Active albuterol 108 (90 Base) MCG/ACT inhaler Inhale 2 puffs every 4 (four) hours if needed. 021 Active escitalopram (Lexapro) 20 MG tablet Take 1 tablet (20 mg) by mouth 1 (one) time each day. 021 Active famotidine (Pepcid) 40 MG tablet 022 Active alendronate (Fosamax) 70 MG tablet 023 Active clopidogrel (Plavix) 75 MG tablet 023 Active gabapentin (Neurontin) 800 MG tablet 023 Active Xarelto 2.5 MG tablet 023 Active Anoro Ellipta 62.5-25 MCG/ACT aerosol powder 023 Active omeprazole (PriLOSEC) [address] capsule 023 Active terbinafine (LamISIL) 250 MG tablet 023 Active predniSONE (Deltasone) 5 MG tablet Take 3 tablets for 5 days, then take 2 tablets for 5 days, then take 1 tablet for 5 days. 30 tablet 023 Active atorvastatin (Lipitor) 40 MG tablet Take 1 tablet (40 mg) by mouth 1 (one) time each day. 023 Active levoFLOXacin (Levaquin) 500 MG tablet 023 Active cyclobenzaprine (Flexeril) 10 MG tablet Take 1 tablet (10 mg) by mouth 3 (three) times a day if needed for muscle spasms for up to 21 days. 32 tablet 024 Active diclofenac (Voltaren) 1 % topical gelIndications:C hronic right shoulder pain APPLY 2 GRAMS TO AFFECTED AREA 2 TIMES A DAY 300 g 024 Active lidocaine (Lidoderm) 5 % patchIndications :Left shoulder pain, unspecified chronicity,Traum atic tear of right rotator cuff, unspecified tear extent, initial encounter Apply 1 patch topically 1 (one) time each day over 12 hours. Remove & discard patch within 12 hours or as directed by MD. 30 patch 1 024 Active Iron, Ferrous Sulfate, 325 (65 Fe) MG tablet daily. 025 Active Vraylar 1.5 MG capsule Active cyanocobalamin (Vitamin B-12) 1000 MCG/ML injection INJECT 1 ML INTRAMUSCULARLY ONCE MONTHLY 025 Active FeroSul 325 (65 Fe) MG tablet Take 1 tablet by mouth daily. 025 Active mirtazapine (Remeron) 15 MG tablet 025 Active nicotine polacrilex (Nicorette) 4 MG gum 1 each. 025 Active ondansetron ODT (Zofran-ODT) 4 MG disintegrating tablet 025 Active B-D 3CC LUER-SUSAN SYR 25GX5/8 25G X 5/8 3 ML misc USE directed ONCE monthly 025 Active albuterol (Proventil) (2.5 MG/3ML) 0.083% nebulizer solution INHALE CONTENTS OF 1 VIAL (3 ML) VIA NEBULIZER EVERY 4 HOURS NEEDED FOR WHEEZING Active furosemide (Lasix) 40 MG tablet Take 1 tablet by mouth daily. Active predniSONE (Deltasone) 20 MG tablet Take 5 mg by mouth daily. Active folic acid (Folvite) 1 MG tablet Take 1 tablet by mouth daily. 30 tablet 11 Active hydroxychloroqui ne (Plaquenil) 200 MG tablet Take 1 tablet by mouth daily. 30 tablet 3 Active methotrexate 2.5 MG tabletIndication s:Seropositive rheumatoid arthritis of multiple sites ([facility]/HCC) TAKE 6 TABLETS BYMOUTH ONCE WEEKLY 24 tablet 3 Active Adalimumab (Humira, 2 Pen,) 40 MG/0.8ML Auto-injector KitIndications:S eropositive rheumatoid arthritis of multiple sites ([facility]) Inject 1 each under the skin 1 time per week. 4 each 4 Active furosemide (Lasix) 20 MG tablet 018 2024 Discontinued fluticasone-salm eterol (Advair Diskus) 250-50 MCG/DOSE diskus inhaler 020 2024 Discontinued( Discontinued by another clinician) gabapentin (Neurontin) 600 MG tablet if needed. 022 2024 Discontinued( Discontinued by another clinician) valACYclovir (Valtrex) 1 g tablet 2024 Discontinued( Discontinued by another clinician) benzonatate (Tessalon) 100 MG capsule 2024 Discontinued( Discontinued by another clinician) ofloxacin (Floxin) 0.3 % otic solution 2024 Discontinued( Discontinued by another clinician) DULoxetine (Cymbalta) [address] capsule 023 2024 Discontinued( Duplicate order) brompheniramine- pseudoephedrine- DM 30-2-10 MG/5ML syrup 023 2024 Discontinued( Discontinued by another clinician) dextromethorphan -guaiFENesin (MUCINEX DM MAX STRENGTH) 60-1200 MG 12 hr tablet Take 1 tablet by mouth 2 (two) times a day if needed. 2024 Discontinued( Discontinued by another clinician) HYDROcodone-acet aminophen ([place]) 10-325 MG tablet Take 0.5 tablets (5 mg of hydrocodone) by mouth 2 (two) times a day if needed. 2024 Discontinued( Discontinued by another clinician) promethazine-dex tromethorphan (Phenergan-DM) 6.25-15 MG/5ML syrup Take 5 mL by mouth every 6 (six) hours if needed. 2024 Discontinued( Discontinued by another clinician) traMADol (Ultram) 50 MG tablet Take 1 tablet (50 mg) by mouth every 6 (six) hours if needed. 2024 Discontinued( Discontinued by another clinician) predniSONE (Deltasone) 5 MG tablet TAKE 1 TO 2 TABLETSBY MOUTH ONCE A DAY NEEDED FOR SEVERE PAIN 30 tablet 2024 Discontinued( Duplicate order) folic acid (Folvite) 1 MG tablet Take 1 tablet (1,000 mcg) by mouth 1 (one) time each day. 30 tablet 11 2024 Discontinued( Reorder) methotrexate 2.5 MG tabletIndication s:Seropositive rheumatoid arthritis of multiple sites ([facility]) TAKE 6 TABLETS BYMOUTH ONCE WEEKLY 24 tablet 2024 Discontinued( Reorder) predniSONE (Deltasone) 5 MG tablet TAKE 1 TO 2 TABLETS BY MOUTH ONCE A DAY NEEDED FOR SEVERE PAIN 30 tablet 2 2024 Discontinued( Duplicate order) predniSONE (Deltasone) 5 MG tablet TAKE 1 TO 2 TABLETS BY MOUTH ONCE A DAY NEEDED FOR SEVERE PAIN 30 tablet 2024 Discontinued( Duplicate order) hydroxychloroqui ne (Plaquenil) 200 MG tablet TAKE ONE TABLET BY MOUTH ONCE A DAY 30 tablet 2024 Discontinued( Reorder) Adalimumab (Humira, 2 Pen,) 40 MG/0.8ML Auto-injector KitIndications:S eropositive rheumatoid arthritis of multiple sites (CMS/HCC) Inject 40 mg under the skin 1 (one) time per week. 4 each 4 024 2024 Discontinued( Reorder) Active Problems Problem Noted Date Diagnosed Date [...] 08/28/2023 01/18/20 Hypokalemia 08/28/2023 01/18/2024 Immunosuppressed status 08/10/2023 12/06/2023 Osteopenia 08/10/2023 01/18/2024 Scoliosis 08/10/2023 01/18/2024 Unspecified [...] since. Pain in both upper arms 11/13/2022 120 06/2023 Overview (01/18/2024): Patient n with movement, lifting continuously Atherosclerosis of ambler ar addi of both lower extremities with intermittent claudication 01/11/2022 01/18/2024 Cigarette nicotine dependenc e with nicotine-induced disorder 01/11/2022 01/18/2024 Atherosclerosis of ambler ar addi of both lower extremities with bilateral ulceration 01/11/2022 01/18/2024 Ulcer of extremity due to ch ronic venous insufficiency 01/11/2022 01/18/2024 Varicose veins of bilateral lower extremities with other complications 01/11/2022 01/18/2024 History of colon polyps 10/01/202106/2023 Overview (01/18/2024): Diverticulitis with history of resection and tubular adenoma [address] silva at [facility] Wrist pain 01/01/2020 01/18/2024 Acute bronchitis, [...] Encounters Date Type Department Care Team Description 10/31/2024 1:50 PM EDT Office Visit [place] [facility] [address] [place] [address] Marta Willis, JERMAIN Seropositive rheumatoid arthritis of multiple sites ([facility]) 10/31/2024 Orders Only [facility] Medicine Specialties [address] [place] [address] William Solitario, PharmD Seropositive rheumatoid arthritis of multiple sites ([facility]) (Primary Dx) 10/31/2024 Travel 10/29/2024 Travel 09/30/2024 Refill [facility] Medicine Specialties [address] [place] [address] Marta Willis, JERMAIN 09/02/2024 Refill [facility] Medicine Specialties [address] [place] [address] Marta Willis, JERMAIN from Last 3 Months Immunizations Immunization Administration Dates Next Due Influenza Vaccine, Quadrivalent, Adjuvanted 11/14,11/24/2009 Influenza, recombinant, quad rivalent, injectable, preservative free 11/26/2021 Influenza, seasonal, injectable, preservative fr ee 12/16/2023 Moderna COVID-19 Vaccine (Acoustical Material Worker) 12+ years ,10/08/2020 Pneumococcal 20-ventura Conj Vaccine 07/09/2021 Tdap 10/01/2021,09/21/2011 Family History Medical History Relation Name Comments No Known Problems Brother 1 Diabetes Brother [address] neurological disorder Brother [address] Cancer Father Vern Erin Hypertension Father Vern Erin Arthritis Maternal Grandmother Danay Lopez Hearing loss Mother Alvina Erin Hypertension Mother Alvina [address] Arthritis Other 1 Other cancer Other 2 Heart Problem Other 3 Arthritis Paternal Grandmother Izzy [address] Diabetes Paternal Grandmother Izzy [address] Kidney disease Paternal Grandmother Izzy [address] Fibromyalgia Sister Char Jay Yogi Heart disease Sister Char Calix Relation Name Status Comments Brother 1 Brother 2 Tim Erin Father Vern Erin Maternal Grandmother Danay Lopez Mother Alvina Khan Other 1 Other 2 Other 3 Paternal Grandmother Izzy Khan Sister Char Calix Social History Tobacco Use Types Packs/Day [...] Mass Index 24.37 10/31/2024 1:36 PM EDT Plan of Treatment Upcoming Encounters Date Type Department Care Team (Late st Contact Info) Description 03/20/2025 12:50 PM EST Office Visit [place] [facility] [address] [place] [address] Marta Willis, CONTROL OPERATOR FLOW COAT [address] [place] [address] Health Maintenance Due Date Last Done Comments [facility]-Infant/Child/Adol SDOH Screenings 1962 [facility]- SDOH Screenings 1980 [facility]-Adult SDOH Screenings 1980 [facility]-Zoster Vaccines (1 of 2) 1981 [facility]-HPV/Cotest 1992 CT Colonography 10/04/2007 Colonoscopy 10/04/2007 FIT 10/04/2007 FOBT 10/04/2007 Sigmoidoscopy 10/04/2007 [id number] Vaccine (3 - Moderna risk series) 12/08/2020 11/10/2020, 10/08/2020 [facility]-RSV Vaccine: 60+ Years or (1 - Risk 60-74 years 1-dose series) 2022 [facility]-Bone Density Scan 11/24/2022 11/24/2021, 022 FIT-DNA 05/19/2023 05/18/2020 [facility]-Colorectal Cancer Screening 05/19/2023 [facility]-Influenza Vaccine (#1) 10/14/202412/15, 11/26/2021, 12/11/2010, Additional history exists [facility]-Medicare Annual Wellness (AWV) 12/15/2024 12/16/2023 [facility]-Cervical Cancer Screening 03/30/2025 [facility]-Pap Smear 03/30/2025 03/30/2022 [facility]-Breast Cancer Screening 04/16/2025 03/0 05/2023, 04/17/2023, 04/27/2021, Additional history exists [facility]-Depression Screening 10/31/2025 10/31/2024 [facility]-DTaP,Tdap,and Td Vaccines (3 - Td or Tdap) 10/02/2031 10/01/2021, 09/21/2011 [facility]-HIV Screening Completed 12/31/2019 [facility]-Hepatitis C Screening Completed 12/31/2019 [facility]-Pneumococcal Vaccine: 50+ Years Completed 07/09/2021 [facility]-Lung Cancer Screening Discontinued 2024, 08/30/2023, 07/27/2021 HPV Vaccines Aged Out No longer eligi [...] 7 AM EST 12/31/2019 12:05 PM EST Yarelis Hutchison APRN, DNP LAB BLOOD ORDERABLE S Final Result Performing Organization Address City/State/[facility] Co de Phone Number SUNQUEST * Hepatitis C Antibody (12/31/2019 10:47 AM EST) Hepatitis C Antibody NEGATIVE Reference Range: Negative [facility] 12/31/2019 10:4 7 AM EST 12/31/2019 12:05 PM EST Yarelis Hutchison APRN, DNP LAB BLOOD ORDERABLE S Final Result [facility] from Last 3 Months or Most Recently Relevant to Health Maintenance Insurance Care Teams Siebel Consultant Relationship Specialty Start Date End Date Patsy Hair MD [address] [place] [address] PCP - General 06/26/20
--- OUTSIDE RECORDS SUMMARY | 2024-11-07 11:34 | XMS_ITS | Encounter Summary ---
Author Organization Healthcare Address [address] [place] [address] Care Team Providers Care Chief Librarian Extension Department Name Role Phone Patsy Hair MD Primary Care Provider [phone] Reason for Visit * Reason Comments Med Refill Encounter Details Date Type Department Care Team (Late st Contact Info) Description 09/30/2024 Refill [facility] [address] [place] [address] Marta Willis L, SERVICE DIRECTOR [address] [place] [address] Social History Tobacco Use Types [...] Description 03/20/2025 12:50 PM EST Office Visit [place] [facility] [address] [place] [address] Marta Willis, SERVICE DIRECTOR [address] [place] [address] documented as of this encounter Visit Diagnoses Not on filedocumented in this encounter Additional Health Concerns Assessment Noted Time A fall risk assessment has been complete d for the patient 01/18/2024 8:55 AM EST A Body Mass Index follow-up plan has been documented for the patient 01/18/2024 9:38 AM EST documented as of this encounter Care Teams Chief Librarian Extension Department Relationship Specialty Start Date End Date Patsy Hair MD [address] [place] [address] PCP - General 06/26/20 documented as of this encounter
--- OUTSIDE RECORDS SUMMARY | 2024-11-07 11:34 | XMS_ITS | Encounter Summary ---
Author Organization Healthcare Address [address] [place] [address] Care Team Providers Care Linen Attendant Name Role Phone Patsy Hair MD Primary Care Provider [phone] Reason for Visit * Reason Comments Med Refill Encounter Details Date Type Department Care Team (Late st Contact Info) Description 09/02/2024 Refill [facility] [address] [place] [address] Marta Willis L, PREVENTATIVE MAINTENANCE TECHNICIAN [address] [place] [address] Social History Tobacco Use Types [...] Description 03/20/2025 12:50 PM EST Office Visit [facility] Medicine Specialties [address] [place] [address] Marta Willis, JERMAIN [address] [place] [address] documented as of this encounter Visit Diagnoses Not on filedocumented in this encounter Additional Health Concerns Assessment Noted Time A fall risk assessment has been complete d for the patient 01/18/2024 8:55 AM EST A Body Mass Index follow-up plan has been documented for the patient 01/18/2024 9:38 AM EST documented as of this encounter Care Teams Linen Attendant Relationship Specialty Start Date End Date Patsy Hair MD [address] [place] [id number] PCP - General 06/26/20 documented as of this encounter
--- OUTSIDE RECORDS SUMMARY | 2024-11-07 11:34 | XMS_ITS | Encounter Summary ---
Author Organization [facility] [place] [address] Care Team Providers Care Hunter Name Role Phone Patsy Hair MD Primary Care Provider [phone] Crystal Osborne MD Unavailable [phone] Encounter Details Date Type Department Care Team (Latest Contact Info) Description 10/27/2024 Travel Social History Tobacco Use Types Packs/Day [...] EST Appointment [facility] [address] [place] [address] Tiago Franz MD [address] [place] [address] 12/16/2024 9:30 AM EST Appointment GRT STRESS TEST [address] [place] [address] Tiago Franz MD [address] [place] [address] 12/16/2024 12:15 PM EST Appointment [facility] VASC[facility] LAB [place] [address] Tiago Franz MD [address] [place] [address] [place] [address] 01/20/2025 3:15 PM EST Office Visit [facility] Nephrology [address] [place] [address] Crystal Osborne MD [address] [facility] [address] [place] [address] 02/26/2025 10:40 AM EST Office Visit [facility] [place] 238 [place] [address] Tiago Franz MD [address] [facility] [place] [address] 09/25/2025 10:00 AM EDT Appointment [facility] OFC VASCULAR 20 [facility] [address] [place] [address] Ros, Amaris Camacho [address] [place] [address] 09/25/2025 11:00 AM EDT Office Visit [facility] 20 [facility] [address] [place] [address] [place] [address] [place] [address] documented as of this encounter Goals Goal Patient Goal Type Associated Problems Recent Progress Patient-Stated? Author Eat better, exercise, reach an ideal body weight General No Vanna Rooney RMAyaz Stay Tobacco Free Lifestyle No Vanna Rooney RMA documented as of this encounter Visit Diagnoses Not on filedocumented in this encounter Care Teams Hunter Relationship Specialty Start Date End Date Patsy Hair MD [address] [place] [address] PCP - General Family Medicine 07/19/13 Crystal Osborne MD [address] [place] [address] Internal Medicine-Nephrology 12/06/23 documented as of this encounter
--- OUTSIDE RECORDS SUMMARY | 2024-11-07 11:34 | XMS_ITS | Encounter Summary ---
Author Organization [facility] Address [address] [place] [address] Care Team Providers Care Buttermaker Name Role Phone Patsy Hair MD Primary Care Provider [phone] Reason for Referral * Medications - Authorized Specialty Diagnoses / Procedures Referred By Contac t Referred To Contact Diagnoses Seropositive rheumatoid arthritis of multiple sites ([facility]) Marta Willis APRN [address] [place] [address] Phone: tel: fax: Referral ID Status Reason Start Date Expiration Date V isits Requested Visits Authorized [id number] Authorized 07/29/2024 02/12/2025 1 1 Encounter Details Date Type Department Care Team (Late st Contact Info) Description 10/31/2024 Orders Only [facility] [address] [place] [address] William Solitario, [place] [address] Seropositive rheumatoid arthritis of multiple sites ([facility]) (Primary Dx) Social History Tobacco Use Types [...] encounter Miscellaneous Notes * Progress Notes - William Solitario PharmD - 10/31/2024 2:22 PM EDT 1 medication(s) has been approved per protocol. documented in this encounter Plan of Treatment Upcoming Encounters Date Type Department Care Team (Late st Contact Info) Description 03/20/2025 12:50 PM EST Office Visit [facility] [address] [place] [address] Marta Willis, COUNSELING SERVICES DIRECTOR [address] [place] [address] documented as of this encounter Visit Diagnoses Diagnosis Seropositive rheumatoid arthritis of multiple sites (CMS/HCC)- Primary documented in this encounter Additional Health Concerns Assessment Noted Time A fall risk assessment has been complete d for the patient 10/31/2024 1:52 PM EDT A Body Mass Index follow-up plan has been documented for the patient 10/31/2024 2:40 PM EDT documented as of this encounter Care Teams Buttermaker Relationship Specialty Start Date End Date Patsy Hair MD [address] [place] [address] PCP - General 06/26/20 documented as of this encounter
--- OUTSIDE RECORDS SUMMARY | 2024-11-07 11:34 | XMS_ITS | Encounter Summary ---
Author Organization Healthcare Address [address] [place] [address] Care Team Providers Care Eyeglass Lens Grinder Name Role Phone Patsy Hair MD Primary Care Provider [phone] Encounter Details Date Type Department Care Team (Latest Contact Info) Description 10/29/2024 Travel Social History Tobacco Use Types Packs/Day [...] Description 03/20/2025 12:50 PM EST Office Visit [place] [facility] [address] [place] [address] Marta Willis, JOB ESTIMATOR [address] [place] [address] documented as of this encounter Visit Diagnoses Not on filedocumented in this encounter Additional Health Concerns Assessment Noted Time A fall risk assessment has been complete d for the patient 01/18/2024 8:55 AM EST A Body Mass Index follow-up plan has been documented for the patient 01/18/2024 9:38 AM EST documented as of this encounter Care Teams Eyeglass Lens Grinder Relationship Specialty Start Date End Date Patsy Hair MD [address] [place] [address] PCP - General 06/26/20 documented as of this encounter
--- OUTSIDE RECORDS SUMMARY | 2024-11-07 11:34 | XMS_ITS | Encounter Summary ---
Author Organization [place] [address] Care Team Providers Care Tobacco Acreage Measurer Name Role Phone Patsy Hair MD Primary Care Provider [phone] Crystal Osborne MD Unavailable [phone] Reason for Visit * Reason Comments Medication Refill Encounter Details Date Type Department Care Team (Late st Contact Info) Description 10/20/2024 Refill [facility] [address] [place] [address] Patsy Hair MD [address] [place], [place] [phone] Medication Refill Social History Tobacco Use Types [...] Refills Last Filled Start Date End Date terbinafine HCL (LAMISIL) 250 mg Oral TabletIndications:T inea pedis of both feet TAKE 1 TABLET BY MOUTH ONCE A DAY 30 Tablet 1 10/21/2024 documented in this encounter Plan of Treatment Upcoming Encounters Date Type Department Care Team (Late st Contact Info) Description 12/16/2024 8:30 AM EST Appointment [facility]RT NUC MED [address] [place] [address] Tiago Franz MD [address] [place] [address] [place] [address] 12/16/2024 9:30 AM EST Appointment GRT STRESS TEST [address] [place] [address] Tiago Franz MD [address] [place] [address] [place] [address] 12/16/2024 12:15 PM EST Appointment [facility] [address] [place] [address] Tiago Franz MD [address] [place] [address] [address] [place], [place] [id number] 01/20/2025 3:15 PM EST Office Visit [facility] Nephrology Amandeep 238 [place] [address] Crystal Osborne MD [address] [facility] [address] [place] [address] 02/26/2025 10:40 AM EST Office Visit [facility] [place] 238 [place] [address] Tiago Franz MD [address] [place] [address] [place] [address] 09/25/2025 10:00 AM EDT Appointment [facility] MED OFC VASCULAR 20 [facility] [address] [place] [address] Amaris Sommer APRN [address] [place] [address] [address] [place] [address] 09/25/2025 11:00 AM EDT Office Visit [facility] [address] [place] [address] [address] [place] [address] JuneAmaris APRN [address] [place] [address] [address] [place] [address] documented as of this encounter Goals Goal Patient Goal Type Associated Problems Recent Progress Patient-Stated? Author Eat better, exercise, reach an ideal body weight General No Vanna Rooney RMA Stay Tobacco Free Lifestyle No Vanna Rooney RMA documented as of this encounter Visit Diagnoses Diagnosis Tinea pedis of both feet documented in this encounter Discontinued Medications Medication Sig Discontinue Reason Start Date End Da te terbinafine HCL (LAMISIL) 250 mg Oral TabletIndications:Tinea pedis of both feet TAKE 1 TABLET BY MOUTH ONCE A DAY 07/24/202410/21/2024 documented as of this encounter Care Teams Tobacco Acreage Measurer Relationship Specialty Start Date End Date Patsy Hair MD [address] [place] [phone] PCP - General Family Medicine 07/19/13 Crystal Osborne MD [address] [place] [address] Internal Medicine-Nephrology 12/06/23 documented as of this encounter
--- OUTSIDE RECORDS SUMMARY | 2024-11-07 11:34 | XMS_ITS | Encounter Summary ---
Author Organization [place] [address] Care Team Providers Care Spiral Winder Name Role Phone Patsy Hair MD Primary Care Provider [phone] Crystal Osborne MD Unavailable [phone] Reason for Visit * Reason Onset Date Comments Relaying Information 11/06/2024 90 day supp ly needed for future refills Encounter Details Date Type Department Care Team (Late st Contact Info) Description 11/06/2024 Telephone [facility] 100 [place] [address] Patys Hair MD [address] [place] [id number] Relaying Information (90 day supply needed for future refills ) Social History Tobacco Use Types Packs/Day [...] Author No 04/06/2024 9:40 AM DOMO Miller Winnie Mei, VALEA * Is the person blind or does he/she have serious difficulty seeing even when wearing glasses? Answer Date of Assessment Author No 04/06/2024 9:40 AM Winnie Pinto Mei, RMA * Does this person have serious difficulty walking or climbing stairs? Answer Date of Assessment Author No 04/06/2024 9:40 AM DOMO Miller Winnie Mei VALEA * Does this person have [...] Date Author No 04/06/2024 9:40 AM DOMO Miller Winnie Mei ALESIA documented in this encounter Miscellaneous Notes * Telephone Encounter - Doris Grace MA - 11/06/2024 2:55 PM EDT [place] * Telephone Encounter - Doreen Aguilar - 11/06/2024 12:08 PM EDT Select the most appropriate reason for this telephone message: Relaying Information Relaying Information Who is Calling: Patient What information is the caller relaying: per pt her insurance is asking for 90 day supply on refills moving forward. *No refills are needed at this time per pt. Pt just wanted to let Dr. Hair know ahead of time. Further follow-up needed? No Return Method of Communication:Phone call Additional Information:N/A documented in this encounter Plan of Treatment Upcoming Encounters Date Type Department Care Team (Late st Contact Info) Description 12/16/2024 8:30 AM EST Appointment [facility] [place] [address] Tiago Franz MD [address] [place] [address] [address] [place] [id number] 12/16/2024 9:30 AM EST Appointment GRT STRESS TEST [address] [place] [address] Tiago Franz MD [address] [place] [address] [place] [address] 12/16/2024 12:15 PM EST Appointment [facility] 238 [facility] [place] [address] Tiago Franz MD [address] [place] [address] [place] [address] 01/20/2025 3:15 PM EST Office Visit [facility] Nephrology [address] 238 [place] [address] Crystal Osborne MD [address] [place] [address] [place] [address] 02/26/2025 10:40 AM EST Office Visit [facility] [place] 238 [place] [address] Tiago Franz MD [address] [place] [address] [place] [address] 09/25/2025 10:00 AM EDT Appointment [facility] OFC VASCULAR [address] [place] [address] [address] [place] [address] Amaris Sommer APRN [address] [place] [address] DR CHAN [address] [place] [address] 09/25/2025 11:00 AM EDT Office Visit [facility] [address] [place] [address] [address] [place] [address] May, Amaris Camacho APRN [address] [facility] [address] [place], [place] [id number] documented as of this encounter Goals Goal Patient Goal Type Associated Problems Recent Progress Patient-Stated? Author Eat better, exercise, reach an ideal body weight General No Vanna Rooney RMA Stay Tobacco Free Lifestyle No Vanna Rooney RMA documented as of this encounter Visit Diagnoses Not on filedocumented in this encounter Care Teams Spiral Winder Relationship Specialty Start Date End Date Patsy Hair MD 100 [place], [place] [phone] PCP - General Family Medicine 07/19/13 Crystal Osborne MD [address]30 [facility] [address] [place] [address] Internal Medicine-Nephrology 12/06/23 documented as of this encounter
--- OUTSIDE RECORDS SUMMARY | 2024-11-07 11:34 | XMS_ITS | Encounter Summary ---
Author Organization [facility] [place] [address] Care Team Providers Care Rock Wool Insulator Name Role Phone Patsy Hair MD Primary Care Provider Crystal Osborne MD Unavailable [phone] Encounter Details Date Type Department Care Team (Latest Contact Info) Description 10/09/2024 Travel Social History Tobacco Use Types Packs/Day [...] EST Appointment GRT NUC MED [address] [place] [address] Tiago Franz MD [address] [place] [address] 12/16/2024 9:30 AM EST Appointment GRT STRESS TEST [address] [place] [address] Tiago Franz MD [address] [place] [address] 12/16/2024 12:15 PM EST Appointment GRT VASCULAR LAB [place] [address] Tiago Franz MD [address] [place] [address] [place] [address] 01/20/2025 3:15 PM EST Office Visit [facility] Nephrology Amandeep [address] [place] [address] Crystal Osborne MD 830 [facility] [address] [place] [address] 02/26/2025 10:40 AM EST Office Visit [facility] [place] 238 [place] [address] Tiago Franz MD [address] [facility] [place] [address] 09/25/2025 10:00 AM EDT Appointment [facility] MED OFC VASCULAR 20 [facility] [address] [place] [address] Ros, Amaris Camacho [address] [place] [address] 09/25/2025 11:00 AM EDT Office Visit [facility] 20 [facility] [address] [place] [address] [place] [address] [address] [place] [address] documented as of this encounter Goals Goal Patient Goal Type Associated Problems Recent Progress Patient-Stated? Author Eat better, exercise, reach an ideal body weight General No Vanna Rooney RMAyaz Stay Tobacco Free Lifestyle No Vanna Rooney RMA documented as of this encounter Visit Diagnoses Not on filedocumented in this encounter Care Teams Rock Wool Insulator Relationship Specialty Start Date End Date Patsy Hair MD 100 [place] [address] PCP - General Family Medicine 07/19/13 Crystal Osborne MD [address] [facility] [address] [place] [address] Internal Medicine-Nephrology 12/06/23 documented as of this encounter
--- OUTSIDE RECORDS SUMMARY | 2024-11-07 11:34 | XMS_ITS | Encounter Summary ---
Author Organization [place] [address] Care Team Providers Care It Service Technician Name Role Phone Patsy Hair MD Primary Care Provider [phone] Crystal Osborne MD Unavailable [phone] Reason for Visit * Reason Comments Medication Refill Encounter Details Date Type Department Care Team (Late st Contact Info) Description 09/02/[address] [facility] 100 [place] [address] Patsy Hair MD [address] [place], [place] [phone] Medication Refill Social History Tobacco Use Types [...] reflux disease without esophagitis,Immuno compromised,Athero sclerosis of quechan artery of both lower extremities with intermittent [...] Appointment GRT NUC MED [address] [place] [address] Tiago Franz MD [address] [place] [address] [place] [address] 12/16/2024 9:30 AM EST Appointment GRT STRESS TEST [address] [place] [address] Tiago Franz MD [address] [place] [address] [place] [address] 12/16/2024 12:15 PM EST Appointment [facility] V[facility] LAB [address] [place], [place] [address]nes [place] [address] Tiago Franz MD [address] [place] [address] [place] [address] 01/20/2025 3:15 PM EST Office Visit [facility] Nephrology [address] [place] [address] Crystal Osborne MD [address]30 [facility] [address] [place] [address] 02/26/2025 10:40 AM EST Office Visit [facility] [place] 238 [place] [address] Tiago Franz MD [address] [place] [address] [place] [address] 09/25/2025 10:00 AM EDT Appointment [facility] OFC VASCULAR [address] [place] [address] [address] [place] [address] Amaris Sommer APRN [address] [place] [address] DR CHAN [address] [place], [place] [address] 09/25/2025 11:00 AM EDT Office Visit [facility] [address] [facility] [address] [place] [address] Amaris Sommer MULTI MEDIA SPECIALIST [address] [facility] [address] [place], [place] [phone] documented as of this encounter Goals Goal [...] reflux Immunocompromised 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 Atherosclerosis of quechan arteries of the extremities with intermittent claudication [...] geal reflux disease without esophagitis,Immunocompr omised,Atherosclerosis of quechan artery of both lower extremities with intermittent claudication,PAD (peripheral artery disease),Stage 3b chronic kidney disease (HCC) TAKE 1 TABLET BY MOUTH EVERY EVENING, MAY TAKE ADDITIONAL 1/2 TABLET EVERY MORNING AND EVERY AFTERNOON NEEDED 08/02/2024 09/02/2024 documented as of this encounter Care Teams It Service Technician Relationship Specialty Start Date End Date Patsy Hair MD [address] [place], [place] [id number] PCP - General Family Medicine 07/19/13 Crystal Osborne MD [address] [facility] [address] [place] [address] Internal Medicine-Nephrology 12/06/23 documented as of this encounter
--- OUTSIDE RECORDS SUMMARY | 2024-11-07 11:35 | XMS_ITS | Encounter Summary ---
Author Organization [facility] Address [address] [place] [address] Care Team Providers Care Breakfast Hostess Name Role Phone Patsy Hair MD Primary Care Provider [phone] Reason for Visit * Reason Onset Date Comments Med Refill 03/30/2021 Encounter Details Date Type Department Care Team (Late st Contact Info) Description 03/30/2021 Refill [facility] [address] [place] [phone] Yarelis Hutchison, CHIEF TECHNOLOGY OFFICER, DNP [address] [address] Social History Tobacco Use Types [...] Description 03/20/2025 12:50 PM EST Office Visit [facility] [address] 2[address] [place] [address] Marta Willis, CHIEF TECHNOLOGY OFFICER [address] [place] [address] documented as of this encounter Visit Diagnoses Not on filedocumented in this encounter Additional Health Concerns Assessment Noted Time A fall risk assessment has been complete d for the patient 11/23/2020 2:47 PM EDT documented as of this encounter Care Teams Breakfast Hostess Relationship Specialty Start Date End Date Patsy Hair MD [address] [place] [address] PCP - General 06/26/20 documented as of this encounter
--- OUTSIDE RECORDS SUMMARY | 2024-11-07 11:35 | XMS_ITS | Encounter Summary ---
Author Organization [facility] Address [address] [place] [address] Care Team Providers Care Piercing Specialist Name Role Phone Patsy Hair MD Primary Care Provider Crystal Osborne MD Unavailable [phone] Reason for Visit * Reason Onset Date Comments Medication Refill 09/09/2024 Encounter Details Date Type Department Care Team (Late st Contact Info) Description 09/09/2024 Refill [facility] Nephrology [place] [address] [facility] [address] [place] [address] Crystal Osborne MD [address] [place] [address] Medication Refill Social History Tobacco Use Types [...] 04/06/2024 9:40 AM Winnie Pinto RMAyaz * Is the person blind or does he/she have serious difficulty seeing even when wearing glasses? Answer Date of Assessment Author No 04/06/2024 9:40 AM Winnie Pinto RMAyaz * Does this person have serious difficulty walking or climbing stairs? Answer Date of Assessment Author No 04/06/2024 9:40 AM Winnie Pinto RMA * Does this person have difficulty dressing or bathing? Answer Date of Assessment Author No 04/06/2024 9:40 AM Winnie Pinto RMAyaz * Because of a physical, mental or emotional condition, does this person have difficulty doing errands alone such as visiting a doctor's office or shopping? Answer Date of Assessment Author No 04/06/2024 9:40 AM Winnie Pinto RMAyaz documented as of this encounter Mental [...] Appointment [facility]RT NUC MED [address] [place] [address] Tiago Franz MD [address] [place] [address] [place] [address] 12/16/2024 9:30 AM EST Appointment GRT STRESS TEST [address] [place] [address] Tiago Franz MD [address] [place] [address] [place] [address] 12/16/2024 12:15 PM EST Appointment [facility]RT VASCULAR LAB 238 [facility] [place] [address] Tiago Franz MD [address] [place] [address] [place] [address] 01/20/2025 3:15 PM EST Office Visit [facility] Nephrology [address] [place] [address] Crystal Osborne MD [address] [facility] [address] [place] [address] 02/26/2025 10:40 AM EST Office Visit [facility] [place] [address] [place] [address] Tiago Franz MD [address] [place] [address] [place] [address] 09/25/2025 10:00 AM EDT Appointment [facility] VASCULAR [address] [place] [address] [place] [address] Amaris Sommer APRN [address] [place] [address] [address]AN [address] [place] [address] 09/25/2025 11:00 AM EDT Office Visit [facility] [address] [place] [address] [place] [address] Amaris Sommer APRN [address] [place] [address] [address] CHAN [address] [place] [id number] documented as of this encounter Goals Goal [...] documented as of this encounter Care Teams Piercing Specialist Relationship Specialty Start Date End Date Patsy Hair MD 100 [place] [address] PCP - General Family Medicine 07/19/13 Crystal Osborne MD [address] [facility] [address] [place] [address] Internal Medicine-Nephrology 12/06/23 documented as of this encounter
--- OUTSIDE RECORDS SUMMARY | 2024-11-07 11:35 | XMS_ITS | Encounter Summary ---
Author Organization [place] [address] Care Team Providers Care Director Of Acquisition Marketing Name Role Phone Patsy Hair MD Primary Care Provider [phone] Crystal Osborne MD Unavailable [phone] Reason for Visit * Reason Onset Date Comments Results 09/15/2024 Lab result given Encounter Details Date Type Department Care Team (Late Contact Info) Description 09/15/2024 Results Follow-Up [facility] 100 [place] [id number] Patsy Hair MD 100 [place] [address] CBC WITH DIFF, COMPREHENSIVE METABOLIC PANEL, LIPID [...] Appointment [facility] N[facility] MED [address] [place] [address] Tiago Franz MD [address] [place] [address] [place] [address] 12/16/2024 9:30 AM EST Appointment GRT STRESS TEST [address] [place] [address] Tiago Franz MD [address] [place] [address] [place] [address] 12/16/2024 12:15 PM EST Appointment [facility] VASCULAR LAB [address] [place] [address] Tiago Franz MD [address] [place] [address] [place] [address] 01/20/2025 3:15 PM EST Office Visit [facility] Nephrology Amandeep 238 [place] [address] Crystal Osborne MD 830 [facility] [address] [place] [address] 02/26/2025 10:40 AM EST Office Visit [facility] [place] 238 [place] [address] Tiago Franz MD [address] [place] [address] [place] [address] 09/25/2025 10:00 AM EDT Appointment [facility] VASCULAR [address] [facility] [address] [facility] [address] [place] [address] Amaris Sommer APRN [address] [place] [address] DR CHAN [address] [place] [address] 09/25/2025 11:00 AM EDT Office Visit [facility] [address] [facility] [place] [address] MayAmaris SURGICAL PATHOLOGIST [address] [facility] [address] [place] [address] documented as of this encounter Goals Goal Patient Goal Type Associated Problems Recent Progress Patient-Stated? Author Eat better, exercise, reach an ideal body weight General No Vanna Rooney, RMA Stay Tobacco Free Lifestyle No Vanna Rooney RMA documented as of this encounter Visit Diagnoses Not on filedocumented in this encounter Care Teams Director Of Acquisition Marketing Relationship Specialty Start Date End Date Patsy Hair MD 100 [place], [place] [id number] PCP - General Family Medicine 07/19/13 Crystal Osborne MD 830 [facility] [address] [place] [address] Internal Medicine-Nephrology 12/06/23 documented as of this encounter
--- OUTSIDE RECORDS SUMMARY | 2024-11-07 11:35 | XMS_ITS | Encounter Summary ---
Author Organization [place] [address] Care Team Providers Care Bartender Helper Name Role Phone Patsy Hair MD Primary Care Provider [phone] Crystal Osborne MD Unavailable [phone] Reason for Visit * Reason Onset Date Comments Medication Refill 09/24/2024 Encounter Details Date Type Department Care Team (Late st Contact Info) Description 09/24/2024 Refill [facility] 100 [place] [phone] Patsy Hair MD 100 [place] [address] Medication Refill Social History Tobacco Use Types [...] Appointment GRT NUC MED [address] [place] [address] Tiago Franz MD [address] [place] [address] [place] [address] 12/16/2024 9:30 AM EST Appointment GRT STRESS TEST [address] [place] [address] Tiago Franz MD [address] [place] [address] [place] [address] 12/16/2024 12:15 PM EST Appointment [facility] LAB [address] [place] [address] Tiago Franz MD [address] [place] [address] [place] [address] 01/20/2025 3:15 PM EST Office Visit [facility] Nephrology Amandeep 238 [place] [address] Crystal Osborne MD [address] [phone] 02/26/2025 10:40 AM EST Office Visit [facility] 238 [place] [address] Tiago Franz MD [address] [place] [address] [place] [address] 09/25/2025 10:00 AM EDT Appointment [facility] VASCULAR 20 [facility] [address] [place] [address] Amaris Sommer [address] CHAN [address] [place] [address] 09/25/2025 11:00 AM EDT Office Visit [facility] 20 [facility] 254 [place] [address] Amaris Sommer [address] CHAN [address] [place] [address] documented as of this encounter Goals Goal Patient Goal Type Associated Problems Recent Progress Patient-Stated? Author Eat better, exercise, reach an ideal body weight General No Vanna Rooney RMA Stay Tobacco Free Lifestyle No Vanna Rooney RMA documented as of this encounter Visit Diagnoses Diagnosis Wheeze Wheezing COPD with acute exacerbation (HCC) Obstructive chronic bronchitis with exacerbation documented in this encounter Care Teams Bartender Helper Relationship Specialty Start Date End Date Patsy Hair MD 100 [place] [id number] PCP - General Family Medicine 07/19/13 Crystal Osborne MD 830 [facility] [address] [address] Internal Medicine-Nephrology 12/06/23 documented as of this encounter
--- OUTSIDE RECORDS SUMMARY | 2024-11-07 11:35 | XMS_ITS | Encounter Summary ---
Author Organization [place] [address] Care Team Providers Care Bus Matron Name Role Phone Patsy Hair MD Primary Care Provider [phone] Crystal Osborne MD Unavailable [phone] Encounter Details Date Type Department Care Team (Late st Contact Info) Description 09/20/2024 Results Follow-Up [facility] 100 [place] [phone] Patsy Hair MD 100 [place] [address] COMPREHENSIVE METABOLIC PANEL Social History Tobacco Use [...] Appointment GRT NUC MED [address] [place] [address] Tiago Franz MD [address] [place] [address] [place] [address] 12/16/2024 9:30 AM EST Appointment GRT STRESS TEST [address] [place] [address] Tiago Franz MD [address] [place] [address] [place] [address] 12/16/2024 12:15 PM EST Appointment [facility]RT [place] [address] Tiago Franz MD [address] [place] [address] [place] [address] 01/20/2025 3:15 PM EST Office Visit [facility] Nephrology Amandeep 238 [place] [address] Crystal Osborne MD 830 [facility] [address] [place] [address] 02/26/2025 10:40 AM EST Office Visit [facility] [place] 238 [place] [address] Tiago Franz MD 711 [facility] [place], [place] [address] 09/25/2025 10:00 AM EDT Appointment [facility] VASCULAR 20 [facility] [address] [place] [address] Amaris Sommer FILTER PRESS TENDER HEAD[address] CHAN [address] [place] [address] 09/25/2025 11:00 AM EDT Office Visit [facility] 20 [facility] [address] [place] [address] Amaris Somemr [address] CHAN [address] [place], [place] [address] documented as of this encounter Goals Goal Patient Goal Type Associated Problems Recent Progress Patient-Stated? Author Eat better, exercise, reach an ideal body weight General No Vanna Rooney RMA Stay Tobacco Free Lifestyle No Vanna Rooney RMA documented as of this encounter Visit Diagnoses Not on filedocumented in this encounter Care Teams Bus Matron Relationship Specialty Start Date End Date Patsy Hair MD 100 [place] [id number] PCP - General Family Medicine 07/19/13 Crystal Osborne MD [address] [facility] [address] [place] [address] Internal Medicine-Nephrology 12/06/23 documented as of this encounter
--- OUTSIDE RECORDS SUMMARY | 2024-11-07 11:35 | XMS_ITS | Encounter Summary ---
Author Organization [facility] [place] [address] Care Team Providers Care Drafter Cartographic Name Role Phone Patsy Hair MD Primary Care Provider [phone] Crystal Osborne MD Unavailable [phone] Encounter Details Date Type Department Care Team [...] EST Appointment GRT NUC MED [address] [place] [address] Tiago Franz MD [address] [place] [address] 12/16/2024 9:30 AM EST Appointment GRT STRESS TEST [address] [place] [address] Tiago Franz MD [address] [place] [address] 12/16/2024 12:15 PM EST Appointment GRT VASCULAR LAB Celine [place] [address] Tiago Franz MD [address] [place] [address] [place] [address] 01/20/2025 3:15 PM EST Office Visit [facility] Nephrology Amandeep 238 [place] [address] Crystal Osborne MD [address] [facility] [address] [place] [address] 02/26/2025 10:40 AM EST Office Visit [facility] [place] 238 [place] [address] Tiago Franz MD [address] [facility] [facility] [place] [address] 09/25/2025 10:00 AM EDT Appointment [facility] VASCULAR 20 [facility] [address] [place] [address] Ros, Amaris Camacho [address] [place] [address] 09/25/2025 11:00 AM EDT Office Visit [facility] 20 [facility] [address] [place] [address] [address]is [address] [place] [address] documented as of this encounter Goals Goal Patient Goal Type Associated Problems Recent Progress Patient-Stated? Author Eat better, exercise, reach an ideal body weight General No Vanna Rooney RMAyaz Stay Tobacco Free Lifestyle No Vanna Rooney RMA documented as of this encounter Visit Diagnoses Not on filedocumented in this encounter Care Teams Drafter Cartographic Relationship Specialty Start Date End Date Patsy Hair MD 100 [place] [address] PCP - General Family Medicine 07/19/13 Crystal Osborne MD [address] [facility] [address] [place] [address] Internal Medicine-Nephrology 12/06/23 documented as of this encounter
--- OUTSIDE RECORDS SUMMARY | 2024-11-07 11:35 | XMS_ITS | Encounter Summary ---
Author Organization [place] [address] Care Team Providers Care Laboratory Mechanic Helper Name Role Phone Patsy Hair MD Primary Care Provider [phone] Crystal Osborne MD Unavailable [phone] Reason for Visit * Reason Onset Date Comments Relaying Information 09/24/2024 Case Manage ment Plan from [facility] faxed Encounter Details Date Type Department Care Team (Late st Contact Info) Description 09/24/2024 Telephone [facility] 100 [place] [address] Patsy Hair MD 100 [place] [address] Relaying Information (Case Management Plan from [facility] faxed) Social History Tobacco Use Types [...] Information Who is Calling: 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 [facility] is following up with PCP who participates in the case management program to develop a care plan for the patient. This care plan was faxed to the provider by the chief growth officer yesterday. If this fax is returned, Brigitte does not need a return call back. Further follow-up needed? No Return Method of Communication:N/A Additional Information:N/A documented in this encounter Plan of Treatment Upcoming Encounters Date Type Department Care Team (Late st Contact Info) Description 12/16/2024 8:30 AM EST Appointment [facility]RT NUC MED [address] [place] [address] Tiago Franz MD [address] [place] [address] [place] [address] 12/16/2024 9:30 AM EST Appointment GRT STRESS TEST [address] [place] [address] Tiago Franz MD [address] [place] [address] [place] [address] 12/16/2024 12:15 PM EST Appointment [facility] VASCULAR LAB [address] [place], [place] [address] [address] Tiago Franz MD [address] [place] [address] [place] [address] 01/20/2025 3:15 PM EST Office Visit [facility] Nephrology Amandeep 238 [place] [address] Crystal Osborne MD 830 [facility] [address] [place] [address] 02/26/2025 10:40 AM EST Office Visit [facility] [place] 238 [place] [address] Tiago Franz MD [address] [place] [address] [place] [address] 09/25/2025 10:00 AM EDT Appointment [facility] VASCULAR [address] [facility] [address] [place] [address] Amaris Sommer APRN [address] [facility] [address] [place] [address] 09/25/2025 11:00 AM EDT Office Visit [facility] [address] [facility] [address] [place] [address] Amaris Sommer PYROMETALLURGICAL ENGINEER [address] [facility] [address] [place], [place] [id number] documented as of this encounter Goals Goal Patient Goal Type Associated Problems Recent Progress Patient-Stated? Author Eat better, exercise, reach an ideal body weight General No Vanna Rooney, RMA Stay Tobacco Free Lifestyle No Vanna Rooney RMA documented as of this encounter Visit Diagnoses Not on filedocumented in this encounter Care Teams Laboratory Mechanic Helper Relationship Specialty Start Date End Date Patsy Hair MD 100 [place], [place] [id number] PCP - General Family Medicine 07/19/13 Crystal Osborne MD 830 [facility] [address] [place] [address] Internal Medicine-Nephrology 12/06/23 documented as of this encounter
--- OUTSIDE RECORDS SUMMARY | 2024-11-07 11:35 | XMS_ITS | Encounter Summary ---
Author Organization [place] [address] Care Team Providers Care Vending Machine Coin Collector Name Role Phone Patsy Hair MD Primary Care Provider [phone] Crystal Osborne MD Unavailable [phone] Encounter Details Date Type Department Care Team (Late st Contact Info) Description 09/20/2024 Orders Only [facility] 100 [place] [address] Patsy Hair MD 100 [place] [address] Decreased potassium in the blood (Primary Dx) [...] Appointment GRT NUC MED [address] [place] [address] Tiago Franz MD [address] [place] [address] [place] [address] 12/16/2024 9:30 AM EST Appointment GRT STRESS TEST [address] [place] [address] Tiago Franz MD [address] [place] [address] [place] [address] 12/16/2024 12:15 PM EST Appointment [facility]RT VASCULAR LAB 238 [place] [address] Tiago Franz MD [address] [place] [address] [place] [address] 01/20/2025 3:15 PM EST Office Visit [facility] Nephrology Amandeep 238 [place] [address] Crystal Osborne MD [address] [facility] [address] [place] [address] 02/26/2025 10:40 AM EST Office Visit [facility] [place] 238 [place] [address] Tiago Franz MD 711 [place], [place] [address] 09/25/2025 10:00 AM EDT Appointment [facility] VASCULAR 20 [facility] [address] [place] [address] Amaris Sommer [address] [place], [place] [address] 09/25/2025 11:00 AM EDT Office Visit [facility] 20 [facility] [address] [place] [address] Amaris Sommer [address] [place], [place] [address] documented as of this encounter Goals Goal Patient Goal Type Associated Problems Recent Progress Patient-Stated? Author Eat better, exercise, reach an ideal body weight General No Vanna Rooney RMA Stay Tobacco Free Lifestyle No Vanna Rooney RMA documented as of this encounter Results * [...] 09/20/2024 4:30 PM EDT [facility] Anion Gap 12 7 - 16 mmol/L 09/20/2024 4:30 PM EDT [facility] Calcium 8.9 8.8 - 10.4 mg/dL 09/20/2024 4:30 PM EDT [facility] Glucose Lvl 98 70 - 99 mg/dL 09/20/2024 4:30 PM EDT [facility] BUN 12 8 - 23 mg/dL 09/20/2024 4:30 PM EDT [facility] Creatinine 1.38(H) 0.51 - 1.30 mg/dL 09/20/2024 4:30 PM EDT [facility] Albumin 3.9 3.2 - 4.6 gm/dL 09/20/2024 4:30 PM EDT [facility] Total Protein 6.6 6.4 - 8.3 gm/dL 09/20/2024 4:30 PM EDT [facility] Bili Total 0.3 0.2 - 1.3 mg/dL 09/20/2024 4:30 PM EDT [facility] ALT 12 <=41 U/L 09/20/2024 4:30 PM EDT [facility] AST 21 <=40 U/L 09/20/2024 4:30 PM EDT [facility] Alk Phos 59 36 - 123 U/L 09/20/2024 4:30 PM EDT [facility] eGFR (CKD-EPIcr 2020) 43(L) >=60 mL/min/1.7 3 m2 09/20/2024 4:30 PM EDT [facility] Comment:Estimated GFR was ca lculated using the CKD-EPIcr (2020) equation refit without race. The equation is recommended by the National Kidney Foundation - [place] Society of Nephrology Task Force. Blood VENOUS BLOOD / Unknown Venipuncture / Unknown 09/20/2024 8:42 AM EDT 09/20/2024 8:42 AM EDT us Patsy Hair MD CHEMISTRY ORDERABLES Final Res ult [email or web address] , [address] [place], [place] [id number] documented in this encounter Visit Diagnoses Diagnosis Decreased potassium in the blood- Primary Hypopotassemia documented in this encounter Care Teams Vending Machine Coin Collector Relationship Specialty Start Date End Date Patsy Hair MD 100 [place] [address] PCP - General Family Medicine 07/19/13 Crystal Osborne MD [address] [place] [address] Internal Medicine-Nephrology 12/06/23 documented as of this encounter
--- OUTSIDE RECORDS SUMMARY | 2024-11-07 11:35 | XMS_ITS | Encounter Summary ---
Author [place] [address] Care Team Providers Care Statistical Modeler Name Role Phone Patsy Hair MD Primary Care Provider [phone] Crystal Osborne MD Unavailable [phone] Reason for Visit * Reason Onset Date Comments Referral 09/11/2024 Encounter Details Date Type Department Care Team (Late Contact Info) Description 09/11/2024 Telephone [facility] [address] [place] [address] Yulissa Conti, Clerical Staff Referral [...] Assessment Author No 04/06/2024 9:40 AM EST Miller Winniekavon Hurley ALESIA * Does this person have serious difficulty walking or climbing stairs? Answer Date of Assessment Author No 04/06/2024 9:40 AM DOMO Miller Winniekavon Hurley ALESIA * Does this person have difficulty dressing or bathing? Answer Date of Assessment Author No 04/06/2024 9:40 AM Winnie Pinto Mei VALEA * Because of a physical, mental [...] Appointment [facility] NUC MED [address] [place] [address] Tiago Franz MD [address] [place] [address] [place] [address] 12/16/2024 9:30 AM EST Appointment GRT STRESS TEST 238 [place] [address] Tiago Franz MD [address] [place] [address] [place] [address] 12/16/2024 12:15 PM EST Appointment [facility] [place] [address] Tiago Franz MD [address] [place] [address] [place], [place] [address] 01/20/2025 3:15 PM EST Office Visit [facility] Nephrology Amandeep 238 [place] [address] Crystal Osborne MD [address] [facility] [address] [place] [address] 02/26/2025 10:40 AM EST Office Visit [facility] [place] 238 [place] [address] Tiago Franz MD [address] [place] [address] 09/25/2025 10:00 AM EDT Appointment [facility] VASCULAR 20 [facility] [address] [place] [address] MayAmaris GR[employer] [address] [place] [address] 09/25/2025 11:00 AM EDT Office Visit [facility] 20 [facility] [address] [place] [address] Amaris Sommer [employer] [address] [place] [address] [address] [place] [address] documented as of this encounter Goals Goal Patient Goal Type Associated Problems Recent Progress Patient-Stated? Author Eat better, exercise, reach an ideal body weight General No Vanna Rooney RMA Stay Tobacco Free Lifestyle No Vanna Rooney RMA documented as of this encounter Visit Diagnoses Not on filedocumented in this encounter Care Teams Statistical Modeler Relationship Specialty Start Date End Date Patsy Hair MD 100 [place] [address] PCP - General Family Medicine 07/19/13 Crystal Osborne MD [address] [address] Internal Medicine-Nephrology 12/06/23 documented as of this encounter
--- OUTSIDE RECORDS SUMMARY | 2024-11-07 11:35 | XMS_ITS | Clinical Summary ---
Author Organization [facility] Address [address] [place] [address] Phone Care Team Providers Care Payroll Benefits Clerk Name Role Phone Patsy Hair MD Primary Care Provider [phone] Crystal Osborne MD Unavailable [phone] Allergies No known active allergies Medications folic acid (FOLVITE) 1 mg Oral Tablet Take 1 mg by mouth daily. Active methotrexate 2.5 mg Oral Tablet Take 2.5 mg by mouth once a week. Take 6 tabs PO every week Active hydrOXYchloroQU INE (PLAQUENIL) 200 mg Oral TabletIndicatio ns:Rheumatoid arthritis, involving unspecified site, unspecified whether rheumatoid factor present ([facility]) 07/10/19 22 Active HUMIRA PEN 40 mg/0.8 mL SubQ Pen Injector KitIndications: Rheumatoid arthritis, involving unspecified site, unspecified whether rheumatoid factor present ([facility]) 07/23/19 22 Active triamcinolone (KENALOG) 0.1 % Top OintmentIndicat ions:Cracked skin APPLY TOPICALLY TO AFFECTED AREA 2 TIMES A DAY FOR 10 DAYS 80 g 10/24/19 22 Active clotrimazole (LOTRIMIN) 1 % Top Cream Apply topically 2 times daily. 24 g 10/24/19 22 Active mupirocin (BACTROBAN) 2 % Top OintmentIndicat ions:Cellulitis of leg, left Apply topically 3 times daily. 15 g 10/24/19 22 Active Additional Information Patient not taking.Reported on 10/30/2024 diclofenac (VOLTAREN) 1 % Top Gel 07/19/19 Active cyanocobalamin 1,000 mcg/mL Inj SolutionIndicat ions:Vitamin B 12 deficiency Inject 1 mL into the muscle every 30 days. [place]/syringe also please 1 mL 11 10/31/19 Active nicotine (NICODERM CQ) 21 mg/24 hr TD Patch [address] 1 Patch onto the skin every 24 hours. 28 Patch 1 12/16/19 Active ferrous sulfate 325 mg (65 mg iron) Oral Tablet Take 1 Tablet by mouth daily. 90 Tablet 3 12/18/19 24 Active Syringe with Needle, Disp, (BD LUER-SUSAN SYRINGE) 3 mL 25 x 5/8 Misc Syringe USE DIRECTED ONCE MONTHLY 1 Each 06/06/19 Active lidocaine (LIDODERM) 5 % Top Adhesive Patch, Medicated Place 1 Patch onto the skin daily. 30 Patch 06/06/19 Active mirtazapine (REMERON) 15 mg Oral TabletIndicatio ns:Rheumatoid arthritis, involving unspecified site, unspecified whether rheumatoid factor present (HCC),Unintende d weight loss Take 1 Tablet by mouth nightly. 90 Tablet 3 06/06/19 25 Active albuterol (PROVENTIL) 2.5 mg /3 mL (0.083 %) Inhl Solution for NebulizationInd ications:Dyspne a, unspecified type Take 3 mL by nebulization every 4 hours as needed for Wheezing. 1620 mL 07/03/19 25 Active predniSONE (DELTASONE) 20 mg Oral TabletIndicatio ns:COPD with acute exacerbation (HCC) TAKE 3 TABLETS BY MOUTH ONCE A DAY FOR 3 DAYS THEN DECREASE BY 1 TABLET EVERY 3 DAYS UNTIL GONE 18 Tablet 2 07/04/19 25 Active Additional Information Patient not taking.Reported on 10/30/2024 Brompheniramine -Pseudoeph-DM 2-30-10 mg/5 mL Oral Syrup Take 10 mL by mouth every 4 hours as needed. 240 mL 1 07/23/19 25 Active potassium chloride (KLOR-CON M) 20 mEq Oral Tab Sust.Rel. Particle/Conchita lIndications:Hy pokalemia Take 1 Tablet by mouth daily. 90 Tablet 3 09/10/19 25 Active gabapentin (NEURONTIN) 800 mg Oral TabletIndicatio ns:Rheumatoid arthritis, involving unspecified site, unspecified whether rheumatoid factor present ([facility]),Vitamin B 12 deficiency,Melissa roesophageal reflux disease without esophagitis,Imm unocompromised, Atherosclerosis of miami artery of both lower extremities with intermittent claudication,PA D (peripheral artery disease),Stage 3b chronic kidney disease (HCC) TAKE 1 TABLET BY MOUTH EVERY EVENING MAY TAKE ADDITIONAL 1/2 TABLET EVERY MORNING AND EVERY AFTERNOON NEEDED 60 Tablet 09/12/19 25 Active rivaroxaban (XARELTO) 2.5 mg Oral Tablet Take 1 Tablet by mouth 2 times daily. 60 Tablet 5 09/12/19 25 Active albuterol (PROVENTIL HFA;VENTOLIN HFA) 90 mcg/actuation Inhl HFA Aerosol InhalerIndicati ons:Wheeze Inhale 2 Puffs into the lungs every 4 hours as needed. for wheezing 18 g 2 09/12/19 25 Active budesonide-glyc opyr-formoterol (BREZTRI AEROSPHERE) 160-9-4.8 mcg/actuation Inhl HFA Aerosol InhalerIndicati ons:COPD with acute exacerbation ([facility]) Inhale 2 Puffs into the lungs 2 times daily. 10.7 g 11 09/12/19 25 Active alendronate (FOSAMAX) 70 mg Oral Tablet Take 1 Tablet by mouth once a week. 12 Tablet 3 09/12/19 25 Active cariprazine (VRAYLAR) 1.5 mg Oral CapsuleIndicati ons:Generalized anxiety disorder,Recurr ent major depression resistant to treatment Take 1 Capsule by mouth daily. 90 Capsule 09/12/19 25 Active clopidogreL (PLAVIX) 75 mg Oral Tablet Take 1 Tablet by mouth daily. 90 Tablet 09/12/19 25 Active doxepin (SINEQUAN) 10 mg Oral Capsule Take 1 Capsule by mouth nightly. 90 Capsule 09/12/19 25 Active DULoxetine (CYMBALTA) 60 mg Oral Capsule, Delayed Release(E.C.)In dications:Gener alized anxiety disorder,Recurr ent major depression resistant to treatment Take 2 Capsules by mouth daily. 200 Capsule 1 09/12/19 25 Active escitalopram oxalate (LEXAPRO) 20 mg Oral TabletIndicatio ns:Generalized anxiety disorder Take 1 Tablet by mouth daily. 90 Tablet 3 09/12/19 25 Active famotidine (PEPCID) 40 mg Oral TabletIndicatio ns:Generalized abdominal pain Take 1 Tablet by mouth every evening. 90 Tablet 3 09/12/19 25 Active omeprazole (PRILOSEC) 40 mg Oral Capsule, Delayed Release(E.C.) TAKE 1 CAPSULE BY MOUTH ONCE A DAY 90 Capsule 3 09/12/19 25 Active rimegepant (NURTEC ODT) 75 mg Oral Tablet, Rapid DissolveIndicat ions:Migraine without aura and without status migrainosus, not intractable DISSOLVE 1 TABLET ON THE TONGUE EVERY 48 HOURS ONLY NEEDED FOR MIGRAINE 8 Tablet 6 09/12/19 25 Active atorvastatin (LIPITOR) 40 mg Oral Tablet Take 1 Tablet by mouth daily. 90 Tablet 3 09/12/19 25 Active ANORO ELLIPTA 62.5-25 mcg/actuation Inhl Disk with DeviceIndicatio ns:COPD with acute exacerbation (HCC) Inhale 1 Puff into the lungs daily. 60 Each 2 09/12/19 25 Active fUROsemide (LASIX) 20 mg Oral TabletIndicatio ns:Peripheral edema TAKE 1 TABLET BY MOUTH ONCE A DAY NEEDED FOR SWELLING 90 Tablet 1 09/12/19 25 Active doxycycline monohydrate (MONODOX) 100 mg Oral Capsule Take 100 mg by mouth 2 times daily. 10/08/19 25 Active TRELEGY ELLIPTA 200-62.5-25 mcg Inhl Disk with Device Inhale 1 Puff into the lungs daily. 10/06/19 25 Active fUROsemide (LASIX) 40 mg Oral Tablet Take 40 mg by mouth daily. 10/08/19 25 Active terbinafine HCL (LAMISIL) 250 mg Oral TabletIndicatio ns:Tinea pedis of both feet TAKE 1 TABLET BY MOUTH ONCE A DAY 30 Tablet 1 10/22/19 25 Active terbinafine HCL (LAMISIL) 250 mg Oral TabletIndicatio ns:Tinea pedis of both feet TAKE 1 TABLET BY MOUTH ONCE A DAY 30 Tablet 1 07/25/19 25 2024 Discontinued cyclobenzaprine (FLEXERIL) 10 mg Oral Tablet Take 1 Tablet by mouth every 8 hours as needed for Muscle spasms for up to 30 days. 90 Tablet 2 09/12/19 25 2024 cefdinir (OMNICEF) 300 mg Oral CapsuleIndicati ons:Community acquired pneumonia of left lower lobe of lung Take 1 Capsule by mouth 2 times daily for 10 days. 20 Capsule 10/12/19 25 2024 Hospital, Clinic, or Other Facility Administered Medication Ordered Dose Route Frequency Start Date End Date Status methylPREDNISolone sodium succinate (Solu-MEDROL) injection 125 mgIndications:Community acquired pneumonia of left lower lobe of lung 125 mg IM ONCE 10/11/2024 10/11/2024 Ended Active Problems Patient Care Coordination No te Formatting of this note migh t be different from the original. Care gap audit completed by Lisa Gerber RN on 12/21/2021. CSTA: 06/01/18 (TYPE): Chronic pain KEN: 04/15/17, 03/15/17 UDS: 06/01/18 GALO: 06/01/18 01/11/22 KEN #[id number] (as expected) Hill Santamaria MD Problem Noted [...] COPD (chronic obstructive pulmonary disease) Atherosclerosis of miami ar addi of both lower extremities with [...] tubular adenoma [address] silva at [facility] 01/27/2021 Overview (01/27/2021): [facility] Assessment & Plan (06/08/2024 7:02 PM [...] to renal disease 09/22/2023 12/17/2023 Atherosclerosis of miami ar addi of both lower extremities with bilateral ulceration 01/11/2022 06/08/2024 Ulcer of extremity due to ch ronic venous insufficiency 01/11/2022 06/08/2024 Basal cell carcinoma of skin, unspecified 08/14/2018 08/10/2023 Overview (08/10/2023): Ileostomy in place 09/05/2015 8 Overview (09/05/2015): Due to diverticulitis surgery Encounters Date Type Department Care Team Description 11/06/2024 Telephone [facility] [address] [place] [address] Patsy Hair MD Relaying Information (90 day supply needed for future refills ) 10/30/2024 9:40 AM EDT Office Visit [facility] [address] [address] Tiago Franz MD Routine adult health maintenance (Primary Dx); SOB (shortness of breath); Smoker; Chronic bronchitis, unspecified chronic bronchitis type (HCC); Abnormal CT scan of heart; ASCVD (arteriosclerotic cardiovascular disease); Primary hypertension 10/27/2024 Travel 10/20/2024 [address]ill [place] [address] [place] [address] Patsy Hair MD Medication Refill 10/11/2024 10:15 AM EDT Office Visit [place] [address] [address] [place] [address] Patsy Hair MD Community acquired pneumonia of left lower lobe of lung (Primary Dx); Visual disturbance; Chronic obstructive pulmonary disease, unspecified COPD type (HCC); CYP2C9 intermediate metabolizer (HCC); Fibrosis of lung (HCC); ILD (interstitial lung disease) (HCC) 10/09/2024 Travel 09/24/2024 Refill [place] [address] [place] [address] Patsy Hair MD Medication Refill 09/24/2024 Telephone [place] [address] [place] [address] Patsy Hair MD Relaying Information (Case Management Plan from [facility] faxed) 09/20/2024 8:45 AM EDT Clinical Support [facility] [place] [address] [place] [address] Shani Jimenez MA Decreased potassium in the blood 09/20/2024 Results Follow-Up [place] [address] [address] [place] [address] Patsy Hair MD COMPREHENSIVE METABOLIC PANEL 09/20/2024 Orders Only [facility] [address] [place] [address] Patsy Hair MD Decreased potassium in the blood (Primary Dx) 09/18/2024 Travel 09/15/2024 Results Follow-Up [facility] [place] [address] Patsy Hair MD CBC WITH DIFF, COMPREHENSIVE METABOLIC PANEL, LIPID SCREEN, Additional followed-up results: 3 09/11/2024 10:45 AM EDT Office Visit [facility] [place] [address] Patsy Hair MD Diverticulitis of large intestine without perforation or abscess without bleeding (Primary Dx); Rheumatoid arthritis, involving unspecified site, unspecified whether rheumatoid factor present (HCC); Vitamin B 12 deficiency; Gastroesophageal reflux disease without esophagitis; Immunocompromised; Atherosclerosis of miami artery of both lower extremities with intermittent claudication; PAD (peripheral artery disease); Stage 3b chronic kidney disease (HCC); Wheeze; COPD with acute exacerbation (HCC); Generalized anxiety disorder; Recurrent major depression resistant to treatment; Generalized abdominal pain; Migraine without aura and without status migrainosus, not intractable; Peripheral edema; Ventral incisional hernia without obstruction or gangrene; Coronary artery calcification seen on CT scan 09/11/2024 Telephone [facility] [place] [address] [place] [address] Yulissa Conti, Clerical Staff Referral 09/09/[address] [facility] Nephrology [place] [address] [facility] [address] [place] [address] Crystal Osborne MD Medication Refill 09/03/2024 Telephone [facility] [address] [place] [address] Patsy Hair MD Symptoms (Only Use If Pt Pushes Back On Scheduling A Visit) (Hernia) 09/03/2024 Telephone [facility] ATTN: Appointments in this department are performed at various locations in the community on our Cardiovascular mobile health unit. You can look online to verify your site or call [phone] [address] [facility] Mar[facility]quin, RN Results 09/02/2024 Refill [facility] [place] [facility] [address] [place] [address] Patsy Hair MD Medication Refill 08/30/2024 11:16 AM EDT - 08/30/2024 11:59 PM EDT Hospital Encounter [facility] [address] [place] [address] Patsy Hair MD Screening for malignant neoplasm of respiratory organ; Personal history of tobacco use, presenting hazards to health Discharge Disposition: Home or Self Care 08/30/2024 Orders Only [facility] [address] [facility] [address] Patsy Hair MD Screening for malignant neoplasm of respiratory organ (Primary Dx); Personal history of tobacco use, presenting hazards to health 08/27/2024 Refill [facility] [address] [place] [address] Patsy Hair MD Medication Refill 08/26/2024 9:00 AM EDT Office Visit [facility] [address] [facility] [address] [place] [address] Amaris Sommer APRN PAD (peripheral artery disease) (Primary Dx); Claudication of lower extremity with history of revascularization; Atherosclerosis of miami artery of both lower extremities with intermittent claudication; Stage 3a chronic kidney disease (HCC); Varicose veins of bilateral lower extremities with other complications; Cigarette nicotine dependence with nicotine-induced disorder; Rheumatoid arthritis of both hips, unspecified whether rheumatoid factor present (HCC) 08/23/2024 8:36 AM EDT - 08/23/2024 11:59 PM EDT Hospital Encounter [facility] [address] [place] [address] Amaris Sommer APRN PAD (peripheral artery disease); Claudication of lower extremity with history of revascularization Discharge Disposition: Home or Self Care 08/23/2024 Telephone [facility] [place] [facility] [address] [place] [address] Patsy Hair MD Relaying Information (pt stating has had cramps in legs and feet at night time for the last 3 week/ pt is taking the potassium and looking for advice ) 08/22/2024 Travel 08/22/2024 Refill [facility] [address] [place] [address] Hill Santamaria MD Medication Refill 08/10/2024 Refill [facility] [place] [facility] [address] [place] [address] Patsy Hair MD Medication Refill [...] LENS ; Surgeon: Mitesh Hammond MD; Location: [facility]; Service: Ophthalmology Medical devices from this surgery are in the Medical Devices section. CATARACT REMOVAL 10/06/2011 Right RIGHT EYE CATARACT EXTRACTION WITH PHACOEMULSIFICATION AND INTRAOCULAR LENS ; Surgeon: Mitesh Hammond MD; Location: [facility]; Service: Ophthalmology Medical devices from this surgery [...] awhile COPD (chronic obstructive pu lmonary disease) ([facility]) Hyperlipidemia Basal cell carcinoma of skin , unspecified 08/14/2018 Formatting of this note migh t be different from the original. Allergy Anemia Osteoporosis GERD (gastroesophageal reflux disease) Encounter for blood transfusion Cataract Depression Chronic kidney disease Colon polyp CHF (congestive heart failure) ([facility]) Family History Medical History Relation Name Comments Diabetes Brother Tim Nickerson Insulin no long er needed Cancer Father Jaene Gonzalez Esopagal th en spread everwhere Colon [...] Pulse 84 10/30/2024 9:41 AM EDT Temperature 36.7 C (98.1 F) 10/11/2024 10:35 AM EDT Respiratory Rate 16 06/07/2023 2:19 PM EDT Oxygen Saturation 97% 10/11/2024 10:35 AM EDT Inhaled Oxygen Concentration - - Weight 49 kg (108 lb) 10/30/2024 9:41 AM EDT Height 142.2 cm (4' 8 ) 10/30/2024 9:41 AM EDT Body Mass Index 24.21 10/30/2024 9:41 AM EDT Plan of Treatment Upcoming Encounters Date Type Department Care Team (Late st Contact Info) Description 12/16/2024 8:30 AM EST Appointment [facility] [address] [place] [address] Tiago Franz MD [address] [place] [address] 12/16/2024 9:30 AM EST Appointment [facility] [address] [place] [address] Tiago Franz MD [address] [place] [address] 12/16/2024 12:15 PM EST Appointment [facility] [address] [place] [address] Tiago Franz MD [address] [place] [address] 01/20/2025 3:15 PM EST Office Visit [facility] Nephrology [place] [address] [place] [address] Crystal Osborne MD [address] [facility] [facility] [place] [id number] 02/26/2025 10:40 AM EST Office Visit [facility] [place] [address] [place] [address] Tiago Franz MD [address] [place] [id number] 09/25/2025 10:00 AM EDT Appointment [facility] [address] [place] [address] June, Amaris Camacho NUCLEAR CONTROL ROOM OPERATOR [address] [place] [address] 09/25/2025 11:00 AM EDT Office Visit [facility] [address] [place] [address] JuneAmaris NUCLEAR CONTROL ROOM OPERATOR [address] [place] [address] [address] [place], [place] [id number] Health Maintenance Due Date Last Done Comments [...] 09/2013 (Declined), 02/13/2009 Breast Cancer Screening 04/16/2025 04/17/19 24, 04/27/2021, 11/15/2018, Additional history exists Low Dose [...] [facility] [employer] Medical Devices Implanted Type Area Furniture Detailer Device Identifier Shelf Expiration Date Model / Serial / Lot Lens Intraocular 24.5 Diopter Acrysof Iq 13.0mm Length 6.0mm Aspheric Optic 0 Degree Modified-L Haptic - [id number] Implanted:Qty: 1 on 09/22/2011 by Mitesh Hammond MD at [facility] Left: Eye YE LAB:SURG 02/14/2016 [id number] / [id number] / Lens Intraocular 23.5 Diopter Acrysof Iq 13.0mm Length 6.0mm Aspheric Optic 0 Degree Modified-L Haptic - [id number] Implanted:Qty: 1 on 10/06/2011 by Mitesh Hammond MD at [facility] YE LAB:SURG 06/13/2016 [id number] / [id number] / Procedures Procedure Name Priority Date/Time Associated Diagnosis Comments POCT EKG Routine 10/30/2024 9:44 AM EDT Routine adult health maintenance COMPREHENSIVE METABOLIC PANEL Routine 09/20/2024 8:42 AM EDT Decreased potassium in the blood VITAMIN D 25 HYDROXY Routine 09/11/2024 11:17 AM EDT Rheumatoid arthritis, involving unspecified site, unspecified whether rheumatoid factor present (HCC) Vitamin B 12 deficiency Gastroesophageal reflux disease without esophagitis Immunocompromised Atherosclerosis of miami artery of both lower extremities with intermittent [...] reflux disease without esophagitis Immunocompromised Atherosclerosis of miami artery of both lower extremities with intermittent [...] reflux disease without esophagitis Immunocompromised Atherosclerosis of miami artery of both lower extremities with intermittent [...] reflux disease without esophagitis Immunocompromised Atherosclerosis of miami artery of both lower extremities with intermittent [...] reflux disease without esophagitis Immunocompromised Atherosclerosis of miami artery of both lower extremities with intermittent [...] reflux disease without esophagitis Immunocompromised Atherosclerosis of miami artery of both lower extremities with intermittent [...] of tobacco use, presenting hazards to health [place] US LOWER EXTREMITY ARTERIAL DUPLEX COMPLETE Routine 08/23/2024 9:57 AM EDT PAD (peripheral artery disease) Claudication of lower extremity with history of revascularization COLONOSCOPY Routine 06/07/2023 1:47 PM EDT Weight loss Nausea MM MAMMO DIGITAL YOVANY SCREEN BILAT Routine 04/17/2023 9:09 AM EST Unintended weight loss Encounter for screening mammogram for breast cancer ALARM SECURITY OR SURVEILLANCE MONITOR CYTOLOGY REQUEST (PAP ONLY) Routine 03/30/2022 11:44 AM EST Pap smear for cervical cancer screening COLOGUARD Routine 05/18/2020 10:58 AM EDT Screening for colon cancer HCV ANTIBODY SCREEN W/ REFLEX Routine 09/03/2016 9:20 AM EDT Need for hepatitis C screening test from Last 3 Months or Most Recently Relevant to Health Maintenance Results * POCT EKG (10/30/2024 9:44 AM EDT) 10/30/2024 9:44 AM EDT Impressions [facility] - 10/30/2024 9:44 AM EDT NSR HR 84 Tiago Franz MD POINT OF CARE CARDIOLOGY F inal Result [facility] * (ABNORMAL) COMPREHENSIVE METABOLIC PANEL (09/20/2024 8:42 [...] mg/dL 09/20/2024 4:30 PM EDT PREFERRED LAB [facility] [place], [facility] Creatinine 1.38(H) 0.51 - 1.30 mg/dL 09/20/2024 4:30 PM EDT PREFERRED [facility], [facility] Albumin 3.9 3.2 - 4.6 gm/dL 09/20/2024 4:30 PM EDT [facility], [facility] Total Protein 6.6 6.4 - 8.3 gm/dL 09/20/2024 4:30 PM EDT [facility], [facility] Bili Total 0.3 0.2 - 1.3 mg/dL 09/20/2024 4:30 PM EDT PREFERRED LAB [facility] [place], [facility] ALT 12 <=41 U/L 09/20/2024 4:30 PM EDT [facility], [facility] AST 21 <=40 U/L 09/20/2024 4:30 PM EDT [facility], [facility] Alk Phos 59 36 - 123 U/L 09/20/2024 4:30 PM EDT [facility], [facility] eGFR (CKD-EPIcr 2020) 43(L) >=60 mL/min/1.7 3 m2 09/20/2024 4:30 PM EDT [facility] Comment:Estimated GFR was ca lculated using the CKD-EPIcr (2020) equation refit without race. The equation is recommended by the National Kidney Foundation - [place] [employer] of Nephrology Task Force. Blood VENOUS BLOOD / Unknown Venipuncture / Unknown 09/20/2024 8:42 AM EDT 09/20/2024 8:42 AM EDT us Patsy Hair MD CHEMISTRY ORDERABLES Final Res ult PREFERRED LAB [facility] [place], [facility] [address] , [place] [address] * (ABNORMAL) VITAMIN B12/ FOLIC ACID (09/11/2024 11:17 AM EDT) Vitamin B12 >1,600(H) 232 - 1,245 pg/mL 09/11/2024 5:04 PM EDT PREFERRED [facility], [facility] Folate >16.00 >=4.80 ng/mL 09/11/2024 5:04 PM EDT [facility] [employer] [facility] Blood VENOUS BLOOD / Unknown Venipuncture / Unknown 09/11/2024 11:17 AM EDT 09/11/2024 11:17 AM EDT Narrative [facility] [employer] [facility] - 09/11/2024 5:04 PM EDT Ingestion of eh doses of biotin (>5 mg/day) taken within 8 hours of drawing blood sample can interfere with this immunoassay test. us Patsy Hair MD CHEMISTRY ORDERABLES Final Res ult Performing Organization Address [facility] de Phone Number [facility] [employer] , [place] [address] * TSH REFLEX TO FT4 (09/11/2024 11:17 AM EDT) TSH Reflex 1.730 0.270 - 4.200 mcIU/mL 09/11/2024 3:17 PM EDT [facility] [employer] [facility] Blood VENOUS BLOOD / Unknown Venipuncture / Unknown 09/11/2024 11:17 AM EDT 09/11/2024 11:17 AM EDT Narrative [facility] [employer] [facility] - 09/11/2024 3:17 PM EDT Ingestion of eh doses of biotin (>5 mg/day) taken within 8 hours of drawing blood sample can interfere with this immunoassay test. us Patsy Hair MD CHEMISTRY ORDERABLES Final Res ult Performing Organization Address [facility] Phone Number [facility] [employer] , [place] [address] * VITAMIN D 25 HYDROXY (09/11/2024 11:17 AM EDT) Vit D 25 OH 44.0 30.0 - 150.0 ng/mL 09/11/2024 5:04 PM EDT [facility] [employer] [facility] [facility] Comment: Preferred: >= 30 ng/mL Insufficient: 21-29 [...] ORDERABLES Final Res ult [facility] [address] [facility] , [place] [address] * (ABNORMAL) CBC WITH DIFF (09/11/2024 11:17 [...] 09/11/2024 2:35 PM EDT [facility] Comment:Automated count of m etamyelocytes, myelocytes and promyelocytes. Lymph Percent 36.4 % 09/11/2024 2:35 PM EDT [facility] [place] Percent 6.2 % 09/11/2024 2:35 PM EDT [facility] Eos Percent 3.2 % 09/11/2024 2:35 PM EDT [facility] Baso Percent 0.5 % 09/11/2024 2:35 PM EDT [facility] Neut # 4.1 1.6 - 6.1 x10(3)/mcL 09/11/2024 2:35 PM EDT [facility] Comment:Neutrophils equals s egs plus bands IMMGRAN# 0.0 0.0 - 0.1 x10(3)/mcL 09/11/2024 2:35 PM EDT [facility] Comment:Automated count of m etamyelocytes, myelocytes and promyelocytes. An absolute IG <0.1 is reported as 0.0. Lymph # 2.8 1.2 - 3.9 x10(3)/mcL 09/11/2024 2:35 PM EDT [facility] [place]son # 0.5 0.3 - 0.9 x10(3)/mcL 09/11/2024 2:35 PM EDT [facility] Eos# 0.2 0.0 - 0.5 x10(3)/mcL 09/11/2024 2:35 PM EDT [facility], [facility] Baso # 0.0 0.0 - 0.1 x10(3)/mcL 09/11/2024 2:35 PM EDT [facility] [employer], [facility] Blood VENOUS BLOOD / Unknown Venipuncture / Unknown 09/11/2024 11:17 AM EDT 09/11/2024 11:17 AM EDT us Patsy Hair MD HEMATOLOGY ORDERABLES Final Re sult [facility] [address] [facility] , [place] [address] * LIPID SCREEN (09/11/2024 11:17 AM EDT) Cholesterol 189 <200 mg/dL 09/11/2024 3:17 PM EDT [facility] Comment: < 200 Desirable 200 - 239 Borderline High >= 240 High Triglyceride 93 <150 mg/dL 09/11/2024 3:17 PM EDT [facility] Comment: < 150 Normal 150 - 199 Borderline High 200 - 499 High >= 500 Very High HDL 86 >=40 mg/dL 09/11/2024 3:17 PM EDT [facility] Comment: > 60 Optimal 40 - 60 Acceptable < 40 Low LDL Calculated 87 <100 mg/dL 09/11/2024 3:17 PM EDT [employer] [facility] Comment: < 100 Optimal 100 - 129 Near or above optimal 130 - 159 Borderline High 160 - 189 High >= 190 Very High The National Institutes of Health (NIH) equation is used for all lipid panels that report calculated LDL (LDL-C). Non-HDL-C Calculated 103 <=129 mg/dL 09/11/2024 3:17 PM EDT [facility] Comment: <130 Desirable 130-159 Above Desirable 160-189 Borderline High 190-219 High >= 220 Very High Fasting Specimen? Yes None 025 3:17 PM EDT [facility] Blood VENOUS BLOOD / Unknown Venipuncture / Unknown 09/11/2024 11:17 AM EDT 09/11/2024 11:17 AM EDT us Patsy Hair MD CHEMISTRY ORDERABLES Final Res ult [facility] [address] [facility] , [address] [address] [place] [address] * CT LUNG CANCER SCREENING LOW DOSE [...] contact the office of the ordering clinician. [email or web address] Narrative 08/30/2024 11:[address] LUNG CANCER SCREENING LOW DOSE 08/30/2024 11:35 AM CLINICAL HISTORY: Asymptomatic patient meeting NCCN high risk criteria for lung screening. Z12.2-Encounter for screening for malignant neoplasm of respiratory woklyp-XBN-29-CM Z87.891-Personal history of nicotine qckxmrczgd-TQD-82-CM. COMPARISON: 08/30/2023 07/27/2021 PROCEDURE COMMENTS: Noncontrast, low-dose, multidetector CT chest per department protocol. Interactive 3-D postprocessing done by the reviewing physician on a [employer] workstation, using Maximum intensity projections (MIPS) and [employer] LUNG CAD for improved lesion detection. Ramos [...] Continued ANNUAL LOW-DOSE SCREENING CT SCAN (IMG 85745) suggested if age <78. Lung-RADS Modifier S: Clinically Significant or Potentially Significant Findings (Non Lung Cancer) Procedure Note Jose Calix MD - 08/30/2024 CT LUNG CANCER SCREENING LOW DOSE 08/30/2024 11:35 AM CLINICAL HISTORY: Asymptomatic patient meeting NCCN high risk criteria forlung screening. Z12.2-Encounter for screening for malignant neoplasm ofrespiratory oygyvl-INK-12-CM Z87.891-Personal history of nicotine vnaudcglrm-XIG-53-CM. COMPARISON: 08/30/2023 07/27/2021 PROCEDURE COMMENTS: Noncontrast, low-dose, multidetector CT chest perdepartment protocol. Interactive 3-D postprocessing done by the reviewing physicianon a [employer] workstation, using Maximum intensity projections (MIPS) and SYNGOLUNG CAD for improved lesion detection. Ramos images archived to PACS. Dose 1 : CT DLP Total : 30.7 mGycm DLP Spiral Max : 30.7 mGycm Maximum CTDI Vol : 0.9 mGy SSDE : 1.278 mGy SSDE Diameter : 26.2 cm SSDE Source : [employer] [place] FINDINGS: No suspicious pulmonary nodule. No acute inflammatory process. Heart and mediastinum unremarkable. There is a ventral hernia in theupper abdomen containing colon. No definite obstruction or incarceration. Coronary artery calcification: Moderate. FOLLOW-UP CODE: Lung-RADS Category 1: Negative: No nodule or definitelybenign nodule(s). Continued ANNUAL LOW-DOSE SCREENING CT SCAN (IMG 34753)suggested if age <78. Lung-RADS Modifier S: Clinically [...] please contactthe office of the ordering clinician. [email or web address] Patsy Hair MD [facility] [place] ORDERABLES Final Result * [facility] LOWER EXTREMITY ARTERIAL DUPLEX COMPLETE (08/23/2024 [...] flow pattern is noted in the left REMOTE ENCODING OPERATIONS SUPERVISOR and SFA. Monophasic doppler flow pattern in the DIRECTOR OF AGRICULTURE and NIURKA arteries. * Arterial atherosclerosis noted [...] flow pattern is noted in the left REMOTE ENCODING OPERATIONS SUPERVISOR and SFA. Monophasic doppler flow pattern in the DIRECTOR OF AGRICULTURE and NIURKA arteries. * Arterial atherosclerosis noted [...] of theleft peroneal artery. us Amaris Sommer APRN IMG VASCULAR ORDERABLES Final R esult * [...] Palomares MD Performing Provider Kayla Gomez RN Pump Machine Operator Terell Aiken CRNA FORMAT PROOFREADER Medications See Anesthesia Record. Preprocedure A history [...] Patient Out - Proc. Room 01:47 PM [place] Palomares MD ENDOSCOPY PROCEDURE ORDERABL ES Final Result * MM MAMMO DIGITAL YOVANY SCREEN BILAT (04/17/2023 9:09 AM EST) Anatomical Region Laterality Modality Breast Bilateral Mammography 04/17/2023 10:2 0 AM EST Impressions 04/17/2023 10:20 AM EST Negative (XJG-Movcrxdb-8) ~ RECOMMENDATION: Routine screening mammogram in 1 [...] the next mammogram, in accordance with the [place] [employer] and the Society of Breast Imaging recommendations. Narrative 04/17/2023 10:20 AM EST Procedure:MM MAMMO DIGITAL YOVANY SCREEN BILAT ~ Reason for exam: screening, asymptomatic. R63.4-Abnormal weight sjww-BEL-77-CM Z12.31-Encounter for screening mammogram for malignant neoplasm of fjfnoy-OIM-63-CM ~ MM MAMMO DIGITAL YOVANY SCREEN BILAT Bilateral CC and MLO view(s) were taken. There are scattered fibroglandular densities. Prior study comparison: Compared with prior studies the most recent being 04/27/21, 11/15/18 No mammographic evidence of malignancy. ~ Procedure Note Amparo Ugalde MD - 04/17/2023 Procedure:MM MAMMO DIGITAL YOVANY SCREEN BILAT ~ Reason for exam: screening, asymptomatic. R63.4-Abnormal weight imzd-WJE-65-CM Z12.31-Encounter for screening mammogram for malignant neoplasm of lzqinw-NGX-82-CM ~ MM MAMMO DIGITAL YOVANY SCREEN BILAT Bilateral CC and MLO view(s) were taken. There are scattered fibroglandular densities. Prior study comparison: Compared with prior studies the most recentbeing 04/27/21, 11/15/18 No mammographic evidence of malignancy. ~ IMPRESSION: Negative (FRN-Yvqiioga-9) ~ RECOMMENDATION: Routine screening mammogram in 1 [...] the next mammogram, in accordance with the [place] [employer] and the Society of Breast Imaging recommendations. Patsy Hair MD IM MAMMOGRAPHY ORDERABLES Fin al Result * (ABNORMAL) ALARM SECURITY OR SURVEILLANCE MONITOR CYTOLOGY REQUEST (PAP ONLY) (03/30/2022 11:44 AM EST) CASE REPORT Gynecologic Cytology Report Case: [id number] Authorizing Provider: Patsy Hair MD Collected: 03/30/2022 1144 Ordering Location: [facility] Received: 03/30/2022 1144 First Screen: Noah Fermin CT Pathologist: Shelli Cunningham MD Specimen: LIQUID-BASED PAP - CERVICAL/ENDOCERV ICAL, Cervix, Endocervical 03/31/2022 12:50 PM EST [facility] PAP FINAL DIAGNOSIS Low grade squamous intraepithelial lesion(A) 03/31/2022 12:50 PM EST [facility] at 1250 EST MICROSCOPIC DESCRIPTION Microscopic examination is performed and the findings corroborate the diagnosis. 03/31/2022 12:50 PM EST [facility] PAP SMEAR ADEQUACY Satisfactory for evaluation 03/31/2022 12:50 PM EST [facility] ENDOCERVICAL T-ZONE Transformation zone absent. 03/31/2022 12:50 PM EST [facility] EMBEDDED IMAGES 12:50 PM EST [facility] PAP DISCLAIMER The Pap Smear is a screening test that aids in the detection of cervical cancer and cancer precursors. Both false positive and false negative results can occur. The test should be used at regular intervals, and positive results should be confirmed before definitive therapy. Processed using the ThinPrep Prototype Special Build Automated cytology screening device ([employer]). 03/31/2022 12:50 PM EST [facility] Thin Prep ENDOCERVICAL STRUCTURE / Unknown 03/30/2022 11:44 AM EST 03/30/2022 11:44 AM EST us Patsy Hair MD CYTOLOGY ORDERABLES Final Resu lt [facility] [address] [place] [address] * COLOGUARD (05/18/2020 10:58 AM EDT) COLOGUARD CLINICAL REPORT Negative Not Applicable [facility] Comment: A negative result indicates [...] screened with both Cologuard and colonoscopy. (Flako Jones. et al, N Engl J Med 2014;370(14):2131-1989) The normal value (reference range) for this assay is negative. COLOGUARD RE-SCREENING RECOMMENDATION: Periodic routine colorectal cancer screening is an important part of preventive healthcare for asymptomatic persons at average risk for colorectal cancer. Following a negative Cologuard result, the [place] [employer] and U.S. Multi-Society Task Force screening guidelines recommend a Cologuard re-screening interval of 3 years. References: [place] [employer] (ACS). Colorectal cancer prevention and early detection. [place], [place]: [place] [employer]; [updated 2015Jun 06]. https://www.cancer.org/cancer/jjwpg-gwqrci-ubtdoa/pqycjpofq-nlcmwnuds-zqjvjmd/ac s-rec ommendations.html. Accessed October 13, 2017; Karl DK, Efrain CR, Isacc ShaferK, Colorectal Cancer Screening: Recommendations for Physicians and Patients from the U.S. Multi-Society Task Force on Colorectal Cancer Screening, Am J Gastroenterology 2017; 112:7972-0518. TEST TYPE: Composite algorithmic analysis of stool [...] interval of every 3 years by the [place] [employer] and U.S. Multi-Society Task Force. [...] can be accessed at the following location: www.Dynex.Logly/results. Additional description of the Cologuard test process, warnings and precautions can be found at www.cologuardtest.com. Rx only. Stool specimen (specimen) 05/18/2020 10:58 AM EDT 05/19/2020 5:43 PM EDT Patsy YOST SCIENCE - ORDERABLES Fin al Result [employer] [address] [place] [address], [facility] [employer] [place] [address] * HEPATITIS C ANTIBODY - SCREENING (09/03/2016 9:20 AM EDT) Hep C Ab Negative Negative [facility] Blood specimen (specimen) 09/03/2016 9:20 AM EDT 09/03/2016 3:54 PM EDT us Patsy Hair MD HEMATOLOGY ORDERABLES Final Re sult [facility] [address] [place] [address] from Last 3 Months or Most Recently Relevant to Health Maintenance [place] [address] DUAL COMPLETE O [facility] DUAL COMPLETE HMO [employer] Care Teams Payroll Benefits Clerk Relationship Specialty Start Date End Date Patsy Hair MD [address] [id number] PCP - General Family Medicine 07/19/13 Crystal Osborne MD [address] [place] [id number] Internal Medicine-Nephrology 12/06/23
--- NOTE | 2024-11-07 11:38 | XR_ITS ---
FINAL REPORT CLINICAL HISTORY: SOB cough COMPARISON: 05/27/2024 FINDINGS: PA and lateral views of the chest were obtained. The cardiac and mediastinal silhouettes are within normal limits. Left lower lobe opacity is unchanged. Given presence for 5 months this is likely chronic. Increased interstitial markings are chronic.. There is no pleural effusion or pneumothorax. Stable compression deformity of a midthoracic vertebral body. IMPRESSION: Likely chronic left lower lobe opacity. Chronic increased interstitial markings. Reviewed, Interpreted and Dictated by Shari Bucio MD Transcribed by Daniela Nuno Authenticated and [facility]
[2024-11-07 12:20] LABS: Hematocrit 42.0 % (37.0-47.0); Hemoglobin 13.6 g/dL (12.2-16.2); Immature Granulocytes % 1.0 %; Mean Corpuscular HGB Conc 32.4 g/dL (31.8-35.4); Mean Corpuscular Hemoglobin 31.3 pg (27.0-31.2); Mean Corpuscular Volume 96.8 fl (81-99); Nucleated Red Blood Cells % 0 %; Platelet Count 220 K/mm3 (142-424); Red Blood Count 4.34 M/mm3 (4.20-5.40); Red Cell Distribution Width-SD 50.4 fL; White Blood Count 10.2 K/mm3 (4.8-10.8)
[2024-11-07 12:57] LABS: C-Reactive Protein 0.4 mg/L (0-4)
== END 2024-11-07 23:59 | disposition home or self-care (01) ==
LOC: LAB 11:31
PROVIDERS: PCP Family Medicine; Visit Provider Internal Medicine Pulmonary Disease
DX: J84.9 Interstitial pulmonary disease, unspecified (principal); J45.909 Unspecified asthma, uncomplicated; R91.8 Other nonspecific abnormal finding of lung field
CPT/HCPCS: 36415; 71046; 85025; 85651; 86140

== ENCOUNTER 2024-12-19 10:37 | Outpatient (CLI) | payer MEDICARE, SELFPAY ==
--- OUTSIDE RECORDS SUMMARY | 2024-10-30 08:40 | XMS_ITS | Encounter Summary ---
Author Organization [place] [address] Care Team Providers Care General Service Technician Name Role Phone Patsy Hair MD Primary Care Provider [phone] Crystal Osborne MD Unavailable [phone] Reason for Referral * Stress (Routine) - Pending Review Specialty Diagnoses / Procedures Referred By Contac t Referred To Contact Radiology Diagnoses Routine adult health maintenance SOB (shortness of breath) Smoker Chronic bronchitis, unspecified chronic bronchitis type (HCC) Abnormal CT scan of heart ASCVD (arteriosclerotic cardiovascular disease) Primary hypertension Procedures ST STRESS TEST Marito Valle MD [address] [place] [address] Phone: tel: fax: Referral ID Status Reason Start Date Expiration Date V isits Requested Visits Authorized [id number] Pending Review 10/30/2024 10/30/2026 1 1 * Nuclear Medicine (Routine) - Authorized Specialty Diagnoses / Procedures Referred By Contac t Referred To Contact Radiology Diagnoses Routine adult health maintenance SOB (shortness of breath) Smoker Chronic bronchitis, unspecified chronic bronchitis type (HCC) Abnormal CT scan of heart ASCVD (arteriosclerotic cardiovascular disease) Primary hypertension Procedures NM MYOCARDIAL PERFUSION SPECT STRESS AND REST Marito Franz MD [address] [place] [address] Phone: tel: fax: Referral ID Status Reason Start Date Expiration Date V isits Requested Visits Authorized [id number] Authorized 10/30/2024 10/30/2025 5 5 * Echo (Routine) - Closed Specialty Diagnoses / Procedures Referred By Boubacar brown Referred To Contact Radiology Diagnoses Routine adult health maintenance SOB (shortness of breath) Smoker Chronic bronchitis, unspecified chronic bronchitis type (HCC) Abnormal CT scan of heart ASCVD (arteriosclerotic cardiovascular disease) Primary hypertension Procedures EC ECHOCARDIOGRAM COMPLETE W DOPPLER AND COLOR FLOW MAPPING Marito Franz MD [address] [place] [address] Phone: tel: fax: Referral ID Status Reason Start Date Expiration Date Visits Re quested Visits Authorized [id number] Closed 10/30/2024 10/30/2026 1 1 Reason for Visit * Reason Comments New Patient INSIDE WIREMAN, Rfl by Dr. Hair for atherosclerosis of mohegan artery of both lower extremities. * Consultation (Routine) - Authorization Not Needed Specialty Diagnoses / Procedures Referred By Boubacar brown Referred To Contact Cardiology Diagnoses Atherosclerosis of mohegan artery of both lower extremities with intermittent claudication PAD (peripheral artery disease) Coronary artery calcification seen on CT scan Procedures [place] OFFICE/OUTPATIENT NEW MODERATE MDM 45 MINUTES Patsy Hair MD [address] [place] [address] Phone: tel: fax: Chidi Enriquez MD [address] [place] [address] Phone: tel: fax: Referral ID Status Reason Start Date Expiration Date Visits Requested Visits Authorized [id number] Authorization Not Needed 09/11/2024 09/11/2025 99 99 Encounter Details Date Type Department Care Team (Latest Contact Info) Description 10/30/2024 9:40 AM EDT Office Visit [facility] [address] [address] Marito Franz MD [address] [facility] [address] [place], [place] [id number] Routine adult health maintenance (Primary Dx); SOB (shortness of breath); Smoker; Chronic bronchitis, unspecified chronic bronchitis type (HCC); Abnormal CT scan of heart; ASCVD (arteriosclerotic cardiovascular disease); Primary hypertension Social History Tobacco Use Types Packs/Day Years Used Date Smoking Tobacco: Every Day Cigarettes 1 72.8 Started: 02/13/1977 Passive Smoke Exposure: Current Smokeless [...] Sign Reading Time Taken Comments Blood Pressure 142/86 10/30/2024 9:41 AM EDT Pulse 84 10/30/2024 9:41 AM EDT Temperature - - Respiratory Rate - - Oxygen Saturation - - Inhaled Oxygen Concentration - - Weight 49 kg (108 lb) 10/30/2024 9:41 AM EDT Height 142.2 cm (4' 8 ) 10/30/2024 9:41 AM EDT Body Mass Index 24.21 10/30/2024 9:41 AM EDT documented in this encounter Functional [...] Winnie Pinto RMA documented in this encounter Progress Notes * Marito Franz MD - 10/30/2024 9:40 AM EDT Cardiology consultation Patient Name: Janee Mendez : 1960 HPI 64 yo seen in consultation More SOB Off and on chest pressure Recent CT reviewed No Hx CAD No prior cardiac testing No ETOH Fam Hx --NC EKG NSR HR 84 PAD --LE stents --Dr Santamaria --still smoking RA PAD CKD --Dr Osborne --Scr 1.38 IBS Smoker COPD ILD Anxiety GERD No BP meds --Controlled No lipid meds --LDL 87 CT lung CA 08/2023 Coronary artery calcification: Moderate. ROS Denies: fever, chills, nausea, vomiting, dizziness, headaches, diarrhea, constipation All other systems reviewed are negative Past Medical History: Diagnosis Date Allergy Anemia Anxiety Arthritis Rheumatoid arthritis Basal cell carcinoma of skin, unspecified 08/14/2018 Cataract CHF (congestive heart failure) (HCC) Chronic kidney disease Colon polyp COPD (chronic obstructive pulmonary disease) (HCC) Depression Encounter for blood transfusion GERD (gastroesophageal reflux disease) Headache(784.0) occasional Hyperlipidemia Hypoglycemia history of- not been a problem in awhile Irritable bowel syndrome Osteoarthritis Osteoporosis Current Outpatient Medications: albuterol (PROVENTIL HFA;VENTOLIN HFA) 90 mcg/actuation Inhl HFA Aerosol Inhaler, Inhale 2 Puffs into the lungs every 4 hours as needed. for wheezing, Disp: 18 g, Rfl: 2 albuterol (PROVENTIL) 2.5 mg /3 mL (0.083 %) Inhl Solution for Nebulization, Take 3 mL by nebulization every 4 hours as needed for Wheezing., Disp: 1620 mL, Rfl: 0 alendronate (FOSAMAX) 70 mg Oral Tablet, Take 1 Tablet by mouth once a week., Disp: 12 Tablet, Rfl:3 ANORO ELLIPTA 62.5-25 mcg/actuation Inhl Disk with Device, Inhale 1 Puff into the lungs daily., Disp: 60 Each, Rfl: 2 atorvastatin (LIPITOR) 40 mg Oral Tablet, Take 1 Tablet by mouth daily., Disp: 90 Tablet, Rfl: 3 Eonkohqvkfgvvwg-Cbolikste-DO 2-30-10 mg/5 mL Oral Syrup, Take 10 mL by mouth every 4 hours as needed., Disp: 240 mL, Rfl: 1 ipymnkrilv-ocixjtbf-jxumqnsdev (BREZTRI AEROSPHERE) 160-9-4.8 mcg/actuation Inhl HFA Aerosol Inhaler, Inhale 2 Puffs into the lungs 2 times daily., Disp: 10.7 g, Rfl: 11 cariprazine (VRAYLAR) 1.5 mg Oral Capsule, Take 1 Capsule by mouth daily., Disp: 90 Capsule, Rfl: 3 clopidogreL (PLAVIX) 75 mg Oral Tablet, Take 1 Tablet by mouth daily., Disp: 90 Tablet, Rfl: 3 clotrimazole (LOTRIMIN) 1 % Top Cream, Apply topically 2 times daily., Disp: 24 g, Rfl: 0 cyanocobalamin 1,000 mcg/mL Inj Solution, Inject 1 mL into the muscle every 30 days. [place]/syringe also please, Disp: 1 mL, Rfl: 11 diclofenac (VOLTAREN) 1 % Top Gel, , Disp: , Rfl: doxepin (SINEQUAN) 10 mg Oral Capsule, Take 1 Capsule by mouth nightly., Disp: 90 Capsule, Rfl: 3 DULoxetine (CYMBALTA) 60 mg Oral Capsule, Delayed Release(E.C.), Take 2 Capsules by mouth daily., Disp: 200 Capsule, Rfl: 1 escitalopram oxalate (LEXAPRO) 20 mg Oral Tablet, Take 1 Tablet by mouth daily., Disp: 90 Tablet, Rfl: 3 famotidine (PEPCID) 40 mg Oral Tablet, Take 1 Tablet by mouth every evening., Disp: 90 Tablet, Rfl:3 ferrous sulfate 325 mg (65 mg iron) Oral Tablet, Take 1 Tablet by mouth daily., Disp: 90 Tablet, Rfl: 3 folic acid (FOLVITE) 1 mg Oral Tablet, Take 1 mg by mouth daily., Disp: , Rfl: fUROsemide (LASIX) 20 mg Oral Tablet, TAKE 1 TABLET BY MOUTH ONCE A DAY NEEDED FOR SWELLING, Disp: 90 Tablet, Rfl: 1 fUROsemide (LASIX) 40 mg Oral Tablet, Take 40 mg by mouth daily., Disp: , Rfl: gabapentin (NEURONTIN) 800 mg Oral Tablet, TAKE 1 TABLET BY MOUTH EVERY EVENING MAY TAKE ADDITIONAL1/2 TABLET EVERY MORNING AND EVERY AFTERNOON NEEDED, Disp: 60 Tablet, Rfl: 0 HUMIRA PEN 40 mg/0.8 mL SubQ Pen Injector Kit, , Disp: , Rfl: hydrOXYchloroQUINE (PLAQUENIL) 200 mg Oral Tablet, , Disp: , Rfl: lidocaine (LIDODERM) 5 % Top Adhesive Patch, Medicated, Place 1 Patch onto the skin daily., Disp: 30 Patch, Rfl: 11 methotrexate 2.5 mg Oral Tablet, Take 2.5 mg by mouth once a week. Take 6 tabs PO every week, Disp:, Rfl: mirtazapine (REMERON) 15 mg Oral Tablet, Take 1 Tablet by mouth nightly., Disp: 90 Tablet, Rfl: 3 nicotine (NICODERM CQ) 21 mg/24 hr TD Patch 24 hr, Place 1 Patch onto the skin every 24 hours., Disp: 28 Patch, Rfl: 1 omeprazole (PRILOSEC) 40 mg Oral Capsule, Delayed Release(E.C.), TAKE 1 CAPSULE BY MOUTH ONCE A DAY, Disp: 90 Capsule, Rfl: 3 potassium chloride (KLOR-CON M) 20 mEq Oral Tab Sust.Rel. Particle/Crystal, Take 1 Tablet by mouth daily., Disp: 90 Tablet, Rfl: 3 rimegepant (NURTEC ODT) 75 mg Oral Tablet, Rapid Dissolve, DISSOLVE 1 TABLET ON THE TONGUE EVERY 48HOURS ONLY NEEDED FOR MIGRAINE, Disp: 8 Tablet, Rfl: 6 rivaroxaban (XARELTO) 2.5 mg Oral Tablet, Take 1 Tablet by mouth 2 times daily., Disp: 60 Tablet, Rfl: 5 Syringe with Needle, Disp, (BD LUER-SUSAN SYRINGE) 3 mL 25 x 5/8 Misc Syringe, USE DIRECTED ONCE MONTHLY, Disp: 1 Each, Rfl: 11 terbinafine HCL (LAMISIL) 250 mg Oral Tablet, TAKE 1 TABLET BY MOUTH ONCE A DAY, Disp: 30 Tablet, Rfl: 1 TRELEGY ELLIPTA 200-62.5-25 mcg Inhl Disk with Device, Inhale 1 Puff into the lungs daily., Disp: ,Rfl: triamcinolone (KENALOG) 0.1 % Top Ointment, APPLY TOPICALLY TO AFFECTED AREA 2 TIMES A DAY FOR 10 DAYS, Disp: 80 g, Rfl: 0 doxycycline monohydrate (MONODOX) 100 mg Oral Capsule, Take 100 mg by mouth 2 times daily. (Patientnot taking: Reported on 10/30/2024), Disp: , Rfl: mupirocin (BACTROBAN) 2 % Top Ointment, Apply topically 3 times daily. (Patient not taking: Reported on 10/30/2024), Disp: 15 g, Rfl: 0 predniSONE (DELTASONE) 20 mg Oral Tablet, TAKE 3 TABLETS BY MOUTH ONCE A DAY FOR 3 DAYS THEN DECREASE BY 1 TABLET EVERY 3 DAYS UNTIL GONE (Patient not taking: Reported on 10/30/2024), Disp: 18 Tablet,Rfl: 2 Social History Socioeconomic History Marital status: Spouse name: Not on file Number of children: Not on file Years of education: Not on file Highest education level: Not on file Occupational History Not on file Tobacco Use Smoking status: Every Day Current packs/day: 1.00 Average packs/day: 1 pack/day for 72.7 years (72.7 ttl pk-yrs) Types: Cigarettes Start date: 02/13/1977 Passive exposure: Current Smokeless tobacco: Never Tobacco comments: Quit in the past but always start back. Vaping Use Vaping status: Never Used Substance and Sexual Activity Alcohol use: Never Comment: occ Drug use: Never Sexual activity: Not Currently Partners: Male control/protection: Post-menopausal Other Topics Concern Not on file Social History Narrative Not on file Social Drivers of Health Financial Resource Strain: Not on file Food Insecurity: Not on file Transportation Needs: High Risk (09/20/2024) Received from [facility] SDOH Screening 4. has lack of transportation kept you from attending medical appointments, meetings, work, or fromgetting things needed for daily living? select all that apply.: Yes, it has kept me from medical appointments Physical Activity: Not on file Stress: Not on file Social Connections: Not on file Intimate Partner Violence: Low Risk (11/01/2020) Received from [facility] Intimate Partner Violence Insults You: Not on file Threatens You: Not on file Screams at You: Not on file Physically Hurt: Not on file Intimate Partner Violence Score: Not on file Housing Stability: Not on file Past Surgical History: Procedure Laterality Date ABDOMEN SURGERY CATARACT REMOVAL 09/22/2011 LEFT EYE CATARACT EXTRACTION WITH PHACOEMULSIFICATION AND INTRAOCULAR LENS ; Surgeon: Mitesh Hammond MD; [facility]; Service: Ophthalmology CATARACT REMOVAL 10/06/2011 RIGHT EYE CATARACT EXTRACTION WITH PHACOEMULSIFICATION AND INTRAOCULAR LENS ; Surgeon: Mitesh Hammond MD; [facility]; Service: Ophthalmology CERVIX SURGERY dysplasia COLON SURGERY [...] - both legs TUBAL LIGATION VASCULAR SURGERY No Known Allergies Family History Problem Relation Age of Onset [...] no longer needed Anesth Problems Neg Hx Objective Vitals: 10/30/24 0941 BP: 142/86 Pulse: 84 Physical Exam: Gen: No acute distress Neck: No JVD, No bruit Head is Normal cephalic, Pupils are equally round . Pulm: Normal breath sounds bilateral, no wheezes, rals or ronchi CV: Normal S1 S2- No S3, No S4, No Murmur, rub or gallop Neuro: Alert and oriented X 3, No gross deficits Ext: No edema No results found for this visit on 10/30/24. Labs Lab Results Component Value Date CHOLESTEROL 189 09/11/2024 CHOLESTEROL 178 08/26/2023 CHOLESTEROL 151 03/22/2023 HDL 86 09/11/2024 HDL 116 08/26/2023 HDL 80 03/22/2023 LDLCALC 87 09/11/2024 LDLCALC 53 08/26/2023 LDLCALC 57 03/22/2023 TRIG 93 09/11/2024 TRIG 44 08/26/2023 TRIG 72 03/22/2023 Lab Results Component Value Date INR 0.97 02/16/2022 Lab Results Component Value Date WBC 7.6 09/11/2024 WBC 15.5 (H) 05/08/2024 WBC 15.3 (H) 12/11/2023 HGB 15.2 09/11/2024 HGB 12.2 05/08/2024 HGB 11.3 12/11/2023 HCT 46.9 (H) 09/11/2024 HCT 40.5 05/08/2024 HCT 38.3 12/11/2023 MCV 94.0 09/11/2024 MCV 89.4 05/08/2024 MCV 94.1 12/11/2023 PLT 253 09/11/2024 PLT 306 05/08/2024 PLT 306 12/11/2023 Lab Results Component Value Date HGBA1C 5.4 03/22/2023 HGBA1C 5.6 08/03/2019 HGBA1C 5.7 04/15/2017 Lab Results Component Value Date NA 143 09/20/2024 NA 142 09/11/2024 NA 140 05/08/2024 K 4.1 09/20/2024 K 3.1 (L) 09/11/2024 K 3.3 (L) 05/08/2024 BUN 12 09/20/2024 BUN 10 09/11/2024 BUN 25 (H) 05/08/2024 CALCIUM 8.9 09/20/2024 CALCIUM 9.2 09/11/2024 CALCIUM 8.9 05/08/2024 CL 109 (H) 09/20/2024 CL 103 09/11/2024 CL 104 05/08/2024 CO2 22 09/20/2024 CO2 28 09/11/2024 CO2 25 05/08/2024 CREATININE 1.38 (H) 09/20/2024 CREATININE 1.37 (H) 09/11/2024 CREATININE 1.47 (H) 05/08/2024 GLU 98 09/20/2024 GLU 123 (H) 09/11/2024 GLU 91 05/08/2024 Lab Results Component Value Date ALT 12 09/20/2024 ALT 11 09/11/2024 ALT 12 03/22/2023 AST 21 09/20/2024 AST 24 09/11/2024 AST 26 03/22/2023 ALKPHOS 59 09/20/2024 ALKPHOS 73 09/11/2024 ALKPHOS 74 03/22/2023 Assessment Patient Active Problem List Diagnosis Date Noted CYP2C9 intermediate metabolizer (HCC) 01/19/2024 Iron deficiency anemia 12/18/2023 Acute colitis 12/16/2023 Acute pain of left knee 12/16/2023 Fibrosis of lung ([facility]) 12/16/2023 ILD (interstitial lung disease) ([facility]) 12/16/2023 Nausea & vomiting 12/16/2023 Urinary tract infection 12/16/2023 Abnormal x-ray of femur 10/11/2023 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 Chronic right shoulder pain 09/22/2023 Rotator cuff arthropathy of right shoulder 09/22/2023 Traumatic tear of right rotator cuff 09/22/2023 Immunosuppressed status 08/10/2023 Osteopenia 08/10/2023 Scoliosis 08/10/2023 Ventral incisional hernia without obstruction or gangrene 08/10/2023 COPD (chronic obstructive pulmonary disease) ([facility]) 08/10/2023 Atherosclerosis of mohegan artery of both lower extremities with intermittent claudication 01/11/2022 Smoking 01/11/2022 Cigarette nicotine dependence with nicotine-induced disorder 01/11/2022 Varicose veins of bilateral lower extremities with other complications 01/11/2022 PAD (peripheral artery disease) 11/18/2021 Worse on the left leg Stage 3a chronic kidney disease (HCC) 10/28/2021 History of colon polyps 10/01/2021 Diverticulitis with history of resection and tubular adenoma [address] silva at [facility] 01/27/2021 On [facility] Vitamin B 12 deficiency 09/05/2015 Gastroesophageal reflux disease without esophagitis 09/05/2015 Urinary incontinence 02/11/2011 Hand arthritis 02/11/2011 Pain medication agreement completed 01/10/2011 Menopause IBS (irritable bowel syndrome) 12/11/2010 Diverticulitis 12/11/2010 Arthritis, rheumatoid (HCC) Generalized anxiety disorder Impression and plan More SOB Off and on chest pressure Recent CT reviewed No Hx CAD No prior cardiac testing EKG NSR HR 84 PAD --LE stents --Dr Santamaria --still smoking RA PAD CKD IBS Smoker COPD ILD Anxiety GERD No BP meds No lipid meds CT lung CA 08/2023 Coronary artery calcification: Moderate. Stress test and echo PTV F/U 3 mo Thank you for allowing me to participate in the care of your patients. Please call with any concerns or questions Marito Franz MD [facility] documented in this encounter Plan of Treatment Upcoming Encounters Date Type Department Care Team (Late st Contact Info) Description 01/20/2025 3:15 PM EST Office Visit [facility] Nephrology [address] [place] [address] Crystal Osborne MD [address] [place] [address] [address] [place] [address] 02/26/2025 10:40 AM EST Office Visit [facility] [place] [address] [place] [address] Marito Franz MD [address] [place] [address] 09/25/2025 10:00 AM EDT Appointment [facility] [address] [place] [address] Amaris Sommer APRN [address] [place] [address] 09/25/2025 11:00 AM EDT Office Visit [facility] [address] [place] [address] MayAmaris APRN [address] [place] [address] documented as of this encounter Goals Goal Patient Goal Type Associated Problems Recent Progress Patient-Stated? Author Eat better, exercise, reach an ideal body weight General No Vanna Rooney, RMA Stay Tobacco Free Lifestyle No Vanna Rooney, RMA documented as of this encounter Procedures Procedure Name Priority Date/Time Associated Diagnosis Comments POCT EKG Routine 10/30/2024 9:44 AM EDT Routine adult health maintenance documented in this encounter Results * EC ECHOCARDIOGRAM COMPLETE W DOPPLER AND COLOR FLOW MAPPING (12/16/2024 12:07 PM EST) LV DIASTOLIC PLAX 3.8 cm PYRAMIS AORTIC STENOSIS no PYRAMIS MITRAL REGURGITATION no PYRAMIS Ejection Fraction 55-60% PYRAMIS Anatomical Region Laterality Modality Electrocardiogra phy 12/16/2024 11:2 8 AM EST Impressions 12/16/2024 1:02 PM EST Conclusions * Left ventricular chamber dimension is normal. * Left ventricular function is normal with an estimated ejection fraction of 55-60%. * Left ventricular segmental wall motion is normal. * The left ventricular diastolic function is normal. * Right ventricular systolic function is normal. * Unable to estimate pulmonary arterial systolic pressure due to lack of tricuspid regurgitation jet. * The aortic root is borderline dilated. * The proximal ascending aorta is normal. * Normal inferior vena cava measuring 0.80 cm with >50% collapse upon inspiration consistent with normal right atrial pressure, 3 mmHg. * No significant valve disease. Narrative Procedure Note Geoff Dupree MD - 12/16/2024 IMPRESSION Conclusions * Left ventricular chamber dimension is normal. * Left ventricular function is normal with an estimated ejectionfraction of 55-60%. * Left ventricular segmental wall motion is normal. * The left ventricular diastolic function is normal. * Right ventricular systolic function is normal. * Unable to estimate pulmonary arterial systolic pressure due to lackof tricuspid regurgitation jet. * The aortic root is borderline dilated. * The proximal ascending aorta is normal. * Normal inferior vena cava measuring 0.80 cm with >50% collapse upon inspiration consistent with normal right atrial pressure, 3 mmHg. * No significant valve disease. us Marito Franz MD IMG ECHO ORDERABLES Final Result * ST STRESS TEST LEXISCAN (12/16/2024 11:20 AM EST) Anatomical Region Laterality Modality Cardiac Stress T esting 12/16/2024 9:47 AM EST Impressions 12/16/2024 10:38 AM EST [facility] Test Date: 2024-12-16 Pat Name: JANEE ELISE Department: DEPID Room: Gender: Female Unit Controller: Shasta Brown RN : 1960 Requested By: MARITO Heller Order Number: [id number] Reading MD: Andreas Segura MD Interpretive Statements Stress Test Lexiscan Ordering Diagnosis: SOB, ABN CT of heart, [place] Maint., Smoker, Chronic Bronchitis, ASCVD, HTN Resting HR: 88 Peak HR: 103 Resting B/P: 130/82 Peak B/P: 136/85 1. Lexiscan 0.4 mg was given IV push at 30 seconds into protocol. 2. Lexiscan injection was done without low level exercise. 3. Was the test changed from Exercise to Lexiscan? No. 4. Termination of test due to protocol completion. 5. Symptoms: Before test none. During test c/o chest tightness 7-8/10, easing throughout test, & resolved in recovery. 6. No Aminophylline given. 7. Nuclear Imaging reported separately. 8. Nursing Notes: Corrected BP in recovery. 9. Discharge Instructions Given: Yes by Shasta SANTANA Physician Interpretation Resting ECG: sinus old septal mi Arrhythmias: none Conclusion: No significant ST changes with lexiscan. Electronically Signed On 12-16-2024 10:38:11 EST by Andreas Segura MD Narrative Procedure Note Andreas Segura MD - 12/16/[address] [facility] Test Date: 2024-12-16 Pat Name: JANEE ELISE Department: DEPID Room: Gender: Female Unit Controller: Shasta Brown RN : 1960 Requested By: MARITO Heller Order Number: [id number] Reading MD: Andreas Segura MD Interpretive Statements Stress Test Lexiscan Ordering Diagnosis: SOB, ABN CT of heart, [place] Maint., Smoker,Chronic Bronchitis, ASCVD, HTN Resting HR: 88 Peak HR: 103 Resting B/P: 130/82 Peak B/P: 136/85 1. Lexiscan 0.4 mg was given IV push at 30 seconds into protocol. 2. Lexiscan injection was done without low level exercise. 3. Was the test changed from Exercise to Lexiscan? No. 4. Termination of test due to protocol completion. 5. Symptoms: Before test none. During test c/o chest tightness 7-8/10, easing throughout test, & resolved in recovery. 6. No Aminophylline given. 7. Nuclear Imaging reported separately. 8. Nursing Notes: Corrected BP in recovery. 9. Discharge Instructions Given: Yes by Shasta SANTANA PhysicianInterpretation Resting ECG: sinus old septal mi Arrhythmias: none Conclusion: No significant ST changes with lexiscan. Electronically Signed On 12-16-2024 10:38:11 EST by Andreas Segura MD us Marito Franz MD IMG STRESS ORDERABLES Rhea l Result * NM MYOCARDIAL PERFUSION SPECT STRESS AND REST (12/16/2024 10:49 AM EST) Anatomical Region Laterality Modality Nuclear Medicine 12/16/2024 8:44 AM EST Impressions 12/16/2024 4:55 PM EST Conclusions * Myocardial perfusion imaging is normal. * No evidence of myocardial ischemia or infarction. * Ejection fraction is normal. Narrative Procedure Note Marito Franz MD - 12/16/2024 IMPRESSION Conclusions * Myocardial perfusion imaging is normal. * No evidence of myocardial ischemia or infarction. * Ejection fraction is normal. Marito Franz MD IMG NM CARDIAC ORDERABLES Final Result * POCT EKG (10/30/2024 9:44 AM EDT) 10/30/2024 9:44 AM EDT Impressions [facility] - 10/30/2024 9:44 AM EDT NSR HR 84 Marito Franz MD POINT OF CARE CARDIOLOGY F inal Result [facility] OFFICE documented in this encounter Visit Diagnoses Diagnosis Routine adult health maintenance- Primary Routine general medical examination at a health care facility SOB (shortness of breath) Shortness of breath Smoker Tobacco use disorder Chronic bronchitis, unspecified chronic bronchitis type (HCC) Abnormal CT scan of heart Nonspecific (abnormal) findings on radiological and other examination of other intrathoracic organs ASCVD (arteriosclerotic cardiovascular disease) Unspecified cardiovascular disease Primary hypertension Unspecified essential hypertension Routine adult health maintenance Routine general medical examination at a health care facility SOB (shortness of breath) Shortness of breath Smoker Tobacco use disorder Chronic bronchitis, unspecified chronic bronchitis type (HCC) Abnormal CT scan of heart Nonspecific (abnormal) findings on radiological and other examination of other intrathoracic organs ASCVD (arteriosclerotic cardiovascular disease) Unspecified cardiovascular disease Primary hypertension Unspecified essential hypertension Routine adult health maintenance Routine general medical examination at a health care facility SOB (shortness of breath) Shortness of breath Smoker Tobacco use disorder Chronic bronchitis, unspecified chronic bronchitis type (HCC) Abnormal CT scan of heart Nonspecific (abnormal) findings on radiological and other examination of other intrathoracic organs ASCVD (arteriosclerotic cardiovascular disease) Unspecified cardiovascular disease Primary hypertension Unspecified essential hypertension Routine adult health maintenance Routine general medical examination at a health care facility SOB (shortness of breath) Shortness of breath Smoker Tobacco use disorder Chronic bronchitis, unspecified chronic bronchitis type (HCC) Abnormal CT scan of heart Nonspecific (abnormal) findings on radiological and other examination of other intrathoracic organs ASCVD (arteriosclerotic cardiovascular disease) Unspecified cardiovascular disease Primary hypertension Unspecified essential hypertension documented in this encounter Care Teams General Service Technician Relationship Specialty Start Date End Date Patsy Hair MD [address] [id number] PCP - General Family Medicine 07/19/13 Crystal Osborne MD [address] [address] Internal Medicine-Nephrology 12/06/23 documented as of this encounter
--- OUTSIDE RECORDS SUMMARY | 2024-10-31 12:50 | XMS_ITS | Encounter Summary ---
Author Organization Healthcare Address [address] [place] [address] Care Team Providers Care Diet Kitchen Cook Name Role Phone Patsy Hair MD Primary Care Provider [phone] Reason for Visit * Reason Comments Follow-up Encounter Details Date Type Department Care Team (Late st Contact Info) Description 10/31/2024 1:50 PM EDT Office Visit [facility] [address] [place] [address] Marta Willis L, PHOTO ENGRAVER [address] [place] [address] Seropositive rheumatoid arthritis of multiple sites (CMS/HCC) Social History Tobacco Use Types Packs/Day Years [...] Date Recorded Patient Health Questionnaire-2 Score 0 10/31/2024 PHQ-2A Answer Date Recorded Patient Health Questionnaire-2 Score 0 08/22/2022 Comments No Sex and Gender Information Value Date Recorded Sex Assigned at Female 05/12/2021 10:43 AM EDT Legal Sex Female 5:59 PM EDT Gender Identity Female 05/12/2021 10:43 AM EDT Sexual Orientation Straight 05/12/2021 10 :43 AM EDT documented as of this encounter Last Filed Vital Signs Vital Sign Reading Time Taken Comments Blood Pressure 139/86 10/31/2024 1:36 PM EDT Pulse 98 10/31/2024 1:36 PM EDT Temperature 36.6 C (97.8 F) 10/31/2024 1:36 PM EDT Respiratory Rate 16 10/31/2024 1:36 PM EDT Oxygen Saturation 94% 10/31/2024 1:36 PM EDT Inhaled Oxygen Concentration - - Weight 49.3 kg (108 lb 11 oz) 10/31/2024 1:36 PM EDT Height 142.2 cm (4' 8 ) 10/31/2024 1:36 PM EDT Body Mass Index 24.37 10/31/2024 1:36 PM EDT documented in this encounter Functional Status * Over the past 2 weeks, how often have you been bothered by any of the following problems? Question Answer Date of Assessment Author Little interest or pleasure in doing things Not at all 10/31/2024 1:51 PM EDT Rakel Willingham Feeling down, depressed, or hopeless Not at all 10/31/2024 1:51 PM EDT Rakel Willingham Patient Health Questionnaire -2 Score 0 10/31/2024 1:51 PM EDT Rakel Willingham documented as of this encounter Miscellaneous Notes * Progress Notes - Marta Willis, JERMAIN - 10/31/2024 1:50 PM EDT Vanessa Gonzalez is a 64 y.o. female Chief complaint: here for follow up of No primary diagnosis found. Subjective HPI Vanessa Gonzalez is a 64 y.o. female who presents today for follow up of No primary diagnosis found.. Past history: Diagnosed with RA and OA about 5-6 years ago She was treated with MTX She has not taken MTX for about 2 years Joint pain reported 'everywhere ' Pain in hands, back, feet AMS lasting 2 hours- up to all day. Joint swelling in bilateral hands, feet, and ankles She is taking ibuprofen daily for pain, with minimal benefit Endorsed dry mouth, rheumatological ROS otherwise WNL Hx of pain injections in back She has been prescribed percocet in the past by her PCP Med Hx: Methotrexate (remote use; restart 03/05- current; renal dosing 08/03) HCQ (08/03- current) Humira (12/03- current) Interim history: Last seen by me 02/05. Pt reports she had PNA 2-3 months ago. Her hands, back, and knees are bothersome. Pain is worse in the morning, activity makes it worse. Morning stiffness lasts 2 hours. She endorses swelling in her feet, ankles, and knees. This occurs in the evening. She continues on hydroxychloriquine, Methotrexate, and Adalimumab. She is past due for her eye exam, advised her to get one annually. Today (10/31/24): Pt reports she was hospitalized at [facility] for COPD exacerbation and PNA. Pt follows with From an RA standpoint she is doing well. She is currently on Adalimumab weekly, and hydroxychloriquine. She is over due for her eye exam. Advised pt to obtain this. She has been off of Methotrexate given appt compliance. Since being off of Methotrexate (roughly February) she has been doing well up until the last few weeks. Morning stiffness lasts several hours. She denies any color, temperature or swelling of the joints. Review of Systems Constitutional: Positive for fatigue. Negative for fever. HENT: Negative for mouth sores. Eyes: Negative for pain and redness. Respiratory: Negative for cough and shortness of breath. Cardiovascular: Negative for chest pain. Musculoskeletal: Positive for arthralgias and back pain. Negative for joint swelling, neck pain andneck stiffness. See HPI Skin: Negative for rash. The following portions of the chart were reviewed this encounter and updated as appropriate: Past Medical History: Diagnosis Date Abdominal pain 10/19/2023 Abnormal findings on diagnostic imaging of limbs 11/08/2023 Abnormal weight loss 06/09/2023 Abnormal x-ray of femur 10/11/2023 Activity, unspecified 04/24/2023 Acute bronchitis, unspecified 04/17/2019 Acute colitis 12/16/2023 JAMISON (acute kidney injury) ([facility]) 10/22/2023 Anemia Anemia, unspecified 08/28/2023 Anxiety Atherosclerosis of sioux artery of both lower extremities with bilateral ulceration 01/11/2022 Atherosclerosis of sioux artery of both lower extremities with intermittent claudication 01/11/2022 Basal cell carcinoma of skin, unspecified 08/14/2018 Benign neoplasm of ascending colon 06/07/2023 Cellulitis of right lower limb 10/02/2023 Chondrocostal junction syndrome (tietze) 10/02/2023 Chronic kidney disease Chronic patellofemoral pain of right knee 08/30/2023 Feels like shooting and knee is warm to the touch. It???s hard to get comfortable before going to sleep. Pain is worse when I get up and continues throughout the day Cigarette nicotine dependence with nicotine-induced disorder 01/11/2022 COPD (chronic obstructive pulmonary disease) ([facility]) Diverticulitis 12/11/2010 Diverticulosis of intestine, part unspecified, without perforation or abscess without bleeding 10/22/2023 Effusion, right shoulder 04/24/2023 Elevated white blood cell count, unspecified 10/21/2023 Fatigue 11/13/2022 Had bronchitis and a cough also pneumonia for almost 6 weeks. Starts to go away and comes back. Missed 6 humira injections and have taken 2 since. 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 Hypokalemia 08/28/2023 IBS (irritable bowel syndrome) 12/11/2010 ILD (interstitial lung disease) ([facility]) 12/16/2023 Immunodeficiency, unspecified ([facility]) 12/22/2022 Immunosuppressed status ([facility]) 08/10/2023 Iron deficiency anemia 12/18/2023 Localized edema 10/11/2023 Low back pain Migraine without aura, not intractable, without status migrainosus 10/31/2023 Nausea & vomiting 10/19/2023 Osteoarthritis Osteoarthritis of left hip 07/18/2018 Osteopenia 08/10/2023 Other displaced fracture of upper end of unspecified humerus, initial encounter for closed [id number]/11/2024 Other fall from one level to another, initial encounter 04/04/2023 Other nonspecific abnormal finding of lung field 06/23/2023 Other specified disorders of bone density and structure, left shoulder 04/04/2023 Pain in both upper arms 11/13/2022 Patient n with movement, lifting continuously Personal history of diseases of the blood and blood-forming organs and certain disorders involving the immune mechanism History of anemia Personal history of other diseases of the musculoskeletal system and connective tissue History of rheumatoid arthritis Personal history of other endocrine, nutritional and metabolic disease History of high cholesterol Personal history of other mental and behavioral disorders History of anxiety Pneumonia 06/24/2023 Rheumatoid arthritis ([facility]) S/P total hip arthroplasty 09/26/2018 Scoliosis 08/10/2023 Shortness of breath 10/19/2023 Spinal stenosis, site unspecified 03/22/2023 Strain of muscle(s) and tendon(s) of the rotator cuff of right shoulder, initial encounter 09/22/2023 Symptomatic menopausal or female climacteric states 02/28/2013 Tachycardia, unspecified 10/10/2023 Ulcer of extremity due to chronic venous insufficiency 01/11/2022 Unspecified fall, initial encounter 05/12/2023 Unspecified injury of right hip, initial encounter 10/10/2023 Unspecified injury of right shoulder and upper arm, initial encounter 08/09/2023 Unspecified protein-calorie malnutrition ([facility]) 09/22/2023 Urinary incontinence 02/11/2011 Urinary tract infection 12/16/2023 Varicose veins of bilateral lower extremities with other complications 01/11/2022 Ventral incisional hernia without obstruction or gangrene 06/23/2023 Vitamin B 12 deficiency 09/05/2015 Wrist pain 01/01/2020 Past Surgical History: Procedure Laterality Date CERVIX SURGERY N/A Cervical surgery from [facility] COLONOSCOPY N/A Colonoscopy from [facility] HIP ARTHROPLASTY JOINT REPLACEMENT TOTAL HIP ARTHROPLASTY N/A Hip replacement from [facility] VASCULAR SURGERY 2022 Social History Socioeconomic History Marital status: Spouse name: Not on file Number of children: Not on file Years of education: Not on file Highest education level: Not on file Occupational History Not on file Tobacco Use Smoking status: Every Day Current packs/day: 1.00 Average packs/day: 1 pack/day for 15.0 years (15.0 ttl pk-yrs) Types: Cigarettes Smokeless tobacco: Never Tobacco comments: Quit from time to time but always go back to smoking 1 oack a day- 01/18/24 Vaping Use Vaping status: Never Used Substance and Sexual Activity Alcohol use: Never Comment: Alcoholic Drinks/day: Occasional alcohol use Drug use: Never Comment: Drug use: No illicit drug use Sexual activity: Not Currently Partners: Male control/protection: Post-menopausal, Other Comment: Thermablation Other Topics Concern Not on file Social History Narrative Marital Status: Social Drivers of Health Financial Resource Strain: Not on file Food Insecurity: Not on file Transportation Needs: Not on file Physical Activity: Not on file Stress: Not on file Social Connections: Not on file Intimate Partner Violence: Low Risk (11/01/2020) Received from [facility] Intimate Partner Violence Insults You: Not on file Threatens You: Not on file Screams at You: Not on file Physically Hurt: Not on file Intimate Partner Violence Score: Not on file Housing Stability: Not on file Family History Problem Relation Name Age of Onset Arthritis Other Other cancer Other Heart Problem Other Hypertension Mother Alvina Khan Hearing loss Mother Alvina Khan Hypertension Father Vern Khan Cancer Father Vern Khan Fibromyalgia Sister Char Calix Heart disease Sister Char Calix No Known Problems Brother Diabetes Brother Tim Khan Other (neurological disorder) Brother Tim Khan Arthritis Maternal Grandmother Danay Lopez Arthritis Paternal Grandmother Izzy Khan Diabetes Paternal Grandmother Izzy Khan Kidney disease Paternal Grandmother Izzy Khan No Known Allergies Current Outpatient Medications Medication Sig Dispense Refill albuterol (Proventil) (2.5 MG/3ML) 0.083% nebulizer solution INHALE CONTENTS OF 1 VIAL (3 ML) VIA NEBULIZER EVERY 4 HOURS NEEDED FOR WHEEZING albuterol 108 (90 Base) MCG/ACT inhaler Inhale 2 puffs every 4 (four) hours if needed. alendronate (Fosamax) 70 MG tablet Anoro Ellipta 62.5-25 MCG/ACT aerosol powder atorvastatin (Lipitor) 40 MG tablet Take 1 tablet (40 mg) by mouth 1 (one) time each day. B-D 3CC LUER-SUSAN SYR 25GX5/8 25G X 5/8 3 ML misc USE directed ONCE monthly clopidogrel (Plavix) 75 MG tablet cyanocobalamin (Vitamin B-12) 1000 MCG/ML injection INJECT 1 ML INTRAMUSCULARLY ONCE MONTHLY cyclobenzaprine (Flexeril) 10 MG tablet Take 1 tablet (10 mg) by mouth 3 (three) times a day if needed for muscle spasms for up to 21 days. 32 tablet 0 diclofenac (Voltaren) 1 % topical gel APPLY 2 GRAMS TO AFFECTED AREA 2 TIMES A DAY 300 g 0 DULoxetine (Cymbalta) [address] capsule escitalopram (Lexapro) 20 MG tablet Take 1 tablet (20 mg) by mouth 1 (one) time each day. famotidine (Pepcid) 40 MG tablet FeroSul 325 (65 Fe) MG tablet Take 1 tablet by mouth daily. folic acid (Folvite) 1 MG tablet Take 1 tablet by mouth daily. 30 tablet 11 furosemide (Lasix) 40 MG tablet Take 1 tablet by mouth daily. gabapentin (Neurontin) 800 MG tablet hydroxychloroquine (Plaquenil) 200 MG tablet Take 1 tablet by mouth daily. 30 tablet 3 Iron, Ferrous Sulfate, 325 (65 Fe) MG tablet daily. levoFLOXacin (Levaquin) 500 MG tablet lidocaine (Lidoderm) 5 % patch Apply 1 patch topically 1 (one) time each day over 12 hours. Remove & discard patch within 12 hours or as directed by MD. 30 patch 1 methotrexate 2.5 MG tablet TAKE 6 TABLETS BYMOUTH ONCE WEEKLY 24 tablet 3 mirtazapine (Remeron) 15 MG tablet nicotine polacrilex (Nicorette) 4 MG gum 1 each. Nurtec 75 MG tablet dispersible omeprazole (PriLOSEC) [address] capsule ondansetron (Zofran) 4 MG tablet ondansetron ODT (Zofran-ODT) 4 MG disintegrating tablet potassium chloride CR (Klor-Con M20) 20 MEQ ER tablet predniSONE (Deltasone) 20 MG tablet Take 5 mg by mouth daily. predniSONE (Deltasone) 5 MG tablet Take 3 tablets for 5 days, then take 2 tablets for 5 days, then take 1 tablet for 5 days. 30 tablet 0 terbinafine (LamISIL) 250 MG tablet triamcinolone (Kenalog) 0.1 % ointment Vraylar 1.5 MG capsule Xarelto 2.5 MG tablet Adalimumab (Humira, 2 Pen,) 40 MG/0.8ML Auto-injector Kit Inject 1 each under the skin 1 time per week. 4 each 4 No current facility-administered medications for this visit. Objective Last visit labs: Appointment on 01/18/2024 Component Date Value Ref Range Status Direct Bilirubin, Plasma 01/18/2024 <0.2 <=0.3 mg/dL Final Alkaline Phosphatase, Plasma 01/18/2024 70 46 - 142 U/L Final Total Bilirubin, Plasma 01/18/2024 <0.2 (L) 0.2 - 1.1 mg/dL Final Albumin, Plasma 01/18/2024 4.3 3.5 - 5.2 g/dL Final Total Protein 01/18/2024 7.1 6.3 - 7.9 g/dL Final ALT, Plasma 01/18/2024 14 10 - 35 U/L Final AST, Plasma 01/18/2024 25 10 - 35 U/L Final Creatinine, Plasma 01/18/2024 1.78 (H) 0.60 - 1.10 mg/dL Final eGFRcr 01/18/2024 32.2 mL/min/1.73m*2 Final Reported eGFRcr in mL/min/1.73m2 is based the CKD-EPI 2020 equation that does not use a race coefficient. WBC Count 01/18/2024 7.15 3.70 - 10.30 10*3/uL Final RBC Count 01/18/2024 4.00 3.90 - 5.20 10*6/uL Final HGB 01/18/2024 11.3 11.2 - 15.7 g/dL Final HCT 01/18/2024 37.3 34.0 - 45.0 % Final Platelet Count 01/18/2024 306 155 - 369 10*3/uL Final MCV 01/18/2024 93 79 - 98 fL Final MCH 01/18/2024 28.3 26.0 - 32.0 pg Final MCHC 01/18/2024 30.3 (L) 30.7 - 35.5 g/dL Final RDW 01/18/2024 17.2 (H) 11.5 - 14.5 % Final MPV 01/18/2024 12.3 8.8 - 12.5 fL Final nRBC 01/18/2024 0.0 <=0.0 per 100 WBCs Final Differential Type 01/18/2024 Automated Final Neutrophils % 01/18/2024 51 % Final Lymphocytes % 01/18/2024 36 % Final Monocytes % 01/18/2024 10 % Final Eosinophils % 01/18/2024 3 % Final Basophils % 01/18/2024 0 % Final Immature Granulocytes % 01/18/2024 0 % Final Neutrophils Absolute 01/18/2024 3.60 1.60 - 6.10 10*3/uL Final Lymphocytes Absolute 01/18/2024 2.60 1.20 - 3.90 10*3/uL Final Monocytes Absolute 01/18/2024 0.71 0.30 - 0.90 10*3/uL Final Eosinophils Absolute 01/18/2024 0.19 0.00 - 0.50 10*3/uL Final Basophils Absolute 01/18/2024 0.03 0.00 - 0.10 10*3/uL Final Immature Granulocytes Absolute 01/18/2024 0.02 0.00 - 0.06 10*3/uL Final Vitals: 10/31/24 1336 BP: 139/86 Pulse: 98 Resp: 16 Temp: 36.6 ??C (97.8 ??F) SpO2: 94% Wgt: 106 lb RR: 16 T: 97.9 Physical Exam Vitals reviewed. Constitutional: General: She is not in acute distress. Pulmonary: Effort: Pulmonary effort is normal. Musculoskeletal: General: Deformity (chronic deformities consistent with long standing RA and OA) present. No swelling or tenderness. Normal range of motion. Cervical back: Normal range of motion. Comments: Digits and nails were normal. No evidence of synovitis and no joint effusions. Joints hada normal ROM and normal alignment. Muscle strength and tone normal all extremities. Skin: General: Skin is warm and dry. Findings: No rash. Neurological: Mental Status: She is alert and oriented to person, place, and time. Psychiatric: Mood and Affect: Mood normal. There is currently no information documented on the homunculus. Go to the Rheumatology activity and[facility]. Rapid 3 score: 2.5/30 CDAI: 0 Assessment/Plan Diagnosis Plan 1. Seropositive rheumatoid arthritis of multiple sites (CMS/HCC) methotrexate 2.5 MG tablet 1. Seropositive Rheumatoid Arthritis (RF 47; CCP 86 7; MATT (1:160; speckled): - Continue MTX 10 mg/week - Continue folic acid 1 mg/day - Continue HCQ 200 mg/day. - Continue weekly Humira 2. High risk medication use 3. manager regulatory use of immunosuppressant Labs from 09/06 WNL 3. Osteoarthritis multiple sites -most of her pain appears to be mechanical in nature -per pt she has been referred to pain clinic -new low back pain with sciatica, imaging shows degenerative changes 4. Right shoulder injury -continues to follow with ortho, pt reports she is trying to get PT scheduled 5. CKD Pt follows with [facility] nephrology. Reviewed note from 05/07. RTC in 4 months The patient was counseled about diagnostic results, instruction for management, risk factors reduction, prognosis, compliance with visits and treatment, risks and benefits of treatments options. Prior notes (by external physicians) and results were reviewed by me with independent interpretation of labs and imaging. My note will be sent to PCP and other consulting physicians. documented in this encounter Plan of Treatment Upcoming Encounters Date Type Department Care Team (Late st Contact Info) Description 03/20/2025 12:50 PM EST Office Visit [facility] [address] [place] [address] Marta Willis APRN [address] [place] [address] documented as of this encounter Visit Diagnoses Diagnosis Seropositive rheumatoid arthritis of multiple sites (CMS/[facility]) documented in this encounter Additional Health Concerns Assessment Noted Time A fall risk assessment has been complete d for the patient 10/31/2024 1:52 PM EDT A Body Mass Index follow-up plan has been documented for the patient 10/31/2024 2:40 PM EDT documented as of this encounter Care Teams Diet Kitchen Cook Relationship Specialty Start Date End Date Patsy Hair MD [address] [place] [address] PCP - General 06/26/20 documented as of this encounter
--- OUTSIDE RECORDS SUMMARY | 2024-12-16 07:59 | XMS_ITS | Encounter Summary ---
Author Organization [place] [address] Care Team Providers Care Metal Treater Name Role Phone Patsy Hair MD Primary Care Provider [phone] Crystal Osborne MD Unavailable [phone] Reason for Referral * Nuclear Medicine (Routine) - Authorized Specialty Diagnoses / Procedures Referred By Contac t Referred To Contact Radiology Diagnoses Routine adult health maintenance SOB (shortness of breath) Smoker Chronic bronchitis, unspecified chronic bronchitis type (HCC) Abnormal CT scan of heart ASCVD (arteriosclerotic cardiovascular disease) Primary hypertension Procedures NM MYOCARDIAL PERFUSION SPECT STRESS AND REST Tiago Franz MD [address] [place] [address] Phone: tel: fax: Referral ID Status Reason Start Date Expiration Date V isits Requested Visits Authorized [id number] Authorized 10/30/2024 10/30/2025 5 5 Reason for Visit * Nuclear Medicine (Routine) - Authorized Specialty Diagnoses / Procedures Referred By Contac t Referred To Contact Radiology Diagnoses Routine adult health maintenance SOB (shortness of breath) Smoker Chronic bronchitis, unspecified chronic bronchitis type (HCC) Abnormal CT scan of heart ASCVD (arteriosclerotic cardiovascular disease) Primary hypertension Procedures NM MYOCARDIAL PERFUSION SPECT STRESS AND REST Tiago Franz MD [address] [place] [address] Phone: tel: fax: Referral ID Status Reason Start Date Expiration Date V isits Requested Visits Authorized [id number] Authorized 10/30/2024 10/30/2025 5 5 Encounter Details Date Type Department Care Team (Latest Contact Info) Description 12/16/2024 7:59 AM EST Hospital Encounter [facility] [address] [place] [address] Tiago Franz MD [address] [place] [address] [place] [address] Routine adult health maintenance; SOB (shortness of breath); Smoker; Chronic bronchitis, unspecified chronic bronchitis type (HCC); Abnormal CT scan of heart; ASCVD (arteriosclerotic cardiovascular disease); Primary hypertension Discharge Disposition: Home or Self Care Social [...] 9:40 AM EST Winnie Miller RMA * Does this person have serious [...] encounter Medications at Time of Discharge albuterol (PROVENTIL HFA;VENTOLIN HFA) 90 mcg/actuation Inhl HFA Aerosol InhalerIndication s:Wheeze Inhale 2 Puffs into the lungs every 4 hours as needed. for wheezing 18 g 2 5 albuterol (PROVENTIL) 2.5 mg /3 mL (0.083 %) Inhl Solution for NebulizationIndic ations:Dyspnea, unspecified type Take 3 mL by nebulization every 4 hours as needed for Wheezing. 1620 mL 5 alendronate (FOSAMAX) 70 mg Oral Tablet Take 1 Tablet by mouth once a week. 12 Tablet 3 5 ANORO ELLIPTA 62.5-25 mcg/actuation Inhl Disk with DeviceIndications :COPD with acute exacerbation (HCC) Inhale 1 Puff into the lungs daily. 60 Each 2 5 atorvastatin (LIPITOR) 40 mg Oral Tablet Take 1 Tablet by mouth daily. 90 Tablet 3 5 Brompheniramine-P seudoeph-DM 2-30-10 mg/5 mL Oral Syrup Take 10 mL by mouth every 4 hours as needed. 240 mL 1 5 budesonide-glycop yr-formoterol (BREZTRI AEROSPHERE) 160-9-4.8 mcg/actuation Inhl HFA Aerosol InhalerIndication s:COPD with acute exacerbation (HCC) Inhale 2 Puffs into the lungs 2 times daily. 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 90 Capsule 3 5 clopidogreL (PLAVIX) 75 mg Oral Tablet Take 1 Tablet by mouth daily. 90 Tablet 3 5 clotrimazole (LOTRIMIN) 1 % Top Cream Apply topically 2 times daily. 24 g 2 cyanocobalamin 1,000 mcg/mL Inj SolutionIndicatio ns:Vitamin B 12 deficiency INJECT 1 ML INTRAMUSCULARLY ONCE MONTHLY 1 mL 5 diclofenac (VOLTAREN) 1 % Top Gel 4 doxepin (SINEQUAN) 10 mg Oral Capsule Take 1 Capsule by mouth nightly. 90 Capsule 3 5 doxycycline monohydrate (MONODOX) 100 mg Oral Capsule Take 100 mg by mouth 2 times daily. 5 DULoxetine (CYMBALTA) 60 mg Oral Capsule, Delayed Release(E.C.)Emmie cations:Generaliz ed anxiety disorder,Recurren t major depression resistant to treatment Take 2 Capsules by mouth daily. 200 Capsule 1 5 escitalopram oxalate (LEXAPRO) 20 mg Oral TabletIndications :Generalized anxiety disorder Take 1 Tablet by mouth daily. 90 Tablet 3 5 famotidine (PEPCID) 40 mg Oral TabletIndications :Generalized abdominal pain Take 1 Tablet by mouth every evening. 90 Tablet 3 5 ferrous sulfate 325 mg (65 mg iron) Oral Tablet Take 1 Tablet by mouth daily. 90 Tablet 3 4 folic acid (FOLVITE) 1 mg Oral Tablet Take 1 mg by mouth daily. fUROsemide (LASIX) 20 mg Oral TabletIndications :Peripheral edema TAKE 1 TABLET BY MOUTH ONCE A DAY NEEDED FOR SWELLING 90 Tablet 1 5 fUROsemide (LASIX) 40 mg Oral Tablet Take 40 mg by mouth daily. 5 gabapentin (NEURONTIN) 800 mg Oral TabletIndications :Rheumatoid arthritis, involving unspecified site, unspecified whether rheumatoid factor present (HCC),Vitamin B 12 deficiency,Gastro esophageal reflux disease without esophagitis,Immun ocompromised,Athe rosclerosis [place] artery of both lower extremities with intermittent claudication,PAD (peripheral artery disease),Stage 3b chronic kidney disease (HCC) TAKE 1 TABLET BY MOUTH EVERY NIGHT MAY take additional 1/2 TABLET EVERY MORNING AND EVERY afternoon NEEDED 60 Tablet 5 HUMIRA PEN 40 mg/0.8 mL SubQ Pen Injector KitIndications:Rh eumatoid arthritis, involving unspecified site, unspecified whether rheumatoid factor present ([facility]) 2 hydrOXYchloroQUIN E (PLAQUENIL) 200 mg Oral TabletIndications :Rheumatoid arthritis, involving unspecified site, unspecified whether rheumatoid factor present ([facility]) 2 lidocaine (LIDODERM) 5 % Top Adhesive Patch, Medicated Place 1 Patch onto the skin daily. 30 Patch 11 5 methotrexate 2.5 mg Oral Tablet Take 2.5 mg by mouth once a week. Take 6 tabs PO every week mirtazapine (REMERON) 15 mg Oral TabletIndications :Rheumatoid arthritis, involving unspecified site, unspecified whether rheumatoid factor present ([facility]),Unintended weight loss Take 1 Tablet by mouth nightly. 90 Tablet 3 5 mupirocin (BACTROBAN) 2 % Top OintmentIndicatio ns:Cellulitis of leg, left Apply topically 3 times daily. 15 g 2 nicotine (NICODERM CQ) 21 mg/24 hr TD Patch [address] 1 Patch onto the skin every 24 hours. 28 Patch 1 4 omeprazole (PRILOSEC) 40 mg Oral Capsule, Delayed Release(E.C.) TAKE 1 CAPSULE BY MOUTH ONCE A DAY 90 Capsule 3 5 potassium chloride (KLOR-CON M) 20 mEq Oral Tab Sust.Rel. Particle/CrystalI ndications:[place] lemia Take 1 Tablet by mouth daily. 90 Tablet 3 5 predniSONE (DELTASONE) 20 mg Oral TabletIndications :COPD with acute exacerbation ([facility]) TAKE 3 TABLETS BY MOUTH ONCE A DAY FOR 3 DAYS THEN DECREASE BY 1 TABLET EVERY 3 DAYS UNTIL GONE 18 Tablet 2 5 rimegepant (NURTEC ODT) 75 mg Oral Tablet, Rapid DissolveIndicatio ns:Migraine without aura and without status migrainosus, not intractable DISSOLVE 1 TABLET ON THE TONGUE EVERY 48 HOURS ONLY NEEDED FOR MIGRAINE 8 Tablet 6 5 rivaroxaban (XARELTO) 2.5 mg Oral Tablet Take 1 Tablet by mouth 2 times daily. 60 Tablet 5 5 Syringe with Needle, Disp, (BD LUER-SUSAN SYRINGE) 3 mL 25 x 5/8 Misc Syringe USE DIRECTED ONCE MONTHLY 1 Each 11 5 terbinafine HCL (LAMISIL) 250 mg Oral TabletIndications :Tinea pedis of both feet TAKE 1 TABLET BY MOUTH ONCE A DAY 30 Tablet 1 5 TRELEGY ELLIPTA 200-62.5-25 mcg Inhl Disk with Device Inhale 1 Puff into the lungs daily. 5 triamcinolone (KENALOG) 0.1 % Top OintmentIndicatio ns:Cracked skin APPLY TOPICALLY TO AFFECTED AREA 2 TIMES A DAY FOR 10 DAYS 80 g 2 documented as of this encounter Discharge Disposition Disposition Code Departure Means Destination Home or Self Care documented in this encounter Plan of Treatment Upcoming Encounters Date Type Department Care Team (Late st Contact Info) Description 01/20/2025 3:15 PM EST Office Visit [facility] Nephrology [address] [place] [address] Crystal Osborne MD [address] [facility] [address] [place] [address] 02/26/2025 10:40 AM EST Office Visit [facility] [place] [address] [place] [address] Tiago Franz MD [address] [facility] [place] [address] 09/25/2025 10:00 AM EDT Appointment [facility] [address] [facility] [address] [place] [address] Amaris Sommer APRN [address] [place] [address] [address] [place] [address] 09/25/2025 11:00 AM EDT Office Visit [facility] [address] [facility] [address] [place] [address] Amaris Sommer APRN [address] [place] [address] [place] [address] documented as of this encounter Goals Goal Patient Goal Type Associated Problems Recent Progress Patient-Stated? Author Eat better, exercise, reach an ideal body weight General No Rooney, Vanna Aceves, RMA Stay Tobacco Free Lifestyle No Rooney, Vanna Aceves, RMA documented as of this encounter Procedures Procedure Name Priority Date/Time Associated Diagnosis Comments NM MYOCARDIAL PERFUSION SPECT STRESS AND REST Routine 12/16/2024 10:49 AM EST Routine adult health maintenance SOB (shortness of breath) Smoker Chronic bronchitis, unspecified chronic bronchitis type (HCC) Abnormal CT scan of heart ASCVD (arteriosclerotic cardiovascular disease) Primary hypertension documented in this encounter Results * NM MYOCARDIAL PERFUSION SPECT STRESS AND REST (12/16/2024 10:49 AM EST) Anatomical Region Laterality Modality Nuclear Medicine 12/16/2024 8:44 AM EST Impressions 12/16/2024 4:55 PM EST Conclusions * Myocardial perfusion imaging is normal. * No evidence of myocardial ischemia or infarction. * Ejection fraction is normal. Narrative Procedure Note Tiago Franz MD - 12/16/2024 IMPRESSION Conclusions * Myocardial perfusion imaging is normal. * No evidence of myocardial ischemia or infarction. * Ejection fraction is normal. Tiago Franz MD [facility] NM CARDIAC ORDERABLES Final Result documented in this encounter Visit Diagnoses Diagnosis Routine adult health maintenance Routine general medical [...] Unspecified essential hypertension documented in this encounter Administered Medications Inactive Administered Medications - up to 1 most recent administrations Medication Order MAR Action Action Date Dose Rate Site sodium chloride 0.9% syringe Intravenous, ONCE PRN, 1 dose, Starting on Mon12/16/24 at 0831, Until Mon12/16/24 at 0821, Line Care, Flush peripheral lines every 12 hours, central lines every 8 hours, and after IV medication, Radiology Given 12/16/2024 8:21 AM EST 10 mL [id number] (MYOVIEW) injection 8-45 millicurie 8-45 millicurie, Intravenous, ONCE PRN, 1 dose, Starting on 12/16/24 at 0831, Until Mon12/16/24 at 1011, Radiography/Imaging, Radiology Procedure, Administration dose must be within 10% of the ordered dose for radiopharmaceutical medications., Radiology Given 12/16/2024 10:11 AM EST 33.2 millicuries [id number] (MYOVIEW) injection 8-45 millicurie 8-45 millicurie, Intravenous, ONCE PRN, 1 dose, Starting on 12/16/24 at 0831, Until Mon12/16/24 at 0821, Radiography/Imaging, Radiology Procedure, Administration dose must be within 10% of the ordered dose for radiopharmaceutical medications., Radiology Given 12/16/2024 8:21 AM EST 14.3 millicuries documented in this encounter Care Teams Metal Treater Relationship Specialty Start Date End Date Patsy Hair MD [address] [place] [address] PCP - General Family Medicine 07/19/13 Crystal Osborne MD [address] [facility] [address] [place] [address] Internal Medicine-Nephrology 12/06/23 documented as of this encounter
--- OUTSIDE RECORDS SUMMARY | 2024-12-16 08:00 | XMS_ITS | Encounter Summary ---
Author Organization [place] [address] Care Team Providers Care Director Imaging Name Role Phone Patsy Hair MD Primary Care Provider [phone] Crystal Osborne MD Unavailable [phone] Reason for Referral * Echo (Routine) - Closed Specialty Diagnoses / Procedures Referred By Contac t Referred To Contact Radiology Diagnoses Routine adult health maintenance SOB (shortness of breath) Smoker Chronic bronchitis, unspecified chronic bronchitis type (HCC) Abnormal CT scan of heart ASCVD (arteriosclerotic cardiovascular disease) Primary hypertension Procedures EC ECHOCARDIOGRAM COMPLETE W DOPPLER AND COLOR FLOW MAPPING Tiaog Franz MD [address] [place] [address] Phone: tel: fax: Referral ID Status Reason Start Date Expiration Date Visits Re quested Visits Authorized [id number] Closed 10/30/2024 10/30/2026 1 1 Reason for Visit * Echo (Routine) - Closed Specialty Diagnoses / Procedures Referred By Contac t Referred To Contact Radiology Diagnoses Routine adult health maintenance SOB (shortness of breath) Smoker Chronic bronchitis, unspecified chronic bronchitis type (HCC) Abnormal CT scan of heart ASCVD (arteriosclerotic cardiovascular disease) Primary hypertension Procedures EC ECHOCARDIOGRAM COMPLETE W DOPPLER AND COLOR FLOW MAPPING Tiago Franz MD [address] [place] [address] Phone: tel: fax: Referral ID Status Reason Start Date Expiration Date Visits Re quested Visits Authorized [id number] Closed 10/30/2024 10/30/2026 1 1 Encounter Details Date Type Department Care Team (Latest Contact Info) Description 12/16/2024 8:00 AM EST - 12/16/2024 8:28 AM EST Hospital Encounter [facility] [address] [place] [address] Tiago Franz MD [address] [place] [address] [place] [address] Routine adult health maintenance; SOB [...] Winnie Pinto RMA documented in this encounter Discharge Instructions * Discharge Instructions* Yusra Magallon, RDCS, RVT, RDMS - 12/16/2024 12:07 PM EST Images from the original note were not included. Outpatient Echo Exam: Discharge Instructions An echo (short for echocardiogram) is a type of ultrasound test that uses sound waves to create images. The echo evaluates the structure of your heart, how well it pumps, and the movement of blood through the heart chambers. Once the test has been read by a work and family life consultant, the doctor who ordered your test will provide results to you. Results will also be available in [employer] once the test is read. Technologists cannot give test results. Please direct questions to the ordering physician. To share your experience or give feedback: *Please call [phone]. Or: *Submit a CareGram to recognize the help desk supervisor (who performed your test) for a job well done. CareGrams are available on paper, and online here: [email or web address] Thank you for choosing [facility] for your healthcare needs!Echocardiogram What is an echo? A resting transthoracic ???echo,?? short for echocardiogram, is an ultrasound exam that uses soundwaves to capture images of your heart. Transthoracic means it is performed on your chest. Resting means it is done lying down, and not on a treadmill like a stress test. The length of the test can vary depending on each patient and the specifics of the doctor's order. Often, a standard resting echo may take about 30-45 minutes. You will lie down on your left side while the electroneurodiagnostic technologist moves a handheld transducer device over a water-based gel to take still images, video clips, and measurements from different angles on your chest. What does an echo evaluate? In your heart, there are four chambers that carry and pump the blood, and four valves that open andclose to keep the blood flowing forward. An echo will look at: Overall heart function. Size and shape of the heart chambers, and of the heart muscle. How well the heart muscle squeezes to pump the blood. Whether any valve is leaking backwards, and the severity of any leaks. Whether any valve is too thick, and how severely this affects its ability to open. Certain parts of the aorta, to assess for plaque and look for aneurysm (stretched out areas). The space around your heart, to check for excess fluid. What about results? A work and family life consultant will read the echo by looking at the still pictures and video clips. They will also evaluate the measurements, then sign off on a written report. The report will be available in [employer] as soon as it is read, usually within two business days. The physician who ordered the echo will also be notified once your echo results are available. They will be the one to follow up with you regarding results. What do I need to do to prepare? An echo does not require much preparation. Ultrasound is a safe and gentle method of testing. You do not need to remove metal objects, glasses, hearing aids, continuous glucose monitors, or other implants like spinal cord stimulators. Unless your physician tells you otherwise, you can eat and take y our medicines like normal before your resting transthoracic echo. (Other kinds of echo exams, like a treadmill stress echo, will likely have different requirements.) In most cases, you will undress from the waist up for an echo. Gowns are always available, as well as towels and sheets to keep you fully covered throughout the exam. Pants and shoes can stay on during the test. Your tech may apply mild pressure to the transducer device to hold it in place and obtain the best quality images, but overall, an echo is an easy, painless procedure - some patients are so relaxed that they even fall asleep. The test will be performed in a quiet, private exam room. Echo F.A.Q. Why did my tech have me lie down on my left side? The heart is in the middle of the chest but slightly to the left, and it angles to the left. As your body moves, your heart repositions slightly. Lying down and turning onto your side helps tilt the heart into view. Why did the tech have me hold my breath in or out? Lung tissue is full of air, and sometimes covers the heart or makes it look blurry on the screen. Abreath in or out can clear the way and bring the heart into focus. The exact amount in or out varies due to each patient's anatomy. Why does an echo take longer than some other types of tests? In order to record a moving, complex 3-D object like the heart on a 2-D screen, techs look from multiple ???windows?? and angles to see all sides of every important cardiac structure. Our echo techsfollow standardized protocols to acquire all necessary images and measurements. An echocardiogram is longer in duration than an electrocardiogram (also known as an EKG or ECG), because the EKG only records the heart's electrical activity over seconds or minutes. Can you see the blockages or stents in my arteries? The arteries that feed the heart are too small to see with ultrasound. Instead, an echo focuses on function and the main structures of the heart. This is why a physician might order additional testing, like a catheter angiogram or coronary CTA (Computed Tomography Angiography) scan, to assess for narrowing or blockages in the cardiac arteries. I've been told I have a murmur. Can you see the murmur on the echo? Not exactly. The murmur refers to an abnormal noise heard by a physician through a stethoscope. We can't record the murmur itself, but we can see what may be causing it. Murmurs are frequently causedby a stiff or leaky valve, or overly vigorous heart function. What do the red and the blue colors mean? You may see flashy shades of red and blue across the screen during your echo, which is the Color Doppler. This Color Doppler is like a Doppler weather map: the difference in colors shows which direction the blood is flowing, and roughly how fast. This helps demonstrate flow patterns, and helps techs take velocity (flow speed) measurements in the correct place. What is all that noise I'm hearing? Is that my pulse? Yes, that is a Doppler sample of your blood flow at certain levels in your heart. Evaluating the velocity (speed) of the blood flow helps to estimate pressures in the heart and lungs, as well as the severity of disease. What is an ejection fraction? Ejection fraction is the percentage of blood pumped out with each squeeze from the left ventricle (the heart chamber that pumps blood out to the body). It is one way to measure and grade your heart'spumping function. The ejection fraction is found by measuring the ventricle's volume right before, and then right after each squeeze. A normal ejection fraction is about 55-70%. Not all of the blood will be pumped out each time, so do not expect to reach 100%. My product safety technician used an imaging enhancer through an IV. Is that a contrast dye? Contrasts used in echo imaging are different from those used in other types of imaging. Tests like X-ray, CT scans, and MRI may require contrast dyes such as iodine-based, barium-sulfate based, and gadolinium. The image enhancer [facility] uses on echo exams is called Definity. It is a mixture of saline and lipid-coated gas that creates microbubbles to highlight the blood cells in the heart. These microbubbles are quickly breathed out of your system, do not go through the kidneys, and are very unlikely to cause any sensation or side effect. If my product safety technician used an imaging enhancer, does that mean something is wrong? The technical quality of a person's echo images is separate from the findings and outcome of the study. The clarity of images varies a lot based on a person's anatomy - everyone is built a little differently. Using Definity (the image enhancer) to enhance the images helps the work and family life consultant see all of your heart muscle. It also allows techs to take precise measurements of the heart chambers. Why are there multiple types of cardiac imaging? A physician may need additional testing to get a complete picture of your heart health. Each test shows a different aspect of the heart. Some tests are more invasive than others. Echocardiogram: A non-invasive ultrasound that evaluates the heart's overall size, shape, and physiologic function such as the muscle pumping the blood. Other examples: EKG (electrocardiogram), Nuclear Medicine Stress Test, Cardiac MRI, Coronary CTA, and Catheter Angiogram: These are examples of other cardiac studies which may show different aspects of the heart including electrical signal activity, changes in blood flow to the heart after exercise, details of certain structures, and the level of disease built up in the coronary arteries. What do our cardiologists want you to know? Don't be overwhelmed by the details or language in your echo report - those details are there for your physicians to plan your care, and your physicians are there to answer any questions you may have. There is no replacement for a healthy lifestyle including exercise, a nutritious diet, and avoidingsmoking. These choices make huge impacts on your cardiovascular health. If you have questions, please ask your physician! Cardiologists and other providers at [facility] and [facility] want to answer your questions. They want you to have the information you need to feel confident about your cardiovascular health and treatment. documented in this encounter Medications at Time [...] unspecified site, unspecified whether rheumatoid factor present ([facility]),Vitamin B 12 deficiency,Gastro esophageal reflux disease without esophagitis,Immun ocompromised,Athe rosclerosis of [place] artery of both lower extremities with intermittent claudication,PAD (peripheral artery disease),Stage 3b chronic kidney disease (HCC) TAKE 1 TABLET BY MOUTH EVERY NIGHT MAY take additional 1/2 TABLET EVERY MORNING AND EVERY afternoon NEEDED 60 Tablet 5 HUMIRA PEN 40 mg/0.8 mL SubQ Pen Injector KitIndications:Rh eumatoid arthritis, involving unspecified site, unspecified whether rheumatoid factor present ([facility]) 2 hydrOXYchloroQUIN E (PLAQUENIL) 200 mg Oral TabletIndications :Rheumatoid arthritis, involving unspecified site, unspecified whether rheumatoid factor present ([facility]) 2 lidocaine (LIDODERM) 5 % Top Adhesive Patch, Medicated Place 1 Patch onto the skin daily. 30 Patch 11 5 methotrexate 2.5 mg Oral Tablet Take 2.5 mg by mouth once a week. Take 6 tabs PO every week mirtazapine (REMERON) 15 mg Oral TabletIndications :Rheumatoid arthritis, involving unspecified site, unspecified whether rheumatoid factor present ([facility]),Unintended weight loss Take 1 Tablet by mouth [...] mg Oral TabletIndications :COPD with acute exacerbation ([facility]) TAKE 3 TABLETS BY MOUTH ONCE A [...] Syringe USE DIRECTED ONCE MONTHLY 1 Each 5 terbinafine HCL (LAMISIL) 250 mg Oral [...] Description 01/20/2025 3:15 PM EST Office Visit [facility] Nephrology [address] [place] [address] Crystal Osborne MD [address] [facility] [address] [facility] [address] [place] [address] 02/26/2025 10:40 AM EST Office Visit [facility] [address] [place] [address] Tiago Franz MD [address] [place] [address] 09/25/2025 10:00 AM EDT Appointment [facility] [address] [place] [address] Amaris Sommer APRN [address] [place] [address] 09/25/2025 11:00 AM EDT Office Visit [facility] [address] [place] [address] Amaris Sommer PERSONAL VEHICLE ADVISOR [address] [place] [address] documented as of this encounter Goals Goal Patient Goal Type Associated Problems Recent Progress Patient-Stated? Author Eat better, exercise, reach an ideal body weight General No Vanna Rooney, RMA Stay Tobacco Free Lifestyle No Vanna Rooney RMA documented as of this encounter Procedures Procedure Name Priority Date/Time Associated Diagnosis Comments EC ECHOCARDIOGRAM COMPLETE W DOPPLER AND COLOR FLOW MAPPING Routine 12/16/2024 12:07 PM EST Routine adult health maintenance SOB (shortness of breath) Smoker Chronic bronchitis, unspecified chronic bronchitis type (HCC) Abnormal CT scan of heart ASCVD (arteriosclerotic cardiovascular disease) Primary hypertension documented in this encounter Results * EC [...] 3 mmHg. * No significant valve disease. Tiago Franz MD IMG ECHO ORDERABLES Final Result documented in this encounter [...] hypertension documented in this encounter Care Teams Director Imaging Relationship Specialty Start Date End Date Patsy Hair MD [address] [place] [address] PCP - General Family Medicine 07/19/13 Crystal Osborne MD [address] [facility] [address] [place] [phone] Internal Medicine-Nephrology 12/06/23 documented as of this encounter
--- OUTSIDE RECORDS SUMMARY | 2024-12-16 08:29 | XMS_ITS | Encounter Summary ---
Author Organization [facility] [place] [place] [address] Care Team Providers Care Cuff Stitcher Name Role Phone Patsy Hair MD Primary Care Provider [phone] Crystal Osborne MD Unavailable [phone] Reason for Referral * Stress (Routine) - Pending Review Specialty Diagnoses / Procedures Referred By Boubacar brown Referred To Contact Radiology Diagnoses Routine adult health maintenance SOB (shortness of breath) Smoker Chronic bronchitis, unspecified chronic bronchitis type (HCC) Abnormal CT scan of heart ASCVD (arteriosclerotic cardiovascular disease) Primary hypertension Procedures ST STRESS TEST Marito Valle MD [address] [place] [address] Phone: tel: fax: Referral ID Status Reason Start Date Expiration Date V isits Requested Visits Authorized [id number] Pending Review 10/30/2024 10/30/2026 1 1 Reason for Visit * Stress (Routine) - Pending Review Specialty Diagnoses / Procedures Referred By Contgonsalo brown Referred To Contact Radiology Diagnoses Routine adult health maintenance SOB (shortness of breath) Smoker Chronic bronchitis, unspecified chronic bronchitis type (HCC) Abnormal CT scan of heart ASCVD (arteriosclerotic cardiovascular disease) Primary hypertension Procedures ST STRESS TEST Marito Valle MD [address] [place] [address] Phone: tel: fax: Referral ID Status Reason Start Date Expiration Date V isits Requested Visits Authorized [id number] Pending Review 10/30/2024 10/30/2026 1 1 Encounter Details Date Type Department Care Team (Latest Contact Info) Description 12/16/2024 8:29 AM EST - 12/16/2024 11:59 PM EST Hospital Encounter [facility] [address] [place] [address] Marito Franz MD [address] [place] [address] Routine adult health maintenance; SOB [...] reflux disease without esophagitis,Immun ocompromised,Athe rosclerosis of [place] artery of both lower extremities with intermittent claudication,PAD (peripheral artery disease),Stage 3b chronic kidney disease (HCC) TAKE 1 TABLET BY MOUTH EVERY NIGHT MAY take additional 1/2 TABLET EVERY MORNING AND EVERY afternoon NEEDED 60 Tablet 5 HUMIRA PEN 40 mg/0.8 mL SubQ Pen Injector KitIndications:Rh eumatoid arthritis, involving unspecified site, unspecified whether rheumatoid factor present ([facility]) 2 hydrOXYchloroQUIN E (PLAQUENIL) 200 mg Oral TabletIndications :Rheumatoid arthritis, involving unspecified site, unspecified whether rheumatoid factor present ([facility]) 2 lidocaine (LIDODERM) 5 % Top Adhesive Patch, Medicated Place 1 Patch onto the skin daily. 30 Patch 11 5 methotrexate 2.5 mg Oral Tablet Take 2.5 mg by mouth once a week. Take 6 tabs PO every week mirtazapine (REMERON) 15 mg Oral TabletIndications :Rheumatoid arthritis, involving unspecified site, unspecified whether rheumatoid factor present ([facility]),Unintended weight loss Take 1 Tablet by [...] mg Oral TabletIndications :COPD with acute exacerbation ([facility]) TAKE 3 TABLETS BY MOUTH ONCE A [...] or Self Care documented in this encounter Progress Notes * Shasta Alvares RN - 12/16/2024 9:30 AM EST Stress test procedure and medications explained to the patient. Patient verbalized understanding ofprocedure & medications and all questions answered. Patient education reinforced during and after procedure. documented in this encounter Plan of Treatment Upcoming Encounters Date Type Department Care Team (Late st Contact Info) Description 01/20/2025 3:15 PM EST Office Visit [facility] Nephrology [address] [place] [address] Crystal Osborne MD [address] [place] [address] [address] [place] [address] 02/26/2025 10:40 AM EST Office Visit [facility] [place] [address] [place] [address] Marito Franz MD [address] [place] [address] [place] [address] 09/25/2025 10:00 AM EDT Appointment [facility] [address] [facility] [address] [place] [id number] June, Amaris Camacho STENOTYPE OPERATOR [address] [place] [address] 09/25/2025 11:00 AM EDT Office Visit [facility] [address] [facility] [address] [place] [address] JuneAmaris STENOTYPE OPERATOR [address] [place], [place] [id number] documented as of this encounter Goals Goal Patient Goal Type Associated Problems Recent Progress Patient-Stated? Author Eat better, exercise, reach an ideal body weight General No Vanna Rooney, RMA Stay Tobacco Free Lifestyle No Vanna Rooney RMA documented as of this encounter Procedures Procedure Name Priority Date/Time Associated Diagnosis Comments ST STRESS TEST LEXISCAN Routine 12/16/2024 11:20 AM EST Routine adult health maintenance SOB (shortness of breath) Smoker Chronic bronchitis, unspecified chronic bronchitis type (HCC) Abnormal CT scan of heart ASCVD (arteriosclerotic cardiovascular disease) Primary hypertension documented in this encounter Results * ST STRESS TEST LEXISCAN (12/16/2024 11:20 AM EST) Anatomical Region Laterality Modality Cardiac Stress T esting 12/16/2024 9:47 AM EST Impressions 12/16/2024 10:[address] [facility] Test Date: 2024-12-16 Pat Name: JANEE ELISE Department: DEPID Room: Gender: Female Business Support Professional: Shasta Brown RN : 1960 Requested By: MARITO Heller Order Number: [id number] Sarwat MD: Andreas Segura MD Interpretive Statements Stress [...] Segura MD - 12/16/[address] [facility] Test Date: 2024-12-16 Pat Name: JANEE ELISE Department: DEPID Room: Gender: Female Business Support Professional: Shasta Brown RN : 1960 Requested By: MARITO Heller Order Number: [id number] Reading MD: Andreas Segura MD Interpretive Statements [...] 12-16-2024 10:38:11 EST by Andreas Segura MD Marito Franz MD IMG STRESS ORDERABLES Rhea l Result documented in this encounter Visit Diagnoses [...] MAR Action Action Date Dose Rate Site regadenoson (LEXISCAN) injection 0.4 mg 0.4 mg, Intravenous, ONCE, 1 dose, On Mon12/16/24 at 0945, Stress Meds, Dx: 1. Routine adult health maintenance 2. SOB (shortness of breath) 3. Smoker 4. Chronic bronchitis, unspecified chronic bronchitis type (HCC) 5. Abnormal CT scan of heart 6. ASCVD (arteriosclerotic cardiovascular disease) 7. Primary hypertensionIndications:Routine adult health maintenance,SOB (shortness of breath),Smoker,Chronic bronchitis, unspecified chronic bronchitis type (HCC),Abnormal CT scan of heart,ASCVD (arteriosclerotic cardiovascular disease),Primary hypertension Given 12/16/2024 10:09 AM EST 0.4 mg sodium chloride 0.9% syringe Intravenous, PRN, Starting on Mon12/16/24 at 0937, Until Mon12/16/24 at 1159, Line Care, Flush with 5-10 mL saline pre/post IVP, and 5 mL prior to IVPB or blood product administration., Stress Meds, Dx: 1. Routine adult health maintenance 2. SOB (shortness of breath) 3. Smoker 4. Chronic bronchitis, unspecified chronic bronchitis type (HCC) 5. Abnormal CT scan of heart 6. ASCVD (arteriosclerotic cardiovascular disease) 7. Primary hypertensionIndications:Routine adult health maintenance,SOB (shortness of breath),Smoker,Chronic bronchitis, unspecified chronic bronchitis type (HCC),Abnormal CT scan of heart,ASCVD (arteriosclerotic cardiovascular disease),Primary hypertension Given 12/16/2024 10:09 AM EST 10 mL documented in this encounter Orders Medications Ordered That Rodney ht Not Have Been Administered Count Last Ordered Date First Ordered Date aminophylline injection 125 mg 1 12/16/2024 nitroGLYCERIN (NITROSTAT) SL tablet 0.4 mg 1 12/16/2024 sodium chloride 0.9 % 250 mL IV bolus 1 04/2024 sodium chloride 0.9% IV line flush 20-50 mL 1 12/16/2024 documented in this encounter Care Teams Cuff Stitcher Relationship Specialty Start Date End Date Patsy Hair MD [address] [place] [id number] PCP - General Family Medicine 07/19/13 Crystal Osborne MD [address] [place] [phone] Internal Medicine-Nephrology 12/06/23 documented as of this encounter
--- OUTSIDE RECORDS SUMMARY | 2024-12-19 10:42 | XMS_ITS | Encounter Summary ---
Author Organization [place] [address] Care Team Providers Care Pit Crew Support Worker Name Role Phone Patsy Hair MD Primary Care Provider [phone] Crystal Osborne MD Unavailable [phone] Reason for Visit * Reason Comments Medication Refill Encounter Details Date Type Department Care Team (Late st Contact Info) Description 10/20/2024 Refill [facility] 100 [place] [id number] Patsy Hair MD 100 [place], [place] [id number] Medication Refill Social History Tobacco Use Types [...] Description 01/20/2025 3:15 PM EST Office Visit [facility] Nephrology [address] [place] [address] Crystal Osborne MD [address] [place] [address] [place] [address] 02/26/2025 10:40 AM EST Office Visit [facility] [address] [place] [address] Tiago Franz MD [address] [place] [address] 09/25/2025 10:00 AM EDT Appointment [facility] [address] [facility] [address] [place] [address] MayAmaris JAVA J[address]EE LEAD [address] [facility] [address] [place] [address] 09/25/2025 11:00 AM EDT Office Visit [facility] [address] [facility] [address] [place] [address] Amaris Sommer APRN [address] [facility] [address] [place], [place] [id number] documented as of this encounter Goals Goal [...] 1 TABLET BY MOUTH ONCE A DAY 07/24/2024 10/21/2024 documented as of this encounter Care Teams Pit Crew Support Worker Relationship Specialty Start Date End Date Patsy Hair MD [address] [place], [place] [id number] PCP - General Family Medicine 07/19/13 Crystal Osborne MD [address] [facility] [address] [place] [address] Internal Medicine-Nephrology 12/06/23 documented as of this encounter
--- OUTSIDE RECORDS SUMMARY | 2024-12-19 10:42 | XMS_ITS | Encounter Summary ---
Author Organization [place] [address] Care Team Providers Care Exchange Underwriting Consultant Name Role Phone Patsy Hair MD Primary Care Provider [phone] Crystal Osborne MD Unavailable [phone] Reason for Visit * Reason Onset Date Comments Relaying Information 11/06/2024 90 day supp ly needed for future refills Encounter Details Date Type Department Care Team (Late st Contact Info) Description 11/06/2024 Telephone [facility] 100 [place] [address] Patsy Hair MD [address] [place] [id number] Relaying Information (90 day supply needed for [...] Description 01/20/2025 3:15 PM EST Office Visit [facility] Nephrology [address] [place] [address] Crystal Osborne MD [address] [facility] [address] [place] [address] 02/26/2025 10:40 AM EST Office Visit [facility] [place] [address] [place] [address] Tiago Franz MD [address] [place] [address] 09/25/2025 10:00 AM EDT Appointment [facility] 20 [facility] [address] [place] [address] Amaris Sommer [address] [place] [address] 09/25/2025 11:00 AM EDT Office Visit [facility] 20 [facility] [address] [place] [address] [address] [place], [place] [id number] documented as of this encounter Goals Goal Patient Goal Type Associated Problems Recent Progress Patient-Stated? Author Eat better, exercise, reach an ideal body weight General No Vanna Rooney RMA Stay Tobacco Free Lifestyle No Vanna Rooney RMA documented as of this encounter Visit Diagnoses Not on filedocumented in this encounter Care Teams Exchange Underwriting Consultant Relationship Specialty Start Date End Date Patsy Hair MD [address] [place] [phone] PCP - General Family Medicine 07/19/13 Crystal Osborne MD [address] [facility] [address] [place] [address] Internal Medicine-Nephrology 12/06/23 documented as of this encounter
--- OUTSIDE RECORDS SUMMARY | 2024-12-19 10:42 | XMS_ITS | Encounter Summary ---
Author Organization [facility] [place] [address] Care Team Providers Care Brushing Operator Name Role Phone Patsy Hair MD Primary Care Provider [phone] Crystal Osborne MD Unavailable [phone] Encounter Details Date Type Department Care Team [...] Entry Date Author No 04/06/2024 9:40 AM iWnnie Pinto RMA documented in this encounter Plan of Treatment Upcoming Encounters Date Type Department Care Team (Late st Contact Info) Description 01/20/2025 3:15 PM EST Office Visit [facility] Nephrology [address] [place] [address] Crystal Osborne MD 0 [facility] [address] [place] [address] 02/26/2025 10:40 AM EST Office Visit [facility] [address] [place] [address] Tiago Franz MD [address] [place] [address] 09/25/2025 10:00 AM EDT Appointment [facility] [address] [place] [address] [address] [place] [address] JuneAmaris APRN [address] [place] [address] [address] [place] [address] 09/25/2025 11:00 AM EDT Office Visit [facility] 20 [facility] [address] [place] [address] Amaris Sommer APRN [address] [place] [address] [address] [place] [address] documented as of this encounter Goals Goal Patient Goal Type Associated Problems Recent Progress Patient-Stated? Author Eat better, exercise, reach an ideal body weight General No Vanna Rooney RMA Stay Tobacco Free Lifestyle No Vanna Rooney RMA documented as of this encounter Visit Diagnoses Not on filedocumented in this encounter Care Teams Brushing Operator Relationship Specialty Start Date End Date Patsy Hair MD [address] [place] [id number] PCP - General Family Medicine 07/19/13 Crystal Osborne MD [address] [address] Internal Medicine-Nephrology 12/06/23 documented as of this encounter
--- OUTSIDE RECORDS SUMMARY | 2024-12-19 10:42 | XMS_ITS | Clinical Summary ---
Author Organization [facility] Address [address] [place] [address] Care Team Providers Care Skein Winding Operator Name Role Phone Patsy Hair MD Primary Care Provider [phone] Allergies No known active allergies Medications triamcinolone (Kenalog) 0.1 % ointment 02/14/19 21 Active potassium chloride CR (Klor-Con M20) 20 MEQ ER tablet 06/02/19 19 Active ondansetron (Zofran) 4 MG tablet 02/14/19 21 Active DULoxetine (Cymbalta) [address] capsule 10/29/19 20 Active Nurtec 75 MG tablet dispersible 07/10/19 21 Active albuterol 108 (90 Base) MCG/ACT inhaler Inhale 2 puffs every 4 (four) hours if needed. 10/30/19 21 Active escitalopram (Lexapro) 20 MG tablet Take 1 tablet (20 mg) by mouth 1 (one) time each day. 10/09/19 21 Active famotidine (Pepcid) 40 MG tablet 01/05/20 22 Active alendronate (Fosamax) 70 MG tablet 04/08/19 23 Active clopidogrel (Plavix) 75 MG tablet 04/15/19 23 Active gabapentin (Neurontin) 800 MG tablet 04/15/19 23 Active Xarelto 2.5 MG tablet 04/15/19 23 Active Anoro Ellipta 62.5-25 MCG/ACT aerosol powder 04/04/19 23 Active omeprazole (PriLOSEC) [address] capsule 07/14/19 23 Active terbinafine (LamISIL) 250 MG tablet 08/02/19 23 Active predniSONE (Deltasone) 5 MG tablet Take 3 tablets for 5 days, then take 2 tablets for 5 days, then take 1 tablet for 5 days. 30 tablet 12/09/19 23 Active atorvastatin (Lipitor) 40 MG tablet Take 1 tablet (40 mg) by mouth 1 (one) time each day. 12/09/19 23 Active levoFLOXacin (Levaquin) 500 MG tablet 01/26/20 23 Active cyclobenzaprine (Flexeril) 10 MG tablet Take 1 tablet (10 mg) by mouth 3 (three) times a day if needed for muscle spasms for up to 21 days. 32 tablet 08/22/19 24 Active diclofenac (Voltaren) 1 % topical gelIndications:Ch ronic right shoulder pain APPLY 2 GRAMS TO AFFECTED AREA 2 TIMES A DAY 300 g 10/19/19 24 Active lidocaine (Lidoderm) 5 % patchIndications: Left shoulder pain, unspecified chronicity,Trauma tic tear of right rotator cuff, unspecified tear extent, initial encounter Apply 1 patch topically 1 (one) time each day over 12 hours. Remove & discard patch within 12 hours or as directed by MD. 30 patch 1 01/30/20 24 Active Iron, Ferrous Sulfate, 325 (65 Fe) MG tablet daily. 10/05/19 25 Active Vraylar 1.5 MG capsule 10/01/19 25 Active cyanocobalamin (Vitamin B-12) 1000 MCG/ML injection INJECT 1 ML INTRAMUSCULARLY ONCE MONTHLY 09/03/19 25 Active FeroSul 325 (65 Fe) MG tablet Take 1 tablet by mouth daily. 09/03/19 25 Active mirtazapine (Remeron) 15 MG tablet 10/01/19 25 Active nicotine polacrilex (Nicorette) 4 MG gum 1 each. 10/08/19 25 Active ondansetron ODT (Zofran-ODT) 4 MG disintegrating tablet 03/29/19 25 Active B-D 3CC LUER-SUSAN SYR 25GX5/8 25G X 5/8 3 ML misc USE directed ONCE monthly 09/03/19 25 Active albuterol (Proventil) (2.5 MG/3ML) 0.083% nebulizer solution INHALE CONTENTS OF 1 VIAL (3 ML) VIA NEBULIZER EVERY 4 HOURS NEEDED FOR WHEEZING 07/03/19 Active furosemide (Lasix) 40 MG tablet Take 1 tablet by mouth daily. 10/08/19 Active predniSONE (Deltasone) 20 MG tablet Take 5 mg by mouth daily. 10/08/19 Active folic acid (Folvite) 1 MG tablet Take 1 tablet by mouth daily. 30 tablet 11 11/01/19 Active hydroxychloroquin e (Plaquenil) 200 MG tablet Take 1 tablet by mouth daily. 30 tablet 11/01/19 25 Active methotrexate 2.5 MG tabletIndications :Seropositive rheumatoid arthritis of multiple sites (CMS/HCC) TAKE 6 TABLETS BYMOUTH ONCE WEEKLY 24 tablet 11/01/19 25 Active Adalimumab (Humira, 2 Pen,) 40 MG/0.8ML Auto-injector KitIndications:Se ropositive rheumatoid arthritis of multiple sites (CMS/HCC) Inject 1 each under the skin 1 time per week. 4 each 4 11/01/19 Active Active Problems Problem Noted Date Diagnosed [...] 10/19/2023 01/18/2024 Shortness of breath 10/19/2023 01/18/20 24 Nausea & vomiting 10/19/2023 01/18/2024 Abnormal x-ray of femur 10/11/2023 120 06/2023 Localized edema 10/11/2023 01/18/2024 Tachycardia, unspecified 10/10/202306/2023 [...] throughout the day Anemia, unspecified 08/28/2023 01/18/20 24 Hypokalemia 08/28/2023 01/18/2024 Immunosuppressed status 08/10/2023 1206/2023 Osteopenia 08/10/2023 01/18/2024 Scoliosis 08/10/2023 01/18/2024 Unspecified injury of right shoulder and upper arm, initial encounter 08/09/2023 01/18/2024 Pneumonia 06/24/2023 01/18/2024 Other nonspecific abnormal f inding of lung field 06/23/2023 01/18/2024 Ventral incisional hernia wi thout obstruction or gangrene 06/23/2023 01/18/2024 Abnormal weight loss 06/09/2023 12/05/2 024 Benign neoplasm of ascending colon 06/07/2023 [...] n with movement, lifting continuously Atherosclerosis of [place] of both lower extremities with intermittent claudication 01/11/2022 01/18/2024 Cigarette nicotine dependenc e with nicotine-induced disorder 01/11/2022 01/18/2024 Atherosclerosis of [place] of both lower extremities with bilateral ulceration 01/11/2022 01/18/2024 Ulcer of extremity due to ch ronic venous insufficiency 01/11/2022 01/18/2024 Varicose veins of bilateral lower extremities with other complications 01/11/2022 01/18/2024 History of colon polyps 10/01/2021 1206/2023 Overview (01/18/2024): Diverticulitis with history of resection and tubular adenoma [address] silva at [facility] Wrist pain 01/01/2020 01/18/2024 Acute bronchitis, unspecified 04/17/2019 01/18/2024 S/P total hip arthroplasty 09/26/2018 1 03/20/2023 Basal cell carcinoma of skin, unspecified 08/14/2018 01/18/2024 Osteoarthritis of left hip 07/18/2018 1 03/20/2023 Gastroesophageal reflux dise ase without esophagitis 09/05/2015 01/18/2024 Vitamin B 12 deficiency 09/05/2015 12/0 06/2023 Symptomatic menopausal or fe male climacteric states 02/28/2013 01/18/2024 Urinary incontinence 02/11/2011 024 Diverticulitis 12/11/2010 01/18/2024 IBS (irritable bowel syndrome) 12/11/2010 01/18/2024 Encounters Date Type Department Care Team Description 10/31/2024 1:50 PM EDT Office Visit [facility] [address] [place] [address] Marta Willis APRN Seropositive rheumatoid arthritis of multiple sites ([facility]) 10/31/2024 Orders Only [facility] Medicine [facility]ties [address] [place] [address] William Solitario, PharmD Seropositive rheumatoid arthritis of multiple sites ([facility]) (Primary Dx) 10/31/2024 Travel 10/29/2024 Travel 09/30/2024 Refill [facility] Medicine [facility] [address] [place] [address] Marta Willis APRN from Last 3 Months Immunizations Immunization Administration Dates Next Due Influenza Vaccine, Quadrivalent, Adjuvanted 11/14,11/24/2009 Influenza, recombinant, quad rivalent, injectable, preservative free 11/26/2021 Influenza, seasonal, injectable, preservative fr ee 12/16/2023 Moderna COVID-19 Vaccine (Investigator Fraud) 12+ years ,10/08/2020 Pneumococcal 20-ventura Conj Vaccine 07/09/2021 Tdap 10/01/2021,09/21/2011 Family History Medical History Relation Name Comments No Known Problems Brother 1 Diabetes Brother 2 Tim [place] neurological disorder Brother 2 Tim [place] Cancer Father Vern Blackmoncaid Hypertension Father Vern Blackmoncaid Arthritis Maternal Grandmother Danay Lopez Hearing loss Mother Alvina Blackmoncaid Hypertension Mother Alvina Blackmoncaid Arthritis Other 1 Other cancer Other 2 Heart Problem Other 3 Arthritis Paternal Grandmother Izzy Blackmoncaid Diabetes Paternal Grandmother Izzy Blackmoncaid Kidney disease Paternal Grandmother Izzy Blackmoncaid Fibromyalgia Sister Char Calix Heart disease Sister Char Jaymaría Calix Relation Name Status Comments Brother 1 Brother 2 Tim Erin Father Vern Blackmoncaid Maternal Grandmother Danay Lopez Mother Alvina Blackmoncaid Other 1 Other 2 Other 3 Paternal Grandmother Izzy Blackmoncaid Sister Char Jay Calix Social History Tobacco Use Types Packs/Day [...] Visit [place] [facility] [address] [place] [address] Marta Willis, AVAYA ENGINEER [address] [place] [address] Health Maintenance Due Date Last Done Comments [facility]-/Child/Adol SDOH Screenings 1962 [facility]- SDOH Screenings 1980 [facility]-Adult SDOH Screenings 1980 [facility]-Zoster Vaccines (1 of 2) 1981 [facility]-HPV/Cotest 1992 CT Colonography 10/04/2007 Colonoscopy 10/04/2007 FIT 10/04/2007 FOBT 10/04/2007 Sigmoidoscopy 10/04/2007 [id number] Vaccine (3 - Moderna risk series) 12/08/2020 11/10/2020, 10/08/2020 [facility]-RSV Vaccine: 60+ Years or (1 - Risk 60-74 years 1-dose series) 2022 [facility]-Bone Density Scan 11/24/2022 11/24/2021 FIT-DNA 05/19/2023 05/18/2020 [facility]-Colorectal Cancer Screening 05/19/2023 [...] 12/31/2019 12:05 PM EST us Yarelis Hutchison AVAYA ENGINEER, DNP LAB BLOOD ORDERABLE S Final Result [facility] * Hepatitis C Antibody (12/31/2019 10:47 AM EST) Hepatitis C Antibody NEGATIVE Reference Range: Negative [facility] 12/31/2019 10:4 7 AM EST 12/31/2019 12:05 PM EST us Yarelis Hutchison AVAYA ENGINEER, DNP LAB BLOOD ORDERABLE S Final Result [facility] from Last 3 Months or Most Recently Relevant to Health Maintenance Insurance [facility] MEDICARE Care Teams Skein Winding Operator Relationship Specialty Start Date End Date Patsy Hair MD [address] [place] [address] PCP - General 06/26/20
--- OUTSIDE RECORDS SUMMARY | 2024-12-19 10:45 | XMS_ITS | Encounter Summary ---
Author Organization [place] [address] Care Team Providers Care Lopper Name Role Phone Patsy Hair MD Primary Care Provider [phone] Crystal Osborne MD Unavailable [phone] Reason for Visit * Reason Onset Date Comments Results 12/19/2024 Echo, stress ruperto t Encounter Details Date Type Department Care Team (Late Contact Info) Description 12/19/2024 Telephone [facility] [place] [address] Tiago Franz MD [address] [place] [address] Results (Echo, stress test) Social History Tobacco Use Types Packs/Day Years [...] encounter Miscellaneous Notes * Telephone Encounter - Patsy Suarez - 12/19/2024 8:19 AM EST Patient called she is waiting to hear back on the testing she had done on 12/16/24 she is wanting these results so she can hopefully be cleared for hernia surgery. Echo & Stress Test. Please return call [facility] [phone] documented in this encounter Plan of Treatment Upcoming Encounters Date Type Department Care Team (Late st Contact Info) Description 01/20/2025 3:15 PM EST Office Visit [facility] Nephrology [address] [place] [address] Crystal Osborne MD [address]30 [facility] [address] [place] [address] 02/26/2025 10:40 AM EST Office Visit [facility] [place] [address] [place] [address] Tiago Franz MD [address] [facility] [place] [address] 09/25/2025 10:00 AM EDT Appointment [facility] 20 [facility] [address] [place] [address] [place] [address] 09/25/2025 11:00 AM EDT Office Visit [facility] 20 [facility] [address] [place] [address] [place], [place] [id number] documented as of this encounter Goals Goal Patient Goal Type Associated Problems Recent Progress Patient-Stated? Author Eat better, exercise, reach an ideal body weight General No Vanna Rooney, RMA Stay Tobacco Free Lifestyle No Vanna Rooney, RMA documented as of this encounter Visit Diagnoses Not on filedocumented in this encounter Care Teams Lopper Relationship Specialty Start Date End Date Patsy Hair MD [address] [place], [place] [phone] PCP - General Family Medicine 07/19/13 Crystal Osborne MD [address] [facility] [address] [place] [address] Internal Medicine-Nephrology 12/06/23 documented as of this encounter
--- OUTSIDE RECORDS SUMMARY | 2024-12-19 10:45 | XMS_ITS | Patient Health Record ---
Author Organization [facility] Address [address] [place] [address] Care Team Providers Care Child Care Specialist Name Role Phone Greg Elena Primary Care Provider Reason For Referral No Information Medications Medication SIG (Take, Route, Frequency, Duration) Notes Start Date End Date Status Methotrexate 2.5 mg 4 oral once a week oral once a week *Pick strength-form from [facility] for eRX* 09/07/2007 Active Cymbalta 60 mg 1 (one) tablet(s) orally once a day orally once a day; Duration: (none) *[facility] for [facility]* 07/20/2007 Active KlonoPIN 0.5 mg 1 (one) tablet oral once a day (at bedtime) oral once a day (at bedtime) *[facility] strength[facility]form from [facility] for eRX* 07/20/2007 Active Vicodin 500 mg-5 mg 1 (one) tab(s) orally once a day orally once a day *Reorder from [facility] for eRx and Interaction Alerts* 12/05/2007 Active CeleBREX 200 mg 1 (one) tablet orally once a day orally once a day; Duration: 30 (thirty) Day(s) *[facility] strength[facility]form from [facility] for [facility]RX* 07/20/2007 Active Tylenol 1 (one) tablet orally as directed *[facility]form [facility] for [facility]* 07/20/2007 Active Plan Of Treatment No Information
--- OUTSIDE RECORDS SUMMARY | 2024-12-19 10:45 | XMS_ITS | Clinical Summary ---
Author Organization [facility] Address [address] [place] [address] Care Team Providers Care Clinic Physician Director Name Role Phone Patsy Hair MD Primary Care Provider [phone] Source Comments This information has been disclosed [...] therelease of HIV test results or diagnoses. [id number] Allergies No known active allergies Medications [...] Plan of Treatment Not on file Insurance [place] [employer] Care Teams Clinic Physician Director Relationship Specialty Start Date End Date Patsy Hair MD PCP - General Family Medicine 12/10/18
--- OUTSIDE RECORDS SUMMARY | 2024-12-19 10:45 | XMS_ITS | Encounter Summary ---
Author Organization [facility] Address [address] [place] [address] Care Team Providers Care Child Guidance Counselor Name Role Phone Patsy Hair MD Primary Care Provider [phone] Encounter Details Date Type Department Care Team [...] Rakel Willingham documented as of this encounter Plan of Treatment Upcoming Encounters Date Type Department Care Team (Late st Contact Info) Description 03/20/2025 12:50 PM EST Office Visit [place] [facility] [address] [place] [address] Marta Willis L, SYRUP SHED SUPERVISOR [address] [place] [address] documented as of this encounter Visit Diagnoses Not on filedocumented in this encounter Additional Health Concerns Assessment Noted Time A fall risk assessment has been complete d for the patient 10/31/2024 1:52 PM EDT A Body Mass Index follow-up plan has been documented for the patient 10/31/2024 2:40 PM EDT documented as of this encounter Care Teams Child Guidance Counselor Relationship Specialty Start Date End Date Patsy Hair MD [address] [place] [address] PCP - General 06/26/20 documented as of this encounter
--- OUTSIDE RECORDS SUMMARY | 2024-12-19 10:45 | XMS_ITS | Encounter Summary ---
Author Organization [facility] Address [address] [place] [address] Care Team Providers Care Canine Deputy Name Role Phone Patsy Hair MD Primary Care Provider [phone] Reason for Referral * Medications - Authorized Specialty Diagnoses / Procedures Referred By Contac t Referred To Contact Diagnoses Seropositive rheumatoid arthritis of multiple sites ([facility]) Marta Willis APRN [address] [place] [address] Phone: tel: fax: Referral ID Status Reason Start Date Expiration Date V isits Requested Visits Authorized [id number] Authorized 07/29/2024 02/12/2025 1 1 Encounter Details Date Type Department Care Team (Late st Contact Info) Description 10/31/2024 Orders Only [facility] [address] [place] [address] William Solitario, [place] [address] Seropositive rheumatoid arthritis of multiple sites ([facility]) (Primary Dx) Social History Tobacco Use Types [...] Description 03/20/2025 12:50 PM EST Office Visit [facility] [address] [place] [address] Marta Willis, CONVEYOR TENDER CONCRETE M[employer]ING PLANT [address] [place] [address] documented as of this encounter Visit Diagnoses [...] documented as of this encounter Care Teams Canine Deputy Relationship Specialty Start Date End Date Patsy Hair MD [address] [place] [address] PCP - General 06/26/20 documented as of this encounter
--- OUTSIDE RECORDS SUMMARY | 2024-12-19 10:45 | XMS_ITS | Encounter Summary ---
Author Organization [facility] Address [address] [place] [address] Care Team Providers Care Leach Runner Name Role Phone Patsy Hair MD Primary Care Provider [phone] Encounter Details Date Type Department Care Team [...] Description 03/20/2025 12:50 PM EST Office Visit [place] [facility] [address] [place] [address] Marta Willis, PLANT RELIABILITY ENGINEER [address] [place] [address] documented as of this encounter Visit Diagnoses Not on filedocumented in this encounter Additional Health Concerns Assessment Noted Time A fall risk assessment has been complete d for the patient 01/18/2024 8:55 AM EST A Body Mass Index follow-up plan has been documented for the patient 01/18/2024 9:38 AM EST documented as of this encounter Care Teams Leach Runner Relationship Specialty Start Date End Date Patsy Hair MD [address] [place] [address] PCP - General 06/26/20 documented as of this encounter
--- OUTSIDE RECORDS SUMMARY | 2024-12-19 10:46 | XMS_ITS | Encounter Summary ---
Author Organization [facility] Address [address] [place] [address] Care Team Providers Care Auto Rental Supervisor Name Role Phone Patsy Hair MD Primary Care Provider [phone] Reason for Visit * Reason Onset Date Comments Med Refill 03/30/2021 Encounter Details Date Type Department Care Team (Late st Contact Info) Description 03/30/2021 Refill [facility] [address] [place] [id number] Yarelis Hutchison, ACTIVE DIRECTORY ADMINISTRATOR, DNP [address] [address] Social History Tobacco Use Types [...] Description 03/20/2025 12:50 PM EST Office Visit [facility] [address] [place] [address] Marta Willis, ACTIVE DIRECTORY ADMINISTRATOR [address] [place] [address] documented as of this encounter Visit Diagnoses Not on filedocumented in this encounter Additional Health Concerns Assessment Noted Time A fall risk assessment has been complete d for the patient 11/23/2020 2:47 PM EDT documented as of this encounter Care Teams Auto Rental Supervisor Relationship Specialty Start Date End Date Patsy Hair MD [address] [place] [address] PCP - General 06/26/20 documented as of this encounter
--- OUTSIDE RECORDS SUMMARY | 2024-12-19 10:46 | XMS_ITS | Encounter Summary ---
Author Organization [place] [address] Care Team Providers Care Manager Home Healthcare Name Role Phone Patsy Hair MD Primary Care Provider [phone] Crystal Osborne MD Unavailable [phone] Reason for Visit * Reason Onset Date Comments Relaying Information 09/24/2024 Case Manage ment Plan from [facility] faxed Encounter Details Date Type Department Care Team (Late st Contact Info) Description 09/24/2024 Telephone [facility] [address] [place] [address] Patsy Hair MD [address] [place] [address] Relaying Information (Case Management Plan from [facility] faxed) Social History Tobacco Use Types Packs/Day [...] Information Who is Calling: Insurance Company/Law Office [facility]: Brigitte (include office company andcaller's name) What information is the caller relaying:Patient called [facility] Case Management reporting the following: - Using tobacco products (unsure of how much) - Limited mobility concerns (falls in the home) - Chronic Pain (over 8 medication for this) - Reported COPD - End Stage Renal Disease. [facility] is following up with PCP who participates in the case management program to develop a care plan for the patient. This care plan was faxed to the provider by the human resources office manager yesterday. If this fax is returned, Brigitte does not need a return call back. Further follow-up needed? No Return Method of Communication:N/A Additional Information:N/A documented in this encounter Plan of Treatment Upcoming Encounters Date Type Department Care Team (Late st Contact Info) Description 01/20/2025 3:15 PM EST Office Visit [facility] [address] [place] [address] Crystal Osborne MD [address] [facility] [address] [place] [address] 02/26/2025 10:40 AM EST Office Visit [facility] [place] [address] [place] [address] Tiago Franz MD [address] [facility] [place] [address] 09/25/2025 10:00 AM EDT Appointment [facility] [address] [facility] [address] [place] [address] Amaris Sommer [address] [place] [address] 09/25/2025 11:00 AM EDT Office Visit [facility] [address] [facility] [address] [place] [address] [address] [place] [address] [phone] documented as of this encounter Goals Goal Patient Goal Type Associated Problems Recent Progress Patient-Stated? Author Eat better, exercise, reach an ideal body weight General No Vanna Rooney RMAyaz Stay Tobacco Free Lifestyle No Vanna Rooney RMA documented as of this encounter Visit Diagnoses Not on filedocumented in this encounter Care Teams Manager Home Healthcare Relationship Specialty Start Date End Date Patsy Hair MD [address] [place], [place] [id number] PCP - General Family Medicine 07/19/13 Crystal Osborne MD [address] [address] Internal Medicine-Nephrology 12/06/23 documented as of this encounter
--- OUTSIDE RECORDS SUMMARY | 2024-12-19 10:46 | XMS_ITS | Clinical Summary ---
Author Organization [facility] Address [address] [place] [address] Phone Care Team Providers Care Music Agent Name Role Phone Patsy Hair MD Primary Care Provider [phone] Crystal Osborne MD Unavailable [phone] Allergies No known active allergies Medications folic acid (FOLVITE) 1 mg Oral Tablet Take 1 mg by mouth daily. Active methotrexate 2.5 mg Oral Tablet Take 2.5 mg by mouth once a week. Take 6 tabs PO every week Active hydrOXYchloroQU INE (PLAQUENIL) 200 mg Oral TabletIndicatio ns:Rheumatoid arthritis, involving unspecified site, unspecified whether rheumatoid factor present ([facility]) Active HUMIRA PEN 40 mg/0.8 mL SubQ Pen Injector KitIndications: Rheumatoid arthritis, involving unspecified site, unspecified whether rheumatoid factor present ([facility]) Active triamcinolone (KENALOG) 0.1 % Top OintmentIndicat ions:Cracked skin APPLY TOPICALLY TO AFFECTED AREA 2 TIMES A DAY FOR 10 DAYS 80 g Active clotrimazole (LOTRIMIN) 1 % Top Cream Apply topically 2 times daily. 24 g Active mupirocin (BACTROBAN) 2 % Top OintmentIndicat ions:Cellulitis of leg, left Apply topically 3 times daily. 15 g Active Additional Information Patient not taking.Reported on 10/30/2024 diclofenac (VOLTAREN) 1 % Top Gel Active nicotine (NICODERM CQ) 21 mg/24 hr TD Patch [address] 1 Patch onto the skin every 24 hours. 28 Patch 1 Active Additional Information Patient not taking.Reported on 12/16/2024 ferrous sulfate 325 mg (65 mg iron) Oral Tablet Take 1 Tablet by mouth daily. 90 Tablet 3 Active Syringe with Needle, Disp, (BD LUER-SUSAN SYRINGE) 3 mL 25 x 5/8 Misc Syringe USE DIRECTED ONCE MONTHLY 1 Each Active lidocaine (LIDODERM) 5 % Top Adhesive Patch, Medicated Place 1 Patch onto the skin daily. 30 Patch 11 Active mirtazapine (REMERON) 15 mg Oral TabletIndicatio ns:Rheumatoid arthritis, involving unspecified site, unspecified whether rheumatoid factor present (HCC),Unintende d weight loss Take 1 Tablet by mouth nightly. 90 Tablet 3 025 Active albuterol (PROVENTIL) 2.5 mg /3 mL (0.083 %) Inhl Solution for NebulizationInd ications:Dyspne a, unspecified type Take 3 mL by nebulization every 4 hours as needed for Wheezing. 1620 mL 025 Active predniSONE (DELTASONE) 20 mg Oral TabletIndicatio ns:COPD with acute exacerbation (HCC) TAKE 3 TABLETS BY MOUTH ONCE A DAY FOR 3 DAYS THEN DECREASE BY 1 TABLET EVERY 3 DAYS UNTIL GONE 18 Tablet 2 Active Additional Information Patient not taking.Reported on 12/16/2024 Brompheniramine -Pseudoeph-DM 2-30-10 mg/5 mL Oral Syrup Take 10 mL by mouth every 4 hours as needed. 240 mL 1 025 Active potassium chloride (KLOR-CON M) 20 mEq Oral Tab Sust.Rel. Particle/Conchita lIndications:Hy pokalemia Take 1 Tablet by mouth daily. 90 Tablet 3 025 Active rivaroxaban (XARELTO) 2.5 mg Oral Tablet Take 1 Tablet by mouth 2 times daily. 60 Tablet 5 025 Active albuterol (PROVENTIL HFA;VENTOLIN HFA) 90 mcg/actuation Inhl HFA Aerosol InhalerIndicati ons:Wheeze Inhale 2 Puffs into the lungs every 4 hours as needed. for wheezing 18 g 2 Active budesonide-glyc opyr-formoterol (BREZTRI AEROSPHERE) 160-9-4.8 mcg/actuation Inhl HFA Aerosol InhalerIndicati ons:COPD with acute exacerbation (HCC) Inhale 2 Puffs into the lungs 2 times daily. 10.7 g 11 Active alendronate (FOSAMAX) 70 mg Oral Tablet Take 1 Tablet by mouth once a week. 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 90 Capsule 3 Active clopidogreL (PLAVIX) 75 mg Oral Tablet Take 1 Tablet by mouth daily. 90 Tablet Active doxepin (SINEQUAN) 10 mg Oral Capsule Take 1 Capsule by mouth nightly. 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 200 Capsule 1 Active escitalopram oxalate (LEXAPRO) 20 mg Oral TabletIndicatio ns:Generalized anxiety disorder Take 1 Tablet by mouth daily. 90 Tablet 025 Active famotidine (PEPCID) 40 mg Oral TabletIndicatio ns:Generalized abdominal pain Take 1 Tablet by mouth every evening. 90 Tablet 025 Active omeprazole (PRILOSEC) 40 mg Oral Capsule, Delayed Release(E.C.) TAKE 1 CAPSULE BY MOUTH ONCE A DAY 90 Capsule 025 Active rimegepant (NURTEC ODT) 75 mg Oral Tablet, Rapid DissolveIndicat ions:Migraine without aura and without status migrainosus, not intractable DISSOLVE 1 TABLET ON THE TONGUE EVERY 48 HOURS ONLY NEEDED FOR MIGRAINE 8 Tablet 6 07/30/2 025 Active atorvastatin (LIPITOR) 40 mg Oral Tablet Take 1 Tablet by mouth daily. 90 Tablet 3 025 Active ANORO ELLIPTA 62.5-25 mcg/actuation Inhl Disk with DeviceIndicatio ns:COPD with acute exacerbation (HCC) Inhale 1 Puff into the lungs daily. 60 Each 2 025 Active fUROsemide (LASIX) 20 mg Oral TabletIndicatio ns:Peripheral edema TAKE 1 TABLET BY MOUTH ONCE A DAY NEEDED FOR SWELLING 90 Tablet 1 025 Active doxycycline monohydrate (MONODOX) 100 mg Oral Capsule Take 100 mg by mouth 2 times daily. 025 Active TRELEGY ELLIPTA 200-62.5-25 mcg Inhl Disk with Device Inhale 1 Puff into the lungs daily. 025 Active fUROsemide (LASIX) 40 mg Oral Tablet Take 40 mg by mouth daily. 025 Active terbinafine HCL (LAMISIL) 250 mg Oral TabletIndicatio ns:Tinea pedis of both feet TAKE 1 TABLET BY MOUTH ONCE A DAY 30 Tablet 1 025 Active gabapentin (NEURONTIN) 800 mg Oral TabletIndicatio ns:Rheumatoid arthritis, involving unspecified site, unspecified whether rheumatoid factor present (HCC),Vitamin B 12 deficiency,Melissa roesophageal reflux disease without esophagitis,Imm unocompromised, Atherosclerosis of [place] artery of both lower extremities with intermittent claudication,PA D (peripheral artery disease),Stage 3b chronic kidney disease (HCC) TAKE 1 TABLET BY MOUTH EVERY NIGHT MAY take additional 1/2 TABLET EVERY MORNING AND EVERY afternoon NEEDED 60 Tablet 025 Active cyanocobalamin 1,000 mcg/mL Inj SolutionIndicat ions:Vitamin B 12 deficiency INJECT 1 ML INTRAMUSCULARLY ONCE MONTHLY 1 mL 025 Active cyanocobalamin 1,000 mcg/mL Inj SolutionIndicat ions:Vitamin B 12 deficiency Inject 1 mL into the muscle every 30 days. [place]/syringe also please 1 mL 11 024 2024 Discontinued gabapentin (NEURONTIN) 800 mg Oral TabletIndicatio ns:Rheumatoid arthritis, involving unspecified site, unspecified whether rheumatoid factor present (HCC),Vitamin B 12 deficiency,Melissa roesophageal reflux disease without esophagitis,Imm unocompromised, Atherosclerosis of [place] artery of both lower extremities with intermittent claudication,PA D (peripheral artery disease),Stage 3b chronic kidney disease (HCC) TAKE 1 TABLET BY MOUTH EVERY EVENING MAY TAKE ADDITIONAL 1/2 TABLET EVERY MORNING AND EVERY AFTERNOON NEEDED 60 Tablet 025 2024 Discontinued Active Problems Patient Care Coordination No te Formatting of this note migh t be different from the original. Care gap audit completed by Lisa Gerber RN on 12/21/2021. CSTA: 06/01/18 (TYPE): Chronic pain KEN: 04/15/17, 03/15/17 UDS: 06/01/18 GALO: 06/01/18 01/11/22 KEN #[id number] (as expected) Hill Santamaria MD Problem Noted [...] COPD (chronic obstructive pulmonary disease) Atherosclerosis of [place] of both lower extremities with [...] tubular adenoma [address] silva at [facility] 01/27/2021 Overview (01/27/2021): On humira. rheumatology Assessment & Plan (06/08/2024 7:02 PM [...] to renal disease 09/22/2023 12/17/2023 Atherosclerosis of [place] of both lower extremities with bilateral ulceration 01/11/2022 06/08/2024 Ulcer of extremity due to ch ronic venous insufficiency 01/11/2022 06/08/2024 Basal cell carcinoma of skin, unspecified 08/14/2018 08/10/2023 Overview (08/10/2023): Ileostomy in place 09/05/2015 8 Overview (09/05/2015): Due to diverticulitis surgery Encounters Date Type Department Care Team Description 12/19/2024 Telephone [facility] [address] [address] Marito Franz MD Results (Echo, stress test) 12/16/2024 8:29 AM EST - 12/16/2024 11:59 PM EST Hospital Encounter GRT STRESS TEST [address] [place] [address] Marito Franz MD Routine adult health maintenance; SOB (shortness of breath); Smoker; Chronic bronchitis, unspecified chronic bronchitis type (HCC); Abnormal CT scan of heart; ASCVD (arteriosclerotic cardiovascular disease); Primary hypertension Discharge Disposition: Home or Self Care 12/16/2024 8:00 AM EST - 12/16/2024 8:28 AM EST Hospital Encounter [facility] [address] [place] [address] Marito Franz MD Routine adult health maintenance; SOB (shortness of breath); Smoker; Chronic bronchitis, unspecified chronic bronchitis type (HCC); Abnormal CT scan of heart; ASCVD (arteriosclerotic cardiovascular disease); Primary hypertension Discharge Disposition: Home or Self Care 12/16/2024 7:59 AM EST Hospital Encounter [facility] NUC MED [address] [place] [address] Marito Franz MD Routine adult health maintenance; SOB (shortness of breath); Smoker; Chronic bronchitis, unspecified chronic bronchitis type (HCC); Abnormal CT scan of heart; ASCVD (arteriosclerotic cardiovascular disease); Primary hypertension Discharge Disposition: Home or Self Care 11/29/2024 Refill [facility] [address] [place] [address] Patsy Hair MD Medication Refill 11/06/2024 Telephone [facility] [address] [place] [address] Patsy Hair MD Relaying Information (90 day supply needed for future refills ) 10/30/2024 9:40 AM EDT Office Visit [facility] [address] [place] [id number] Marito Franz MD Routine adult health maintenance (Primary Dx); SOB (shortness of breath); Smoker; Chronic bronchitis, unspecified chronic bronchitis type (HCC); Abnormal CT scan of heart; ASCVD (arteriosclerotic cardiovascular disease); Primary hypertension 10/27/2024 Travel 10/20/2024 Refill [place] [address] [place] [address] Patsy Hair MD Medication Refill 10/11/2024 10:15 AM EDT Office Visit [place] [address] [place] [address] Patsy Hair MD Community acquired pneumonia of left lower lobe of lung (Primary Dx); Visual disturbance; Chronic obstructive pulmonary disease, unspecified COPD type (HCC); CYP2C9 intermediate metabolizer (HCC); Fibrosis of lung (HCC); ILD (interstitial lung disease) (HCC) 10/09/2024 Travel 09/24/2024 Refill [place] [address] [place] [address] Patsy Hair MD Medication Refill 09/24/2024 Telephone [place] [address] [place] [address] Patsy Hair MD Relaying Information (Case Management Plan from [facility] faxed) 09/20/2024 8:45 AM EDT Clinical Support [place] [address] [place] [address] Shani Jimenez MA Decreased potassium in the blood 09/20/2024 Results Follow-Up [place] [address] [place] [address] Patsy Hair MD COMPREHENSIVE METABOLIC PANEL 09/20/2024 Orders Only [place] [address] [place] [address] Patsy Hair MD Decreased potassium in the blood (Primary Dx) 09/18/2024 Travel from Last 3 Months Immunizations Immunization Administration [...] LENS ; Surgeon: Mitesh Hammond MD; Location: [facility]; Service: Ophthalmology Medical devices from this surgery are in the Medical Devices section. CATARACT REMOVAL 10/06/2011 Right RIGHT EYE CATARACT EXTRACTION WITH PHACOEMULSIFICATION AND INTRAOCULAR LENS ; Surgeon: Mitesh Hammond MD; Location: [facility]; Service: Ophthalmology Medical devices from this [...] awhile COPD (chronic obstructive pu lmonary disease) ([facility]) Hyperlipidemia Basal cell carcinoma of skin , unspecified 08/14/2018 Formatting of this note migh t be different from the original. Allergy Anemia Osteoporosis GERD (gastroesophageal reflux disease) Encounter for blood transfusion Cataract Depression Chronic kidney disease Colon polyp CHF (congestive heart failure) (HCC) Family History Medical History Relation Name Comments Diabetes Brother Tim Nickerson Insulin no long er needed Cancer Father Janee Elise Esopagal th en spread everwhere Colon Polyps Father Janee Elise Esophageal Cancer Father Janee Elise High Blood Pressure Father Janee Elise High Cholesterol Father Janee Elise Hypertension Father Janee Elise Irritable Bowel Syndrome Father Janee Elise Hearing Loss Mother Alvina Khan Sudden hearing loss Arthritis Paternal Grandmother Janee pinon Diabetes Paternal Grandmother Janee Elise Hearing Loss Paternal Grandmother Janee Elise Had to wear hearing aids. Kidney Disease Paternal Grandmother Janee Elise O Anesth Problems Neg Hx Relation Name Status Comments Brother Tim Nickerson Alive Father Janee Elise Mother Alvina Khan Alive Paternal Grandmother Janee Elise Social History Tobacco Use Types Packs/Day Years [...] Description 01/20/2025 3:15 PM EST Office Visit [facility] Neph[place] [address] Crystal Osborne MD [address] [place] [address] 02/26/2025 10:40 AM EST Office Visit [facility] [address] [address] Marito Franz MD [address] [place], [place] [id number] 09/25/2025 10:00 AM EDT Appointment [facility] [address] [place] [address] [employer] [address] [place], [place] [id number] 09/25/2025 11:00 AM EDT Office Visit [facility] [address] [place] [address] [employer] [address] [place] [address] [address] [place], [place] [id number] Health Maintenance Due Date Last Done Comments Zoster (1 of 2) 1981 HPV/Pap Cotest 1992 FIT 10/04/2007 Sigmoidoscopy 10/04/2007 Virtual Colonography 10/04/2007 RSV or 60+ (1 - Risk 50-74 years 1-dose series) 2012 COVID-19 Vaccine (3 - Moderna risk series) 12/08/2020 11/10/2020, 10/08/2020 Cologuard 05/19/2023 05/18/2020, 05/18/2020 Influenza Vaccine (#1) 2024 , 11/26/2021, 04/15/2017 (Declined), Additional history exists Wellness Exam Medicare 12/16/2024 12/16/2023 Cervical Cancer Screening 03/30/2025 Pap Smear 03/30/2025 03/30/2022, 09/2013 (Declined), 02/13/2009 Breast Cancer Screening 04/16/2025 [...] [employer] Medical Devices Implanted Type Area Plug Making Operator Device Identifier Shelf Expiration Date Model / Serial / Lot Lens Intraocular 24.5 Diopter Acrysof Iq 13.0mm Length 6.0mm Aspheric Optic 0 Degree Modified-L Haptic - [id number] Implanted:Qty: 1 on 09/22/2011 by Mitesh Hammond MD at [facility] Left: Eye YE LAB:SURG 02/14/2016 [id number]. 5 / [id number] / Lens Intraocular 23.5 Diopter Acrysof Iq 13.0mm Length 6.0mm Aspheric Optic 0 Degree Modified-L Haptic - [id number] Implanted:Qty: 1 on 10/06/2011 by Mitesh Hammond MD at [facility] YE LAB:SURG 06/13/2016 [id number]. 5 / [id number] / Procedures Procedure Name Priority Date/Time Associated Diagnosis Comments EC ECHOCARDIOGRAM COMPLETE W DOPPLER AND COLOR FLOW MAPPING Routine 12/16/2024 12:07 PM EST Routine adult health maintenance SOB (shortness of breath) Smoker Chronic bronchitis, unspecified chronic bronchitis type (HCC) Abnormal CT scan of heart ASCVD (arteriosclerotic cardiovascular disease) Primary hypertension ST STRESS TEST LEXISCAN Routine 12/16/2024 11:20 AM EST Routine adult health maintenance SOB (shortness of breath) Smoker Chronic bronchitis, unspecified chronic bronchitis type (HCC) Abnormal CT scan of heart ASCVD (arteriosclerotic cardiovascular disease) Primary hypertension NM MYOCARDIAL PERFUSION SPECT STRESS AND REST Routine 12/16/2024 10:49 AM EST Routine adult health maintenance SOB (shortness of breath) Smoker Chronic bronchitis, unspecified chronic bronchitis type (HCC) Abnormal CT scan of heart ASCVD (arteriosclerotic cardiovascular disease) Primary hypertension POCT EKG Routine 10/30/2024 9:44 AM EDT Routine adult health maintenance COMPREHENSIVE METABOLIC PANEL Routine 09/20/2024 8:42 AM EDT Decreased potassium in the blood CT LUNG CANCER SCREENING LOW DOSE Routine 08/30/2024 11:35 AM EDT Screening for malignant neoplasm of respiratory organ Personal history of tobacco use, presenting hazards to health COLONOSCOPY Routine 06/07/2023 1:47 PM EDT Weight loss Nausea MM MAMMO DIGITAL YOVANY SCREEN BILAT Routine 04/17/2023 9:09 AM EST Unintended weight loss Encounter for screening mammogram for breast cancer [facility] CYT[facility]Y REQUEST (PAP ONLY) Routine 03/30/2022 11:44 AM EST Pap smear for cervical cancer screening COLOGUARD Routine 05/18/2020 10:58 AM EDT Screening for colon cancer HCV ANTIBODY SCREEN W/ REFLEX Routine 09/03/2016 9:20 AM EDT Need for hepatitis C screening test from Last 3 Months or Most Recently Relevant to Health Maintenance Results * EC ECHOCARDIOGRAM COMPLETE W DOPPLER [...] 3 mmHg. * No significant valve disease. Marito Franz MD IM ECHO ORDERABLES Final Result * ST STRESS TEST LEXISCAN (12/16/2024 11:20 AM EST) Anatomical Region Laterality Modality Cardiac Stress T esting 12/16/2024 9:47 AM EST Impressions 12/16/2024 10:38 AM EST [facility] Test Date: 2024-12-16 Pat Name: JANEE ELISE Department: DEPID Room: Gender: Female Displayer Merchandise: Shasta Jones RN : 1960 Requested By: MARITO Heller Order Number: [id number] Reading MD: Andreas Segura MD Interpretive Statements [...] test none. During test c/o chest tightness 7-810, easing throughout test, & resolved in recovery. [...] Andreas Segura MD - 12/16/[address] [facility] Test Date: 2024-12-16 Pat Name: JANEE ELISE Department: DEPID Room: Gender: Female Displayer Merchandise: Shasta Jones RN : 1960 Requested By: MARITO Heller Order Number: [id number] Reading MD: Andreas Segura MD Interpretive Statements [...] 4:30 PM EDT [facility] eGFR (CKD-EPIcr 2020) 43(L) >=60 mL/min/1.7 3 m2 09/20/2024 4:30 PM EDT [email or web address] Comment:Estimated GFR was ca lculated using the CKD-EPIcr (2020) equation refit without race. The equation is recommended by the National Kidney Foundation - [place] [employer] of Nephrology Task Force. Blood VENOUS BLOOD / Unknown Venipuncture / Unknown 09/20/2024 8:42 AM EDT 09/20/2024 8:42 AM EDT us Patsy Hair MD CHEMISTRY ORDERABLES Final Res ult [email or web address] [address] , [place] [address] * CT LUNG CANCER SCREENING LOW DOSE [...] contact the office of the ordering clinician. [email or web address] Narrative 08/30/2024 11:[address] LUNG CANCER SCREENING LOW DOSE 08/30/2024 11:35 AM CLINICAL HISTORY: Asymptomatic patient meeting NCCN high risk criteria for lung screening. Z12.2-Encounter for screening for malignant neoplasm of respiratory usjlyo-HFW-48-CM Z87.891-Personal history of nicotine weuerkrufz-PYP-36-CM. COMPARISON: 08/30/2023 07/27/2021 PROCEDURE COMMENTS: Noncontrast, low-dose, [...] Continued ANNUAL LOW-DOSE SCREENING CT SCAN (IMG 60378) suggested if age <78. Lung-RADS Modifier S: Clinically Significant or Potentially Significant Findings (Non Lung Cancer) Procedure Note Jose Calix MD - 08/30/2024 CT LUNG CANCER SCREENING LOW DOSE 08/30/2024 11:35 AM CLINICAL HISTORY: Asymptomatic patient meeting NCCN high risk criteria forlung screening. Z12.2-Encounter for screening for malignant neoplasm ofrespiratory dvlwfs-XPK-93-CM Z87.891-Personal history of nicotine ooqjedzvqc-UOY-15-CM. COMPARISON: 08/30/2023 07/27/2021 PROCEDURE COMMENTS: Noncontrast, low-dose, [...] Continued ANNUAL LOW-DOSE SCREENING CT SCAN ([place] [address])suggested if age <78. Lung-RADS Modifier S: Clinically [...] please contactthe office of the ordering clinician. [email or web address] us Patsy Hair MD [facility] CT ORDERABLES Final Result * COLONOSCOPY (06/07/2023 1:47 PM EDT) Anatomical [...] MD Performing Provider Kayla Gomez RN Director Of Institutional Research Terell Aiken CRNA [employer] Medications See Anesthesia Record. Preprocedure A history [...] EST Impressions 04/17/2023 10:20 AM EST Negative (ZHR-Bwjohdrh-7) ~ RECOMMENDATION: Routine screening mammogram in 1 [...] the next mammogram, in accordance with the [place] [employer] and the Society of Breast Imaging recommendations. Narrative 04/17/2023 10:20 AM EST Procedure:MM MAMMO DIGITAL YOVANY SCREEN BILAT ~ Reason for exam: screening, asymptomatic. R63.4-Abnormal weight jiby-CYF-91-CM Z12.31-Encounter for screening mammogram for malignant neoplasm of foyiwv-FQU-39-CM ~ MM MAMMO DIGITAL YOVANY SCREEN BILAT Bilateral CC and MLO view(s) were taken. There are scattered fibroglandular densities. Prior study comparison: Compared with prior studies the most recent being 04/27/21, 11/15/18 No mammographic evidence of malignancy. ~ Procedure Note Amparo Ugalde MD - 04/17/2023 Procedure:MM MAMMO DIGITAL YOVANY SCREEN BILAT ~ Reason for exam: screening, asymptomatic. R63.4-Abnormal weight zoqx-PXU-81-CM Z12.31-Encounter for screening mammogram for malignant neoplasm of gysnkd-SYT-72-CM ~ MM MAMMO DIGITAL YOVANY SCREEN BILAT Bilateral CC and MLO view(s) were taken. There are scattered fibroglandular densities. Prior study comparison: Compared with prior studies the most recentbeing 04/27/21, 11/15/18 No mammographic evidence of malignancy. ~ IMPRESSION: Negative (WOF-Wquxgrwn-7) ~ RECOMMENDATION: Routine screening mammogram in 1 [...] the next mammogram, in accordance with the [place] [employer] and the Society of Breast Imaging recommendations. Patsy Hair MD [facility] MAMMOGRAPHY ORDERABLES Fin al Result * (ABNORMAL) [facility] CYTOLOGY REQUEST (PAP ONLY) (03/30/2022 11:44 AM EST) CASE REPORT Gynecologic Cytology Report Case: [id number] Authorizing Provider: Patsy Hair MD Collected: 03/30/2022 1144 Ordering Location: [facility] Received: 03/30/2022 1144 First Screen: Noah Fermin, CT Pathologist: Shelli Cunningham MD Specimen: LIQUID-BASED PAP - CERVICAL/ENDOCERV ICAL, Cervix, Endocervical 03/31/2022 12:50 PM EST [facility] PAP FINAL DIAGNOSIS Low grade squamous intraepithelial lesion(A) 03/31/2022 12:50 PM EST [facility] at 1250 EST MICROSCOPIC DESCRIPTION Microscopic examination is performed and the findings corroborate the diagnosis. 03/31/2022 12:50 PM EST [facility] PAP SMEAR ADEQUACY Satisfactory for evaluation 03/31/2022 12:50 PM EST [facility] ENDOCERVICAL T-ZONE Transformation zone absent. 03/31/2022 12:50 PM EST [facility] EMBEDDED IMAGES 12:50 PM [facility] PAP DISCLAIMER The Pap Smear is a screening test that aids in the detection of cervical cancer and cancer precursors. Both false positive and false negative results can occur. The test should be used at regular intervals, and positive results should be confirmed before definitive therapy. Processed using the ThinPrep [employer] Machine Helper Automated cytology screening device ([employer]). 03/31/2022 12:50 PM [facility] Thin Prep ENDOCERVICAL STRUCTURE / Unknown 03/30/2022 11:44 AM EST 03/30/2022 11:44 AM EST us Patsy Hair MD CYTOLOGY ORDERABLES [place] [address] * COLOGUARD (05/18/2020 10:58 AM EDT) COLOGUARD [...] screened with both Cologuard and colonoscopy. (Flako Louis al, N Engl J Med 2014;370(14):3201-6834) The normal value (reference range) for this assay is negative. COLOGUARD RE-SCREENING RECOMMENDATION: Periodic routine colorectal cancer screening is an important part of preventive healthcare for asymptomatic persons at average risk for colorectal cancer. Following a negative Cologuard result, the [place] [employer] Society and U.S. Multi-Society Task Force screening guidelines recommend a Cologuard re-screening interval of 3 years. References: [place] [employer] Society (ACS). Colorectal cancer prevention and early detection. [place], [place]: [employer]; [updated 2015Jun 06]. https://www.cancer.org/cancer/sygjv-tfulpn-mamrcg/srftchbnc-hbcrettup-gvfeauu/ac s-rec ommendations.html. Accessed October 13, 2017; Karl DK, Efrain LYN, Isacc ShaferK, Colorectal Cancer Screening: Recommendations for Physicians and Patients from the U.S. Multi-Society Task Force on Colorectal Cancer Screening, Am J Gastroenterology 2017; 112:7534-9492. TEST TYPE: Composite algorithmic analysis of stool [...] interval of every 3 years by the [employer] and U.S. Multi-Society Task Force. [...] can be accessed at the following location: www.MyFuelUp/results. Additional description of the Cologuard test process, warnings and precautions can be found at www.cologuardtest.com. Rx only. Stool specimen (specimen) 05/18/2020 10:58 AM EDT 05/19/2020 5:43 PM EDT us Patsy Hair MD EXACT SCIENCE - ORDERABLES Fin al Result Performing Organization Address [facility]/ZIP Co de Phone Number [employer], [place] [address], [facility] [email or web address] [address] [place] [address] * HEPATITIS C ANTIBODY - SCREENING (09/03/2016 9:20 AM EDT) Hep C Ab Negative Negative [facility] Blood specimen (specimen) 09/03/2016 9:20 AM EDT 09/03/2016 3:54 PM EDT us Patsy Hair MD HEMATOLOGY ORDERABLES Final Re sult [facility] [address] [place] [address] from Last 3 Months or Most Recently Relevant to Health Maintenance Insurance [facility] [address] DUAL COMPLETE O [place] [facility] DUAL COMPLETE HMO [place]DS Care Teams Music Agent Relationship Specialty Start Date End Date Patsy Hair MD [address] [place] [address] PCP - General Family Medicine 07/19/13 Crystal Osborne MD [address] [facility] [address] [place] [address] Internal Medicine-Nephrology 12/06/23
--- OUTSIDE RECORDS SUMMARY | 2024-12-19 10:46 | XMS_ITS | Encounter Summary ---
Author Organization [place] [address] Care Team Providers Care It Applications Analyst Name Role Phone Patsy Hair MD Primary Care Provider [phone] Crystal Osborne MD Unavailable [phone] Encounter Details Date Type Department Care Team (Late st Contact Info) Description 09/20/2024 Results Follow-Up [facility] [address] [place] [phone] Patsy Hair MD [address] [place] [address] COMPREHENSIVE METABOLIC PANEL Social History Tobacco Use [...] Description 01/20/2025 3:15 PM EST Office Visit [facility] Nephrology [address] [place] [address] Crystal Osborne MD [address] [facility] [address] [place] [address] 02/26/2025 10:40 AM EST Office Visit [facility] [place] [address] [place] [address] Tiago Franz MD [address] [facility] [place] [address] 09/25/2025 10:00 AM EDT Appointment [facility] [address] [place] [address] Amaris Sommer APRN [address] [facility] [address] [place] [address] 09/25/2025 11:00 AM EDT Office Visit [facility] [address] [place] [address] Amaris Sommer APRN [address] [facility] [address] [place], [place] [id number] documented as of this encounter Goals Goal Patient Goal Type Associated Problems Recent Progress Patient-Stated? Author Eat better, exercise, reach an ideal body weight General No Vanna Rooney RMA Stay Tobacco Free Lifestyle No Vanna Rooney RMA documented as of this encounter Visit Diagnoses Not on filedocumented in this encounter Care Teams It Applications Analyst Relationship Specialty Start Date End Date Patsy Hair MD [address] [place] [address] PCP - General Family Medicine 07/19/13 Crystal Osborne MD [address] [place] [address] [address] [place] [address] Internal Medicine-Nephrology 12/06/23 documented as of this encounter
--- OUTSIDE RECORDS SUMMARY | 2024-12-19 10:46 | XMS_ITS | Encounter Summary ---
Author Organization [place] [address] Care Team Providers Care Pediatrics Physician Name Role Phone Patsy Hair MD Primary Care Provider [phone] Crystal Osborne MD Unavailable [phone] Reason for Visit * Reason Comments Medication Refill Encounter Details Date Type Department Care Team (Late st Contact Info) Description 11/29/2024 Refill [facility] [address] [place] [phone] Patsy Hair MD [address] [place], [place] [id number] Medication Refill Social History Tobacco Use Types [...] Refills Last Filled Start Date End Date cyanocobalamin 1,000 mcg/mL Inj SolutionIndicatio ns:Vitamin B 12 deficiency INJECT 1 ML INTRAMUSCULARLY ONCE MONTHLY 1 mL gabapentin (NEURONTIN) 800 mg Oral TabletIndications :Rheumatoid arthritis, involving unspecified site, unspecified whether rheumatoid factor present (HCC),Vitamin B 12 deficiency,Gastro esophageal reflux disease without esophagitis,Immun ocompromised,Athe rosclerosis of lime artery of both lower extremities with intermittent claudication,PAD (peripheral artery disease),Stage 3b chronic kidney disease (HCC) TAKE 1 TABLET BY MOUTH EVERY NIGHT MAY take additional 1/2 TABLET EVERY MORNING AND EVERY afternoon NEEDED 60 Tablet 5 documented in this encounter Miscellaneous Notes * Telephone Encounter - Doris Grace MA - 11/29/2024 1:24 PM EDT doroteo: 10/11/24 last refill: 09/11/24 documented in this encounter Plan of Treatment Upcoming Encounters Date Type Department Care Team (Late st Contact Info) Description 01/20/2025 3:15 PM EST Office Visit [facility] Nephrology [address] [place] [address] Crystal Osborne MD [address] [facility] [address] [place] [address] 02/26/2025 10:40 AM EST Office Visit [facility] [place] [address] [place] [address] Tiago Franz MD [address] [place] [address] 09/25/2025 10:00 AM EDT Appointment [facility] [address] [facility] [address] [place] [address] [facility] [address] [place] [id number] 09/25/2025 11:00 AM EDT Office Visit [facility] [address] [place] [address] [address] [place] [address] [facility] [address] [place], [place] [phone] documented as of this encounter Goals Goal [...] reflux Immunocompromised Unspecified immunity deficiency Atherosclerosis of lime artery of both lower extremities with intermittent claudication Atherosclerosis of lime arteries of the extremities with intermittent claudication PAD (peripheral artery disease) Unspecified disorders of arteries and arterioles Stage 3b chronic kidney disease (HCC) COPD with acute exacerbation (HCC) Obstructive chronic bronchitis with exacerbation documented in this encounter Discontinued Medications Medication Sig Discontinue Reason Start Date End Da te cyanocobalamin 1,000 mcg/mL Inj SolutionIndications:Vit landers B 12 deficiency Inject 1 mL into the muscle every 30 days. [place]/syringe also please 10/31/2023 11/29/2024 gabapentin (NEURONTIN) 800 mg Oral TabletIndications:Rheum atoid arthritis, involving unspecified site, unspecified whether rheumatoid factor present (HCC),Vitamin B 12 deficiency,Gastroesopha geal reflux disease without esophagitis,Immunocompr omised,Atherosclerosis of lime artery of both lower extremities with intermittent claudication,PAD (peripheral artery disease),Stage 3b chronic kidney disease (HCC) TAKE 1 TABLET BY MOUTH EVERY EVENING MAY TAKE ADDITIONAL 1/2 TABLET EVERY MORNING AND EVERY AFTERNOON NEEDED 09/11/2024 11/29/2024 documented as of this encounter Care Teams Pediatrics Physician Relationship Specialty Start Date End Date Patsy Hair MD [address] [place] [address] PCP - General Family Medicine 07/19/13 Crystal Osborne MD [address] [facility] [address] [place] [phone] Internal Medicine-Nephrology 12/06/23 documented as of this encounter
--- OUTSIDE RECORDS SUMMARY | 2024-12-19 10:46 | XMS_ITS | Encounter Summary ---
Author Organization [place] [address] Care Team Providers Care Conveyor Installer Name Role Phone Patsy Hair MD Primary Care Provider [phone] Crystal Osborne MD Unavailable [phone] Reason for Visit * Reason Onset Date Comments Results 09/15/2024 Lab result given Encounter Details Date Type Department Care Team (Late Contact Info) Description 09/15/2024 Results Follow-Up [facility] [address] [place] [phone] Patsy Hair MD [address] [place] [address] CBC WITH DIFF, COMPREHENSIVE METABOLIC PANEL, LIPID [...] Description 01/20/2025 3:15 PM EST Office Visit [facility] Nephrology [address] [place] [address] Crystal Osborne MD [address] [facility] [address] [place] [address] 02/26/2025 10:40 AM EST Office Visit [facility] [place] [address] [place] [address] Tiago Franz MD [address] [facility] [place], [place] [phone] 09/25/2025 10:00 AM EDT Appointment [facility] [address] [facility] [address] [place] [address] [facility] [address] [place] [address] 09/25/2025 11:00 AM EDT Office Visit [facility] [address] [facility] [address] [place] [address] [facility] [address] [place], [place] [phone] documented as of this encounter Goals Goal Patient Goal Type Associated Problems Recent Progress Patient-Stated? Author Eat better, exercise, reach an ideal body weight General No Vanna Rooney RMAyaz Stay Tobacco Free Lifestyle No Vanna Rooney RMA documented as of this encounter Visit Diagnoses Not on filedocumented in this encounter Care Teams Conveyor Installer Relationship Specialty Start Date End Date Patsy Hair MD [address] [place], [place] [phone] PCP - General Family Medicine 07/19/13 Crystal Osborne MD [address] [facility] [address] [place] [address] Internal Medicine-Nephrology 12/06/23 documented as of this encounter
== END 2024-12-19 23:59 | disposition home or self-care (01) ==
LOC: RT 10:38
PROVIDERS: PCP Family Medicine; Visit Provider Internal Medicine Pulmonary Disease
DX: R94.2 Abnormal results of pulmonary function studies (principal); R06.09 Other forms of dyspnea; R06.02 Shortness of breath
CPT/HCPCS: 94618